=== PATIENT | male | born 1945 | race Hispanic/Latino ===

== ENCOUNTER 2016-10-02 16:33 | Observation (INO) | payer MEDICARE, OTHER ==
[2016-10-02 16:33] VITALS: BMI 22.1
[2016-10-02 17:18] LABS: BASO % 0.1 % (0.0-2.0); EOS # 0.5 K/uL (0.0-0.7); HEMATOCRIT 39.9 % (35.0-51.0); LYMPH # 2.5 K/uL (1.0-4.3); LYMPH % 32.3 % (20.0-40.0); MEAN CELL VOLUME 95.7 fl (80.0-94.0); MEAN CORPUSCULAR HEMOGLOBIN 32.1 pg (27.0-31.0); MEAN CORPUSCULAR HGB CONC 33.6 g/dL (33.0-37.0); MEAN PLATELET VOLUME 7.9 fl (7.2-11.7); MONO # 0.6 K/uL (0.0-0.8); MONO % 8.1 % (0.0-10.0); NEUT # 4.2 K/uL (1.8-7.0); NEUT % 53.5 % (50.0-75.0); RED CELL DISTRIBUTION WIDTH 14.3 % (11.5-14.5); WHITE BLOOD COUNT 7.8 K/uL (4.8-10.8)
[2016-10-02 17:28] LABS: ALB/GLOB RATIO 1.3 (1.0-2.1); ALKALINE PHOSPHATASE 56 U/L (38-126); ALT/SGPT 19 U/L (21-72); AST/SGOT 31 U/L (17-59); BILIRUBIN,TOTAL 0.5 mg/dl (0.2-1.3); BLOOD UREA NITROGEN 11 mg/dl (9-20); CALCIUM 9.1 mg/dL (8.4-10.2); CARBON DIOXIDE 25 mmol/L (22-30); CHLORIDE 105 mmol/L (98-107); CHOLESTEROL 135 mg/dL (0-199); GFR AFRICAN-AMERICAN > 60; GLUCOSE,RANDOM 91 mg/dL (75-110); POTASSIUM 3.7 MMOL/L (3.6-5.0); SODIUM 143 mmol/l (132-148); TOTAL PROTEIN 6.6 G/DL (6.3-8.2)
[2016-10-02 17:36] LABS: PARTIAL THROMBOPLASTIN TIME 28.3 SECONDS (23.3-32.5)
[2016-10-02 17:43] LABS: LIPASE < 10 U/L (23-300)
--- NOTE | 2016-10-02 18:55 | ED PDOC ---
HPI: Chest Pain Time Seen by Provider: 10/02/16 16:48 Chief Complaint (Nursing): Chest Pain Chief Complaint (Provider): Chest Pain History Per: Patient History/Exam Limitations: no limitations Onset/Duration Of Symptoms: Hrs (since this morning) Current Symptoms Are (Timing): Still Present Severity: Moderate Quality: Sharp ("like lightning", w/radiation to right) Associated Symptoms: Other (right knee pain w/radiation up towards right thigh) Additional Complaint(s): Xenia Blakely is a 70 year old male, with a past medical history inclusive of CAD (s/p HI and coronary stent placement x3), CHF, HTN, hyperlipidemia, COPD, diabetes and MS, who presents to the ED on 10/02/16, via EMS, for the evaluation of moderate chest pain that had woken him up from sleep this morning. Pain, localized centrally with radiation to the right, is further described as "sharp like lightning". Denies associated diaphoresis, shortness of breath, nausea, vomiting or abdominal pain. Patient is an active smoker. Of note, patient has a secondary complaint of right knee pain, described a as a burning sensation that radiates up into his thigh. Reports a prior history of restless leg syndrome. 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: [employer] Past Medical History Reviewed: Historical Data, Nursing Documentation, Vital Signs Vital Signs: Last Vital Signs Temp 98.0 F 10/02/16 16:40 Pulse 70 10/02/16 19:59 Resp 16 10/02/16 19:59 BP 99/33 L 10/02/16 19:59 Pulse Ox 99 10/02/16 19:59 - Medical History PMH: Anxiety, Asthma, Bronchitis, CAD (s/p HI), Cardia Arrhythmia, CHF, COPD, CVA, Depression, Diabetes, Emphysema, Fractures, HTN, Hypercholesterolemia, Hyperlipidemia, Multiple Sclerosis, TIA Denies: HIV, Chronic Kidney Disease - Surgical History Surgical History: Cholecystectomy, Coronary Stent (x3) Denies: CABG - Family History Family History: States: Diabetes - Social History Current smoker - smoking cessation education provided: Yes (light (<10 cigarettes/day)) Alcohol: Other (yes) Drugs: Denies - Home Medications Home Medications: Ambulatory Orders Medication Instructions Recorded Aspirin [Adult Low Dose Aspirin EC] 81 mg PO DAILY 06/06/16 Carvedilol [Coreg] 3.125 mg PO DAILY 06/06/16 Glyburide/Metformin HCl 1 tab PO BID 06/06/16 [Glyburide-Metformin 2.5-500 mg] Sertraline [Zoloft] 50 mg PO DAILY 06/06/16 Tamsulosin [Flomax] 0.4 mg PO DAILY 06/06/16 rOPINIRole [Requip] 0.5 mg PO BID 06/06/16 traMADol [Ultram] 50 mg PO TID 06/06/16 - Allergies Allergies/Adverse Reactions: Allergies Allergy/AdvReac Type Severity Reaction Status Date / Time ampicillin Allergy ANAPHYLAXIS Verified 10/02/16 16:40 codeine AdvReac HEADACHE Verified 10/02/16 16:40 Review of Systems ROS Statement: Except As Marked, All Systems Reviewed And Found Negative Constitutional: Negative for: Sweats Cardiovascular: Positive for: Chest Pain (centralized w/radiation to right, "sharp like lightning") Respiratory: Negative for: Shortness of Breath Gastrointestinal: Negative for: Nausea, Vomiting Physical Exam - Reviewed Nursing Documentation Reviewed: Yes Vital Signs Reviewed: Yes - Physical Exam Appears: Positive for: Non-toxic, No Acute Distress Head Exam: Positive for: ATRAUMATIC, NORMOCEPHALIC Skin: Positive for: Normal Color, Warm, Dry Eye Exam: Positive for: Normal appearance, PERRL Neck: Positive for: Normal, Painless ROM, Supple Cardiovascular/Chest: Positive for: Regular Rate, Rhythm, Chest Non Tender. Negative for: Murmur Respiratory: Positive for: Normal Breath Sounds. Negative for: Respiratory Distress Gastrointestinal/Abdominal: Positive for: Normal Exam, Soft. Negative for: Tenderness Extremity: Positive for: Normal ROM. Negative for: Swelling Neurologic/Psych: Positive for: Alert, Oriented - Laboratory Results Result Diagrams: 10/02/16 17:00 10/02/16 17:00 - ECG O2 Sat by Pulse Oximetry: 98 (RA) Pulse Ox Interpretation: Normal Medical Decision Making Medical Decision Makin:48 Initial Impression: chest pain EKG done in triage is unchanged from previous. Initial Plan: * CXR * XR Right Knee * Labs * Lipase * Lipid Panel * Troponin I * PTT * PT * Aspirin 162mg PO * Reevaluation Discussed case with Dr. Pandya, who has requested that the patient be admitted under the hospitalist. Scribe Attestation: Documented by Christi Cole, acting as a scribe for Annie Cunningham PA-C. Provider Scribe Attestation: All medical record entries made by the Scribe were at my direction and personally dictated by me. I have reviewed the chart and agree that the record accurately reflects my personal performance of the history, physical exam, medical decision making, and the department course for this patient. I have also personally directed, reviewed, and agree with the discharge instructions and disposition. Disposition - Clinical Impression Clinical Impression: Chest pain - Patient ED Disposition Is Patient to be Admitted: Yes Counseled Patient/Family Regarding: Diagnosis - Disposition Disposition Time: 20:03 Condition: GOOD - Pt Status Changed To: Hospital Disposition Of: Observation - Admit Certification Admit to Inpatient:: Telemetry - POA Present On Arrival: None
--- NOTE | 2016-10-02 20:06 | CP.PCM.HP ---
History of Present Illness - History of Present Illness History of Present Illness: CC: Chest pain, R knee pain HPI: This is a 69 y/o male with MHx significant for CAD with multiple stents, COPD, DM2, HTN, and HLD who comes in with c/o R knee pain and CP. He states that R knee pain started 2-3 days ago. It is described as a burning pain in the thigh with numbness at the knee. There is pain in the knee with motion. Denies any exertion or injury. Regarding the CP, this is somewhat of an exacerbation of his chronic CP it sounds like. While it may have been worse when he came in, now he states it is 'under control'. Denies f/cough/c/n/v/d. Patient has had multiple admissions for CP in the past ROS: 14 pt. ROS negative other than HPI. MHx: DM2, CAD, COPD, HTN, HLD SHx: Coronary stents, eye surgery Allergies: Ampicillin, Codeine Medications: As per HPI Family hx: Reviewed, no relevant family history Social hx: Lives alone, does not drink EtOH, Smokes ~1/2 ppd Surrogate dec mkr: Brother, Rodríguez Blakely, Present on Admission - Present on Admission Any Indicators Present on Admission: No Past Patient History - Infectious Disease Hx of Infectious Diseases: None - Tetanus Immunizations Tetanus Immunization: Unknown - Past Medical History & Family History Past Medical History?: Yes - Past Social History Alcohol: Other (yes) Drugs: Denies - CARDIAC Hx Cardia Arrhythmia: Yes Hx Congestive Heart Failure: Yes Hx Hypercholesterolemia: Yes Hx Hypertension: Yes - PULMONARY Hx Asthma: Yes Hx Bronchitis: Yes Hx Chronic Obstructive Pulmonary Disease (COPD): Yes Hx Emphysema: Yes - NEUROLOGICAL Hx Multiple Sclerosis: Yes Hx Transient Ischemic Attacks (TIA): Yes - HEENT Hx HEENT Problems: Yes Hx Cataracts: Yes - RENAL Hx Chronic Kidney Disease: No - ENDOCRINE/METABOLIC Hx Endocrine Disorders: Yes Hx Diabetes Mellitus Type 2: Yes - HEMATOLOGICAL/ONCOLOGICAL Hx Human Immunodeficiency Virus (HIV): No - INTEGUMENTARY Hx Dermatological Problems: No - MUSCULOSKELETAL/RHEUMATOLOGICAL Hx Fractures: Yes - GASTROINTESTINAL Hx Gastrointestinal Disorders: No - GENITOURINARY/GYNECOLOGICAL Hx Genitourinary Disorders: No - PSYCHIATRIC Hx Anxiety: Yes Hx Depression: Yes - SURGICAL HISTORY Hx Cholecystectomy: Yes Hx Coronary Artery Bypass Graft: No Hx Coronary Stent: Yes (x3) - ANESTHESIA Hx Anesthesia: Yes Hx Anesthesia Reactions: No Hx Malignant Hyperthermia: No Meds Allergies/Adverse Reactions: Allergies Allergy/AdvReac Type Severity Reaction Status Date / Time ampicillin Allergy ANAPHYLAXIS Verified 10/02/16 16:40 codeine AdvReac HEADACHE Verified 10/02/16 16:40 Physical Exam - Constitutional Appears: No Acute Distress - Head Exam Head Exam: ATRAUMATIC, NORMOCEPHALIC - Eye Exam Eye Exam: EOMI, PERRL - ENT Exam ENT Exam: Mucous Membranes Moist - Neck Exam Neck exam: Positive for: Full Rom - Respiratory Exam Respiratory Exam: Clear to Auscultation Bilateral, NORMAL BREATHING PATTERN - Cardiovascular Exam Cardiovascular Exam: REGULAR RHYTHM, +S1, +S2 - GI/Abdominal Exam GI & Abdominal Exam: Normal Bowel Sounds, Soft - Extremities Exam Additional comments: RLE with pain in the knee with passive motion, TTP about knee joint. No obvious swelling/redness/effusion noted. Does not appear to have any neurological deficits. - Neurological Exam Neurological exam: CN II-XII Intact, Oriented x3 - Psychiatric Exam Psychiatric exam: Normal Affect, Normal Mood - Skin Skin Exam: Dry, Warm Results - Vital Signs Recent Vital Signs: Last Vital Signs Temp 98.0 F 10/02/16 16:40 Pulse 70 10/02/16 19:59 Resp 16 10/02/16 19:59 BP 99/33 L 10/02/16 19:59 Pulse Ox 98 10/02/16 20:04 - Labs Result Diagrams: 10/02/16 17:00 10/02/16 17:00 Labs: Laboratory Results - last 24 hr 10/02/16 17:00 WBC 7.8 RBC 4.16 L Hgb 13.4 Hct 39.9 MCV 95.7 H MCH 32.1 H MCHC 33.6 RDW 14.3 Plt Count 189 MPV 7.9 Neut % (Auto) 53.5 Lymph % (Auto) 32.3 [place] % (Auto) 8.1 Eos % (Auto) 6.0 H Baso % (Auto) 0.1 Neut # 4.2 Lymph # 2.5 [place] # 0.6 Eos # 0.5 Baso # 0.0 PT 12.0 H INR 1.15 H APTT 28.3 Sodium 143 Potassium 3.7 Chloride 105 Carbon Dioxide 25 Anion Gap 16 BUN 11 Creatinine 0.9 Est GFR ( Amer) > 60 Est GFR (Non-Af Amer) > 60 Random Glucose 91 Calcium 9.1 Total Bilirubin 0.5 AST 31 ALT 19 L D Alkaline Phosphatase 56 Troponin I 0.0230 Total Protein 6.6 Albumin 3.7 Globulin 2.9 Albumin/Globulin Ratio 1.3 Triglycerides 114 D Cholesterol 135 LDL Cholesterol Direct 93 HDL Cholesterol 24 L Lipase < 10 L - EKG Data EKG Interpreted by: Myself EKG shows normal: Sinus rhythm Rate: Normal - Impressions Impression: PACs, IVCD with RBBB pattern, ?LVH - Imaging and Cardiology Chest x-ray Status: Image reviewed by me (prominent gastric bubble, some ? hyperinflation) Assessment & Plan (1) Chest pain Assessment and Plan: 69 y/o male with known CAD, HTN, HLD, DM2, and BPH who comes in to the ER again with c/o CP. Multiple admissions with similar complaints in the recent past. 1) CP, r/o ACS -Admit obs-tele -Serial trops -Repeat EKG in AM -ASA 325, SLNG PRN -Cont home medications for HLD and HTN -Cardiology consult with [facility] 2) DM2 -DM diet -ACHS Accucheck with SSI 3) Knee pain (r) -- no trauma, XR unrevealing -Pain control -Ortho consult in AM 4) DVT PPx - SQ Lovenox Status: Acute Priority: High (2) DVT prophylaxis Status: Acute (3) DM2 (diabetes mellitus, type 2) Status: Chronic Priority: Low (4) HTN (hypertension) Status: Chronic Priority: Low (5) HLD (hyperlipidemia) Status: Acute (6) Knee pain, acute Status: Acute
[2016-10-02] MEDS ORDERED: Oxycodone/Acetaminophen 5/325 mg Tab PO PRN (20:43)
[2016-10-02] MEDS ORDERED: Oxycodone/Acetaminophen 5/325 mg Tab ONE (21:42)
[2016-10-02] MEDS: Insulin Lispro (humaLOG) 100 Units/ml Inj SC SCH (22:34)
[2016-10-03] MEDS: Insulin Lispro (humaLOG) 100 Units/ml Inj SC SCH ×2 (06:45→12:05)
[2016-10-03 07:09] LABS: BASO # 0.1 K/uL (0.0-0.2); BASO % 1.1 % (0.0-2.0); EOS # 0.4 K/uL (0.0-0.7); HEMATOCRIT 39.9 % (35.0-51.0); LYMPH # 2.4 K/uL (1.0-4.3); MEAN CELL VOLUME 96.2 fl (80.0-94.0); MEAN CORPUSCULAR HEMOGLOBIN 32.5 pg (27.0-31.0); MEAN CORPUSCULAR HGB CONC 33.8 g/dL (33.0-37.0); MEAN PLATELET VOLUME 8.5 fl (7.2-11.7); MONO # 0.6 K/uL (0.0-0.8); MONO % 7.7 % (0.0-10.0); NEUT # 3.7 K/uL (1.8-7.0); NEUT % 51.2 % (50.0-75.0); RED CELL DISTRIBUTION WIDTH 14.4 % (11.5-14.5); WHITE BLOOD COUNT 7.2 K/uL (4.8-10.8)
[2016-10-03 07:23] LABS: BLOOD UREA NITROGEN 12 mg/dl (9-20); CALCIUM 8.9 mg/dL (8.4-10.2); CARBON DIOXIDE 27 mmol/L (22-30); CHLORIDE 105 mmol/L (98-107); GFR AFRICAN-AMERICAN > 60; GLUCOSE,RANDOM 73 mg/dL (75-110); POTASSIUM 4.4 MMOL/L (3.6-5.0); SODIUM 144 mmol/l (132-148)
[2016-10-03 08:10] VITALS: RESP 18
[2016-10-03] MEDS ORDERED: Patient's Own Med (Glyburide/Metformin Hcl [Glyburide-Metformin 2.5-500 Mg] 1 TAB) PO SCH (09:00)
[2016-10-03] MEDS ORDERED: Enoxaparin 40 mg Syringe SC SCH (09:00)
[2016-10-03] MEDS ORDERED: ROPINIROLE 0.5 MG PO SCH (09:00)
--- NOTE | 2016-10-03 09:07 | CP.PCM.CON ---
History of Present Illness - History of Present Illness History of Present Illness: 70 yo M with pmhx of MS, sig CAD, multiple stents, COPD, DMII, htn and hld admitted for c/o chest pain presents with c/o right knee pain. Orthopaedics consulted for evaluation and mangement of right knee pain. Pt states the right knee pain comes and goes, currently rates it a 7/10. Pt states he sometimes has pain due to his MS condition, however this knee pain started 2-3 days ago. Pt ambulates with cane for assistance. Pt denies any trauma or recent injury to right knee. Pt denies numbness/tingling to RLE. Review of Systems - Review of Systems Review of Systems: as per HPI Past Patient History - Infectious Disease Hx of Infectious Diseases: None - Tetanus Immunizations Tetanus Immunization: Unknown - Past Medical History & Family History Past Medical History?: Yes - Past Social History Smoking Status: Current Some Days Smoker - CARDIAC Hx Cardia Arrhythmia: Yes Hx Congestive Heart Failure: Yes Hx Hypercholesterolemia: Yes Hx Hypertension: Yes - PULMONARY Hx Asthma: Yes Hx Bronchitis: No Hx Chronic Obstructive Pulmonary Disease (COPD): Yes Hx Emphysema: Yes - NEUROLOGICAL Hx Multiple Sclerosis: Yes Hx Transient Ischemic Attacks (TIA): Yes - HEENT Hx HEENT Problems: Yes - RENAL Hx Chronic Kidney Disease: No - ENDOCRINE/METABOLIC Hx Endocrine Disorders: Yes Hx Diabetes Mellitus Type 2: Yes - HEMATOLOGICAL/ONCOLOGICAL Hx AIDS: No Hx Human Immunodeficiency Virus (HIV): No - INTEGUMENTARY Hx Dermatological Problems: No - MUSCULOSKELETAL/RHEUMATOLOGICAL Hx Musculoskeletal Disorders: No Hx Falls: No - GASTROINTESTINAL Hx Gastrointestinal Disorders: No - GENITOURINARY/GYNECOLOGICAL Hx Genitourinary Disorders: No - PSYCHIATRIC Hx Anxiety: Yes Hx Depression: No Hx Substance Use: No - SURGICAL HISTORY Hx Cholecystectomy: Yes Hx Coronary Artery Bypass Graft: No Hx Coronary Stent: Yes (x3) - ANESTHESIA Hx Anesthesia: Yes Hx Anesthesia Reactions: No Hx Malignant Hyperthermia: No Meds Allergies/Adverse Reactions: Allergies Allergy/AdvReac Type Severity Reaction Status Date / Time ampicillin Allergy ANAPHYLAXIS Verified 10/02/16 16:40 codeine AdvReac HEADACHE Verified 10/02/16 16:40 - Medications Medications: Current Medications Acetaminophen (Tylenol 325mg Tab) 650 mg PO Q6 PRN PRN Reason: Pain, Mild (1-3) Acetaminophen (Tylenol 325mg Tab) 650 mg PO Q6 PRN PRN Reason: Fever >100.4 F Aspirin (Aspirin) 325 mg PO DAILY [facility] Carvedilol (Coreg) 3.125 mg PO DAILY [facility] Enoxaparin Sodium (Lovenox) 40 mg SC DAILY [facility] PRN Reason: Protocol Glyburide (Micronase) 2.5 mg PO BID [facility] Home Med (Ropinirole [Requip]) 0.5 mg PO BID [facility] Insulin Human Lispro (Humalog) 0 units SC ACHS [facility] PRN Reason: Protocol Last Admin: 10/03/16 06:45 Dose: Not Given Metformin HCl (Glucophage) 500 mg PO BID [facility] Nitroglycerin (Nitrostat Sl Tab) 0.4 mg SL Q5M PRN PRN Reason: chest pain Oxycodone/Acetaminophen (Percocet 5/325 Mg Tab) 1 tab PO Q6 PRN PRN Reason: Pain, severe (8-10) Stop: 10/05/16 20:44 Last Admin: 10/02/16 21:52 Dose: 1 tab Sertraline HCl (Zoloft) 50 mg PO DAILY [facility] Tamsulosin HCl (Flomax) 0.4 mg PO DAILY [facility] Tramadol HCl (Ultram) 50 mg PO TID PRN PRN Reason: Pain, moderate (4-7) Physical Exam - Constitutional Appears: Well, No Acute Distress Additional comments: Right Knee: No effusion +TTP over medial joint line Normal ROM, no pain with ROM Active flexion to 95deg, full extension Neg anterior/posterior draw test Neg Micaela test Calves soft and nontender b/l N/V intact Distal pulses wnl Results - Vital Signs Recent Vital Signs: Last Vital Signs Temp 97.9 F 10/03/16 08:10 Pulse 62 10/03/16 08:10 Resp 18 10/03/16 08:10 BP 162/92 H 10/03/16 08:10 Pulse Ox 97 10/03/16 08:10 - Labs Result Diagrams: 10/03/16 06:00 10/03/16 06:00 Labs: Laboratory Results - last 24 hr 10/02/16 10/03/16 10/03/16 22:33 05:46 06:00 WBC 7.2 RBC 4.15 L Hgb 13.5 Hct 39.9 MCV 96.2 H MCH 32.5 H MCHC 33.8 RDW 14.4 Plt Count 180 MPV 8.5 Neut % (Auto) 51.2 Lymph % (Auto) 34.0 [place] % (Auto) 7.7 Eos % (Auto) 6.0 H Baso % (Auto) 1.1 Neut # 3.7 Lymph # 2.4 [place] # 0.6 Eos # 0.4 Baso # 0.1 Sodium 144 Potassium 4.4 Chloride 105 Carbon Dioxide 27 Anion Gap 15 BUN 12 Creatinine 0.9 Est GFR ( Amer) > 60 Est GFR (Non-Af Amer) > 60 POC Glucose (mg/dL) 93 76 Random Glucose 73 L Calcium 8.9 Troponin I 0.0250 Assessment & Plan - Assessment and Plan (Free Text) Assessment: 70 yo M with pmhx of MS, CAD< COPD, DMII, htn, hld presents with acute right knee pain AP and lat xrays of right knee reviewed and discussed with pt Xrays reveal mild to moderate OA of right knee, more prominent on medial side Recommend: Pain control PT/OT Pt can f/u in office for management of right knee OA
--- NOTE | 2016-10-03 10:23 | RAD ---
HISTORY: chest pain COMPARISON: June 24, 2016 TECHNIQUE: Chest PA and lateral FINDINGS: LUNGS: No active pulmonary disease. PLEURA: No significant pleural effusion identified. No pneumothorax apparent. CARDIOVASCULAR: Normal. OSSEOUS STRUCTURES: No significant abnormalities. VISUALIZED UPPER ABDOMEN: Normal. OTHER FINDINGS: None. IMPRESSION: No active disease. No significant interval change compared to the prior examination(s).
[2016-10-03] MEDS ORDERED: Lidocaine 5% Patch TD STA (11:43)
--- NOTE | 2016-10-03 12:09 | CP.PCM.CON ---
History of Present Illness - History of Present Illness History of Present Illness: THE PATIENT IS A 70 YEAR OLD MALE WITH A HISTORY OF CAD WITH AN OLD AWMI WHO HAS CORONARY STENT INSERTIONS, HYPERTENSION, HYPERLIPIDEMIA, DM, OLD CVA, CHEST WALL PAIN AND ARTHRITIS. HE NOW CAME TO THE ER FOR RIGHT KNEE PAIN BUT ALSO STATES THAT HE HAD ATYPICAL STABBING CHEST PAIN YESTERDAY EVEN BUT IT IS ESSENTIALY GONE. HE DENIES NAUSEA, VOMITING OR DIAPHORESIS. CARDDIOLOGY WAS ASKED TO SEE HIM. Past Patient History - Infectious Disease Hx of Infectious Diseases: None - Tetanus Immunizations Tetanus Immunization: Unknown - Past Medical History & Family History Past Medical History?: Yes - Past Social History Smoking Status: Current Some Days Smoker - CARDIAC Hx Cardia Arrhythmia: Yes Hx Congestive Heart Failure: Yes Hx Hypercholesterolemia: Yes Hx Hypertension: Yes - PULMONARY Hx Asthma: Yes Hx Bronchitis: No Hx Chronic Obstructive Pulmonary Disease (COPD): Yes Hx Emphysema: Yes - NEUROLOGICAL Hx Multiple Sclerosis: Yes Hx Transient Ischemic Attacks (TIA): Yes - HEENT Hx HEENT Problems: Yes - RENAL Hx Chronic Kidney Disease: No - ENDOCRINE/METABOLIC Hx Endocrine Disorders: Yes Hx Diabetes Mellitus Type 2: Yes - HEMATOLOGICAL/ONCOLOGICAL Hx AIDS: No Hx Human Immunodeficiency Virus (HIV): No - INTEGUMENTARY Hx Dermatological Problems: No - MUSCULOSKELETAL/RHEUMATOLOGICAL Hx Musculoskeletal Disorders: No Hx Falls: No - GASTROINTESTINAL Hx Gastrointestinal Disorders: No - GENITOURINARY/GYNECOLOGICAL Hx Genitourinary Disorders: No - PSYCHIATRIC Hx Anxiety: Yes Hx Depression: No Hx Substance Use: No - SURGICAL HISTORY Hx Cholecystectomy: Yes Hx Coronary Artery Bypass Graft: No Hx Coronary Stent: Yes (x3) - ANESTHESIA Hx Anesthesia: Yes Hx Anesthesia Reactions: No Hx Malignant Hyperthermia: No Meds Allergies/Adverse Reactions: Allergies Allergy/AdvReac Type Severity Reaction Status Date / Time ampicillin Allergy ANAPHYLAXIS Verified 10/02/16 16:40 codeine AdvReac HEADACHE Verified 10/02/16 16:40 - Medications Medications: Current Medications Acetaminophen (Tylenol 325mg Tab) 650 mg PO Q6 PRN PRN Reason: Pain, Mild (1-3) Acetaminophen (Tylenol 325mg Tab) 650 mg PO Q6 PRN PRN Reason: Fever >100.4 F Aspirin (Aspirin) 325 mg PO DAILY [facility] Last Admin: 10/03/16 09:12 Dose: 325 mg Carvedilol (Coreg) 3.125 mg PO DAILY [facility] Last Admin: 10/03/16 09:13 Dose: 3.125 mg Enoxaparin Sodium (Lovenox) 40 mg SC DAILY [facility] PRN Reason: Protocol Last Admin: 10/03/16 09:16 Dose: 40 mg Glyburide (Micronase) 2.5 mg PO BID [facility] Last Admin: 10/03/16 09:16 Dose: 2.5 mg Home Med (Ropinirole [Requip]) 0.5 mg PO BID [facility] Insulin Human Lispro (Humalog) 0 units SC ACHS [facility] PRN Reason: Protocol Last Admin: 10/03/16 12:05 Dose: Not Given Metformin HCl (Glucophage) 500 mg PO BID [facility] Last Admin: 10/03/16 09:14 Dose: 500 mg Nitroglycerin (Nitrostat Sl Tab) 0.4 mg SL Q5M PRN PRN Reason: chest pain Oxycodone/Acetaminophen (Percocet 5/325 Mg Tab) 1 tab PO Q6 PRN PRN Reason: Pain, severe (8-10) Stop: 10/05/16 20:44 Last Admin: 10/02/16 21:52 Dose: 1 tab Sertraline HCl (Zoloft) 50 mg PO DAILY [facility] Last Admin: 10/03/16 09:16 Dose: 50 mg Tamsulosin HCl (Flomax) 0.4 mg PO DAILY [facility] Last Admin: 10/03/16 09:14 Dose: 0.4 mg Tramadol HCl (Ultram) 50 mg PO TID PRN PRN Reason: Pain, moderate (4-7) Last Admin: 10/03/16 09:21 Dose: 50 mg Physical Exam - Respiratory Exam Respiratory Exam: Clear to Auscultation Bilateral - Cardiovascular Exam Cardiovascular Exam: REGULAR RHYTHM, +S1 - Additional Findings Additional findings: EKG NSR, IRBBB, OLD ASWMI TROPONINS NEGATIVE Results - Vital Signs Recent Vital Signs: Last Vital Signs Temp 97.9 F 10/03/16 08:10 Pulse 62 10/03/16 09:13 Resp 18 10/03/16 08:10 BP 162/92 H 10/03/16 09:13 Pulse Ox 97 10/03/16 08:10 - Labs Result Diagrams: 10/03/16 06:00 10/03/16 06:00 Labs: Laboratory Results - last 24 hr 10/02/16 10/03/16 10/03/16 22:33 05:46 06:00 WBC 7.2 RBC 4.15 L Hgb 13.5 Hct 39.9 MCV 96.2 H MCH 32.5 H MCHC 33.8 RDW 14.4 Plt Count 180 MPV 8.5 Neut % (Auto) 51.2 Lymph % (Auto) 34.0 [place] % (Auto) 7.7 Eos % (Auto) 6.0 H Baso % (Auto) 1.1 Neut # 3.7 Lymph # 2.4 [place] # 0.6 Eos # 0.4 Baso # 0.1 Sodium 144 Potassium 4.4 Chloride 105 Carbon Dioxide 27 Anion Gap 15 BUN 12 Creatinine 0.9 Est GFR ( Amer) > 60 Est GFR (Non-Af Amer) > 60 POC Glucose (mg/dL) 93 76 Random Glucose 73 L Calcium 8.9 Troponin I 0.0250 Assessment & Plan - Assessment and Plan (Free Text) Assessment: CAD PRESENT CHEST PAIN IS ATYPICAL AND EKG IS UNCHANGED FROM OLD ONE AND TROPONINS ARE NEGATICE HYPERTENSION RIGHT KNEE ARTHRITIS Plan: CONTINUE ASPIRIN, CARVEDILOL,, VALSARTAN, LOVENOX OK TO DISCHARGE PATIENT FROM CARDIAC [facility] WILL DO STRESS TEST OUT PATIENT
[2016-10-03 12:27] VITALS: BP 167/98; PULSE 66; TEMP 97.6; O2SAT 99
--- NOTE | 2016-10-03 13:54 | RAD ---
PROCEDURE: Right Knee Radiographs. HISTORY: right knee pain COMPARISON: None. FINDINGS: BONES: Normal. No fracture. JOINTS: Normal. No osteoarthritis. JOINT EFFUSION: None. OTHER FINDINGS: None. IMPRESSION: No significant or acute findings to account for/ related to the clinical presentation.
--- NOTE | 2016-10-03 14:09 | CP.PCM.DIS ---
Provider - Provider Date of Admission: 10/02/16 20:03 Attending physician: Dariana Maria MD Primary care physician: Dr House Consults: Cardio: Dr House Ortho: Dr Phillips Time Spent in preparation of Discharge (in minutes): 35 Diagnosis - Discharge Diagnosis (1) Chest pain Status: Acute Priority: High (2) Knee pain, acute Status: Acute (3) COPD (chronic obstructive pulmonary disease) Status: Chronic Priority: Low (4) DM2 (diabetes mellitus, type 2) Status: Chronic Priority: Low (5) HTN (hypertension) Status: Chronic Priority: Low Hospital Course - Lab Results Lab Results: Most Recent Lab Values WBC 7.2 K/uL (4.8-10.8) 10/03/16 06:00 RBC 4.15 Mil/uL (4.40-5.90) L 10/03/16 06:00 Hgb 13.5 g/dL (12.0-18.0) 10/03/16 06:00 Hct 39.9 % (35.0-51.0) 10/03/16 06:00 MCV 96.2 fl (80.0-94.0) H 10/03/16 06:00 MCH 32.5 pg (27.0-31.0) H 10/03/16 06:00 MCHC 33.8 g/dL (33.0-37.0) 10/03/16 06:00 RDW 14.4 % (11.5-14.5) 10/03/16 06:00 Plt Count 180 K/uL (130-400) 10/03/16 06:00 MPV 8.5 fl (7.2-11.7) 10/03/16 06:00 Neut % (Auto) 51.2 % (50.0-75.0) 10/03/16 06:00 Lymph % (Auto) 34.0 % (20.0-40.0) 10/03/16 06:00 [place] % (Auto) 7.7 % (0.0-10.0) 10/03/16 06:00 Eos % (Auto) 6.0 % (0.0-4.0) H 10/03/16 06:00 Baso % (Auto) 1.1 % (0.0-2.0) 10/03/16 06:00 Neut # 3.7 K/uL (1.8-7.0) 10/03/16 06:00 Lymph # 2.4 K/uL (1.0-4.3) 10/03/16 06:00 [place] # 0.6 K/uL (0.0-0.8) 10/03/16 06:00 Eos # 0.4 K/uL (0.0-0.7) 10/03/16 06:00 Baso # 0.1 K/uL (0.0-0.2) 10/03/16 06:00 PT 12.0 SECONDS (9.6-11.2) H 10/02/16 17:00 INR 1.15 (0.92-1.08) H 10/02/16 17:00 APTT 28.3 SECONDS (23.3-32.5) 10/02/16 17:00 Sodium 144 mmol/l (132-148) 10/03/16 06:00 Potassium 4.4 MMOL/L (3.6-5.0) 10/03/16 06:00 Chloride 105 mmol/L (98-107) 10/03/16 06:00 Carbon Dioxide 27 mmol/L (22-30) 10/03/16 06:00 Anion Gap 15 (10-20) 10/03/16 06:00 BUN 12 mg/dl (9-20) 10/03/16 06:00 Creatinine 0.9 mg/dL (0.8-1.5) 10/03/16 06:00 Est GFR ( Amer) > 60 10/03/16 06:00 Est GFR (Non-Af Amer) > 60 10/03/16 06:00 POC Glucose (mg/dL) 119 mg/dL (65-110) H 10/03/16 12:01 Random Glucose 73 mg/dL (75-110) L 10/03/16 06:00 Calcium 8.9 mg/dL (8.4-10.2) 10/03/16 06:00 Total Bilirubin 0.5 mg/dl (0.2-1.3) 10/02/16 17:00 AST 31 U/L (17-59) 10/02/16 17:00 ALT 19 U/L (21-72) L D 10/02/16 17:00 Alkaline Phosphatase 56 U/L (38-126) 10/02/16 17:00 Troponin I 0.0170 ng/mL (0.00-0.120) 10/03/16 12:41 Total Protein 6.6 G/DL (6.3-8.2) 10/02/16 17:00 Albumin 3.7 g/dL (3.5-5.0) 10/02/16 17:00 Globulin 2.9 gm/dL (2.2-3.9) 10/02/16 17:00 Albumin/Globulin Ratio 1.3 (1.0-2.1) 10/02/16 17:00 Triglycerides 114 mg/DL (0-149) D 10/02/16 17:00 Cholesterol 135 mg/dL (0-199) 10/02/16 17:00 LDL Cholesterol Direct 93 mg/dL (0-129) 10/02/16 17:00 HDL Cholesterol 24 MG/DL (30-70) L 10/02/16 17:00 Lipase < 10 U/L (23-300) L 10/02/16 17:00 - Hospital Course Hospital Course: 69 y/o male with known CAD, HTN, HLD, DM2, COPD and BPH who comes in to the ER again with c/o CP. Multiple admissions with similar complaints in the recent past. EKG no change from previous. Troponin x 3 negative. Cardio consulted. Also complained of Right knee pain . Xray : degenerative changes. Ortho consulted- rec Pain mgt and Physical therapy and ff up as outpt. pain improved with Ultram and Lidoderm patch 1) Chest Pain, ACS ruled out likely musculoskeletal Pain - observed in Telemetry - started on ASA, BB, ARB and statin - no EKG change - Trop x 3 neg -Cardiology - Dr House consulted 2) Right knee Pain likely Osteoarthritis, primary - Knee Xray : OA -Ortho consulted- rec Pain meds and PT -PT consulted- rec Outpt PT - Pain med- Ultram and Lidoderm patch- pain improved 3. DM type II -ACHS Accucheck with SSI - cont Metformin and Glyburide 4. COPD, chronic , stable - cont Advair and prn Alb/Atrovent 5. HTN uncontrolled - cont Coreg , add Diovan DVT PPx - SQ Lovenox Discharge Exam - Head Exam Head Exam: ATRAUMATIC, NORMAL INSPECTION, NORMOCEPHALIC - Eye Exam Eye Exam: EOMI, Normal appearance Pupil Exam: NORMAL ACCOMODATION - ENT Exam ENT Exam: Mucous Membranes Moist, Normal External Ear Exam - Neck Exam Neck exam: Full Rom - Respiratory Exam Respiratory Exam: NORMAL BREATHING PATTERN. absent: Respiratory Distress - Cardiovascular Exam Cardiovascular Exam: REGULAR RHYTHM, +S1, +S2 - GI/Abdominal Exam GI & Abdominal Exam: Normal Bowel Sounds, Soft. absent: Tenderness - Extremities Exam Extremities exam: normal capillary refill, pedal pulses present Additional comments: no calf tenderness - Back Exam Back exam: FULL ROM. absent: CVA tenderness (L), CVA tenderness (R) - Neurological Exam Neurological exam: Alert, CN II-XII Intact, Oriented x3, Reflexes Normal - Psychiatric Exam Psychiatric exam: Normal Affect, Normal Mood - Skin Skin Exam: Dry, Normal Color, Warm Discharge Plan - Discharge Medications Prescriptions: Fluticasone/Salmeterol 250/50 [Advair Diskus] 1 puff IH BID #1 puff Albuterol/Ipratropium [Combivent Respimat] 2 puff IH Q6 PRN #1 puff PRN Reason: Wheezing Valsartan [Diovan] 160 mg PO DAILY #30 tab Lidocaine 5% [Lidoderm] 1 ea TD DAILY #30 patch - Follow Up Plan Condition: GOOD Disposition: HOME/ ROUTINE Instructions: Chest Pain (DC), Arthritis (GEN) Additional Instructions: ff up with Dr House in 1 wk Outpt PT appt with Dr Phillips in 1-2 wks
--- NOTE | 2016-10-03 21:32 | CARD ---
APPROVED REPORT EKG Measurement Heart [id number] [id number] <Conclusion> Sinus rhythm with premature atrial complexes Incomplete right bundle branch block Left anterior fascicular block Left ventricular hypertrophy with repolarization abnormality Cannot rule out Septal infarct, age undetermined Consider anterior ischemia Abnormal ECG
== END 2016-10-03 15:50 | disposition home or self-care (01) ==
LOC: H.ER 16:33 → H.ERHOLD 20:03 → H.TEL 22:44
PROVIDERS: ADMIT Internal Medicine; ATTEND Internal Medicine
DX: R07.89 Other chest pain (principal); I25.10 Atherosclerotic heart disease of native coronary artery without angina pectoris; Z95.5 Presence of coronary angioplasty implant and graft; E78.5 Hyperlipidemia, unspecified; E11.9 Type 2 diabetes mellitus without complications; G35 Multiple sclerosis; E78.00 Pure hypercholesterolemia, unspecified; I45.10 Unspecified right bundle-branch block; J45.909 Unspecified asthma, uncomplicated; J44.9 Chronic obstructive pulmonary disease, unspecified; I11.0 Hypertensive heart disease with heart failure; I50.9 Heart failure, unspecified; M17.11 Unilateral primary osteoarthritis, right knee; N40.0 Benign prostatic hyperplasia without lower urinary tract symptoms; Z86.73 Personal history of transient ischemic attack (TIA), and cerebral infarction without residual deficits; F41.9 Anxiety disorder, unspecified; Z90.49 Acquired absence of other specified parts of digestive tract; Z87.891 Personal history of nicotine dependence
CPT/HCPCS: 36415; 71020; 73562; 80048; 80053; 80061; 82948; 83690; 84484; 85025; 85610; 85730; 93005; 97161; 99285; G0378; G8978; G8979; G8980; J1650

== ENCOUNTER 2016-11-16 10:06 | Observation (INO) | payer MEDICARE, OTHER ==
[2016-11-16 10:10] VITALS: BMI 20.9
--- NOTE | 2016-11-16 10:39 | ED PDOC ---
HPI: Chest Pain Time Seen by Provider: 11/16/16 10:32 Chief Complaint (Nursing): Chest Pain Chief Complaint (Provider): chest pain History Per: Patient History/Exam Limitations: no limitations Onset/Duration Of Symptoms: Days (930am) Current Symptoms Are (Timing): Better Additional Complaint(s): Pt. was doing well when he started getting chest pain, sweating, light-headed. Dyspnea with it. EMS called and brought to the ED. No syncope. Symptoms currently gone except for mild chest pain which is getting better. Is sternal and nonradiating. Not weakness, numbness, tingles, headaches, abd pain, nausea , vomit. No leg pain. Past Medical History Reviewed: Nursing Documentation, Vital Signs Vital Signs: Last Vital Signs Temp 98.7 F 11/16/16 10:09 Pulse 81 11/16/16 10:09 Resp 18 11/16/16 10:09 BP 122/66 11/16/16 10:09 Pulse Ox 98 11/16/16 12:21 - Medical History PMH: Anxiety, Asthma, CAD (s/p NV), Cardia Arrhythmia, CHF, COPD, CVA, Diabetes , Emphysema, Fractures, HTN, Hypercholesterolemia, Hyperlipidemia, Multiple Sclerosis, TIA Denies: Bronchitis, Depression, HIV, Chronic Kidney Disease - Surgical History Surgical History: Cholecystectomy, Coronary Stent (x3) Denies: CABG - Family History Family History: States: Unknown Family Hx, Diabetes - Home Medications Home Medications: Ambulatory Orders Medication Instructions Recorded Aspirin [Adult Low Dose Aspirin EC] 81 mg PO DAILY 06/06/16 Carvedilol [Coreg] 3.125 mg PO DAILY 06/06/16 Glyburide/Metformin HCl 1 tab PO BID 06/06/16 [Glyburide-Metformin 2.5-500 mg] Sertraline [Zoloft] 50 mg PO DAILY 06/06/16 Tamsulosin [Flomax] 0.4 mg PO DAILY 06/06/16 rOPINIRole [Requip] 0.5 mg PO BID 06/06/16 traMADol [Ultram] 50 mg PO TID 06/06/16 Albuterol/Ipratropium [Combivent 2 puff IH Q6 PRN #1 puff 10/03/16 Respimat] Valsartan [Diovan] 160 mg PO DAILY #30 tab 10/03/16 Albuterol HFA [Ventolin HFA 90 2 puff IH Q4H PRN 11/16/16 mcg/actuation (8 g)] Lidocaine 5% [Lidoderm] 1 ea TD DAILY PRN 11/16/16 - Allergies Allergies/Adverse Reactions: Allergies Allergy/AdvReac Type Severity Reaction Status Date / Time ampicillin Allergy ANAPHYLAXIS Verified 10/02/16 16:40 codeine AdvReac HEADACHE Verified 10/02/16 16:40 Review of Systems ROS Statement: Except As Marked, All Systems Reviewed And Found Negative Cardiovascular: Positive for: Chest Pain Respiratory: Positive for: Shortness of Breath Neurological: Positive for: Dizziness Physical Exam - Reviewed Nursing Documentation Reviewed: Yes Vital Signs Reviewed: Yes - Physical Exam Appears: Positive for: Non-toxic, No Acute Distress Head Exam: Positive for: ATRAUMATIC, NORMAL INSPECTION, NORMOCEPHALIC Skin: Positive for: Normal Color, Warm, DRY Eye Exam: Positive for: EOMI, Normal appearance, PERRL ENT: Positive for: Normal ENT Inspection Neck: Positive for: Normal, Painless ROM, Supple Cardiovascular/Chest: Positive for: Regular Rate, Rhythm. Negative for: Edema Respiratory: Positive for: CNT, Normal Breath Sounds Gastrointestinal/Abdominal: Positive for: Normal Exam, Bowel Sounds, Soft. Negative for: Tenderness Back: Positive for: Normal Inspection. Negative for: L CVA Tenderness, R CVA Tenderness Extremity: Positive for: Normal ROM. Negative for: Tenderness, Pedal Edema, Calf Tenderness Neurologic/Psych: Positive for: Alert, Oriented. Negative for: Motor/Sensory Deficits - Laboratory Results Result Diagrams: 11/16/16 11:05 11/16/16 11:05 Interpretation Of Abn Labs: no acute - ECG ECG: Positive for: Interpreted By Me, Viewed By Me ECG Rhythm: Positive for: Nonspecific Changes (similar to old) Interpretation Of Abn EKG: PVCs, LVH O2 Sat by Pulse Oximetry: 98 Pulse Ox Interpretation: Normal - Radiology X-Ray: Interpreted by Me, Viewed By Me X-Ray Interpretation: No Acute Disease - Progress ED Course And Treament: 1222: Pt. took a low does 81mg asa. Given 325mg asa and ntg in er. Pain free currently. AAOx3. Smiling and asking for food. 1238: Spoke with Dr. Rodriguez. Will consult. Spoke with Dr. Wu. Will admit tele obs. Disposition - Clinical Impression Clinical Impression: Chest pain - Patient ED Disposition Is Patient to be Admitted: Yes Doctor Will See Patient In The: ED Counseled Patient/Family Regarding: Studies Performed, Diagnosis - Disposition Disposition Time: 12:40 Condition: FAIR - Pt Status Changed To: Hospital Disposition Of: Observation - POA Present On Arrival: None Core Measure Indicators: Chest Pain
[2016-11-16] MEDS ORDERED: Sodium Chloride 0.9% 500 ML IV STA (10:41)
[2016-11-16 11:08] LABS: BASO % 1.4 % (0.0-2.0); EOS % 4.7 % (0.0-4.0); HEMATOCRIT 42.1 % (35.0-51.0); LYMPH % 22.5 % (20.0-40.0); MEAN CORPUSCULAR HEMOGLOBIN 32.6 pg (27.0-31.0); MEAN PLATELET VOLUME 7.2 fl (7.2-11.7); MONO % 6.9 % (0.0-10.0); NEUT # 5.3 K/uL (1.8-7.0); NEUT % 64.5 % (50.0-75.0); RED CELL DISTRIBUTION WIDTH 13.9 % (11.5-14.5); WHITE BLOOD COUNT 8.3 K/uL (4.8-10.8)
[2016-11-16 11:09] LABS: BASO # 0.1 K/uL (0.0-0.2); EOS # 0.4 K/uL (0.0-0.7); LYMPH # 1.9 K/uL (1.0-4.3); MONO # 0.6 K/uL (0.0-0.8)
[2016-11-16 11:24] LABS: ALB/GLOB RATIO 1.5 (1.0-2.1); ALKALINE PHOSPHATASE 66 U/L (38-126); ALT/SGPT 30 U/L (21-72); AST/SGOT 20 U/L (17-59); BILIRUBIN,TOTAL 0.4 mg/dl (0.2-1.3); BLOOD UREA NITROGEN 13 mg/dl (9-20); CALCIUM 8.9 mg/dL (8.4-10.2); CARBON DIOXIDE 23 mmol/L (22-30); CHLORIDE 102 mmol/L (98-107); GFR AFRICAN-AMERICAN > 60; GLUCOSE,RANDOM 149 mg/dL (75-110); POTASSIUM 4.3 MMOL/L (3.6-5.0); SODIUM 136 mmol/l (132-148); TOTAL PROTEIN 6.9 G/DL (6.3-8.2)
[2016-11-16 11:36] LABS: PARTIAL THROMBOPLASTIN TIME 27.5 SECONDS (23.3-32.5)
--- NOTE | 2016-11-16 12:41 | RAD ---
HISTORY: dyspnea COMPARISON: Comparison is made to 10/02/2016 FINDINGS: LUNGS: No active pulmonary disease. PLEURA: No significant pleural effusion identified, no pneumothorax apparent. CARDIOVASCULAR: Normal. OSSEOUS STRUCTURES: No significant abnormalities. VISUALIZED UPPER ABDOMEN: Normal. OTHER FINDINGS: None. IMPRESSION: No active disease.
--- NOTE | 2016-11-16 14:38 | CP.PCM.HP ---
History of Present Illness - History of Present Illness History of Present Illness: 71 y/o male, well known to our service, with PMH CAD (s/p PCI x3), HTN, HLD, DM2 , COPD,restless leg syndrome and MS brought to ER by EMS for episode of dizziness , diaphoresis and mild mid sternal non radiating chest pain. As per patient he has not been feeling well for the past 4-5 days with some nasal congestion . He was seen by his pulmonary who had started him on some nasal spray. Today while shopping he started feeling dizzy , weak and diaphoretic all of a sudden . he did experience some dull mid sternal chest pain showing npo radiation. patient was brought to Er for evaluation and was given ASa and nitro for chest pain with improvement. At present denies any SOB, palpitation, chest pain, headache,dizziness, blurry vision, weakness , numbness. He has nasal congestion .Denies any fever , chills,cough or sputum production . Allergies ; Codeine, PCN PMH : CAD (s/p PCI x3), HTN, HLD, DM2, COPD,restless leg syndrome and MS Medications; See Med-rec Surgery :eye surgery,cholecystectomy Family history : Not contributory Social history : Lives in [place] , alone,heavy smoker ROS ; 14 point review of system negative except above Present on Admission - Present on Admission Any Indicators Present on Admission: No Review of Systems - Review of Systems All systems: reviewed and no additional remarkable complaints except Past Patient History - Infectious Disease Hx of Infectious Diseases: None - Tetanus Immunizations Tetanus Immunization: Unknown - Past Medical History & Family History Past Medical History?: Yes - Past Social History Smoking Status: Heavy Smoker > 10 Cigarettes Daily Chewing Tobacco Use: No Cigar Use: No Alcohol: None Drugs: Denies Home Situation {Lives}: Alone - CARDIAC Hx Cardia Arrhythmia: Yes Hx Congestive Heart Failure: Yes Hx Hypercholesterolemia: Yes Hx Hypertension: Yes - PULMONARY Hx Asthma: Yes Hx Bronchitis: No Hx Chronic Obstructive Pulmonary Disease (COPD): Yes Hx Emphysema: Yes - NEUROLOGICAL Hx Multiple Sclerosis: Yes Hx Transient Ischemic Attacks (TIA): Yes - HEENT Hx HEENT Problems: Yes - RENAL Hx Chronic Kidney Disease: No - ENDOCRINE/METABOLIC Hx Endocrine Disorders: Yes Hx Diabetes Mellitus Type 2: Yes - HEMATOLOGICAL/ONCOLOGICAL Hx Human Immunodeficiency Virus (HIV): No - INTEGUMENTARY Hx Dermatological Problems: No - MUSCULOSKELETAL/RHEUMATOLOGICAL Hx Fractures: Yes - GASTROINTESTINAL Hx Gastrointestinal Disorders: No - GENITOURINARY/GYNECOLOGICAL Hx Genitourinary Disorders: No - PSYCHIATRIC Hx Anxiety: Yes Hx Depression: No - SURGICAL HISTORY Hx Cholecystectomy: Yes Hx Coronary Artery Bypass Graft: No Hx Coronary Stent: Yes (x3) - ANESTHESIA Hx Anesthesia: Yes Hx Anesthesia Reactions: No Hx Malignant Hyperthermia: No Meds Allergies/Adverse Reactions: Allergies Allergy/AdvReac Type Severity Reaction Status Date / Time ampicillin Allergy ANAPHYLAXIS Verified 10/02/16 16:40 codeine AdvReac HEADACHE Verified 10/02/16 16:40 Physical Exam - Constitutional Appears: Non-toxic, No Acute Distress, Other (smells nicotine) - Head Exam Head Exam: ATRAUMATIC, NORMAL INSPECTION, NORMOCEPHALIC - Eye Exam Eye Exam: EOMI, Normal appearance, PERRL Pupil Exam: NORMAL ACCOMODATION - ENT Exam ENT Exam: Mucous Membranes Moist, Normal Exam - Neck Exam Neck exam: Positive for: Full Rom, Normal Inspection. Negative for: Lymphadenopathy, Meningismus - Respiratory Exam Respiratory Exam: Clear to Auscultation Bilateral. absent: Accessory Muscle Use , Prolonged Expiratory Phase, Wheezes Additional comments: coarse breath sounds bilaterally - Cardiovascular Exam Cardiovascular Exam: REGULAR RHYTHM, RRR, +S1, +S2. absent: JVD - GI/Abdominal Exam GI & Abdominal Exam: Normal Bowel Sounds, Soft. absent: Distended, Guarding, Rebound, Tenderness - Rectal Exam Rectal Exam: Deferred - Extremities Exam Extremities exam: Positive for: normal capillary refill, normal inspection, pedal pulses present - Back Exam Back exam: NORMAL INSPECTION - Neurological Exam Neurological exam: Alert, CN II-XII Intact, Reflexes Normal - Psychiatric Exam Psychiatric exam: Normal Affect - Skin Skin Exam: Dry, Pallor, Warm Results - Vital Signs Recent Vital Signs: Last Vital Signs Temp 98.7 F 11/16/16 10:09 Pulse 81 11/16/16 10:09 Resp 18 11/16/16 10:09 BP 122/66 11/16/16 10:09 Pulse Ox 98 11/16/16 12:41 - Labs Result Diagrams: 11/16/16 11:05 11/16/16 11:05 - EKG Data EKG shows normal: Sinus rhythm Rate: Normal - Impressions Impression: T wave inversion to V3-V6 - Imaging and Cardiology Chest x-ray Additional comment: no active disease Assessment & Plan - Assessment and Plan (Free Text) Assessment: 71 y/o male, well known to our service, with PMH CAD (s/p PCI x3), HTN, HLD, DM2 , COPD,restless leg syndrome and MS brought to ER by EMS for episode of dizziness , diaphoresis and mild mid sternal non radiating chest pain. 1. Chest pain will place patient on observation in telemetry Cycle Troponins q8 hours cardiology consult with Dr. House Patient comes in with recurrent CP in setting of known CAD has had stress test mid 2014 which was apparently WNL continue ASA, statin, BB, ARB 2. COPD (chronic obstructive pulmonary disease) Currently does not seem to be having symptoms of COPD exac Cont q6h PRN duonebs flonase for nasal congestion 3. HTN (hypertension) Controlled Cont coreg,valsartan 4. CHF (congestive heart failure) Chronic, compensated Continue BB, ACEI 5 Multiple sclerosis MS as per patient ?? 6 Chronic pain Continue Tramadol TID PRN 7.BPH (benign prostatic hyperplasia) Continue Flomax 8. DM2 (diabetes mellitus, type 2) Stable DM diet ACHS Accucheck with SSI Check Hgb A1c 9. DVT prophylaxis SQ Lovenox
[2016-11-16] MEDS ORDERED: Patient's Own Med (Albuterol/Ipratropium [Combivent Respimat] 2 PUFF) IH PRN (15:13)
[2016-11-16] MEDS ORDERED: Albuterol HFA 90 mcg/actuation (8 g) IH PRN (15:13)
[2016-11-16 17:00] LABS: THYROID STIMULATING HORMONE 2.06 mIU/ML (0.46-4.68)
--- NOTE | 2016-11-16 18:41 | CARD ---
APPROVED REPORT EKG Measurement Heart [id number] AL [id number] <Conclusion> Sinus rhythm with occasional premature ventricular complexes Incomplete right bundle branch block Left anterior fascicular block Left ventricular hypertrophy with repolarization abnormality Anteroseptal infarct, age undetermined Abnormal ECG
--- NOTE | 2016-11-16 20:06 | CP.PCM.CON ---
History of Present Illness - History of Present Illness History of Present Illness: DTHE PATIENT IS A 71 YEAR OLD MALE WITH A HISTORY OF CAD WITH AN AWMI A FEW YEARS AND WAS A CODE HEART IN OUR ER AND WAS TRANSFERRED TO [facility] WHERE HE HAD AN EMERGENCY CARDIAC CATH AND INSERTION OF STENTS, HE ALSO HAS A HISTORY OF HYPERTENSION, HYPERLIPIDEMIA, TYPE 2 DM, COPD AND MS. HE GETS ADMITTED TO [facility] FOR CHEST PAIN OBSERVATION SEVERAL TIMES A YEAR AND THE CHEST PAIN IS USUALLY ATYPICAL AND HE HAS NEVER HAD A SECOND AK. HE HAS SINUSITIS WITH NASAL CONGESTION FOR SEVERAL DAUS WAS JUST STARTED ON A NASAL SPRAY. TODAY HE WAS OUT SHOPPING AND WAS ZIZZY, HAD DIAPHORESIS AND ABOUT 20 MINUTES OF ATYPICAL SHARP CHEST PAIN. IT WAS GONE BY THE TIME HE WAS SEEN IN THE ER AND HAS NOT RETURNED. CARDIOLOGY WAS ASKED TO SEE HIM ON CONSULTATION. Past Patient History - Infectious Disease Hx of Infectious Diseases: None - Tetanus Immunizations Tetanus Immunization: Unknown - Past Medical History & Family History Past Medical History?: Yes - Past Social History Smoking Status: Light Smoker < 10 Cigarettes Daily - CARDIAC Hx Cardiac Disorders: Yes Hx Cardia Arrhythmia: Yes Hx Congestive Heart Failure: Yes Hx Heart Attack: Yes Hx Hypercholesterolemia: Yes - PULMONARY Hx Respiratory Disorders: Yes Hx Asthma: Yes Hx Chronic Obstructive Pulmonary Disease (COPD): Yes Hx Emphysema: Yes - NEUROLOGICAL Hx Neurological Disorder: Yes HX Cerebrovascular Accident: Yes Hx Multiple Sclerosis: Yes Hx Transient Ischemic Attacks (TIA): Yes - HEENT Hx HEENT Problems: Yes - RENAL Hx Chronic Kidney Disease: No - ENDOCRINE/METABOLIC Hx Endocrine Disorders: Yes Hx Diabetes Mellitus Type 2: Yes - HEMATOLOGICAL/ONCOLOGICAL Hx Human Immunodeficiency Virus (HIV): No - INTEGUMENTARY Hx Dermatological Problems: No - MUSCULOSKELETAL/RHEUMATOLOGICAL Hx Falls: No Hx Fractures: Yes (b/l feet) - GASTROINTESTINAL Hx Gastrointestinal Disorders: No - GENITOURINARY/GYNECOLOGICAL Hx Genitourinary Disorders: No - PSYCHIATRIC Hx Substance Use: No - SURGICAL HISTORY Hx Cholecystectomy: Yes Hx Coronary Artery Bypass Graft: No Hx Coronary Stent: Yes (x3) - ANESTHESIA Hx Anesthesia: Yes Hx Anesthesia Reactions: No Hx Malignant Hyperthermia: No Has any member of the family had a problem w/ anesthesia?: No Meds Allergies/Adverse Reactions: Allergies Allergy/AdvReac Type Severity Reaction Status Date / Time ampicillin Allergy ANAPHYLAXIS Verified 10/02/16 16:40 codeine AdvReac HEADACHE Verified 10/02/16 16:40 - Medications Medications: Current Medications Acetaminophen (Tylenol 325mg Tab) 650 mg PO Q6 PRN PRN Reason: Pain, Mild (1-3) Acetaminophen (Tylenol 325mg Tab) 650 mg PO Q6 PRN PRN Reason: Fever >100.4 F Albuterol (Ventolin Hfa 90 Mcg/Actuation (8 G)) 2 puff IH Q4H PRN PRN Reason: Shortness of Breath Aspirin (Ecotrin) 81 mg PO DAILY [facility] Atorvastatin Calcium (Lipitor) 20 mg PO DAILY [facility] Carvedilol (Coreg) 3.125 mg PO DAILY [facility] Enoxaparin Sodium (Lovenox) 40 mg SC DAILY [facility] PRN Reason: Protocol Fluticasone Propionate (Flonase) 1 spr HENRIQUE BID [facility] Last Admin: 11/16/16 17:37 Dose: 1 spr Nitroglycerin (Nitrostat Sl Tab) 0.4 mg SL Q5M PRN PRN Reason: Pain, Mild (1-3) Last Admin: 11/16/16 10:47 Dose: 0.4 mg Nitroglycerin (Nitrostat Sl Tab) 0.4 mg SL Q5M PRN PRN Reason: chest pain Ondansetron HCl (Zofran Inj) 4 mg IVP Q6 PRN PRN Reason: Nausea/Vomiting Pantoprazole Sodium (Protonix Ec Tab) 40 mg PO DAILY [facility] Sertraline HCl (Zoloft) 50 mg PO DAILY [facility] Tamsulosin HCl (Flomax) 0.4 mg PO DAILY [facility] Tramadol HCl (Ultram) 50 mg PO TID PRN PRN Reason: Pain, severe (8-10) Valsartan (Diovan) 160 mg PO DAILY [facility] Physical Exam - Respiratory Exam Respiratory Exam: Clear to Auscultation Bilateral - Cardiovascular Exam Cardiovascular Exam: REGULAR RHYTHM, +S1, +S2 - Extremities Exam Additional comments: NO LE EDEMA - Additional Findings Additional findings: EKG NSR, OLD ASWMI, RBBB, SLIGHT ST ELEVATION IN LEADS V1-V3 AND T WAVES IN I,L , AND THE CHEST LEADS ARE CHRONIC SINCE HIS [place] TROPONIN NEGATIVE PBNP 0F 957 IS NORMAL FOR HIS AGE AND COPD CXR NAD Results - Vital Signs Recent Vital Signs: Last Vital Signs Temp 98.1 F 11/16/16 19:21 Pulse 74 11/16/16 19:21 Resp 20 11/16/16 19:21 BP 155/88 H 11/16/16 19:21 Pulse Ox 97 11/16/16 19:21 - Labs Result Diagrams: 11/16/16 11:05 11/16/16 11:05 Assessment & Plan - Assessment and Plan (Free Text) Assessment: CAD WIDTH PRIOR ASWMI AND CORONARY STENTING TODAY'S CHEST PAIN WAS ATYPICAL, HE IS NOW CHEST PAIN FREE, HIS EKG IS UNCHANGED FROM HIS BASELINE AND THE TROPONIN IS NEGATIVE HYPERTENSION HYPERLIPIDEMIA COPD Plan: DTHE PATIENT WAS ADMITTED TO 4N ON TELEMETRY O2, CARVEDILIL, VALSARTAN, ASPIRIN, LOVENOX, ATORVASTATIN SERIAL EKGS AND TROPONINS HE CAN BE DISCHARGED IN AM IF HIS TROPONINS ARE NEGATIVE AND EKG IS UNCHANGED OUT PATIENT PHARMACOLOGICAL STRESS TEST IN THE NEAR FUTURE
[2016-11-17 07:51] LABS: BASO # 0.1 K/uL (0.0-0.2); BASO % 1.1 % (0.0-2.0); EOS # 0.4 K/uL (0.0-0.7); EOS % 4.5 % (0.0-4.0); HEMATOCRIT 43.4 % (35.0-51.0); LYMPH # 2.8 K/uL (1.0-4.3); LYMPH % 33.5 % (20.0-40.0); MEAN CELL VOLUME 96.1 fl (80.0-94.0); MEAN CORPUSCULAR HEMOGLOBIN 31.8 pg (27.0-31.0); MEAN CORPUSCULAR HGB CONC 33.1 g/dL (33.0-37.0); MEAN PLATELET VOLUME 7.9 fl (7.2-11.7); MONO # 0.7 K/uL (0.0-0.8); MONO % 8.7 % (0.0-10.0); NEUT # 4.4 K/uL (1.8-7.0); NEUT % 52.2 % (50.0-75.0); RED CELL DISTRIBUTION WIDTH 14.1 % (11.5-14.5); WHITE BLOOD COUNT 8.5 K/uL (4.8-10.8)
[2016-11-17 08:38] LABS: BLOOD UREA NITROGEN 15 mg/dl (9-20); CALCIUM 9.3 mg/dL (8.4-10.2); CARBON DIOXIDE 28 mmol/L (22-30); CHLORIDE 102 mmol/L (98-107); GFR AFRICAN-AMERICAN > 60; GLUCOSE,RANDOM 88 mg/dL (75-110); POTASSIUM 4.2 MMOL/L (3.6-5.0); SODIUM 138 mmol/l (132-148)
[2016-11-17] MEDS ORDERED: Enoxaparin 40 mg Syringe SC SCH (09:00)
[2016-11-17] MEDS ORDERED: Pantoprazole 40 mg EC Tab PO SCH (09:00)
--- NOTE | 2016-11-17 11:10 | CP.PCM.DIS ---
Provider - Provider Date of Admission: 11/16/16 12:41 Attending physician: Rojas Wu MD Time Spent in preparation of Discharge (in minutes): 30 Hospital Course - Lab Results Lab Results: Most Recent Lab Values WBC 8.5 K/uL (4.8-10.8) 11/17/16 06:30 RBC 4.52 Mil/uL (4.40-5.90) 11/17/16 06:30 Hgb 14.4 g/dL (12.0-18.0) 11/17/16 06:30 Hct 43.4 % (35.0-51.0) 11/17/16 06:30 MCV 96.1 fl (80.0-94.0) H 11/17/16 06:30 MCH 31.8 pg (27.0-31.0) H 11/17/16 06:30 MCHC 33.1 g/dL (33.0-37.0) 11/17/16 06:30 RDW 14.1 % (11.5-14.5) 11/17/16 06:30 Plt Count 232 K/uL (130-400) 11/17/16 06:30 MPV 7.9 fl (7.2-11.7) 11/17/16 06:30 Neut % (Auto) 52.2 % (50.0-75.0) 11/17/16 06:30 Lymph % (Auto) 33.5 % (20.0-40.0) 11/17/16 06:30 [place] % (Auto) 8.7 % (0.0-10.0) 11/17/16 06:30 Eos % (Auto) 4.5 % (0.0-4.0) H 11/17/16 06:30 Baso % (Auto) 1.1 % (0.0-2.0) 11/17/16 06:30 Neut # 4.4 K/uL (1.8-7.0) 11/17/16 06:30 Lymph # 2.8 K/uL (1.0-4.3) 11/17/16 06:30 [place] # 0.7 K/uL (0.0-0.8) 11/17/16 06:30 Eos # 0.4 K/uL (0.0-0.7) 11/17/16 06:30 Baso # 0.1 K/uL (0.0-0.2) 11/17/16 06:30 PT 12.2 SECONDS (9.6-11.2) H 11/16/16 11:05 INR 1.17 (0.92-1.08) H 11/16/16 11:05 APTT 27.5 SECONDS (23.3-32.5) 11/16/16 11:05 Sodium 138 mmol/l (132-148) 11/17/16 06:30 Potassium 4.2 MMOL/L (3.6-5.0) 11/17/16 06:30 Chloride 102 mmol/L (98-107) 11/17/16 06:30 Carbon Dioxide 28 mmol/L (22-30) 11/17/16 06:30 Anion Gap 13 (10-20) 11/17/16 06:30 BUN 15 mg/dl (9-20) 11/17/16 06:30 Creatinine 0.9 mg/dL (0.8-1.5) 11/17/16 06:30 Est GFR ( Amer) > 60 11/17/16 06:30 Est GFR (Non-Af Amer) > 60 11/17/16 06:30 POC Glucose (mg/dL) 102 mg/dL (65-110) 11/16/16 21:29 Random Glucose 88 mg/dL (75-110) 11/17/16 06:30 Hemoglobin A1c 6.3 % (4.2-6.5) 11/16/16 11:30 Calcium 9.3 mg/dL (8.4-10.2) 11/17/16 06:30 Total Bilirubin 0.4 mg/dl (0.2-1.3) 11/16/16 11:05 AST 20 U/L (17-59) 11/16/16 11:05 ALT 30 U/L (21-72) 11/16/16 11:05 Alkaline Phosphatase 66 U/L (38-126) 11/16/16 11:05 Troponin I 0.0160 ng/mL (0.00-0.120) 11/17/16 07:15 NT-Pro-B Natriuret Pep 957 pg/ml (0-900) H 11/16/16 11:05 Total Protein 6.9 G/DL (6.3-8.2) 11/16/16 11:05 Albumin 4.1 g/dL (3.5-5.0) 11/16/16 11:05 Globulin 2.8 gm/dL (2.2-3.9) 11/16/16 11:05 Albumin/Globulin Ratio 1.5 (1.0-2.1) 11/16/16 11:05 Triglycerides 94 mg/DL (0-149) 11/16/16 11:30 Cholesterol 149 mg/dL (0-199) 11/16/16 11:30 LDL Cholesterol Direct 108 mg/dL (0-129) 11/16/16 11:30 HDL Cholesterol 26 MG/DL (30-70) L 11/16/16 11:30 TSH 3rd Generation 2.06 mIU/ML (0.46-4.68) 11/16/16 11:30 - Hospital Course Hospital Course: 71 y/o male, well known to our service, with PMH CAD (s/p PCI x3), HTN, HLD, DM2 , COPD,restless leg syndrome and MS brought to ER by EMS for episode of dizziness , diaphoresis and mild mid sternal non radiating chest pain. Patient cardiac enzymes were negative. Seen by Cardiology. Patient OK to be d/c home 1. Chest pain will place patient on observation in telemetry Cycle Troponins q8 hours ALL NEGATIVE cardiology consult with Dr. House Patient comes in with recurrent CP in setting of known CAD has had stress test mid 2014 which was apparently WNL continue ASA, statin, BB, ARB 2. COPD (chronic obstructive pulmonary disease) Currently does not seem to be having symptoms of COPD exac Cont q6h PRN duonebs flonase for nasal congestion 3. HTN (hypertension) Controlled Cont coreg,valsartan 4. CHF (congestive heart failure) Chronic, compensated Continue BB, ACEI 5 Multiple sclerosis MS as per patient ?? 6 Chronic pain Continue Tramadol TID PRN 7.BPH (benign prostatic hyperplasia) Continue Flomax 8. DM2 (diabetes mellitus, type 2) Stable DM diet ACHS Accucheck with SSI Check Hgb A1c 9. DVT prophylaxis SQ Lovenox Discharge Exam - Head Exam Head Exam: ATRAUMATIC, NORMAL INSPECTION, NORMOCEPHALIC - Eye Exam Eye Exam: EOMI, Normal appearance, PERRL Pupil Exam: NORMAL ACCOMODATION - ENT Exam ENT Exam: Mucous Membranes Moist, Normal Oropharynx - Neck Exam Neck exam: Full Rom - Respiratory Exam Respiratory Exam: Clear to PA & Lateral, NORMAL BREATHING PATTERN - Cardiovascular Exam Cardiovascular Exam: RRR, +S1, +S2 - GI/Abdominal Exam GI & Abdominal Exam: Normal Bowel Sounds, Soft. absent: Organomegaly, Tenderness - Extremities Exam Extremities exam: normal capillary refill, pedal pulses present - Back Exam Back exam: absent: CVA tenderness (L), CVA tenderness (R) - Neurological Exam Neurological exam: Alert, Oriented x3 - Psychiatric Exam Psychiatric exam: Normal Affect, Normal Mood - Skin Skin Exam: Dry, Warm Discharge Plan - Discharge Medications Prescriptions: Albuterol HFA [Ventolin HFA 90 mcg/actuation (8 g)] 2 puff IH Q4H PRN #1 PRN Reason: Shortness Of Breath Albuterol/Ipratropium [Combivent Respimat] 2 puff IH Q6 PRN #1 puff PRN Reason: Wheezing Aspirin [Adult Low Dose Aspirin EC] 81 mg PO DAILY #30 Carvedilol [Coreg] 3.125 mg PO DAILY #60 Glyburide/Metformin HCl [Glyburide-Metformin 2.5-500 mg] 1 tab PO BID #30 Lidocaine 5% [Lidoderm] 1 ea TD DAILY PRN #30 PRN Reason: Pain, Moderate (4-7) rOPINIRole [Requip] 0.5 mg PO BID #60 Rosuvastatin Calcium 40 mg PO HS #30 tablet Sertraline [Zoloft] 50 mg PO DAILY #30 Tamsulosin [Flomax] 0.4 mg PO DAILY #30 traMADol [Ultram] 50 mg PO TID #30 Valsartan [Diovan] 160 mg PO DAILY #30 tab - Follow Up Plan Condition: FAIR Disposition: HOME/ ROUTINE
[2016-11-17 12:48] VITALS: BP 166/91; PULSE 74; RESP 18; TEMP 98.2; O2SAT 97
== END 2016-11-17 14:24 | disposition home or self-care (01) ==
LOC: H.ER 10:06 → H.ERHOLD 12:41 → H.TEL 16:15
PROVIDERS: ADMIT Hospitalist; ATTEND Hospitalist
DX: R07.89 Other chest pain (principal); J44.9 Chronic obstructive pulmonary disease, unspecified; E11.9 Type 2 diabetes mellitus without complications; E78.5 Hyperlipidemia, unspecified; I25.10 Atherosclerotic heart disease of native coronary artery without angina pectoris; I11.0 Hypertensive heart disease with heart failure; G35 Multiple sclerosis; G89.29 Other chronic pain; N40.0 Benign prostatic hyperplasia without lower urinary tract symptoms; G25.81 Restless legs syndrome; Z95.5 Presence of coronary angioplasty implant and graft; E78.00 Pure hypercholesterolemia, unspecified; F17.200 Nicotine dependence, unspecified, uncomplicated; I50.9 Heart failure, unspecified; J45.909 Unspecified asthma, uncomplicated; Z86.73 Personal history of transient ischemic attack (TIA), and cerebral infarction without residual deficits; Z90.49 Acquired absence of other specified parts of digestive tract
CPT/HCPCS: 36415; 71010; 80048; 80053; 80061; 82948; 83036; 83880; 84443; 84484; 85025; 85610; 85730; 93005; 99284; G0378; J1650; J7040

== ENCOUNTER 2017-03-17 11:07 | Observation (INO) | payer MEDICARE ==
[2017-03-17 11:11] VITALS: BMI 18.4
--- NOTE | 2017-03-17 11:52 | ED PDOC ---
Syncope/Near Syncope/Dizziness Time Seen by Provider: 03/17/17 11:39 Chief Complaint (Nursing): Dizziness/Lightheaded Chief Complaint (Provider): Near syncope History Per: Patient History/Exam Limitations: no limitations Current Symptoms Are (Timing): Still Present Additional Complaint(s): 71 y/o male with a past medical history of chronic obstructive pulmonary disease (COPD), diabetes, hypertension, and cardiac artery disease (CAD) who presents to the emergency department via ambulance after experiencing near syncopal episode followed by chest pain radiating through the back. Associated with chronic cough and white sputum. Denies fever or change in shortness of breath. Past Medical History Reviewed: Historical Data, Nursing Documentation, Vital Signs Vital Signs: Last Vital Signs Temp 97.8 F 03/17/17 11:10 Pulse 74 03/17/17 11:38 Resp 16 03/17/17 11:10 BP 128/55 L 03/17/17 11:10 Pulse Ox 96 03/17/17 11:10 - Medical History PMH: Anxiety, Asthma, CAD, Cardia Arrhythmia, CHF, COPD, CVA, Diabetes, Emphysema, Fractures (b/l feet), HTN, Hypercholesterolemia, Hyperlipidemia, Multiple Sclerosis, TIA Denies: Bronchitis, Depression, HIV, Chronic Kidney Disease - Surgical History Surgical History: Cholecystectomy, Coronary Stent (x3) Denies: CABG - Family History Family History: States: Unknown Family Hx, Diabetes - Social History Current smoker - smoking cessation education provided: Yes (Light Smoker < 10 Cigarettes Daily) Alcohol: None Drugs: Denies - Home Medications Home Medications: Ambulatory Orders Medication Instructions Recorded Albuterol HFA [Ventolin HFA 90 2 puff IH Q4H PRN #1 11/17/16 mcg/actuation (8 g)] Albuterol/Ipratropium [Combivent 2 puff IH Q6 PRN #1 puff 11/17/16 Respimat] Aspirin [Adult Low Dose Aspirin EC] 81 mg PO DAILY #30 11/17/16 Carvedilol [Coreg] 3.125 mg PO DAILY #60 11/17/16 Glyburide/Metformin HCl 1 tab PO BID #30 11/17/16 [Glyburide-Metformin 2.5-500 mg] Lidocaine 5% [Lidoderm] 1 ea TD DAILY PRN #30 11/17/16 Rosuvastatin Calcium 40 mg PO HS #30 tablet 11/17/16 Sertraline [Zoloft] 50 mg PO DAILY #30 11/17/16 Tamsulosin [Flomax] 0.4 mg PO DAILY #30 11/17/16 Valsartan [Diovan] 160 mg PO DAILY #30 tab 11/17/16 rOPINIRole [Requip] 0.5 mg PO BID #60 11/17/16 traMADol [Ultram] 50 mg PO TID #30 11/17/16 - Allergies Allergies/Adverse Reactions: Allergies Allergy/AdvReac Type Severity Reaction Status Date / Time ampicillin Allergy ANAPHYLAXIS Verified 03/17/17 11:28 codeine AdvReac HEADACHE Verified 03/17/17 11:28 Review of Systems ROS Statement: Except As Marked, All Systems Reviewed And Found Negative Constitutional: Negative for: Fever Cardiovascular: Positive for: Chest Pain (radiating through the back) Respiratory: Positive for: Cough (Chronic), Sputum (White (Chronic)). Negative for: Shortness of Breath Neurological: Positive for: Other (Near syncopal episode) Physical Exam - Reviewed Nursing Documentation Reviewed: Yes Vital Signs Reviewed: Yes - Physical Exam Appears: Positive for: Non-toxic, No Acute Distress Head Exam: Positive for: ATRAUMATIC, NORMAL INSPECTION, NORMOCEPHALIC Skin: Positive for: Normal Color, Warm, Dry Cardiovascular/Chest: Positive for: Regular Rate, Rhythm. Negative for: Murmur Respiratory: Positive for: Decreased Breath Sounds, Rhonchi (Scattered rhonchi bilaterally). Negative for: Normal Breath Sounds, Accessory Muscle Use, Wheezing, Respiratory Distress Gastrointestinal/Abdominal: Positive for: Normal Exam, Soft. Negative for: Tenderness Extremity: Positive for: Normal ROM. Negative for: Calf Tenderness, Swelling Neurologic/Psych: Positive for: Alert, Oriented (x3) - Laboratory Results Result Diagrams: 03/17/17 11:55 03/17/17 11:55 - ECG O2 Sat by Pulse Oximetry: 96 (RA) Pulse Ox Interpretation: Normal Medical Decision Making Medical Decision Making: Time: 11:45 Initial Impression: Near Syncope Initial Plan: --EKG --CMP --Troponin I --CBC w. diff --Chest x-ray --Head CT --Reevaluation Scribe Attestation: Documented by Mildred Warner, acting as a scribe for Pete F Safran MD. Provider Scribe Attestation: All medical record entries made by the Scribe were at my direction and personally dictated by me. I have reviewed the chart and agree that the record accurately reflects my personal performance of the history, physical exam, medical decision making, and the department course for this patient. I have also personally directed, reviewed, and agree with the discharge instructions and disposition. Disposition - Clinical Impression Clinical Impression: Chest pain, Syncope - Patient ED Disposition Is Patient to be Admitted: Yes - Disposition Disposition Time: 12:58 Condition: FAIR Forms: [id number] (Fijian) - Pt Status Changed To: Hospital Disposition Of: Observation - POA Present On Arrival: None
[2017-03-17 12:15] LABS: BASO # 0.1 K/uL (0.0-0.2); BASO % 1.1 % (0.0-2.0); EOS # 0.3 K/uL (0.0-0.7); EOS % 3.8 % (0.0-4.0); HEMATOCRIT 42.3 % (35.0-51.0); LYMPH # 2.1 K/uL (1.0-4.3); LYMPH % 24.1 % (20.0-40.0); MEAN CELL VOLUME 95.2 fl (80.0-94.0); MEAN CORPUSCULAR HEMOGLOBIN 31.9 pg (27.0-31.0); MEAN CORPUSCULAR HGB CONC 33.6 g/dL (33.0-37.0); MONO # 0.8 K/uL (0.0-0.8); MONO % 8.9 % (0.0-10.0); NEUT # 5.5 K/uL (1.8-7.0); NEUT % 62.1 % (50.0-75.0); RED CELL DISTRIBUTION WIDTH 13.7 % (11.5-14.5); WHITE BLOOD COUNT 8.8 K/uL (4.8-10.8)
[2017-03-17 12:28] LABS: ALB/GLOB RATIO 1.2 (1.0-2.1); ALKALINE PHOSPHATASE 74 U/L (38-126); ALT/SGPT 18 U/L (21-72); AST/SGOT 25 U/L (17-59); BILIRUBIN,TOTAL 0.7 mg/dl (0.2-1.3); BLOOD UREA NITROGEN 11 mg/dl (9-20); CALCIUM 9.3 mg/dL (8.4-10.2); CARBON DIOXIDE 22 mmol/L (22-30); CHLORIDE 104 mmol/L (98-107); GFR AFRICAN-AMERICAN > 60; GLUCOSE,RANDOM 148 mg/dL (75-110); SODIUM 137 mmol/l (132-148); TOTAL PROTEIN 7.9 G/DL (6.3-8.2)
[2017-03-17 12:43] LABS: POTASSIUM 4.4 MMOL/L (3.6-5.0)
--- NOTE | 2017-03-17 13:42 | CP.PCM.HP ---
History of Present Illness - History of Present Illness History of Present Illness: 71 yo male with history of CAD (3 stents 2 yrs ago), DM2, HTN, COPD and MS brought in by EMS complaining of sudden left sided chest pain radiating to the back associated with dizziness and diaphoresis. Also complained of right sided neck pain not associated with the chest pain. Present on Admission - Present on Admission Any Indicators Present on Admission: No History of DVT/PE: No History of Uncontrolled Diabetes: No Urinary Catheter: No Decubitus Ulcer Present: No Review of Systems - Review of Systems All systems: reviewed and no additional remarkable complaints except (aside from those mentioned above, 12 point system review were negative by me) Past Patient History - Infectious Disease Hx of Infectious Diseases: None - Tetanus Immunizations Tetanus Immunization: Unknown - Past Medical History & Family History Past Medical History?: Yes - Past Social History Smoking Status: Light Smoker < 10 Cigarettes Daily (former heavy smoker (2-3PPD ) cut down on smoking around 2 yrs ago) Alcohol: None Drugs: Denies Home Situation {Lives}: With Family - CARDIAC Hx Cardia Arrhythmia: Yes Hx Congestive Heart Failure: Yes Hx Hypercholesterolemia: Yes Hx Hypertension: Yes - PULMONARY Hx Asthma: Yes Hx Bronchitis: No Hx Chronic Obstructive Pulmonary Disease (COPD): Yes Hx Emphysema: Yes - NEUROLOGICAL Hx Multiple Sclerosis: Yes Hx Transient Ischemic Attacks (TIA): Yes - HEENT Hx HEENT Problems: Yes - RENAL Hx Chronic Kidney Disease: No - ENDOCRINE/METABOLIC Hx Endocrine Disorders: Yes Hx Diabetes Mellitus Type 2: Yes - HEMATOLOGICAL/ONCOLOGICAL Hx Human Immunodeficiency Virus (HIV): No - INTEGUMENTARY Hx Dermatological Problems: No - MUSCULOSKELETAL/RHEUMATOLOGICAL Hx Fractures: Yes (b/l feet) - GASTROINTESTINAL Hx Gastrointestinal Disorders: No - GENITOURINARY/GYNECOLOGICAL Hx Genitourinary Disorders: No - PSYCHIATRIC Hx Anxiety: Yes Hx Depression: No - SURGICAL HISTORY Hx Cholecystectomy: Yes Hx Coronary Artery Bypass Graft: No Hx Coronary Stent: Yes (x3) - ANESTHESIA Hx Anesthesia: Yes Hx Anesthesia Reactions: No Hx Malignant Hyperthermia: No Meds Allergies/Adverse Reactions: Allergies Allergy/AdvReac Type Severity Reaction Status Date / Time ampicillin Allergy ANAPHYLAXIS Verified 03/17/17 11:28 codeine AdvReac HEADACHE Verified 03/17/17 11:28 Physical Exam - Constitutional Appears: No Acute Distress - Head Exam Head Exam: ATRAUMATIC - Eye Exam Eye Exam: absent: Scleral icterus - ENT Exam ENT Exam: Mucous Membranes Moist - Neck Exam Neck exam: Negative for: Meningismus - Respiratory Exam Respiratory Exam: absent: Rhonchi, Wheezes, Respiratory Distress - Cardiovascular Exam Cardiovascular Exam: REGULAR RHYTHM, +S1, +S2 - GI/Abdominal Exam GI & Abdominal Exam: Soft. absent: Tenderness - Rectal Exam Rectal Exam: Deferred - Extremities Exam Extremities exam: Negative for: calf tenderness, pedal edema - Back Exam Back exam: absent: tenderness - Neurological Exam Neurological exam: Alert, Oriented x3 - Psychiatric Exam Psychiatric exam: Normal Affect - Skin Skin Exam: Dry, Intact Results - Vital Signs Recent Vital Signs: Last Vital Signs Temp 97.8 F 03/17/17 11:10 Pulse 74 03/17/17 11:38 Resp 16 03/17/17 11:10 BP 128/55 L 03/17/17 11:10 Pulse Ox 96 03/17/17 12:58 - Labs Result Diagrams: 03/17/17 11:55 03/17/17 11:55 Labs: Laboratory Results - last 24 hr 03/17/17 03/17/17 11:55 11:55 WBC 8.8 RBC 4.45 Hgb 14.2 Hct 42.3 MCV 95.2 H MCH 31.9 H MCHC 33.6 RDW 13.7 Plt Count 300 MPV 8.0 Neut % (Auto) 62.1 Lymph % (Auto) 24.1 [place] % (Auto) 8.9 Eos % (Auto) 3.8 Baso % (Auto) 1.1 Neut # 5.5 Lymph # 2.1 [place] # 0.8 Eos # 0.3 Baso # 0.1 Sodium 137 Potassium 4.4 Chloride 104 Carbon Dioxide 22 Anion Gap 15 BUN 11 Creatinine 0.9 Est GFR ( Amer) > 60 Est GFR (Non-Af Amer) > 60 Random Glucose 148 H Calcium 9.3 Total Bilirubin 0.7 AST 25 ALT 18 L D Alkaline Phosphatase 74 Troponin I 0.0190 Total Protein 7.9 Albumin 4.3 Globulin 3.6 Albumin/Globulin Ratio 1.2 Assessment & Plan (1) Acute chest pain Status: Acute Comment: place patient on observation. serial Troponin and EKG. continue ASA, Coreg and statin (2) COPD (chronic obstructive pulmonary disease) Status: Chronic Priority: Low Comment: asymptomatic. Duoneb via nebulizer q 4hrs prn (3) DM2 (diabetes mellitus, type 2) Status: Chronic Comment: alka NEVES. diabetic diet. Glyburide 2.5mg PO BID. Metformin 500mg PO BID. HgA1C (03/02/17): 6.2 (4) HTN (hypertension) Status: Chronic Priority: Low Comment: BP stable. Coreg 3.125mg PO BID. Diovan 160mg PO daily (5) DVT prophylaxis Status: Acute Comment: Lovenox 40mg SC daily
[2017-03-17] MEDS ORDERED: Patient's Own Med (Albuterol/Ipratropium [Combivent Respimat] 2 PUFF) IH PRN (14:20)
[2017-03-17] MEDS ORDERED: Influenza Vaccine 18yr & older 0.5 ML/45 MCG SYR IM ONE (15:10)
--- NOTE | 2017-03-17 16:28 | RAD ---
HISTORY: Near syncope COMPARISON: Comparison is made to 11/16/2016 TECHNIQUE: Chest PA and lateral FINDINGS: LUNGS: No active pulmonary disease. PLEURA: No significant pleural effusion identified. No pneumothorax apparent. CARDIOVASCULAR: Normal. OSSEOUS STRUCTURES: No significant abnormalities. VISUALIZED UPPER ABDOMEN: Normal. OTHER FINDINGS: None. IMPRESSION: No active disease.
[2017-03-17] MEDS ORDERED: ROPINIROLE 0.5 MG PO SCH (17:00)
[2017-03-18 05:47] LABS: BLOOD UREA NITROGEN 12 mg/dl (9-20); CALCIUM 9.3 mg/dL (8.4-10.2); CARBON DIOXIDE 22 mmol/L (22-30); CHLORIDE 104 mmol/L (98-107); CHOLESTEROL 151 mg/dL (0-199); GFR AFRICAN-AMERICAN > 60; GLUCOSE,RANDOM 68 mg/dL (75-110); SODIUM 137 mmol/l (132-148)
[2017-03-18 05:50] LABS: BASO # 0.1 K/uL (0.0-0.2); BASO % 1.1 % (0.0-2.0); EOS # 0.3 K/uL (0.0-0.7); EOS % 4.1 % (0.0-4.0); HEMATOCRIT 39.4 % (35.0-51.0); LYMPH # 1.9 K/uL (1.0-4.3); LYMPH % 22.6 % (20.0-40.0); MEAN CELL VOLUME 94.5 fl (80.0-94.0); MEAN CORPUSCULAR HEMOGLOBIN 31.8 pg (27.0-31.0); MEAN CORPUSCULAR HGB CONC 33.6 g/dL (33.0-37.0); MONO # 0.7 K/uL (0.0-0.8); NEUT # 5.3 K/uL (1.8-7.0); NEUT % 64.2 % (50.0-75.0); RED CELL DISTRIBUTION WIDTH 13.6 % (11.5-14.5); WHITE BLOOD COUNT 8.3 K/uL (4.8-10.8)
[2017-03-18 08:28] VITALS: RESP 18
[2017-03-18] MEDS ORDERED: Enoxaparin 40 mg Syringe SC SCH (09:00)
--- NOTE | 2017-03-18 10:11 | CP.PCM.CON ---
Past Patient History - Infectious Disease Hx of Infectious Diseases: None - Tetanus Immunizations Tetanus Immunization: Unknown - Past Medical History & Family History Past Medical History?: Yes - Past Social History Smoking Status: Light Smoker < 10 Cigarettes Daily - CARDIAC Hx Cardia Arrhythmia: Yes Hx Congestive Heart Failure: Yes Hx Hypercholesterolemia: Yes Hx Hypertension: Yes - PULMONARY Hx Asthma: Yes Hx Bronchitis: No Hx Chronic Obstructive Pulmonary Disease (COPD): Yes Hx Emphysema: Yes - NEUROLOGICAL HX Cerebrovascular Accident: Yes Hx Multiple Sclerosis: Yes Hx Transient Ischemic Attacks (TIA): Yes - HEENT Hx HEENT Problems: Yes - RENAL Hx Chronic Kidney Disease: No - ENDOCRINE/METABOLIC Hx Endocrine Disorders: Yes Hx Diabetes Mellitus Type 2: Yes - HEMATOLOGICAL/ONCOLOGICAL Hx Human Immunodeficiency Virus (HIV): No - INTEGUMENTARY Hx Dermatological Problems: No - MUSCULOSKELETAL/RHEUMATOLOGICAL Hx Falls: No Hx Fractures: Yes (b/l feet) - GASTROINTESTINAL Hx Gastrointestinal Disorders: No - GENITOURINARY/GYNECOLOGICAL Hx Genitourinary Disorders: No - PSYCHIATRIC Hx Anxiety: Yes Hx Depression: No Hx Substance Use: No - SURGICAL HISTORY Hx Cholecystectomy: Yes Hx Coronary Artery Bypass Graft: No Hx Coronary Stent: Yes (x3) - ANESTHESIA Hx Anesthesia: Yes Hx Anesthesia Reactions: No Hx Malignant Hyperthermia: No Meds Allergies/Adverse Reactions: Allergies Allergy/AdvReac Type Severity Reaction Status Date / Time ampicillin Allergy ANAPHYLAXIS Verified 03/17/17 11:28 codeine AdvReac HEADACHE Verified 03/17/17 11:28 - Medications Medications: Current Medications Albuterol/Ipratropium (Duoneb 3 Mg/0.5 Mg (3 Ml) Ud) 3 ml INH RQID [facility] Aspirin (Ecotrin) 81 mg PO DAILY [facility] Last Admin: 03/18/17 09:29 Dose: 81 mg Atorvastatin Calcium (Lipitor) 20 mg PO HS [facility] Last Admin: 03/17/17 22:09 Dose: 20 mg Carvedilol (Coreg) 3.125 mg PO Q12 [facility] Stop: 03/18/17 23:59 Last Admin: 03/18/17 09:28 Dose: 3.125 mg Enoxaparin Sodium (Lovenox) 40 mg SC DAILY [facility] PRN Reason: Protocol Last Admin: 03/18/17 09:30 Dose: 40 mg Glyburide (Micronase) 2.5 mg PO Q12 [facility] Last Admin: 03/18/17 09:28 Dose: 2.5 mg Home Med (Albuterol/Ipratropium [Combivent Respimat]) 2 puff IH Q6 PRN PRN Reason: Wheezing Home Med (Ropinirole [Requip]) 0.5 mg PO BID [facility] Metformin HCl (Glucophage) 500 mg PO BIDWM [facility] Last Admin: 03/18/17 09:28 Dose: 500 mg Montelukast Sodium (Singulair) 10 mg PO DAILY [facility] Sertraline HCl (Zoloft) 50 mg PO DAILY [facility] Last Admin: 03/18/17 09:30 Dose: 50 mg Tamsulosin HCl (Flomax) 0.4 mg PO DAILY [facility] Last Admin: 03/18/17 09:29 Dose: 0.4 mg Tramadol HCl (Ultram) 50 mg PO TID [facility] Last Admin: 03/18/17 09:35 Dose: 50 mg Valsartan (Diovan) 160 mg PO DAILY [facility] Last Admin: 03/18/17 09:30 Dose: 160 mg Results - Vital Signs Recent Vital Signs: Last Vital Signs Temp 97.5 F L 03/18/17 08:00 Pulse 65 03/18/17 09:28 Resp 18 03/18/17 08:00 BP 111/70 03/18/17 09:28 Pulse Ox 99 03/18/17 08:00 - Labs Result Diagrams: 03/18/17 04:15 03/18/17 04:15 Labs: Laboratory Results - last 24 hr 03/17/17 03/17/17 03/17/17 11:33 11:55 11:55 WBC 8.8 RBC 4.45 Hgb 14.2 Hct 42.3 MCV 95.2 H MCH 31.9 H MCHC 33.6 RDW 13.7 Plt Count 300 MPV 8.0 Neut % (Auto) 62.1 Lymph % (Auto) 24.1 [place] % (Auto) 8.9 Eos % (Auto) 3.8 Baso % (Auto) 1.1 Neut # 5.5 Lymph # 2.1 [place] # 0.8 Eos # 0.3 Baso # 0.1 Sodium 137 Potassium 4.4 Chloride 104 Carbon Dioxide 22 Anion Gap 15 BUN 11 Creatinine 0.9 Est GFR ( Amer) > 60 Est GFR (Non-Af Amer) > 60 POC Glucose (mg/dL) 160 H Random Glucose 148 H Calcium 9.3 Total Bilirubin 0.7 AST 25 ALT 18 L D Alkaline Phosphatase 74 Troponin I 0.0190 Total Protein 7.9 Albumin 4.3 Globulin 3.6 Albumin/Globulin Ratio 1.2 Triglycerides Cholesterol LDL Cholesterol Direct HDL Cholesterol 03/17/17 03/17/17 03/17/17 16:03 20:19 21:12 WBC RBC Hgb Hct MCV MCH MCHC RDW Plt Count MPV Neut % (Auto) Lymph % (Auto) [place] % (Auto) Eos % (Auto) Baso % (Auto) Neut # Lymph # [place] # Eos # Baso # Sodium Potassium Chloride Carbon Dioxide Anion Gap BUN Creatinine Est GFR ( Amer) Est GFR (Non-Af Amer) POC Glucose (mg/dL) 170 H 125 H Random Glucose Calcium Total Bilirubin AST ALT Alkaline Phosphatase Troponin I 0.0220 Total Protein Albumin Globulin Albumin/Globulin Ratio Triglycerides Cholesterol LDL Cholesterol Direct HDL Cholesterol 03/18/17 03/18/17 03/18/17 04:15 04:15 05:18 WBC 8.3 RBC 4.17 L Hgb 13.3 Hct 39.4 MCV 94.5 H MCH 31.8 H MCHC 33.6 RDW 13.6 Plt Count 256 MPV 8.0 Neut % (Auto) 64.2 Lymph % (Auto) 22.6 [place] % (Auto) 8.0 Eos % (Auto) 4.1 H Baso % (Auto) 1.1 Neut # 5.3 Lymph # 1.9 [place] # 0.7 Eos # 0.3 Baso # 0.1 Sodium 137 Potassium 4.0 Chloride 104 Carbon Dioxide 22 Anion Gap 15 BUN 12 Creatinine 0.9 Est GFR ( Amer) > 60 Est GFR (Non-Af Amer) > 60 POC Glucose (mg/dL) 70 Random Glucose 68 L Calcium 9.3 Total Bilirubin AST ALT Alkaline Phosphatase Troponin I 0.0280 Total Protein Albumin Globulin Albumin/Globulin Ratio Triglycerides 159 H D Cholesterol 151 LDL Cholesterol Direct 111 HDL Cholesterol 19 L Assessment & Plan (1) Near syncope Status: Acute Priority: High Comment: Associated with sweating and SOB. (2) Nicotine dependence Status: Chronic Priority: High Comment: Continued cigarette use despite multiple attempts to stop. (3) Chest pain Status: Acute Priority: High Comment: Appears more musculoskeletal than cardiac in etiology. (4) COPD (chronic obstructive pulmonary disease) Status: Chronic Priority: Low Comment: Discontinue coreg and begin Toprol XL 25MG POOD. Continue Duoneb QID. Add montelukast back to present regimen. - Date & Time Date: 03/18/17 Time: 10:09
--- NOTE | 2017-03-18 11:11 | CP.PCM.DIS ---
Provider - Provider Date of Admission: 03/17/17 12:58 Attending physician: Miguel Childers MD Primary care physician: Dr Pandya Consults: Dr Pandya Time Spent in preparation of Discharge (in minutes): 25 Diagnosis - Discharge Diagnosis (1) Acute chest pain Status: Acute Comment: non-cardiac chest pain. discharge in stable condition and chest pain free (2) COPD (chronic obstructive pulmonary disease) Status: Chronic Priority: Low Comment: denied SOB. Tessalon 1 tab PO TID prn for cough. Albuterol inhaler 2 puffs q 4hrs prn for wheezing/SOB. Montelukast 10mg PO daily (3) DM2 (diabetes mellitus, type 2) Status: Chronic Comment: BS controlled. Metformin 500mg PO BID (4) HTN (hypertension) Status: Chronic Priority: Low Comment: BP stable. continue Toprol XL and Lisinopril Hospital Course - Lab Results Lab Results: Most Recent Lab Values WBC 8.3 K/uL (4.8-10.8) 03/18/17 04:15 RBC 4.17 Mil/uL (4.40-5.90) L 03/18/17 04:15 Hgb 13.3 g/dL (12.0-18.0) 03/18/17 04:15 Hct 39.4 % (35.0-51.0) 03/18/17 04:15 MCV 94.5 fl (80.0-94.0) H 03/18/17 04:15 MCH 31.8 pg (27.0-31.0) H 03/18/17 04:15 MCHC 33.6 g/dL (33.0-37.0) 03/18/17 04:15 RDW 13.6 % (11.5-14.5) 03/18/17 04:15 Plt Count 256 K/uL (130-400) 03/18/17 04:15 MPV 8.0 fl (7.2-11.7) 03/18/17 04:15 Neut % (Auto) 64.2 % (50.0-75.0) 03/18/17 04:15 Lymph % (Auto) 22.6 % (20.0-40.0) 03/18/17 04:15 [place] [place] % (Auto) 8.0 % (0.0-10.0) 03/18/17 04:15 Eos % (Auto) 4.1 % (0.0-4.0) H 03/18/17 04:15 Baso % (Auto) 1.1 % (0.0-2.0) 03/18/17 04:15 Neut # 5.3 K/uL (1.8-7.0) 03/18/17 04:15 Lymph # 1.9 K/uL (1.0-4.3) 03/18/17 04:15 [facility] # 0.7 K/uL (0.0-0.8) 03/18/17 04:15 Eos # 0.3 K/uL (0.0-0.7) 03/18/17 04:15 Baso # 0.1 K/uL (0.0-0.2) 03/18/17 04:15 Sodium 137 mmol/l (132-148) 03/18/17 04:15 Potassium 4.0 MMOL/L (3.6-5.0) 03/18/17 04:15 Chloride 104 mmol/L (98-107) 03/18/17 04:15 Carbon Dioxide 22 mmol/L (22-30) 03/18/17 04:15 Anion Gap 15 (10-20) 03/18/17 04:15 BUN 12 mg/dl (9-20) 03/18/17 04:15 Creatinine 0.9 mg/dL (0.8-1.5) 03/18/17 04:15 Est GFR ( Amer) > 60 03/18/17 04:15 Est GFR (Non-Af Amer) > 60 03/18/17 04:15 POC Glucose (mg/dL) 87 mg/dL (65-110) 03/18/17 10:48 Random Glucose 68 mg/dL (75-110) L 03/18/17 04:15 Calcium 9.3 mg/dL (8.4-10.2) 03/18/17 04:15 Total Bilirubin 0.7 mg/dl (0.2-1.3) 03/17/17 11:55 AST 25 U/L (17-59) 03/17/17 11:55 ALT 18 U/L (21-72) L D 03/17/17 11:55 Alkaline Phosphatase 74 U/L (38-126) 03/17/17 11:55 Troponin I 0.0280 ng/mL (0.00-0.120) 03/18/17 04:15 Total Protein 7.9 G/DL (6.3-8.2) 03/17/17 11:55 Albumin 4.3 g/dL (3.5-5.0) 03/17/17 11:55 Globulin 3.6 gm/dL (2.2-3.9) 03/17/17 11:55 Albumin/Globulin Ratio 1.2 (1.0-2.1) 03/17/17 11:55 Triglycerides 159 mg/DL (0-149) H D 03/18/17 04:15 Cholesterol 151 mg/dL (0-199) 03/18/17 04:15 LDL Cholesterol Direct 111 mg/dL (0-129) 03/18/17 04:15 HDL Cholesterol 19 MG/DL (30-70) L 03/18/17 04:15 - Hospital Course Hospital Course: 71 yo male with history of CAD (3 stents 2 yrs ago), DM2, HTN, COPD and MS brought in by EMS complaining of sudden left sided chest pain radiating to the back associated with dizziness and diaphoresis. Also complained of right sided neck pain not associated with the chest pain. Series of Troponin and EKG were negative for ischemic events. Patient denied recurrence of chest pain while in the unit. Discharge Exam - Head Exam Head Exam: ATRAUMATIC - Eye Exam Eye Exam: absent: Scleral icterus - ENT Exam ENT Exam: Mucous Membranes Moist - Respiratory Exam Respiratory Exam: absent: Rales, Rhonchi, Wheezes, Respiratory Distress - Cardiovascular Exam Cardiovascular Exam: REGULAR RHYTHM, +S1, +S2 - GI/Abdominal Exam GI & Abdominal Exam: Soft. absent: Tenderness - Rectal Exam Rectal Exam: Deferred - Neurological Exam Neurological exam: Alert, Oriented x3 - Psychiatric Exam Psychiatric exam: Normal Affect - Skin Skin Exam: Dry, Intact Discharge Plan - Discharge Medications Prescriptions: Benzonatate [Tessalon Perles] 100 mg PO TID PRN #21 sgl PRN Reason: Cough Metoprolol Succinate [Toprol XL] 25 mg PO DAILY #30 tab Montelukast [Singulair] 10 mg PO DAILY #30 tab - Follow Up Plan Condition: FAIR Disposition: HOME/ ROUTINE
--- NOTE | 2017-03-18 11:39 | CARD ---
APPROVED REPORT EKG Measurement Heart [id number] <Conclusion> Normal sinus rhythm Left anterior fascicular block Left ventricular hypertrophy with QRS widening Anteroseptal infarct, age undetermined ST & T wave abnormality, consider lateral ischemia Abnormal ECG
[2017-03-18] MEDS ORDERED: Albuterol-Ipratrop 3 mg / 0.5 (3 ml) UD INH SCH (12:00)
[2017-03-18 12:21] VITALS: BP 137/73; PULSE 73; TEMP 98; O2SAT 97
[2017-03-19] MEDS ORDERED: Metoprolol Succinate 25 mg XL Tab PO SCH (09:00)
== END 2017-03-18 13:17 | disposition home or self-care (01) ==
LOC: H.ER 11:07 → H.ERHOLD 12:58 → H.TEL 14:28
DX: R07.89 Other chest pain (principal); R55 Syncope and collapse; M54.2 Cervicalgia; E11.9 Type 2 diabetes mellitus without complications; E78.00 Pure hypercholesterolemia, unspecified; E78.5 Hyperlipidemia, unspecified; G35 Multiple sclerosis; F17.210 Nicotine dependence, cigarettes, uncomplicated; I25.10 Atherosclerotic heart disease of native coronary artery without angina pectoris; Z86.73 Personal history of transient ischemic attack (TIA), and cerebral infarction without residual deficits; I11.0 Hypertensive heart disease with heart failure; I50.9 Heart failure, unspecified; Z95.5 Presence of coronary angioplasty implant and graft; Z23 Encounter for immunization; Z88.6 Allergy status to analgesic agent; Z88.0 Allergy status to penicillin; F41.9 Anxiety disorder, unspecified; J45.909 Unspecified asthma, uncomplicated; J43.9 Emphysema, unspecified
CPT/HCPCS: 36415; 71020; 80048; 80053; 80061; 82948; 84484; 85025; 93005; 99285; G0008; G0378; J1650; Q2035

== ENCOUNTER 2017-06-06 09:36 | Inpatient (IN) | payer MEDICARE ==
[2017-06-06 09:38] VITALS: BMI 19.9
[2017-06-06] MEDS ORDERED: Albuterol 0.083% Inhal Sol (2.5 mg/3 mL) UD INH ONE (10:43)
--- NOTE | 2017-06-06 10:49 | ED PDOC ---
HPI: Chest Pain Time Seen by Provider: 06/06/17 10:15 Chief Complaint (Nursing): Chest Pain Chief Complaint (Provider): Chest Pain History Per: Patient History/Exam Limitations: no limitations Onset/Duration Of Symptoms: Days (x 1) Current Symptoms Are (Timing): Better Additional Complaint(s): Xenia is a 71 y/o male with a history of multiple sclerosis, hypertension, COPD , diabetes, BPH, and high lipids, who presents to the ED complaining of mid- sternal chest pain that started last night with associated sweating. Patient denies shortness of breath, fever, or vomiting, and states the pain is now resolved. PMD: Andi Pandya Past Medical History Reviewed: Historical Data, Nursing Documentation, Vital Signs Vital Signs: Last Vital Signs Temp 97 F L 06/06/17 14:02 Pulse 80 06/06/17 14:12 Resp 17 06/06/17 14:02 BP 117/58 L 06/06/17 14:02 Pulse Ox 98 06/06/17 14:12 - Medical History PMH: Anxiety, Asthma, CAD, Cardia Arrhythmia, CHF, COPD, CVA, Diabetes, Emphysema, Fractures (b/l feet), HTN, Hypercholesterolemia, Hyperlipidemia, Multiple Sclerosis, TIA Denies: Bronchitis, Depression, HIV, Chronic Kidney Disease - Surgical History Surgical History: Cholecystectomy, Coronary Stent (x3) Denies: CABG - Family History Family History: States: Unknown Family Hx, Diabetes - Social History Current smoker - smoking cessation education provided: Yes (few cigarettes/day) Alcohol: None Drugs: Denies - Home Medications Home Medications: Ambulatory Orders Medication Instructions Recorded Albuterol HFA [Ventolin HFA 90 2 puff IH Q6H PRN 06/06/17 mcg/actuation (8 g)] Aspirin [Ecotrin] 81 mg PO DAILY 06/06/17 Carvedilol [Coreg] 3.125 mg PO DAILY 06/06/17 Glyburide/Metformin HCl 1 tab PO BID 06/06/17 [Glyburide-Metformin 2.5-500 mg] Metoprolol Succinate [Toprol XL] 25 mg PO DAILY 06/06/17 Ropinirole HCl [Requip] 0.5 mg PO BID 06/06/17 Sertraline [Zoloft] 50 mg PO DAILY 06/06/17 Tamsulosin [Flomax] 0.4 mg PO DAILY 06/06/17 traMADol [Ultram] 50 mg PO TID 06/06/17 - Allergies Allergies/Adverse Reactions: Allergies Allergy/AdvReac Type Severity Reaction Status Date / Time ampicillin Allergy ANAPHYLAXIS Verified 03/17/17 11:28 codeine AdvReac HEADACHE Verified 03/17/17 11:28 Review of Systems ROS Statement: Except As Marked, All Systems Reviewed And Found Negative Constitutional: Positive for: Sweats. Negative for: Fever Cardiovascular: Positive for: Chest Pain Respiratory: Negative for: Shortness of Breath Gastrointestinal: Negative for: Vomiting Physical Exam - Reviewed Nursing Documentation Reviewed: Yes Vital Signs Reviewed: Yes - Physical Exam Appears: Positive for: Well, Non-toxic, No Acute Distress Skin: Positive for: Normal Color, Warm, Dry Eye Exam: Positive for: Normal appearance Cardiovascular/Chest: Positive for: Regular Rate, Rhythm Respiratory: Positive for: Normal Breath Sounds. Negative for: Respiratory Distress Neurologic/Psych: Positive for: Alert, Oriented. Negative for: Motor/Sensory Deficits - Laboratory Results Result Diagrams: 06/06/17 10:53 06/06/17 10:53 - ECG ECG: Positive for: Interpreted By Me, Viewed By Me ECG Rhythm: Positive for: Sinus Rhythm Interpretation Of Abn EKG: ventricular hypertrophy; ST depressions V4-V6 - also present in prior EKG 03/17/17 Rate: 80 (bpm) O2 Sat by Pulse Oximetry: 98 (RA) Pulse Ox Interpretation: Normal Medical Decision Making Medical Decision Making: Time: 10:42 Initial Impression: Chest Pain; rule out CAD Initial Plan: --CMP --Troponin I --CBC --Chest XR --Albuterol --Peak Flow Pre/Post Time: 11:50 --EKG shows normal sinus rhythm, ventricular hypertrophy, and ST depressions V4- V6. ST depressions also noted in prior EKG on 03/17/17 Time: 12:51 CHEST XR FINDINGS: LUNGS: No active pulmonary disease. PLEURA: No significant pleural effusion identified, no pneumothorax apparent. CARDIOVASCULAR: Normal. OSSEOUS STRUCTURES: No significant abnormalities. VISUALIZED UPPER ABDOMEN: Normal. OTHER FINDINGS: None. IMPRESSION: No active disease. No significant interval change compared to the prior examination(s). Time: 12:55 --Troponin I: 0.8840 --Patient was informed of lab results. Aspirin ordered --Patient's e learning developer ordered chest XR after consultation. Time: 1:30 --Patient's e learning developer, Dr. House, was consulted and agrees with plan to admit patient --Dr. Corona hospitalist will admit Scribe Attestation: Documented by Pa Perdue, acting as a scribe for Susie Clemons MD Provider Scribe Attestation: All medical record entries made by the Scribe were at my direction and personally dictated by me. I have reviewed the chart and agree that the record accurately reflects my personal performance of the history, physical exam, medical decision making, and the department course for this patient. I have also personally directed, reviewed, and agree with the discharge instructions and disposition. Disposition - Clinical Impression Clinical Impression: Acute chest pain - Patient ED Disposition Is Patient to be Admitted: Yes Discussed With DrJennifer: Maximo House Counseled Patient/Family Regarding: Studies Performed, Diagnosis, Need For Followup, Rx Given - Disposition Disposition: Transfer of Care Disposition Time: 01:45 Condition: STABLE
[2017-06-06] MEDS ORDERED: Albuterol 0.042% Inhal Sol (1.25 mg/3 mL) UD ONE (10:54)
[2017-06-06 10:57] LABS: BASO # 0.1 K/uL (0.0-0.2); BASO % 1.3 % (0.0-2.0); EOS # 0.1 K/uL (0.0-0.7); EOS % 1.2 % (0.0-4.0); HEMATOCRIT 37.9 % (35.0-51.0); LYMPH # 1.6 K/uL (1.0-4.3); LYMPH % 17.2 % (20.0-40.0); MEAN CELL VOLUME 94.7 fl (80.0-94.0); MEAN CORPUSCULAR HEMOGLOBIN 32.1 pg (27.0-31.0); MEAN CORPUSCULAR HGB CONC 33.9 g/dL (33.0-37.0); MEAN PLATELET VOLUME 8.8 fl (7.2-11.7); MONO # 0.8 K/uL (0.0-0.8); MONO % 8.8 % (0.0-10.0); NEUT # 6.6 K/uL (1.8-7.0); NEUT % 71.5 % (50.0-75.0); RED CELL DISTRIBUTION WIDTH 13.9 % (11.5-14.5); WHITE BLOOD COUNT 9.2 K/uL (4.8-10.8)
[2017-06-06 11:18] LABS: ALB/GLOB RATIO 1.2 (1.0-2.1); ALKALINE PHOSPHATASE 69 U/L (38-126); ALT/SGPT 19 U/L (21-72); AST/SGOT 17 U/L (17-59); BILIRUBIN,TOTAL 0.8 mg/dl (0.2-1.3); BLOOD UREA NITROGEN 10 mg/dl (9-20); CALCIUM 8.9 mg/dL (8.4-10.2); CARBON DIOXIDE 21 mmol/L (22-30); CHLORIDE 103 mmol/L (98-107); GFR AFRICAN-AMERICAN > 60; GLUCOSE,RANDOM 140 mg/dL (75-110); SODIUM 135 mmol/l (132-148); TOTAL PROTEIN 7.2 G/DL (6.3-8.2)
--- NOTE | 2017-06-06 12:52 | RAD ---
HISTORY: chest pain COMPARISON: 03/17/2017 FINDINGS: LUNGS: No active pulmonary disease. PLEURA: No significant pleural effusion identified, no pneumothorax apparent. CARDIOVASCULAR: Normal. OSSEOUS STRUCTURES: No significant abnormalities. VISUALIZED UPPER ABDOMEN: Normal. OTHER FINDINGS: None. IMPRESSION: No active disease. No significant interval change compared to the prior examination(s).
[2017-06-06] MEDS ORDERED: Heparin 25,000units in D5W 25,000 UNITS/250 ML BAG IV SCH ×2 (14:45→17:00)
[2017-06-06] MEDS ORDERED: Nitroglycerin 2% Ointment Foilpak UD TOP STA (14:56)
[2017-06-06] MEDS ORDERED: Nitroglycerin 2% Ointment Foilpak UD TOP ONE (15:28)
--- NOTE | 2017-06-06 15:31 | CP.PCM.CON ---
History of Present Illness - History of Present Illness History of Present Illness: Contacted by Dr Corona regarding patient who has a history of CAD s/p PCI, HTN, who has unstable angina. troponin was elevated. I attempted transfer for cardiac cath today, however patient refused. Further management per Dr Corona and Dr. House. Past Patient History - Infectious Disease Hx of Infectious Diseases: None - Tetanus Immunizations Tetanus Immunization: Unknown - Past Medical History & Family History Past Medical History?: Yes - Past Social History Alcohol: None Drugs: Denies - CARDIAC Hx Cardia Arrhythmia: Yes Hx Congestive Heart Failure: Yes Hx Hypercholesterolemia: Yes Hx Hypertension: Yes - PULMONARY Hx Asthma: Yes Hx Bronchitis: No Hx Chronic Obstructive Pulmonary Disease (COPD): Yes Hx Emphysema: Yes - NEUROLOGICAL Hx Multiple Sclerosis: Yes Hx Transient Ischemic Attacks (TIA): Yes - HEENT Hx HEENT Problems: Yes - RENAL Hx Chronic Kidney Disease: No - ENDOCRINE/METABOLIC Hx Endocrine Disorders: Yes Hx Diabetes Mellitus Type 2: Yes - HEMATOLOGICAL/ONCOLOGICAL Hx Human Immunodeficiency Virus (HIV): No - INTEGUMENTARY Hx Dermatological Problems: No - MUSCULOSKELETAL/RHEUMATOLOGICAL Hx Fractures: Yes (b/l feet) - GASTROINTESTINAL Hx Gastrointestinal Disorders: No - GENITOURINARY/GYNECOLOGICAL Hx Genitourinary Disorders: No - PSYCHIATRIC Hx Anxiety: Yes Hx Depression: No - SURGICAL HISTORY Hx Cholecystectomy: Yes Hx Coronary Artery Bypass Graft: No Hx Coronary Stent: Yes (x3) - ANESTHESIA Hx Anesthesia: Yes Hx Anesthesia Reactions: No Hx Malignant Hyperthermia: No Meds Allergies/Adverse Reactions: Allergies Allergy/AdvReac Type Severity Reaction Status Date / Time ampicillin Allergy ANAPHYLAXIS Verified 03/17/17 11:28 codeine AdvReac HEADACHE Verified 03/17/17 11:28 - Medications Medications: Current Medications Aspirin (Ecotrin) 81 mg PO DAILY [facility] Carvedilol (Coreg) 3.125 mg PO DAILY [facility] Clopidogrel Bisulfate (Plavix) 75 mg PO DAILY [facility] Heparin Sodium/Dextrose (Heparin 25,000 Units/250ml In D5w) 25,000 units in 250 mls @ 0 mls/hr IV .Q0M [facility]; Per Protocol PRN Reason: Protocol Insulin Human Lispro (Humalog) 0 units SC ACHS [facility] PRN Reason: Protocol Sertraline HCl (Zoloft) 50 mg PO DAILY [facility] Tamsulosin HCl (Flomax) 0.4 mg PO DAILY [facility] Results - Vital Signs Recent Vital Signs: Last Vital Signs Temp 97 F L 06/06/17 14:02 Pulse 80 06/06/17 14:27 Resp 17 06/06/17 14:02 BP 117/58 L 06/06/17 14:02 Pulse Ox 98 06/06/17 14:27 - Labs Result Diagrams: 06/06/17 10:53 06/06/17 10:53 Labs: Laboratory Results - last 24 hr 06/06/17 06/06/17 06/06/17 10:53 10:53 14:04 WBC 9.2 RBC 4.00 L Hgb 12.8 Hct 37.9 MCV 94.7 H MCH 32.1 H MCHC 33.9 RDW 13.9 Plt Count 220 MPV 8.8 Neut % (Auto) 71.5 Lymph % (Auto) 17.2 L [place] % (Auto) 8.8 Eos % (Auto) 1.2 Baso % (Auto) 1.3 Neut # 6.6 Lymph # 1.6 [place] # 0.8 Eos # 0.1 Baso # 0.1 Sodium 135 Potassium 4.0 Chloride 103 Carbon Dioxide 21 L Anion Gap 15 BUN 10 Creatinine 0.9 Est GFR ( Amer) > 60 Est GFR (Non-Af Amer) > 60 Random Glucose 140 H Calcium 8.9 Total Bilirubin 0.8 AST 17 D ALT 19 L Alkaline Phosphatase 69 Troponin I 0.8840 H* NT-Pro-B Natriuret Pep 27835 H Total Protein 7.2 Albumin 3.9 Globulin 3.3 Albumin/Globulin Ratio 1.2
--- NOTE | 2017-06-06 16:27 | CP.PCM.HP ---
<Lakia Mcdermott - Last Filed: 06/06/17 17:38> History of Present Illness - History of Present Illness History of Present Illness: 71 year old male with PMHx anxiety, asthma, CAD, cardiac arrythmia, CHF, COPD, CVA, DM, Emphysema, HTN, Hypercholesterolemia, Hyperlipidemia, Multiple Sclerosis, TIA seen in ED for chest pain that he says began last night. Patient states that the pain radiated to both his back and down his right arm. He states that he has consistently been having this chest pain on and off for several weeks now and says that the pain manifests as moderate to severe in nature and sometimes feels more like a pressure than a pain. He also states that when he experiences this chest pain it is commonly associated with dyspnea and diaphoresis. He denies any malaise or palpitations and states that his chest pain is still present while in the ED. Patient denies any further complaints at this time. Denies N/V/F/C/posterior calf pain/urinary retention or constipation. Troponin levels came back at 0.88 and EKG showed concern for worsening ischemic changes. Spoke with Dr. Wood who wanted patient to be sent immediately to [facility] for a cardiac catheterization. Patient refused to have the catheterization done stating that it was too short of notice and he didn't like being rushed into decisions such as this one. Dr. House then spoke to the patient on the phone and informed him of the severity of his situation and let the patient know that the catheterization procedure would be in his best interest. The patient still refused. It was reiterated very clearly to the patient for a third time that he was currently in the middle of a heart attack and that at any moment he could go into sudden cardiac arrest and . Patient stated that he understood and still chose to refuse the cardiac catheterization procedure. Patient to be admitted to Telemetry for continued care. Patient is hemodynamically stable and NAD at this time Meds: As below All: Ampicillin, codeine PSH: Cholecystectomy, Coronary Stent (x3) FH: Unremarkable SH: current smoker- 6-8 cigarettes a day, denies alcohol use or illicit drug use Present on Admission - Present on Admission Any Indicators Present on Admission: No Review of Systems - Review of Systems Review of Systems: ROS as per HPI. All other systems reviewed and found to be negative Past Patient History - Infectious Disease Hx of Infectious Diseases: None - Tetanus Immunizations Tetanus Immunization: Unknown - Past Medical History & Family History Past Medical History?: Yes - Past Social History Alcohol: None Drugs: Denies - CARDIAC Hx Cardia Arrhythmia: Yes Hx Congestive Heart Failure: Yes Hx Hypercholesterolemia: Yes Hx Hypertension: Yes - PULMONARY Hx Asthma: Yes Hx Bronchitis: No Hx Chronic Obstructive Pulmonary Disease (COPD): Yes Hx Emphysema: Yes - NEUROLOGICAL Hx Multiple Sclerosis: Yes Hx Transient Ischemic Attacks (TIA): Yes - HEENT Hx HEENT Problems: Yes - RENAL Hx Chronic Kidney Disease: No - ENDOCRINE/METABOLIC Hx Endocrine Disorders: Yes Hx Diabetes Mellitus Type 2: Yes - HEMATOLOGICAL/ONCOLOGICAL Hx Human Immunodeficiency Virus (HIV): No - INTEGUMENTARY Hx Dermatological Problems: No - MUSCULOSKELETAL/RHEUMATOLOGICAL Hx Fractures: Yes (b/l feet) - GASTROINTESTINAL Hx Gastrointestinal Disorders: No - GENITOURINARY/GYNECOLOGICAL Hx Genitourinary Disorders: No - PSYCHIATRIC Hx Anxiety: Yes Hx Depression: No - SURGICAL HISTORY Hx Cholecystectomy: Yes Hx Coronary Artery Bypass Graft: No Hx Coronary Stent: Yes (x3) - ANESTHESIA Hx Anesthesia: Yes Hx Anesthesia Reactions: No Hx Malignant Hyperthermia: No Meds Allergies/Adverse Reactions: Allergies Allergy/AdvReac Type Severity Reaction Status Date / Time ampicillin Allergy ANAPHYLAXIS Verified 03/17/17 11:28 codeine AdvReac HEADACHE Verified 03/17/17 11:28 Physical Exam - Constitutional Appears: Well, Non-toxic, No Acute Distress - Head Exam Head Exam: ATRAUMATIC, NORMOCEPHALIC - Eye Exam Eye Exam: EOMI, PERRL Pupil Exam: PERRL - ENT Exam ENT Exam: Mucous Membranes Moist - Neck Exam Neck exam: Positive for: Normal Inspection. Negative for: Tenderness - Respiratory Exam Respiratory Exam: Clear to Auscultation Bilateral - Cardiovascular Exam Cardiovascular Exam: Tachycardia, Irregular Rhythm. absent: REGULAR RHYTHM - Rectal Exam Rectal Exam: Deferred - Neurological Exam Neurological exam: Alert, Oriented x3 - Psychiatric Exam Psychiatric exam: Normal Affect, Normal Mood - Skin Skin Exam: Intact, Normal Color, Warm Results - Vital Signs Recent Vital Signs: Last Vital Signs Temp 96.8 F L 06/06/17 16:08 Pulse 90 06/06/17 16:08 Resp 18 06/06/17 16:08 BP 115/71 06/06/17 16:08 Pulse Ox 98 06/06/17 16:08 - Labs Result Diagrams: 06/06/17 10:53 06/06/17 10:53 Labs: Laboratory Results - last 24 hr 06/06/17 06/06/17 06/06/17 10:53 10:53 14:04 WBC 9.2 RBC 4.00 L Hgb 12.8 Hct 37.9 MCV 94.7 H MCH 32.1 H MCHC 33.9 RDW 13.9 Plt Count 220 MPV 8.8 Neut % (Auto) 71.5 Lymph % (Auto) 17.2 L [place] % (Auto) 8.8 Eos % (Auto) 1.2 Baso % (Auto) 1.3 Neut # 6.6 Lymph # 1.6 [place] # 0.8 Eos # 0.1 Baso # 0.1 Sodium 135 Potassium 4.0 Chloride 103 Carbon Dioxide 21 L Anion Gap 15 BUN 10 Creatinine 0.9 Est GFR ( Amer) > 60 Est GFR (Non-Af Amer) > 60 POC Glucose (mg/dL) Random Glucose 140 H Calcium 8.9 Total Bilirubin 0.8 AST 17 D ALT 19 L Alkaline Phosphatase 69 Troponin I 0.8840 H* NT-Pro-B Natriuret Pep 15913 H Total Protein 7.2 Albumin 3.9 Globulin 3.3 Albumin/Globulin Ratio 1.2 06/06/17 15:36 WBC RBC Hgb Hct MCV MCH MCHC RDW Plt Count MPV Neut % (Auto) Lymph % (Auto) [place] % (Auto) Eos % (Auto) Baso % (Auto) Neut # Lymph # [place] # Eos # Baso # Sodium Potassium Chloride Carbon Dioxide Anion Gap BUN Creatinine Est GFR ( Amer) Est GFR (Non-Af Amer) POC Glucose (mg/dL) 124 H Random Glucose Calcium Total Bilirubin AST ALT Alkaline Phosphatase Troponin I NT-Pro-B Natriuret Pep Total Protein Albumin Globulin Albumin/Globulin Ratio Assessment & Plan - Assessment and Plan (Free Text) Assessment: 71 year old male seen in ED for NSTEMI Plan: 1. NSTEMI - EKG shows NSTEMI with possible worsening ischemic changes compared to prior - Troponin levels 0.8840 on arrival to ED; f/u repeat troponin levels - BNP 63519 - Aspirin 81 mg PO qd - Coreg 3.125 mg PO qd - Plavix 75 mg PO qd - Heparin 2500U IV - Nitro paste topical to chest - PT, PTT, INR taken - CXR: No active disease. No significant interval change compared to previous studies - F/u BMP - Cardiology consults placed: Dr. Wood, Dr. House - F/u echocardiogram - [place] healthy diet - Vital signs qshift 2. DM - Humalog ACHS - Accucheck - Date & Time Date: 06/06/17 Time: 16:50 <Lana oCrona - Last Filed: 06/07/17 15:33> Results - Vital Signs Recent Vital Signs: Last Vital Signs Temp 98.1 F 06/07/17 13:00 Pulse 78 06/07/17 13:00 Resp 20 06/07/17 13:00 BP 118/78 06/07/17 13:00 Pulse Ox 98 06/07/17 13:00 - Labs Result Diagrams: 06/06/17 10:53 06/07/17 04:45 Labs: Laboratory Results - last 24 hr 06/06/17 06/06/17 06/06/17 15:36 16:20 18:44 PT 16.4 H INR 1.5 H APTT 36.7 Sodium Potassium Chloride Carbon Dioxide Anion Gap BUN Creatinine Est GFR ( Amer) Est GFR (Non-Af Amer) POC Glucose (mg/dL) 124 H Random Glucose Calcium Troponin I 1.0300 H* Triglycerides Cholesterol LDL Cholesterol Direct HDL Cholesterol TSH 3rd Generation 06/06/17 06/06/17 06/06/17 22:38 23:10 23:10 PT 16.9 H INR 1.5 H APTT 55.8 H D Sodium Potassium Chloride Carbon Dioxide Anion Gap BUN Creatinine Est GFR ( Amer) Est GFR (Non-Af Amer) POC Glucose (mg/dL) 145 H Random Glucose Calcium Troponin I 0.9510 H* Triglycerides Cholesterol LDL Cholesterol Direct HDL Cholesterol TSH 3rd Generation 06/07/17 06/07/17 06/07/17 04:45 04:45 05:48 PT INR APTT 55.3 H Sodium 138 Potassium 4.3 Chloride 103 Carbon Dioxide 28 Anion Gap 11 BUN 12 Creatinine 0.9 Est GFR ( Amer) > 60 Est GFR (Non-Af Amer) > 60 POC Glucose (mg/dL) 85 Random Glucose 101 Calcium 8.8 Troponin I Triglycerides 118 D Cholesterol 150 LDL Cholesterol Direct 110 HDL Cholesterol 21 L TSH 3rd Generation 2.68 06/07/17 11:23 PT INR APTT Sodium Potassium Chloride Carbon Dioxide Anion Gap BUN Creatinine Est GFR ( Amer) Est GFR (Non-Af Amer) POC Glucose (mg/dL) 101 Random Glucose Calcium Troponin I Triglycerides Cholesterol LDL Cholesterol Direct HDL Cholesterol TSH 3rd Generation Attending/Attestation - Attestation I have personally seen and examined this patient.: Yes I have fully participated in the care of the patient.: Yes I have reviewed all pertinent clinical information: Yes Notes (Text): SEEN EXAMINED DISCUSSED WITH RESIDENT DR LAKIA MCDERMOTT. ALL RISKS OF REFUSING CARDIAC CATH EXPLAINED TO PATIENT IN GREAT DETAIL ALL BENEFITS ALSO EXPLAINED IN GREAT DETAIL DISCUSSED WITH BOTH DRS. WOOD AND ADAN WE WILL MANAGE MEDICALLY HD STABLE NAD
[2017-06-06] MEDS: Insulin Lispro (humaLOG) 100 Units/ml Inj SC SCH ×2 (16:41→22:00)
[2017-06-06 17:00] LABS: PARTIAL THROMBOPLASTIN TIME 36.7 Seconds (25.6-37.1)
--- NOTE | 2017-06-06 19:52 | CP.PCM.CON ---
History of Present Illness - History of Present Illness History of Present Illness: THE PATIENT IS A 71 YEAR OLD MALE WITH MANY MEDICAL PROBLEMS INCLUDING CAD, HYPERTENSION, HYPERLIPIDEMIA, COPD, AN OLD CVA, MS AND DM. HE HAD AN ACUTE ANTERIOR WALL IA IN 2011 AND PRESENTED TO THE ER AT [facility] IN 2011 AND A CODE HEART WAS CALLED AND HE WAS SENT TO [place] WHERE AN EMERGENCY CARDIAC CATH WAS PERFORMED AND HE HAD A STENT INSERTED IN HIS LAD CORONARY ARTERY. THE PATIENT HAS BEEN RESISTANT TO CONTINUOUS RECOMMENDATIONS TO DO A PHARMACOLOGICAL STRESS TEST DESPITE MULTIPLE ADMISSIONS SINCE 2011 FOR CHEST PAIN FLATLY STATING HE JUST DIDN'T WANT TO DO ONE. HE NOW STATES THAT HE DEVELOPED CHEST PAIN WITH RADIATION TO THE RIGHT ARM SINCE LAST NIGHT AND HE CAME TO THE ER TODAY WITH CONTINUED CHEST PAIN AND AN ELEVATED TROPONIN AND EKG CHANGES. HE WAS TOLD HE WAS HAVING A MYOCARDIAL INFARCTION AND SHOULD HAVE AN IMMEDIATE CARDIAC CATHETERIZATION AND DR WOOD WAS CALLED AND HE AGREED TO PERFORM IT URGENTLY AND HE REFUSED. I SPOKE TO HIM AND TOLD HIM HE SHOULD GO IMMEDIATELY FOR A CARDIAC CATH AND CORONARY INTERVENTION TO TRY TO MINIMIZE MYOCARDIAL DAMAGE TIME IS MYOCARDIUM AND THAT THERE SHOULD BE NO DELAY BUT HE ABSOLUTELY REFUSED. HE WAS THEREFORE ADMITTED TO ON TELEMETRY AND WOULD BE GIVEN MEDICAL TREATMENT THAT WAS STARTED IN THE ER. Past Patient History - Infectious Disease Hx of Infectious Diseases: None - Tetanus Immunizations Tetanus Immunization: Unknown - Past Medical History & Family History Past Medical History?: Yes - Past Social History Smoking Status: Current Some Days Smoker - CARDIAC Hx Cardiac Disorders: Yes Hx Cardia Arrhythmia: Yes Hx Congestive Heart Failure: Yes Hx Hypercholesterolemia: Yes Hx Hypertension: Yes - PULMONARY Hx Respiratory Disorders: Yes Hx Asthma: Yes Hx Bronchitis: No Hx Chronic Obstructive Pulmonary Disease (COPD): Yes Hx Emphysema: Yes - NEUROLOGICAL Hx Neurological Disorder: Yes Hx Multiple Sclerosis: Yes Hx Transient Ischemic Attacks (TIA): Yes - HEENT Hx HEENT Problems: Yes - RENAL Hx Chronic Kidney Disease: No - ENDOCRINE/METABOLIC Hx Endocrine Disorders: Yes Hx Diabetes Mellitus Type 2: Yes - HEMATOLOGICAL/ONCOLOGICAL Hx Blood Disorders: No Hx Blood Transfusions: No Hx Human Immunodeficiency Virus (HIV): No - INTEGUMENTARY Hx Dermatological Problems: No - MUSCULOSKELETAL/RHEUMATOLOGICAL Hx Musculoskeletal Disorders: Yes Hx Falls: No Hx Fractures: Yes (b/l feet) - GASTROINTESTINAL Hx Gastrointestinal Disorders: No - GENITOURINARY/GYNECOLOGICAL Hx Genitourinary Disorders: No - PSYCHIATRIC Hx Psychophysiologic Disorder: Yes Hx Anxiety: Yes Hx Depression: No Hx Substance Use: No - SURGICAL HISTORY Hx Surgeries: Yes Hx Cholecystectomy: Yes Hx Coronary Artery Bypass Graft: No Hx Coronary Stent: Yes (x3) - ANESTHESIA Hx Anesthesia: Yes Hx Anesthesia Reactions: No Hx Malignant Hyperthermia: No Meds Allergies/Adverse Reactions: Allergies Allergy/AdvReac Type Severity Reaction Status Date / Time ampicillin Allergy ANAPHYLAXIS Verified 03/17/17 11:28 codeine AdvReac HEADACHE Verified 03/17/17 11:28 - Medications Medications: Current Medications Acetaminophen (Tylenol 325mg Tab) 650 mg PO Q6 PRN PRN Reason: Fever >100.4 F Aspirin (Ecotrin) 81 mg PO DAILY [facility] Carvedilol (Coreg) 3.125 mg PO DAILY [facility] Clopidogrel Bisulfate (Plavix) 75 mg PO DAILY [facility] Heparin Sodium/Dextrose (Heparin 25,000 Units/250ml In D5w) 25,000 units in 250 mls @ 8 mls/hr IV .Q24H [facility] PRN Reason: Protocol Last Admin: 06/06/17 17:34 Dose: 8 mls/hr Insulin Human Lispro (Humalog) 0 units SC ACHS [facility] PRN Reason: Protocol Last Admin: 06/06/17 16:41 Dose: Not Given Ondansetron HCl (Zofran Inj) 4 mg IVP Q6 PRN PRN Reason: Nausea/Vomiting Sertraline HCl (Zoloft) 50 mg PO DAILY [facility] Tamsulosin HCl (Flomax) 0.4 mg PO DAILY [facility] Physical Exam - Respiratory Exam Respiratory Exam: Clear to Auscultation Bilateral - Cardiovascular Exam Cardiovascular Exam: REGULAR RHYTHM, +S1, +S2 - Extremities Exam Additional comments: NO LE EDEMA - Additional Findings Additional findings: EKG SINUS, RBBB, OLD AWMI, 1-[address] SEGMENT DEPRESSIONS AND DEEP T WAVE INVERSIONS IN LEADS V4, V5 AND V6 WELL T WAVE INVERSIONS IN LEADS I AND L TROPONIN # 1 0.88 Results - Vital Signs Recent Vital Signs: Last Vital Signs Temp 97.5 F L 06/06/17 18:16 Pulse 68 06/06/17 19:00 Resp 16 06/06/17 19:00 BP 124/71 06/06/17 18:16 Pulse Ox 97 06/06/17 19:00 - Labs Result Diagrams: 06/06/17 10:53 06/06/17 10:53 Labs: Laboratory Results - last 24 hr 06/06/17 06/06/17 06/06/17 10:53 10:53 14:04 WBC 9.2 RBC 4.00 L Hgb 12.8 Hct 37.9 MCV 94.7 H MCH 32.1 H MCHC 33.9 RDW 13.9 Plt Count 220 MPV 8.8 Neut % (Auto) 71.5 Lymph % (Auto) 17.2 L Victoria % (Auto) 8.8 Eos % (Auto) 1.2 Baso % (Auto) 1.3 Neut # 6.6 Lymph # 1.6 Victoria # 0.8 Eos # 0.1 Baso # 0.1 PT INR APTT Sodium 135 Potassium 4.0 Chloride 103 Carbon Dioxide 21 L Anion Gap 15 BUN 10 Creatinine 0.9 Est GFR ( Amer) > 60 Est GFR (Non-Af Amer) > 60 POC Glucose (mg/dL) Random Glucose 140 H Calcium 8.9 Total Bilirubin 0.8 AST 17 D ALT 19 L Alkaline Phosphatase 69 Troponin I 0.8840 H* NT-Pro-B Natriuret Pep 20953 H Total Protein 7.2 Albumin 3.9 Globulin 3.3 Albumin/Globulin Ratio 1.2 06/06/17 06/06/17 06/06/17 15:36 16:20 18:44 WBC RBC Hgb Hct MCV MCH MCHC RDW Plt Count MPV Neut % (Auto) Lymph % (Auto) Victoria % (Auto) Eos % (Auto) Baso % (Auto) Neut # Lymph # Victoria # Eos # Baso # PT 16.4 H INR 1.5 H APTT 36.7 Sodium Potassium Chloride Carbon Dioxide Anion Gap BUN Creatinine Est GFR ( Amer) Est GFR (Non-Af Amer) POC Glucose (mg/dL) 124 H Random Glucose Calcium Total Bilirubin AST ALT Alkaline Phosphatase Troponin I 1.0300 H* NT-Pro-B Natriuret Pep Total Protein Albumin Globulin Albumin/Globulin Ratio Assessment & Plan - Assessment and Plan (Free Text) Assessment: ACUTE NSTEMI IN PATIENT WITH KNOWN CAD WITH OLD AWMI WITH CORONARY STENT INSERTION HYPERTENSION HYPERLIPIDEMIA DM Plan: THE PATIENT WAS ADMITTED TO ON TELEMETRY O2, ASPIRIN, PLAVIX, IV HEPARIN, CARVEDILOL, NITRATES, ATORVASTATIN SERIEAL EKGS AND CARDIAC ENZYMES, ECHOCARDIOGRAM THE PATIENT REFUSED AN EMERGENCY CARDIAC CATH FOR CORONARY INTERVENTION
[2017-06-06] MEDS: Nitroglycerin 2% Ointment Foilpak UD TOP SCH (21:31)
[2017-06-06 23:34] LABS: PARTIAL THROMBOPLASTIN TIME 55.8 Seconds (25.6-37.1)
[2017-06-07] MEDS: Nitroglycerin 2% Ointment Foilpak UD TOP SCH ×4 (04:54→21:14)
[2017-06-07 06:26] LABS: BLOOD UREA NITROGEN 12 mg/dl (9-20); CALCIUM 8.8 mg/dL (8.4-10.2); CARBON DIOXIDE 28 mmol/L (22-30); CHLORIDE 103 mmol/L (98-107); CHOLESTEROL 150 mg/dL (0-199); GFR AFRICAN-AMERICAN > 60; GLUCOSE,RANDOM 101 mg/dL (75-110); POTASSIUM 4.3 MMOL/L (3.6-5.0); SODIUM 138 mmol/l (132-148)
[2017-06-07] MEDS: Insulin Lispro (humaLOG) 100 Units/ml Inj SC SCH ×4 (06:33→21:11)
[2017-06-07 06:48] LABS: THYROID STIMULATING HORMONE 2.68 mIU/ML (0.46-4.68)
--- NOTE | 2017-06-07 08:18 | CP.PCM.PN ---
Subjective - Date & Time of Evaluation Date of Evaluation: 06/07/17 Time of Evaluation: 07:30 - Subjective Subjective: CHEST PAIN FREE SINCE LAST NIGHT NO SOB Objective - Vital Signs/Intake and Output Vital Signs (last 24 hours): Temp Pulse Resp BP Pulse Ox 98.2 F 68 18 122/79 97 06/07/17 05:34 06/07/17 05:34 06/07/17 05:34 06/07/17 05:34 06/07/17 05:34 Intake and Output: 06/07/17 06/07/17 06:59 18:59 Intake Total 496 Output Total 700 Balance -204 - Medications Medications: Current Medications Acetaminophen (Tylenol 325mg Tab) 650 mg PO Q6 PRN PRN Reason: Fever >100.4 F Aspirin (Ecotrin) 81 mg PO DAILY [facility] Atorvastatin Calcium (Lipitor) 40 mg PO DAILY [facility] Last Admin: 06/06/17 21:32 Dose: 40 mg Carvedilol (Coreg) 3.125 mg PO DAILY [facility] Clopidogrel Bisulfate (Plavix) 75 mg PO DAILY [facility] Heparin Sodium/Dextrose (Heparin 25,000 Units/250ml In D5w) 25,000 units in 250 mls @ 8 mls/hr IV .Q24H [facility] PRN Reason: Protocol Last Admin: 06/06/17 17:34 Dose: 8 mls/hr Insulin Human Lispro (Humalog) 0 units SC ACHS [facility] PRN Reason: Protocol Last Admin: 06/07/17 06:33 Dose: Not Given Nitroglycerin (Nitro-Bid 2% Oint) 0.5 ea TOP Q6 [facility] Last Admin: 06/07/17 04:54 Dose: 0.5 ea Ondansetron HCl (Zofran Inj) 4 mg IVP Q6 PRN PRN Reason: Nausea/Vomiting Sertraline HCl (Zoloft) 50 mg PO DAILY [facility] Tamsulosin HCl (Flomax) 0.4 mg PO DAILY [facility] - Labs Labs: 06/06/17 10:53 06/07/17 04:45 PT 16.9 Seconds (9.8-13.1) H 06/06/17 23:10 INR 1.5 (0.9-1.2) H 06/06/17 23:10 APTT 55.3 Seconds (25.6-37.1) H 06/07/17 04:45 - Respiratory Exam Respiratory Exam: Clear to Ausculation Bilateral - Cardiovascular Exam Cardiovascular Exam: REGULAR RHYTHM, +S1, +S2 - Extremities Exam Extremities Exam: Normal Inspection - Additional Findings Additional findings: TODAY'S EKG PENDING TROPONIN #2 1.03 TROPONIN #3 0.95 Assessment and Plan - Assessment and Plan (Free Text) Assessment: NSTEMI-CHEST PAIN FREE NOW HYPERTENSION HYPERLIPIDEMIA Plan: CONTINUE ASPIRIN, CLOPIDOGREL, HEPARIN, CARVEDILOL, ATORVASTATIN, NITRATES EKG AND ECHO PENDING
[2017-06-07] MEDS ORDERED: Perflutren Lipid Microsphere 1.5 ML SUS IV ONE (09:21)
--- NOTE | 2017-06-07 09:42 | CP.PCM.PN ---
<Huey Iqbal - Last Filed: 06/07/17 17:16> Subjective - Date & Time of Evaluation Date of Evaluation: 06/07/17 Time of Evaluation: 09:40 - Subjective Subjective: 71 year old male with PMHx anxiety, asthma, CAD, cardiac arrythmia, CHF, COPD, CVA, DM, Emphysema, HTN, Hypercholesterolemia, Hyperlipidemia, Multiple Sclerosis, TIA seen at bedside after being admitted to hospital for severe chest pain with radiation to back and right arm on 06/06/17. Patient is AAO x 3 and NAD resting comfortably in bed. He denies any chest pain or shortness of breath today. Pt continues to refuse cardiac catheterization at this time. Denies any further complaints or any acute overnight events and says his appetite is good. Denies N/V/F/C/CP/SOB/posterior calf pain/urinary retention/ constipation. Objective - Vital Signs/Intake and Output Vital Signs (last 24 hours): Temp Pulse Resp BP Pulse Ox 98.1 F 71 20 104/68 97 06/07/17 08:00 06/07/17 08:00 06/07/17 08:00 06/07/17 08:00 06/07/17 08:00 Intake and Output: 06/07/17 06/07/17 06:59 18:59 Intake Total 496 Output Total 700 Balance -204 - Medications Medications: Current Medications Acetaminophen (Tylenol 325mg Tab) 650 mg PO Q6 PRN PRN Reason: Fever >100.4 F Aspirin (Ecotrin) 81 mg PO DAILY [facility] Atorvastatin Calcium (Lipitor) 40 mg PO DAILY [facility] Last Admin: 06/06/17 21:32 Dose: 40 mg Carvedilol (Coreg) 3.125 mg PO DAILY [facility] Clopidogrel Bisulfate (Plavix) 75 mg PO DAILY [facility] Heparin Sodium/Dextrose (Heparin 25,000 Units/250ml In D5w) 25,000 units in 250 mls @ 8 mls/hr IV .Q24H [facility] PRN Reason: Protocol Last Admin: 06/06/17 17:34 Dose: 8 mls/hr Insulin Human Lispro (Humalog) 0 units SC ACHS [facility] PRN Reason: Protocol Last Admin: 06/07/17 06:33 Dose: Not Given Nitroglycerin (Nitro-Bid 2% Oint) 0.5 ea TOP Q6 [facility] Last Admin: 06/07/17 04:54 Dose: 0.5 ea Ondansetron HCl (Zofran Inj) 4 mg IVP Q6 PRN PRN Reason: Nausea/Vomiting Sertraline HCl (Zoloft) 50 mg PO DAILY [facility] Tamsulosin HCl (Flomax) 0.4 mg PO DAILY [facility] - Labs Labs: 06/06/17 10:53 06/07/17 04:45 PT 16.9 Seconds (9.8-13.1) H 06/06/17 23:10 INR 1.5 (0.9-1.2) H 06/06/17 23:10 APTT 55.3 Seconds (25.6-37.1) H 06/07/17 04:45 - Constitutional Appears: Well, Non-toxic, No Acute Distress - Head Exam Head Exam: ATRAUMATIC, NORMOCEPHALIC - Neurological Exam Neurological Exam: Alert, Awake, Oriented x3 - Psychiatric Exam Psychiatric exam: Normal Affect, Normal Mood Assessment and Plan - Assessment and Plan (Free Text) Assessment: 71 year old male with PMHx anxiety, asthma, CAD, cardiac arrythmia, CHF, COPD, CVA, DM, Emphysema, HTN, Hypercholesterolemia, Hyperlipidemia, Multiple Sclerosis, TIA admitted from ED on 06/06/17 for chest pain that he says began the previous night. Patient states that the pain radiated to both his back and down his right arm. He states that he has consistently been having this chest pain on and off for several weeks now and says that the pain manifests as moderate to severe in nature and sometimes feels more like a pressure than a pain. He also states that when he experiences this chest pain it is commonly associated with dyspnea and diaphoresis. He denies any malaise or palpitations. Troponin levels 0.88 on admission and 0.951 now. On admission EKG showed concern for worsening ischemic changes. Dr. Quijano and Dr. House wanted patient to be sent immediately to [facility] for a cardiac catheterization from ED. Patient refused to have the catheterization done. Patient hemodynamically stable. Patient for echocardiogram today. Patient continues to refuse cardiac catheterization at this time. Plan: 1. NSTEMI - EKG 06/06/17 shows NSTEMI with possible worsening ischemic changes compared to prior - Cardiology following: Dr. Quijano, Dr. House - Aspirin 81 mg PO qd - Coreg 3.125 mg PO qd - Plavix 75 mg PO qd - Heparin 2500U IV - Nitro paste topical to chest - PT, PTT, INR: 16.9/1.5/55.3 - Troponin levels 0.8840 on arrival to ED; peaked at 1.03 last night; currently 0.951, f/u new results - Echocardiogram: Left ventricle mildly dilated with normal wall thickness. Systolic function is severely impaired. Thin aneurysmal and dyskinetic apex. No LV thrombus noted. Mitral regurgitation is moderate. - CXR: No active disease. No significant interval change compared to previous studies - EKG: NSR, L anterior fascicular block, L ventricular hypertrophy with QRS widening and repolarization abnormality. Anteroseptal infarct - O2 with nasal canula - Vital signs qshift - Discussed with patient and patient still refusing cardiac catheterization at this time - Per Dr. House patient to be DC home tomorrow. Will follow up with him outpatient for stress test - Continue Heparin drip as outpatient 2. DM - Humalog ACHS - Glucose 101 - [place] healthy diet - Accucheck <Lana Corona - Last Filed: 06/08/17 15:24> Objective - Vital Signs/Intake and Output Vital Signs (last 24 hours): Temp Pulse Resp BP Pulse Ox 97.2 F L 68 14 110/70 96 06/08/17 12:26 06/08/17 12:26 06/08/17 12:26 06/08/17 12:26 06/08/17 12:26 - Medications Medications: Current Medications Acetaminophen (Tylenol 325mg Tab) 650 mg PO Q6 PRN PRN Reason: Fever >100.4 F Aspirin (Ecotrin) 81 mg PO DAILY [facility] Last Admin: 06/08/17 09:18 Dose: 81 mg Atorvastatin Calcium (Lipitor) 40 mg PO DAILY [facility] Last Admin: 06/08/17 09:18 Dose: 40 mg Carvedilol (Coreg) 3.125 mg PO DAILY [facility] Last Admin: 06/08/17 09:17 Dose: 3.125 mg Clopidogrel Bisulfate (Plavix) 75 mg PO DAILY [facility] Last Admin: 06/08/17 09:19 Dose: 75 mg Heparin Sodium/Dextrose (Heparin 25,000 Units/250ml In D5w) 25,000 units in 250 mls @ 8 mls/hr IV .Q24H [facility] PRN Reason: Protocol Last Admin: 06/08/17 04:30 Dose: 8 mls/hr Insulin Human Lispro (Humalog) 0 units SC ACHS [facility] PRN Reason: Protocol Last Admin: 06/08/17 12:45 Dose: Not Given Nitroglycerin (Nitro-Bid 2% Oint) 0.5 ea TOP Q6 [facility] Last Admin: 06/08/17 09:19 Dose: 0.5 ea Ondansetron HCl (Zofran Inj) 4 mg IVP Q6 PRN PRN Reason: Nausea/Vomiting Sertraline HCl (Zoloft) 50 mg PO DAILY [facility] Last Admin: 06/08/17 09:19 Dose: 50 mg Tamsulosin HCl (Flomax) 0.4 mg PO DAILY [facility] Last Admin: 06/08/17 09:18 Dose: 0.4 mg - Labs Labs: 06/06/17 10:53 06/07/17 04:45 PT 16.9 Seconds (9.8-13.1) H 06/06/17 23:10 INR 1.5 (0.9-1.2) H 06/06/17 23:10 APTT 41.0 Seconds (25.6-37.1) H D 06/08/17 06:54 Attending/Attestation - Attestation I have personally seen and examined this patient.: Yes I have fully participated in the care of the patient.: Yes I have reviewed all pertinent clinical information, including history, physical exam and plan: Yes Notes (Text): 06/08/17 15:24 seen discussed examined with resident Dr. Huey Iqbal and agree with findings and plan as above.
--- NOTE | 2017-06-07 14:18 | CARD ---
APPROVED REPORT EXAM: Two-dimensional and M-mode echocardiogram with Doppler, color Doppler with contrast. Other Information Quality : GoodRhythm : NSR INDICATION Chest Pain Echo Enhancing Agent Indication: Endocardial border delineation Agent/Amount Used: Definity 2D DIMENSIONS IVSd1.19 (0.7-1.1cm)LVDd5.53 (3.9-5.9cm) LVOT Diameter2.85 (1.8-2.4cm)PWd1.04 (0.7-1.1cm) IVSs0.76 (0.8-1.2cm)LVDs6.65 (2.5-4.0cm) FS (%) 20.3 %PWs0.73 (0.8-1.2cm) LVEF (%)15.0 (>50%) M-Mode DIMENSIONS Left Atrium (MM)4.90 (2.5-4.0cm)IVSd0.60 (0.7-1.1cm) Aortic Root3.21 (2.2-3.7cm)LVDd8.40 (4.0-5.6cm) Aortic Cusp Exc.2.18 (1.5-2.0cm)PWd0.86 (0.7-1.1cm) IVSs0.86 cmFS (%) 17 % LVDs7.01 (2.0-3.8cm)PWs1.16 cm Mitral Valve MV E Ieysjafz25.8cm/sMV DECEL [id number] A Mavwllgk30.8cm/s MV GLO20qwI/A ratio1.5MVA (PHT)4.26cm2 TDI Lateral E' Peak V4.24cm/sMedial E' Peak V6.68cm/sE/Lateral E'18.1 E/Medial E'11.5 LEFT VENTRICLE The Left Ventricle is mildly dilated. There is normal left ventricular wall thickness. The systolic function is severely impaired. Thin, Aneurysmal and dyskinetic [place] The left ventricular diastolic function is normal. No left ventricle thrombus noted on this study. RIGHT VENTRICLE The right ventricle is normal size. There is normal right ventricular wall thickness. The right ventricular systolic function is normal. ATRIA The left atrium is moderately dilated. The right atrium size is normal. AORTIC VALVE The aortic valve is normal in structure. No aortic regurgitation is present. There is no aortic valvular stenosis. MITRAL VALVE The mitral valve is mildly thickened. There is no mitral valve stenosis. Mitral regurgitation is moderate. TRICUSPID VALVE The tricuspid valve is normal in structure. There is no tricuspid valve regurgitation noted. PULMONIC VALVE The pulmonary valve is normal in structure. There is no pulmonic valvular regurgitation. GREAT VESSELS The aortic root is normal in size. The IVC was not visualized. PERICARDIAL EFFUSION There is a trace loculated anterior pericardial effusion. <Conclusion> The Left Ventricle is mildly dilated. There is normal left ventricular wall thickness. The systolic function is severely impaired. Thin, Aneurysmal and dyskinetic [place] No left ventricle thrombus noted on this study. Mitral regurgitation is moderate.
--- NOTE | 2017-06-07 15:00 | PQF GENQUE ---
Dr. Maryanne Corona, Please specify the type and acuity of heart failure in your progress notes: VERSUS: CHF hx. only and not a Chronic condition 1. TYPE: Combined systolic and diastolic Diastolic Systolic Other (please specify) Clinically unable to determine Unknown 2. ACUITY: Acute Chronic Acute on chronic Other (please specify) Clinically unable to determine Unknown ER: PMH:CHF H and P: PMH: CHF Pro BNP:[id number] 06/06 CXR: Impression : No active disease. No significant interval change compared to the 06/07: Echo with contrast (TTE): The Left Ventricle is mildly dilated. There is normal left ventricular wall thickness. The systolic function is severely impaired. Thin, Aneurysmal and dyskinetic [place] No left ventricle thrombus noted on this study. See the full report in the EMR Mitral regurgitation is moderate. prior examination(s). coreg This form is a permanent part of the medical record Clarification of your documentation is requested to better reflect the severity of illness and intensity of treatment of your patient. Indicators present [] Specify: [] [] Specify: [] [] Specify: [] [] Specify: [] Location in the medical record that reflects the above clinical findings: [] Treatment Provided: [] PHYSICIAN'S RESPONSE CHRONIC SYSTOLIC DYSFUNCTION Based on your medical judgment of the clinical indicators outlined above please clarify the following: [] Practitioner response [] If unable to determine, please check the box, sign and date. Present On Admission (POA) Indicator: [] Present at the time of admission [] Not present at the time of admission [] Clinically Undetermined In responding to this query, please exercise your independent professional judgment. The fact that a question is asked does not imply that any particular answer is desired or expected. Thank you for your clarification on this documentation. If you have any questions please call. * Thank you, Elmira Mendieta RN ext. #[phone] MTDD
--- NOTE | 2017-06-07 18:34 | CARD ---
APPROVED REPORT EKG Measurement Heart [id number] <Conclusion> Normal sinus rhythm Left anterior fascicular block Consider lateral ischemia Anteroseptal infarct, age undetermined Abnormal ECG
[2017-06-08] MEDS: Nitroglycerin 2% Ointment Foilpak UD TOP SCH ×4 (03:00→21:56)
[2017-06-08] MEDS: Heparin 25,000units in D5W 25,000 UNITS/250 ML BAG IV SCH (04:30)
--- NOTE | 2017-06-08 07:50 | CP.PCM.PN ---
Subjective - Date & Time of Evaluation Date of Evaluation: 06/08/17 Time of Evaluation: 07:49 - Subjective Subjective: pt seen for nstemi no chest pain states he has better circulation in his legs after heparin drip initiated HD stable NAD refusing cardiac cath Objective - Vital Signs/Intake and Output Vital Signs (last 24 hours): Temp Pulse Resp BP Pulse Ox 97.3 F L 62 18 115/68 97 06/08/17 05:11 06/08/17 05:11 06/08/17 05:11 06/08/17 05:11 06/08/17 05:11 - Medications Medications: Current Medications Acetaminophen (Tylenol 325mg Tab) 650 mg PO Q6 PRN PRN Reason: Fever >100.4 F Aspirin (Ecotrin) 81 mg PO DAILY [facility] Last Admin: 06/07/17 09:48 Dose: 81 mg Atorvastatin Calcium (Lipitor) 40 mg PO DAILY [facility] Last Admin: 06/07/17 09:48 Dose: 40 mg Carvedilol (Coreg) 3.125 mg PO DAILY [facility] Last Admin: 06/07/17 09:48 Dose: 3.125 mg Clopidogrel Bisulfate (Plavix) 75 mg PO DAILY [facility] Last Admin: 06/07/17 09:49 Dose: 75 mg Heparin Sodium/Dextrose (Heparin 25,000 Units/250ml In D5w) 25,000 units in 250 mls @ 8 mls/hr IV .Q24H [facility] PRN Reason: Protocol Last Admin: 06/08/17 04:30 Dose: 8 mls/hr Insulin Human Lispro (Humalog) 0 units SC ACHS [facility] PRN Reason: Protocol Last Admin: 06/07/17 21:11 Dose: Not Given Nitroglycerin (Nitro-Bid 2% Oint) 0.5 ea TOP Q6 [facility] Last Admin: 06/08/17 03:00 Dose: 0.5 ea Ondansetron HCl (Zofran Inj) 4 mg IVP Q6 PRN PRN Reason: Nausea/Vomiting Sertraline HCl (Zoloft) 50 mg PO DAILY [facility] Last Admin: 06/07/17 09:49 Dose: 50 mg Tamsulosin HCl (Flomax) 0.4 mg PO DAILY [facility] Last Admin: 06/07/17 09:48 Dose: 0.4 mg - Labs Labs: 06/06/17 10:53 06/07/17 04:45 PT 16.9 Seconds (9.8-13.1) H 06/06/17 23:10 INR 1.5 (0.9-1.2) H 06/06/17 23:10 APTT 41.0 Seconds (25.6-37.1) H D 06/08/17 06:54 - Constitutional Appears: Non-toxic, No Acute Distress - Head Exam Head Exam: ATRAUMATIC, NORMOCEPHALIC - Eye Exam Eye Exam: EOMI, Normal appearance, PERRL Pupil Exam: NORMAL ACCOMODATION, PERRL - ENT Exam ENT Exam: Mucous Membranes Moist, Normal Exam - Neck Exam Neck Exam: Full ROM, Normal Inspection - Respiratory Exam Respiratory Exam: Clear to Ausculation Bilateral, NORMAL BREATHING PATTERN - Cardiovascular Exam Cardiovascular Exam: RRR, +S1, +S2 - GI/Abdominal Exam GI & Abdominal Exam: Soft, Normal Bowel Sounds. absent: Tenderness, Mass - Extremities Exam Extremities Exam: Normal Capillary Refill, Normal Inspection - Back Exam Back Exam: absent: CVA tenderness (L), CVA tenderness (R) - Neurological Exam Neurological Exam: Alert, Oriented x3 - Psychiatric Exam Psychiatric exam: Normal Affect, Normal Mood - Skin Skin Exam: Dry, Warm Assessment and Plan - Assessment and Plan (Free Text) Plan: [place] PMHx anxiety, asthma, CAD, cardiac arrythmia, CHF, COPD, CVA, DM, Emphysema, HTN, Hypercholesterolemia, Hyperlipidemia, Multiple Sclerosis, TIA admitted from ED on 06/06/17 for chest pain that he says began the previous night. Patient states that the pain radiated to both his back and down his right arm. He states that he has consistently been having this chest pain on and off for several weeks now and says that the pain manifests as moderate to severe in nature and sometimes feels more like a pressure than a pain. He also states that when he experiences this chest pain it is commonly associated with dyspnea and diaphoresis. He denies any malaise or palpitations. Troponin levels 0.88 on admission and 0.951 now. On admission EKG showed concern for worsening ischemic changes. Dr. Quijano and Dr. House wanted patient to be sent immediately to [facility] for a cardiac catheterization from ED. Patient refused to have the catheterization done. Patient hemodynamically stable. Patient for echocardiogram today. Patient continues to refuse cardiac catheterization at this time. 1. NSTEMI - EKG 06/06/17 shows NSTEMI with possible worsening ischemic changes compared to prior - Cardiology following: Dr. Quijano, Dr. House - Aspirin 81 mg PO qd - Coreg 3.125 mg PO qd - Plavix 75 mg PO qd - Heparin 2500U IV - Nitro paste topical to chest - PT, PTT, INR: 16.9/1.5/55.3 - Troponin levels 0.8840 on arrival to ED; peaked at 1.03 last night; currently 0.951, f/u new results - Echocardiogram: Left ventricle mildly dilated with normal wall thickness. Systolic function is severely impaired. Thin aneurysmal and dyskinetic apex. No LV thrombus noted. Mitral regurgitation is moderate. - CXR: No active disease. No significant interval change compared to previous studies - EKG: NSR, L anterior fascicular block, L ventricular hypertrophy with QRS widening and repolarization abnormality. Anteroseptal infarct - O2 with nasal canula - Vital signs qshift - Discussed with patient and patient still refusing cardiac catheterization at this time - Per Dr. House patient to be DC home possibly Saturday or Saturday. Will follow up with him outpatient for stress test - Continue Heparin drip as outpatient 2. DM - Humalog ACHS - Glucose 101 - [place] healthy diet - Accucheck
[2017-06-08] MEDS: Insulin Lispro (humaLOG) 100 Units/ml Inj SC SCH ×4 (08:00→22:09)
[2017-06-09] MEDS: Nitroglycerin 2% Ointment Foilpak UD TOP SCH ×4 (05:56→21:43)
[2017-06-09] MEDS: Heparin 25,000units in D5W 25,000 UNITS/250 ML BAG IV SCH (09:24)
[2017-06-09] MEDS: Enoxaparin 40 mg Syringe SC SCH (09:26)
[2017-06-09] MEDS: Insulin Lispro (humaLOG) 100 Units/ml Inj SC SCH ×4 (09:27→21:33)
--- NOTE | 2017-06-09 09:38 | CP.PCM.PN ---
Subjective - Date & Time of Evaluation Date of Evaluation: 06/09/17 Time of Evaluation: 09:00 - Subjective Subjective: NO CHEST PAIN OR SOB Objective - Vital Signs/Intake and Output Vital Signs (last 24 hours): Temp Pulse Resp BP Pulse Ox 97.7 F 66 20 121/75 97 06/09/17 08:18 06/09/17 09:26 06/09/17 08:18 06/09/17 09:26 06/09/17 08:18 Intake and Output: 06/09/17 06/09/17 06:59 18:59 Intake Total 0 Balance 0 - Medications Medications: Current Medications Acetaminophen (Tylenol 325mg Tab) 650 mg PO Q6 PRN PRN Reason: Fever >100.4 F Aspirin (Ecotrin) 81 mg PO DAILY [facility] Last Admin: 06/09/17 09:26 Dose: 81 mg Atorvastatin Calcium (Lipitor) 40 mg PO DAILY [facility] Last Admin: 06/09/17 09:26 Dose: 40 mg Carvedilol (Coreg) 3.125 mg PO DAILY [facility] Last Admin: 06/09/17 09:26 Dose: 3.125 mg Clopidogrel Bisulfate (Plavix) 75 mg PO DAILY [facility] Last Admin: 06/09/17 09:26 Dose: 75 mg Enoxaparin Sodium (Lovenox) 40 mg SC DAILY [facility] PRN Reason: Protocol Last Admin: 06/09/17 09:26 Dose: 40 mg Insulin Human Lispro (Humalog) 0 units SC ACHS [facility] PRN Reason: Protocol Last Admin: 06/09/17 09:27 Dose: Not Given Nitroglycerin (Nitro-Bid 2% Oint) 0.5 ea TOP Q6 [facility] Last Admin: 06/09/17 05:56 Dose: 0.5 ea Ondansetron HCl (Zofran Inj) 4 mg IVP Q6 PRN PRN Reason: Nausea/Vomiting Sertraline HCl (Zoloft) 50 mg PO DAILY [facility] Last Admin: 06/09/17 09:26 Dose: 50 mg Tamsulosin HCl (Flomax) 0.4 mg PO DAILY [facility] Last Admin: 06/09/17 09:26 Dose: 0.4 mg - Labs Labs: 06/06/17 10:53 06/07/17 04:45 PT 16.9 Seconds (9.8-13.1) H 06/06/17 23:10 INR 1.5 (0.9-1.2) H 06/06/17 23:10 APTT 66.6 Seconds (25.6-37.1) H 06/09/17 08:41 - Respiratory Exam Respiratory Exam: Clear to Ausculation Bilateral - Cardiovascular Exam Cardiovascular Exam: REGULAR RHYTHM, +S1, +S2 - Extremities Exam Additional comments: NO LE EDEMA - Additional Findings 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 LVE, ANTERIOR AND APICAL LANDIN ARE ANEURYSMAL, OVER SEVERE LV HYPOKINESIA Assessment and Plan - Assessment and Plan (Free Text) Assessment: CAD WITH AWMI IN 2011 WITH EMERGENCY STENT INSERTION AND NOW WITH NSTEMI WITH SEVERE LV HYPOKINESIA-PAIN FREE AND HEMODYNAMICALLY STABLE HYPERTENSION HYPERLIPIDEMIA Plan: CONTINUE O2, CARVEDILOL, NITRATES, ASPIRIN, CLOPIDOGREL AND ATORVASTATIN IV HEPARIN DISCONTINUED AND SC LOVENOX STARTED DIGOXIN STARTED DUE TO POOR LV SYSTOLIC FUNCTION WILL ALSO ADD ELINA INHIBITOR FOR LV REMODELING AFTER AN SC WILL PROBABLY DISCHARGE IN AM IF HE REMAINS CHEST PAIN FREE OFF IV HEPARIN
[2017-06-09] MEDS ORDERED: Digoxin 250 mcg (0.25 mg) Tab PO ONE (10:00)
--- NOTE | 2017-06-09 13:15 | CP.PCM.PN ---
Subjective - Date & Time of Evaluation Date of Evaluation: 06/09/17 Time of Evaluation: 10:00 - Subjective Subjective: Pt denies CP at present no palpitation no SOB, no wheezing Glucose controlled without meds no abd pain no N/V Objective - Vital Signs/Intake and Output Vital Signs (last 24 hours): Temp Pulse Resp BP Pulse Ox 98 F 69 20 135/81 96 06/09/17 12:00 06/09/17 12:00 06/09/17 12:00 06/09/17 12:00 06/09/17 12:00 Intake and Output: 06/09/17 06/09/17 06:59 18:59 Intake Total 0 Balance 0 - Medications Medications: Current Medications Acetaminophen (Tylenol 325mg Tab) 650 mg PO Q6 PRN PRN Reason: Fever >100.4 F Aspirin (Ecotrin) 81 mg PO DAILY [facility] Last Admin: 06/09/17 09:26 Dose: 81 mg Atorvastatin Calcium (Lipitor) 40 mg PO DAILY [facility] Last Admin: 06/09/17 09:26 Dose: 40 mg Carvedilol (Coreg) 3.125 mg PO DAILY [facility] Last Admin: 06/09/17 09:26 Dose: 3.125 mg Clopidogrel Bisulfate (Plavix) 75 mg PO DAILY [facility] Last Admin: 06/09/17 09:26 Dose: 75 mg Digoxin (Lanoxin) 0.125 mg PO DAILY [facility] Enalapril Maleate (Vasotec) 5 mg PO DAILY [facility] Enoxaparin Sodium (Lovenox) 40 mg SC DAILY [facility] PRN Reason: Protocol Last Admin: 06/09/17 09:26 Dose: 40 mg Insulin Human Lispro (Humalog) 0 units SC ACHS [facility] PRN Reason: Protocol Last Admin: 06/09/17 09:27 Dose: Not Given Nitroglycerin (Nitro-Bid 2% Oint) 0.5 ea TOP Q6 [facility] Last Admin: 06/09/17 09:36 Dose: 0.5 ea Ondansetron HCl (Zofran Inj) 4 mg IVP Q6 PRN PRN Reason: Nausea/Vomiting Sertraline HCl (Zoloft) 50 mg PO DAILY [facility] Last Admin: 06/09/17 09:26 Dose: 50 mg Tamsulosin HCl (Flomax) 0.4 mg PO DAILY [facility] Last Admin: 06/09/17 09:26 Dose: 0.4 mg - Labs Labs: 06/06/17 10:53 06/07/17 04:45 PT 16.9 Seconds (9.8-13.1) H 06/06/17 23:10 INR 1.5 (0.9-1.2) H 06/06/17 23:10 APTT 66.6 Seconds (25.6-37.1) H 06/09/17 08:41 - Constitutional Appears: No Acute Distress, Older Than Stated Age, Chronically Ill - Head Exam Head Exam: NORMAL INSPECTION, NORMOCEPHALIC - Eye Exam Eye Exam: EOMI, Normal appearance Pupil Exam: NORMAL ACCOMODATION - ENT Exam ENT Exam: Mucous Membranes Moist, Normal External Ear Exam - Neck Exam Neck Exam: Full ROM. absent: Meningismus - Respiratory Exam Respiratory Exam: NORMAL BREATHING PATTERN. absent: Wheezes, Respiratory Distress - Cardiovascular Exam Cardiovascular Exam: REGULAR RHYTHM, +S1, +S2 - GI/Abdominal Exam GI & Abdominal Exam: Soft, Normal Bowel Sounds. absent: Tenderness - Extremities Exam Extremities Exam: Normal Capillary Refill. absent: Calf Tenderness, Pedal Edema - Back Exam Back Exam: Full ROM. absent: CVA tenderness (L), CVA tenderness (R) - Neurological Exam Neurological Exam: Alert, Awake, CN II-XII Intact, Oriented x3 - Psychiatric Exam Psychiatric exam: Normal Affect, Normal Mood - Skin Skin Exam: Dry, Normal Color, Warm Assessment and Plan (1) NSTEMI (non-ST elevated myocardial infarction) Status: Acute (2) LV dysfunction Status: Acute (3) COPD (chronic obstructive pulmonary disease) Status: Chronic (4) DM2 (diabetes mellitus, type 2) Status: Chronic (5) DVT prophylaxis Status: Acute - Assessment and Plan (Free Text) Assessment: 71 y/o gent with hx of COPD, HTN, CAD, DM, came in bec of chest discomfort radiating to the right arm and upper back accompanied by diaphoresis. Troponin + , ECHO showed severe LV dysfunction, dyskinetic apex. Started on ASA , Plavix, Heparin drip, BB, ELINA. Cardio consulted . Pt refused Cardiac cath. (1) NSTEMI (non-ST elevated myocardial infarction) Status: Acute Troponin elevation started on ASA, Plavix, Heparin drip, BB, and statin Cardio : Dr House Int Cardio : DR Quijano consulted- pt refused Cardiac cath Dr House added ELINA inhibitor will d/c Heparin drip, start Lovenox (2) LV dysfunction Status: Acute started by Cardio on ELINA and Digoxin, cont BB (3) COPD (chronic obstructive pulmonary disease) Status: Chronic Duoneb prn (4) DM2 (diabetes mellitus, type 2) Status: Chronic glucose controlled without meds cont Accuheck and SS Insulin coverage (5) DVT prophylaxis Status: Acute Lovenox
[2017-06-09] MEDS ORDERED: Albuterol HFA 90 mcg/actuation (8 g) IH PRN (13:20)
[2017-06-09] MEDS ORDERED: Albuterol-Ipratrop 3 mg / 0.5 (3 ml) UD INH PRN (13:21)
[2017-06-10] MEDS: Nitroglycerin 2% Ointment Foilpak UD TOP SCH ×2 (04:08→09:50)
[2017-06-10 05:27] LABS: MEAN CELL VOLUME 96.2 fl (80.0-94.0); MEAN CORPUSCULAR HEMOGLOBIN 31.1 pg (27.0-31.0); MEAN CORPUSCULAR HGB CONC 32.4 g/dL (33.0-37.0); RED CELL DISTRIBUTION WIDTH 14.1 % (11.5-14.5)
[2017-06-10 05:35] LABS: BLOOD UREA NITROGEN 13 mg/dl (9-20); CALCIUM 8.7 mg/dL (8.4-10.2); CARBON DIOXIDE 29 mmol/L (22-30); CHLORIDE 103 mmol/L (98-107); GFR AFRICAN-AMERICAN > 60; GLUCOSE,RANDOM 84 mg/dL (75-110); POTASSIUM 4.5 MMOL/L (3.6-5.0); SODIUM 139 mmol/l (132-148)
[2017-06-10] MEDS: Insulin Lispro (humaLOG) 100 Units/ml Inj SC SCH (06:49)
[2017-06-10 08:46] VITALS: RESP 20; TEMP 97.9; O2SAT 97
[2017-06-10] MEDS ORDERED: Digoxin 125 mcg (0.125 mg) Tab PO SCH (09:00)
--- NOTE | 2017-06-10 09:45 | CP.PCM.PN ---
Subjective - Date & Time of Evaluation Date of Evaluation: 06/10/17 Time of Evaluation: 09:42 - Subjective Subjective: 71 year old male with PMHx anxiety, asthma, CAD, cardiac arrythmia, CHF, COPD, CVA, DM, Emphysema, HTN, Hypercholesterolemia, Hyperlipidemia, Multiple Sclerosis, TIA seen at bedside four days s/p NSTEMI. Patient is AAO x 3 and NAD resting comfortably in bed. Patient denies any recent shortness of breath, palpitations, or chest pain. Denies any further complaints at this time. Denies N/V/F/C/posterior calf pain/constipation/urinary retention Objective - Vital Signs/Intake and Output Vital Signs (last 24 hours): Temp Pulse Resp BP Pulse Ox 97.9 F 58 L 20 98/59 L 97 06/10/17 08:45 06/10/17 08:45 06/10/17 08:45 06/10/17 08:45 06/10/17 08:45 - Medications Medications: Current Medications Acetaminophen (Tylenol 325mg Tab) 650 mg PO Q6 PRN PRN Reason: Fever >100.4 F Albuterol (Ventolin Hfa 90 Mcg/Actuation (8 G)) 2 puff IH Q6H PRN PRN Reason: Shortness of Breath Albuterol/Ipratropium (Duoneb 3 Mg/0.5 Mg (3 Ml) Ud) 3 ml INH RQ6 PRN PRN Reason: Shortness of Breath Aspirin (Ecotrin) 81 mg PO DAILY [facility] Last Admin: 06/09/17 09:26 Dose: 81 mg Atorvastatin Calcium (Lipitor) 40 mg PO DAILY [facility] Last Admin: 06/09/17 09:26 Dose: 40 mg Carvedilol (Coreg) 3.125 mg PO DAILY [facility] Last Admin: 06/09/17 09:26 Dose: 3.125 mg Clopidogrel Bisulfate (Plavix) 75 mg PO DAILY [facility] Last Admin: 06/09/17 09:26 Dose: 75 mg Digoxin (Lanoxin) 0.125 mg PO DAILY [facility] Enalapril Maleate (Vasotec) 5 mg PO DAILY [facility] Last Admin: 06/09/17 21:44 Dose: 5 mg Enoxaparin Sodium (Lovenox) 40 mg SC DAILY [facility] PRN Reason: Protocol Last Admin: 06/09/17 09:26 Dose: 40 mg Insulin Human Lispro (Humalog) 0 units SC ACHS [facility] PRN Reason: Protocol Last Admin: 06/10/17 06:49 Dose: Not Given Nitroglycerin (Nitro-Bid 2% Oint) 0.5 ea TOP Q6 [facility] Last Admin: 06/10/17 04:08 Dose: Not Given Ondansetron HCl (Zofran Inj) 4 mg IVP Q6 PRN PRN Reason: Nausea/Vomiting Sertraline HCl (Zoloft) 50 mg PO DAILY [facility] Last Admin: 06/09/17 09:26 Dose: 50 mg Tamsulosin HCl (Flomax) 0.4 mg PO DAILY [facility] Last Admin: 06/09/17 09:26 Dose: 0.4 mg Tramadol HCl (Ultram) 50 mg PO TID PRN PRN Reason: Pain, moderate (4-7) - Labs Labs: 06/10/17 04:40 06/10/17 04:40 PT 16.9 Seconds (9.8-13.1) H 06/06/17 23:10 INR 1.5 (0.9-1.2) H 06/06/17 23:10 APTT 35.6 Seconds (25.6-37.1) D 06/10/17 08:24 - Constitutional Appears: Well, Non-toxic, No Acute Distress - Head Exam Head Exam: ATRAUMATIC, NORMOCEPHALIC - Eye Exam Eye Exam: EOMI, PERRL Pupil Exam: PERRL - ENT Exam ENT Exam: Mucous Membranes Moist - Neck Exam Neck Exam: absent: Tenderness - Respiratory Exam Respiratory Exam: NORMAL BREATHING PATTERN. absent: Wheezes, Respiratory Distress - Cardiovascular Exam Cardiovascular Exam: REGULAR RHYTHM - GI/Abdominal Exam GI & Abdominal Exam: Soft. absent: Distended, Firm, Guarding - Rectal Exam Rectal Exam: Deferred - Extremities Exam Extremities Exam: Normal Inspection - Neurological Exam Neurological Exam: Alert, Awake, Oriented x3 - Psychiatric Exam Psychiatric exam: Normal Affect, Normal Mood - Skin Skin Exam: Intact, Normal Color, Warm Assessment and Plan - Assessment and Plan (Free Text) Assessment: 71 y/o male with hx of COPD, HTN, CAD, DM, came in bec of chest discomfort radiating to the right arm and upper back accompanied by diaphoresis. Troponin + , ECHO showed severe LV dysfunction, dyskinetic apex. Started on ASA , Plavix, Heparin ip, BB, ELINA. Cardio consulted . Pt refused Cardiac cath. Pt to be DC home today Plan: (1) NSTEMI (non-ST elevated myocardial infarction) Status: Acute Troponin elevation started on ASA, Plavix, Lovenox, BB, and statin, ELINA inhibitor DC Nitro paste Tramadol prn pain Cardio : Dr House Int Cardio : DR Quijano consulted- pt refused Cardiac cath Per Dr. House for DC today (2) LV dysfunction Status: Acute started by Cardio on ELINA, cont BB, DC digoxin (3) COPD (chronic obstructive pulmonary disease) Status: Chronic Duoneb prn (4) DM2 (diabetes mellitus, type 2) Status: Chronic POC glucose 144 glucose controlled without meds cont Accuheck and SS Insulin coverage (5) DVT prophylaxis Status: Acute Lovenox, Plavix (6) Hypotension - BP 98/59
[2017-06-10] MEDS: Enoxaparin 40 mg Syringe SC SCH (09:49)
[2017-06-10 09:51] VITALS: PULSE 58
--- NOTE | 2017-06-10 11:07 | CP.PCM.PN ---
Subjective - Date & Time of Evaluation Date of Evaluation: 06/10/17 Time of Evaluation: 10:00 - Subjective Subjective: NO CHEST PAIN OR SOB FEELS GOOD Objective - Vital Signs/Intake and Output Vital Signs (last 24 hours): Temp Pulse Resp BP Pulse Ox 97.9 F 58 L 20 98/59 L 97 06/10/17 08:45 06/10/17 09:50 06/10/17 08:45 06/10/17 09:50 06/10/17 08:45 - Medications Medications: Current Medications Acetaminophen (Tylenol 325mg Tab) 650 mg PO Q6 PRN PRN Reason: Fever >100.4 F Albuterol (Ventolin Hfa 90 Mcg/Actuation (8 G)) 2 puff IH Q6H PRN PRN Reason: Shortness of Breath Albuterol/Ipratropium (Duoneb 3 Mg/0.5 Mg (3 Ml) Ud) 3 ml INH RQ6 PRN PRN Reason: Shortness of Breath Aspirin (Ecotrin) 81 mg PO DAILY [facility] Last Admin: 06/10/17 09:49 Dose: 81 mg Atorvastatin Calcium (Lipitor) 40 mg PO DAILY [facility] Last Admin: 06/10/17 09:49 Dose: 40 mg Carvedilol (Coreg) 3.125 mg PO DAILY [facility] Last Admin: 06/10/17 09:48 Dose: Not Given Clopidogrel Bisulfate (Plavix) 75 mg PO DAILY [facility] Last Admin: 06/10/17 09:50 Dose: 75 mg Digoxin (Lanoxin) 0.125 mg PO DAILY [facility] Last Admin: 06/10/17 09:50 Dose: Not Given Enoxaparin Sodium (Lovenox) 40 mg SC DAILY [facility] PRN Reason: Protocol Last Admin: 06/10/17 09:49 Dose: 40 mg Insulin Human Lispro (Humalog) 0 units SC [facility] PRN Reason: Protocol Last Admin: 06/10/17 06:49 Dose: Not Given Ondansetron HCl (Zofran Inj) 4 mg IVP Q6 PRN PRN Reason: Nausea/Vomiting Sertraline HCl (Zoloft) 50 mg PO DAILY [facility] Last Admin: 06/10/17 09:50 Dose: 50 mg Tamsulosin HCl (Flomax) 0.4 mg PO DAILY [facility] Last Admin: 06/10/17 09:49 Dose: 0.4 mg Tramadol HCl (Ultram) 50 mg PO TID PRN PRN Reason: Pain, moderate (4-7) - Labs Labs: 06/10/17 04:40 06/10/17 04:40 PT 16.9 Seconds (9.8-13.1) H 06/06/17 23:10 INR 1.5 (0.9-1.2) H 06/06/17 23:10 APTT 35.6 Seconds (25.6-37.1) D 06/10/17 08:24 - Respiratory Exam Respiratory Exam: Clear to Ausculation Bilateral - Cardiovascular Exam Cardiovascular Exam: REGULAR RHYTHM, +S1, +S2 - Extremities Exam Extremities Exam: Normal Inspection - Additional Findings 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
--- NOTE | 2017-06-10 11:31 | CP.PCM.DIS ---
Provider - Provider Date of Admission: 06/06/17 17:10 Attending physician: Lana Corona DO [facility] Course - Lab Results Lab Results: Most Recent Lab Values WBC 7.0 K/uL (4.8-10.8) 06/10/17 04:40 RBC 3.85 Mil/uL (4.40-5.90) L 06/10/17 04:40 Hgb 12.0 g/dL (12.0-18.0) 06/10/17 04:40 Hct 37.0 % (35.0-51.0) 06/10/17 04:40 MCV 96.2 fl (80.0-94.0) H 06/10/17 04:40 MCH 31.1 pg (27.0-31.0) H 06/10/17 04:40 MCHC 32.4 g/dL (33.0-37.0) L 06/10/17 04:40 RDW 14.1 % (11.5-14.5) 06/10/17 04:40 Plt Count 227 K/uL (130-400) 06/10/17 04:40 MPV 8.8 fl (7.2-11.7) 06/06/17 10:53 Neut % (Auto) 71.5 % (50.0-75.0) 06/06/17 10:53 Lymph % (Auto) 17.2 % (20.0-40.0) L 06/06/17 10:53 [place]once % (Auto) 8.8 % (0.0-10.0) 06/06/17 10:53 Eos % (Auto) 1.2 % (0.0-4.0) 06/06/17 10:53 Baso % (Auto) 1.3 % (0.0-2.0) 06/06/17 10:53 Neut # 6.6 K/uL (1.8-7.0) 06/06/17 10:53 Lymph # 1.6 K/uL (1.0-4.3) 06/06/17 10:53 Ponce # 0.8 K/uL (0.0-0.8) 06/06/17 10:53 Eos # 0.1 K/uL (0.0-0.7) 06/06/17 10:53 Baso # 0.1 K/uL (0.0-0.2) 06/06/17 10:53 PT 16.9 Seconds (9.8-13.1) H 06/06/17 23:10 INR 1.5 (0.9-1.2) H 06/06/17 23:10 APTT 35.6 Seconds (25.6-37.1) D 06/10/17 08:24 Sodium 139 mmol/l (132-148) 06/10/17 04:40 Potassium 4.5 MMOL/L (3.6-5.0) 06/10/17 04:40 Chloride 103 mmol/L (98-107) 06/10/17 04:40 Carbon Dioxide 29 mmol/L (22-30) 06/10/17 04:40 Anion Gap 12 (10-20) 06/10/17 04:40 BUN 13 mg/dl (9-20) 06/10/17 04:40 Creatinine 1.1 mg/dl (0.8-1.5) 06/10/17 04:40 Est GFR ( Amer) > 60 06/10/17 04:40 Est GFR (Non-Af Amer) > 60 06/10/17 04:40 POC Glucose (mg/dL) 152 mg/dL (65-110) H 06/10/17 10:59 Random Glucose 84 mg/dL (75-110) 06/10/17 04:40 Calcium 8.7 mg/dL (8.4-10.2) 06/10/17 04:40 Total Bilirubin 0.8 mg/dl (0.2-1.3) 06/06/17 10:53 AST 17 U/L (17-59) D 06/06/17 10:53 ALT 19 U/L (21-72) L 06/06/17 10:53 Alkaline Phosphatase 69 U/L (38-126) 06/06/17 10:53 Troponin I 0.9510 ng/mL (0.00-0.120) H* 06/06/17 23:10 NT-Pro-B Natriuret Pep 93677 pg/ml (0-900) H 06/06/17 14:04 Total Protein 7.2 G/DL (6.3-8.2) 06/06/17 10:53 Albumin 3.9 g/dL (3.5-5.0) 06/06/17 10:53 Globulin 3.3 gm/dL (2.2-3.9) 06/06/17 10:53 Albumin/Globulin Ratio 1.2 (1.0-2.1) 06/06/17 10:53 Triglycerides 118 mg/DL (0-149) D 06/07/17 04:45 Cholesterol 150 mg/dL (0-199) 06/07/17 04:45 LDL Cholesterol Direct 110 mg/dL (0-129) 06/07/17 04:45 HDL Cholesterol 21 MG/DL (30-70) L 06/07/17 04:45 TSH 3rd Generation 2.68 mIU/ML (0.46-4.68) 06/07/17 04:45 Discharge Exam - Head Exam Head Exam: NORMAL INSPECTION, NORMOCEPHALIC Discharge Plan - Discharge Medications Prescriptions: Aspirin [Ecotrin] 81 mg PO DAILY #100 tabec Atorvastatin [Lipitor] 20 mg PO DAILY #30 tab Carvedilol [Coreg] 3.125 mg PO DAILY #30 tab Clopidogrel [Plavix] 75 mg PO DAILY #30 tab - Follow Up Plan Condition: STABLE Disposition: HOME/ ROUTINE Additional Instructions: ff up with Dr House and Dr Pandya in 1 wk
--- NOTE | 2017-06-10 11:33 | CP.PCM.DIS ---
<Huey Iqbal - Last Filed: 06/10/17 11:40> Provider - Provider Date of Admission: 06/06/17 17:10 Attending physician: Lana Corona DO Primary care physician: Dr. Pandya Consults: Cardiology: Dr. House Interventional Cardiology: Dr. Quijano Time Spent in preparation of Discharge (in minutes): 20 Diagnosis - Discharge Diagnosis (1) NSTEMI (non-ST elevated myocardial infarction) Status: Acute (2) COPD (chronic obstructive pulmonary disease) Status: Chronic (3) LV dysfunction Status: Acute Hospital Course - Lab Results Lab Results: Most Recent Lab Values WBC 7.0 K/uL (4.8-10.8) 06/10/17 04:40 RBC 3.85 Mil/uL (4.40-5.90) L 06/10/17 04:40 Hgb 12.0 g/dL (12.0-18.0) 06/10/17 04:40 Hct 37.0 % (35.0-51.0) 06/10/17 04:40 MCV 96.2 fl (80.0-94.0) H 06/10/17 04:40 MCH 31.1 pg (27.0-31.0) H 06/10/17 04:40 MCHC 32.4 g/dL (33.0-37.0) L 06/10/17 04:40 RDW 14.1 % (11.5-14.5) 06/10/17 04:40 Plt Count 227 K/uL (130-400) 06/10/17 04:40 MPV 8.8 fl (7.2-11.7) 06/06/17 10:53 Neut % (Auto) 71.5 % (50.0-75.0) 06/06/17 10:53 Lymph % (Auto) 17.2 % (20.0-40.0) L 06/06/17 10:53 [place] % (Auto) 8.8 % (0.0-10.0) 06/06/17 10:53 Eos % (Auto) 1.2 % (0.0-4.0) 06/06/17 10:53 Baso % (Auto) 1.3 % (0.0-2.0) 06/06/17 10:53 Neut # 6.6 K/uL (1.8-7.0) 06/06/17 10:53 Lymph # 1.6 K/uL (1.0-4.3) 06/06/17 10:53 [place] # 0.8 K/uL (0.0-0.8) 06/06/17 10:53 Eos # 0.1 K/uL (0.0-0.7) 06/06/17 10:53 Baso # 0.1 K/uL (0.0-0.2) 06/06/17 10:53 PT 16.9 Seconds (9.8-13.1) H 06/06/17 23:10 INR 1.5 (0.9-1.2) H 06/06/17 23:10 APTT 35.6 Seconds (25.6-37.1) D 06/10/17 08:24 Sodium 139 mmol/l (132-148) 06/10/17 04:40 Potassium 4.5 MMOL/L (3.6-5.0) 06/10/17 04:40 Chloride 103 mmol/L (98-107) 06/10/17 04:40 Carbon Dioxide 29 mmol/L (22-30) 06/10/17 04:40 Anion Gap 12 (10-20) 06/10/17 04:40 BUN 13 mg/dl (9-20) 06/10/17 04:40 Creatinine 1.1 mg/dl (0.8-1.5) 06/10/17 04:40 Est GFR ( Amer) > 60 06/10/17 04:40 Est GFR (Non-Af Amer) > 60 06/10/17 04:40 POC Glucose (mg/dL) 152 mg/dL (65-110) H 06/10/17 10:59 Random Glucose 84 mg/dL (75-110) 06/10/17 04:40 Calcium 8.7 mg/dL (8.4-10.2) 06/10/17 04:40 Total Bilirubin 0.8 mg/dl (0.2-1.3) 06/06/17 10:53 AST 17 U/L (17-59) D 06/06/17 10:53 ALT 19 U/L (21-72) L 06/06/17 10:53 Alkaline Phosphatase 69 U/L (38-126) 06/06/17 10:53 Troponin I 0.9510 ng/mL (0.00-0.120) H* 06/06/17 23:10 NT-Pro-B Natriuret Pep 19226 pg/ml (0-900) H 06/06/17 14:04 Total Protein 7.2 G/DL (6.3-8.2) 06/06/17 10:53 Albumin 3.9 g/dL (3.5-5.0) 06/06/17 10:53 Globulin 3.3 gm/dL (2.2-3.9) 06/06/17 10:53 Albumin/Globulin Ratio 1.2 (1.0-2.1) 06/06/17 10:53 Triglycerides 118 mg/DL (0-149) D 06/07/17 04:45 Cholesterol 150 mg/dL (0-199) 06/07/17 04:45 LDL Cholesterol Direct 110 mg/dL (0-129) 06/07/17 04:45 HDL Cholesterol 21 MG/DL (30-70) L 06/07/17 04:45 TSH 3rd Generation 2.68 mIU/ML (0.46-4.68) 06/07/17 04:45 - Hospital Course Hospital Course: 71 y/o gent with hx of COPD, HTN, CAD, DM, came in bec of chest discomfort radiating to the right arm and upper back accompanied by diaphoresis. Troponin + , ECHO showed severe LV dysfunction, dyskinetic apex. Started on ASA , Plavix, Heparin drip, BB, ELINA. Cardio consulted. Heparin drip later DC for Lovenox. Pt refused Cardiac cath. Per Cardio patient stable to be DC home today on Coreg and to follow up with Dr. House and Dr. Pandya in one week as an outpatient - Date & Time of H&P Date of H&P: 06/10/17 Time of H&P: 11:33 Discharge Exam - Head Exam Head Exam: NORMAL INSPECTION, NORMOCEPHALIC - Eye Exam Eye Exam: EOMI, PERRL Pupil Exam: PERRL - ENT Exam ENT Exam: Mucous Membranes Moist - Neck Exam Neck exam: Normal Inspection - Respiratory Exam Respiratory Exam: NORMAL BREATHING PATTERN, UNREMARKABLE - Cardiovascular Exam Cardiovascular Exam: REGULAR RHYTHM - GI/Abdominal Exam GI & Abdominal Exam: Soft, Unremarkable. absent: Distended, Firm, Guarding - Rectal Exam Rectal Exam: Deferred - Extremities Exam Extremities exam: normal inspection - Neurological Exam Neurological exam: Alert, Oriented x3 - Psychiatric Exam Psychiatric exam: Normal Affect, Normal Mood - Skin Skin Exam: Intact, Normal Color, Warm Discharge Plan - Discharge Medications Prescriptions: Aspirin [Ecotrin] 81 mg PO DAILY #100 tabec Atorvastatin [Lipitor] 20 mg PO DAILY #30 tab Carvedilol [Coreg] 3.125 mg PO DAILY #30 tab Clopidogrel [Plavix] 75 mg PO DAILY #30 tab - Follow Up Plan Condition: STABLE Disposition: HOME/ ROUTINE Additional Instructions: ff up with Dr House and Dr Pandya in 1 wk Clinical Quality Measures - CQM - Stroke Antithrombotic Prescribed: Yes Statin prescribed: Yes <Jayna Sher - Last Filed: 06/10/17 11:46> Provider - Provider Date of Admission: 06/06/17 17:10 Attending physician: Lana Corona DO Diagnosis - Discharge Diagnosis (1) NSTEMI (non-ST elevated myocardial infarction) Status: Acute (2) LV dysfunction Status: Acute (3) COPD (chronic obstructive pulmonary disease) Status: Chronic (4) DM2 (diabetes mellitus, type 2) Status: Chronic Priority: Low (5) DVT prophylaxis Status: Acute Hospital Course - Lab Results Lab Results: Most Recent Lab Values WBC 7.0 K/uL (4.8-10.8) 06/10/17 04:40 RBC 3.85 Mil/uL (4.40-5.90) L 06/10/17 04:40 Hgb 12.0 g/dL (12.0-18.0) 06/10/17 04:40 Hct 37.0 % (35.0-51.0) 06/10/17 04:40 MCV 96.2 fl (80.0-94.0) H 06/10/17 04:40 MCH 31.1 pg (27.0-31.0) H 06/10/17 04:40 MCHC 32.4 g/dL (33.0-37.0) L 06/10/17 04:40 RDW 14.1 % (11.5-14.5) 06/10/17 04:40 Plt Count 227 K/uL (130-400) 06/10/17 04:40 MPV 8.8 fl (7.2-11.7) 06/06/17 10:53 Neut % (Auto) 71.5 % (50.0-75.0) 06/06/17 10:53 Lymph % (Auto) 17.2 % (20.0-40.0) L 06/06/17 10:53 [place] % (Auto) 8.8 % (0.0-10.0) 06/06/17 10:53 Eos % (Auto) 1.2 % (0.0-4.0) 06/06/17 10:53 Baso % (Auto) 1.3 % (0.0-2.0) 06/06/17 10:53 Neut # 6.6 K/uL (1.8-7.0) 06/06/17 10:53 Lymph # 1.6 K/uL (1.0-4.3) 06/06/17 10:53 Pine # 0.8 K/uL (0.0-0.8) 06/06/17 10:53 Eos # 0.1 K/uL (0.0-0.7) 06/06/17 10:53 Baso # 0.1 K/uL (0.0-0.2) 06/06/17 10:53 PT 16.9 Seconds (9.8-13.1) H 06/06/17 23:10 INR 1.5 (0.9-1.2) H 06/06/17 23:10 APTT 35.6 Seconds (25.6-37.1) D 06/10/17 08:24 Sodium 139 mmol/l (132-148) 06/10/17 04:40 Potassium 4.5 MMOL/L (3.6-5.0) 06/10/17 04:40 Chloride 103 mmol/L (98-107) 06/10/17 04:40 Carbon Dioxide 29 mmol/L (22-30) 06/10/17 04:40 Anion Gap 12 (10-20) 06/10/17 04:40 BUN 13 mg/dl (9-20) 06/10/17 04:40 Creatinine 1.1 mg/dl (0.8-1.5) 06/10/17 04:40 Est GFR ( Amer) > 60 06/10/17 04:40 Est GFR (Non-Af Amer) > 60 06/10/17 04:40 POC Glucose (mg/dL) 152 mg/dL (65-110) H 06/10/17 10:59 Random Glucose 84 mg/dL (75-110) 06/10/17 04:40 Calcium 8.7 mg/dL (8.4-10.2) 06/10/17 04:40 Total Bilirubin 0.8 mg/dl (0.2-1.3) 06/06/17 10:53 AST 17 U/L (17-59) D 06/06/17 10:53 ALT 19 U/L (21-72) L 06/06/17 10:53 Alkaline Phosphatase 69 U/L (38-126) 06/06/17 10:53 Troponin I 0.9510 ng/mL (0.00-0.120) H* 06/06/17 23:10 NT-Pro-B Natriuret Pep 82448 pg/ml (0-900) H 06/06/17 14:04 Total Protein 7.2 G/DL (6.3-8.2) 06/06/17 10:53 Albumin 3.9 g/dL (3.5-5.0) 06/06/17 10:53 Globulin 3.3 gm/dL (2.2-3.9) 06/06/17 10:53 Albumin/Globulin Ratio 1.2 (1.0-2.1) 06/06/17 10:53 Triglycerides 118 mg/DL (0-149) D 06/07/17 04:45 Cholesterol 150 mg/dL (0-199) 06/07/17 04:45 LDL Cholesterol Direct 110 mg/dL (0-129) 06/07/17 04:45 HDL Cholesterol 21 MG/DL (30-70) L 06/07/17 04:45 TSH 3rd Generation 2.68 mIU/ML (0.46-4.68) 06/07/17 04:45 Attending/Attestation - Attestation I have personally seen and examined this patient.: Yes I have fully participated in the care of the patient.: Yes I have reviewed all pertinent clinical information, including history, physical exam and plan: Yes Notes (Text): NSTEMI LV Dysfunction - cont ASA,Plavix, Lipitor and Coreg once daily - d/c Vasotec due to hypotension - d/c Digoxin due to bradycardia - ff up with Dr House for further cardiac work up as outpt ( Nuclear Stress test) COPD, stable -cont inahlers - ff up with dr Pandya DM type II diet controlled d/c Glyburide /Metformin as glucose monitoring in the hospital showed normal glucose without meds
[2017-06-10 11:53] VITALS: BP 116/66; PULSE 71
== END 2017-06-10 13:45 | disposition home or self-care (01) | DRG 281 ==
LOC: H.ER 09:36 → H.ERHOLD 13:42 → OBSVTOIN 17:10 → H.TEL 18:13
PROVIDERS: ADMIT Student in an Organized Health Care Education/Training Program; ATTEND Student in an Organized Health Care Education/Training Program
DX: I21.4 Non-ST elevation (NSTEMI) myocardial infarction (principal); I50.22 Chronic systolic (congestive) heart failure; G35 Multiple sclerosis; I11.0 Hypertensive heart disease with heart failure; I95.9 Hypotension, unspecified; E11.9 Type 2 diabetes mellitus without complications; I25.2 Old myocardial infarction; I25.110 Atherosclerotic heart disease of native coronary artery with unstable angina pectoris; I34.0 Nonrheumatic mitral (valve) insufficiency; J43.9 Emphysema, unspecified; N40.0 Benign prostatic hyperplasia without lower urinary tract symptoms; Z79.82 Long term (current) use of aspirin; Z79.899 Other long term (current) drug therapy; Z86.73 Personal history of transient ischemic attack (TIA), and cerebral infarction without residual deficits; Z90.49 Acquired absence of other specified parts of digestive tract; Z95.5 Presence of coronary angioplasty implant and graft; F41.9 Anxiety disorder, unspecified; F45.9 Somatoform disorder, unspecified; R00.1 Bradycardia, unspecified; E78.00 Pure hypercholesterolemia, unspecified; E78.5 Hyperlipidemia, unspecified; F17.210 Nicotine dependence, cigarettes, uncomplicated

== ENCOUNTER 2017-07-07 20:08 | Inpatient (IN) | payer MEDICARE, OTHER ==
[2017-07-07] MEDS ORDERED: Albuterol-Ipratrop 3 mg / 0.5 (3 ml) UD INH STA ×2 (20:35→20:40)
[2017-07-07 20:43] LABS: BASO % 0.3 % (0.0-2.0); EOS # 0.4 K/uL (0.0-0.7); EOS % 3.6 % (0.0-4.0); HEMOGLOBIN 13.1 g/dL (12.0-18.0); LYMPH # 2.1 K/uL (1.0-4.3); LYMPH % 19.8 % (20.0-40.0); MEAN CELL VOLUME 94.1 fl (80.0-94.0); MEAN CORPUSCULAR HEMOGLOBIN 31.6 pg (27.0-31.0); MEAN CORPUSCULAR HGB CONC 33.5 g/dL (33.0-37.0); MEAN PLATELET VOLUME 8.5 fl (7.2-11.7); MONO # 0.7 K/uL (0.0-0.8); MONO % 6.8 % (0.0-10.0); NEUT # 7.4 K/uL (1.8-7.0); NEUT % 69.5 % (50.0-75.0); NRBC % 0.1 % (0.0-0.0); RBC 4.16 Mil/uL (4.40-5.90); RED CELL DISTRIBUTION WIDTH 13.8 % (11.5-14.5); WHITE BLOOD COUNT 10.7 K/uL (4.8-10.8)
[2017-07-07 20:56] LABS: ALB/GLOB RATIO 1.1 (1.0-2.1); ALBUMIN 3.7 g/dL (3.5-5.0); ALT/SGPT 29 U/L (21-72); AST/SGOT 26 U/L (17-59); BLOOD UREA NITROGEN 8 mg/dl (9-20); CALCIUM 9.1 mg/dL (8.4-10.2); GFR AFRICAN-AMERICAN > 60; GFR NON-AFRICAN AMERICAN > 60
--- NOTE | 2017-07-07 21:10 | ED PDOC ---
HPI: SOB/CHF/COPD Time Seen by Provider: 07/07/17 20:16 Chief Complaint (Nursing): Shortness Of Breath Chief Complaint (Provider): Shortness of Breath History Per: Patient History/Exam Limitations: no limitations Onset/Duration Of Symptoms: Days (x1) Current Symptoms Are (Timing): Still Present Associated Symptoms: denies: Fever, Chills Additional Complaint(s): 71 year old male with a past medical history of congestive heart failure, Chronic obstructive pulmonary disease, hypertension and recent NSTEMI presents to the ED complaining of shortness of breath x1 day. The patient reports that he did not use his nebulizer prior to arrival. Patient also notes some tightness in his chest. Denies nausea, vomiting and diaphoresis. PMD: Maximo Ortiz - Risk Factors PE Risk Factors: Pos: CHF Past Medical History Reviewed: Historical Data, Nursing Documentation, Vital Signs Vital Signs: Last Vital Signs Temp 97.8 F 07/07/17 23:55 Pulse 65 07/07/17 23:55 Resp 18 07/07/17 23:55 BP 125/73 07/07/17 23:55 Pulse Ox 97 07/07/17 23:55 - Medical History PMH: Anxiety, Asthma, CAD, Cardia Arrhythmia, CHF, COPD, CVA, Diabetes, Emphysema, Fractures (b/l feet), HTN, Hypercholesterolemia, Hyperlipidemia, Multiple Sclerosis, TIA Denies: Bronchitis, Depression, HIV, Chronic Kidney Disease - Surgical History Surgical History: Cholecystectomy, Coronary Stent (x3) Denies: CABG Other surgeries: Stent in right lower extremity - Family History Family History: States: Unknown Family Hx, Diabetes - Social History Current smoker - smoking cessation education provided: Yes (Light Smoker < 10 Cigarettes Daily) Ex-Smoker (has not smoked in the last 12 months): Yes Alcohol: None Drugs: Denies - Home Medications Home Medications: Ambulatory Orders Medication Instructions Recorded Albuterol HFA [Ventolin HFA 90 2 puff IH Q6H PRN 06/06/17 mcg/actuation (8 g)] Sertraline [Zoloft] 50 mg PO DAILY 06/06/17 Tamsulosin [Flomax] 0.4 mg PO DAILY 06/06/17 traMADol [Ultram] 50 mg PO TID 06/06/17 Acetaminophen [Tylenol 325mg tab] 650 mg PO Q6 PRN tab 06/10/17 Aspirin [Ecotrin] 81 mg PO DAILY #100 tabec 06/10/17 Atorvastatin [Lipitor] 20 mg PO DAILY #30 tab 06/10/17 Carvedilol [Coreg] 3.125 mg PO DAILY #30 tab 06/10/17 Clopidogrel [Plavix] 75 mg PO DAILY #30 tab 06/10/17 Metformin HCl [Metformin HCl ER] 500 mg PO BID 07/07/17 - Allergies Allergies/Adverse Reactions: Allergies Allergy/AdvReac Type Severity Reaction Status Date / Time ampicillin Allergy ANAPHYLAXIS Verified 07/07/17 21:49 codeine AdvReac HEADACHE Verified 07/07/17 21:49 Review of Systems ROS Statement: Except As Marked, All Systems Reviewed And Found Negative Constitutional: Negative for: Sweats (no diaphoresis) Cardiovascular: Negative for: Chest Pain (Chest tightness) Respiratory: Positive for: Shortness of Breath, SOB with Exertion, Other ( orthopenea) Gastrointestinal: Negative for: Nausea, Vomiting Physical Exam - Physical Exam Appears: Positive for: Non-toxic, No Acute Distress Head Exam: Positive for: ATRAUMATIC, NORMAL INSPECTION, NORMOCEPHALIC Skin: Positive for: Normal Color, Warm, Dry. Negative for: Rash Eye Exam: Positive for: Normal appearance, EOMI, PERRL. Negative for: Nystagmus ENT: Positive for: Normal ENT Inspection. Negative for: Nasal Congestion, Tonsillar Exudate Neck: Positive for: Normal, Painless ROM, Supple Cardiovascular/Chest: Positive for: Regular Rate, Rhythm, Chest Non Tender. Negative for: Tachycardia Respiratory: Negative for: Normal Breath Sounds (Mild decreased air entry bilaterally), Wheezing, Respiratory Distress Gastrointestinal/Abdominal: Positive for: Normal Exam, Bowel Sounds, Soft. Negative for: Tenderness, Guarding, Rebound Back: Positive for: Normal Inspection. Negative for: L CVA Tenderness, R CVA Tenderness Extremity: Positive for: Normal ROM. Negative for: Tenderness, Deformity, Swelling Neurologic/Psych: Positive for: Alert, Oriented, Gait. Negative for: Motor/ Sensory Deficits - Laboratory Results Result Diagrams: 07/07/17 20:35 07/07/17 20:35 - ECG O2 Sat by Pulse Oximetry: 99 (RA) Pulse Ox Interpretation: Normal Medical Decision Making Medical Decision Makin Initial Impression 71 year old male presenting with shortness of breath in setting of known COPD and coronary disease Initial Plan: * EKG * B-type Natriuretic * CMP * Troponin * CBC * PTT * Prothrombin time * CXR * Albuterol 3mL INH * Solumedrol 125mg IVP * Peak Flow Pre/post * Reevaluation 2215 CXR performed shows mild pulmonary vascular congestion as well as cardiomegaly, COPD and COPD related changes. Labs reviewed show no clinically significant abnormalities with the exception of PROBNP markedly elevated. IV lasix and nitropaste ordered. patient will be placed on observation status for CHF exacerbation and COPD. Case discussed with Dr. Maria - hospitalist. Condition: Fair Documented by Juju fitzgerald acting as a scribe for Omid Baca MD. All medical record entries made by the Scribe were at my direction and personally dictated by me. I have reviewed the chart and agree that the record accurately reflects my personal performance of the history, physical exam, medical decision making, and the department course for this patient. I have also personally directed, reviewed, and agree with the discharge instructions and disposition. Disposition - Clinical Impression Clinical Impression: COPD (chronic obstructive pulmonary disease), CHF (congestive heart failure) - Patient ED Disposition Is Patient to be Admitted: No - Disposition Disposition Time: 21:25 Condition: STABLE - Pt Status Changed To: Hospital Disposition Of: Observation - POA Present On Arrival: None
[2017-07-07 21:11] LABS: INR 1.4 (0.9-1.2); PARTIAL THROMBOPLASTIN TIME 36.1 Seconds (25.6-37.1); PROTHROMBIN TIME 15.4 Seconds (9.8-13.1)
[2017-07-07 21:13] LABS: B-TYPE NATRIURETIC PEPTIDE 8850 pg/ml (0-900)
[2017-07-07] MEDS ORDERED: Nitroglycerin 2% 15 INCH/30 GM TUBE TOP STA (21:39)
[2017-07-07] MEDS ORDERED: Nitroglycerin 2% Ointment Foilpak UD TOP ONE (21:42)
[2017-07-07] MEDS ORDERED: Albuterol-Ipratrop 3 mg / 0.5 (3 ml) UD INH PRN (21:52)
--- NOTE | 2017-07-07 21:56 | CP.PCM.HP ---
History of Present Illness - History of Present Illness History of Present Illness: CC: SOB HPI: This is a 71 y/o male with MHx significant for CAD with multiple stents, CHF (EF 15%), COPD, DM2, HTN, and HLD who comes in w/ worsening SOB. Per patient , he had been doing well since his discharge last month (he was admitted for NSTEMI) overall, but since about yesterday or early this morning noted worsening PIZARRO and even SOB at rest. Denies CP. Denies fever/productive cough. Denies n/v/d. ROS: 14 pt. ROS negative other than HPI. MHx: DM2, CAD with NSTEMI last month, COPD, CHF with EF 15%, HTN, HLD SHx: Coronary stents, eye surgery Allergies: Ampicillin, Codeine Medications: As per med rec Family Hx: Reviewed, no relevant family history Social Hx: Lives alone, no EtOH, smokes ~4 cigs a day now Surrogate dec mkr: Brother, Rodríguez Blakely, Present on Admission - Present on Admission Any Indicators Present on Admission: No Past Patient History - Infectious Disease Hx of Infectious Diseases: None - Tetanus Immunizations Tetanus Immunization: Unknown - Past Medical History & Family History Past Medical History?: Yes - Past Social History Alcohol: None Drugs: Denies - CARDIAC Hx Cardia Arrhythmia: Yes Hx Congestive Heart Failure: Yes Hx Hypercholesterolemia: Yes Hx Hypertension: Yes - PULMONARY Hx Asthma: Yes Hx Bronchitis: No Hx Chronic Obstructive Pulmonary Disease (COPD): Yes Hx Emphysema: Yes - NEUROLOGICAL Hx Multiple Sclerosis: Yes Hx Transient Ischemic Attacks (TIA): Yes - HEENT Hx HEENT Problems: Yes - RENAL Hx Chronic Kidney Disease: No - ENDOCRINE/METABOLIC Hx Endocrine Disorders: Yes Hx Diabetes Mellitus Type 2: Yes - HEMATOLOGICAL/ONCOLOGICAL Hx Human Immunodeficiency Virus (HIV): No - INTEGUMENTARY Hx Dermatological Problems: No - MUSCULOSKELETAL/RHEUMATOLOGICAL Hx Fractures: Yes (b/l feet) - GASTROINTESTINAL Hx Gastrointestinal Disorders: No - GENITOURINARY/GYNECOLOGICAL Hx Genitourinary Disorders: No - PSYCHIATRIC Hx Anxiety: Yes Hx Depression: No - SURGICAL HISTORY Hx Cholecystectomy: Yes Hx Coronary Artery Bypass Graft: No Hx Coronary Stent: Yes (x3) - ANESTHESIA Hx Anesthesia: Yes Hx Anesthesia Reactions: No Hx Malignant Hyperthermia: No Meds Allergies/Adverse Reactions: Allergies Allergy/AdvReac Type Severity Reaction Status Date / Time ampicillin Allergy ANAPHYLAXIS Verified 07/07/17 21:49 codeine AdvReac HEADACHE Verified 07/07/17 21:49 Physical Exam - Constitutional Appears: No Acute Distress, Chronically Ill - Head Exam Head Exam: ATRAUMATIC, NORMOCEPHALIC - Eye Exam Eye Exam: EOMI, PERRL - ENT Exam ENT Exam: Mucous Membranes Moist - Neck Exam Neck exam: Positive for: Full Rom - Respiratory Exam Additional comments: crackles b/l midway up lung field - Cardiovascular Exam Cardiovascular Exam: REGULAR RHYTHM, +S1, +S2 - GI/Abdominal Exam GI & Abdominal Exam: Normal Bowel Sounds, Soft - Extremities Exam Extremities exam: Positive for: full ROM, normal inspection - Neurological Exam Neurological exam: Alert, CN II-XII Intact, Oriented x3 - Psychiatric Exam Psychiatric exam: Normal Affect, Normal Mood - Skin Skin Exam: Dry, Warm Results - Vital Signs Recent Vital Signs: Last Vital Signs Temp 97 F L 07/07/17 20:11 Pulse 96 H 07/07/17 20:11 Resp 20 07/07/17 20:15 BP 130/72 07/07/17 21:43 Pulse Ox 99 07/07/17 21:17 - Labs Result Diagrams: 07/07/17 20:35 07/07/17 20:35 Labs: Laboratory Results - last 24 hr 07/07/17 07/07/17 07/07/17 20:35 20:35 20:35 WBC 10.7 D RBC 4.16 L Hgb 13.1 Hct 39.2 MCV 94.1 H D MCH 31.6 H MCHC 33.5 RDW 13.8 Plt Count 202 MPV 8.5 Neut % (Auto) 69.5 Lymph % (Auto) 19.8 L [place] % (Auto) 6.8 Eos % (Auto) 3.6 Baso % (Auto) 0.3 Neut # 7.4 H Lymph # 2.1 [place] # 0.7 Eos # 0.4 Baso # 0.0 PT 15.4 H INR 1.4 H APTT 36.1 Sodium 138 Potassium 3.6 Chloride 103 Carbon Dioxide 24 Anion Gap 15 BUN 8 L Creatinine 0.9 Est GFR ( Amer) > 60 Est GFR (Non-Af Amer) > 60 Random Glucose 219 H Calcium 9.1 Total Bilirubin 0.3 AST 26 ALT 29 Alkaline Phosphatase 63 Troponin I 0.0490 NT-Pro-B Natriuret Pep 8850 H Total Protein 7.1 Albumin 3.7 Globulin 3.4 Albumin/Globulin Ratio 1.1 - EKG Data EKG Interpreted by: Myself EKG shows normal: Sinus rhythm Rate: Normal - EKG Data EKG comments: L axis dev, IVCD likely LBBB - Imaging and Cardiology Chest x-ray Additional comment: globular appearing heart, ? vol overload Assessment & Plan (1) CHF (congestive heart failure) Assessment and Plan: 69 y/o male with known CAD, CHF, HTN, HLD, DM2, and BPH who comes in to the ER with SOB/PIZARRO and signs of vol overload. 1) Cardiac -- CHF (also Hx of CAD, HTN, HLD) -Admit tele -Serial trops -Lasix 40 mg IV q12h -Cont home medications for CAD/HTN/HLD -Cardiology consult with Harsh 2) COPD -- symptoms appear to be more consistent with vol o/l rather than COPD this admission -PRN duonebs -Will not give any abx or further steroids unless there are changes in condition 3) DM2 -DM diet -ACHS Accucheck with SSI 4) DVT PPx - SQ Lovenox Status: Chronic (2) COPD (chronic obstructive pulmonary disease) Status: Chronic Priority: Low (3) DM2 (diabetes mellitus, type 2) Status: Chronic Priority: Low (4) HTN (hypertension) Status: Chronic Priority: Low (5) DVT prophylaxis Status: Acute
[2017-07-07] MEDS: Insulin Lispro (humaLOG) 100 Units/ml Inj SC SCH (23:13)
[2017-07-08 05:26] LABS: BASO # 0.1 K/uL (0.0-0.2); BASO % 0.8 % (0.0-2.0); EOS % 0.1 % (0.0-4.0); HEMOGLOBIN 13.2 g/dL (12.0-18.0); LYMPH # 0.7 K/uL (1.0-4.3); LYMPH % 9.6 % (20.0-40.0); MEAN CELL VOLUME 93.6 fl (80.0-94.0); MEAN CORPUSCULAR HEMOGLOBIN 31.8 pg (27.0-31.0); MEAN CORPUSCULAR HGB CONC 33.9 g/dL (33.0-37.0); MONO # 0.1 K/uL (0.0-0.8); MONO % 0.9 % (0.0-10.0); NEUT # 6.1 K/uL (1.8-7.0); NEUT % 88.6 % (50.0-75.0); PLATELET COUNT 189 K/uL (130-400); RBC 4.16 Mil/uL (4.40-5.90); RED CELL DISTRIBUTION WIDTH 13.6 % (11.5-14.5); WHITE BLOOD COUNT 6.9 K/uL (4.8-10.8)
[2017-07-08 05:32] LABS: BLOOD UREA NITROGEN 9 mg/dl (9-20); CALCIUM 9.4 mg/dL (8.4-10.2); GFR AFRICAN-AMERICAN > 60; GFR NON-AFRICAN AMERICAN > 60
--- NOTE | 2017-07-08 08:27 | CP.PCM.PN ---
Subjective - Date & Time of Evaluation Date of Evaluation: 07/08/17 Time of Evaluation: 10:00 - Subjective Subjective: Patient seen and examined . Feeling a little better .Denies any chest pain or palpitations. Presented with worsening dyspnea Objective - Vital Signs/Intake and Output Vital Signs (last 24 hours): Temp Pulse Resp BP Pulse Ox 98.1 F 65 20 124/63 98 07/08/17 08:06 07/08/17 08:06 07/08/17 08:06 07/08/17 08:06 07/08/17 08:06 Intake and Output: 07/08/17 07/08/17 06:59 18:59 Intake Total 200 Output Total 1200 Balance -1000 - Medications Medications: Current Medications Acetaminophen (Tylenol 325mg Tab) 650 mg PO Q6 PRN PRN Reason: Pain, Mild (1-3) Albuterol/Ipratropium (Duoneb 3 Mg/0.5 Mg (3 Ml) Ud) 3 ml INH RQ6 PRN PRN Reason: Shortness of Breath Aspirin (Ecotrin) 81 mg PO DAILY [facility] Atorvastatin Calcium (Lipitor) 20 mg PO DAILY [facility] Carvedilol (Coreg) 3.125 mg PO DAILY [facility] Clopidogrel Bisulfate (Plavix) 75 mg PO DAILY [facility]ID Enoxaparin Sodium (Lovenox) 40 mg SC DAILY DAVID PRN Reason: Protocol Furosemide (Lasix) 40 mg IVP BID [facility] Insulin Human Lispro (Humalog) 0 units SC ACHS DAVID PRN Reason: Protocol Last Admin: 07/07/17 23:13 Dose: Not Given Sertraline HCl (Zoloft) 50 mg PO DAILY [facility] Tamsulosin HCl (Flomax) 0.4 mg PO DAILY [facility] Tramadol HCl (Ultram) 50 mg PO TID PRN PRN Reason: Pain, moderate (4-7) - Labs Labs: 07/08/17 04:20 07/08/17 04:20 PT 15.4 Seconds (9.8-13.1) H 07/07/17 20:35 INR 1.4 (0.9-1.2) H 07/07/17 20:35 APTT 36.1 Seconds (25.6-37.1) 07/07/17 20:35 - Constitutional Appears: Non-toxic, No Acute Distress, Cachectic, Chronically Ill - Head Exam Head Exam: ATRAUMATIC, NORMAL INSPECTION, NORMOCEPHALIC - Eye Exam Eye Exam: EOMI, Normal appearance, PERRL Pupil Exam: NORMAL ACCOMODATION - ENT Exam ENT Exam: Mucous Membranes Moist, Normal Exam - Neck Exam Neck Exam: Full ROM, Normal Inspection - Respiratory Exam Respiratory Exam: Decreased Breath Sounds (bibasilar rales), Prolonged Expiratory Phase. absent: Clear to Ausculation Bilateral, Rhonchi, Wheezes, Respiratory Distress - Cardiovascular Exam Cardiovascular Exam: REGULAR RHYTHM, RRR, +S1, +S2. absent: JVD - GI/Abdominal Exam GI & Abdominal Exam: Soft, Normal Bowel Sounds. absent: Distended, Guarding, Tenderness, Rebound - Rectal Exam Rectal Exam: Deferred - Extremities Exam Extremities Exam: Full ROM, Normal Capillary Refill, Normal Inspection. absent : Pedal Edema - Back Exam Back Exam: NORMAL INSPECTION - Neurological Exam Neurological Exam: Alert, Awake, CN II-XII Intact, Oriented x3 - Psychiatric Exam Psychiatric exam: Normal Affect, Normal Mood - Skin Skin Exam: Dry, Normal Color, Warm Assessment and Plan - Assessment and Plan (Free Text) Assessment: 71 y/o male with MHx significant for CAD with stents, CHF (EF 15%), COPD, DM2, HTN, and HLD came in with worsening SOB. He wsa recentlyy diagnosed with NSTEMI but refused cardiac catheterization and wsa discharge home on medical management.Per patient, he had been doing well since his discharge last month but since about yesterday or early this morning noted worsening PIZARRO and even SOB at rest. Denies CP. Denies fever/productive cough. Denies n/v/d. ProBNP was .>8000 CXR showed no active disease 1.Acute CHF exacerbation , systolic dysfunction Last Echo EF 15 % Probnp > 8000 Continue tele monitor Trop x2 negative so far , chest pain free on lasix 40 mg IV q12h Cardiology consulted Dr. House Continue ASA, plaxix, statin, Carvedilol 2.COPD --stable symptoms appear to be more consistent with vol o/l rather than COPD this admission PRN duonebs -Will not give any abx or further steroids unless there are changes in condition 3.DM type II DM diet ACHS Accucheck with SSI 4. CAD / history of stent , recent NSTEMI trop x 2 negative Continue ASA, statin, Plavix, Coreg 5.BPH on flomax 6. Cachetic BMI 19 7. DVT PPx SQ Lovenox
[2017-07-08] MEDS: Enoxaparin 40 mg Syringe SC SCH (09:12)
[2017-07-08] MEDS: Insulin Lispro (humaLOG) 100 Units/ml Inj SC SCH ×4 (09:13→21:49)
[2017-07-08 10:40] LABS: BASOPHIL 1 % (0-2); LYMPHOCYTE 8 % (20-50); MONOCYTE 1 % (0-10); NEUTROPHIL 89 % (42-75); PLATELET ESTIMATE NORMAL (NORMAL); REACTIVE LYMPHOCYTES 1 % (0-0); TOTAL CELLS COUNTED 100
--- NOTE | 2017-07-08 11:07 | RAD ---
HISTORY: chest pain COMPARISON: 06/06/2017 FINDINGS: LUNGS: No active pulmonary disease. PLEURA: No significant pleural effusion identified, no pneumothorax apparent. CARDIOVASCULAR: No radiographic findings to suggest acute or significant cardiovascular disease. OSSEOUS STRUCTURES: No significant abnormalities. VISUALIZED UPPER ABDOMEN: Normal. OTHER FINDINGS: None. IMPRESSION: No active disease. No significant interval change compared to the prior examination(s). Concordant results with the preliminary interpretation rendered by the emergency department physician procedure.
--- NOTE | 2017-07-08 16:51 | CARD ---
APPROVED REPORT EKG Measurement Heart [id number] IL [id number] <Conclusion> Normal sinus rhythm Left axis deviation Left ventricular hypertrophy with QRS widening and repolarization abnormality Cannot rule out Anteroseptal infarct, age undetermined Consider lateral ischemia Abnormal ECG
--- NOTE | 2017-07-08 17:27 | CP.PCM.CON ---
History of Present Illness - History of Present Illness History of Present Illness: THE PATIENT IS A 71 YEAR OLD MALE WHO HAS A HISTORY OF CAD, HYPERTENSION, HYPERLIPIDEMIA, COPD, DM AND DEPRESSION. ABOUT 4 YEARS AGO HE HAD AN ACUTE AWMI AND CAME TO THE ER AND A [facility] WAS CALLED AND HE WAS SENT DIRECTLY TO [facility] AND A CORONARY STENT WAS INSERTED. HE HAD A LVEF OF ABOUT 40% AT THAT TIME. LAST MONTH HE CAME TO THE ER WITH A NSTEMI BUT DUE TO HIS CONTINUED CHEST PAIN ARRANGEMENTS WERE MADE FOR AN IMMEDIATE TRANSFER TO [place] FOR A CARDIAC CATH AND POSSIBLE STENT INSERTION BUT BE ABSOLUTELY REFUSED DESPITE THE URGING OF PHYSICIANS INCLUDING MYSELF. HIS LVEF AT THAT TIME DECREASED TO 15%. HE NOW STATES THAT HE STARTED GETTING SOB ON SATURDAY BUT YESTERDAY HE BEGAN GETTING SOB WITH MINIMAL EXERTION AND SINCE IT LASTED ALL DAY HE WENT TO THE ER LAST NIGHT AND WAS DIAGNOSED WITH CHF AND ADMITTED. CARDIOLOGY WAS CALLED TO SEE HIM. HE HAD BRIEF CHEST TIGHTNESS BUT NO PROLONGED TYPICAL PAIN. HE DENIES WHEEZING, FEVERS OR CHILLS. HE HAD A MILD COUGH BUT NO SPUTUM PRODUCTION. HE ADMITS TO DRINKING MORE FLUIDS THAN HE WAS ADVISED. Past Patient History - Infectious Disease Hx of Infectious Diseases: None - Tetanus Immunizations Tetanus Immunization: Unknown - Past Medical History & Family History Past Medical History?: Yes - Past Social History Alcohol: None Drugs: Denies - CARDIAC Hx Cardia Arrhythmia: Yes Hx Congestive Heart Failure: Yes Hx Hypercholesterolemia: Yes Hx Hypertension: Yes - PULMONARY Hx Asthma: Yes Hx Bronchitis: No Hx Chronic Obstructive Pulmonary Disease (COPD): Yes Hx Emphysema: Yes - NEUROLOGICAL Hx Multiple Sclerosis: Yes Hx Transient Ischemic Attacks (TIA): Yes - HEENT Hx HEENT Problems: Yes - RENAL Hx Chronic Kidney Disease: No - ENDOCRINE/METABOLIC Hx Endocrine Disorders: Yes Hx Diabetes Mellitus Type 2: Yes - HEMATOLOGICAL/ONCOLOGICAL Hx Human Immunodeficiency Virus (HIV): No - INTEGUMENTARY Hx Dermatological Problems: No - MUSCULOSKELETAL/RHEUMATOLOGICAL Hx Fractures: Yes (b/l feet) - GASTROINTESTINAL Hx Gastrointestinal Disorders: No - GENITOURINARY/GYNECOLOGICAL Hx Genitourinary Disorders: No - PSYCHIATRIC Hx Anxiety: Yes Hx Depression: No - SURGICAL HISTORY Hx Cholecystectomy: Yes Hx Coronary Artery Bypass Graft: No Hx Coronary Stent: Yes (x3) - ANESTHESIA Hx Anesthesia: Yes Hx Anesthesia Reactions: No Hx Malignant Hyperthermia: No Meds Allergies/Adverse Reactions: Allergies Allergy/AdvReac Type Severity Reaction Status Date / Time ampicillin Allergy ANAPHYLAXIS Verified 07/07/17 21:49 codeine AdvReac HEADACHE Verified 07/07/17 21:49 - Medications Medications: Current Medications Acetaminophen (Tylenol 325mg Tab) 650 mg PO Q6 PRN PRN Reason: Pain, Mild (1-3) Albuterol/Ipratropium (Duoneb 3 Mg/0.5 Mg (3 Ml) Ud) 3 ml INH RQ6 PRN PRN Reason: Shortness of Breath Aspirin (Ecotrin) 81 mg PO DAILY [facility] Last Admin: 07/08/17 09:12 Dose: 81 mg Atorvastatin Calcium (Lipitor) 20 mg PO DAILY [facility] Last Admin: 07/08/17 09:12 Dose: 20 mg Carvedilol (Coreg) 3.125 mg PO DAILY [facility] Last Admin: 07/08/17 09:12 Dose: 3.125 mg Clopidogrel Bisulfate (Plavix) 75 mg PO DAILY [facility] Last Admin: 07/08/17 09:13 Dose: 75 mg Enoxaparin Sodium (Lovenox) 40 mg SC DAILY [facility] PRN Reason: Protocol Last Admin: 07/08/17 09:12 Dose: 40 mg Furosemide (Lasix) 40 mg IVP BID [facility] Last Admin: 07/08/17 16:33 Dose: 40 mg Insulin Human Lispro (Humalog) 0 units SC ACHS [facility] PRN Reason: Protocol Last Admin: 07/08/17 16:31 Dose: Not Given Sertraline HCl (Zoloft) 50 mg PO DAILY [facility] Last Admin: 07/08/17 09:12 Dose: 50 mg Tamsulosin HCl (Flomax) 0.4 mg PO DAILY [facility] Last Admin: 07/08/17 09:13 Dose: 0.4 mg Tramadol HCl (Ultram) 50 mg PO TID PRN PRN Reason: Pain, moderate (4-7) Last Admin: 07/08/17 10:36 Dose: 50 mg Physical Exam - Respiratory Exam Respiratory Exam: Rales - Cardiovascular Exam Cardiovascular Exam: REGULAR RHYTHM, +S1, +S2 - Extremities Exam Additional comments: NO SIGNIFICANT LE EDEMA - Additional Findings Additional findings: EKG NSR, OLD AWMI PBNP 8850 TROPONINS NORMAL X 3 CXY WITH CHRONIC CHANGES, NO PULMONARY EDEMA Results - Vital Signs Recent Vital Signs: Last Vital Signs Temp 98.6 F 07/08/17 15:48 Pulse 71 07/08/17 15:48 Resp 17 07/08/17 15:48 BP 107/65 07/08/17 16:33 Pulse Ox 97 07/08/17 15:48 - Labs Result Diagrams: 07/08/17 04:20 07/08/17 04:20 Labs: Laboratory Results - last 24 hr 07/07/17 07/07/17 07/07/17 20:35 20:35 20:35 WBC 10.7 D RBC 4.16 L Hgb 13.1 Hct 39.2 MCV 94.1 H D MCH 31.6 H MCHC 33.5 RDW 13.8 Plt Count 202 MPV 8.5 Neut % (Auto) 69.5 Lymph % (Auto) 19.8 L Nance % (Auto) 6.8 Eos % (Auto) 3.6 Baso % (Auto) 0.3 Neut # 7.4 H Lymph # 2.1 Nance # 0.7 Eos # 0.4 Baso # 0.0 Neutrophils % (Manual) Lymphocytes % (Manual) Reactive Lymphs % Monocytes % (Manual) Basophils % (Manual) Platelet Estimate RBC Morphology PT 15.4 H INR 1.4 H APTT 36.1 Sodium 138 Potassium 3.6 Chloride 103 Carbon Dioxide 24 Anion Gap 15 BUN 8 L Creatinine 0.9 Est GFR ( Amer) > 60 Est GFR (Non-Af Amer) > 60 POC Glucose (mg/dL) Random Glucose 219 H Calcium 9.1 Total Bilirubin 0.3 AST 26 ALT 29 Alkaline Phosphatase 63 Troponin I 0.0490 NT-Pro-B Natriuret Pep 8850 H Total Protein 7.1 Albumin 3.7 Globulin 3.4 Albumin/Globulin Ratio 1.1 07/07/17 07/08/17 07/08/17 22:56 04:20 04:20 WBC 6.9 RBC 4.16 L Hgb 13.2 Hct 39.0 MCV 93.6 MCH 31.8 H MCHC 33.9 RDW 13.6 Plt Count 189 MPV 9.0 Neut % (Auto) 88.6 H Lymph % (Auto) 9.6 L Nance % (Auto) 0.9 Eos % (Auto) 0.1 Baso % (Auto) 0.8 Neut # 6.1 Lymph # 0.7 L Nance # 0.1 Eos # 0.0 Baso # 0.1 Neutrophils % (Manual) 89 H Lymphocytes % (Manual) 8 L Reactive Lymphs % 1 H Monocytes % (Manual) 1 Basophils % (Manual) 1 Platelet Estimate Normal RBC Morphology Normal PT INR APTT Sodium 139 Potassium 3.8 Chloride 102 Carbon Dioxide 24 Anion Gap 17 BUN 9 Creatinine 0.9 Est GFR ( Amer) > 60 Est GFR (Non-Af Amer) > 60 POC Glucose (mg/dL) 204 H Random Glucose 247 H Calcium 9.4 Total Bilirubin AST ALT Alkaline Phosphatase Troponin I 0.0660 NT-Pro-B Natriuret Pep Total Protein Albumin Globulin Albumin/Globulin Ratio 07/08/17 07/08/17 07/08/17 04:49 11:02 14:01 WBC RBC Hgb Hct MCV MCH MCHC RDW Plt Count MPV Neut % (Auto) Lymph % (Auto) Nance % (Auto) Eos % (Auto) Baso % (Auto) Neut # Lymph # Nance # Eos # Baso # Neutrophils % (Manual) Lymphocytes % (Manual) Reactive Lymphs % Monocytes % (Manual) Basophils % (Manual) Platelet Estimate RBC Morphology PT INR APTT Sodium Potassium Chloride Carbon Dioxide Anion Gap BUN Creatinine Est GFR ( Amer) Est GFR (Non-Af Amer) POC Glucose (mg/dL) 208 H 232 H Random Glucose Calcium Total Bilirubin AST ALT Alkaline Phosphatase Troponin I 0.0520 NT-Pro-B Natriuret Pep Total Protein Albumin Globulin Albumin/Globulin Ratio 07/08/17 15:59 WBC RBC Hgb Hct MCV MCH MCHC RDW Plt Count MPV Neut % (Auto) Lymph % (Auto) Nance % (Auto) Eos % (Auto) Baso % (Auto) Neut # Lymph # Nance # Eos # Baso # Neutrophils % (Manual) Lymphocytes % (Manual) Reactive Lymphs % Monocytes % (Manual) Basophils % (Manual) Platelet Estimate RBC Morphology PT INR APTT Sodium Potassium Chloride Carbon Dioxide Anion Gap BUN Creatinine Est GFR ( Amer) Est GFR (Non-Af Amer) POC Glucose (mg/dL) 120 H Random Glucose Calcium Total Bilirubin AST ALT Alkaline Phosphatase Troponin I NT-Pro-B Natriuret Pep Total Protein Albumin Globulin Albumin/Globulin Ratio Assessment & Plan - Assessment and Plan (Free Text) Assessment: ACUTE SYSTOLIC CHF WITH LVEF OF 15% AND NON-COMPLIANCE WITH FLUID RESTRICTION CAD WITH OLD AWMI WITH STENT INSERTION AND NSTEMI LAST MONTH HYPERTENSION COPD DM DEPRESSION Plan: THE PATIENT WAS ADMITTED TO 4N ON TELEMETRY O2, IV FUROSEMIDE, CARVEDILOL, NITRATES, ATORVASTATIN, ASPIRIN, CLOPIDOGREL, LOVENOX, ZOLOFT, ROBITUSSIN ROUTINE CHF ORDERS NOTE: ELINA INHIBITORS NOT GIVEN THEY CAUSED HYPOTENSION ON LAST ADMISSION
[2017-07-08] MEDS ORDERED: guaiFENesin 100 mg/5 ml Syrup UD PO PRN (17:38)
[2017-07-08] MEDS: Nitroglycerin 2% Ointment Foilpak UD TOP SCH (21:12)
[2017-07-09] MEDS: Nitroglycerin 2% Ointment Foilpak UD TOP SCH ×4 (04:39→22:12)
[2017-07-09 05:07] LABS: MEAN CELL VOLUME 93.8 fl (80.0-94.0); MEAN CORPUSCULAR HEMOGLOBIN 30.9 pg (27.0-31.0); MEAN CORPUSCULAR HGB CONC 32.9 g/dL (33.0-37.0); RBC 4.2 Mil/uL (4.40-5.90); RED CELL DISTRIBUTION WIDTH 13.9 % (11.5-14.5); WHITE BLOOD COUNT 13.1 K/uL (4.8-10.8)
[2017-07-09 05:31] LABS: B-TYPE NATRIURETIC PEPTIDE 7150 pg/ml (0-900)
[2017-07-09 05:34] LABS: BLOOD UREA NITROGEN 24 mg/dl (9-20); CALCIUM 9.6 mg/dL (8.4-10.2); GFR AFRICAN-AMERICAN > 60; GFR NON-AFRICAN AMERICAN > 60
[2017-07-09] MEDS: Insulin Lispro (humaLOG) 100 Units/ml Inj SC SCH ×4 (08:29→22:10)
[2017-07-09] MEDS: Enoxaparin 40 mg Syringe SC SCH (08:31)
--- NOTE | 2017-07-09 09:19 | CP.PCM.PN ---
Subjective - Date & Time of Evaluation Date of Evaluation: 07/09/17 Time of Evaluation: 09:00 - Subjective Subjective: No fever still with SOB magda on exertion no CP + cough- some dark phlegm no wheezing no abd pain Objective - Vital Signs/Intake and Output Vital Signs (last 24 hours): Temp Pulse Resp BP Pulse Ox 97.9 F 75 20 111/67 100 07/09/17 08:05 07/09/17 08:30 07/09/17 08:05 07/09/17 08:30 07/09/17 08:05 Intake and Output: 07/09/17 07/09/17 06:59 18:59 Intake Total 240 Balance 240 - Medications Medications: Current Medications Acetaminophen (Tylenol 325mg Tab) 650 mg PO Q6 PRN PRN Reason: Pain, Mild (1-3) Albuterol/Ipratropium (Duoneb 3 Mg/0.5 Mg (3 Ml) Ud) 3 ml INH RQ6 PRN PRN Reason: Shortness of Breath Aspirin (Ecotrin) 81 mg PO DAILY [facility] Last Admin: 07/09/17 08:30 Dose: 81 mg Atorvastatin Calcium (Lipitor) 20 mg PO DAILY [facility] Last Admin: 07/09/17 08:31 Dose: 20 mg Carvedilol (Coreg) 3.125 mg PO DAILY [facility] Last Admin: 07/09/17 08:30 Dose: 3.125 mg Clopidogrel Bisulfate (Plavix) 75 mg PO DAILY [facility] Last Admin: 07/09/17 08:32 Dose: 75 mg Enoxaparin Sodium (Lovenox) 40 mg SC DAILY [facility] PRN Reason: Protocol Last Admin: 07/09/17 08:31 Dose: 40 mg Furosemide (Lasix) 40 mg IVP BID [facility] Last Admin: 07/09/17 08:30 Dose: 40 mg Guaifenesin (Robitussin) 100 mg PO Q6 PRN PRN Reason: Cough Last Admin: 07/08/17 21:12 Dose: 100 mg Insulin Human Lispro (Humalog) 0 units SC ACHS [facility] PRN Reason: Protocol Last Admin: 07/09/17 08:29 Dose: Not Given Nitroglycerin (Nitro-Bid 2% Oint) 0.5 ea TOP Q6 [facility] Last Admin: 07/09/17 04:39 Dose: 0.5 ea Sertraline HCl (Zoloft) 50 mg PO DAILY [facility] Last Admin: 07/09/17 08:31 Dose: 50 mg Tamsulosin HCl (Flomax) 0.4 mg PO DAILY [facility] Last Admin: 07/09/17 08:30 Dose: 0.4 mg Tramadol HCl (Ultram) 50 mg PO TID PRN PRN Reason: Pain, moderate (4-7) Last Admin: 07/09/17 01:05 Dose: 50 mg - Labs Labs: 07/09/17 04:20 07/09/17 04:20 PT 15.4 Seconds (9.8-13.1) H 07/07/17 20:35 INR 1.4 (0.9-1.2) H 07/07/17 20:35 APTT 36.1 Seconds (25.6-37.1) 07/07/17 20:35 - Constitutional Appears: No Acute Distress - Head Exam Head Exam: NORMAL INSPECTION, NORMOCEPHALIC - Eye Exam Eye Exam: EOMI, Normal appearance Pupil Exam: NORMAL ACCOMODATION - ENT Exam ENT Exam: Mucous Membranes Moist, Normal External Ear Exam - Respiratory Exam Respiratory Exam: Decreased Breath Sounds, Rales, NORMAL BREATHING PATTERN. absent: Chest Wall Tenderness, Wheezes, Respiratory Distress, Stridor - Cardiovascular Exam Cardiovascular Exam: REGULAR RHYTHM, +S1, +S2. absent: JVD - GI/Abdominal Exam GI & Abdominal Exam: Soft, Normal Bowel Sounds. absent: Tenderness - Extremities Exam Extremities Exam: Full ROM, Normal Capillary Refill. absent: Calf Tenderness, Pedal Edema - Back Exam Back Exam: Full ROM. absent: CVA tenderness (L), CVA tenderness (R), paraspinal tenderness - Neurological Exam Neurological Exam: Alert, Awake, CN II-XII Intact, Oriented x3 - Psychiatric Exam Psychiatric exam: Normal Affect, Normal Mood - Skin Skin Exam: Dry, Normal Color, Warm Assessment and Plan - Assessment and Plan (Free Text) Assessment: 71 y/o male with MHx significant for CAD with stents, CHF (EF 15%), COPD, DM2, HTN, and HLD came in with worsening SOB. He was dx with NSTEMI in May but refused cardiac catheterization and was discharge home on medical management. He had been doing well since his discharge last month on day of admission, he noted worsening PIZARRO and even SOB at rest. Denies CP. Denies fever/productive cough. Denies n/v/d. ProBNP was >8000 . CXR showed no active disease 1.Acute CHF exacerbation , systolic dysfunction Last Echo EF 15 % Probnp > 8000 Continue tele monitor Trop x2 negative so far , chest pain free on lasix 40 mg IV q12h Cardiology consulted Dr. House Continue ASA, plaxix, statin, Carvedilol 2.COPD , chronic symptoms appear to be more consistent with pulm vascular congestion however pt has cough, decrease BS on exam PRN duonebs -will hold off abx or further steroids unless there are changes in condition - Pulm consult 3.DM type II DM diet ACHS Accucheck with SSI 4. CAD / history of stent , recent NSTEMI trop x 3 negative Continue ASA, statin, Plavix, Coreg 5.BPH on flomax 6. Cachetic BMI 19 7. Physical DEconditioning - Physical therapy consult DVT PPx SQ Lovenox
--- NOTE | 2017-07-09 11:19 | CP.PCM.PN ---
Subjective - Date & Time of Evaluation Date of Evaluation: 07/09/17 Time of Evaluation: 10:30 - Subjective Subjective: BREATHING A LITTLE BETTER BUT STILL NOT AT BASELINE Objective - Vital Signs/Intake and Output Vital Signs (last 24 hours): Temp Pulse Resp BP Pulse Ox 97.9 F 75 20 111/67 100 07/09/17 08:05 07/09/17 10:04 07/09/17 08:05 07/09/17 10:04 07/09/17 08:05 Intake and Output: 07/09/17 07/09/17 06:59 18:59 Intake Total 240 Balance 240 - Medications Medications: Current Medications Acetaminophen (Tylenol 325mg Tab) 650 mg PO Q6 PRN PRN Reason: Pain, Mild (1-3) Albuterol/Ipratropium (Duoneb 3 Mg/0.5 Mg (3 Ml) Ud) 3 ml INH RQ6 PRN PRN Reason: Shortness of Breath Aspirin (Ecotrin) 81 mg PO DAILY [facility] Last Admin: 07/09/17 08:30 Dose: 81 mg Atorvastatin Calcium (Lipitor) 20 mg PO DAILY [facility] Last Admin: 07/09/17 08:31 Dose: 20 mg Carvedilol (Coreg) 3.125 mg PO DAILY [facility] Last Admin: 07/09/17 08:30 Dose: 3.125 mg Clopidogrel Bisulfate (Plavix) 75 mg PO DAILY [facility] Last Admin: 07/09/17 08:32 Dose: 75 mg Enoxaparin Sodium (Lovenox) 40 mg SC DAILY [facility] PRN Reason: Protocol Last Admin: 07/09/17 08:31 Dose: 40 mg Furosemide (Lasix) 40 mg IVP BID [facility] Last Admin: 07/09/17 08:30 Dose: 40 mg Guaifenesin (Robitussin) 100 mg PO Q6 PRN PRN Reason: Cough Last Admin: 07/08/17 21:12 Dose: 100 mg Insulin Human Lispro (Humalog) 0 units SC [facility] PRN Reason: Protocol Last Admin: 07/09/17 08:29 Dose: Not Given Nitroglycerin (Nitro-Bid 2% Oint) 0.5 ea TOP Q6 [facility] Last Admin: 07/09/17 10:04 Dose: 0.5 ea Sertraline HCl (Zoloft) 50 mg PO DAILY [facility] Last Admin: 07/09/17 08:31 Dose: 50 mg Tamsulosin HCl (Flomax) 0.4 mg PO DAILY [facility] Last Admin: 07/09/17 08:30 Dose: 0.4 mg Tramadol HCl (Ultram) 50 mg PO TID PRN PRN Reason: Pain, moderate (4-7) Last Admin: 07/09/17 10:02 Dose: 50 mg - Labs Labs: 07/09/17 04:20 07/09/17 04:20 PT 15.4 Seconds (9.8-13.1) H 07/07/17 20:35 INR 1.4 (0.9-1.2) H 07/07/17 20:35 APTT 36.1 Seconds (25.6-37.1) 07/07/17 20:35 - Respiratory Exam Additional comments: MILD RALES AT THE BASES NO WHEEZING - Cardiovascular Exam Cardiovascular Exam: REGULAR RHYTHM, +S1, +S2 - Extremities Exam Additional comments: NO SIGNIFICANT LE EDEMA Assessment and Plan - Assessment and Plan (Free Text) Assessment: ACUTE SYSTOLIC CHF HYPERTENSION HYPERLIPIDEMIA COPD Plan: CONTINUE O2, IV FUROSEMIDE, CARVEDILOL, NITROPASTE, ASPIRIN, CLOPIDOGREL, BRONCHODILATORS, ROBITUSSIN PULMONARY TO SEE PT TO EVALUATE-MAY BE A GOOD CANDIDATE FOR TCU DUE TO DECONDITIONING
--- NOTE | 2017-07-09 11:28 | CP.PCM.CON ---
History of Present Illness - History of Present Illness History of Present Illness: This 71-year-old white male who has an underlying history of long-standing chronic obstructive lung disease as well as coronary artery disease presented with a history of worsening shortness of breath which was occurring with minimal activity as well as at rest. He attempted to stay at home for the first few days but finally came to the emergency department when his symptoms did not subside. He denied fever, chills and sweats. He does have chronic cough, but there has been no change in the character of the cough and only has occasional mucoid sputum production. He was complaining of left posterior chest pain but had no complaint of hemoptysis. A chest x-ray done on admission showed no evidence of any acute pneumonic infiltrates or pleural effusions. Review of Systems - Review of Systems All systems: reviewed and no additional remarkable complaints except - Constitutional Constitutional: Fatigue, Weight Gain - Cardiovascular Cardiovascular: Dyspnea on Exertion - Respiratory Respiratory: Dyspnea - Musculoskeletal Musculoskeletal: Limited Range of Motion, Muscle Weakness Past Patient History - Infectious Disease Hx of Infectious Diseases: None - Tetanus Immunizations Tetanus Immunization: Unknown - Past Medical History & Family History Past Medical History?: Yes Past Family History: Reviewed and not pertinent - Past Social History Smoking Status: Light Smoker < 10 Cigarettes Daily Chewing Tobacco Use: No Cigar Use: No Alcohol: None Drugs: Denies Home Situation {Lives}: Alone - CARDIAC Hx Cardia Arrhythmia: Yes Hx Congestive Heart Failure: Yes Hx Hypercholesterolemia: Yes Hx Hypertension: Yes - PULMONARY Hx Asthma: Yes Hx Bronchitis: Yes Hx Chronic Obstructive Pulmonary Disease (COPD): Yes - NEUROLOGICAL Hx Multiple Sclerosis: Yes Hx Transient Ischemic Attacks (TIA): Yes Other/Comment: restless leg syndrome - HEENT Hx Cataracts: Yes - RENAL Hx Chronic Kidney Disease: No - ENDOCRINE/METABOLIC Hx Diabetes Mellitus Type 2: Yes - HEMATOLOGICAL/ONCOLOGICAL Hx Blood Disorders: No Hx Human Immunodeficiency Virus (HIV): No - INTEGUMENTARY Hx Dermatological Problems: No - MUSCULOSKELETAL/RHEUMATOLOGICAL Hx Back Pain: Yes Hx Falls: Yes Hx Fractures: Yes (b/l feet) - GASTROINTESTINAL Hx Gastrointestinal Disorders: No - GENITOURINARY/GYNECOLOGICAL Hx Genitourinary Disorders: No - PSYCHIATRIC Hx Anxiety: Yes Hx Depression: No Hx Substance Use: No - SURGICAL HISTORY Hx Cholecystectomy: Yes Hx Coronary Stent: Yes (x3) - ANESTHESIA Hx Anesthesia: Yes Hx Anesthesia Reactions: No Hx Malignant Hyperthermia: No Meds Home Medications: Home Medication List Medication Instructions Recorded Confirmed Type Acetaminophen [Tylenol 325mg tab] 650 mg PO Q6 PRN tab 07/10/17 Rx Digoxin [Lanoxin] 0.125 mg PO DAILY tab 07/10/17 Rx Enoxaparin [Lovenox] 40 mg SC DAILY syr 07/10/17 Rx Furosemide [Lasix] 40 mg IVP BID vial 07/10/17 Rx Ipratropium 0.02% [Atrovent] 0.5 mg IH RQ6 neb 07/10/17 Rx Lactulose [Enulose] 20 gm PO DAILY PRN udc 07/10/17 Rx Levalbuterol [Xopenex] 1.25 mg INH RQ8 PRN neb 07/10/17 Rx Nitroglycerin 2% [Nitro-Bid 2% 0.5 ea TOP Q6 fp 07/10/17 Rx Oint] Valsartan [Diovan] 40 mg PO DAILY #1 tablet 07/10/17 Rx guaiFENesin [Robitussin] 100 mg PO Q6 PRN udc 07/10/17 Rx Allergies/Adverse Reactions: Allergies Allergy/AdvReac Type Severity Reaction Status Date / Time ampicillin Allergy ANAPHYLAXIS Verified 07/10/17 16:05 codeine AdvReac HEADACHE Verified 07/10/17 16:05 - Medications Medications: Current Medications Acetaminophen (Tylenol 325mg Tab) 650 mg PO Q6 PRN PRN Reason: Pain, Mild (1-3) Albuterol/Ipratropium (Duoneb 3 Mg/0.5 Mg (3 Ml) Ud) 3 ml INH RQ6 PRN PRN Reason: Shortness of Breath Aspirin (Ecotrin) 81 mg PO DAILY [facility] Last Admin: 07/09/17 08:30 Dose: 81 mg Atorvastatin Calcium (Lipitor) 20 mg PO DAILY [facility] Last Admin: 07/09/17 08:31 Dose: 20 mg Carvedilol (Coreg) 3.125 mg PO DAILY [facility] Last Admin: 07/09/17 08:30 Dose: 3.125 mg Clopidogrel Bisulfate (Plavix) 75 mg PO DAILY [facility] Last Admin: 07/09/17 08:32 Dose: 75 mg Enoxaparin Sodium (Lovenox) 40 mg SC DAILY [facility] PRN Reason: Protocol Last Admin: 07/09/17 08:31 Dose: 40 mg Furosemide (Lasix) 40 mg IVP BID [facility] Last Admin: 07/09/17 08:30 Dose: 40 mg Guaifenesin (Robitussin) 100 mg PO Q6 PRN PRN Reason: Cough Last Admin: 07/08/17 21:12 Dose: 100 mg Insulin Human Lispro (Humalog) 0 units SC ACHS [facility] PRN Reason: Protocol Last Admin: 07/09/17 08:29 Dose: Not Given Nitroglycerin (Nitro-Bid 2% Oint) 0.5 ea TOP Q6 [facility] Last Admin: 07/09/17 10:04 Dose: 0.5 ea Sertraline HCl (Zoloft) 50 mg PO DAILY [facility] Last Admin: 07/09/17 08:31 Dose: 50 mg Tamsulosin HCl (Flomax) 0.4 mg PO DAILY [facility] Last Admin: 07/09/17 08:30 Dose: 0.4 mg Tramadol HCl (Ultram) 50 mg PO TID PRN PRN Reason: Pain, moderate (4-7) Last Admin: 07/09/17 10:02 Dose: 50 mg Physical Exam - Additional Findings Additional findings: Thin, chronically ill-appearing male lying in bed appears mildly dyspneic with conversation. There is no peripheral cyanosis. No dependent edema lower extremities. No calf tenderness or palpable venous cords. Peripheral pulses are present but diminished in both lower extremities. The pharynx is pink and the mucous membrane is moist. No exudate. Nasal passages are patent bilaterally. No bleeding or exudate. Neck is supple and trachea is midline. No neck vein distention or carotid bruit. Hyperresonance to chest percussion is noted bilaterally. Both hemidiaphragms are displaced caudally. Breath sounds are diminished bilaterally without any audible wheezing. No bronchial breath sounds or egophony. Scattered rhonchi are heard in the lower lobes with few basal dry rales posteriorly. Heart sounds are slightly distant and the rhythm is regular. No murmur is heard. Abdomen soft and nontender with normal bowel sounds. No CVA tenderness. No HSM. Results - Vital Signs Recent Vital Signs: Last Vital Signs Temp 97.9 F 07/09/17 08:05 Pulse 75 07/09/17 10:04 Resp 20 07/09/17 08:05 BP 111/67 01/16/18 10:04 Pulse Ox 100 07/09/17 08:05 - Labs Result Diagrams: 07/09/17 04:20 07/09/17 04:20 Labs: Laboratory Results - last 24 hr 07/08/17 07/08/17 07/08/17 11:02 14:01 15:59 WBC RBC Hgb Hct MCV MCH MCHC RDW Plt Count Sodium Potassium Chloride Carbon Dioxide Anion Gap BUN Creatinine Est GFR ( Amer) Est GFR (Non-Af Amer) POC Glucose (mg/dL) 232 H 120 H Random Glucose Calcium Troponin I 0.0520 NT-Pro-B Natriuret Pep 07/08/17 07/09/17 07/09/17 21:33 04:20 04:20 WBC 13.1 H D RBC 4.20 L Hgb 13.0 Hct 39.4 MCV 93.8 MCH 30.9 MCHC 32.9 L RDW 13.9 Plt Count 199 Sodium 138 Potassium 4.6 Chloride 98 Carbon Dioxide 31 H Anion Gap 14 BUN 24 H Creatinine 1.2 Est GFR ( Amer) > 60 Est GFR (Non-Af Amer) > 60 POC Glucose (mg/dL) 159 H Random Glucose 142 H Calcium 9.6 Troponin I NT-Pro-B Natriuret Pep 7150 H 07/09/17 07/09/17 04:46 10:24 WBC RBC Hgb Hct MCV MCH MCHC RDW Plt Count Sodium Potassium Chloride Carbon Dioxide Anion Gap BUN Creatinine Est GFR ( Amer) Est GFR (Non-Af Amer) POC Glucose (mg/dL) 118 H 145 H Random Glucose Calcium Troponin I NT-Pro-B Natriuret Pep Assessment & Plan (1) CHF exacerbation Status: Acute Priority: High (2) CAD (coronary artery disease) Status: Chronic Priority: High (3) COPD (chronic obstructive pulmonary disease) Status: Chronic Priority: High (4) DM2 (diabetes mellitus, type 2) Status: Chronic Priority: High (5) Multiple sclerosis Status: Chronic Priority: Medium (6) Nicotine dependence Status: Chronic Priority: High - Assessment and Plan (Free Text) Plan: His pulmonary condition appears to be relatively stable at the present time despite his continued tobacco use. He has been counseled regarding methods to eliminate his nicotine dependence but chooses to continue smoking at this time. He has been advised as to the consequences of continued tobacco use concerning his pulmonary as well as cardiac status. We'll continue his maintenance regimen using long-acting muscarinic agent and avoidance of beta-adrenergic agents as much as possible for the present time. - Date & Time Date: 07/09/17 Time: 11:28
[2017-07-10] MEDS: Nitroglycerin 2% Ointment Foilpak UD TOP SCH ×3 (04:10→15:59)
[2017-07-10] MEDS: Insulin Lispro (humaLOG) 100 Units/ml Inj SC SCH ×3 (09:23→16:00)
[2017-07-10] MEDS: Enoxaparin 40 mg Syringe SC SCH (09:24)
--- NOTE | 2017-07-10 09:53 | CP.PCM.PN ---
Subjective - Date & Time of Evaluation Date of Evaluation: 07/10/17 Time of Evaluation: 08:00 - Subjective Subjective: BREATHING A LITTLE BETTER Objective - Vital Signs/Intake and Output Vital Signs (last 24 hours): Temp Pulse Resp BP Pulse Ox 98.1 F 62 18 111/70 97 07/10/17 08:20 07/10/17 09:26 07/10/17 08:20 07/10/17 09:26 07/10/17 08:20 Intake and Output: 07/10/17 07/10/17 06:59 18:59 Intake Total 1210 Output Total 3000 Balance -1790 - Medications Medications: Current Medications Acetaminophen (Tylenol 325mg Tab) 650 mg PO Q6 PRN PRN Reason: Pain, Mild (1-3) Last Admin: 07/09/17 14:25 Dose: 650 mg Albuterol/Ipratropium (Duoneb 3 Mg/0.5 Mg (3 Ml) Ud) 3 ml INH RQ6 PRN PRN Reason: Shortness of Breath Aspirin (Ecotrin) 81 mg PO DAILY [facility] Last Admin: 07/10/17 09:23 Dose: 81 mg Atorvastatin Calcium (Lipitor) 20 mg PO DAILY [facility] Last Admin: 07/10/17 09:24 Dose: 20 mg Carvedilol (Coreg) 3.125 mg PO DAILY [facility] Last Admin: 07/10/17 09:23 Dose: 3.125 mg Clopidogrel Bisulfate (Plavix) 75 mg PO DAILY [facility] Last Admin: 07/10/17 09:26 Dose: 75 mg Enoxaparin Sodium (Lovenox) 40 mg SC DAILY [facility] PRN Reason: Protocol Last Admin: 07/10/17 09:24 Dose: 40 mg Furosemide (Lasix) 40 mg IVP BID [facility] Last Admin: 07/10/17 09:24 Dose: 40 mg Guaifenesin (Robitussin) 100 mg PO Q6 PRN PRN Reason: Cough Last Admin: 07/08/17 21:12 Dose: 100 mg Insulin Human Lispro (Humalog) 0 units SC [facility] PRN Reason: Protocol Last Admin: 07/10/17 09:23 Dose: Not Given Lactulose (Enulose) 20 gm PO DAILY PRN PRN Reason: Constipation Last Admin: 07/09/17 18:20 Dose: 20 gm Nitroglycerin (Nitro-Bid 2% Oint) 0.5 ea TOP Q6 [facility] Last Admin: 07/10/17 09:26 Dose: 0.5 ea Sertraline HCl (Zoloft) 50 mg PO DAILY [facility] Last Admin: 07/10/17 09:26 Dose: 50 mg Tamsulosin HCl (Flomax) 0.4 mg PO DAILY [facility] Last Admin: 07/10/17 09:23 Dose: 0.4 mg Tramadol HCl (Ultram) 50 mg PO TID PRN PRN Reason: Pain, moderate (4-7) Last Admin: 07/10/17 04:11 Dose: 50 mg - Labs Labs: 07/09/17 04:20 07/09/17 04:20 PT 15.4 Seconds (9.8-13.1) H 07/07/17 20:35 INR 1.4 (0.9-1.2) H 07/07/17 20:35 APTT 36.1 Seconds (25.6-37.1) 07/07/17 20:35 - Respiratory Exam Additional comments: MUCH CLEARER TODAY THAN THE PREVIOUS 2 DAYS NO RALES OR WHEEZING - Cardiovascular Exam Cardiovascular Exam: REGULAR RHYTHM, +S1, +S2 - Extremities Exam Additional comments: NO LE EDEMA - Additional Findings Additional findings: HEALTH OUTCOMES LIAISON NSR PULMONARY NOTE REVIEWED Assessment and Plan - Assessment and Plan (Free Text) Assessment: ACUTE SYSTOLIC CHF-IMPROVED CAD WITH OLD AWMI AND RECENT NSTEMI HYPERTENSION HYPERLIPIDEMIA COPD Plan: CONTINUE O2, CARVEDILOL, NITRATES, FUROSEMIDE, ASPIRIN, CLOPIDOGREL, LOVENOX, BRONCHODILATORS WILL BEGIN DIGOXIN DUE TO THE LOW LVEF AND SYSTOLIC CHF FOR POSSIBLE DISCHARGE TO TCU
[2017-07-10] MEDS ORDERED: Levalbuterol 1.25 MG/3 ML Inhal Soln UD INH PRN (10:06)
[2017-07-10] MEDS ORDERED: Digoxin 250 mcg (0.25 mg) Tab PO ONE (10:10)
--- NOTE | 2017-07-10 10:18 | CP.PCM.PN ---
Subjective - Date & Time of Evaluation Date of Evaluation: 07/10/17 Time of Evaluation: 10:12 - Subjective Subjective: Seen on rounds in telemetry. Lying in bed, coughing (congested). Still complains of some left upper back pain. Had a somewhat sleepless night because of bowel problem. Has mucoid sputum expectoration. Has remained afebrile. SpO2 95% on nasal canula 2LPM. Trace ankle edema, no cyanosis. Neck supple and trachea midline. No dullness on chest percussion. Breath sounds are diminished bilaterally. Sonorous rhonchi heard in lower lobes bilaterally. No audible wheezing. Few dry rales in LL's. Heart sounds are distant, irregular. Will request CXR in department today, PA/lateral. Will discuss with cardiology possibility of using selective beta rufus. Scheduled ipratropium Q6H and PRN levalbuterol Q8H. Objective - Vital Signs/Intake and Output Vital Signs (last 24 hours): Temp Pulse Resp BP Pulse Ox 98.1 F 62 18 111/70 97 07/10/17 08:20 07/10/17 09:26 07/10/17 08:20 07/10/17 09:26 07/10/17 08:20 Intake and Output: 07/09/17 07/10/17 23:59 11:59 Intake Total 1210 Output Total 3000 Balance -1790 - Medications Medications: Current Medications Acetaminophen (Tylenol 325mg Tab) 650 mg PO Q6 PRN PRN Reason: Pain, Mild (1-3) Last Admin: 07/09/17 14:25 Dose: 650 mg Aspirin (Ecotrin) 81 mg PO DAILY [facility] Last Admin: 07/10/17 09:23 Dose: 81 mg Atorvastatin Calcium (Lipitor) 20 mg PO DAILY [facility] Last Admin: 07/10/17 09:24 Dose: 20 mg Carvedilol (Coreg) 3.125 mg PO DAILY [facility] Last Admin: 07/10/17 09:23 Dose: 3.125 mg Clopidogrel Bisulfate (Plavix) 75 mg PO DAILY [facility] Last Admin: 07/10/17 09:26 Dose: 75 mg Digoxin (Lanoxin) 0.25 mg PO ONCE ONE Stop: 07/10/17 10:11 Enoxaparin Sodium (Lovenox) 40 mg SC DAILY [facility] PRN Reason: Protocol Last Admin: 07/10/17 09:24 Dose: 40 mg Furosemide (Lasix) 40 mg IVP BID [facility] Last Admin: 07/10/17 09:24 Dose: 40 mg Guaifenesin (Robitussin) 100 mg PO Q6 PRN PRN Reason: Cough Last Admin: 07/08/17 21:12 Dose: 100 mg Insulin Human Lispro (Humalog) 0 units SC [facility] PRN Reason: Protocol Last Admin: 07/10/17 09:23 Dose: Not Given Ipratropium [place] (Atrovent) 0.5 mg IH RQ6 [facility] Lactulose (Enulose) 20 gm PO DAILY PRN PRN Reason: Constipation Last Admin: 07/09/17 18:20 Dose: 20 gm Levalbuterol HCl (Xopenex) 1.25 mg INH RQ8 PRN PRN Reason: Shortness of Breath Nitroglycerin (Nitro-Bid 2% Oint) 0.5 ea TOP Q6 [facility] Last Admin: 07/10/17 09:26 Dose: 0.5 ea Sertraline HCl (Zoloft) 50 mg PO DAILY [facility] Last Admin: 07/10/17 09:26 Dose: 50 mg Tamsulosin HCl (Flomax) 0.4 mg PO DAILY [facility] Last Admin: 07/10/17 09:23 Dose: 0.4 mg Tramadol HCl (Ultram) 50 mg PO TID PRN PRN Reason: Pain, moderate (4-7) Last Admin: 07/10/17 04:11 Dose: 50 mg - Labs Labs: 07/09/17 04:20 07/09/17 04:20 PT 15.4 Seconds (9.8-13.1) H 07/07/17 20:35 INR 1.4 (0.9-1.2) H 07/07/17 20:35 APTT 36.1 Seconds (25.6-37.1) 07/07/17 20:35
[2017-07-10 12:04] VITALS: PULSE 90
[2017-07-10 12:07] VITALS: O2SAT 98
--- NOTE | 2017-07-10 12:25 | CP.PCM.PN ---
Objective - Vital Signs/Intake and Output Vital Signs (last 24 hours): Temp Pulse Resp BP Pulse Ox 98.3 F 87 18 113/72 98 07/10/17 12:06 07/10/17 12:06 07/10/17 12:06 07/10/17 12:06 07/10/17 12:06 Intake and Output: 07/10/17 07/10/17 06:59 18:59 Intake Total 1210 Output Total 3000 Balance -1790 - Medications Medications: Current Medications Acetaminophen (Tylenol 325mg Tab) 650 mg PO Q6 PRN PRN Reason: Pain, Mild (1-3) Last Admin: 07/09/17 14:25 Dose: 650 mg Aspirin (Ecotrin) 81 mg PO DAILY [facility] Last Admin: 07/10/17 09:23 Dose: 81 mg Atorvastatin Calcium (Lipitor) 20 mg PO DAILY [facility] Last Admin: 07/10/17 09:24 Dose: 20 mg Carvedilol (Coreg) 3.125 mg PO DAILY [facility] Last Admin: 07/10/17 09:23 Dose: 3.125 mg Clopidogrel Bisulfate (Plavix) 75 mg PO DAILY [facility] Last Admin: 07/10/17 09:26 Dose: 75 mg Digoxin (Lanoxin) 0.125 mg PO DAILY [facility] Enoxaparin Sodium (Lovenox) 40 mg SC DAILY [facility] PRN Reason: Protocol Last Admin: 07/10/17 09:24 Dose: 40 mg Furosemide (Lasix) 40 mg IVP BID [facility] Last Admin: 07/10/17 09:24 Dose: 40 mg Guaifenesin (Robitussin) 100 mg PO Q6 PRN PRN Reason: Cough Last Admin: 07/08/17 21:12 Dose: 100 mg Insulin Human Lispro (Humalog) 0 units SC [facility] PRN Reason: Protocol Last Admin: 07/10/17 12:08 Dose: 2 unit Ipratropium [place] (Atrovent) 0.5 mg IH RQ6 [facility] Lactulose (Enulose) 20 gm PO DAILY PRN PRN Reason: Constipation Last Admin: 07/09/17 18:20 Dose: 20 gm Levalbuterol HCl (Xopenex) 1.25 mg INH RQ8 PRN PRN Reason: Shortness of Breath Nitroglycerin (Nitro-Bid 2% Oint) 0.5 ea TOP Q6 [facility] Last Admin: 07/10/17 09:26 Dose: 0.5 ea Sertraline HCl (Zoloft) 50 mg PO DAILY [facility] Last Admin: 07/10/17 09:26 Dose: 50 mg Tamsulosin HCl (Flomax) 0.4 mg PO DAILY [facility] Last Admin: 07/10/17 09:23 Dose: 0.4 mg Tramadol HCl (Ultram) 50 mg PO TID PRN PRN Reason: Pain, moderate (4-7) Last Admin: 07/10/17 12:11 Dose: 50 mg - Labs Labs: 07/09/17 04:20 07/09/17 04:20 PT 15.4 Seconds (9.8-13.1) H 07/07/17 20:35 INR 1.4 (0.9-1.2) H 07/07/17 20:35 APTT 36.1 Seconds (25.6-37.1) 07/07/17 20:35
--- NOTE | 2017-07-10 12:44 | RAD ---
HISTORY: SOB COMPARISON: 07/07/2017 TECHNIQUE: Chest PA and lateral FINDINGS: LUNGS: No active pulmonary disease. PLEURA: No significant pleural effusion identified. No pneumothorax apparent. CARDIOVASCULAR: Normal. OSSEOUS STRUCTURES: No significant abnormalities. VISUALIZED UPPER ABDOMEN: Normal. OTHER FINDINGS: None. IMPRESSION: No active disease.
[2017-07-10] MEDS ORDERED: Ipratropium 0.02% Inhal Soln (0.5 mg/2.5 ml) UD IH SCH (14:00)
--- NOTE | 2017-07-10 15:14 | CP.PCM.DIS ---
Provider - Provider Date of Admission: 07/09/17 11:21 Attending physician: Dariana Maria MD Primary care physician: Dr Pandya Consults: Cardio: Dr House Pulm: Dr Pandya Time Spent in preparation of Discharge (in minutes): 30 Diagnosis - Discharge Diagnosis (1) CHF exacerbation Status: Acute (2) COPD (chronic obstructive pulmonary disease) Status: Chronic (3) CAD (coronary artery disease) Status: Chronic (4) Physical deconditioning Status: Acute (5) DM2 (diabetes mellitus, type 2) Status: Chronic Priority: Low (6) HTN (hypertension) Status: Chronic Priority: Low (7) BPH (benign prostatic hyperplasia) Status: Chronic Priority: Low Hospital Course - Lab Results Lab Results: Most Recent Lab Values WBC 13.1 K/uL (4.8-10.8) H D 07/09/17 04:20 RBC 4.20 Mil/uL (4.40-5.90) L 07/09/17 04:20 Hgb 13.0 g/dL (12.0-18.0) 07/09/17 04:20 Hct 39.4 % (35.0-51.0) 07/09/17 04:20 MCV 93.8 fl (80.0-94.0) 07/09/17 04:20 MCH 30.9 pg (27.0-31.0) 07/09/17 04:20 MCHC 32.9 g/dL (33.0-37.0) L 07/09/17 04:20 RDW 13.9 % (11.5-14.5) 07/09/17 04:20 Plt Count 199 K/uL (130-400) 07/09/17 04:20 MPV 9.0 fl (7.2-11.7) 07/08/17 04:20 Neut % (Auto) 88.6 % (50.0-75.0) H 07/08/17 04:20 Lymph % (Auto) 9.6 % (20.0-40.0) L 07/08/17 04:20 [place] % (Auto) 0.9 % (0.0-10.0) 07/08/17 04:20 Eos % (Auto) 0.1 % (0.0-4.0) 07/08/17 04:20 Baso % (Auto) 0.8 % (0.0-2.0) 07/08/17 04:20 Neut # 6.1 K/uL (1.8-7.0) 07/08/17 04:20 Lymph # 0.7 K/uL (1.0-4.3) L 07/08/17 04:20 [place] # 0.1 K/uL (0.0-0.8) 07/08/17 04:20 Eos # 0.0 K/uL (0.0-0.7) 07/08/17 04:20 Baso # 0.1 K/uL (0.0-0.2) 07/08/17 04:20 Neutrophils % (Manual) 89 % (42-75) H 07/08/17 04:20 Lymphocytes % (Manual) 8 % (20-50) L 07/08/17 04:20 Reactive Lymphs % 1 % (0-0) H 07/08/17 04:20 Monocytes % (Manual) 1 % (0-10) 07/08/17 04:20 Basophils % (Manual) 1 % (0-2) 07/08/17 04:20 Platelet Estimate Normal (NORMAL) 07/08/17 04:20 RBC Morphology Normal (NORMAL) 07/08/17 04:20 PT 15.4 Seconds (9.8-13.1) H 07/07/17 20:35 INR 1.4 (0.9-1.2) H 07/07/17 20:35 APTT 36.1 Seconds (25.6-37.1) 07/07/17 20:35 Sodium 138 mmol/l (132-148) 07/09/17 04:20 Potassium 4.6 MMOL/L (3.6-5.0) 07/09/17 04:20 Chloride 98 mmol/L (98-107) 07/09/17 04:20 Carbon Dioxide 31 mmol/L (22-30) H 07/09/17 04:20 Anion Gap 14 (10-20) 07/09/17 04:20 BUN 24 mg/dl (9-20) H 07/09/17 04:20 Creatinine 1.2 mg/dl (0.8-1.5) 07/09/17 04:20 Est GFR ( Amer) > 60 07/09/17 04:20 Est GFR (Non-Af Amer) > 60 07/09/17 04:20 POC Glucose (mg/dL) 184 mg/dL (65-110) H 07/10/17 10:49 Random Glucose 142 mg/dL (75-110) H 07/09/17 04:20 Calcium 9.6 mg/dL (8.4-10.2) 07/09/17 04:20 Total Bilirubin 0.3 mg/dl (0.2-1.3) 07/07/17 20:35 AST 26 U/L (17-59) 07/07/17 20:35 ALT 29 U/L (21-72) 07/07/17 20:35 Alkaline Phosphatase 63 U/L (38-126) 07/07/17 20:35 Troponin I 0.0520 ng/mL (0.00-0.120) 07/08/17 14:01 NT-Pro-B Natriuret Pep 7150 pg/ml (0-900) H 07/09/17 04:20 Total Protein 7.1 G/DL (6.3-8.2) 07/07/17 20:35 Albumin 3.7 g/dL (3.5-5.0) 07/07/17 20:35 Globulin 3.4 gm/dL (2.2-3.9) 07/07/17 20:35 Albumin/Globulin Ratio 1.1 (1.0-2.1) 07/07/17 20:35 - Hospital Course Hospital Course: 71 y/o male with MHx significant for CAD with stents, CHF (EF 15%), COPD, DM2, HTN, and HLD came in with worsening SOB. He was dx with NSTEMI in May but refused cardiac catheterization and was discharge home on medical management. He had been doing well since his discharge last month however on day of admission, he noted worsening PIZARRO and even SOB at rest. Denies CP. Denies fever/productive cough. Denies n/v/d. ProBNP was >8000 . CXR showed no active disease> Pt was admitted to Telemetry , he was started on IV Diuretics. Trop negative. Cardiology and Pulmonary consulted. Pt's condition improved however noted to be physically deconditioned . PT was consulted rec TCU placement for further Rehab. 1.Acute CHF exacerbation , systolic dysfunction Last Echo EF 15 % Probnp > 8000 Trop x2 negative so far , chest pain free Received lasix 40 mg IV q12h Cardiology consulted Dr. House Continue ASA, plavix, statin, Carvedilol , Digoxin and NTG 2.COPD , chronic symptoms appear to be more consistent with pulm vascular congestion however pt has cough, decrease BS on exam Pulm consulted- Dr Pandya - pt was started pt on Atrovent and Xopenex 3.DM type II DM diet ACHS Accucheck with SSI hold off any oral hypoglycemics as glucose normal 4. CAD / history of stent , recent NSTEMI trop x 3 negative Continue ASA, statin, Plavix, Coreg, NTG 5.BPH on flomax 6. Cachetic BMI 19 7. Physical DEconditioning - Physical therapy consult- rec TCU for further Rehab DVT PPx SQ Lovenox Discharge Exam - Head Exam Head Exam: ATRAUMATIC, NORMAL INSPECTION, NORMOCEPHALIC - Eye Exam Eye Exam: EOMI, Normal appearance Pupil Exam: NORMAL ACCOMODATION - ENT Exam ENT Exam: Mucous Membranes Moist, Normal External Ear Exam - Neck Exam Neck exam: Full Rom - Respiratory Exam Respiratory Exam: Decreased Breath Sounds, Rales, Rhonchi. absent: Wheezes, Respiratory Distress - Cardiovascular Exam Cardiovascular Exam: REGULAR RHYTHM, +S1, +S2 - GI/Abdominal Exam GI & Abdominal Exam: Normal Bowel Sounds, Soft. absent: Tenderness - Extremities Exam Extremities exam: normal capillary refill Additional comments: no edema no calf tenderness - Back Exam Back exam: absent: CVA tenderness (L), CVA tenderness (R) - Neurological Exam Neurological exam: Alert, CN II-XII Intact, Oriented x3 - Psychiatric Exam Psychiatric exam: Normal Affect, Normal Mood - Skin Skin Exam: Dry, Normal Color, Warm Discharge Plan - Follow Up Plan Condition: STABLE Disposition: TRANSF TO SNF Instructions: Heart Failure (DC) Additional Instructions: d/c pt to TCU Referrals: Andi Pandya MD [Staff Provider] - Maximo House MD [Staff Provider] - Clinical Quality Measures - CQM - Heart Failure Ejection Fraction: Less Than 40 % Left Ventricular Function to be assessed after discharge: Yes ELINA Inhibitor Prescribed: No Contraindication/Reason for not providing: pt on ARB Beta-Melquiades Prescribed: Carvedilol Angiotensin II Receptor Melquiades Prescribed: Yes AnticoagulationTherapy for Atrial Fibrillation/Atrialflutter: No Contraindication/Reason for not providing: not indicated Aldosterone Antagonist Prescribed: No Contraindication/Reason for not providing: BP low normal Hydralazine Nitrate Prescribed: No Contraindication/Reason for not providing: BP low normal Implantable Cardioverter Defibrillator Therapy: No Contraindication/Reason for not providing: not indicated Cardiac Resynchronization Therapy Prescribed: No Contraindication/Reason for not providing: N/A Will be discharged to: Nursing Home Facility Follow Up Date (must be within 7 days from discharge): 07/11/17 Follow Up Time: 09:00 - Date & Time of Discharge Summary Date of Discharge Summary: 07/10/17 Time of Discharge Summary: 16:23
[2017-07-10 16:23] VITALS: BP 110/70; PULSE 80; RESP 17; TEMP 98.2
[2017-07-11] MEDS ORDERED: Digoxin 125 mcg (0.125 mg) Tab PO SCH (09:00)
== END 2017-07-10 16:54 | DRG 292 ==
LOC: H.ER 20:08 → H.ERHOLD 21:46 → H.TEL 22:30 → OBSVTOIN 07-09 11:21
PROVIDERS: ADMIT Internal Medicine; ATTEND Internal Medicine
DX: I11.0 Hypertensive heart disease with heart failure (principal); R64 Cachexia; G35 Multiple sclerosis; J43.9 Emphysema, unspecified; E11.9 Type 2 diabetes mellitus without complications; D72.829 Elevated white blood cell count, unspecified; Z68.1 Body mass index [BMI] 19.9 or less, adult; I25.10 Atherosclerotic heart disease of native coronary artery without angina pectoris; I50.23 Acute on chronic systolic (congestive) heart failure; Z86.73 Personal history of transient ischemic attack (TIA), and cerebral infarction without residual deficits; Z95.5 Presence of coronary angioplasty implant and graft; E78.00 Pure hypercholesterolemia, unspecified; E78.5 Hyperlipidemia, unspecified; F17.210 Nicotine dependence, cigarettes, uncomplicated; Z88.0 Allergy status to penicillin; Z88.6 Allergy status to analgesic agent; F32.9 Major depressive disorder, single episode, unspecified; I25.2 Old myocardial infarction; Z91.19 Patient's noncompliance with other medical treatment and regimen; N40.0 Benign prostatic hyperplasia without lower urinary tract symptoms; T38.0X5A Adverse effect of glucocorticoids and synthetic analogues, initial encounter

== ENCOUNTER 2017-07-10 15:48 | Inpatient (IN) | payer OTHER ==
[2017-07-10 16:06] VITALS: BMI 18.5
[2017-07-10] MEDS ORDERED: guaiFENesin 100 mg/5 ml Syrup UD PO PRN (17:36)
[2017-07-10] MEDS: Ipratropium 0.02% Inhal Soln (0.5 mg/2.5 ml) UD IH SCH (21:28)
[2017-07-10] MEDS: Levalbuterol 1.25 MG/3 ML Inhal Soln UD INH PRN (21:28)
[2017-07-10] MEDS: Nitroglycerin 2% Ointment Foilpak UD TOP SCH (22:15)
[2017-07-11] MEDS: Ipratropium 0.02% Inhal Soln (0.5 mg/2.5 ml) UD IH SCH ×4 (01:10→19:09)
[2017-07-11] MEDS: Nitroglycerin 2% Ointment Foilpak UD TOP SCH ×4 (05:49→21:43)
[2017-07-11] MEDS: Levalbuterol 1.25 MG/3 ML Inhal Soln UD INH PRN (07:35)
[2017-07-11] MEDS: Enoxaparin 40 mg Syringe SC SCH (08:41)
[2017-07-11] MEDS: Digoxin 125 mcg (0.125 mg) Tab PO SCH (08:42)
--- NOTE | 2017-07-11 10:01 | CP.PCM.HP ---
History of Present Illness - History of Present Illness History of Present Illness: Chief Complaint L Pt transferred to TCU for Physical therapy - physically deconditioned HPI: 71 y/o male with PMH significant for CAD with stents, CHF (EF 15%), COPD, DM2, HTN, and HLD and also recent NSTEMI in May but refused cardiac catheterization was admitted to Telemetry for CHF exacerbation. He had been doing well since his discharge last month however on day of admission, he noted worsening PIZARRO and even SOB at rest. Denies CP. Denies fever/productive cough. Denies n/v/d. He was started Oxygen per NC, on IV Diuretics. Troponin x 3 were negative. Cardiology and Pulmonary consulted. Pt's condition improved however noted to be physically deconditioned . PT was consulted and recommended TCU placement for further Rehab. Present on Admission - Present on Admission Any Indicators Present on Admission: No Review of Systems - Review of Systems All systems: reviewed and no additional remarkable complaints except - Constitutional Constitutional: absent: Fever - EENT Eyes: Blurred Vision. absent: Change in Vision Nose/Mouth/Throat: absent: Nasal Congestion - Cardiovascular Cardiovascular: Dyspnea on Exertion. absent: Chest Pain, Leg Edema, Orthopnea, Paroxysmal Nocturnal Dyspnea - Respiratory Respiratory: Cough, Dyspnea on Exertion. absent: Wheezing - Gastrointestinal Gastrointestinal: absent: Abdominal Pain, Nausea, Vomiting - Genitourinary Genitourinary: absent: Dysuria - Musculoskeletal Musculoskeletal: Arthralgias, Back Pain, Limited Range of Motion - Integumentary Integumentary: absent: Rash - Neurological Neurological: absent: Dizziness, Headaches - Psychiatric Psychiatric: absent: Anxiety, Depression - Endocrine Endocrine: absent: Polydipsia, Polyphagia, Polyuria - Hematologic/Lymphatic Hematologic: absent: Easy Bleeding, Easy Bruising Past Patient History - Infectious Disease Hx of Infectious Diseases: None - Tetanus Immunizations Tetanus Immunization: Unknown - Past Medical History & Family History Past Medical History?: Yes Past Family History: Reviewed and not pertinent - Past Social History Smoking Status: Light Smoker < 10 Cigarettes Daily Chewing Tobacco Use: No Cigar Use: No Alcohol: None Drugs: Denies Home Situation {Lives}: Alone - CARDIAC Hx Cardia Arrhythmia: Yes Hx Congestive Heart Failure: Yes Hx Heart Attack: Yes Hx Hypercholesterolemia: Yes Hx Hypertension: Yes - PULMONARY Hx Bronchitis: No Hx Chronic Obstructive Pulmonary Disease (COPD): Yes Hx Emphysema: Yes - NEUROLOGICAL Hx Multiple Sclerosis: Yes (???) Hx Transient Ischemic Attacks (TIA): Yes - HEENT Hx HEENT Problems: Yes - RENAL Hx Chronic Kidney Disease: No - ENDOCRINE/METABOLIC Hx Endocrine Disorders: Yes Hx Diabetes Mellitus Type 2: Yes - HEMATOLOGICAL/ONCOLOGICAL Hx Anemia: Yes Hx Human Immunodeficiency Virus (HIV): No - INTEGUMENTARY Hx Dermatological Problems: No - MUSCULOSKELETAL/RHEUMATOLOGICAL Hx Falls: No Hx Fractures: Yes (b/l feet) - GASTROINTESTINAL Hx Gastrointestinal Disorders: No - GENITOURINARY/GYNECOLOGICAL Hx Genitourinary Disorders: No - PSYCHIATRIC Hx Anxiety: Yes Hx Depression: Yes Hx Substance Use: No - SURGICAL HISTORY Hx Cholecystectomy: Yes Hx Coronary Artery Bypass Graft: No Hx Coronary Stent: Yes (x3) - ANESTHESIA Hx Anesthesia: Yes Hx Anesthesia Reactions: No Hx Malignant Hyperthermia: No Meds Allergies/Adverse Reactions: Allergies Allergy/AdvReac Type Severity Reaction Status Date / Time ampicillin Allergy ANAPHYLAXIS Verified 07/10/17 16:05 codeine AdvReac HEADACHE Verified 07/10/17 16:05 Physical Exam - Constitutional Appears: No Acute Distress, Chronically Ill - Head Exam Head Exam: NORMAL INSPECTION, NORMOCEPHALIC - Eye Exam Eye Exam: EOMI, Normal appearance Pupil Exam: NORMAL ACCOMODATION - ENT Exam ENT Exam: Mucous Membranes Moist, Normal External Ear Exam - Neck Exam Neck exam: Positive for: Full Rom. Negative for: Meningismus - Respiratory Exam Respiratory Exam: Decreased Breath Sounds, Rales, Rhonchi. absent: Wheezes - Cardiovascular Exam Cardiovascular Exam: REGULAR RHYTHM, +S1, +S2 - GI/Abdominal Exam GI & Abdominal Exam: Normal Bowel Sounds, Soft. absent: Tenderness - Extremities Exam Extremities exam: Positive for: normal capillary refill. Negative for: calf tenderness, full ROM, pedal edema - Back Exam Back exam: FULL ROM. absent: CVA tenderness (L), CVA tenderness (R) - Neurological Exam Neurological exam: Alert, CN II-XII Intact, Oriented x3 - Psychiatric Exam Psychiatric exam: Normal Affect, Normal Mood - Skin Skin Exam: Dry, Normal Color, Warm Results - Vital Signs Recent Vital Signs: Last Vital Signs Temp 97.5 F L 07/11/17 08:11 Pulse 60 07/11/17 08:41 Resp 20 07/11/17 08:11 BP 122/81 07/11/17 08:42 Pulse Ox 98 01/18/18 08:11 - Labs Labs: Laboratory Results - last 24 hr 07/10/17 07/11/17 19:48 06:52 POC Glucose (mg/dL) 113 H 115 H Assessment & Plan - Assessment and Plan (Free Text) Assessment: 71 y/o male with MHx significant for CAD with stents, CHF (EF 15%), COPD, DM2, HTN, and HLD came in with worsening SOB. Pt was admitted to Telemetry for CHF exacerbation and was started on IV Diuretics. Trop negative. Cardiology and Pulmonary consulted. Pt's condition improved however noted to be physically deconditioned . PT was consulted rec TCU placement for further Rehab. 1. CHF exacerbation , systolic dysfunction Last Echo EF 15 % cont lasix 40 mg IV q12h Cardiology consult Dr. House Continue ASA, plavix, statin, Carvedilol , Digoxin and NTG 2.COPD , chronic Pulm consult- Dr Pandya pt on Atrovent and Xopenex 3.DM type II DM diet ACHS Accucheck with SSI hold off any oral hypoglycemics as glucose normal 4. CAD / history of stent , recent NSTEMI Continue ASA, statin, Plavix, Coreg, NTG 5.BPH on flomax 6. Cachetic BMI 19 7. Physical DEconditioning - Physical therapy consult DVT PPx SQ Lovenox Decision To Admit - Pt Status Changed To: Hospital Disposition Of: Inpatient - Admit Certification Admit to Inpatient:: After my assessment, the patient will require hospitalization for at least two midnights. This is because of the severity of symptoms shown, intensity of services needed, and/or the medical risk in this patient being treated as an outpatient. - . Bed Request Type: Transitional Care Unit Admitting Physician: Jayna Sher
--- NOTE | 2017-07-11 10:09 | CP.PCM.CON ---
History of Present Illness - History of Present Illness History of Present Illness: THE PATIENT IS A 71 YEAR OLD MALE WHO HAS A HISTORY OF CAD, HYPERTENSION, COPD, DM AND DEPRESSION. HE HAD AN AWMI ABOUT 4 YEARS AGO AND HAD A CODE HEART AND AN EMERGENCY CARDIAC CATH FOLLOWED BY A CORONARY STENT INSERTION AND HIS LV FUNCTION WAS PRESERVED WITH A LVEF OF 40%. HE HAD A NSTEMI LAST MONTH AND PRESENTED WITH ONGOING CHEST PAIN BUT HE REFUSED EMERGENCY INVASIVE TREATMENT AND HAD A RESULTANT DECREASE OF HIS LVEF TO ABOUT 15%. HE WAS ADMITTED TO [facility] ON 07/09/17 WITH ACUTE SYSTOLIC CHF. HE STATES THAT HE WAS NOT FOLLOWING HIS DIETARY FLUID RESTRICTION. HE IMPROVED WITH MEDICAL TREATMENT INCLUDING IV FUROSEMIDE. HE WAS DISCHARGED TO TCU FOR SUBACUTE REHAB DUE TO DECONDITIONING. HE DOES NOT HAVE ANY CHEST PAIN. Past Patient History - Infectious Disease Hx of Infectious Diseases: None - Tetanus Immunizations Tetanus Immunization: Unknown - Past Medical History & Family History Past Medical History?: Yes - Past Social History Smoking Status: Former Smoker - CARDIAC Hx Cardia Arrhythmia: Yes Hx Congestive Heart Failure: Yes Hx Heart Attack: Yes Hx Hypercholesterolemia: Yes Hx Hypertension: Yes - PULMONARY Hx Asthma: Yes Hx Bronchitis: No Hx Chronic Obstructive Pulmonary Disease (COPD): Yes Hx Emphysema: Yes - NEUROLOGICAL Hx Multiple Sclerosis: Yes Hx Transient Ischemic Attacks (TIA): Yes - HEENT Hx HEENT Problems: Yes - RENAL Hx Chronic Kidney Disease: No - ENDOCRINE/METABOLIC Hx Endocrine Disorders: Yes Hx Diabetes Mellitus Type 2: Yes - HEMATOLOGICAL/ONCOLOGICAL Hx Anemia: Yes Hx Human Immunodeficiency Virus (HIV): No - INTEGUMENTARY Hx Dermatological Problems: No - MUSCULOSKELETAL/RHEUMATOLOGICAL Hx Falls: No Hx Fractures: Yes (b/l feet) - GASTROINTESTINAL Hx Gastrointestinal Disorders: No - GENITOURINARY/GYNECOLOGICAL Hx Genitourinary Disorders: No - PSYCHIATRIC Hx Anxiety: Yes Hx Depression: Yes Hx Substance Use: No - SURGICAL HISTORY Hx Cholecystectomy: Yes Hx Coronary Artery Bypass Graft: No Hx Coronary Stent: Yes (x3) - ANESTHESIA Hx Anesthesia: Yes Hx Anesthesia Reactions: No Hx Malignant Hyperthermia: No Meds Allergies/Adverse Reactions: Allergies Allergy/AdvReac Type Severity Reaction Status Date / Time ampicillin Allergy ANAPHYLAXIS Verified 07/10/17 16:05 codeine AdvReac HEADACHE Verified 07/10/17 16:05 - Medications Medications: Current Medications Acetaminophen (Tylenol 325mg Tab) 650 mg PO Q6 PRN PRN Reason: Pain, Mild (1-3) Aspirin (Ecotrin) 81 mg PO DAILY [facility] Last Admin: 07/11/17 08:42 Dose: 81 mg Atorvastatin Calcium (Lipitor) 20 mg PO HS [facility] Carvedilol (Coreg) 3.125 mg PO DAILY [facility] Last Admin: 07/11/17 08:41 Dose: 3.125 mg Clopidogrel Bisulfate (Plavix) 75 mg PO DAILY [facility] Last Admin: 07/11/17 08:42 Dose: 75 mg Digoxin (Lanoxin) 0.125 mg PO DAILY [facility] Last Admin: 07/11/17 08:42 Dose: 0.125 mg Enoxaparin Sodium (Lovenox) 40 mg SC DAILY [facility] PRN Reason: Protocol Last Admin: 07/11/17 08:41 Dose: 40 mg Furosemide (Lasix) 40 mg IVP BID [facility] Last Admin: 07/11/17 08:42 Dose: 40 mg Guaifenesin (Robitussin) 100 mg PO Q6 PRN PRN Reason: Cough Ipratropium [place] (Atrovent) 0.5 mg IH RQ6 [facility] Last Admin: 07/11/17 07:35 Dose: 0.5 mg Lactulose (Enulose) 20 gm PO DAILY PRN PRN Reason: Constipation Levalbuterol HCl (Xopenex) 1.25 mg INH RQ8 PRN PRN Reason: Shortness of Breath Last Admin: 07/11/17 07:35 Dose: 1.25 mg Nitroglycerin (Nitro-Bid 2% Oint) 0.5 ea TOP Q6 [facility] Last Admin: 07/11/17 05:49 Dose: 0.5 ea Sertraline HCl (Zoloft) 50 mg PO DAILY [facility] Last Admin: 07/11/17 08:41 Dose: 50 mg Tamsulosin HCl (Flomax) 0.4 mg PO DAILY [facility] Last Admin: 07/11/17 08:41 Dose: 0.4 mg Tramadol HCl (Ultram) 50 mg PO TID PRN PRN Reason: Pain, severe (8-10) Last Admin: 07/11/17 09:02 Dose: 50 mg Valsartan (Diovan) 40 mg PO DAILY [facility] Last Admin: 07/11/17 08:42 Dose: 40 mg Physical Exam - Respiratory Exam Respiratory Exam: Clear to Auscultation Bilateral - Cardiovascular Exam Cardiovascular Exam: REGULAR RHYTHM, +S1, +S2 - Extremities Exam Additional comments: NO SIGNIFICANT LE EDEMA Results - Vital Signs Recent Vital Signs: Last Vital Signs Temp 97.5 F L 07/11/17 08:11 Pulse 60 07/11/17 08:41 Resp 20 07/11/17 08:11 BP 122/81 07/11/17 08:42 Pulse Ox 98 07/11/17 08:11 - Labs Labs: Laboratory Results - last 24 hr 07/10/17 07/11/17 19:48 06:52 POC Glucose (mg/dL) 113 H 115 H Assessment & Plan - Assessment and Plan (Free Text) Assessment: CAD WITH 2 MYOCARDIAL INFARCTIONS THE LAST ON BEING A NSTEMI LAST MONTH ACUTE SYSTOLIC CHF 07/09/17 WITH LVEF OF 15% HYPERTENSION COPD DEPRESSION Plan: CONTINUE CARVEDILOL, NITRATES, ASPIRIN, CLOPIDOGREL, DIGOXIN, ATORVASTATIN, LOVENOX, BRONCHODILATORS AND ZOLOFT FUROSEMIDE CHANGED TO ORAL CONTINUE SUBACUTE REHAB
[2017-07-12] MEDS: Ipratropium 0.02% Inhal Soln (0.5 mg/2.5 ml) UD IH SCH ×4 (01:06→19:28)
[2017-07-12] MEDS: Nitroglycerin 2% Ointment Foilpak UD TOP SCH ×4 (04:52→21:22)
[2017-07-12] MEDS: Digoxin 125 mcg (0.125 mg) Tab PO SCH (09:45)
[2017-07-12] MEDS: Enoxaparin 40 mg Syringe SC SCH (09:46)
--- NOTE | 2017-07-12 11:17 | CP.PCM.CON ---
History of Present Illness - History of Present Illness History of Present Illness: This 71 year old male was initially admitted to telemetry with decompensated congestive heart failure. He has a longstanding history of COPD and CAD with prior [place], but continues to practice his tobacco habit despite counselling. His respiratory status has remained stable for the most part and he has been discharged to transitional care because of deconditioning. He claims to be able to participate with physical therapy with mild dyspnea on exertion. Past Patient History - Infectious Disease Hx of Infectious Diseases: None - Tetanus Immunizations Tetanus Immunization: Unknown - Past Medical History & Family History Past Medical History?: Yes Past Family History: Reviewed and not pertinent - Past Social History Smoking Status: Light Smoker < 10 Cigarettes Daily Chewing Tobacco Use: No Cigar Use: No Alcohol: None Drugs: Denies Home Situation {Lives}: Alone - CARDIAC Hx Cardia Arrhythmia: Yes Hx Congestive Heart Failure: Yes Hx Heart Attack: Yes Hx Hypercholesterolemia: Yes Hx Hypertension: Yes - PULMONARY Hx Bronchitis: No Hx Chronic Obstructive Pulmonary Disease (COPD): Yes Hx Emphysema: Yes - NEUROLOGICAL Hx Multiple Sclerosis: Yes (???) Hx Transient Ischemic Attacks (TIA): Yes - HEENT Hx HEENT Problems: Yes - RENAL Hx Chronic Kidney Disease: No - ENDOCRINE/METABOLIC Hx Endocrine Disorders: Yes Hx Diabetes Mellitus Type 2: Yes - HEMATOLOGICAL/ONCOLOGICAL Hx Anemia: Yes Hx Human Immunodeficiency Virus (HIV): No - INTEGUMENTARY Hx Dermatological Problems: No - MUSCULOSKELETAL/RHEUMATOLOGICAL Hx Falls: No Hx Fractures: Yes (b/l feet) - GASTROINTESTINAL Hx Gastrointestinal Disorders: No - GENITOURINARY/GYNECOLOGICAL Hx Genitourinary Disorders: No - PSYCHIATRIC Hx Anxiety: Yes Hx Depression: Yes Hx Substance Use: No - SURGICAL HISTORY Hx Cholecystectomy: Yes Hx Coronary Artery Bypass Graft: No Hx Coronary Stent: Yes (x3) - ANESTHESIA Hx Anesthesia: Yes Hx Anesthesia Reactions: No Hx Malignant Hyperthermia: No Meds Allergies/Adverse Reactions: Allergies Allergy/AdvReac Type Severity Reaction Status Date / Time ampicillin Allergy ANAPHYLAXIS Verified 07/10/17 16:05 codeine AdvReac HEADACHE Verified 07/10/17 16:05 - Medications Medications: Current Medications Acetaminophen (Tylenol 325mg Tab) 650 mg PO Q6 PRN PRN Reason: Pain, Mild (1-3) Aspirin (Ecotrin) 81 mg PO DAILY [facility] Last Admin: 07/12/17 09:46 Dose: 81 mg Atorvastatin Calcium (Lipitor) 20 mg PO HS [facility] Last Admin: 07/11/17 21:41 Dose: 20 mg Carvedilol (Coreg) 3.125 mg PO DAILY [facility] Last Admin: 07/12/17 09:45 Dose: 3.125 mg Clopidogrel Bisulfate (Plavix) 75 mg PO DAILY [facility] Last Admin: 07/12/17 09:45 Dose: 75 mg Digoxin (Lanoxin) 0.125 mg PO DAILY [facility] Last Admin: 07/12/17 09:45 Dose: 0.125 mg Enoxaparin Sodium (Lovenox) 40 mg SC DAILY [facility] PRN Reason: Protocol Last Admin: 07/12/17 09:46 Dose: 40 mg Furosemide (Lasix) 40 mg PO Q12 [facility] Last Admin: 07/12/17 09:42 Dose: 40 mg Guaifenesin (Robitussin) 100 mg PO Q6 PRN PRN Reason: Cough Ipratropium [place] (Atrovent) 0.5 mg IH RQ6 [facility] Last Admin: 07/12/17 07:16 Dose: 0.5 mg Lactulose (Enulose) 20 gm PO DAILY PRN PRN Reason: Constipation Levalbuterol HCl (Xopenex) 1.25 mg INH RQ8 PRN PRN Reason: Shortness of Breath Last Admin: 07/11/17 07:35 Dose: 1.25 mg Nitroglycerin (Nitro-Bid 2% Oint) 0.5 ea TOP Q6 [facility] Last Admin: 07/12/17 10:16 Dose: 0.5 ea Sertraline HCl (Zoloft) 50 mg PO DAILY [facility] Last Admin: 07/12/17 09:46 Dose: 50 mg Tamsulosin HCl (Flomax) 0.4 mg PO DAILY [facility] Last Admin: 07/12/17 09:42 Dose: 0.4 mg Tramadol HCl (Ultram) 50 mg PO TID PRN PRN Reason: Pain, severe (8-10) Last Admin: 07/11/17 22:34 Dose: 50 mg Valsartan (Diovan) 40 mg PO DAILY [facility] Last Admin: 07/12/17 09:45 Dose: 40 mg Physical Exam - Additional Findings Additional findings: Thin, chronically ill appearing male in no acute distress. Memory is intact, speech is fluent. Pharynx is pink and moist w/o exudate. Neck is supple and trachea midline. No visible JVD. No palpable lymphadenopathy. No dullness on chest percussion, equal expansion. Both hemidiaphragms appear to be displaced caudally. Breath sounds are diminished bilaterally. Scattered sonorous rhonchi in dependant regions of both lungs. Few dry rales in lower lobes bilaterally. No audible wheeze. Heart sounds are distant, rhythm is regular. Abdomen is soft and non-tender. Results - Vital Signs Recent Vital Signs: Last Vital Signs Temp 97.5 F L 07/12/17 09:01 Pulse 67 07/12/17 10:16 Resp 20 07/12/17 09:01 BP 113/65 07/12/17 10:16 Pulse Ox 97 07/12/17 09:01 - Labs Labs: Laboratory Results - last 24 hr 07/11/17 07/11/17 07/11/17 10:48 16:40 20:26 POC Glucose (mg/dL) 213 H 143 H 160 H 07/12/17 06:28 POC Glucose (mg/dL) 114 H Assessment & Plan (1) Physical deconditioning Status: Acute Priority: High (2) CAD (coronary artery disease) Status: Chronic Priority: High (3) CHF (congestive heart failure) Status: Chronic Priority: High (4) COPD (chronic obstructive pulmonary disease) Status: Chronic Priority: High (5) DM2 (diabetes mellitus, type 2) Status: Chronic Priority: High (6) Multiple sclerosis Status: Chronic Priority: Medium - Assessment and Plan (Free Text) Plan: Physical therapy for strengthening as tolerated. Continue aerosol therapy and all maintenance meds. Will discuss further with cardiology, - Date & Time Date: 07/12/17 Time: :18
[2017-07-13] MEDS: Ipratropium 0.02% Inhal Soln (0.5 mg/2.5 ml) UD IH SCH ×4 (01:14→19:11)
[2017-07-13] MEDS: Nitroglycerin 2% Ointment Foilpak UD TOP SCH ×2 (04:18→17:09)
[2017-07-13] MEDS: Enoxaparin 40 mg Syringe SC SCH (08:32)
[2017-07-13] MEDS: Digoxin 125 mcg (0.125 mg) Tab PO SCH (08:33)
--- NOTE | 2017-07-13 11:38 | CP.PCM.PN ---
Subjective - Date & Time of Evaluation Date of Evaluation: 07/13/17 Time of Evaluation: 11:15 - Subjective Subjective: NO CHEST PAIN LESS SOB Objective - Vital Signs/Intake and Output Vital Signs (last 24 hours): Temp Pulse Resp BP Pulse Ox 99.5 F 78 20 114/74 96 07/13/17 07:56 07/13/17 08:33 07/13/17 07:56 07/13/17 08:33 07/13/17 07:56 - Medications Medications: Current Medications Acetaminophen (Tylenol 325mg Tab) 650 mg PO Q6 PRN PRN Reason: Pain, Mild (1-3) Aspirin (Ecotrin) 81 mg PO DAILY [facility] Last Admin: 07/13/17 08:33 Dose: 81 mg Atorvastatin Calcium (Lipitor) 20 mg PO HS [facility] Last Admin: 07/12/17 21:21 Dose: 20 mg Carvedilol (Coreg) 3.125 mg PO DAILY [facility] Last Admin: 07/13/17 08:33 Dose: 3.125 mg Clopidogrel Bisulfate (Plavix) 75 mg PO DAILY [facility] Last Admin: 07/13/17 08:32 Dose: 75 mg Digoxin (Lanoxin) 0.125 mg PO DAILY [facility] Last Admin: 07/13/17 08:33 Dose: 0.125 mg Enoxaparin Sodium (Lovenox) 40 mg SC DAILY [facility] PRN Reason: Protocol Last Admin: 07/13/17 08:32 Dose: 40 mg Furosemide (Lasix) 40 mg PO Q12 [facility] Last Admin: 07/13/17 08:32 Dose: 40 mg Guaifenesin (Robitussin) 100 mg PO Q6 PRN PRN Reason: Cough Ipratropium [place] (Atrovent) 0.5 mg IH RQ6 [facility] Last Admin: 07/13/17 07:28 Dose: 0.5 mg Lactulose (Enulose) 20 gm PO DAILY PRN PRN Reason: Constipation Last Admin: 07/13/17 11:10 Dose: 20 gm Levalbuterol HCl (Xopenex) 1.25 mg INH RQ8 PRN PRN Reason: Shortness of Breath Last Admin: 07/11/17 07:35 Dose: 1.25 mg Nitroglycerin (Nitro-Bid 2% Oint) 0.5 ea TOP Q6 [facility] Last Admin: 07/13/17 04:18 Dose: Not Given Sertraline HCl (Zoloft) 50 mg PO DAILY [facility] Last Admin: 07/13/17 08:33 Dose: 50 mg Tamsulosin HCl (Flomax) 0.4 mg PO DAILY [facility] Last Admin: 07/13/17 08:32 Dose: 0.4 mg Tramadol HCl (Ultram) 50 mg PO TID PRN PRN Reason: Pain, severe (8-10) Last Admin: 07/13/17 08:31 Dose: 50 mg Valsartan (Diovan) 40 mg PO DAILY [facility] Last Admin: 07/13/17 08:33 Dose: 40 mg - Respiratory Exam Additional comments: RALES AT RIGHT BASE - Cardiovascular Exam Cardiovascular Exam: REGULAR RHYTHM, +S1, +S2 - Extremities Exam Extremities Exam: Normal Inspection - Additional Findings Additional findings: BP MOSTLY LOW NORMAL BUT WAS LOW 96/47 AT 4 AM TODAY Assessment and Plan - Assessment and Plan (Free Text) Assessment: DECONDITIONING RECENT [facility] ADMISSION FOR ACUTE SYSTOLIC CHF-IMPROVED COPD HYPERTENSION HX BUT NOW LOW NORMAL TO BORDERLINE LOW AT TIMES HYPERLIPIDEMIA Plan: CONTINUE CARVEDILOL, ASPIRIN, CLOPIDOGREL, DIGOXIN, ATORVASTATIN NITROPASTE STOPPED DUE TO LOW BP CONTINUE VALSARTAN BUT IT MAY ALSO NEED TO BE STOPPED IF BP IS LOW
[2017-07-14] MEDS: Ipratropium 0.02% Inhal Soln (0.5 mg/2.5 ml) UD IH SCH ×4 (01:05→19:50)
[2017-07-14] MEDS: Enoxaparin 40 mg Syringe SC SCH (09:25)
[2017-07-14] MEDS: Digoxin 125 mcg (0.125 mg) Tab PO SCH (09:26)
[2017-07-15] MEDS: Ipratropium 0.02% Inhal Soln (0.5 mg/2.5 ml) UD IH SCH ×3 (00:59→19:25)
[2017-07-15] MEDS: Digoxin 125 mcg (0.125 mg) Tab PO SCH (08:34)
[2017-07-15] MEDS: Enoxaparin 40 mg Syringe SC SCH (08:34)
--- NOTE | 2017-07-15 11:06 | CP.PCM.PN ---
Subjective - Date & Time of Evaluation Date of Evaluation: 07/15/17 Time of Evaluation: 11:02 - Subjective Subjective: Continues to complain of PIZARRO. SpO2 at rest on nasal canula is 96%. No dependant edema or cyanosis. Breath sounds are diminished bilaterally w/o audible wheeze. Few scattered rhonchi and dry rales are present bilaterally in LL's. Heart sounds are distant and regular. COPD appears stable. Decompensated CHF-improved. CAD with prior HI and reduced EF. Needs nutritional counselling for proper CHO restriction. Objective - Vital Signs/Intake and Output Vital Signs (last 24 hours): Temp Pulse Resp BP Pulse Ox 97.2 F L 64 20 114/69 100 07/15/17 08:10 07/15/17 08:33 07/15/17 08:10 07/15/17 08:34 07/15/17 08:10 - Medications Medications: Current Medications Acetaminophen (Tylenol 325mg Tab) 650 mg PO Q6 PRN PRN Reason: Pain, Mild (1-3) Aspirin (Ecotrin) 81 mg PO DAILY [facility] Last Admin: 07/15/17 08:33 Dose: 81 mg Atorvastatin Calcium (Lipitor) 20 mg PO HS [facility] Last Admin: 07/14/17 21:48 Dose: 20 mg Carvedilol (Coreg) 3.125 mg PO DAILY [facility] Last Admin: 07/15/17 08:33 Dose: 3.125 mg Clopidogrel Bisulfate (Plavix) 75 mg PO DAILY [facility] Last Admin: 07/15/17 08:34 Dose: 75 mg Digoxin (Lanoxin) 0.125 mg PO DAILY [facility] Last Admin: 07/15/17 08:34 Dose: 0.125 mg Enoxaparin Sodium (Lovenox) 40 mg SC DAILY [facility] PRN Reason: Protocol Last Admin: 07/15/17 08:34 Dose: 40 mg Furosemide (Lasix) 40 mg PO Q12 [facility] Last Admin: 07/15/17 08:34 Dose: 40 mg Guaifenesin (Robitussin) 100 mg PO Q6 PRN PRN Reason: Cough Ipratropium [place] (Atrovent) 0.5 mg IH RQ6 [facility] Last Admin: 07/15/17 07:25 Dose: 0.5 mg Lactulose (Enulose) 20 gm PO DAILY PRN PRN Reason: Constipation Last Admin: 07/13/17 11:10 Dose: 20 gm Levalbuterol HCl (Xopenex) 1.25 mg INH RQ8 PRN PRN Reason: Shortness of Breath Last Admin: 07/11/17 07:35 Dose: 1.25 mg Sertraline HCl (Zoloft) 50 mg PO DAILY [facility] Last Admin: 07/15/17 08:34 Dose: 50 mg Tamsulosin HCl (Flomax) 0.4 mg PO DAILY [facility] Last Admin: 07/15/17 08:34 Dose: 0.4 mg Tramadol HCl (Ultram) 50 mg PO TID PRN PRN Reason: Pain, severe (8-10) Last Admin: 07/15/17 09:52 Dose: 50 mg Valsartan (Diovan) 40 mg PO DAILY [facility] Last Admin: 07/15/17 08:33 Dose: 40 mg Assessment and Plan (1) Physical deconditioning Status: Acute (2) CAD (coronary artery disease) Status: Chronic (3) CHF (congestive heart failure) Status: Chronic (4) COPD (chronic obstructive pulmonary disease) Status: Chronic (5) DM2 (diabetes mellitus, type 2) Status: Chronic (6) Multiple sclerosis Status: Chronic
--- NOTE | 2017-07-15 11:56 | CP.PCM.PN ---
Subjective - Date & Time of Evaluation Date of Evaluation: 07/15/17 Time of Evaluation: 11:30 - Subjective Subjective: NO CHEST PAIN STILL WITH SOME SOB Objective - Vital Signs/Intake and Output Vital Signs (last 24 hours): Temp Pulse Resp BP Pulse Ox 97.2 F L 64 20 114/69 100 07/15/17 08:10 07/15/17 08:33 07/15/17 08:10 07/15/17 08:34 07/15/17 08:10 - Medications Medications: Current Medications Acetaminophen (Tylenol 325mg Tab) 650 mg PO Q6 PRN PRN Reason: Pain, Mild (1-3) Aspirin (Ecotrin) 81 mg PO DAILY [facility] Last Admin: 07/15/17 08:33 Dose: 81 mg Atorvastatin Calcium (Lipitor) 20 mg PO HS [facility] Last Admin: 07/14/17 21:48 Dose: 20 mg Carvedilol (Coreg) 3.125 mg PO DAILY [facility] Last Admin: 07/15/17 08:33 Dose: 3.125 mg Clopidogrel Bisulfate (Plavix) 75 mg PO DAILY [facility] Last Admin: 07/15/17 08:34 Dose: 75 mg Digoxin (Lanoxin) 0.125 mg PO DAILY [facility] Last Admin: 07/15/17 08:34 Dose: 0.125 mg Enoxaparin Sodium (Lovenox) 40 mg SC DAILY [facility] PRN Reason: Protocol Last Admin: 07/15/17 08:34 Dose: 40 mg Furosemide (Lasix) 40 mg PO Q12 [facility] Last Admin: 07/15/17 08:34 Dose: 40 mg Guaifenesin (Robitussin) 100 mg PO Q6 PRN PRN Reason: Cough Ipratropium [place] (Atrovent) 0.5 mg IH RQ6 [facility] Last Admin: 07/15/17 07:25 Dose: 0.5 mg Lactulose (Enulose) 20 gm PO DAILY PRN PRN Reason: Constipation Last Admin: 07/13/17 11:10 Dose: 20 gm Levalbuterol HCl (Xopenex) 1.25 mg INH RQ8 PRN PRN Reason: Shortness of Breath Last Admin: 07/11/17 07:35 Dose: 1.25 mg Sertraline HCl (Zoloft) 50 mg PO DAILY [facility] Last Admin: 07/15/17 08:34 Dose: 50 mg Tamsulosin HCl (Flomax) 0.4 mg PO DAILY [facility] Last Admin: 07/15/17 08:34 Dose: 0.4 mg Tramadol HCl (Ultram) 50 mg PO TID PRN PRN Reason: Pain, severe (8-10) Last Admin: 07/15/17 09:52 Dose: 50 mg Valsartan (Diovan) 40 mg PO DAILY [facility] Last Admin: 07/15/17 08:33 Dose: 40 mg - Respiratory Exam Respiratory Exam: Decreased Breath Sounds Additional comments: FEW SCATTERED RALES AND RONCHI - Extremities Exam Additional comments: NO EDEMA OF LE Assessment and Plan - Assessment and Plan (Free Text) Assessment: CAD WITH POOR LVEF AND SYSTOLIC CHF-IMPROVING COPD HYPERTENSION HISTORY DM DECONDITIONING Plan: CONTINUE CARVEDILOL, VALSARTAN, DIGOXIN, FUROSEMIDE, ASPIRIN, PLAVIX, ATORVASTATIN, LOVENOX AND ALBUTEROL CONTINUE PHYSICAL THERAPY
[2017-07-15] MEDS: Levalbuterol 1.25 MG/3 ML Inhal Soln UD INH PRN (13:11)
[2017-07-16] MEDS: Ipratropium 0.02% Inhal Soln (0.5 mg/2.5 ml) UD IH SCH ×2 (01:03→07:41)
[2017-07-16] MEDS: Levalbuterol 1.25 MG/3 ML Inhal Soln UD INH PRN (07:41)
[2017-07-16] MEDS: Enoxaparin 40 mg Syringe SC SCH (08:28)
[2017-07-16] MEDS: Digoxin 125 mcg (0.125 mg) Tab PO SCH (08:30)
--- NOTE | 2017-07-16 10:38 | CP.PCM.PN ---
Subjective - Date & Time of Evaluation Date of Evaluation: 07/16/17 Time of Evaluation: 09:00 - Subjective Subjective: NO CHEST PAIN STILL SOMEWHAT SOB PATIENT INFORMED ME OF HIS LOW BLOOD PRESSURES Objective - Vital Signs/Intake and Output Vital Signs (last 24 hours): Temp Pulse Resp BP Pulse Ox 97.5 F L 67 20 97/48 L 95 07/16/17 09:55 07/16/17 09:55 07/16/17 09:55 07/16/17 09:55 07/16/17 09:55 - Medications Medications: Current Medications Acetaminophen (Tylenol 325mg Tab) 650 mg PO Q6 PRN PRN Reason: Pain, Mild (1-3) Aspirin (Ecotrin) 81 mg PO DAILY [facility] Last Admin: 07/16/17 08:29 Dose: 81 mg Atorvastatin Calcium (Lipitor) 20 mg PO HS [facility] Last Admin: 07/15/17 21:41 Dose: 20 mg Carvedilol (Coreg) 3.125 mg PO DAILY [facility] Last Admin: 07/16/17 08:29 Dose: Not Given Clopidogrel Bisulfate (Plavix) 75 mg PO DAILY [facility] Last Admin: 07/16/17 08:29 Dose: 75 mg Digoxin (Lanoxin) 0.125 mg PO DAILY [facility] Last Admin: 07/16/17 08:30 Dose: 0.125 mg Enoxaparin Sodium (Lovenox) 40 mg SC DAILY [facility] PRN Reason: Protocol Last Admin: 07/16/17 08:28 Dose: 40 mg Furosemide (Lasix) 40 mg PO BID [facility] Last Admin: 07/16/17 08:28 Dose: 40 mg Guaifenesin (Robitussin) 100 mg PO Q6 PRN PRN Reason: Cough Ipratropium [place] (Atrovent) 0.5 mg IH RQ6 [facility] Last Admin: 07/16/17 07:41 Dose: 0.5 mg Lactulose (Enulose) 20 gm PO DAILY PRN PRN Reason: Constipation Last Admin: 07/13/17 11:10 Dose: 20 gm Levalbuterol HCl (Xopenex) 1.25 mg INH RQ8 PRN PRN Reason: Shortness of Breath Last Admin: 07/16/17 07:41 Dose: 1.25 mg Sertraline HCl (Zoloft) 50 mg PO DAILY [facility] Last Admin: 07/16/17 08:31 Dose: 50 mg Tamsulosin HCl (Flomax) 0.4 mg PO DAILY [facility] Last Admin: 07/16/17 08:30 Dose: 0.4 mg Tramadol HCl (Ultram) 50 mg PO Q8H PRN PRN Reason: Pain, severe (8-10) Last Admin: 07/16/17 08:27 Dose: 50 mg - Respiratory Exam Additional comments: FEW SCATTERED WHEEZES AND RALES - Cardiovascular Exam Cardiovascular Exam: REGULAR RHYTHM, +S1, +S2 - Extremities Exam Additional comments: NO SIGNIFICANT LE EDEMA - Additional Findings Additional findings: BP 99/65 THIS MORNING Assessment and Plan - Assessment and Plan (Free Text) Assessment: CAD RECENT ACUTE DYATOLIC CHF HYPERTENSION HISTORY-BP NOW RUNNING LOW COPD Plan: VALSARTAN STOPPED DUE TO LOW BLOOD PRESSURE CONTINUE LOW DOSE CARVEDILOL, ASPIRIN, CLOPIDOGREL, FUROSEMIDE, DIGOXIN, ATORVASTATIN
--- NOTE | 2017-07-16 11:07 | CP.PCM.PN ---
Subjective - Date & Time of Evaluation Date of Evaluation: 07/16/17 Time of Evaluation: 11:04 - Subjective Subjective: Appears to be doing well on current regimen. Valsartan has been stopped because of low BP (hospital diet). SpO2 remains good on nasal canula. No dependant edema or cyanosis. Breath sounds are diminished bilaterally w/o wheeze. Few rhonchi and dry rales bilaterally. For ambulatory pulse ox recording today. Started on Spiriva. Objective - Vital Signs/Intake and Output Vital Signs (last 24 hours): Temp Pulse Resp BP Pulse Ox 97.5 F L 67 20 97/48 L 95 07/16/17 09:55 07/16/17 09:55 07/16/17 09:55 07/16/17 09:55 07/16/17 09:55 - Medications Medications: Current Medications Acetaminophen (Tylenol 325mg Tab) 650 mg PO Q6 PRN PRN Reason: Pain, Mild (1-3) Aspirin (Ecotrin) 81 mg PO DAILY [facility] Last Admin: 07/16/17 08:29 Dose: 81 mg Atorvastatin Calcium (Lipitor) 20 mg PO HS [facility] Last Admin: 07/15/17 21:41 Dose: 20 mg Carvedilol (Coreg) 3.125 mg PO DAILY [facility] Last Admin: 07/16/17 08:29 Dose: Not Given Clopidogrel Bisulfate (Plavix) 75 mg PO DAILY [facility] Last Admin: 07/16/17 08:29 Dose: 75 mg Digoxin (Lanoxin) 0.125 mg PO DAILY [facility] Last Admin: 07/16/17 08:30 Dose: 0.125 mg Enoxaparin Sodium (Lovenox) 40 mg SC DAILY [facility] PRN Reason: Protocol Last Admin: 07/16/17 08:28 Dose: 40 mg Furosemide (Lasix) 20 mg PO BID [facility] Guaifenesin (Robitussin) 100 mg PO Q6 PRN PRN Reason: Cough Lactulose (Enulose) 20 gm PO DAILY PRN PRN Reason: Constipation Last Admin: 07/13/17 11:10 Dose: 20 gm Levalbuterol HCl (Xopenex) 1.25 mg INH RQ8 PRN PRN Reason: Shortness of Breath Last Admin: 07/16/17 07:41 Dose: 1.25 mg Sertraline HCl (Zoloft) 50 mg PO DAILY [facility] Last Admin: 07/16/17 08:31 Dose: 50 mg Tamsulosin HCl (Flomax) 0.4 mg PO DAILY [facility] Last Admin: 07/16/17 08:30 Dose: 0.4 mg Tiotropium [place] (Spiriva) 18 mcg INH DAILY [facility] Tramadol HCl (Ultram) 50 mg PO Q8H PRN PRN Reason: Pain, severe (8-10) Last Admin: 07/16/17 08:27 Dose: 50 mg Assessment and Plan (1) Physical deconditioning Status: Acute (2) CAD (coronary artery disease) Status: Chronic (3) CHF (congestive heart failure) Status: Chronic (4) COPD (chronic obstructive pulmonary disease) Status: Chronic (5) DM2 (diabetes mellitus, type 2) Status: Chronic (6) Multiple sclerosis Status: Chronic
[2017-07-16] MEDS: Tiotropium 18 mcg Cap For Inhalation INH SCH (11:35)
--- NOTE | 2017-07-16 19:44 | CP.PCM.PN ---
Subjective - Date & Time of Evaluation Date of Evaluation: 07/16/17 Time of Evaluation: 17:20 - Subjective Subjective: Pt seen and examined. Doing well. No complaint. Objective - Vital Signs/Intake and Output Vital Signs (last 24 hours): Temp Pulse Resp BP Pulse Ox 98.1 F 74 20 99/65 L 97 07/16/17 16:01 07/16/17 16:01 07/16/17 16:01 07/16/17 16:39 07/16/17 16:01 - Medications Medications: Current Medications Acetaminophen (Tylenol 325mg Tab) 650 mg PO Q6 PRN PRN Reason: Pain, Mild (1-3) Aspirin (Ecotrin) 81 mg PO DAILY [facility] Last Admin: 07/16/17 08:29 Dose: 81 mg Atorvastatin Calcium (Lipitor) 20 mg PO HS [facility] Last Admin: 07/15/17 21:41 Dose: 20 mg Carvedilol (Coreg) 3.125 mg PO DAILY [facility] Last Admin: 07/16/17 08:29 Dose: Not Given Clopidogrel Bisulfate (Plavix) 75 mg PO DAILY [facility] Last Admin: 07/16/17 08:29 Dose: 75 mg Digoxin (Lanoxin) 0.125 mg PO DAILY [facility] Last Admin: 07/16/17 08:30 Dose: 0.125 mg Enoxaparin Sodium (Lovenox) 40 mg SC DAILY [facility] PRN Reason: Protocol Last Admin: 07/16/17 08:28 Dose: 40 mg Furosemide (Lasix) 20 mg PO BID [facility] Last Admin: 07/16/17 16:39 Dose: 20 mg Guaifenesin (Robitussin) 100 mg PO Q6 PRN PRN Reason: Cough Lactulose (Enulose) 20 gm PO DAILY PRN PRN Reason: Constipation Last Admin: 07/13/17 11:10 Dose: 20 gm Levalbuterol HCl (Xopenex) 1.25 mg INH RQ8 PRN PRN Reason: Shortness of Breath Last Admin: 07/16/17 07:41 Dose: 1.25 mg Sertraline HCl (Zoloft) 50 mg PO DAILY [facility] Last Admin: 07/16/17 08:31 Dose: 50 mg Tamsulosin HCl (Flomax) 0.4 mg PO DAILY [facility] Last Admin: 07/16/17 08:30 Dose: 0.4 mg Tiotropium [place] (Spiriva) 18 mcg INH DAILY [facility] Last Admin: 07/16/17 11:35 Dose: 18 mcg Tramadol HCl (Ultram) 50 mg PO Q8H PRN PRN Reason: Pain, severe (8-10) Last Admin: 07/16/17 16:36 Dose: 50 mg - Constitutional Appears: No Acute Distress - Head Exam Head Exam: ATRAUMATIC - Eye Exam Eye Exam: absent: Scleral icterus - ENT Exam ENT Exam: Mucous Membranes Moist - Neck Exam Neck Exam: absent: Meningismus - Respiratory Exam Respiratory Exam: absent: Rhonchi, Wheezes, Respiratory Distress - Cardiovascular Exam Cardiovascular Exam: REGULAR RHYTHM, +S1, +S2 - GI/Abdominal Exam GI & Abdominal Exam: Soft. absent: Tenderness - Rectal Exam Rectal Exam: Deferred - Neurological Exam Neurological Exam: Alert, Oriented x3 - Psychiatric Exam Psychiatric exam: Normal Affect - Skin Skin Exam: Dry, Intact Assessment and Plan - Assessment and Plan (Free Text) Assessment: 71 yo male with history of CAD, CHF, COPD, DM2, HTN and HLD was admitted because of CHF exacerbation. Managed and improved but physically deconditioned. Transferred to TCU for therapy and to improve his strength. 1. CHF exacerbation, systolic dysfunction Dr House on consult continue Coreg, Digoxin and NTG 2. COPD continue Atrovent and Xopenex pulmonology consult with Dr Pandya 3. DM2 BS relatively controlled diabetic diet accuchek with low Lispro coverage 4. CAD continue ASA, Plavix, statin, Coreg and NTG 5. BPH continue Flomax 6. DVT prophylaxis on Lovenox
[2017-07-17 07:13] LABS: HEMOGLOBIN 13.3 g/dL (12.0-18.0); MEAN CELL VOLUME 94.1 fl (80.0-94.0); MEAN CORPUSCULAR HEMOGLOBIN 31.1 pg (27.0-31.0); RBC 4.27 Mil/uL (4.40-5.90); RED CELL DISTRIBUTION WIDTH 13.7 % (11.5-14.5); WHITE BLOOD COUNT 7.6 K/uL (4.8-10.8)
[2017-07-17 07:17] LABS: ALB/GLOB RATIO 1.2 (1.0-2.1); ALT/SGPT 34 U/L (21-72); AST/SGOT 26 U/L (17-59); BLOOD UREA NITROGEN 35 mg/dl (9-20); CALCIUM 9.5 mg/dL (8.4-10.2); GFR AFRICAN-AMERICAN > 60; GFR NON-AFRICAN AMERICAN 55; HDL CHOLESTEROL 20 MG/DL (30-70)
[2017-07-17 07:27] LABS: LDL CHOLESTEROL 50 mg/dL (0-129)
[2017-07-17] MEDS: Digoxin 125 mcg (0.125 mg) Tab PO SCH (09:03)
[2017-07-17] MEDS: Tiotropium 18 mcg Cap For Inhalation INH SCH (09:04)
[2017-07-17] MEDS: Enoxaparin 40 mg Syringe SC SCH (09:04)
--- NOTE | 2017-07-17 11:35 | CP.PCM.PN ---
Subjective - Date & Time of Evaluation Date of Evaluation: 07/17/17 Time of Evaluation: 11:34 - Subjective Subjective: The patient appears comfortable lying in bed although he still complains of dyspnea and fatigue with activity. A 6 minute walk study which was performed yesterday showed a low SPO2 of 92% and a high heart rate of approximately 120 while ambulating on room air. There will be a request for nocturnal SPO2 recording to evaluate for nocturnal hypoxemia which may be suggestive of MARKUS. Objective - Vital Signs/Intake and Output Vital Signs (last 24 hours): Temp Pulse Resp BP Pulse Ox 98.1 F 65 18 101/57 L 100 07/17/17 08:29 07/17/17 09:03 07/17/17 08:29 07/17/17 09:03 07/17/17 08:29 - Medications Medications: Current Medications Acetaminophen (Tylenol 325mg Tab) 650 mg PO Q6 PRN PRN Reason: Pain, Mild (1-3) Aspirin (Ecotrin) 81 mg PO DAILY [facility] Last Admin: 07/17/17 09:03 Dose: 81 mg Atorvastatin Calcium (Lipitor) 20 mg PO HS [facility] Last Admin: 07/16/17 22:11 Dose: 20 mg Carvedilol (Coreg) 3.125 mg PO DAILY [facility] Last Admin: 07/17/17 09:03 Dose: 3.125 mg Clopidogrel Bisulfate (Plavix) 75 mg PO DAILY [facility] Last Admin: 07/17/17 09:04 Dose: 75 mg Digoxin (Lanoxin) 0.125 mg PO DAILY [facility] Last Admin: 07/17/17 09:03 Dose: 0.125 mg Enoxaparin Sodium (Lovenox) 40 mg SC DAILY [facility] PRN Reason: Protocol Last Admin: 07/17/17 09:04 Dose: 40 mg Furosemide (Lasix) 20 mg PO BID [facility] Last Admin: 07/17/17 09:03 Dose: 20 mg Guaifenesin (Robitussin) 100 mg PO Q6 PRN PRN Reason: Cough Lactulose (Enulose) 20 gm PO DAILY PRN PRN Reason: Constipation Last Admin: 07/13/17 11:10 Dose: 20 gm Levalbuterol HCl (Xopenex) 1.25 mg INH RQ8 PRN PRN Reason: Shortness of Breath Last Admin: 07/16/17 07:41 Dose: 1.25 mg Sertraline HCl (Zoloft) 50 mg PO DAILY [facility] Last Admin: 07/17/17 09:04 Dose: 50 mg Tamsulosin HCl (Flomax) 0.4 mg PO DAILY [facility] Last Admin: 07/17/17 09:03 Dose: 0.4 mg Tiotropium [place] (Spiriva) 18 mcg INH DAILY [facility] Last Admin: 07/17/17 09:04 Dose: 18 mcg Tramadol HCl (Ultram) 50 mg PO Q8H PRN PRN Reason: Pain, severe (8-10) Last Admin: 07/17/17 09:09 Dose: 50 mg - Labs Labs: 07/17/17 06:51 07/17/17 06:51 Assessment and Plan (1) Physical deconditioning Status: Acute (2) CAD (coronary artery disease) Status: Chronic (3) CHF (congestive heart failure) Status: Chronic (4) COPD (chronic obstructive pulmonary disease) Status: Chronic (5) DM2 (diabetes mellitus, type 2) Status: Chronic (6) Multiple sclerosis Status: Chronic
[2017-07-17] MEDS ORDERED: Calcium Gluconate 4.65 mEq/10 ml Inj IV ONE (14:19)
[2017-07-17] MEDS ORDERED: Calcium Gluconate 4.6 MEQ in Sodium Chloride 0.9% 100 ML IV ONE (14:45)
[2017-07-17] MEDS ORDERED: Dextrose 50% SYRINGE Inj (50 ml) ONE (15:40)
[2017-07-17] MEDS ORDERED: Insulin Regular 100 units/ml IV ONE (15:45)
[2017-07-17 16:02] VITALS: RESP 20
--- NOTE | 2017-07-17 16:44 | CP.PCM.PN ---
Subjective - Date & Time of Evaluation Date of Evaluation: 07/17/16 Time of Evaluation: 14:00 - Subjective Subjective: NO CHEST PAIN SOB A LITTLE BETTER Objective - Vital Signs/Intake and Output Vital Signs (last 24 hours): Temp Pulse Resp BP Pulse Ox 97.3 F L 68 20 93/41 L 98 07/17/17 16:01 07/17/17 16:05 07/17/17 16:01 07/17/17 16:01 07/17/17 16:05 - Medications Medications: Current Medications Acetaminophen (Tylenol 325mg Tab) 650 mg PO Q6 PRN PRN Reason: Pain, Mild (1-3) Aspirin (Ecotrin) 81 mg PO DAILY [facility] Last Admin: 07/17/17 09:03 Dose: 81 mg Atorvastatin Calcium (Lipitor) 20 mg PO HS [facility] Last Admin: 07/16/17 22:11 Dose: 20 mg Carvedilol (Coreg) 3.125 mg PO DAILY [facility] Last Admin: 07/17/17 09:03 Dose: 3.125 mg Clopidogrel Bisulfate (Plavix) 75 mg PO DAILY [facility] Last Admin: 07/17/17 09:04 Dose: 75 mg Digoxin (Lanoxin) 0.125 mg PO DAILY [facility] Last Admin: 07/17/17 09:03 Dose: 0.125 mg Enoxaparin Sodium (Lovenox) 40 mg SC DAILY [facility] PRN Reason: Protocol Last Admin: 07/17/17 09:04 Dose: 40 mg Guaifenesin (Robitussin) 100 mg PO Q6 PRN PRN Reason: Cough Lactulose (Enulose) 20 gm PO DAILY PRN PRN Reason: Constipation Last Admin: 07/13/17 11:10 Dose: 20 gm Levalbuterol HCl (Xopenex) 1.25 mg INH RQ8 PRN PRN Reason: Shortness of Breath Last Admin: 07/16/17 07:41 Dose: 1.25 mg Sertraline HCl (Zoloft) 50 mg PO DAILY [facility] Last Admin: 07/17/17 09:04 Dose: 50 mg Tamsulosin HCl (Flomax) 0.4 mg PO DAILY [facility] Last Admin: 07/17/17 09:03 Dose: 0.4 mg Tiotropium [employer] (Spiriva) 18 mcg INH DAILY [facility] Last Admin: 07/17/17 09:04 Dose: 18 mcg Tramadol HCl (Ultram) 50 mg PO Q8H PRN PRN Reason: Pain, severe (8-10) Last Admin: 07/17/17 15:33 Dose: 50 mg - Labs Labs: 07/17/17 06:51 07/17/17 06:51 - Respiratory Exam Respiratory Exam: Clear to Ausculation Bilateral - Cardiovascular Exam Cardiovascular Exam: REGULAR RHYTHM, +S1, +S2 - Extremities Exam Additional comments: NO EDEMA - Additional Findings Additional findings: SYSTOLIC BP EARLIER 100 LYING PANDA, 90 SITTING UP AND 80 STANDING BUN/CR 35/1.3 Assessment and Plan - Assessment and Plan (Free Text) Assessment: CAD HYPERTENSION HISTORY- BUT NOW WITH ORTHOSTATIC HYPOTENSION AND BUN/CR CONSISTENT WITH OVERDIURESIS COPD DM DECONDITIONING Plan: DISCONTINUE FUROSEMIDE AND OBSERVE BLOOD PRESSURE VALSARTAN AND NITRATES ALREADY DISCONTINUED IV FLUID NOT STARTED PATIENT HAS LOW LVEF AND RECENTLY HAS ACUTE SYSTOLIC CHF CONTINUE VERY LOW DOSE CARVEDILOL CONTINUE ASPIRIN, CLOPIDOGREL, DIGOXIN, ATORVASTATIN, SPIRIVA AND XOPENEX CONTINUE PHYSICAL THERAPY
[2017-07-18] MEDS: Enoxaparin 40 mg Syringe SC SCH (08:18)
[2017-07-18] MEDS: Digoxin 125 mcg (0.125 mg) Tab PO SCH (08:19)
[2017-07-18] MEDS: Tiotropium 18 mcg Cap For Inhalation INH SCH (08:19)
--- NOTE | 2017-07-18 11:14 | CP.PCM.PN ---
Subjective - Date & Time of Evaluation Date of Evaluation: 07/18/17 Time of Evaluation: 10:30 - Subjective Subjective: Patient seen and examined today during therapy. Participating with PT well. Feeling better, improved. No acute issues overnight.Denies any chest pain , SOB .cough. Objective - Vital Signs/Intake and Output Vital Signs (last 24 hours): Temp Pulse Resp BP Pulse Ox 98.2 F 62 20 104/59 L 100 07/18/17 07:54 07/18/17 08:19 07/18/17 07:54 07/18/17 08:19 07/18/17 07:54 - Medications Medications: Current Medications Acetaminophen (Tylenol 325mg Tab) 650 mg PO Q6 PRN PRN Reason: Pain, Mild (1-3) Aspirin (Ecotrin) 81 mg PO DAILY [facility] Last Admin: 07/18/17 08:19 Dose: 81 mg Atorvastatin Calcium (Lipitor) 20 mg PO HS [facility] Last Admin: 07/17/17 22:40 Dose: 20 mg Carvedilol (Coreg) 3.125 mg PO DAILY [facility] Last Admin: 07/18/17 08:19 Dose: 3.125 mg Clopidogrel Bisulfate (Plavix) 75 mg PO DAILY [facility] Last Admin: 07/18/17 08:18 Dose: 75 mg Digoxin (Lanoxin) 0.125 mg PO DAILY [facility] Last Admin: 07/18/17 08:19 Dose: 0.125 mg Enoxaparin Sodium (Lovenox) 40 mg SC DAILY [facility] PRN Reason: Protocol Last Admin: 07/18/17 08:18 Dose: 40 mg Guaifenesin (Robitussin) 100 mg PO Q6 PRN PRN Reason: Cough Lactulose (Enulose) 20 gm PO DAILY PRN PRN Reason: Constipation Last Admin: 07/18/17 08:20 Dose: 20 gm Levalbuterol HCl (Xopenex) 1.25 mg INH RQ8 PRN PRN Reason: Shortness of Breath Last Admin: 07/16/17 07:41 Dose: 1.25 mg Sertraline HCl (Zoloft) 50 mg PO DAILY [facility] Last Admin: 07/18/17 08:19 Dose: 50 mg Tamsulosin HCl (Flomax) 0.4 mg PO DAILY [facility] Last Admin: 07/18/17 08:19 Dose: 0.4 mg Tiotropium [place] (Spiriva) 18 mcg INH DAILY [facility] Last Admin: 07/18/17 08:19 Dose: 18 mcg Tramadol HCl (Ultram) 50 mg PO Q8H PRN PRN Reason: Pain, severe (8-10) Last Admin: 07/18/17 08:17 Dose: 50 mg - Labs Labs: 07/17/17 06:51 07/17/17 06:51 - Constitutional Appears: Non-toxic, No Acute Distress, Cachectic, Chronically Ill - Head Exam Head Exam: ATRAUMATIC, NORMAL INSPECTION, NORMOCEPHALIC - Eye Exam Eye Exam: EOMI, Normal appearance, PERRL Pupil Exam: NORMAL ACCOMODATION - ENT Exam ENT Exam: Mucous Membranes Moist, Normal Exam - Neck Exam Neck Exam: Full ROM, Normal Inspection - Respiratory Exam Respiratory Exam: Clear to Ausculation Bilateral, NORMAL BREATHING PATTERN. absent: Accessory Muscle Use, Prolonged Expiratory Phase, Rales, Rhonchi, Wheezes, Respiratory Distress - Cardiovascular Exam Cardiovascular Exam: REGULAR RHYTHM, RRR, +S1, +S2. absent: JVD - GI/Abdominal Exam GI & Abdominal Exam: Soft, Normal Bowel Sounds. absent: Distended, Guarding, Tenderness, Rebound - Rectal Exam Rectal Exam: Deferred - Extremities Exam Extremities Exam: Full ROM, Normal Capillary Refill, Normal Inspection. absent : Calf Tenderness, Pedal Edema - Back Exam Back Exam: NORMAL INSPECTION - Neurological Exam Neurological Exam: Alert, Awake, CN II-XII Intact, Normal Gait, Oriented x3 - Psychiatric Exam Psychiatric exam: Normal Affect, Normal Mood - Skin Skin Exam: Dry, Intact, Normal Color, Warm Assessment and Plan - Assessment and Plan (Free Text) Assessment: 71 yo male with history of CAD, CHF EF 15%, COPD and active smoker , DM2, HTN and HLD was admitted because of CHF exacerbation. Managed and improved but physically deconditioned. Transferred to TCU for therapy and to improve his strength. At present participating with PT and improving. 1. CHF exacerbation, systolic dysfunction improved , EF 15 % cardiology has been following patient continue Coreg, Digoxin and NTG discontinued Lasix since BP dropped and developed orthostatic changes 2. COPD continue Atrovent and Xopenex pulmonology consult with Dr Pandya will check SPO2 during sleep as per pulmonary to rule out MARKUS 3. DM2 BS relatively controlled diabetic diet accuchek with low Lispro coverage Resume Metformin 500 mg po bid ( home medication ) 4. CAD continue ASA, Plavix, statin, Coreg and NTG 5. BPH continue Flomax 6. DVT prophylaxis on Lovenox 7. Smoker counselled patient 8. Cachetic BMI 18
--- NOTE | 2017-07-18 11:21 | CP.PCM.PN ---
Subjective - Date & Time of Evaluation Date of Evaluation: 07/18/17 Time of Evaluation: 09:00 - Subjective Subjective: FEELS BETTER TODAY Objective - Vital Signs/Intake and Output Vital Signs (last 24 hours): Temp Pulse Resp BP Pulse Ox 98.2 F 62 20 104/59 L 100 07/18/17 07:54 07/18/17 08:19 07/18/17 07:54 07/18/17 08:19 07/18/17 07:54 - Medications Medications: Current Medications Acetaminophen (Tylenol 325mg Tab) 650 mg PO Q6 PRN PRN Reason: Pain, Mild (1-3) Aspirin (Ecotrin) 81 mg PO DAILY [facility] Last Admin: 07/18/17 08:19 Dose: 81 mg Atorvastatin Calcium (Lipitor) 20 mg PO HS [facility] Last Admin: 07/17/17 22:40 Dose: 20 mg Carvedilol (Coreg) 3.125 mg PO DAILY [facility] Last Admin: 07/18/17 08:19 Dose: 3.125 mg Clopidogrel Bisulfate (Plavix) 75 mg PO DAILY [facility] Last Admin: 07/18/17 08:18 Dose: 75 mg Digoxin (Lanoxin) 0.125 mg PO DAILY [facility] Last Admin: 07/18/17 08:19 Dose: 0.125 mg Enoxaparin Sodium (Lovenox) 40 mg SC DAILY [facility] PRN Reason: Protocol Last Admin: 07/18/17 08:18 Dose: 40 mg Guaifenesin (Robitussin) 100 mg PO Q6 PRN PRN Reason: Cough Lactulose (Enulose) 20 gm PO DAILY PRN PRN Reason: Constipation Last Admin: 07/18/17 08:20 Dose: 20 gm Levalbuterol HCl (Xopenex) 1.25 mg INH RQ8 PRN PRN Reason: Shortness of Breath Last Admin: 07/16/17 07:41 Dose: 1.25 mg Metformin HCl (Glucophage) 500 mg PO BIDWM [facility] Sertraline HCl (Zoloft) 50 mg PO DAILY [facility] Last Admin: 07/18/17 08:19 Dose: 50 mg Tamsulosin HCl (Flomax) 0.4 mg PO DAILY [facility] Last Admin: 07/18/17 08:19 Dose: 0.4 mg Tiotropium [place] (Spiriva) 18 mcg INH DAILY [facility] Last Admin: 07/18/17 08:19 Dose: 18 mcg Tramadol HCl (Ultram) 50 mg PO Q8H PRN PRN Reason: Pain, severe (8-10) Last Admin: 07/18/17 08:17 Dose: 50 mg - Labs Labs: 07/17/17 06:51 07/17/17 06:51 - Respiratory Exam Respiratory Exam: Clear to Ausculation Bilateral - Cardiovascular Exam Cardiovascular Exam: REGULAR RHYTHM, +S1, +S2 - Extremities Exam Extremities Exam: Normal Inspection Assessment and Plan - Assessment and Plan (Free Text) Assessment: CAD WITH LOW LVEF AND RECENT ACUTE SYSTOLIC CHF HYPERTENSION HISTORY COPD DECONDITIONING Plan: CONTINUE LOW DOSE CARVEDILOL, DIGOXIN, ATORVASTATIN, ASPIRIN, CLOPIDOGREL
--- NOTE | 2017-07-18 14:34 | CP.PCM.PN ---
Subjective - Date & Time of Evaluation Date of Evaluation: 07/18/17 Time of Evaluation: 14:32 - Subjective Subjective: The patient appears to be comfortable lying in bed. He does admit to gradual improvement in his ability to perform physical therapy. Overnight pulse oximetry was not performed, and will be rescheduled for tonight. He does appear to be clinically stable at this juncture. Objective - Vital Signs/Intake and Output Vital Signs (last 24 hours): Temp Pulse Resp BP Pulse Ox 98.2 F 62 20 104/59 L 100 07/18/17 07:54 07/18/17 08:19 07/18/17 07:54 07/18/17 08:19 07/18/17 07:54 - Medications Medications: Current Medications Acetaminophen (Tylenol 325mg Tab) 650 mg PO Q6 PRN PRN Reason: Pain, Mild (1-3) Aspirin (Ecotrin) 81 mg PO DAILY [facility] Last Admin: 07/18/17 08:19 Dose: 81 mg Atorvastatin Calcium (Lipitor) 20 mg PO HS [facility] Last Admin: 07/17/17 22:40 Dose: 20 mg Carvedilol (Coreg) 3.125 mg PO DAILY [facility] Last Admin: 07/18/17 08:19 Dose: 3.125 mg Clopidogrel Bisulfate (Plavix) 75 mg PO DAILY [facility] Last Admin: 07/18/17 08:18 Dose: 75 mg Digoxin (Lanoxin) 0.125 mg PO DAILY [facility] Last Admin: 07/18/17 08:19 Dose: 0.125 mg Enoxaparin Sodium (Lovenox) 40 mg SC DAILY [facility] PRN Reason: Protocol Last Admin: 07/18/17 08:18 Dose: 40 mg Guaifenesin (Robitussin) 100 mg PO Q6 PRN PRN Reason: Cough Lactulose (Enulose) 20 gm PO DAILY PRN PRN Reason: Constipation Last Admin: 07/18/17 08:20 Dose: 20 gm Levalbuterol HCl (Xopenex) 1.25 mg INH RQ8 PRN PRN Reason: Shortness of Breath Last Admin: 07/16/17 07:41 Dose: 1.25 mg Metformin HCl (Glucophage) 500 mg PO BIDWM [facility] Sertraline HCl (Zoloft) 50 mg PO DAILY [facility] Last Admin: 07/18/17 08:19 Dose: 50 mg Tamsulosin HCl (Flomax) 0.4 mg PO DAILY [facility] Last Admin: 07/18/17 08:19 Dose: 0.4 mg Tiotropium [place] (Spiriva) 18 mcg INH DAILY [facility] Last Admin: 07/18/17 08:19 Dose: 18 mcg Tramadol HCl (Ultram) 50 mg PO Q8H PRN PRN Reason: Pain, severe (8-10) Last Admin: 07/18/17 08:17 Dose: 50 mg - Labs Labs: 07/17/17 06:51 07/17/17 06:51 Assessment and Plan (1) Physical deconditioning Status: Acute (2) CAD (coronary artery disease) Status: Chronic (3) CHF (congestive heart failure) Status: Chronic (4) COPD (chronic obstructive pulmonary disease) Status: Chronic (5) DM2 (diabetes mellitus, type 2) Status: Chronic (6) Multiple sclerosis Status: Chronic
[2017-07-18 20:19] VITALS: TEMP 97.9; O2SAT 98
[2017-07-19] MEDS: Digoxin 125 mcg (0.125 mg) Tab PO SCH (09:20)
[2017-07-19] MEDS: Enoxaparin 40 mg Syringe SC SCH (09:20)
[2017-07-19 09:21] VITALS: PULSE 84
[2017-07-19] MEDS: Tiotropium 18 mcg Cap For Inhalation INH SCH (09:21)
--- NOTE | 2017-07-19 10:27 | CP.PCM.DIS ---
Provider - Provider Date of Admission: 07/10/17 17:13 Attending physician: Miguel Childers MD Primary care physician: Dr. House Consults: cardiology pulmonary Time Spent in preparation of Discharge (in minutes): 15 Hospital Course - Lab Results Lab Results: Most Recent Lab Values WBC 7.6 K/uL (4.8-10.8) 07/17/17 06:51 RBC 4.27 Mil/uL (4.40-5.90) L 07/17/17 06:51 Hgb 13.3 g/dL (12.0-18.0) 07/17/17 06:51 Hct 40.2 % (35.0-51.0) 07/17/17 06:51 MCV 94.1 fl (80.0-94.0) H 07/17/17 06:51 MCH 31.1 pg (27.0-31.0) H 07/17/17 06:51 MCHC 33.0 g/dL (33.0-37.0) 07/17/17 06:51 RDW 13.7 % (11.5-14.5) 07/17/17 06:51 Plt Count 255 K/uL (130-400) 07/17/17 06:51 Sodium 137 mmol/l (132-148) 07/17/17 06:51 Potassium 5.4 MMOL/L (3.6-5.0) H 07/17/17 06:51 Chloride 96 mmol/L (98-107) L 07/17/17 06:51 Carbon Dioxide 31 mmol/L (22-30) H 07/17/17 06:51 Anion Gap 15 (10-20) 07/17/17 06:51 BUN 35 mg/dl (9-20) H 07/17/17 06:51 Creatinine 1.3 mg/dl (0.8-1.5) 07/17/17 06:51 Est GFR ( Amer) > 60 07/17/17 06:51 Est GFR (Non-Af Amer) 55 07/17/17 06:51 POC Glucose (mg/dL) 129 mg/dL (65-110) H 07/19/17 07:13 Random Glucose 127 mg/dL (75-110) H 07/17/17 06:51 Hemoglobin A1c 7.2 % (4.2-6.5) H 07/17/17 06:51 Calcium 9.5 mg/dL (8.4-10.2) 07/17/17 06:51 Total Bilirubin 0.6 mg/dl (0.2-1.3) 07/17/17 06:51 AST 26 U/L (17-59) 07/17/17 06:51 ALT 34 U/L (21-72) 07/17/17 06:51 Alkaline Phosphatase 60 U/L (38-126) 07/17/17 06:51 Total Protein 7.4 G/DL (6.3-8.2) 07/17/17 06:51 Albumin 4.0 g/dL (3.5-5.0) 07/17/17 06:51 Globulin 3.4 gm/dL (2.2-3.9) 07/17/17 06:51 Albumin/Globulin Ratio 1.2 (1.0-2.1) 07/17/17 06:51 Triglycerides 114 mg/DL (0-149) 07/17/17 06:51 Cholesterol 99 mg/dL (0-199) 07/17/17 06:51 LDL Cholesterol Direct 50 mg/dL (0-129) 07/17/17 06:51 HDL Cholesterol 20 MG/DL (30-70) L 07/17/17 06:51 - Hospital Course Hospital Course: 71 yo male with history of CAD, CHF EF 15%, COPD and active smoker , DM2, HTN and HLD was admitted because of CHF exacerbation. Managed and improved but physically deconditioned. Transferred to TCU for therapy and to improve his strength. He participated with PT and improved.Will discharge patient home today Follow up with chief accountant and pulmonary. 1. CHF exacerbation, systolic dysfunction improved , EF 15 % cardiology has been following patient continue Coreg, Digoxin and NTG discontinued Lasix since BP dropped and developed orthostatic changes 2. COPD continue Atrovent and Xopenex pulmonary consult with Dr Pandya appreciated counselled patient to stop smoking 3. DM2 BS relatively controlled diabetic diet accuchek with low Lispro coverage Resumed Metformin 500 mg po bid ( home medication ) 4. CAD continue ASA, Plavix, statin, Coreg and NTG 5. BPH continue Flomax 6. DVT prophylaxis on Lovenox 7. Smoker counselled patient 8. Cachetic BMI 18 Discharge Exam - Head Exam Head Exam: ATRAUMATIC, NORMAL INSPECTION, NORMOCEPHALIC Additional comments: cachetic - Eye Exam Eye Exam: Normal appearance, PERRL Pupil Exam: NORMAL ACCOMODATION - ENT Exam ENT Exam: Mucous Membranes Moist, Normal Exam - Neck Exam Neck exam: Full Rom, Normal Inspection - Respiratory Exam Respiratory Exam: Clear to PA & Lateral, Rhonchi (scattered rhonchi ), NORMAL BREATHING PATTERN. absent: Wheezes, Respiratory Distress - Cardiovascular Exam Cardiovascular Exam: REGULAR RHYTHM, RRR, +S1, +S2. absent: JVD - GI/Abdominal Exam GI & Abdominal Exam: Normal Bowel Sounds, Soft. absent: Distended, Guarding, Rebound, Tenderness - Rectal Exam Rectal Exam: Deferred - Extremities Exam Extremities exam: normal capillary refill, normal inspection, pedal pulses present - Back Exam Back exam: NORMAL INSPECTION - Neurological Exam Neurological exam: Alert, CN II-XII Intact, Oriented x3, Reflexes Normal - Psychiatric Exam Psychiatric exam: Normal Affect, Normal Mood - Skin Skin Exam: Dry, Intact, Normal Color, Warm Discharge Plan - Discharge Medications Prescriptions: Aspirin [Ecotrin] 81 mg PO DAILY #100 tabec Atorvastatin [Lipitor] 20 mg PO DAILY #30 tab Carvedilol [Coreg] 3.125 mg PO DAILY #30 tab Clopidogrel [Plavix] 75 mg PO DAILY #30 tab Digoxin [Lanoxin] 0.125 mg PO DAILY #30 tab metFORMIN [glucOPHAGE] 500 mg PO BIDWM #60 tab Sertraline [Zoloft] 50 mg PO DAILY #30 tab Tamsulosin [Flomax] 0.4 mg PO DAILY #30 cap Tiotropium [Spiriva] 18 mcg INH DAILY #100 cap traMADol [Ultram] 50 mg PO TID #20 tab - Follow Up Plan Condition: IMPROVED Disposition: HOME/ ROUTINE Patient education suggested?: Yes Referrals: Maximo House MD [Staff Provider] -
--- NOTE | 2017-07-19 10:28 | CP.PCM.PN ---
Subjective - Date & Time of Evaluation Date of Evaluation: 07/19/17 Time of Evaluation: 10:00 - Subjective Subjective: NO CHEST PAIN BREATHING SOMEWHAT BETTER Objective - Vital Signs/Intake and Output Vital Signs (last 24 hours): Temp Pulse Resp BP Pulse Ox 97.9 F 84 20 119/54 L 98 07/19/17 08:14 07/19/17 09:19 07/19/17 08:14 07/19/17 09:19 07/19/17 08:14 - Medications Medications: Current Medications Acetaminophen (Tylenol 325mg Tab) 650 mg PO Q6 PRN PRN Reason: Pain, Mild (1-3) Aspirin (Ecotrin) 81 mg PO DAILY [facility] Last Admin: 07/19/17 09:20 Dose: 81 mg Atorvastatin Calcium (Lipitor) 20 mg PO HS [facility] Last Admin: 07/18/17 21:17 Dose: 20 mg Carvedilol (Coreg) 3.125 mg PO DAILY [facility] Last Admin: 07/19/17 09:19 Dose: 3.125 mg Clopidogrel Bisulfate (Plavix) 75 mg PO DAILY [facility] Last Admin: 07/19/17 09:20 Dose: 75 mg Digoxin (Lanoxin) 0.125 mg PO DAILY [facility] Last Admin: 07/19/17 09:20 Dose: 0.125 mg Enoxaparin Sodium (Lovenox) 40 mg SC DAILY [facility] PRN Reason: Protocol Last Admin: 07/19/17 09:20 Dose: 40 mg Guaifenesin (Robitussin) 100 mg PO Q6 PRN PRN Reason: Cough Lactulose (Enulose) 20 gm PO DAILY PRN PRN Reason: Constipation Last Admin: 07/18/17 08:20 Dose: 20 gm Levalbuterol HCl (Xopenex) 1.25 mg INH RQ8 PRN PRN Reason: Shortness of Breath Last Admin: 07/16/17 07:41 Dose: 1.25 mg Metformin HCl (Glucophage) 500 mg PO BIDWM [facility] Last Admin: 07/19/17 09:19 Dose: 500 mg Sertraline HCl (Zoloft) 50 mg PO DAILY [facility] Last Admin: 07/19/17 09:21 Dose: 50 mg Tamsulosin HCl (Flomax) 0.4 mg PO DAILY [facility] Last Admin: 07/19/17 09:19 Dose: 0.4 mg Tiotropium [place] (Spiriva) 18 mcg INH DAILY [facility] Last Admin: 07/19/17 09:21 Dose: 18 mcg Tramadol HCl (Ultram) 50 mg PO Q8H PRN PRN Reason: Pain, severe (8-10) Last Admin: 07/19/17 09:30 Dose: 50 mg - Labs Labs: 07/17/17 06:51 07/17/17 06:51 - Respiratory Exam Respiratory Exam: Clear to Ausculation Bilateral - Cardiovascular Exam Cardiovascular Exam: REGULAR RHYTHM, +S1, +S2 - Extremities Exam Additional comments: NO SIGNIFICANT LE EDEMA Assessment and Plan - Assessment and Plan (Free Text) Assessment: CAD RECENT ACUTE SYSTOLIC CHF-TREATED COPD DECONDITIONING Plan: CONTINUE CARVEDILOL, ATORVASTATIN, ASPIRIN, CLOPIDOGREL AND BRONCHODILATORS CONTINUE PHYSICAL THERAPY FOR DISCHARGE TO HOME
[2017-07-19 10:50] VITALS: BP 113/47; PULSE 56
--- NOTE | 2017-07-19 11:20 | CP.PCM.PN ---
Subjective - Date & Time of Evaluation Date of Evaluation: 07/19/17 Time of Evaluation: 11:20 Objective - Vital Signs/Intake and Output Vital Signs (last 24 hours): Temp Pulse Resp BP Pulse Ox 97.9 F 56 L 20 113/47 L 98 07/19/17 10:00 07/19/17 10:00 07/19/17 10:00 07/19/17 10:00 07/19/17 10:00 - Medications Medications: Current Medications Acetaminophen (Tylenol 325mg Tab) 650 mg PO Q6 PRN PRN Reason: Pain, Mild (1-3) Aspirin (Ecotrin) 81 mg PO DAILY [facility] Last Admin: 07/19/17 09:20 Dose: 81 mg Atorvastatin Calcium (Lipitor) 20 mg PO HS [facility] Last Admin: 07/18/17 21:17 Dose: 20 mg Carvedilol (Coreg) 3.125 mg PO DAILY [facility] Last Admin: 07/19/17 09:19 Dose: 3.125 mg Clopidogrel Bisulfate (Plavix) 75 mg PO DAILY [facility] Last Admin: 07/19/17 09:20 Dose: 75 mg Digoxin (Lanoxin) 0.125 mg PO DAILY [facility] Last Admin: 07/19/17 09:20 Dose: 0.125 mg Enoxaparin Sodium (Lovenox) 40 mg SC DAILY [facility] PRN Reason: Protocol Last Admin: 07/19/17 09:20 Dose: 40 mg Guaifenesin (Robitussin) 100 mg PO Q6 PRN PRN Reason: Cough Lactulose (Enulose) 20 gm PO DAILY PRN PRN Reason: Constipation Last Admin: 07/18/17 08:20 Dose: 20 gm Levalbuterol HCl (Xopenex) 1.25 mg INH RQ8 PRN PRN Reason: Shortness of Breath Last Admin: 07/16/17 07:41 Dose: 1.25 mg Metformin HCl (Glucophage) 500 mg PO BIDWM [facility] Last Admin: 07/19/17 09:19 Dose: 500 mg Sertraline HCl (Zoloft) 50 mg PO DAILY [facility] Last Admin: 07/19/17 09:21 Dose: 50 mg Tamsulosin HCl (Flomax) 0.4 mg PO DAILY [facility] Last Admin: 07/19/17 09:19 Dose: 0.4 mg Tiotropium [place] (Spiriva) 18 mcg INH DAILY [facility] Last Admin: 07/19/17 09:21 Dose: 18 mcg Tramadol HCl (Ultram) 50 mg PO Q8H PRN PRN Reason: Pain, severe (8-10) Last Admin: 07/19/17 09:30 Dose: 50 mg - Labs Labs: 07/17/17 06:51 07/17/17 06:51 Assessment and Plan (1) Physical deconditioning Status: Acute (2) CAD (coronary artery disease) Status: Chronic (3) CHF (congestive heart failure) Status: Chronic (4) COPD (chronic obstructive pulmonary disease) Status: Chronic (5) DM2 (diabetes mellitus, type 2) Status: Chronic (6) Multiple sclerosis Status: Chronic
== END 2017-07-19 13:25 | disposition home health service (06) | DRG 292 ==
LOC: H.TCU 17:13
PROC: F07Z9FZ Gait Training/Functional Ambulation Treatment using Assistive, Adaptive, Supportive or Protective Equipment (ICD-10-PCS; principal; 2017-07-10)
PROC: F08Z4FZ Home Management Treatment using Assistive, Adaptive, Supportive or Protective Equipment (ICD-10-PCS; 2017-07-10)
PROC: F07M6FZ Therapeutic Exercise Treatment of Musculoskeletal System - Whole Body using Assistive, Adaptive, Supportive or Protective Equipment (ICD-10-PCS; 2017-07-11)
DX: I11.0 Hypertensive heart disease with heart failure (principal); R64 Cachexia; I50.23 Acute on chronic systolic (congestive) heart failure; G35 Multiple sclerosis; Z68.1 Body mass index [BMI] 19.9 or less, adult; I25.10 Atherosclerotic heart disease of native coronary artery without angina pectoris; I95.1 Orthostatic hypotension; J43.9 Emphysema, unspecified; E11.9 Type 2 diabetes mellitus without complications; E78.5 Hyperlipidemia, unspecified; F17.210 Nicotine dependence, cigarettes, uncomplicated; F32.9 Major depressive disorder, single episode, unspecified; N40.0 Benign prostatic hyperplasia without lower urinary tract symptoms; I25.2 Old myocardial infarction; F41.9 Anxiety disorder, unspecified; Z86.73 Personal history of transient ischemic attack (TIA), and cerebral infarction without residual deficits; Z95.5 Presence of coronary angioplasty implant and graft; Z79.84 Long term (current) use of oral hypoglycemic drugs; Z88.6 Allergy status to analgesic agent; Z88.0 Allergy status to penicillin

== ENCOUNTER 2017-09-17 14:33 | Observation (INO) | payer MEDICARE, OTHER ==
[2017-09-17 14:33] VITALS: BMI 18.5
--- NOTE | 2017-09-17 15:20 | ED PDOC ---
HPI:STROKE - Notes: Notes:: 71yo M with PMHx CVA, CAD (x3 stents), MS, HTN, HLD, DM c/o left arm weakness. LHD, left arm weakness upon waking up from sleep. Sensation intact and able to move finger. Decreased strength and category planner strength. Denies slurring speech, vision change, facial droop, other focal weakness, fecal/urinary incontinence. Denies chest pain, SOB, abd pain, urinary/fecal complaints. No sick contacts. Not on any meds for MS. Baseline ambulation with cane and leg bracing. Took all meds today PCP Nai Pandya Neuro none NIHSS Stroke Scale - Date/Time Evaluation Performed Date Performed: 09/17/17 Time Performed: 15:20 When Was NIHSS Performed: Baseline - How Severe is the Stroke Level of Consciousness: 0=Alert LOC to Questions: 0=Both comments correct LOC to commands: 1=Obeys one correctly (Not able to squeeze left hand) Best Gaze: 0=Normal Visual: 0=No visual loss Facial: 0=Normal Motor Arm - Left: 4=No movement Motor Arm - Right: 0=No drift Motor Leg - Left: 0=No drift Motor Leg - Right: 0=No drift Limb Ataxia: 0=Absent Sensory: 0=Normal Best Language: 0=No aphasia Dysarthia: 0=Normal articulation Extinction & Inattention (Neglect): 0=Normal, no object Score: 5 rTPA Inclusion/Exclusion - Inclusion Criteria for Altepase Patient is 18 years or Older: Yes The Clinical Diagnosis of Ischemic Stroke That is Causing a Potentially Disabling Neurological Deficit: No Time of Onset is Well Established to be Less Than 270 Minute Before Treatment Would Begin: No Risk/Benefit Discussed With Patient/Family Member Present: No - Warning to TPA With Conditions Condition: Stroke Serevity Too Mild Past Medical History Reviewed: Historical Data, Nursing Documentation, Vital Signs Vital Signs: Last Vital Signs Temp 97 F L 09/17/17 14:35 Pulse 90 09/17/17 14:35 Resp 18 09/17/17 14:35 BP 118/83 09/17/17 14:35 Pulse Ox 96 09/17/17 14:35 - Medical History PMH: Anemia, Anxiety, Asthma, CAD, Cardia Arrhythmia, CHF, COPD, CVA, Depression , Diabetes, Emphysema, Fractures (b/l feet), HTN, Hypercholesterolemia, Hyperlipidemia, Multiple Sclerosis (???), TIA Denies: Bronchitis, HIV, Chronic Kidney Disease - Surgical History Surgical History: Cholecystectomy, Coronary Stent (x3) Denies: CABG - Family History Family History: States: Unknown Family Hx, Diabetes - Home Medications Home Medications: Ambulatory Orders Medication Instructions Recorded Aspirin [Ecotrin] 81 mg PO DAILY #100 tabec 07/19/17 Atorvastatin [Lipitor] 20 mg PO DAILY #30 tab 07/19/17 Clopidogrel [Plavix] 75 mg PO DAILY #30 tab 07/19/17 Digoxin 0.125 mg PO DAILY #30 tab 07/19/17 Sertraline [Zoloft] 50 mg PO DAILY #30 tab 07/19/17 Tamsulosin [Flomax] 0.4 mg PO DAILY #30 cap 07/19/17 Tiotropium [Spiriva] 18 mcg INH DAILY #100 cap 07/19/17 traMADol [Ultram] 50 mg PO TID #20 tab 07/19/17 Glyburide/Metformin HCl 1 tab PO BID 09/17/17 [Glyburide-Metformin 2.5-500 mg] Metoprolol Succinate [Toprol XL] 25 mg PO DAILY 09/17/17 Ropinirole HCl [Requip] 0.5 mg PO Q8 09/17/17 - Allergies Allergies/Adverse Reactions: Allergies Allergy/AdvReac Type Severity Reaction Status Date / Time ampicillin Allergy ANAPHYLAXIS Verified 07/10/17 16:05 codeine AdvReac HEADACHE Verified 07/10/17 16:05 Review of Systems ROS Statement: Except As Marked, All Systems Reviewed And Found Negative Neurological: Positive for: Weakness (LUE) Physical Exam - Reviewed Nursing Documentation Reviewed: Yes Vital Signs Reviewed: Yes - Physical Exam Appears: Positive for: Well, Non-toxic Head Exam: Positive for: ATRAUMATIC, NORMAL INSPECTION Skin: Positive for: Warm, Dry Eye Exam: Positive for: EOMI, PERRL ENT: Negative for: Pharyngeal Erythema, Tonsillar Exudate Neck: Positive for: Normal, Painless ROM, Supple Cardiovascular/Chest: Positive for: Regular Rate, Rhythm, Chest Non Tender Respiratory: Positive for: Normal Breath Sounds. Negative for: Decreased Breath Sounds Gastrointestinal/Abdominal: Positive for: Normal Exam, Bowel Sounds, Soft. Negative for: Tenderness Back: Positive for: Normal Inspection Extremity: Positive for: Normal ROM. Negative for: Tenderness, Pedal Edema DTR - Knee (R): 2+ DTR - Knee (L): 2+ Lymphatic: Negative for: Adenopathy Neurologic/Psych: Positive for: Alert, safety and security officer II-XII, Oriented, Motor/Sensory Deficits (LUE 2/5), Cerebellar Tests (not assessed), Gait (not assessed). Negative for: Aphasia, Facial Droop Comments: left foot clonus 3 beats - Laboratory Results Result Diagrams: 09/17/17 15:35 09/17/17 15:35 - ECG O2 Sat by Pulse Oximetry: 96 Medical Decision Making Medical Decision Makin DDx CVA, MS flare, UTI, PA EKG CXR CBC, CMP, Mg, Phos, troponin, lipid panel, HgbA1c, PT/PTT, T/S CT head wo cont NS 100cc/hr swallow eval [address] head WNL unremarkable CBC, CMP, Mg, Phos, troponin c/s NS Dr. Arellano, rec solumedrol 1gm IV x1, MRI brain w/wo cont, MRA neck, CT head wo cont in 24hr. c/w aspirin and plavix admit to hospitalist Disposition - Clinical Impression Clinical Impression: Left arm weakness - Disposition Disposition Time: 17:51 Condition: STABLE Forms: [employer] (Ecuadorean)
--- NOTE | 2017-09-17 15:34 | RAD ---
HISTORY: Code Stroke COMPARISON: Chest radiograph dated 07/10/2017 FINDINGS: LUNGS: No active pulmonary disease. PLEURA: No significant pleural effusion identified, no pneumothorax apparent. CARDIOVASCULAR: Atherosclerotic aortic calcifications. Cardiomediastinal silhouette stably prominent. OSSEOUS STRUCTURES: Unchanged. VISUALIZED UPPER ABDOMEN: Right upper quadrant surgical clips redemonstrated. OTHER FINDINGS: None. IMPRESSION: No active disease.
[2017-09-17 15:55] LABS: BASO % 0.3 % (0.0-2.0); EOS # 0.3 K/uL (0.0-0.7); EOS % 3.8 % (0.0-4.0); HEMOGLOBIN 13.4 g/dL (12.0-18.0); LYMPH # 2.2 K/uL (1.0-4.3); LYMPH % 25.8 % (20.0-40.0); MEAN CELL VOLUME 93.3 fl (80.0-94.0); MEAN CORPUSCULAR HEMOGLOBIN 31.3 pg (27.0-31.0); MEAN CORPUSCULAR HGB CONC 33.6 g/dL (33.0-37.0); MEAN PLATELET VOLUME 7.6 fl (7.2-11.7); MONO # 0.6 K/uL (0.0-0.8); MONO % 7.4 % (0.0-10.0); NEUT # 5.2 K/uL (1.8-7.0); NEUT % 62.7 % (50.0-75.0); NRBC % 0.2 % (0.0-0.0); RBC 4.29 Mil/uL (4.40-5.90); RED CELL DISTRIBUTION WIDTH 15.1 % (11.5-14.5); WHITE BLOOD COUNT 8.3 K/uL (4.8-10.8)
[2017-09-17 16:06] LABS: INR 1.3 (0.9-1.2); PARTIAL THROMBOPLASTIN TIME 34.5 Seconds (25.6-37.1); PROTHROMBIN TIME 14.4 Seconds (9.8-13.1)
[2017-09-17 16:08] LABS: ALB/GLOB RATIO 1.1 (1.0-2.1); ALBUMIN 3.7 g/dL (3.5-5.0); ALT/SGPT 29 U/L (21-72); AST/SGOT 19 U/L (17-59); BLOOD UREA NITROGEN 7 mg/dl (9-20); CALCIUM 9.4 mg/dL (8.4-10.2); GFR AFRICAN-AMERICAN > 60; GFR NON-AFRICAN AMERICAN > 60; HDL CHOLESTEROL 20 MG/DL (30-70)
[2017-09-17 16:18] LABS: LDL CHOLESTEROL 101 mg/dL (0-129)
--- NOTE | 2017-09-17 16:41 | CT ---
PROCEDURE: CT HEAD WITHOUT CONTRAST. HISTORY: code stroke COMPARISON: None available. TECHNIQUE: Axial computed tomography images were obtained through the head/brain without intravenous contrast. Radiation dose: Total exam DLP = 965.07 mGy-cm. This CT exam was performed using one or more of the following dose reduction techniques: Automated exposure control, adjustment of the mA and/or kV according to patient size, and/or use of iterative reconstruction technique. FINDINGS: HEMORRHAGE: No intracranial hemorrhage. BRAIN: Good corticomedullary differentiation is seen. Diffuse expansion of the ventriculosulcal and cisternal spaces is appreciated with white matter lucency compatible with diffuse cerebral atrophy and chronic microangiopathy. Limited atherosclerotic changes seen the bilateral cavernous internal carotid artery segments at the skullbase. No suspicious extra-axial fluid collection is identified and the midline brain anatomy appears grossly nonfocal as imaged. There is no mass effect throughout. VENTRICLES: Unremarkable. No hydrocephalus. CALVARIUM: Unremarkable. PARANASAL SINUSES: Unremarkable as visualized. No significant inflammatory changes. MASTOID AIR CELLS: Unremarkable as visualized. No inflammatory changes. OTHER FINDINGS: None. IMPRESSION: No definite acute intracranial findings by standard CT criteria. Age-related degenerative change are identified instead. Follow-up CT or MRI are available as clinically warranted.
[2017-09-17] MEDS ORDERED: methylPREDNISolone 1 GM in Sodium Chloride 0.9% 250 ML IV ONE (18:17)
--- NOTE | 2017-09-17 19:08 | CP.PCM.HP ---
History of Present Illness - History of Present Illness History of Present Illness: CC: left arm weakness This is a 71 yo male with a pmh significant for CVA, CAD with 3 stents and history of NE, multiple sclerosis (currently not on steroids chronically), hypertension, Type 2 DM controlled with oral medications, who presented to the ED with the complaint of left arm weakness this morning upon waking up. He states that he is able to move his fingers and sensation is completely intact. He denies having problems with his arm in the past, although he admits to having leg weakness years ago due to his multiple sclerosis. Denies fecal or urinary incontinence. No recent illnesses. Currently not on any medications for multiple sclerosis. In the ED, there was concern for CVA. Stat CT head was done showing periventricular white matter changes but no evidence of CVA or bleed. laboratory workup is unremarkable other than borderline hypertriglyceridemia. Dr. Arellano was consulted for neurology and recommended MRI and MRA of the brain, Solu-medrol 1 gram IV, and tele/obs. Patient denies chest pain, shortness of breath, fevers, chills, nausea, vomiting, diarrhea, headache. All of the patient 's questions were answered at the bedside. Present on Admission - Present on Admission Any Indicators Present on Admission: No Review of Systems - Review of Systems Review of Systems: A 12 point review of systems was conducted and found to be negative other than what was mentioned in the HPI. Past Patient History - Infectious Disease Hx of Infectious Diseases: None - Tetanus Immunizations Tetanus Immunization: Unknown - Past Medical History & Family History Past Medical History?: Yes - Past Social History Smoking Status: Light Smoker < 10 Cigarettes Daily - CARDIAC Hx Cardia Arrhythmia: Yes Hx Congestive Heart Failure: Yes Hx Hypercholesterolemia: Yes Hx Hypertension: Yes - PULMONARY Hx Asthma: Yes Hx Bronchitis: No Hx Chronic Obstructive Pulmonary Disease (COPD): Yes Hx Emphysema: Yes - NEUROLOGICAL Hx Multiple Sclerosis: Yes (???) Hx Transient Ischemic Attacks (TIA): Yes - HEENT Hx HEENT Problems: Yes - RENAL Hx Chronic Kidney Disease: No - ENDOCRINE/METABOLIC Hx Endocrine Disorders: Yes Hx Diabetes Mellitus Type 2: Yes - HEMATOLOGICAL/ONCOLOGICAL Hx Anemia: Yes Hx Human Immunodeficiency Virus (HIV): No - INTEGUMENTARY Hx Dermatological Problems: No - MUSCULOSKELETAL/RHEUMATOLOGICAL Hx Fractures: Yes (b/l feet) - GASTROINTESTINAL Hx Gastrointestinal Disorders: No - GENITOURINARY/GYNECOLOGICAL Hx Genitourinary Disorders: No - PSYCHIATRIC Hx Anxiety: Yes Hx Depression: Yes - SURGICAL HISTORY Hx Cholecystectomy: Yes Hx Coronary Artery Bypass Graft: No Hx Coronary Stent: Yes (x3) - ANESTHESIA Hx Anesthesia: Yes Hx Anesthesia Reactions: No Hx Malignant Hyperthermia: No Meds Allergies/Adverse Reactions: Allergies Allergy/AdvReac Type Severity Reaction Status Date / Time ampicillin Allergy ANAPHYLAXIS Verified 07/10/17 16:05 codeine AdvReac HEADACHE Verified 07/10/17 16:05 Physical Exam - Additional Findings Additional findings: Physical exam: Constitutional- cooperative, awake, alert Head- NCAT, PERRL Eye- PERRL, EOMI ENT- normal exam, MMM. Neck- normal inspection, supple, no JVD Respiratory- CTAB, minimal wheezine, no rales rhonchi Cardiovascular- RRR, +S1, +S2 no MRG GI/Abdominal- normal bowel sounds, soft, no mass, no hsm Skin- warm, dry Extremities Exam- normal capillary refill, normal inspection Neurological Exam- Left arm 4/5 muscle strength, other 3 extremities 5/5 muscle strength, CN II-XII intact. alert, awake, oriented Psych- normal mood, normal affect Results - Vital Signs Recent Vital Signs: Last Vital Signs Temp 97 F L 09/17/17 14:35 Pulse 90 09/17/17 14:35 Resp 18 09/17/17 14:35 BP 118/83 09/17/17 14:35 Pulse Ox 96 09/17/17 18:19 - Labs Result Diagrams: 09/17/17 15:35 09/17/17 15:35 Labs: Laboratory Results - last 24 hr 09/17/17 09/17/17 09/17/17 15:35 15:35 15:35 WBC 8.3 RBC 4.29 L Hgb 13.4 Hct 40.0 MCV 93.3 MCH 31.3 H MCHC 33.6 RDW 15.1 H Plt Count 226 MPV 7.6 Neut % (Auto) 62.7 Lymph % (Auto) 25.8 Smyth % (Auto) 7.4 Eos % (Auto) 3.8 Baso % (Auto) 0.3 Neut # (Auto) 5.2 Lymph # (Auto) 2.2 Smyth # (Auto) 0.6 Eos # (Auto) 0.3 Baso # (Auto) 0.0 PT 14.4 H INR 1.3 H APTT 34.5 Sodium 143 Potassium 3.6 Chloride 103 Carbon Dioxide 27 Anion Gap 17 BUN 7 L Creatinine 1.0 Est GFR ( Amer) > 60 Est GFR (Non-Af Amer) > 60 Random Glucose 111 H Calcium 9.4 Total Bilirubin 0.4 AST 19 ALT 29 Alkaline Phosphatase 72 Troponin I 0.0320 Total Protein 7.1 Albumin 3.7 Globulin 3.3 Albumin/Globulin Ratio 1.1 Triglycerides 180 H D Cholesterol 139 LDL Cholesterol Direct 101 HDL Cholesterol 20 L Blood Type Antibody Screen BBK History Checked 09/17/17 15:35 WBC RBC Hgb Hct MCV MCH MCHC RDW Plt Count MPV Neut % (Auto) Lymph % (Auto) Smyth % (Auto) Eos % (Auto) Baso % (Auto) Neut # (Auto) Lymph # (Auto) Smyth # (Auto) Eos # (Auto) Baso # (Auto) PT INR APTT Sodium Potassium Chloride Carbon Dioxide Anion Gap BUN Creatinine Est GFR ( Amer) Est GFR (Non-Af Amer) Random Glucose Calcium Total Bilirubin AST ALT Alkaline Phosphatase Troponin I Total Protein Albumin Globulin Albumin/Globulin Ratio Triglycerides Cholesterol LDL Cholesterol Direct HDL Cholesterol Blood Type A POSITIVE Antibody Screen Negative BBK History Checked Patient has bt Assessment & Plan - Assessment and Plan (Free Text) Plan: ASSESSMENT/PLAN This is a 71 yo male with a pmh significant for CVA, CAD with 3 stents and history of NE, multiple sclerosis (currently not on steroids chronically), hypertension, Type 2 DM controlled with oral medications, who presented to the ED with sudden onset left arm weakness, r/o CVA, r/o MS exacerbation 1) sudden onset left arm weakness, r/o CVA, r/o MS exacerbation - Place on telemetry/observation - Consultation with Dr. Arellano, neurology- recommends MRI with and without contrast, however patient states he will refuse any MRI due to claustrophobia. When offered sedation during the MRI, he said that will not matter and he adamantly is refusing. - Neuro checks q 4 hours - Continue IV Solu-medrol 1 gram daily - Requip 2) CAD/hyperlipidemia - Continue ASA 81 mg po daily - Continue Lipitor 20 mg po daily - Continue Plavix 75 mg po daily 3) Type 2 DM - Regular insulin sliding sale with accucheks - Glyburide/Metformin 4) CHF hx - Digoxin 0.125 mg po daily - Cardiology consultation with Dr. House 5) Essential hypertension - Continue Toprol 25 mg po daily 6) COPD, at baseline - Continue Spiriva - Steroids as above 7) DVT prophylaxis - Heparin SQ
[2017-09-17] MEDS: Sodium Chloride 0.9% 1,000 ML IV SCH ×2 (19:10→23:04)
[2017-09-17] MEDS: Insulin Regular 100 units/ml SC SCH (23:05)
--- NOTE | 2017-09-17 23:52 | CP.PCM.CON ---
History of Present Illness - History of Present Illness History of Present Illness: Mr. Blakely is a 71-year-old man with a past medical history of previous ischemic stroke, [place], s/p 3 stents, MS (not on prophylactic medications and not following with neurologist), DM who states that he woke up with left arm weakness with preserved sensation. He refused MRI due to severe clausterphobia and stated that he felt that this was similar to previous MS flares. We discussed starting solumedrol and he agreed. CT scan of the head did not show any acute findings, but there was significant white matter disease. Review of Systems - Review of Systems All systems: reviewed and no additional remarkable complaints except Past Patient History - Infectious Disease Hx of Infectious Diseases: None - Tetanus Immunizations Tetanus Immunization: Unknown - Past Medical History & Family History Past Medical History?: Yes - Past Social History Smoking Status: Light Smoker < 10 Cigarettes Daily - CARDIAC Hx Cardia Arrhythmia: Yes Hx Congestive Heart Failure: Yes Hx Hypercholesterolemia: Yes Hx Hypertension: Yes - PULMONARY Hx Asthma: Yes Hx Bronchitis: No Hx Chronic Obstructive Pulmonary Disease (COPD): Yes Hx Emphysema: Yes - NEUROLOGICAL Hx Multiple Sclerosis: Yes (???) Hx Transient Ischemic Attacks (TIA): Yes - HEENT Hx HEENT Problems: Yes - RENAL Hx Chronic Kidney Disease: No - ENDOCRINE/METABOLIC Hx Endocrine Disorders: Yes Hx Diabetes Mellitus Type 2: Yes - HEMATOLOGICAL/ONCOLOGICAL Hx Anemia: Yes Hx Human Immunodeficiency Virus (HIV): No - INTEGUMENTARY Hx Dermatological Problems: No - MUSCULOSKELETAL/RHEUMATOLOGICAL Hx Fractures: Yes (b/l feet) - GASTROINTESTINAL Hx Gastrointestinal Disorders: No - GENITOURINARY/GYNECOLOGICAL Hx Genitourinary Disorders: No - PSYCHIATRIC Hx Anxiety: Yes Hx Depression: Yes - SURGICAL HISTORY Hx Cholecystectomy: Yes Hx Coronary Artery Bypass Graft: No Hx Coronary Stent: Yes (x3) - ANESTHESIA Hx Anesthesia: Yes Hx Anesthesia Reactions: No Hx Malignant Hyperthermia: No Meds Allergies/Adverse Reactions: Allergies Allergy/AdvReac Type Severity Reaction Status Date / Time ampicillin Allergy ANAPHYLAXIS Verified 07/10/17 16:05 codeine AdvReac HEADACHE Verified 07/10/17 16:05 - Medications Medications: Current Medications Aspirin (Ecotrin) 81 mg PO DAILY DAVID Atorvastatin Calcium (Lipitor) 20 mg PO DAILY DAVID Clopidogrel Bisulfate (Plavix) 75 mg PO DAILY DAVID Digoxin (Digoxin) 0.125 mg PO DAILY DAVID Glyburide (Micronase) 2.5 mg PO 0800,1700 [facility] Heparin Sodium (Porcine) (Heparin) 5,000 units SC Q12 [facility] PRN Reason: Protocol Last Admin: 09/17/17 23:04 Dose: 5,000 units Home Med (Ropinirole Hcl [Requip]) 0.5 mg PO Q8 [facility] Sodium Chloride (Sodium Chloride 0.9%) 1,000 mls @ 100 mls/hr IV .Q10H [facility] Last Admin: 09/17/17 23:04 Dose: 100 mls/hr Methylprednisolone 1 gm/ (Sodium Chloride) 250 mls @ 62.5 mls/hr IV DAILY [facility] Insulin Human Regular (Humulin R) 0 units SC ACCU-CHECK [facility] PRN Reason: Protocol Last Admin: 09/17/17 23:05 Dose: Not Given Metformin HCl (Glucophage) 500 mg PO 0800,1700 [facility] Metoprolol Succinate (Toprol Xl) 25 mg PO DAILY [facility] Sertraline HCl (Zoloft) 50 mg PO DAILY [facility] Tamsulosin HCl (Flomax) 0.4 mg PO DAILY [facility] Tiotropium [place] (Spiriva) 18 mcg INH DAILY [facility] Tramadol HCl (Ultram) 50 mg PO TID [facility] Physical Exam - Constitutional Appears: Well - Head Exam Head Exam: ATRAUMATIC, NORMAL INSPECTION, NORMOCEPHALIC - Eye Exam Eye Exam: EOMI, Normal appearance, PERRL - ENT Exam ENT Exam: Mucous Membranes Moist, Normal Exam - Neck Exam Neck exam: Positive for: Normal Inspection - Respiratory Exam Respiratory Exam: Rales, Wheezes, NORMAL BREATHING PATTERN - Cardiovascular Exam Cardiovascular Exam: REGULAR RHYTHM - GI/Abdominal Exam GI & Abdominal Exam: Normal Bowel Sounds, Soft. absent: Tenderness - Rectal Exam Rectal Exam: Deferred - Neurological Exam Neurological exam: Abnormal Gait, Alert, CN II-XII Intact, Oriented x3 Additional comments: Speech was normal. Reflexes are brisk throughout. Left arm strength is 2/5 proximally and distally. Sensation is intact throughout. Clonus noted in LLE. - Psychiatric Exam Psychiatric exam: Normal Affect, Normal Mood Results - Vital Signs Recent Vital Signs: Last Vital Signs Temp 98.0 F 09/17/17 21:25 Pulse 88 09/17/17 21:25 Resp 16 09/17/17 21:25 BP 132/68 09/17/17 21:25 Pulse Ox 98 09/17/17 21:25 - Labs Result Diagrams: 09/17/17 15:35 09/17/17 15:35 Labs: Laboratory Results - last 24 hr 09/17/17 09/17/17 09/17/17 15:35 15:35 15:35 WBC 8.3 RBC 4.29 L Hgb 13.4 Hct 40.0 MCV 93.3 MCH 31.3 H MCHC 33.6 RDW 15.1 H Plt Count 226 MPV 7.6 Neut % (Auto) 62.7 Lymph % (Auto) 25.8 [place] % (Auto) 7.4 Eos % (Auto) 3.8 Baso % (Auto) 0.3 Neut # (Auto) 5.2 Lymph # (Auto) 2.2 Stanley # (Auto) 0.6 Eos # (Auto) 0.3 Baso # (Auto) 0.0 PT INR APTT Sodium 143 Potassium 3.6 Chloride 103 Carbon Dioxide 27 Anion Gap 17 BUN 7 L Creatinine 1.0 Est GFR ( Amer) > 60 Est GFR (Non-Af Amer) > 60 Random Glucose 111 H Hemoglobin A1c 6.8 H Calcium 9.4 Total Bilirubin 0.4 AST 19 ALT 29 Alkaline Phosphatase 72 Troponin I 0.0320 Total Protein 7.1 Albumin 3.7 Globulin 3.3 Albumin/Globulin Ratio 1.1 Triglycerides 180 H D Cholesterol 139 LDL Cholesterol Direct 101 HDL Cholesterol 20 L Blood Type Antibody Screen BBK History Checked 09/17/17 09/17/17 15:35 15:35 WBC RBC Hgb Hct MCV MCH MCHC RDW Plt Count MPV Neut % (Auto) Lymph % (Auto) Stanley % (Auto) Eos % (Auto) Baso % (Auto) Neut # (Auto) Lymph # (Auto) Stanley # (Auto) Eos # (Auto) Baso # (Auto) PT 14.4 H INR 1.3 H APTT 34.5 Sodium Potassium Chloride Carbon Dioxide Anion Gap BUN Creatinine Est GFR ( Amer) Est GFR (Non-Af Amer) Random Glucose Hemoglobin A1c Calcium Total Bilirubin AST ALT Alkaline Phosphatase Troponin I Total Protein Albumin Globulin Albumin/Globulin Ratio Triglycerides Cholesterol LDL Cholesterol Direct HDL Cholesterol Blood Type A POSITIVE Antibody Screen Negative BBK History Checked Patient has bt Assessment & Plan (1) Multiple sclerosis Assessment and Plan: Likely an exacerbation, but with the patient's history of multiple stroke risk factors, it is highly possible that he had an acute to subacute ischemic stroke. I recommend the followin. Repeat CT head in 24 hours since the patient refuses MRI 2. Start Solumedrol 1000 mg daily for 3 days 3. Continue current home meds 4. Fluids with NS at 100 mL/hr 5. PT/OT eval and treatment 6. DVT Px 7. Case management consult Thank you. Status: Chronic Priority: High
[2017-09-18] MEDS: Sodium Chloride 0.9% 1,000 ML IV SCH ×2 (02:09→16:22)
[2017-09-18 06:04] LABS: HEMOGLOBIN 12.8 g/dL (12.0-18.0); MEAN CORPUSCULAR HEMOGLOBIN 31.1 pg (27.0-31.0); MEAN CORPUSCULAR HGB CONC 33.4 g/dL (33.0-37.0); RBC 4.11 Mil/uL (4.40-5.90); RED CELL DISTRIBUTION WIDTH 14.7 % (11.5-14.5); WHITE BLOOD COUNT 7.3 K/uL (4.8-10.8)
[2017-09-18 06:15] LABS: BLOOD UREA NITROGEN 13 mg/dl (9-20); CALCIUM 9.2 mg/dL (8.4-10.2); GFR AFRICAN-AMERICAN > 60; GFR NON-AFRICAN AMERICAN > 60
[2017-09-18] MEDS: Insulin Regular 100 units/ml SC SCH ×3 (08:57→16:19)
[2017-09-18] MEDS ORDERED: Metoprolol Succinate 25 mg XL Tab PO SCH (09:00)
[2017-09-18] MEDS ORDERED: Digoxin 125 mcg (0.125 mg) Tab PO SCH (09:00)
[2017-09-18] MEDS ORDERED: Tiotropium 18 mcg Cap For Inhalation INH SCH (09:00)
[2017-09-18] MEDS ORDERED: methylPREDNISolone 1 GM in Sodium Chloride 0.9% 250 ML IV SCH ×2 (09:00)
[2017-09-18] MEDS ORDERED: Patient's Own Med (Glyburide/Metformin Hcl [Glyburide-Metformin 2.5-500 Mg] 1 TAB) PO SCH (09:00)
[2017-09-18] MEDS ORDERED: MethylPREDNISolone 1 gm Vial ONE (09:10)
[2017-09-18 10:21] VITALS: PULSE 80
--- NOTE | 2017-09-18 10:52 | CP.PCM.PN ---
Subjective - Date & Time of Evaluation Date of Evaluation: 09/18/17 Time of Evaluation: 10:49 - Subjective Subjective: Mr. Blakely was seen and examined at the bedside. He is alert, oriented in all spheres. He denies any headache, dizziness, lightheadedness, nausea, vomiting, bluyrred vision or diplopia. He is able to follow simple commands with left upper extremity with minimal movement during the assessment.He was unable to raise it with the level of his chest or shoulder. However, when his breakfast tray came, all extremities move including the left upper extremity. He was able to move his urinal from the bedside table to the right right side of his bed. He was also able to reposition himself in an upright position. CT scan of the head did not show any acute intracranial abnormality.There was no untoward events overnight. Objective - Vital Signs/Intake and Output Vital Signs (last 24 hours): Temp Pulse Resp BP Pulse Ox 98.1 F 80 18 122/66 96 09/18/17 07:58 09/18/17 08:55 09/18/17 07:58 09/18/17 08:55 09/18/17 07:58 - Medications Medications: Current Medications Aspirin (Ecotrin) 81 mg PO DAILY [facility] Last Admin: 09/18/17 08:54 Dose: 81 mg Atorvastatin Calcium (Lipitor) 20 mg PO DAILY [facility] Last Admin: 09/18/17 08:57 Dose: 20 mg Clopidogrel Bisulfate (Plavix) 75 mg PO DAILY [facility] Last Admin: 09/18/17 08:54 Dose: 75 mg Digoxin (Digoxin) 0.125 mg PO DAILY [facility] Last Admin: 09/18/17 10:21 Dose: 0.125 mg Glyburide (Micronase) 2.5 mg PO 0800,1700 [facility] Last Admin: 09/18/17 08:54 Dose: 2.5 mg Heparin Sodium (Porcine) (Heparin) 5,000 units SC Q12 [facility] PRN Reason: Protocol Last Admin: 09/18/17 08:56 Dose: 5,000 units Home Med (Ropinirole Hcl [Requip]) 0.5 mg PO Q8 [facility] Sodium Chloride (Sodium Chloride 0.9%) 1,000 mls @ 100 mls/hr IV .Q10H [facility] Last Admin: 09/18/17 02:09 Dose: Not Given Methylprednisolone 1 gm/ (Sodium Chloride) 250 mls @ 62.5 mls/hr IV DAILY [facility] Last Admin: 09/18/17 10:20 Dose: 62.5 mls/hr Insulin Human Regular (Humulin R) 0 units SC ACCU-CHECK [facility] PRN Reason: Protocol Last Admin: 09/18/17 08:57 Dose: 3 units Metformin HCl (Glucophage) 500 mg PO 0800,1700 [facility] Last Admin: 09/18/17 08:54 Dose: 500 mg Metoprolol Succinate (Toprol Xl) 25 mg PO DAILY [facility] Last Admin: 09/18/17 08:55 Dose: 25 mg Sertraline HCl (Zoloft) 50 mg PO DAILY [facility] Last Admin: 09/18/17 08:56 Dose: 50 mg Tamsulosin HCl (Flomax) 0.4 mg PO DAILY [facility] Last Admin: 09/18/17 08:58 Dose: 0.4 mg Tiotropium [place] (Spiriva) 18 mcg INH DAILY [facility] Last Admin: 09/18/17 08:55 Dose: 18 mcg Tramadol HCl (Ultram) 50 mg PO Q4 PRN PRN Reason: Pain, moderate (4-7) Last Admin: 09/18/17 09:12 Dose: 50 mg - Labs Labs: 09/18/17 04:20 09/18/17 04:20 PT 14.4 Seconds (9.8-13.1) H 09/17/17 15:35 INR 1.3 (0.9-1.2) H 09/17/17 15:35 APTT 34.5 Seconds (25.6-37.1) 09/17/17 15:35 - Constitutional Appears: No Acute Distress - Head Exam Head Exam: NORMAL INSPECTION - Neurological Exam Neurological Exam: Alert, Awake, Oriented x3 Neuro motor strength exam: Left Upper Extremity: 3, Right Upper Extremity: 5, Left Lower Extremity: 5, Right Lower Extremity: 5 Additional comments: He is alert, oriented able to follow simple commands. Sensations remains intact. Assessment and Plan (1) Multiple sclerosis Assessment & Plan: Case discussed with Dr. Arellano, continue all current medical, physical, occupational therapies. Pending repeat CT scan of the head. Status: Chronic
--- NOTE | 2017-09-18 11:33 | CP.PCM.DIS ---
Provider - Provider Date of Admission: 09/17/17 17:47 Attending physician: Ha Ascencio DO Time Spent in preparation of Discharge (in minutes): 30 Diagnosis - Discharge Diagnosis (1) Musculoskeletal pain of extremity Status: Acute Hospital Course - Lab Results Lab Results: Most Recent Lab Values WBC 7.3 K/uL (4.8-10.8) 09/18/17 04:20 RBC 4.11 Mil/uL (4.40-5.90) L 09/18/17 04:20 Hgb 12.8 g/dL (12.0-18.0) 09/18/17 04:20 Hct 38.2 % (35.0-51.0) 09/18/17 04:20 MCV 93.0 fl (80.0-94.0) 09/18/17 04:20 MCH 31.1 pg (27.0-31.0) H 09/18/17 04:20 MCHC 33.4 g/dL (33.0-37.0) 09/18/17 04:20 RDW 14.7 % (11.5-14.5) H 09/18/17 04:20 Plt Count 223 K/uL (130-400) 09/18/17 04:20 MPV 7.6 fl (7.2-11.7) 09/17/17 15:35 Neut % (Auto) 62.7 % (50.0-75.0) 09/17/17 15:35 Lymph % (Auto) 25.8 % (20.0-40.0) 09/17/17 15:35 [place] % (Auto) 7.4 % (0.0-10.0) 09/17/17 15:35 Eos % (Auto) 3.8 % (0.0-4.0) 09/17/17 15:35 Baso % (Auto) 0.3 % (0.0-2.0) 09/17/17 15:35 Neut # (Auto) 5.2 K/uL (1.8-7.0) 09/17/17 15:35 Lymph # (Auto) 2.2 K/uL (1.0-4.3) 09/17/17 15:35 [place] # (Auto) 0.6 K/uL (0.0-0.8) 09/17/17 15:35 Eos # (Auto) 0.3 K/uL (0.0-0.7) 09/17/17 15:35 Baso # (Auto) 0.0 K/uL (0.0-0.2) 09/17/17 15:35 PT 14.4 Seconds (9.8-13.1) H 09/17/17 15:35 INR 1.3 (0.9-1.2) H 09/17/17 15:35 APTT 34.5 Seconds (25.6-37.1) 09/17/17 15:35 Sodium 141 mmol/l (132-148) 09/18/17 04:20 Potassium 3.9 MMOL/L (3.6-5.0) 09/18/17 04:20 Chloride 105 mmol/L (98-107) 09/18/17 04:20 Carbon Dioxide 20 mmol/L (22-30) L 09/18/17 04:20 Anion Gap 20 (10-20) 09/18/17 04:20 BUN 13 mg/dl (9-20) 09/18/17 04:20 Creatinine 0.9 mg/dl (0.8-1.5) 09/18/17 04:20 Est GFR ( Amer) > 60 09/18/17 04:20 Est GFR (Non-Af Amer) > 60 09/18/17 04:20 POC Glucose (mg/dL) 168 mg/dL (65-110) H 09/18/17 10:35 Random Glucose 245 mg/dL (75-110) H 09/18/17 04:20 Hemoglobin A1c 6.8 % (4.2-6.5) H 09/17/17 15:35 Calcium 9.2 mg/dL (8.4-10.2) 09/18/17 04:20 Total Bilirubin 0.4 mg/dl (0.2-1.3) 09/17/17 15:35 AST 19 U/L (17-59) 09/17/17 15:35 ALT 29 U/L (21-72) 09/17/17 15:35 Alkaline Phosphatase 72 U/L (38-126) 09/17/17 15:35 Troponin I 0.0320 ng/mL (0.00-0.120) 09/17/17 15:35 Total Protein 7.1 G/DL (6.3-8.2) 09/17/17 15:35 Albumin 3.7 g/dL (3.5-5.0) 09/17/17 15:35 Globulin 3.3 gm/dL (2.2-3.9) 09/17/17 15:35 Albumin/Globulin Ratio 1.1 (1.0-2.1) 09/17/17 15:35 Triglycerides 180 mg/DL (0-149) H D 09/17/17 15:35 Cholesterol 139 mg/dL (0-199) 09/17/17 15:35 LDL Cholesterol Direct 101 mg/dL (0-129) 09/17/17 15:35 HDL Cholesterol 20 MG/DL (30-70) L 09/17/17 15:35 Blood Type A POSITIVE 09/17/17 15:35 Antibody Screen Negative 09/17/17 15:35 BBK History Checked Patient has bt 09/17/17 15:35 - Hospital Course Hospital Course: 71 yo male with a pmh significant for CVA, CAD with 3 stents and history of MD, multiple sclerosis (currently not on steroids chronically), hypertension, Type 2 DM controlled with oral medications, who presented to the ED with the complaint of left arm weakness this morning upon waking up. He states that he is able to move his fingers and sensation is completely intact. He denies having problems with his arm in the past, although he admits to having leg weakness years ago due to his multiple sclerosis. Denies fecal or urinary incontinence. No recent illnesses. Currently not on any medications for multiple sclerosis. In the ED, there was concern for CVA. Stat CT head was done showing periventricular white matter changes but no evidence of CVA or bleed. laboratory workup is unremarkable other than borderline hypertriglyceridemia. Dr. Arellano was consulted for neurology and recommended MRI and MRA of the brain, Solu-medrol 1 gram IV, and tele/obs. Patient denies chest pain, shortness of breath, fevers, chills, nausea, vomiting, diarrhea, headache. All of the patient 's questions were answered at the bedside. Patient evaluated by neurology. On examination today, patient stated he was weak because of pain in his shoulder, had tenderness on palpation. Per neuro eval, patient stated he had weakness in LUE, however did not have any issues when his food tray came. Repeat head CT no acute infarct. Discussed with Neuro, patient stable to be discharged home with steroid taper. Patient to follow up with [facility] in one week. Discharge Exam - Head Exam Head Exam: ATRAUMATIC, NORMAL INSPECTION, NORMOCEPHALIC - Eye Exam Eye Exam: EOMI, Normal appearance, PERRL - ENT Exam ENT Exam: Mucous Membranes Moist, Normal Oropharynx - Neck Exam Neck exam: Full Rom, Normal Inspection - Respiratory Exam Respiratory Exam: Clear to PA & Lateral, NORMAL BREATHING PATTERN - Cardiovascular Exam Cardiovascular Exam: RRR, +S1, +S2 - GI/Abdominal Exam GI & Abdominal Exam: Normal Bowel Sounds, Soft, Unremarkable. absent: Organomegaly, Tenderness - Extremities Exam Extremities exam: normal capillary refill, pedal pulses present Additional comments: normal strength all 4 extremities, no focal neuro deficits. - Back Exam Back exam: absent: CVA tenderness (L), CVA tenderness (R) - Neurological Exam Neurological exam: Alert, Oriented x3 - Psychiatric Exam Psychiatric exam: Normal Affect, Normal Mood - Skin Skin Exam: Dry, Normal Color Discharge Plan - Discharge Medications Prescriptions: Aspirin [Ecotrin] 81 mg PO DAILY #100 tabec Atorvastatin [Lipitor] 20 mg PO DAILY #30 tab Clopidogrel [Plavix] 75 mg PO DAILY #30 tab Digoxin 0.125 mg PO DAILY #30 tab Glyburide/Metformin HCl [Glyburide-Metformin 2.5-500 mg] 1 tab PO BID #30 tablet Methylprednisolone [Medrol Dose Pack (21 tabs)] 4 mg PO ASDIR #21 mg Metoprolol Succinate [Toprol XL] 25 mg PO DAILY #30 tab Ropinirole HCl [Requip] 0.5 mg PO Q8 #90 tablet Sertraline [Zoloft] 50 mg PO DAILY #30 tab Tamsulosin [Flomax] 0.4 mg PO DAILY #30 cap Tiotropium [Spiriva] 18 mcg INH DAILY #100 cap traMADol [Ultram] 50 mg PO TID #20 tab - Follow Up Plan Condition: STABLE Disposition: HOME/ ROUTINE Additional Instructions: follow up [facility] in one week Referrals: [facility] [Provider Group]
--- NOTE | 2017-09-18 13:23 | CP.PCM.CON ---
History of Present Illness - History of Present Illness History of Present Illness: THE PATIENT IS A 71 YEAR OLD MALE WHO IS WELL KNOWN TO ME. HE HAS A HISTORY OF CAD WITH AN OLD AWMI WITH CORONARY STENTS AND A RECENT NSTEMI WHEN REFUSED ACUTE INTERVENTION AND HAS A LVEF OF ABOUT 10%. HE ALSO HAS A HISTORY OF HYPERTENSION, HYPERLIPIDEMIA, TYPE 2 DM, ON OLD STROKE WITH SOME LEFT SIDED RESIDUAL WEAKNESS AND A HISTORY OF MULTIPLE SCLEROSIS AND HE HAD NOT BEEN FOLLOWING WITH ANY NEUROLOGIST FOR YEARS. HE NOW STATES THAT SINCE YESTERDAY MORNING HIS LUE HAS BEEN WEEK AND HE HAS DECREASED SENSATION. HE WENT TO THE ER YESTERDAY AND WAS ADMITTED. HE WAS SEEN BY NEUROLOGY AND IT WAS BELIEVED THAT THIS IS A FLARE-UP OF MS AND HE WAS STARTED ON STEROIDS. HE DENIES CHEST PAIN, SOB, PALPITATIONS OR OTHER CARDIAC SYMPTOMS. Past Patient History - Infectious Disease Hx of Infectious Diseases: None - Tetanus Immunizations Tetanus Immunization: Unknown - Past Medical History & Family History Past Medical History?: Yes - Past Social History Smoking Status: Light Smoker < 10 Cigarettes Daily - CARDIAC Hx Cardiac Disorders: Yes Hx Cardia Arrhythmia: Yes Hx Congestive Heart Failure: Yes Hx Hypercholesterolemia: Yes Hx Hypertension: Yes - PULMONARY Hx Respiratory Disorders: Yes Hx Asthma: Yes Hx Bronchitis: No Hx Chronic Obstructive Pulmonary Disease (COPD): Yes Hx Emphysema: Yes Hx Pneumonia: Yes - NEUROLOGICAL Hx Neurological Disorder: Yes HX Cerebrovascular Accident: Yes Hx Multiple Sclerosis: Yes (???) Hx Transient Ischemic Attacks (TIA): Yes - HEENT Hx HEENT Problems: No - RENAL Hx Chronic Kidney Disease: No - ENDOCRINE/METABOLIC Hx Endocrine Disorders: Yes Hx Diabetes Mellitus Type 2: Yes - HEMATOLOGICAL/ONCOLOGICAL Hx Blood Disorders: Yes Hx Anemia: Yes Hx Blood Transfusions: No Hx Human Immunodeficiency Virus (HIV): No - INTEGUMENTARY Hx Dermatological Problems: No - MUSCULOSKELETAL/RHEUMATOLOGICAL Hx Musculoskeletal Disorders: Yes Hx Back Pain: Yes (chronic) Hx Falls: No Hx Fractures: Yes (b/l feet) - GASTROINTESTINAL Hx Gastrointestinal Disorders: No - GENITOURINARY/GYNECOLOGICAL Hx Genitourinary Disorders: No - PSYCHIATRIC Hx Psychophysiologic Disorder: Yes Hx Anxiety: Yes Hx Depression: Yes Hx Substance Use: No - SURGICAL HISTORY Hx Surgeries: Yes Hx Cholecystectomy: Yes Hx Coronary Artery Bypass Graft: No Hx Coronary Stent: Yes (x3) Other/Comment: leg surgery. carpal tunnel surgery - ANESTHESIA Hx Anesthesia: Yes Hx Anesthesia Reactions: No Hx Malignant Hyperthermia: No Meds Home Medications: Home Medication List Medication Instructions Recorded Confirmed Type Aspirin [Ecotrin] 81 mg PO DAILY #100 tabec 09/18/17 Rx Atorvastatin [Lipitor] 20 mg PO DAILY #30 tab 09/18/17 Rx Clopidogrel [Plavix] 75 mg PO DAILY #30 tab 09/18/17 Rx Digoxin 0.125 mg PO DAILY #30 tab 09/18/17 Rx Glyburide/Metformin HCl 1 tab PO BID #30 tablet 09/18/17 Rx [Glyburide-Metformin 2.5-500 mg] Methylprednisolone [Medrol Dose 4 mg PO ASDIR #21 mg 09/18/17 Rx Pack (21 tabs)] Metoprolol Succinate [Toprol XL] 25 mg PO DAILY #30 tab 09/18/17 Rx Ropinirole HCl [Requip] 0.5 mg PO Q8 #90 tablet 09/18/17 Rx Sertraline [Zoloft] 50 mg PO DAILY #30 tab 09/18/17 Rx Tamsulosin [Flomax] 0.4 mg PO DAILY #30 cap 09/18/17 Rx Tiotropium [Spiriva] 18 mcg INH DAILY #100 cap 09/18/17 Rx traMADol [Ultram] 50 mg PO TID #20 tab 09/18/17 Rx Allergies/Adverse Reactions: Allergies Allergy/AdvReac Type Severity Reaction Status Date / Time ampicillin Allergy ANAPHYLAXIS Verified 07/10/17 16:05 codeine AdvReac HEADACHE Verified 07/10/17 16:05 - Medications Medications: Current Medications Aspirin (Ecotrin) 81 mg PO DAILY [facility] Last Admin: 09/18/17 08:54 Dose: 81 mg Atorvastatin Calcium (Lipitor) 20 mg PO DAILY [facility] Last Admin: 09/18/17 08:57 Dose: 20 mg Clopidogrel Bisulfate (Plavix) 75 mg PO DAILY [facility] Last Admin: 09/18/17 08:54 Dose: 75 mg Digoxin (Digoxin) 0.125 mg PO DAILY [facility] Last Admin: 09/18/17 10:21 Dose: 0.125 mg Glyburide (Micronase) 2.5 mg PO 0800,1700 [facility] Last Admin: 09/18/17 08:54 Dose: 2.5 mg Heparin Sodium (Porcine) (Heparin) 5,000 units SC Q12 [facility] PRN Reason: Protocol Last Admin: 09/18/17 08:56 Dose: 5,000 units Home Med (Ropinirole Hcl [Requip]) 0.5 mg PO Q8 [facility] Sodium Chloride (Sodium Chloride 0.9%) 1,000 mls @ 100 mls/hr IV .Q10H [facility] Last Admin: 09/18/17 02:09 Dose: Not Given Methylprednisolone 1 gm/ (Sodium Chloride) 250 mls @ 62.5 mls/hr IV DAILY [facility] Last Admin: 09/18/17 10:20 Dose: 62.5 mls/hr Insulin Human Regular (Humulin R) 0 units SC ACCU-CHECK [facility] PRN Reason: Protocol Last Admin: 09/18/17 12:10 Dose: 2 units Metformin HCl (Glucophage) 500 mg PO 0800,1700 [facility] Last Admin: 09/18/17 08:54 Dose: 500 mg Metoprolol Succinate (Toprol Xl) 25 mg PO DAILY [facility] Last Admin: 09/18/17 08:55 Dose: 25 mg Sertraline HCl (Zoloft) 50 mg PO DAILY [facility] Last Admin: 09/18/17 08:56 Dose: 50 mg Tamsulosin HCl (Flomax) 0.4 mg PO DAILY [facility] Last Admin: 09/18/17 08:58 Dose: 0.4 mg Tiotropium [place] (Spiriva) 18 mcg INH DAILY [facility] Last Admin: 09/18/17 08:55 Dose: 18 mcg Tramadol HCl (Ultram) 50 mg PO Q4 PRN PRN Reason: Pain, moderate (4-7) Last Admin: 09/18/17 09:12 Dose: 50 mg Physical Exam - Respiratory Exam Respiratory Exam: Clear to Auscultation Bilateral - Cardiovascular Exam Cardiovascular Exam: REGULAR RHYTHM, +S1, +S2 - Extremities Exam Additional comments: NO EDEMA OF THE LE - Neurological Exam Additional comments: LUE WITH SIGNIFICANT WEAKNESS AND DECREASED SENSATION LLE MILD WEAKNESS - Additional Findings Additional findings: EKG NSR, LAD, INDETERMINATE BBB, T WAVE INVERSIONS IN LIMB LEADS I AND L(OLD FINDINGS) NEUROLOGY CONSULT REVIEWED HEAD CT REPORT REVIEWED Results - Vital Signs Recent Vital Signs: Last Vital Signs Temp 98.7 F 09/18/17 12:00 Pulse 79 09/18/17 12:00 Resp 18 09/18/17 12:00 BP 123/65 09/18/17 12:00 Pulse Ox 95 09/18/17 12:00 - Labs Result Diagrams: 09/18/17 04:20 09/18/17 04:20 Labs: Laboratory Results - last 24 hr 09/17/17 09/17/17 09/17/17 15:35 15:35 15:35 WBC 8.3 RBC 4.29 L Hgb 13.4 Hct 40.0 MCV 93.3 MCH 31.3 H MCHC 33.6 RDW 15.1 H Plt Count 226 MPV 7.6 Neut % (Auto) 62.7 Lymph % (Auto) 25.8 [place] % (Auto) 7.4 Eos % (Auto) 3.8 Baso % (Auto) 0.3 Neut # (Auto) 5.2 Lymph # (Auto) 2.2 [place] # (Auto) 0.6 Eos # (Auto) 0.3 Baso # (Auto) 0.0 PT INR APTT Sodium 143 Potassium 3.6 Chloride 103 Carbon Dioxide 27 Anion Gap 17 BUN 7 L Creatinine 1.0 Est GFR ( Amer) > 60 Est GFR (Non-Af Amer) > 60 POC Glucose (mg/dL) Random Glucose 111 H Hemoglobin A1c 6.8 H Calcium 9.4 Total Bilirubin 0.4 AST 19 ALT 29 Alkaline Phosphatase 72 Troponin I 0.0320 Total Protein 7.1 Albumin 3.7 Globulin 3.3 Albumin/Globulin Ratio 1.1 Triglycerides 180 H D Cholesterol 139 LDL Cholesterol Direct 101 HDL Cholesterol 20 L Blood Type Antibody Screen BBK History Checked 09/17/17 09/17/17 09/17/17 15:35 15:35 22:12 WBC RBC Hgb Hct MCV MCH MCHC RDW Plt Count MPV Neut % (Auto) Lymph % (Auto) [place] % (Auto) Eos % (Auto) Baso % (Auto) Neut # (Auto) Lymph # (Auto) [place] # (Auto) Eos # (Auto) Baso # (Auto) PT 14.4 H INR 1.3 H APTT 34.5 Sodium Potassium Chloride Carbon Dioxide Anion Gap BUN Creatinine Est GFR ( Amer) Est GFR (Non-Af Amer) POC Glucose (mg/dL) 283 H Random Glucose Hemoglobin A1c Calcium Total Bilirubin AST ALT Alkaline Phosphatase Troponin I Total Protein Albumin Globulin Albumin/Globulin Ratio Triglycerides Cholesterol LDL Cholesterol Direct HDL Cholesterol Blood Type A POSITIVE Antibody Screen Negative BBK History Checked Patient has bt 09/18/17 09/18/1718 04:20 04:20 05:08 WBC 7.3 RBC 4.11 L Hgb 12.8 Hct 38.2 MCV 93.0 MCH 31.1 H MCHC 33.4 RDW 14.7 H Plt Count 223 MPV Neut % (Auto) Lymph % (Auto) [place] % (Auto) Eos % (Auto) Baso % (Auto) Neut # (Auto) Lymph # (Auto) [place] # (Auto) Eos # (Auto) Baso # (Auto) PT INR APTT Sodium 141 Potassium 3.9 Chloride 105 Carbon Dioxide 20 L Anion Gap 20 BUN 13 Creatinine 0.9 Est GFR ( Amer) > 60 Est GFR (Non-Af Amer) > 60 POC Glucose (mg/dL) 241 H Random Glucose 245 H Hemoglobin A1c Calcium 9.2 Total Bilirubin AST ALT Alkaline Phosphatase Troponin I Total Protein Albumin Globulin Albumin/Globulin Ratio Triglycerides Cholesterol LDL Cholesterol Direct HDL Cholesterol Blood Type Antibody Screen BBK History Checked 09/18/17 10:35 WBC RBC Hgb Hct MCV MCH MCHC RDW Plt Count MPV Neut % (Auto) Lymph % (Auto) [place] % (Auto) Eos % (Auto) Baso % (Auto) Neut # (Auto) Lymph # (Auto) [place] # (Auto) Eos # (Auto) Baso # (Auto) PT INR APTT Sodium Potassium Chloride Carbon Dioxide Anion Gap BUN Creatinine Est GFR ( Amer) Est GFR (Non-Af Amer) POC Glucose (mg/dL) 168 H Random Glucose Hemoglobin A1c Calcium Total Bilirubin AST ALT Alkaline Phosphatase Troponin I Total Protein Albumin Globulin Albumin/Globulin Ratio Triglycerides Cholesterol LDL Cholesterol Direct HDL Cholesterol Blood Type Antibody Screen BBK History Checked Assessment & Plan - Assessment and Plan (Free Text) Plan: CONTINUE STEROIDS, DIGOXIN, METOPROLOL, ASPIRIN, CLOPIDOGREL, ATORVASTATIN REPEAT HEAD CT PENDING ECHOCARDIOGRAM
[2017-09-18] MEDS ORDERED: Perflutren Lipid Microsphere 1.5 ML SUS IV ONE (14:28)
--- NOTE | 2017-09-18 14:32 | CT ---
PROCEDURE: CT HEAD WITHOUT CONTRAST. HISTORY: LUE weak, r/o CVA COMPARISON: 09/17/2017 TECHNIQUE: Axial computed tomography images were obtained through the head/brain without intravenous contrast. Radiation dose: Total exam DLP = 1128.34 mGy-cm. This CT exam was performed using one or more of the following dose reduction techniques: Automated exposure control, adjustment of the mA and/or kV according to patient size, and/or use of iterative reconstruction technique. FINDINGS: HEMORRHAGE: No intracranial hemorrhage. BRAIN: No mass effect or edema. There is mild diffuse age-appropriate atrophy. There is moderate periventricular white matter lucency with patchy and confluent deep white matter lucency consistent with chronic microvascular ischemic change. There is no evidence of acute infarct. There is an old right pontine lacunar infarct. VENTRICLES: Unremarkable. No hydrocephalus. CALVARIUM: Unremarkable. PARANASAL SINUSES: Unremarkable as visualized. No significant inflammatory changes. MASTOID AIR CELLS: Unremarkable as visualized. No inflammatory changes. OTHER FINDINGS: None. IMPRESSION: No evidence of acute infarct. No intracranial mass or hemorrhage. Age appropriate involutional changes. 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
--- NOTE | 2017-09-18 18:23 | CARD ---
APPROVED REPORT EXAM: Two-dimensional echocardiogram with contrast. Other Information Quality : GoodRhythm : NSR INDICATION LUE Weakness Echo Enhancing Agent Indication: Rule out thrombus Agent/Amount Used: Definity 2D DIMENSIONS IVSd1.04 (0.7-1.1cm)LVDd4.51 (3.9-5.9cm) PWd1.31 (0.7-1.1cm)IVSs1.00 (0.8-1.2cm) LVDs4.58 (2.5-4.0cm)FS (%) 1.6 % PWs1.40 (0.8-1.2cm) Mitral Valve MV E Yssphsgx21.4cm/sMV DECEL [id number] A Jxzrvkum010.0cm/s MV VKD47gpY/A ratio0.6MVA (PHT)2.86cm2 TDI Lateral E' Peak V7.99cm/sMedial E' Peak V6.84cm/sE/Lateral E'7.3 E/Medial E'8.5 LEFT VENTRICLE The left ventricle is normal size. There is mild concentric left ventricular hypertrophy. Left ventricle systolic function is severely impaired. The Ejection Fraction is 30-35%. 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 RIGHT VENTRICLE The right ventricle is normal size. There is normal right ventricular wall thickness. The right ventricular systolic function is normal. ATRIA The left atrium size is normal. The right atrium size is normal. AORTIC VALVE The aortic valve is not well visualized. No aortic regurgitation is present. There is no aortic valvular stenosis. MITRAL VALVE The mitral valve is normal in structure. There is no mitral valve stenosis. There is no mitral valve regurgitation noted. TRICUSPID VALVE The tricuspid valve is normal in structure. There is no tricuspid valve regurgitation noted. PULMONIC VALVE The pulmonary valve is normal in structure. There is no pulmonic valvular regurgitation. GREAT VESSELS The aortic root is normal in size. The IVC is normal in size and collapses >50% with inspiration. PERICARDIAL EFFUSION The pericardium appears normal. <Conclusion> The left ventricle is normal size. There is mild concentric left ventricular hypertrophy. Left ventricle systolic function is severely impaired. The Ejection Fraction is 30-35%. 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
--- NOTE | 2017-09-18 19:46 | CARD ---
APPROVED REPORT EKG Measurement Heart [id number] MN [id number] <Conclusion> Normal sinus rhythm Left axis deviation Nonspecific intraventricular block T wave abnormality, consider lateral ischemia Abnormal ECG
[2017-09-19 11:13] VITALS: BP 121/65; PULSE 78; RESP 20; TEMP 97.8; O2SAT 96
== END 2017-09-18 19:40 | disposition home health service (06) ==
LOC: H.ER 14:33 → H.ERHOLD 17:47 → H.TEL 22:19
PROVIDERS: ADMIT Internal Medicine; ATTEND Internal Medicine
DX: M79.622 Pain in left upper arm (principal); G35 Multiple sclerosis; E11.9 Type 2 diabetes mellitus without complications; I25.10 Atherosclerotic heart disease of native coronary artery without angina pectoris; I11.0 Hypertensive heart disease with heart failure; I50.9 Heart failure, unspecified; J43.9 Emphysema, unspecified; E78.5 Hyperlipidemia, unspecified; E78.1 Pure hyperglyceridemia; E78.00 Pure hypercholesterolemia, unspecified; I25.2 Old myocardial infarction; D64.9 Anemia, unspecified; F41.9 Anxiety disorder, unspecified; Z53.20 Procedure and treatment not carried out because of patient's decision for unspecified reasons; F17.210 Nicotine dependence, cigarettes, uncomplicated; Z86.73 Personal history of transient ischemic attack (TIA), and cerebral infarction without residual deficits; Z87.01 Personal history of pneumonia (recurrent); Z95.5 Presence of coronary angioplasty implant and graft; Z79.02 Long term (current) use of antithrombotics/antiplatelets; Z79.82 Long term (current) use of aspirin; Z88.6 Allergy status to analgesic agent; Z88.0 Allergy status to penicillin
CPT/HCPCS: 36415; 70450; 71045; 80048; 80053; 80061; 82948; 83036; 84484; 85025; 85027; 85610; 85730; 86850; 86900; 93005; 93306; 97161; 99285; G0378; G8978; G8979; J1644; J2930; J7040

== ENCOUNTER 2017-10-15 05:51 | Observation (INO) | payer MEDICARE ==
[2017-10-15 05:51] VITALS: BMI 18.5
--- NOTE | 2017-10-15 06:26 | ED PDOC ---
HPI: Chest Pain Time Seen by Provider: 10/15/17 05:59 Chief Complaint (Nursing): Chest Pain Chief Complaint (Provider): Chest Pain History Per: Patient History/Exam Limitations: no limitations Onset/Duration Of Symptoms: Hrs (x6) Current Symptoms Are (Timing): Still Present Additional Complaint(s): 72 year old male presents to ED with complaints of chest pain x6 hours and has a past medical history of multiple sclerosis, HTN, diabetes mellitus, COPD, BPH , NSTEMI, and cerebrovascular accident. Patient notes he finished a course of steroids as well as Tramadol 3 days ago. PCP: Maximo House - Risk Factors TAD Risk Factors: Pos: Hypertension Past Medical History Reviewed: Historical Data, Nursing Documentation, Vital Signs Vital Signs: Last Vital Signs Temp 97.9 F 10/16/17 11:57 Pulse 69 10/16/17 11:57 Resp 18 10/16/17 11:57 BP 114/61 10/16/17 11:57 Pulse Ox 97 10/16/17 11:57 - Medical History PMH: Anemia, Anxiety, Asthma, CAD, Cardia Arrhythmia, CHF, COPD, CVA, Depression , Diabetes, Emphysema, Fractures (b/l feet), HTN, Hypercholesterolemia, Hyperlipidemia, Multiple Sclerosis (???), Pneumonia, TIA Denies: Bronchitis, HIV, Chronic Kidney Disease - Surgical History Surgical History: Cholecystectomy, Coronary Stent (x3) Denies: CABG - Family History Family History: States: Unknown Family Hx, Diabetes - Social History Current smoker - smoking cessation education provided: Yes Ex-Smoker (has not smoked in the last 12 months): No Alcohol: None Drugs: Denies - Home Medications Home Medications: Ambulatory Orders Medication Instructions Recorded Aspirin [Ecotrin] 81 mg PO DAILY #100 tabec 09/18/17 Atorvastatin [Lipitor] 20 mg PO DAILY #30 tab 09/18/17 Clopidogrel [Plavix] 75 mg PO DAILY #30 tab 09/18/17 Digoxin 0.125 mg PO DAILY #30 tab 09/18/17 Metoprolol Succinate [Toprol XL] 25 mg PO DAILY #30 tab 09/18/17 Ropinirole HCl [Requip] 0.5 mg PO Q8 #90 tablet 09/18/17 Sertraline [Zoloft] 50 mg PO DAILY #30 tab 09/18/17 Tamsulosin [Flomax] 0.4 mg PO DAILY #30 cap 09/18/17 Tiotropium [Spiriva] 18 mcg INH DAILY #100 cap 09/18/17 traMADol [Ultram] 50 mg PO TID PRN #15 tab 10/16/17 - Allergies Allergies/Adverse Reactions: Allergies Allergy/AdvReac Type Severity Reaction Status Date / Time ampicillin Allergy ANAPHYLAXIS Verified 07/10/17 16:05 codeine AdvReac HEADACHE Verified 07/10/17 16:05 CARMEN Risk Score for UA/NSTEMI - CARMEN Risk Score Age > 64: YES CARMEN Score: 1 Risk %: 5% Curb-65 Severity Score - CURB-65 Severity Score Confusion: No Respiratory Rate greater than/equal to 30: No Systolic BP <90 or Diastolic BP less than/equal 60mmHg: No Age >64: Yes Curb-65 Score: 1 Percentage 30-day mortality: 2.7% Wells Criteria for PE - Wells Criteria for Pulmonary Embolism Heart Rate >100: Yes Immobilization at least 3 days;Surgery previous 4 weeks: No Previous, objectively diagnosed PE or DVT: No Hemoptysis: No Malignancy w/treatment within 6 months, or palliative: No Total Score: 1.5 Review of Systems ROS Statement: Except As Marked, All Systems Reviewed And Found Negative Cardiovascular: Positive for: Chest Pain Physical Exam - Reviewed Nursing Documentation Reviewed: Yes Vital Signs Reviewed: Yes - Physical Exam Appears: Positive for: Non-toxic, No Acute Distress Head Exam: Positive for: ATRAUMATIC, NORMOCEPHALIC Skin: Positive for: Normal Color, Warm, Dry Eye Exam: Positive for: EOMI, Normal appearance, PERRL Neck: Positive for: Normal, Painless ROM Cardiovascular/Chest: Positive for: Regular Rate, Rhythm. Negative for: Murmur Respiratory: Positive for: Normal Breath Sounds. Negative for: Respiratory Distress Gastrointestinal/Abdominal: Positive for: Normal Exam, Soft. Negative for: Tenderness Back: Positive for: Normal Inspection Extremity: Positive for: Normal ROM. Negative for: Deformity Neurologic/Psych: Positive for: Alert, Oriented. Negative for: Motor/Sensory Deficits - Laboratory Results Result Diagrams: 10/15/17 06:29 10/15/17 06:29 - ECG O2 Sat by Pulse Oximetry: 100 (RA) Pulse Ox Interpretation: Normal Medical Decision Making Medical Decision Makin Initial impression: chest pain Initial plan: * Labs * CXR * Trop I 0700 Patient will be signed out to Dr. Coats pending ED work up. ~ Scribe Attestation: Documented by Araceli Dorsey, acting as a scribe for Susie Clemons MD. Provider Scribe Attestation: All medical record entries made by the Scribe were at my direction and personally dictated by me. I have reviewed the chart and agree that the record accurately reflects my personal performance of the history, physical exam, medical decision making, and the department course for this patient. I have also personally directed, reviewed, and agree with the discharge instructions and disposition. Disposition - Clinical Impression Clinical Impression: Chest pain - Patient ED Disposition Is Patient to be Admitted: Transfer of Care - Disposition Disposition: Transfer of Care Disposition Time: 07:00 Condition: FAIR Patient Signed Over To: Pete Coats Handoff Comments: pending ED work up.
[2017-10-15 06:56] LABS: ALB/GLOB RATIO 1.2 (1.0-2.1); ALBUMIN 3.8 g/dL (3.5-5.0); ALT/SGPT 29 U/L (21-72); AST/SGOT 18 U/L (17-59); BLOOD UREA NITROGEN 10 mg/dl (9-20); CALCIUM 9.5 mg/dL (8.4-10.2); GFR AFRICAN-AMERICAN > 60; GFR NON-AFRICAN AMERICAN > 60
[2017-10-15 06:59] LABS: BASO # 0.1 K/uL (0.0-0.2); EOS # 0.3 K/uL (0.0-0.7); EOS % 3.3 % (0.0-4.0); HEMOGLOBIN 13.5 g/dL (12.0-18.0); LYMPH % 22.1 % (20.0-40.0); MEAN CELL VOLUME 94.7 fl (80.0-94.0); MEAN CORPUSCULAR HEMOGLOBIN 31.9 pg (27.0-31.0); MEAN CORPUSCULAR HGB CONC 33.7 g/dL (33.0-37.0); MEAN PLATELET VOLUME 7.7 fl (7.2-11.7); MONO # 0.7 K/uL (0.0-0.8); MONO % 8.1 % (0.0-10.0); NEUT % 65.5 % (50.0-75.0); NRBC % 0.1 % (0.0-0.0); RBC 4.22 Mil/uL (4.40-5.90); RED CELL DISTRIBUTION WIDTH 15.5 % (11.5-14.5); WHITE BLOOD COUNT 9.1 K/uL (4.8-10.8)
--- NOTE | 2017-10-15 07:11 | ED PDOC ---
- Laboratory Results Result Diagrams: 10/15/17 06:29 10/15/17 06:29 - ECG O2 Sat by Pulse Oximetry: 100 (RA) Disposition - Clinical Impression Clinical Impression: Chest pain - POA Present On Arrival: None - Disposition Disposition: Hospitalized as Observation Patient Disposition Time: 07:11 Condition: FAIR Forms: [facility] (Romanian)
--- NOTE | 2017-10-15 08:34 | CP.PCM.HP ---
History of Present Illness - History of Present Illness History of Present Illness: 72 year old male well known to our service, PMH AWMI with stenting, recent NSTEMI refused cath, HTN, HLD, multiple sclerosis? presents with a several hour of chest pain moderate to severe, sharp, waking him fro sleep, nonradiating, associated with mild dyspnea. Patient states he also ran out of Tramadol. Initial troponin negative. No acute changes on EKG. Will place on TELEOBS and rule out. HD stable, NAD. ROS: per HPI all other systems reviewde and negative Present on Admission - Present on Admission Any Indicators Present on Admission: No Past Patient History - Infectious Disease Hx of Infectious Diseases: None - Tetanus Immunizations Tetanus Immunization: Unknown - Past Medical History & Family History Past Medical History?: Yes - Past Social History Alcohol: None Drugs: Denies - CARDIAC Hx Cardiac Disorders: Yes (HTN) - PULMONARY Hx Respiratory Disorders: Yes (COPD, EMPHYSEMA) - NEUROLOGICAL Hx Multiple Sclerosis: Yes (???) Hx Transient Ischemic Attacks (TIA): Yes - HEENT Hx HEENT Problems: No - RENAL Hx Chronic Kidney Disease: No - ENDOCRINE/METABOLIC Hx Endocrine Disorders: Yes Hx Diabetes Mellitus Type 2: Yes - HEMATOLOGICAL/ONCOLOGICAL Hx Blood Disorders: Yes (DM) - INTEGUMENTARY Hx Dermatological Problems: No - MUSCULOSKELETAL/RHEUMATOLOGICAL Hx Fractures: Yes (b/l feet) - GASTROINTESTINAL Hx Gastrointestinal Disorders: No - GENITOURINARY/GYNECOLOGICAL Hx Genitourinary Disorders: No - PSYCHIATRIC Hx Anxiety: Yes Hx Depression: Yes - SURGICAL HISTORY Hx Cholecystectomy: Yes Hx Coronary Artery Bypass Graft: No Hx Coronary Stent: Yes (x3) - ANESTHESIA Hx Anesthesia: Yes Hx Anesthesia Reactions: No Hx Malignant Hyperthermia: No Meds Allergies/Adverse Reactions: Allergies Allergy/AdvReac Type Severity Reaction Status Date / Time ampicillin Allergy ANAPHYLAXIS Verified 07/10/17 16:05 codeine AdvReac HEADACHE Verified 07/10/17 16:05 Physical Exam - Constitutional Additional comments: General: awake, alert HEENT: NCAT, PERRL, EOMI HEART: RRR, S1, S2 no MRG LUNG: CTAB, no WRR ABD: soft, NT, ND, no mass, no HSM EXT: warm, well perfused NEURO: awake, alert SKIN: warm, dry PSYCH: normal mood, normal affect Results - Vital Signs Recent Vital Signs: Last Vital Signs Temp 98 F 10/15/17 08:25 Pulse 80 10/15/17 08:25 Resp 18 10/15/17 08:25 BP 134/81 10/15/17 08:25 Pulse Ox 98 10/15/17 08:25 - Labs Result Diagrams: 10/15/17 06:29 10/15/17 06:29 Labs: Laboratory Results - last 24 hr 10/15/17 10/15/17 06:29 06:29 WBC 9.1 RBC 4.22 L Hgb 13.5 Hct 40.0 MCV 94.7 H MCH 31.9 H MCHC 33.7 RDW 15.5 H Plt Count 208 MPV 7.7 Neut % (Auto) 65.5 Lymph % (Auto) 22.1 [place] % (Auto) 8.1 Eos % (Auto) 3.3 Baso % (Auto) 1.0 Neut # (Auto) 6.0 Lymph # (Auto) 2.0 [place] # (Auto) 0.7 Eos # (Auto) 0.3 Baso # (Auto) 0.1 Sodium 141 Potassium 4.0 Chloride 105 Carbon Dioxide 24 Anion Gap 16 BUN 10 Creatinine 0.7 L Est GFR ( Amer) > 60 Est GFR (Non-Af Amer) > 60 Random Glucose 127 H Calcium 9.5 Total Bilirubin 0.6 AST 18 ALT 29 Alkaline Phosphatase 59 Troponin I 0.0440 Total Protein 6.9 Albumin 3.8 Globulin 3.1 Albumin/Globulin Ratio 1.2 Assessment & Plan - Assessment and Plan (Free Text) Plan: 72 year old male well known to our service, PMH AWMI with stenting, recent NSTEMI refused cath, HTN, HLD, multiple sclerosis? presents with a several hour of chest pain moderate to severe, sharp, waking him fro sleep, nonradiating, associated with mild dyspnea. Patient states he also ran out of Tramadol. Initial troponin negative. No acute changes on EKG. Will place on TELEOBS and rule out. HD stable, NAD. Chest Pain HX CAD HTN HLD Continue ASA, plavix, Lipitor, Toprol neg x2 Trend troponins Cardiology Consult: Dr. House EKG: no acute changes Afib Cont Digoxin DM accuchecks cont glyburide, ISS Depression continue Zoloft Chronic Pain continue Ultram
--- NOTE | 2017-10-15 08:40 | RAD ---
HISTORY: chest pain COMPARISON: 09/17/2017. FINDINGS: LUNGS: The lungs are well inflated and clear. PLEURA: No significant pleural effusion identified, no pneumothorax apparent. CARDIOVASCULAR: Normal. OSSEOUS STRUCTURES: No significant abnormalities. VISUALIZED UPPER ABDOMEN: Normal. OTHER FINDINGS: Surgical clips in the right upper quadrant are related to prior cholecystectomy. IMPRESSION: No active pulmonary disease.
--- NOTE | 2017-10-15 09:33 | CP.PCM.CON ---
History of Present Illness - History of Present Illness History of Present Illness: THE PATIENT IS A 72 YEAR OLD MALE WHO WAS ADMITTED TO OBSERVATION FOR CHEST PAIN AND I WAS ASKED TO SEE HIM. HE HAS A HISTORY OF CAD WITH AN OLD AWMI WITH A CODE HEART CALLED IN THE ER AND HE WAS TRANSFERRED TO [facility] AND UNDERWENT AN URGENT CARDIAC CATH AND HAD CORONARY STENTING. HE WAS MORE RECENTLY ADMITTED TO [facility] FOR A NSTEMI AND REFUSED AN URGENT CARDIAC CATH DESPITE AGGRESSIVE URGING AND HAD MEDICAL TREATING. HE ALSO HAS HYPERTENSION, HYPERLIPIDEMIA, TYPE 2 DM, COPD, AN OLD CVA AND MULTIPLE SCLEROSIS. HE TAKES TORADOL FOR MULTIPLE PAINS AND RAN OUT OF IT. HE NOW CLAIMS THAT HE HAD CHEST PAIN FROM ABOUT MIDNIGHT UNTIL ABOUT 5:30 AM SO HE CAME TO THE ER AND RECEIVED TORADOL AND THE PAIN IS NOW ESSENTIALLY GONE. Past Patient History - Infectious Disease Hx of Infectious Diseases: None - Tetanus Immunizations Tetanus Immunization: Unknown - Past Medical History & Family History Past Medical History?: Yes - Past Social History Smoking Status: Current Some Days Smoker - CARDIAC Hx Cardiac Disorders: Yes (HTN) Hx Cardia Arrhythmia: Yes Hx Hypertension: Yes - PULMONARY Hx Respiratory Disorders: Yes (COPD, EMPHYSEMA) Hx Asthma: Yes Hx Emphysema: Yes - NEUROLOGICAL Hx Neurological Disorder: Yes Hx Multiple Sclerosis: Yes Hx Transient Ischemic Attacks (TIA): Yes - HEENT Hx HEENT Problems: No - RENAL Hx Chronic Kidney Disease: No - ENDOCRINE/METABOLIC Hx Endocrine Disorders: Yes Hx Diabetes Mellitus Type 2: Yes - HEMATOLOGICAL/ONCOLOGICAL Hx Blood Disorders: No Hx AIDS: No Hx Human Immunodeficiency Virus (HIV): No - INTEGUMENTARY Hx Dermatological Problems: No - MUSCULOSKELETAL/RHEUMATOLOGICAL Hx Musculoskeletal Disorders: Yes Hx Falls: Yes Hx Fractures: Yes (bilateral feet) - GASTROINTESTINAL Hx Gastrointestinal Disorders: No - GENITOURINARY/GYNECOLOGICAL Hx Genitourinary Disorders: No - PSYCHIATRIC Hx Psychophysiologic Disorder: Yes Hx Anxiety: Yes Hx Depression: Yes Hx Substance Use: No - SURGICAL HISTORY Hx Surgeries: Yes Hx Cataract Extraction: Yes (x2) Hx Cholecystectomy: Yes Hx Coronary Artery Bypass Graft: No Hx Coronary Stent: Yes (x3) - ANESTHESIA Hx Anesthesia: Yes Hx Anesthesia Reactions: No Hx Malignant Hyperthermia: No Has any member of the family had a problem w/ anesthesia?: No Meds Allergies/Adverse Reactions: Allergies Allergy/AdvReac Type Severity Reaction Status Date / Time ampicillin Allergy ANAPHYLAXIS Verified 07/10/17 16:05 codeine AdvReac HEADACHE Verified 07/10/17 16:05 - Medications Medications: Current Medications Aspirin (Ecotrin) 81 mg PO DAILY [facility] Atorvastatin Calcium (Lipitor) 20 mg PO HS [facility] Clopidogrel Bisulfate (Plavix) 75 mg PO DAILY [facility] Digoxin (Digoxin) 0.125 mg PO DAILY [facility] Enoxaparin Sodium (Lovenox) 40 mg SC DAILY [facility] PRN Reason: Protocol Glyburide (Micronase) 2.5 mg PO BID [facility] Insulin Human Lispro (Humalog) 0 units SC ACHS [facility] PRN Reason: Protocol Metformin HCl (Glucophage) 500 mg PO BID [facility] Metoprolol Succinate (Toprol Xl) 25 mg PO DAILY [facility] Tramadol HCl (Ultram) 50 mg PO Q8 [facility] Physical Exam - Respiratory Exam Respiratory Exam: Clear to Auscultation Bilateral - Cardiovascular Exam Cardiovascular Exam: REGULAR RHYTHM, +S1, +S2 - Extremities Exam Additional comments: NO LE EDEMA KEATON'S SIGN NEGATIVE BILAT - Additional Findings Additional findings: EKG SINUS RHYTHM, NO ACUTE CHANGES TROPONIN IS NORMAL Results - Vital Signs Recent Vital Signs: Last Vital Signs Temp 98 F 10/15/17 08:25 Pulse 80 10/15/17 08:38 Resp 18 10/15/17 08:38 BP 134/81 10/15/17 08:25 Pulse Ox 98 10/15/17 08:38 - Labs Result Diagrams: 10/15/17 06:29 10/15/17 06:29 Labs: Laboratory Results - last 24 hr 10/15/17 10/15/17 06:29 06:29 WBC 9.1 RBC 4.22 L Hgb 13.5 Hct 40.0 MCV 94.7 H MCH 31.9 H MCHC 33.7 RDW 15.5 H Plt Count 208 MPV 7.7 Neut % (Auto) 65.5 Lymph % (Auto) 22.1 [place] % (Auto) 8.1 Eos % (Auto) 3.3 Baso % (Auto) 1.0 Neut # (Auto) 6.0 Lymph # (Auto) 2.0 [place] # (Auto) 0.7 Eos # (Auto) 0.3 Baso # (Auto) 0.1 Sodium 141 Potassium 4.0 Chloride 105 Carbon Dioxide 24 Anion Gap 16 BUN 10 Creatinine 0.7 L Est GFR ( Amer) > 60 Est GFR (Non-Af Amer) > 60 Random Glucose 127 H Calcium 9.5 Total Bilirubin 0.6 AST 18 ALT 29 Alkaline Phosphatase 59 Troponin I 0.0440 Total Protein 6.9 Albumin 3.8 Globulin 3.1 Albumin/Globulin Ratio 1.2 Assessment & Plan - Assessment and Plan (Free Text) Assessment: CAD HISTORY CHEST PAIN PRESENT DOES NOT APPEAR TO BE CARDIAC HYPERTENSION HYPERLIPIDEMIA COPD OLD CVA MS Plan: THE PATIENT IS ADMITTED TO ON TELEMETRY FOR CHEST PAIN OBSERVATION O2, METOPROLOL, ATORVASTATIN, DIGOXIN, ASPIRIN, CLOPIDOGREL, LOVENOX, METFORMEN , GLYBURIDE SERIAL EKGS AND TROPONINS
[2017-10-15] MEDS: Enoxaparin 40 mg Syringe SC SCH (10:52)
[2017-10-15] MEDS: Digoxin 125 mcg (0.125 mg) Tab PO SCH (10:53)
[2017-10-15] MEDS: Metoprolol Succinate 25 mg XL Tab PO SCH (10:53)
[2017-10-15] MEDS: Insulin Lispro (humaLOG) 100 Units/ml Inj SC SCH ×2 (11:28→17:06)
[2017-10-16] MEDS: Insulin Lispro (humaLOG) 100 Units/ml Inj SC SCH ×3 (05:05→12:09)
[2017-10-16 07:48] VITALS: RESP 18
[2017-10-16] MEDS: Digoxin 125 mcg (0.125 mg) Tab PO SCH (09:15)
[2017-10-16] MEDS: Enoxaparin 40 mg Syringe SC SCH (09:15)
[2017-10-16] MEDS: Metoprolol Succinate 25 mg XL Tab PO SCH (09:17)
--- NOTE | 2017-10-16 09:22 | CP.PCM.PN ---
Subjective - Date & Time of Evaluation Date of Evaluation: 10/16/17 Time of Evaluation: 07:30 - Subjective Subjective: NO CHEST PAIN OR SOB Objective - Vital Signs/Intake and Output Vital Signs (last 24 hours): Temp Pulse Resp BP Pulse Ox 98.6 F 65 18 101/58 L 99 10/16/17 07:48 10/16/17 07:48 10/16/17 07:48 10/16/17 07:48 10/16/17 07:48 - Medications Medications: Current Medications Aspirin (Ecotrin) 81 mg PO DAILY [facility] Last Admin: 10/15/17 10:59 Dose: 81 mg Atorvastatin Calcium (Lipitor) 20 mg PO HS [facility] Last Admin: 10/15/17 22:10 Dose: 20 mg Clopidogrel Bisulfate (Plavix) 75 mg PO DAILY [facility] Last Admin: 10/15/17 10:59 Dose: 75 mg Digoxin (Digoxin) 0.125 mg PO DAILY [facility] Last Admin: 10/15/17 10:53 Dose: 0.125 mg Enoxaparin Sodium (Lovenox) 40 mg SC DAILY [facility] PRN Reason: Protocol Last Admin: 10/15/17 10:52 Dose: 40 mg Insulin Human Lispro (Humalog) 0 units SC [facility] PRN Reason: Protocol Last Admin: 10/16/17 05:05 Dose: Not Given Metoprolol Succinate (Toprol Xl) 25 mg PO DAILY [facility] Last Admin: 10/15/17 10:53 Dose: 25 mg Sertraline HCl (Zoloft) 50 mg PO DAILY [facility] Last Admin: 10/15/17 10:52 Dose: 50 mg Tramadol HCl (Ultram) 50 mg PO Q8 [facility] Last Admin: 10/16/17 00:56 Dose: 50 mg - Labs Labs: 10/15/17 06:29 10/15/17 06:29 - Respiratory Exam Respiratory Exam: Clear to Ausculation Bilateral - Cardiovascular Exam Cardiovascular Exam: REGULAR RHYTHM, +S1, +S2 - Extremities Exam Additional comments: NO LE EDEMA - Additional Findings Additional findings: EKG NSR TROPONINS NEGATIVE Assessment and Plan - Assessment and Plan (Free Text) Assessment: CAD-STABLE HYPERTENSION HYPERLIPIDEMIA TYPE 2 DM Plan: CONTINUE METOPROLOL, DIGOXIN, ASPIRIN, CLOPIDOGREL, ATORVASTATIN OK TO DISCHARGE PATIENT FROM THE CARDIAC VIEWPOINT
[2017-10-16 09:25] VITALS: PULSE 65
--- NOTE | 2017-10-16 09:31 | CP.PCM.DIS ---
Provider - Provider Date of Admission: 10/15/17 07:17 Attending physician: Lana Corona DO Consults: Dr House: Cardio Time Spent in preparation of Discharge (in minutes): 25 Diagnosis - Discharge Diagnosis (1) Chest pain Status: Acute Priority: High (2) CAD (coronary artery disease) Status: Chronic Priority: High (3) HLD (hyperlipidemia) Status: Acute (4) COPD (chronic obstructive pulmonary disease) Status: Chronic (5) BPH (benign prostatic hyperplasia) Status: Chronic Priority: Low (6) DM2 (diabetes mellitus, type 2) Status: Chronic Priority: High Hospital Course - Lab Results Lab Results: Most Recent Lab Values WBC 9.1 K/uL (4.8-10.8) 10/15/17 06:29 RBC 4.22 Mil/uL (4.40-5.90) L 10/15/17 06:29 Hgb 13.5 g/dL (12.0-18.0) 10/15/17 06:29 Hct 40.0 % (35.0-51.0) 10/15/17 06:29 MCV 94.7 fl (80.0-94.0) H 10/15/17 06:29 MCH 31.9 pg (27.0-31.0) H 10/15/17 06:29 MCHC 33.7 g/dL (33.0-37.0) 10/15/17 06:29 RDW 15.5 % (11.5-14.5) H 10/15/17 06:29 Plt Count 208 K/uL (130-400) 10/15/17 06:29 MPV 7.7 fl (7.2-11.7) 10/15/17 06:29 Neut % (Auto) 65.5 % (50.0-75.0) 10/15/17 06:29 Lymph % (Auto) 22.1 % (20.0-40.0) 10/15/17 06:29 Dixie % (Auto) 8.1 % (0.0-10.0) 10/15/17 06:29 Eos % (Auto) 3.3 % (0.0-4.0) 10/15/17 06:29 Baso % (Auto) 1.0 % (0.0-2.0) 10/15/17 06:29 Neut # (Auto) 6.0 K/uL (1.8-7.0) 10/15/17 06:29 Lymph # (Auto) 2.0 K/uL (1.0-4.3) 10/15/17 06:29 Dixie # (Auto) 0.7 K/uL (0.0-0.8) 10/15/17 06:29 Eos # (Auto) 0.3 K/uL (0.0-0.7) 10/15/17 06:29 Baso # (Auto) 0.1 K/uL (0.0-0.2) 10/15/17 06:29 Sodium 141 mmol/l (132-148) 10/15/17 06:29 Potassium 4.0 MMOL/L (3.6-5.0) 10/15/17 06:29 Chloride 105 mmol/L (98-107) 10/15/17 06: Carbon Dioxide 24 mmol/L (22-30) 10/15/17 06:29 Anion Gap 16 (10-20) 10/15/17 06:29 BUN 10 mg/dl (9-20) 10/15/17 06:29 Creatinine 0.7 mg/dl (0.8-1.5) L 10/15/17 06:29 Est GFR ( Amer) > 60 10/15/17 06:29 Est GFR (Non-Af Amer) > 60 10/15/17 06:29 POC Glucose (mg/dL) 62 mg/dL (65-110) L 10/16/17 05:43 Random Glucose 127 mg/dL (75-110) H 10/15/17 06:29 Calcium 9.5 mg/dL (8.4-10.2) 10/15/17 06:29 Total Bilirubin 0.6 mg/dl (0.2-1.3) 10/15/17 06:29 AST 18 U/L (17-59) 10/15/17 06:29 ALT 29 U/L (21-72) 10/15/17 06:29 Alkaline Phosphatase 59 U/L (38-126) 10/15/17 06:29 Troponin I 0.0380 ng/mL (0.00-0.120) 10/15/17 18:00 Total Protein 6.9 G/DL (6.3-8.2) 10/15/17 06:29 Albumin 3.8 g/dL (3.5-5.0) 10/15/17 06:29 Globulin 3.1 gm/dL (2.2-3.9) 10/15/17 06:29 Albumin/Globulin Ratio 1.2 (1.0-2.1) 10/15/17 06:29 - Hospital Course Hospital Course: 72 year old male well known to our service, PMH NSTEMI refused cardiac cath, HTN , HLD, ?Multiple sclerosis presents with a several hour of chest pain moderate to severe, sharp, waking him from sleep, nonradiating, associated with mild dyspnea. Patient states he also ran out of Tramadol. No acute changes on EKG. Pt was observed in Telemetry. NO abn rhythm on Tele monitor. Troponin x 3 negative . Cardiology was consulted- Dr House evaluated pt and cleared him for discharge. 1. Chest Pain ACS ruled out , prob musculoskeletal Pain History of CAD HTN Hyperlipidemia Continue ASA, plavix, Lipitor Cardiology Consult: Dr. House EKG: no acute changes cont Metoprolol Trop x 3 negative DM type II accuchecks Pt's glucose low on monitoring , his last Hgba1c done last month was 6.8 d/c Metformin and Glyburide just diet control Depression continue Zoloft Chronic Pain continue Ultram COPD , chronic - cont Xopenex prn and Spiriva BPH -cont Flomax Discharge Exam - Head Exam Head Exam: ATRAUMATIC, NORMAL INSPECTION, NORMOCEPHALIC - Eye Exam Eye Exam: EOMI, Normal appearance Pupil Exam: NORMAL ACCOMODATION - ENT Exam ENT Exam: Mucous Membranes Moist, Normal External Ear Exam - Neck Exam Neck exam: Full Rom - Respiratory Exam Respiratory Exam: NORMAL BREATHING PATTERN. absent: Rales, Wheezes, Respiratory Distress - Cardiovascular Exam Cardiovascular Exam: REGULAR RHYTHM, +S1, +S2 - GI/Abdominal Exam GI & Abdominal Exam: Normal Bowel Sounds, Soft. absent: Tenderness - Extremities Exam Extremities exam: normal capillary refill, pedal pulses present - Back Exam Back exam: FULL ROM. absent: CVA tenderness (L), CVA tenderness (R) - Neurological Exam Neurological exam: Alert, Oriented x3, Reflexes Normal - Psychiatric Exam Psychiatric exam: Normal Affect, Normal Mood - Skin Skin Exam: Dry, Normal Color, Warm Discharge Plan - Discharge Medications Prescriptions: Albuterol/Ipratropium [Duoneb 3 MG/3 Ml-0.5 MG/3 Ml 3 Ml] 3 ml IH Q6 PRN #30 neb PRN Reason: Wheezing traMADol [Ultram] 50 mg PO TID PRN #15 tab PRN Reason: Pain, Moderate (4-7) - Follow Up Plan Condition: GOOD Disposition: HOME/ ROUTINE Additional Instructions: ff up with Dr Pandya in 1 wk ff up with Dr House in 1-2 wks keep appt with Neurology ( Saturday) Referrals: Andi Pandya MD [Staff Provider] - Maximo House MD [Family Provider] - Tr Cabral MD [Staff Provider] -
--- NOTE | 2017-10-16 10:53 | CARD ---
APPROVED REPORT EKG Measurement Heart [id number] <Conclusion> Normal sinus rhythm Left anterior fascicular block ST & T wave abnormality, consider anterolateral ischemia Abnormal ECG
[2017-10-16 11:57] VITALS: BP 114/61; PULSE 69; TEMP 97.9
[2017-10-16 15:02] VITALS: O2SAT 100
== END 2017-10-16 12:20 | disposition home or self-care (01) ==
LOC: H.ER 05:51 → H.ERHOLD 07:17 → H.TEL 08:16
PROVIDERS: ADMIT Student in an Organized Health Care Education/Training Program; ATTEND Student in an Organized Health Care Education/Training Program
DX: R07.9 Chest pain, unspecified (principal); I25.10 Atherosclerotic heart disease of native coronary artery without angina pectoris; Z95.5 Presence of coronary angioplasty implant and graft; Z86.73 Personal history of transient ischemic attack (TIA), and cerebral infarction without residual deficits; Z88.0 Allergy status to penicillin; Z88.6 Allergy status to analgesic agent; G35 Multiple sclerosis; I11.0 Hypertensive heart disease with heart failure; I50.9 Heart failure, unspecified; J43.9 Emphysema, unspecified; E11.9 Type 2 diabetes mellitus without complications; N40.0 Benign prostatic hyperplasia without lower urinary tract symptoms; I25.2 Old myocardial infarction; F32.9 Major depressive disorder, single episode, unspecified; E78.00 Pure hypercholesterolemia, unspecified; E78.5 Hyperlipidemia, unspecified; I48.91 Unspecified atrial fibrillation; F17.200 Nicotine dependence, unspecified, uncomplicated; G89.29 Other chronic pain
CPT/HCPCS: 71045; 80053; 82948; 84484; 85025; 93005; 99285; G0378; J1650

== ENCOUNTER 2017-11-12 01:43 | Emergency (ER) | payer MEDICARE ==
[2017-11-12 01:44] VITALS: PULSE 65; BMI 18.5
[2017-11-12 02:04] VITALS: RESP 18; TEMP 98.3; O2SAT 100
[2017-11-12 02:56] VITALS: BP 161/84; PULSE 70
[2017-11-12 03:05] LABS: HEMOGLOBIN 14.1 g/dL (12.0-18.0); MEAN CELL VOLUME 93.8 fl (80.0-94.0); MEAN CORPUSCULAR HEMOGLOBIN 32.5 pg (27.0-31.0); MEAN CORPUSCULAR HGB CONC 34.6 g/dL (33.0-37.0); RBC 4.36 Mil/uL (4.40-5.90); RED CELL DISTRIBUTION WIDTH 14.3 % (11.5-14.5); WHITE BLOOD COUNT 9.9 K/uL (4.8-10.8)
[2017-11-12 03:14] LABS: BLOOD UREA NITROGEN 9 mg/dl (9-20); CALCIUM 9.4 mg/dL (8.4-10.2); GFR AFRICAN-AMERICAN > 60; GFR NON-AFRICAN AMERICAN > 60
--- NOTE | 2017-11-12 04:04 | ED PDOC ---
HPI: Chest Pain Time Seen by Provider: 11/12/17 02:13 Chief Complaint (Nursing): Chest Pain Chief Complaint (Provider): Chest Pain History Per: Patient History/Exam Limitations: no limitations Onset/Duration Of Symptoms: Days (x 4) Current Symptoms Are (Timing): Still Present Additional Complaint(s): 72 years old male with history of CAD, COPD, hypertension and high cholesterol presents to the ED complaining of chest pain and upper back pain onset 4 days. Chest pain is nonexertional, nonradiating, not associated with diaphoresis. Patient believes that symptoms are due to Tramadol withdrawn since he experienced them before. He reports chronic shortness of breath that is still present at this time. PMD: Maximo House Past Medical History Reviewed: Historical Data, Nursing Documentation, Vital Signs Vital Signs: Last Vital Signs Temp 98.3 F 11/12/17 01:59 Pulse 70 11/12/17 02:55 Resp 18 11/12/17 02:55 BP 161/84 H 11/12/17 02:55 Pulse Ox 100 11/12/17 04:58 - Medical History PMH: Anemia, Anxiety, Asthma, CAD, Cardia Arrhythmia, CHF, COPD, CVA, Depression , Diabetes, Emphysema, Fractures (bilateral feet), HTN, Hypercholesterolemia, Hyperlipidemia, Multiple Sclerosis, Pneumonia, TIA Denies: Bronchitis, HIV, Chronic Kidney Disease - Surgical History Surgical History: Cholecystectomy, Coronary Stent (x3) Denies: CABG - Family History Family History: States: Unknown Family Hx, Diabetes - Home Medications Home Medications: Ambulatory Orders Medication Instructions Recorded Aspirin [Ecotrin] 81 mg PO DAILY #100 tabec 09/18/17 Atorvastatin [Lipitor] 20 mg PO DAILY #30 tab 09/18/17 Clopidogrel [Plavix] 75 mg PO DAILY #30 tab 09/18/17 Digoxin 0.125 mg PO DAILY #30 tab 09/18/17 Metoprolol Succinate [Toprol XL] 25 mg PO DAILY #30 tab 09/18/17 Ropinirole HCl [Requip] 0.5 mg PO Q8 #90 tablet 09/18/17 Sertraline [Zoloft] 50 mg PO DAILY #30 tab 09/18/17 Tamsulosin [Flomax] 0.4 mg PO DAILY #30 cap 09/18/17 Tiotropium [Spiriva] 18 mcg INH DAILY #100 cap 09/18/17 Albuterol/Ipratropium [Duoneb 3 3 ml IH Q6 PRN #30 neb 10/16/17 MG/3 Ml-0.5 MG/3 Ml 3 Ml] Levalbuterol Tartrate [Xopenex Hfa] 15 gm IH BID PRN #1 hfa.aer.ad 10/16/17 traMADol [Ultram] 50 mg PO TID PRN #15 tab 10/16/17 - Allergies Allergies/Adverse Reactions: Allergies Allergy/AdvReac Type Severity Reaction Status Date / Time ampicillin Allergy RASH Verified 11/12/17 01:59 codeine AdvReac HEADACHE Verified 11/12/17 01:59 Review of Systems ROS Statement: Except As Marked, All Systems Reviewed And Found Negative Cardiovascular: Positive for: Chest Pain Respiratory: Positive for: Shortness of Breath Musculoskeletal: Positive for: Back Pain (Upper) Physical Exam - Reviewed Nursing Documentation Reviewed: Yes Vital Signs Reviewed: Yes - Physical Exam Appears: Positive for: Non-toxic, No Acute Distress Head Exam: Positive for: ATRAUMATIC, NORMOCEPHALIC Skin: Positive for: Normal Color, Warm, Dry Eye Exam: Positive for: Normal appearance, EOMI, PERRL Neck: Positive for: Normal, Painless ROM, Supple Cardiovascular/Chest: Positive for: Regular Rate, Rhythm. Negative for: Murmur Respiratory: Positive for: Normal Breath Sounds. Negative for: Respiratory Distress Gastrointestinal/Abdominal: Positive for: Normal Exam, Soft. Negative for: Tenderness Back: Positive for: Normal Inspection. Negative for: L CVA Tenderness Extremity: Positive for: Normal ROM. Negative for: Pedal Edema, Deformity Neurologic/Psych: Positive for: Alert, Oriented - Laboratory Results Result Diagrams: 11/12/17 03:00 11/12/17 03:00 - ECG O2 Sat by Pulse Oximetry: 100 (RA) Pulse Ox Interpretation: Normal Medical Decision Making Medical Decision Making: Time: 399 72 years old male with history of CAD, COPD, HTN and hypercholesterolemia presents with chest pain and Tramadol withdrawal. -EKG unchanged from prior -Vitals are stable -Patient is likely suffering from noncardiac chest pain of musculoskeletal origin -Patient has had multiple visits for similar with negative workup, including recently -Explained to patient that Tramadol is a controlled substance and that per hospital policy, patient will not receive a prescription but will be provided with one dose Scribe Attestation: Documented by Keyona Ramon, acting as a scribe for Kike Mancilla MD. Provider Scribe Attestation: All medical record entries made by the Scribe were at my direction and personally dictated by me. I have reviewed the chart and agree that the record accurately reflects my personal performance of the history, physical exam, medical decision making, and the department course for this patient. I have also personally directed, reviewed, and agree with the discharge instructions and disposition. Disposition - Clinical Impression Clinical Impression: Atypical chest pain - Patient ED Disposition Is Patient to be Admitted: No - Disposition Referrals: Maximo House MD [Primary Care Provider] - Disposition: Routine/Home Disposition Time: 05:03 Condition: GOOD Instructions: Chest Pain That Is Not Caused by the Heart (DC) Forms: Boomi (Upper Sorbian)
--- NOTE | 2017-11-12 08:17 | RAD ---
HISTORY: cp COMPARISON: Frontal chest radiograph 10/15/2017. TECHNIQUE: Chest PA and lateral FINDINGS: LUNGS: No active pulmonary disease. PLEURA: No significant pleural effusion identified. No pneumothorax apparent. CARDIOVASCULAR: Normal. OSSEOUS STRUCTURES: No significant abnormalities. VISUALIZED UPPER ABDOMEN: Surgical clips again noted right upper quadrant abdomen. OTHER FINDINGS: None. IMPRESSION: No interval acute cardiopulmonary disease appreciated.
--- NOTE | 2017-11-12 13:47 | CARD ---
APPROVED REPORT EKG Measurement Heart [id number] <Conclusion> Sinus rhythm with premature atrial complexes LBBB Abnormal ECG
== END 2017-11-12 06:29 | disposition home or self-care (01) ==
LOC: H.ER 01:43
DX: R07.9 Chest pain, unspecified (principal); E11.9 Type 2 diabetes mellitus without complications; Z86.59 Personal history of other mental and behavioral disorders; G35 Multiple sclerosis; J44.9 Chronic obstructive pulmonary disease, unspecified; Z86.73 Personal history of transient ischemic attack (TIA), and cerebral infarction without residual deficits; Z95.5 Presence of coronary angioplasty implant and graft; Z79.82 Long term (current) use of aspirin; Z88.5 Allergy status to narcotic agent

== ENCOUNTER 2017-11-13 01:14 | Emergency (ER) | payer MEDICARE ==
[2017-11-13 01:14] VITALS: PULSE 65; BMI 18.5
[2017-11-13 01:41] VITALS: BP 144/81; PULSE 77; RESP 16; TEMP 98.7; O2SAT 98
--- NOTE | 2017-11-13 02:27 | ED PDOC ---
HPI: Chest Pain Time Seen by Provider: 11/13/17 01:20 Chief Complaint (Nursing): Chest Pain Chief Complaint (Provider): chest pain, upper back pain History Per: Patient History/Exam Limitations: no limitations Onset/Duration Of Symptoms: Days Additional Complaint(s): HX of MS, HTN, CAD, COPD, CHF, active smoker presenting with chest pain, rib pain, upper back pain, patient was in ER yesterday for similar symptoms, states that his neurologist Dr. Arellano is out of the [place] and hasn't refilled his tramadol prescription, states he's been out for 5 days and because of it has been having muscle pain in his upper back and chest. States that he has difficulty sleeping as well as a result of not taking it. States he spoke with Dr. House yesterday who tried to reach out to Dr. Arellano as well, according to patient. Denies shortness of breath, sweats, chills, cough, fever. Past Medical History Reviewed: Historical Data, Nursing Documentation, Vital Signs Vital Signs: Last Vital Signs Temp 98.7 F 11/13/17 01:35 Pulse 77 11/13/17 01:35 Resp 16 11/13/17 01:35 BP 144/81 11/13/17 01:35 Pulse Ox 98 11/13/17 01:35 - Medical History PMH: Anemia, Anxiety, Asthma, CAD, Cardia Arrhythmia, CHF, COPD, CVA, Depression , Diabetes, Emphysema, Fractures (bilateral feet), HTN, Hypercholesterolemia, Hyperlipidemia, Multiple Sclerosis, Pneumonia, TIA Denies: Bronchitis, HIV, Chronic Kidney Disease - Surgical History Surgical History: Cholecystectomy, Coronary Stent (x3) Denies: CABG - Family History Family History: States: Unknown Family Hx, Diabetes - Home Medications Home Medications: Ambulatory Orders Medication Instructions Recorded Aspirin [Ecotrin] 81 mg PO DAILY #100 tabec 09/18/17 Atorvastatin [Lipitor] 20 mg PO DAILY #30 tab 09/18/17 Clopidogrel [Plavix] 75 mg PO DAILY #30 tab 09/18/17 Digoxin 0.125 mg PO DAILY #30 tab 09/18/17 Metoprolol Succinate [Toprol XL] 25 mg PO DAILY #30 tab 09/18/17 Ropinirole HCl [Requip] 0.5 mg PO Q8 #90 tablet 09/18/17 Sertraline [Zoloft] 50 mg PO DAILY #30 tab 09/18/17 Tamsulosin [Flomax] 0.4 mg PO DAILY #30 cap 09/18/17 Tiotropium [Spiriva] 18 mcg INH DAILY #100 cap 09/18/17 Albuterol/Ipratropium [Duoneb 3 3 ml IH Q6 PRN #30 neb 10/16/17 MG/3 Ml-0.5 MG/3 Ml 3 Ml] Levalbuterol Tartrate [Xopenex Hfa] 15 gm IH BID PRN #1 hfa.aer.ad 10/16/17 traMADol [Ultram] 50 mg PO TID PRN #15 tab 10/16/17 traMADol [Ultram] 50 mg PO BID #10 tab 11/13/17 - Allergies Allergies/Adverse Reactions: Allergies Allergy/AdvReac Type Severity Reaction Status Date / Time ampicillin Allergy RASH Verified 11/12/17 01:59 codeine AdvReac HEADACHE Verified 11/12/17 01:59 Review of Systems ROS Statement: Except As Marked, All Systems Reviewed And Found Negative Cardiovascular: Positive for: Chest Pain Musculoskeletal: Positive for: Back Pain Physical Exam - Reviewed Nursing Documentation Reviewed: Yes Vital Signs Reviewed: Yes - Physical Exam Appears: Positive for: Well, Non-toxic, No Acute Distress Head Exam: Positive for: ATRAUMATIC, NORMAL INSPECTION, NORMOCEPHALIC Skin: Positive for: Normal Color, Warm, DRY Eye Exam: Positive for: EOMI, Normal appearance, PERRL ENT: Positive for: Normal ENT Inspection Neck: Positive for: Normal, Painless ROM Cardiovascular/Chest: Positive for: Regular Rate, Rhythm. Negative for: Chest Non Tender (tenderness to palpation of bilateral chest wall) Respiratory: Positive for: CNT, Normal Breath Sounds Gastrointestinal/Abdominal: Positive for: Normal Exam, Soft Back: Positive for: Normal Inspection, Muscle Spasm Extremity: Positive for: Normal ROM Neurologic/Psych: Positive for: Alert, Oriented - ECG O2 Sat by Pulse Oximetry: 98 Pulse Ox Interpretation: Normal Medical Decision Making Medical Decision Making: Patient with multiple medication problems presenting with chest pain, back pain , muscle pains. Had a long discussion with patient regarding proper pain management and need to followup and take his care into his own hands. States he tried to reach Dr. Arellano for a refill but was unable to reach him beacause he is [place] the [place]. Patient states that Dr. House was not willing to refill his prescription and instead tried to reach out to Dr. Arellano. I do not believe this patient is suffering from ACS/dissection/ID/PNA/PTX, he had negative troponin and CXR yesterday and today's EKG is similar to prior. My impression of this patient is that he is having pain becuase of MS and not having tramadol. Patient states he ran out of his tramadol early because he was taking it TID but Dr. Arellano cut it down to BID but he felt is pain was not well controlled. I will prescribe a SHORT course of tramadol for patient and I explained that in the future, this courtesy will not be extended and that we are only granting this beacause his neurolgist is not reachable. Patient is very well appearing, normal vitals, normal PE, unchanged EKG. Advised patient he should followup with Dr. Hudson, states he has an appointment for early next week, advsied patient that he should see him sooner than that. Disposition - Clinical Impression Clinical Impression: Chest wall pain - Patient ED Disposition Is Patient to be Admitted: No - Disposition Referrals: Maximo House MD [Primary Care Provider] - Disposition: Routine/Home Disposition Time: 02:33 Condition: STABLE Prescriptions: traMADol [Ultram] 50 mg PO BID #10 tab Instructions: Chest Pain That Is Not Caused by the Heart (DC)
== END 2017-11-13 03:38 | disposition home or self-care (01) ==
LOC: H.ER 01:14
DX: R07.89 Other chest pain (principal); E11.9 Type 2 diabetes mellitus without complications; Z86.73 Personal history of transient ischemic attack (TIA), and cerebral infarction without residual deficits; Z95.5 Presence of coronary angioplasty implant and graft

== ENCOUNTER 2017-11-28 00:27 | Emergency (ER) | payer MEDICARE, OTHER ==
[2017-11-28 00:27] VITALS: PULSE 65; BMI 18.5
[2017-11-28 00:43] VITALS: RESP 18; TEMP 98.4
[2017-11-28 01:35] LABS: BASO # 0.2 K/uL (0.0-0.2); BASO % 2.2 % (0.0-2.0); EOS # 0.4 K/uL (0.0-0.7); EOS % 4.9 % (0.0-4.0); HEMOGLOBIN 13.8 g/dL (12.0-18.0); LYMPH # 2.2 K/uL (1.0-4.3); LYMPH % 26.1 % (20.0-40.0); MEAN CELL VOLUME 93.6 fl (80.0-94.0); MEAN CORPUSCULAR HEMOGLOBIN 31.3 pg (27.0-31.0); MEAN CORPUSCULAR HGB CONC 33.5 g/dL (33.0-37.0); MEAN PLATELET VOLUME 7.7 fl (7.2-11.7); MONO # 0.6 K/uL (0.0-0.8); MONO % 6.6 % (0.0-10.0); NEUT # 5.1 K/uL (1.8-7.0); NEUT % 60.2 % (50.0-75.0); RBC 4.4 Mil/uL (4.40-5.90); RED CELL DISTRIBUTION WIDTH 14.2 % (11.5-14.5); WHITE BLOOD COUNT 8.6 K/uL (4.8-10.8)
[2017-11-28 01:39] LABS: BLOOD UREA NITROGEN 13 mg/dl (9-20); CALCIUM 9.4 mg/dL (8.4-10.2); GFR AFRICAN-AMERICAN > 60; GFR NON-AFRICAN AMERICAN > 60
--- NOTE | 2017-11-28 01:54 | ED PDOC ---
HPI: Chest Pain Time Seen by Provider: 11/28/17 00:28 Chief Complaint (Nursing): Chest Pain Chief Complaint (Provider): Chest Pain History Per: Patient History/Exam Limitations: no limitations Onset/Duration Of Symptoms: Hrs ([employer]) Current Symptoms Are (Timing): Still Present Quality: Tightness Additional Complaint(s): 72 year old male, who is well known to this provider for multiple visits to the ED, with a history of COPD, CHF, HTN, arthritis presents to the ED with chest tightness. Patient reports he has not been able to take his Tramadol and feels he is going through withdrawal and is requesting Tramadol. He denies nausea, vomiting diaphoresis or any other medical complaints. PMD: Dr. Maximo House Past Medical History Reviewed: Historical Data, Nursing Documentation, Vital Signs Vital Signs: Last Vital Signs Temp 98.4 F 11/28/17 00:40 Pulse 79 11/28/17 03:09 Resp 18 11/28/17 03:09 BP 122/72 11/28/17 03:09 Pulse Ox 100 11/28/17 03:09 - Medical History PMH: Anemia, Anxiety, Arthritis, Asthma, CAD, Cardia Arrhythmia, CHF, COPD, CVA , Depression, Diabetes, Emphysema, Fractures (bilateral feet), HTN, Hypercholesterolemia, Hyperlipidemia, Multiple Sclerosis, Pneumonia, TIA Denies: Bronchitis, HIV, Chronic Kidney Disease - Surgical History Surgical History: Cholecystectomy, Coronary Stent (x3) Denies: CABG - Family History Family History: States: Unknown Family Hx, Diabetes - Social History Current smoker - smoking cessation education provided: Yes (1 ppd) Ex-Smoker (has not smoked in the last 12 months): No Alcohol: None Drugs: Denies - Home Medications Home Medications: Ambulatory Orders Medication Instructions Recorded Aspirin [Ecotrin] 81 mg PO DAILY #100 tabec 09/18/17 Atorvastatin [Lipitor] 20 mg PO DAILY #30 tab 09/18/17 Clopidogrel [Plavix] 75 mg PO DAILY #30 tab 09/18/17 Digoxin 0.125 mg PO DAILY #30 tab 09/18/17 Metoprolol Succinate [Toprol XL] 25 mg PO DAILY #30 tab 09/18/17 Ropinirole HCl [Requip] 0.5 mg PO Q8 #90 tablet 09/18/17 Sertraline [Zoloft] 50 mg PO DAILY #30 tab 09/18/17 Tamsulosin [Flomax] 0.4 mg PO DAILY #30 cap 09/18/17 Tiotropium [Spiriva] 18 mcg INH DAILY #100 cap 09/18/17 Albuterol/Ipratropium [Duoneb 3 3 ml IH Q6 PRN #30 neb 10/16/17 MG/3 Ml-0.5 MG/3 Ml 3 Ml] Levalbuterol Tartrate [Xopenex Hfa] 15 gm IH BID PRN #1 hfa.aer.ad 10/16/17 traMADol [Ultram] 50 mg PO TID PRN #15 tab 10/16/17 traMADol [Ultram] 50 mg PO BID #10 tab 11/13/17 traMADol [Ultram] 50 mg PO Q6 PRN #8 tab 11/28/17 - Allergies Allergies/Adverse Reactions: Allergies Allergy/AdvReac Type Severity Reaction Status Date / Time ampicillin Allergy RASH Verified 11/12/17 01:59 codeine AdvReac HEADACHE Verified 11/12/17 01:59 Review of Systems ROS Statement: Except As Marked, All Systems Reviewed And Found Negative Constitutional: Negative for: Sweats Cardiovascular: Positive for: Chest Pain Respiratory: Positive for: Shortness of Breath Gastrointestinal: Negative for: Nausea, Vomiting Physical Exam - Reviewed Nursing Documentation Reviewed: Yes Vital Signs Reviewed: Yes - Physical Exam Appears: Positive for: Non-toxic, No Acute Distress Head Exam: Positive for: ATRAUMATIC, NORMAL INSPECTION, NORMOCEPHALIC Skin: Positive for: Normal Color, Warm, Dry Eye Exam: Positive for: EOMI, Normal appearance, PERRL Neck: Positive for: Normal, Painless ROM Cardiovascular/Chest: Positive for: Regular Rate, Rhythm. Negative for: Murmur Respiratory: Positive for: Normal Breath Sounds. Negative for: Respiratory Distress Gastrointestinal/Abdominal: Positive for: Normal Exam, Soft. Negative for: Tenderness Extremity: Positive for: Normal ROM (upper and lower extremities) Neurologic/Psych: Positive for: Alert, Oriented (x3) - Laboratory Results Result Diagrams: 11/28/17 01:10 11/28/17 01:10 - ECG O2 Sat by Pulse Oximetry: 97 (RA) Pulse Ox Interpretation: Normal Medical Decision Making Medical Decision Making: Time: 00:39 Initial Impression: 72 y/o male with chest pain Initial Plan: --Glucose, POC --EKG --BMP --Troponin --CBC with differentials --Heplock Insertion Time: 1:03 --Tramadol 50 mg PO --CXR Time: 1:48 --Digoxin --Labs show no clinically significant abnormalities. CXR shows no active disease. --Patient was advised to stay in ED due to multiple risk factors but is choosing to leave against medical advice. The EP has personally explained to the patient that choosing to do so may result in permanent bodily harm or . The EP discussed at great length that without further evaluation and monitoring there may be unforeseen circumstances and/or deterioration causing permanent bodily harm or as a result of their choice. The patient verbalized these risks back to the physician in laymans terms. The patient is alert, oriented, and shows the mental capacity to make clear decisions regarding the patients health care at this time. The patient continues to wish to leave against medical advice. --In light of the patient's decision to leave AMA, follow-up has been arranged and the patient is aware of the importance of following up as instructed. The patient has been advised that they should return to the ED immediately if they change their mind at any time, or if their condition begins to change or worsen in any way. Scribe Attestation: Documented by Domenica Kuhn, acting as a scribe for Omid Baca MD Provider Scribe Attestation: All medical record entries made by the Scribe were at my direction and personally dictated by me. I have reviewed the chart and agree that the record accurately reflects my personal performance of the history, physical exam, medical decision making, and the department course for this patient. I have also personally directed, reviewed, and agree with the discharge instructions and disposition. Disposition - Clinical Impression Clinical Impression: Acute chest pain - Disposition Referrals: Maximo House MD [Primary Care Provider] - Disposition: Against Medical Advice Disposition Time: 03:00 Condition: STABLE Prescriptions: traMADol [Ultram] 50 mg PO Q6 PRN #8 tab PRN Reason: pain Instructions: Chest Pain Forms: [facility] (Estonian)
[2017-11-28 03:10] VITALS: BP 122/72; PULSE 79
[2017-11-28 06:35] VITALS: O2SAT 97
--- NOTE | 2017-11-28 07:48 | RAD ---
HISTORY: chest pain COMPARISON: Chest radiographs 11/12/2017. FINDINGS: LUNGS: No active pulmonary disease. PLEURA: No significant pleural effusion identified, no pneumothorax apparent. CARDIOVASCULAR: Normal. OSSEOUS STRUCTURES: No significant abnormalities. VISUALIZED UPPER ABDOMEN: Surgical clips right upper quadrant abdomen. OTHER FINDINGS: None. IMPRESSION: No interval acute cardiopulmonary disease appreciated.
--- NOTE | 2017-11-28 17:08 | CARD ---
APPROVED REPORT EKG Measurement Heart [id number] <Conclusion> Normal sinus rhythm Left axis deviation Left ventricular hypertrophy with repolarization abnormality Cannot rule out Septal infarct, age undetermined Abnormal ECG
== END 2017-11-28 03:12 | disposition left against medical advice (07) ==
LOC: H.ER 00:27
DX: R07.89 Other chest pain (principal); E11.9 Type 2 diabetes mellitus without complications; E78.00 Pure hypercholesterolemia, unspecified; G35 Multiple sclerosis; I11.0 Hypertensive heart disease with heart failure; I25.10 Atherosclerotic heart disease of native coronary artery without angina pectoris; Z86.73 Personal history of transient ischemic attack (TIA), and cerebral infarction without residual deficits; Z95.5 Presence of coronary angioplasty implant and graft

== ENCOUNTER 2017-12-25 19:44 | Inpatient (IN) | payer MEDICARE ==
[2017-12-25 19:44] VITALS: BMI 18.5
[2017-12-25 20:48] LABS: BASO # 0.1 K/uL (0.0-0.2); BASO % 1.2 % (0.0-2.0); EOS # 0.2 K/uL (0.0-0.7); EOS % 3.4 % (0.0-4.0); HEMOGLOBIN 12.7 g/dL (12.0-18.0); LYMPH # 1.8 K/uL (1.0-4.3); LYMPH % 24.2 % (20.0-40.0); MEAN CELL VOLUME 94.9 fl (80.0-94.0); MEAN CORPUSCULAR HEMOGLOBIN 31.8 pg (27.0-31.0); MEAN CORPUSCULAR HGB CONC 33.5 g/dL (33.0-37.0); MEAN PLATELET VOLUME 8.6 fl (7.2-11.7); MONO # 0.5 K/uL (0.0-0.8); MONO % 7.1 % (0.0-10.0); NEUT # 4.7 K/uL (1.8-7.0); NEUT % 64.1 % (50.0-75.0); RED CELL DISTRIBUTION WIDTH 15.3 % (11.5-14.5); WHITE BLOOD COUNT 7.4 K/uL (4.8-10.8)
[2017-12-25 21:06] LABS: INR 1.1 (0.9-1.2); PROTHROMBIN TIME 11.9 Seconds (9.8-13.1)
--- NOTE | 2017-12-25 21:17 | ED PDOC ---
HPI: Chest Pain Time Seen by Provider: 12/25/17 19:57 Chief Complaint (Nursing): Chest Pain Chief Complaint (Provider): Chest Pain History Per: Patient History/Exam Limitations: no limitations Onset/Duration Of Symptoms: Hrs (x1) Current Symptoms Are (Timing): Still Present Additional Complaint(s): 72 y/o male with a PMHx of asthma, COPD, CAD, pneumonia, diabetes, HTN, emphysema, and CHF presenting for evaluation of chest pain x1 hour associated with shortness of breath. Patient states the pain began as right sided chest pain which then began to radiate to his back. He denies any fever or cough. He states his pain feels similar to previous episodes of chest pain. PMD: Dr. House Past Medical History Reviewed: Historical Data, Nursing Documentation, Vital Signs Vital Signs: Last Vital Signs Temp 98.0 F 12/28/17 12:30 Pulse 71 12/28/17 12:30 Resp 20 12/28/17 12:30 BP 113/75 12/28/17 12:30 Pulse Ox 94 L 12/28/17 12:30 - Medical History PMH: Anemia, Anxiety, Arthritis, Asthma, CAD, Cardia Arrhythmia, CHF, COPD, CVA , Depression, Diabetes, Emphysema, Fractures (bilateral feet), HTN, Hypercholesterolemia, Hyperlipidemia, Multiple Sclerosis, Pneumonia, TIA Denies: Bronchitis, HIV, Chronic Kidney Disease - Surgical History Surgical History: Cholecystectomy, Coronary Stent (x3) Denies: CABG - Family History Family History: States: Unknown Family Hx, Diabetes - Social History Current smoker - smoking cessation education provided: Yes Alcohol: None Drugs: Denies - Home Medications Home Medications: Ambulatory Orders Medication Instructions Recorded Aspirin [Ecotrin] 81 mg PO DAILY #100 tabec 09/18/17 Atorvastatin [Lipitor] 20 mg PO DAILY #30 tab 09/18/17 Clopidogrel [Plavix] 75 mg PO DAILY #30 tab 09/18/17 Digoxin 0.125 mg PO DAILY #30 tab 09/18/17 Metoprolol Succinate XL [Toprol XL] 25 mg PO DAILY #30 tab 09/18/17 Ropinirole HCl [Requip] 0.5 mg PO Q8 #90 tablet 09/18/17 Sertraline [Zoloft] 50 mg PO DAILY #30 tab 09/18/17 Tamsulosin [Flomax] 0.4 mg PO DAILY #30 cap 09/18/17 Tiotropium [Spiriva] 18 mcg INH DAILY #100 cap 09/18/17 Albuterol/Ipratropium [Duoneb 3 3 ml IH Q6 PRN #30 neb 10/16/17 MG/3 Ml-0.5 MG/3 Ml 3 Ml] Levalbuterol Tartrate [Xopenex Hfa] 15 gm IH BID PRN #1 hfa.aer.ad 10/16/17 traMADol [Ultram] 50 mg PO TID PRN #15 tab 10/16/17 traMADol [Ultram] 50 mg PO BID #10 tab 11/13/17 traMADol [Ultram] 50 mg PO Q6 PRN #8 tab 11/28/17 - Allergies Allergies/Adverse Reactions: Allergies Allergy/AdvReac Type Severity Reaction Status Date / Time ampicillin Allergy RASH Verified 12/25/17 19:47 codeine AdvReac HEADACHE Verified 12/25/17 19:47 Review of Systems ROS Statement: Except As Marked, All Systems Reviewed And Found Negative (and as per HPI) Constitutional: Negative for: Fever Cardiovascular: Positive for: Chest Pain Respiratory: Positive for: Shortness of Breath. Negative for: Cough Musculoskeletal: Positive for: Back Pain Physical Exam - Reviewed Nursing Documentation Reviewed: Yes Vital Signs Reviewed: Yes - Physical Exam Appears: Positive for: Well (cigarette odor present), Non-toxic, No Acute Distress Head Exam: Positive for: ATRAUMATIC, NORMOCEPHALIC Skin: Positive for: Warm, Dry Eye Exam: Positive for: EOMI, PERRL ENT: Negative for: Pharyngeal Erythema, Tonsillar Exudate Neck: Positive for: Painless ROM, Supple Cardiovascular/Chest: Positive for: Regular Rate, Rhythm. Negative for: Murmur Respiratory: Positive for: Rhonchi (faint bilateral). Negative for: Accessory Muscle Use, Rales, Wheezing, Respiratory Distress Gastrointestinal/Abdominal: Positive for: Soft. Negative for: Tenderness Back: Positive for: Normal Inspection. Negative for: Decreased ROM Extremity: Negative for: Pedal Edema Lymphatic: Negative for: Adenopathy Neurologic/Psych: Positive for: Alert. Negative for: Motor/Sensory Deficits - Laboratory Results Result Diagrams: 12/28/17 04:45 12/28/17 04:45 - ECG ECG: Positive for: Interpreted By Me, Viewed By Me ECG Rhythm: Positive for: Sinus Tachycardia, Left Bundle Branch Block (LVH) O2 Sat by Pulse Oximetry: 98 (RA) Pulse Ox Interpretation: Normal Medical Decision Making Medical Decision Makin:59 Impression: Chest pain. Differential diagnoses include, but are not limited to COPD exacerbation, acute coronary syndrome, angina, costocondritis. Plan: -EKG -BNP -CMP -Digoxin -Drug screen -Magnesium -Phosphorus -Troponin I -Urine dipstick -CXR -Blood culture -residential monitor -IV insertion -Reevaluation Pt needs hospitalization for r/o ACS given strong risk factors for MACE. Initial ER workup negative. DW Dr Verdin Hospitalist for PMD Dr House Scribe Attestation: Documented by Clarke Kaiser, acting as a scribe for Kelli Sanchez MD. Provider Scribe Attestation: All medical record entries made by the Scribe were at my direction and personally dictated by me. I have reviewed the chart and agree that the record accurately reflects my personal performance of the history, physical exam, medical decision making, and the department course for this patient. I have also personally directed, reviewed, and agree with the discharge instructions and disposition. Disposition - Clinical Impression Clinical Impression: Chest pain in adult - Disposition Disposition Time: 22:00 Condition: FAIR - Pt Status Changed To: Hospital Disposition Of: Observation - POA Present On Arrival: None
[2017-12-25 21:20] LABS: ALB/GLOB RATIO 1.3 (1.0-2.1); ALT/SGPT 23 U/L (21-72); AST/SGOT 23 U/L (17-59); BLOOD UREA NITROGEN 11 mg/dl (9-20); CALCIUM 9.1 mg/dL (8.4-10.2); GFR AFRICAN-AMERICAN > 60; GFR NON-AFRICAN AMERICAN > 60
[2017-12-25 22:01] LABS: B-TYPE NATRIURETIC PEPTIDE 3420 pg/ml (0-900)
[2017-12-25 22:23] LABS: BARBITURATES, UR NEGATIVE (NEGATIVE); BENZODIAZEPINES, UR NEGATIVE (NEGATIVE); OPIATES, UR NEGATIVE (NEGATIVE); PHENCYCLIDINE, UR NEGATIVE (NEGATIVE)
--- NOTE | 2017-12-25 22:36 | CP.PCM.HP ---
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 CAD s/p PCI X3, fefusing cardiac cath earlier this year, comes with one hour of chest pain on exertion, radiating to the right upper back and associated with SOB. He took 2 Aspirins at home without pain relief. No coughing nor palpitation, no fever nor dizziness. PMH: Anemia, Anxiety, Arthritis, Asthma, CAD, Cardia Arrhythmia, CHF, COPD, CVA , Depression, DM II; Emphysema, Fractures (bilateral feet), HTN, HLD; , MS, Pneumonia, TIA PSH: Cholecystectomy, Coronary Stent (x3); Cataract surgery SH: Smokes6-7 Cigarettes daily; No illegal drug use; No Alconol FH:States: No known family Hx Allergies: Ampicillin; Codeine Present on Admission - Present on Admission Any Indicators Present on Admission: No History of DVT/PE: No History of Uncontrolled Diabetes: No Urinary Catheter: No Decubitus Ulcer Present: No Review of Systems - Constitutional Constitutional: absent: Anorexia, Chills, Fever, Headache - EENT Eyes: Requires Corrective Lenses. absent: Diplopia, Floaters, Sees Flashes Ears: Decreased Hearing. absent: Tinnitus Nose/Mouth/Throat: absent: Epistaxis, Nasal Congestion - Cardiovascular Cardiovascular: Chest Pain, Dyspnea. absent: Edema - Respiratory Respiratory: Dyspnea. absent: Cough, Wheezing, Stridor - Gastrointestinal Gastrointestinal: absent: Abdominal Pain, Constipation, Diarrhea, Nausea, Vomiting - Genitourinary Genitourinary: absent: Dysuria, Flank Pain, Urinary Frequency - Musculoskeletal Musculoskeletal: Abnormal Gait. absent: Arthralgias - Integumentary Integumentary: absent: Pruritus, Rash, Skin Ulcer, Sores, Striae, Swelling - Neurological Neurological: absent: Confusion, Dizziness, Focal Weakness, Headaches, Weakness - Psychiatric Psychiatric: Anxiety, Depression. absent: Panic Attacks - Endocrine Endocrine: absent: Palpitations, Polydipsia, Polyphagia, Polyuria - Hematologic/Lymphatic Hematologic: absent: Easy Bleeding, Easy Bruising Past Patient History - Infectious Disease Hx of Infectious Diseases: None - Tetanus Immunizations Tetanus Immunization: Unknown - Past Medical History & Family History Past Medical History?: Yes - Past Social History Smoking Status: Heavy Smoker > 10 Cigarettes Daily Chewing Tobacco Use: No Cigar Use: No Alcohol: None Drugs: Denies - CARDIAC Hx Cardia Arrhythmia: Yes Hx Congestive Heart Failure: Yes Hx Hypercholesterolemia: Yes Hx Hypertension: Yes - PULMONARY Hx Asthma: Yes Hx Bronchitis: No Hx Chronic Obstructive Pulmonary Disease (COPD): Yes Hx Emphysema: Yes Hx Pneumonia: Yes - NEUROLOGICAL Hx Multiple Sclerosis: Yes Hx Transient Ischemic Attacks (TIA): Yes - HEENT Hx HEENT Problems: No - RENAL Hx Chronic Kidney Disease: No - ENDOCRINE/METABOLIC Hx Endocrine Disorders: Yes Hx Diabetes Mellitus Type 2: Yes - HEMATOLOGICAL/ONCOLOGICAL Hx Anemia: Yes Hx Human Immunodeficiency Virus (HIV): No - INTEGUMENTARY Hx Dermatological Problems: No - MUSCULOSKELETAL/RHEUMATOLOGICAL Hx Arthritis: Yes Hx Fractures: Yes (bilateral feet) - GASTROINTESTINAL Hx Gastrointestinal Disorders: No - GENITOURINARY/GYNECOLOGICAL Hx Genitourinary Disorders: No - PSYCHIATRIC Hx Anxiety: Yes Hx Depression: Yes - SURGICAL HISTORY Hx Cholecystectomy: Yes Hx Coronary Artery Bypass Graft: No Hx Coronary Stent: Yes (x3) - ANESTHESIA Hx Anesthesia: Yes Hx Anesthesia Reactions: No Hx Malignant Hyperthermia: No Meds Allergies/Adverse Reactions: Allergies Allergy/AdvReac Type Severity Reaction Status Date / Time ampicillin Allergy RASH Verified 12/25/17 19:47 codeine AdvReac HEADACHE Verified 12/25/17 19:47 Physical Exam - Constitutional Appears: No Acute Distress - Head Exam Head Exam: ATRAUMATIC, NORMAL INSPECTION, NORMOCEPHALIC - Eye Exam Eye Exam: EOMI, Normal appearance Pupil Exam: NORMAL ACCOMODATION, PERRL - ENT Exam ENT Exam: Mucous Membranes Moist, Normal Exam, Normal External Ear Exam - Neck Exam Neck exam: Positive for: Full Rom, Normal Inspection. Negative for: Lymphadenopathy, Tenderness - Respiratory Exam Respiratory Exam: Clear to Auscultation Bilateral. absent: Rales, Rhonchi, Wheezes - Cardiovascular Exam Cardiovascular Exam: REGULAR RHYTHM, RRR, +S1, +S2. absent: Gallop, JVD - GI/Abdominal Exam GI & Abdominal Exam: Normal Bowel Sounds, Soft. absent: Mass, Organomegaly, Tenderness - Rectal Exam Rectal Exam: Deferred - Extremities Exam Extremities exam: Negative for: pedal edema Additional comments: Patient wearing bilateral foot braces for apparent foot drop from MS. - Back Exam Back exam: NORMAL INSPECTION. absent: CVA tenderness (L), CVA tenderness (R) - Neurological Exam Neurological exam: Alert, CN II-XII Intact, Oriented x3, Reflexes Normal - Psychiatric Exam Psychiatric exam: Normal Affect, Normal Mood - Skin Skin Exam: Dry, Intact, Normal Color, Warm Results - Vital Signs Recent Vital Signs: Last Vital Signs Temp 98.4 F 12/25/17 19:47 Pulse 108 H 12/25/17 19:47 Resp 16 12/25/17 19:47 BP 136/77 12/25/17 19:47 Pulse Ox 98 12/25/17 21:41 - Labs Result Diagrams: 12/25/17 20:43 12/25/17 20:43 Labs: Laboratory Results - last 24 hr 12/25/17 12/25/17 12/25/17 20:43 20:43 20:43 WBC 7.4 RBC 4.00 L Hgb 12.7 Hct 37.9 MCV 94.9 H MCH 31.8 H MCHC 33.5 RDW 15.3 H Plt Count 195 D MPV 8.6 Neut % (Auto) 64.1 Lymph % (Auto) 24.2 [place] % (Auto) 7.1 Eos % (Auto) 3.4 Baso % (Auto) 1.2 Neut # (Auto) 4.7 Lymph # (Auto) 1.8 [place] # (Auto) 0.5 Eos # (Auto) 0.2 Baso # (Auto) 0.1 PT INR APTT Sodium 136 Potassium 3.5 L Chloride 101 Carbon Dioxide 26 Anion Gap 13 BUN 11 Creatinine 0.8 Est GFR ( Amer) > 60 Est GFR (Non-Af Amer) > 60 Random Glucose 274 H Calcium 9.1 Phosphorus 3.2 Magnesium 1.6 Total Bilirubin 0.7 AST 23 ALT 23 Alkaline Phosphatase 68 Troponin I 0.0890 NT-Pro-B Natriuret Pep 3420 H Total Protein 7.0 Albumin 4.0 Globulin 3.1 Albumin/Globulin Ratio 1.3 Digoxin 0.6 L Urine Opiates Screen Urine Methadone Screen Ur Barbiturates Screen Ur Phencyclidine Scrn Ur Amphetamines Screen U Benzodiazepines Scrn U Oth Cocaine Metabols U Cannabinoids Screen 12/25/17 12/25/17 20:43 21:00 WBC RBC Hgb Hct MCV MCH MCHC RDW Plt Count MPV Neut % (Auto) Lymph % (Auto) [place] % (Auto) Eos % (Auto) Baso % (Auto) Neut # (Auto) Lymph # (Auto) [place] # (Auto) Eos # (Auto) Baso # (Auto) PT 11.9 INR 1.1 APTT 33.0 Sodium Potassium Chloride Carbon Dioxide Anion Gap BUN Creatinine Est GFR ( Amer) Est GFR (Non-Af Amer) Random Glucose Calcium Phosphorus Magnesium Total Bilirubin AST ALT Alkaline Phosphatase Troponin I NT-Pro-B Natriuret Pep Total Protein Albumin Globulin Albumin/Globulin Ratio Digoxin Urine Opiates Screen Negative Urine Methadone Screen Negative Ur Barbiturates Screen Negative Ur Phencyclidine Scrn Negative Ur Amphetamines Screen Negative U Benzodiazepines Scrn Negative U Oth Cocaine Metabols Negative U Cannabinoids Screen Negative - Imaging and Cardiology Chest x-ray Status: Image reviewed by me Additional comment: No Infiltrate. Assessment & Plan - Assessment and Plan (Free Text) Assessment: #. Chest Pain #. CAD #. DM II with Hyperglycemia #. Hypokalemia #. COPD #. Anxiety/depression #. MS Plan: 72 years old male with hx of COPD, DM, HTN. CAD s/p PCI X3, fefusing cardiac cath earlier this year, comes with one hour of chest pain on exertion, radiating to the right upper back and associated with SOB. He took 2 Aspirins at home without pain relief. No coughing nor palpitation, no fever nor dizziness. #. Chest Pain - Consult Dr House cardiology - Serial troponin - Serial EKG #. CAD - ASA/Plavix/lipitor/Metoprolol #. DM II with Hyperglycemia - Regular Insulin sliding scale according to accucheck #. Hypokalemia - Replace with KCL - Follow electrolytes #. COPD - Spiriva - Albuterol #. Anxiety/depression - Zoloft - #. restless leg syndrome - Requip #. DVT prophylaxis with Lovenox #. Code Status: Full - Date & Time Date: 12/25/17 Time: 22:36
[2017-12-25] MEDS ORDERED: Albuterol-Ipratrop 3 mg / 0.5 (3 ml) UD IH PRN (22:48)
[2017-12-25] MEDS ORDERED: Potassium Chloride 20 mEq/15 ml LIQ UD PO ONE (22:56)
[2017-12-26 05:35] LABS: BLOOD UREA NITROGEN 10 mg/dl (9-20); CALCIUM 9.2 mg/dL (8.4-10.2); GFR AFRICAN-AMERICAN > 60; GFR NON-AFRICAN AMERICAN > 60; HDL CHOLESTEROL 18 MG/DL (30-70)
[2017-12-26 05:46] LABS: LDL CHOLESTEROL 87 mg/dL (0-129)
[2017-12-26] MEDS: Insulin Regular 100 units/ml SC SCH ×4 (08:03→22:00)
--- NOTE | 2017-12-26 08:24 | CARD ---
APPROVED REPORT EKG Measurement Heart [id number] 188P [id number] <Conclusion> Sinus bradycardia Left anterior fascicular block Left ventricular hypertrophy with QRS widening and repolarization abnormality Anteroseptal infarct, age undetermined St changes suggestive of Myocardial ischemia V2 to V6 Abnormal ECG
--- NOTE | 2017-12-26 08:25 | RAD ---
HISTORY: Chest pain. COMPARISON: 11/28/2017. FINDINGS: LUNGS: No active pulmonary disease. PLEURA: No significant pleural effusion identified, no pneumothorax apparent. CARDIOVASCULAR: No radiographic findings to suggest acute or significant cardiovascular disease. OSSEOUS STRUCTURES: No significant abnormalities. VISUALIZED UPPER ABDOMEN: Normal. OTHER FINDINGS: None. IMPRESSION: No active disease. No significant interval change compared to the prior examination(s).
--- NOTE | 2017-12-26 08:30 | CARD ---
APPROVED REPORT EKG Measurement Heart [id number] [place] 144P [id number] <Conclusion> Sinus tachycardia with fusion complexes Left anterior fascicular block Left ventricular hypertrophy with QRS widening and repolarization abnormality Abnormal ECG
[2017-12-26] MEDS: Metoprolol Succinate 25 mg XL Tab PO SCH (08:43)
[2017-12-26] MEDS: Tiotropium 18 mcg Cap For Inhalation INH SCH (08:43)
[2017-12-26] MEDS: Digoxin 125 mcg (0.125 mg) Tab PO SCH (08:43)
--- NOTE | 2017-12-26 08:48 | CP.PCM.PN ---
Subjective - Date & Time of Evaluation Date of Evaluation: 12/26/17 Time of Evaluation: 08:45 - Subjective Subjective: patient feeling well this morning states he has more pain in his back than in his chest when asked more about chest pain, patient focused on upper back pain troponin positive this morning no new acute EKG changes full AC with lovenox hd stable nad Objective - Vital Signs/Intake and Output Vital Signs (last 24 hours): Temp Pulse Resp BP Pulse Ox 97.7 F 57 L 20 117/64 99 12/26/17 08:00 12/26/17 08:00 12/26/17 08:00 12/26/17 08:00 12/26/17 08:00 - Medications Medications: Current Medications Albuterol/Ipratropium (Duoneb 3 Mg/0.5 Mg (3 Ml) Ud) 3 ml IH RQ6 PRN PRN Reason: Wheezing Aspirin (Ecotrin) 81 mg PO DAILY [facility] Atorvastatin Calcium (Lipitor) 20 mg PO DAILY [facility] Clopidogrel Bisulfate (Plavix) 75 mg PO DAILY [facility] Digoxin (Digoxin) 0.125 mg PO DAILY [facility] Enoxaparin Sodium (Lovenox) 60 mg SC Q12 [facility] PRN Reason: Protocol Home Med (Ropinirole Hcl [Requip]) 0.5 mg PO Q8 [facility] Insulin Human Regular (Humulin R) 0 units SC ACHS [facility] PRN Reason: Protocol Last Admin: 12/26/17 08:03 Dose: Not Given Metoprolol Succinate (Toprol Xl) 25 mg PO DAILY [facility] Sertraline HCl (Zoloft) 50 mg PO DAILY [facility] Tamsulosin HCl (Flomax) 0.4 mg PO DAILY [facility] Tiotropium [place] (Spiriva) 18 mcg INH DAILY [facility] Tramadol HCl (Ultram) 50 mg PO Q6 PRN PRN Reason: For pain scale 4-10 - Labs Labs: 12/25/17 20:43 12/26/17 05:00 PT 11.9 Seconds (9.8-13.1) 12/25/17 20:43 INR 1.1 (0.9-1.2) 12/25/17 20:43 APTT 33.0 Seconds (25.6-37.1) 12/25/17 20:43 - Constitutional Appears: Non-toxic, No Acute Distress - Head Exam Head Exam: ATRAUMATIC, NORMOCEPHALIC - Eye Exam Eye Exam: EOMI, Normal appearance, PERRL Pupil Exam: NORMAL ACCOMODATION - ENT Exam ENT Exam: Mucous Membranes Moist, Normal Oropharynx - Respiratory Exam Respiratory Exam: Clear to Ausculation Bilateral, NORMAL BREATHING PATTERN - Cardiovascular Exam Cardiovascular Exam: RRR, +S1, +S2 - GI/Abdominal Exam GI & Abdominal Exam: Soft, Normal Bowel Sounds. absent: Mass, Organomegaly - Extremities Exam Extremities Exam: Normal Capillary Refill. absent: Calf Tenderness - Back Exam Back Exam: absent: CVA tenderness (L), CVA tenderness (R), paraspinal tenderness , rash noted - Neurological Exam Neurological Exam: Alert, Awake, Oriented x3 - Psychiatric Exam Psychiatric exam: Normal Affect, Normal Mood - Skin Skin Exam: Dry, Warm Assessment and Plan - Assessment and Plan (Free Text) Plan: 72 years old male with hx of COPD, DM, HTN. CAD s/p PCI X3, fefusing cardiac cath earlier this year, comes with one hour of chest pain on exertion, radiating to the right upper back and associated with SOB. He took 2 Aspirins at home without pain relief. No coughing nor palpitation, no fever nor dizziness. hest Pain - Consult Dr House cardiology - repeat tn this AM 0.1420, trending enzymes - Serial EKGs- patient has old T wave inversions in 1 avl; however this morning , new t wave flattening v2 and deep t wave inversions in v3-6 suggesting ischemia. - discussed with cardiology, Dr. House, and patient currently is refusing catheterization. If patient agrees, will consult with Dr. Fajardo. - will anticoagulate with full dose lovenox - patient refusing catheterization at present. #. CAD - ASA/Plavix/lipitor/Metoprolol #. DM II with Hyperglycemia - Regular Insulin sliding scale according to accucheck #. Hypokalemia - Replace with KCL - Follow electrolytes #. COPD - Spiriva - Albuterol #. Anxiety/depression - Zoloft - #. restless leg syndrome - Requip #. DVT prophylaxis with Lovenox #. Code Status: Full
[2017-12-26] MEDS ORDERED: Enoxaparin 40 mg Syringe SC SCH (09:00)
--- NOTE | 2017-12-26 09:15 | CP.PCM.CON ---
History of Present Illness - History of Present Illness History of Present Illness: THE PATIENT IS A 72 YEAR OLD MALE WHO IS WELL KNOWN TO ME FROM PAST [facility] ADMISSIONS AND MY OFFICE PRACTICE. HE HAS A HISTORY OF CAD, HYPERTENSION, COPD FROM CIGARETTE SMOKING WHICH HE CONTINUES TO DO, HYPERLIPIDEMIA, MS, OLD CVA AND TYPE 2 DM. HE HAD CHEST PAIN ABOUT 5 YEARS AGO AND WENT TO THE ER AND A [facility] WAS CALLED AND HE WENT TO [facility] AND HAD AN EMERGENCY CARDIAC CATH FOLLOWED BY STENT INSERTIONS. HE DID WELL AND HAD A LVEF OF ~ 40% . HE CAME IN EARLI[place] THIS YEAR FOR CHEST PAIN AGAIN WITH ELEVATED TROPONINS AND REFUSED TO CONSIDER A CADIAC CATH FOR POSSIBLE STENT INSERTIONS AND HE WENT ON TO HAVE SIGNIFICANT LV DAMAGE WITH A LVEF OF ~ 10% THAT IMPROVED SOMEWHAT SINCE. HE DECLINED TO CONSIDER A DEFIBRILLATOR. HE NOW HAD CHEST PAIN YESTERDAY AND EVENING AND WENT TO THE ER AND WAS ADMITTED. HIS FIRST TROPONIN WAS NORMAL BUT THE SECOND WAS MILDLY ELEVATED SO CARDIOLOGY WAS ASKED TO SEE HIM. HE IS ESSENTIALLY PAIN FREE NOW. A CARDIAC CATH WAS RECOMMENDED AGAIN THIS TIME TO SEE IF HE NEEDS A STENT BUT HE DECLINED AGAIN DESPITE BEING TOLD OF POSSIBLE SERIOUS CARDIAC DAMAGE OR 3EVEN . Past Patient History - Infectious Disease Hx of Infectious Diseases: None - Tetanus Immunizations Tetanus Immunization: Unknown - Past Medical History & Family History Past Medical History?: Yes - Past Social History Smoking Status: Light Smoker < 10 Cigarettes Daily - CARDIAC Hx Cardia Arrhythmia: Yes Hx Congestive Heart Failure: Yes Hx Hypercholesterolemia: Yes Hx Hypertension: Yes - PULMONARY Hx Asthma: Yes Hx Bronchitis: No Hx Chronic Obstructive Pulmonary Disease (COPD): Yes Hx Emphysema: Yes Hx Pneumonia: Yes - NEUROLOGICAL Hx Multiple Sclerosis: Yes Hx Transient Ischemic Attacks (TIA): Yes - HEENT Hx HEENT Problems: No - RENAL Hx Chronic Kidney Disease: No - ENDOCRINE/METABOLIC Hx Endocrine Disorders: Yes Hx Diabetes Mellitus Type 2: Yes - HEMATOLOGICAL/ONCOLOGICAL Hx Anemia: Yes Hx Human Immunodeficiency Virus (HIV): No - INTEGUMENTARY Hx Dermatological Problems: No - MUSCULOSKELETAL/RHEUMATOLOGICAL Hx Falls: Yes - GASTROINTESTINAL Hx Gastrointestinal Disorders: No - GENITOURINARY/GYNECOLOGICAL Hx Genitourinary Disorders: No - PSYCHIATRIC Hx Substance Use: No - SURGICAL HISTORY Hx Cholecystectomy: Yes Hx Coronary Artery Bypass Graft: No Hx Coronary Stent: Yes (x3) - ANESTHESIA Hx Anesthesia: Yes Hx Anesthesia Reactions: No Hx Malignant Hyperthermia: No Meds Allergies/Adverse Reactions: Allergies Allergy/AdvReac Type Severity Reaction Status Date / Time ampicillin Allergy RASH Verified 12/25/17 19:47 codeine AdvReac HEADACHE Verified 12/25/17 19:47 - Medications Medications: Current Medications Albuterol/Ipratropium (Duoneb 3 Mg/0.5 Mg (3 Ml) Ud) 3 ml IH RQ6 PRN PRN Reason: Wheezing Aspirin (Ecotrin) 81 mg PO DAILY [facility] Last Admin: 12/26/17 08:43 Dose: 81 mg Atorvastatin Calcium (Lipitor) 20 mg PO DAILY [facility] Last Admin: 12/26/17 08:42 Dose: 20 mg Clopidogrel Bisulfate (Plavix) 75 mg PO DAILY [facility] Last Admin: 12/26/17 08:46 Dose: 75 mg Digoxin (Digoxin) 0.125 mg PO DAILY [facility] Last Admin: 12/26/17 08:43 Dose: 0.125 mg Enoxaparin Sodium (Lovenox) 60 mg SC Q12 [facility] PRN Reason: Protocol Home Med (Ropinirole Hcl [Requip]) 0.5 mg PO Q8 [facility] Insulin Human Regular (Humulin R) 0 units SC ACHS [facility] PRN Reason: Protocol Last Admin: 12/26/17 08:03 Dose: Not Given Metoprolol Succinate (Toprol Xl) 25 mg PO DAILY [facility] Last Admin: 12/26/17 08:43 Dose: Not Given Sertraline HCl (Zoloft) 50 mg PO DAILY [facility] Last Admin: 12/26/17 08:47 Dose: 50 mg Tamsulosin HCl (Flomax) 0.4 mg PO DAILY [facility] Last Admin: 12/26/17 08:42 Dose: 0.4 mg Tiotropium [place] (Spiriva) 18 mcg INH DAILY [facility] Last Admin: 12/26/17 08:43 Dose: 18 mcg Tramadol HCl (Ultram) 50 mg PO Q6 PRN PRN Reason: For pain scale 4-10 Last Admin: 12/26/17 08:51 Dose: 50 mg Physical Exam - Respiratory Exam Respiratory Exam: Clear to Auscultation Bilateral - Cardiovascular Exam Cardiovascular Exam: REGULAR RHYTHM, +S1, +S2 - Extremities Exam Extremities exam: Positive for: normal inspection - Additional Findings Additional findings: EKG SINUS RHYTHM, T WAVE INVERSION IN I, L, V2 TO V6(OLD FINDINGS) TROPONIN #1 NORMAL TROPONIN #2 0.14 CXR NAD Results - Vital Signs Recent Vital Signs: Last Vital Signs Temp 97.7 F 12/26/17 08:00 Pulse 57 L 12/26/17 08:43 Resp 20 12/26/17 08:00 BP 117/64 12/26/17 08:43 Pulse Ox 99 12/26/17 08:00 - Labs Result Diagrams: 12/25/17 20:43 12/26/17 05:00 Labs: Laboratory Results - last 24 hr 12/25/17 12/25/17 12/25/17 20:43 20:43 20:43 WBC 7.4 RBC 4.00 L Hgb 12.7 Hct 37.9 MCV 94.9 H MCH 31.8 H MCHC 33.5 RDW 15.3 H Plt Count 195 D MPV 8.6 Neut % (Auto) 64.1 Lymph % (Auto) 24.2 [place] % (Auto) 7.1 Eos % (Auto) 3.4 Baso % (Auto) 1.2 Neut # (Auto) 4.7 Lymph # (Auto) 1.8 Bradford # (Auto) 0.5 Eos # (Auto) 0.2 Baso # (Auto) 0.1 PT INR APTT Sodium 136 Potassium 3.5 L Chloride 101 Carbon Dioxide 26 Anion Gap 13 BUN 11 Creatinine 0.8 Est GFR ( Amer) > 60 Est GFR (Non-Af Amer) > 60 POC Glucose (mg/dL) Random Glucose 274 H Calcium 9.1 Phosphorus 3.2 Magnesium 1.6 Total Bilirubin 0.7 AST 23 ALT 23 Alkaline Phosphatase 68 Troponin I 0.0890 NT-Pro-B Natriuret Pep 3420 H Total Protein 7.0 Albumin 4.0 Globulin 3.1 Albumin/Globulin Ratio 1.3 Triglycerides Cholesterol LDL Cholesterol Direct HDL Cholesterol Digoxin 0.6 L Urine Opiates Screen Urine Methadone Screen Ur Barbiturates Screen Ur Phencyclidine Scrn Ur Amphetamines Screen U Benzodiazepines Scrn U Oth Cocaine Metabols U Cannabinoids Screen 12/25/17 12/25/17 12/26/17 20:43 21:00 05:00 WBC RBC Hgb Hct MCV MCH MCHC RDW Plt Count MPV Neut % (Auto) Lymph % (Auto) [place] % (Auto) Eos % (Auto) Baso % (Auto) Neut # (Auto) Lymph # (Auto) Bradford # (Auto) Eos # (Auto) Baso # (Auto) PT 11.9 INR 1.1 APTT 33.0 Sodium 139 Potassium 4.2 Chloride 105 Carbon Dioxide 29 Anion Gap 9 L BUN 10 Creatinine 0.7 L Est GFR ( Amer) > 60 Est GFR (Non-Af Amer) > 60 POC Glucose (mg/dL) Random Glucose 132 H Calcium 9.2 Phosphorus Magnesium Total Bilirubin AST ALT Alkaline Phosphatase Troponin I 0.1420 H* NT-Pro-B Natriuret Pep Total Protein Albumin Globulin Albumin/Globulin Ratio Triglycerides 154 H Cholesterol 135 LDL Cholesterol Direct 87 HDL Cholesterol 18 L Digoxin Urine Opiates Screen Negative Urine Methadone Screen Negative Ur Barbiturates Screen Negative Ur Phencyclidine Scrn Negative Ur Amphetamines Screen Negative U Benzodiazepines Scrn Negative U Oth Cocaine Metabols Negative U Cannabinoids Screen Negative 12/26/17 05:41 WBC RBC Hgb Hct MCV MCH MCHC RDW Plt Count MPV Neut % (Auto) Lymph % (Auto) [place] % (Auto) Eos % (Auto) Baso % (Auto) Neut # (Auto) Lymph # (Auto) Bradford # (Auto) Eos # (Auto) Baso # (Auto) PT INR APTT Sodium Potassium Chloride Carbon Dioxide Anion Gap BUN Creatinine Est GFR ( Amer) Est GFR (Non-Af Amer) POC Glucose (mg/dL) 122 H Random Glucose Calcium Phosphorus Magnesium Total Bilirubin AST ALT Alkaline Phosphatase Troponin I NT-Pro-B Natriuret Pep Total Protein Albumin Globulin Albumin/Globulin Ratio Triglycerides Cholesterol LDL Cholesterol Direct HDL Cholesterol Digoxin Urine Opiates Screen Urine Methadone Screen Ur Barbiturates Screen Ur Phencyclidine Scrn Ur Amphetamines Screen U Benzodiazepines Scrn U Oth Cocaine Metabols U Cannabinoids Screen Assessment & Plan - Assessment and Plan (Free Text) Assessment: ACUTE NSTEMI HYPERTENSION HYPERLIPIDEMIA Plan: CONTINUE O2, METOPROLOL, ATORVASTATIN, ASPIRIN, CLOPIDOGREL, LOVENOX ECHOCARDIOGRAM THE PATIENT DECLINED AN URGENT CARDIAC CATH FOR POSSIBLE PCI
[2017-12-26] MEDS: Enoxaparin 60 mg Syringe SC SCH ×2 (11:15→23:24)
[2017-12-26] MEDS ORDERED: Perflutren Lipid Microsphere 1.5 ML SUS IV ONE (12:10)
--- NOTE | 2017-12-26 13:40 | CARD ---
APPROVED REPORT EXAM: Two-dimensional and M-mode echocardiogram with Doppler, color Doppler with contrast. Other Information Quality : GoodRhythm : NSR INDICATION Non STEMI Echo Enhancing Agent Indication: Endocardial border delineation,Thrombus 2D DIMENSIONS IVSd0.77 (0.7-1.1cm)LVDd6.39 (3.9-5.9cm) PWd1.04 (0.7-1.1cm)IVSs0.93 (0.8-1.2cm) LVDs6.67 (2.5-4.0cm)FS (%) 4.4 % PWs0.60 (0.8-1.2cm) M-Mode DIMENSIONS IVSd0.63 (0.7-1.1cm)LVDd8.90 (4.0-5.6cm) PWd0.76 (0.7-1.1cm)IVSs0.50 cm FS (%) 11 %LVDs7.94 (2.0-3.8cm) PWs1.09 cm Mitral Valve MV E Yorvewpa81.9cm/sMV DECEL [id number] A Pnaxiqod21.9cm/s MV [id number]/A ratio0.7MVA (PHT)1.72cm2 TDI Lateral E' Peak V4.56cm/sMedial E' Peak V11.81cm/sE/Lateral E'10.5 E/Medial E'4.1 Tricuspid Valve TR Peak [id number]/sRAP [id number] Peak Gr.20mmHg [id number] LEFT VENTRICLE The Left Ventricle is severely dilated. There is normal left ventricular wall thickness. The systolic function is severely impaired. The LVEF is severly impared with an ejection fraction about 20% There is severe global akinesia and some areas of hypokinesia ( some movements noticed on the lateral wall of the left ventricle) of the left ventricle. The left ventricular diastolic function is normal. No left ventricle thrombus noted on this study. There is no ventricular septal defect visualized. There is no left ventricular aneurysm. There is no mass noted in the left ventricle. RIGHT VENTRICLE The right ventricle is normal size. There is normal right ventricular wall thickness. The right ventricular systolic function is normal. ATRIA The left atrium is mildly dilated. The right atrium size is normal. The interatrial septum is intact with no evidence for an atrial septal defect. AORTIC VALVE The aortic valve is normal in structure. No aortic regurgitation is present. There is no aortic valvular stenosis. There is no aortic valvular vegetation. MITRAL VALVE The mitral valve is normal in structure. There is no evidence of mitral valve prolapse. There is no mitral valve stenosis. Mitral regurgitation is mild. TRICUSPID VALVE The tricuspid valve is normal in structure. There is mild tricuspid regurgitation. There is no tricuspid valve prolapse or vegetation. There is no tricuspid valve stenosis. PULMONIC VALVE The pulmonary valve is normal in structure. There is no pulmonic valvular regurgitation. There is no pulmonic valvular stenosis. GREAT VESSELS The aortic root is normal in size. The IVC is normal in size and collapses >50% with inspiration. PERICARDIAL EFFUSION The pericardium appears normal. <Conclusion> The Left Ventricle is severely dilated. There is normal left ventricular wall thickness. The systolic function is severely impaired. The LVEF is severly impared with an ejection fraction about 20% Mitral regurgitation is mild. There is mild tricuspid regurgitation. The left atrium is mildly dilated. There is severe global akinesia and some areas of hypokinesia ( some movements noticed on the lateral wall of the left ventricle) of the left ventricle.
--- NOTE | 2017-12-27 09:43 | CP.PCM.PN ---
Subjective - Date & Time of Evaluation Date of Evaluation: 12/27/17 Time of Evaluation: 09:30 - Subjective Subjective: NO CHEST PAIN BREATHING BETTER Objective - Vital Signs/Intake and Output Vital Signs (last 24 hours): Temp Pulse Resp BP Pulse Ox 98.2 F 56 L 20 110/63 100 12/27/17 08:16 12/27/17 08:16 12/27/17 08:16 12/27/17 08:16 12/27/17 08:16 - Medications Medications: Current Medications Albuterol/Ipratropium (Duoneb 3 Mg/0.5 Mg (3 Ml) Ud) 3 ml IH RQ6 PRN PRN Reason: Wheezing Aspirin (Ecotrin) 81 mg PO DAILY [facility] Last Admin: 12/26/17 08:43 Dose: 81 mg Atorvastatin Calcium (Lipitor) 20 mg PO DAILY [facility] Last Admin: 12/26/17 08:42 Dose: 20 mg Clopidogrel Bisulfate (Plavix) 75 mg PO DAILY [facility] Last Admin: 12/26/17 08:46 Dose: 75 mg Digoxin (Digoxin) 0.125 mg PO DAILY [facility] Last Admin: 12/26/17 08:43 Dose: 0.125 mg Enoxaparin Sodium (Lovenox) 60 mg SC Q12 [facility] PRN Reason: Protocol Last Admin: 12/26/17 23:24 Dose: 60 mg Home Med (Ropinirole Hcl [Requip]) 0.5 mg PO Q8 [facility] Insulin Human Regular (Humulin R) 0 units SC ACHS [facility] PRN Reason: Protocol Last Admin: 12/26/17 22:00 Dose: Not Given Losartan Potassium (Cozaar) 25 mg PO DAILY [facility] Metoprolol Succinate (Toprol Xl) 25 mg PO DAILY [facility] Last Admin: 12/26/17 08:43 Dose: Not Given Sertraline HCl (Zoloft) 50 mg PO DAILY [facility] Last Admin: 12/26/17 08:47 Dose: 50 mg Tamsulosin HCl (Flomax) 0.4 mg PO DAILY [facility] Last Admin: 12/26/17 08:42 Dose: 0.4 mg Tiotropium [place] (Spiriva) 18 mcg INH DAILY [facility] Last Admin: 12/26/17 08:43 Dose: 18 mcg Tramadol HCl (Ultram) 50 mg PO Q6 PRN PRN Reason: For pain scale 4-10 Last Admin: 12/26/17 18:57 Dose: 50 mg - Labs Labs: 12/25/17 20:43 12/26/17 05:00 PT 11.9 Seconds (9.8-13.1) 12/25/17 20:43 INR 1.1 (0.9-1.2) 12/25/17 20:43 APTT 33.0 Seconds (25.6-37.1) 12/25/17 20:43 - Respiratory Exam Respiratory Exam: Clear to Ausculation Bilateral - Cardiovascular Exam Cardiovascular Exam: REGULAR RHYTHM, +S1, +S2 - Extremities Exam Extremities Exam: Normal Inspection - Additional Findings Additional findings: ECHO LVE, LVEF OF ~ 20%, LAE Assessment and Plan - Assessment and Plan (Free Text) Assessment: CAD WITH 2 OLD NJ'S AND NOW WITH NEW NSTEMI HYPERTENSION HYPERLIPIDEMIA TYPE 2 DM Plan: CONTINUE O2, ASPIRIN, CLOPIDOGREL, METOPROLOL, LOSARTAN, ATORVASTATIN, DIGOXIN THE PATIENT IS STILL REFUSING A CARDIAC CATH OR DEFIBRILLATOR
[2017-12-27 10:09] LABS: HEMOGLOBIN 12.4 g/dL (12.0-18.0); MEAN CELL VOLUME 95.2 fl (80.0-94.0); MEAN CORPUSCULAR HEMOGLOBIN 31.9 pg (27.0-31.0); MEAN CORPUSCULAR HGB CONC 33.5 g/dL (33.0-37.0); RBC 3.9 Mil/uL (4.40-5.90); WHITE BLOOD COUNT 6.7 K/uL (4.8-10.8)
[2017-12-27 10:26] LABS: BLOOD UREA NITROGEN 12 mg/dl (9-20); GFR AFRICAN-AMERICAN > 60; GFR NON-AFRICAN AMERICAN > 60
--- NOTE | 2017-12-27 10:59 | CP.PCM.PN ---
Subjective - Date & Time of Evaluation Date of Evaluation: 12/27/17 Time of Evaluation: 09:00 - Subjective Subjective: Pt denies CP no SOB Troponin trended down still refusing Cardiac cath or any other Cardiac work up no abd pain no N/V Objective - Vital Signs/Intake and Output Vital Signs (last 24 hours): Temp Pulse Resp BP Pulse Ox 98.2 F 56 L 20 110/63 100 12/27/17 08:16 12/27/17 10:20 12/27/17 08:16 12/27/17 10:20 12/27/17 08:16 - Medications Medications: Current Medications Albuterol/Ipratropium (Duoneb 3 Mg/0.5 Mg (3 Ml) Ud) 3 ml IH RQ6 PRN PRN Reason: Wheezing Aspirin (Ecotrin) 81 mg PO DAILY [facility] Last Admin: 12/26/17 08:43 Dose: 81 mg Atorvastatin Calcium (Lipitor) 20 mg PO DAILY [facility] Last Admin: 12/26/17 08:42 Dose: 20 mg Clopidogrel Bisulfate (Plavix) 75 mg PO DAILY [facility] Last Admin: 12/26/17 08:46 Dose: 75 mg Digoxin (Digoxin) 0.125 mg PO DAILY [facility] Last Admin: 12/26/17 08:43 Dose: 0.125 mg Enoxaparin Sodium (Lovenox) 60 mg SC Q12 [facility] PRN Reason: Protocol Last Admin: 12/26/17 23:24 Dose: 60 mg Home Med (Ropinirole Hcl [Requip]) 0.5 mg PO Q8 [facility] Insulin Human Regular (Humulin R) 0 units SC ACHS [facility] PRN Reason: Protocol Last Admin: 12/26/17 22:00 Dose: Not Given Losartan Potassium (Cozaar) 25 mg PO DAILY [facility] Last Admin: 12/27/17 10:20 Dose: 25 mg Metoprolol Succinate (Toprol Xl) 25 mg PO DAILY [facility] Last Admin: 12/26/17 08:43 Dose: Not Given Sertraline HCl (Zoloft) 50 mg PO DAILY [facility] Last Admin: 12/26/17 08:47 Dose: 50 mg Tamsulosin HCl (Flomax) 0.4 mg PO DAILY [facility] Last Admin: 12/26/17 08:42 Dose: 0.4 mg Tiotropium [place] (Spiriva) 18 mcg INH DAILY [facility] Last Admin: 12/26/17 08:43 Dose: 18 mcg Tramadol HCl (Ultram) 50 mg PO Q6 PRN PRN Reason: For pain scale 4-10 Last Admin: 12/27/17 10:26 Dose: 50 mg - Labs Labs: 12/27/17 10:12 12/27/17 10:12 PT 11.9 Seconds (9.8-13.1) 12/25/17 20:43 INR 1.1 (0.9-1.2) 12/25/17 20:43 APTT 33.0 Seconds (25.6-37.1) 12/25/17 20:43 - Constitutional Appears: Non-toxic, Chronically Ill - Head Exam Head Exam: NORMAL INSPECTION, NORMOCEPHALIC - Eye Exam Eye Exam: EOMI, Normal appearance Pupil Exam: NORMAL ACCOMODATION - ENT Exam ENT Exam: Mucous Membranes Moist, Normal External Ear Exam - Neck Exam Neck Exam: Full ROM. absent: Meningismus - Respiratory Exam Respiratory Exam: NORMAL BREATHING PATTERN. absent: Respiratory Distress - Cardiovascular Exam Cardiovascular Exam: REGULAR RHYTHM, +S1, +S2 - GI/Abdominal Exam GI & Abdominal Exam: Soft, Normal Bowel Sounds. absent: Tenderness - Extremities Exam Extremities Exam: Normal Capillary Refill. absent: Calf Tenderness, Pedal Edema - Back Exam Back Exam: absent: CVA tenderness (L), CVA tenderness (R) - Neurological Exam Neurological Exam: Alert, Awake, Oriented x3 - Psychiatric Exam Psychiatric exam: Normal Affect, Normal Mood - Skin Skin Exam: Dry, Normal Color, Warm Assessment and Plan - Assessment and Plan (Free Text) Assessment: 72 years old male with hx of COPD, DM, HTN. CAD s/p PCI X3, refused cardiac cath earlier this year, comes with one hour of chest pain on exertion, radiating to the right upper back and associated with SOB. He took 2 Aspirins at home without pain relief. No coughing nor palpitation, no fever nor dizziness. Troponin x 1 positive Echo :EF 20%, Akinesia, Hypokinesia 1. NSTEMI - 2nd Troponin positive at 0.14 - Serial EKGs- patient has old T wave inversions I , AVL, new t wave flattening v2 and deep t wave inversions in v3-6 suggesting ischemia. - Pt refusing Cardiac cath despite explanation of benefits/risks - cont to anticoagulate with full dose lovenox - cont ASA, Plavix, Statin and BB - add Losartan 2. DM II - Regular Insulin sliding scale according to accucheck 3. Hypokalemia - Replace with KCL - Follow electrolytes 4. COPD, stable - cont Duoneb tx and Spiriva 5. Cardiomyopathy , prob ischemic refused any further cardiac work up 6. Anxiety/depression -cont Zoloft - 7. Restless leg syndrome -cont Requip #. 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
[2017-12-27] MEDS: Enoxaparin 60 mg Syringe SC SCH ×2 (11:00→21:40)
[2017-12-27] MEDS: Tiotropium 18 mcg Cap For Inhalation INH SCH (11:00)
[2017-12-27] MEDS: Insulin Regular 100 units/ml SC SCH ×4 (12:00→23:00)
[2017-12-27] MEDS: Digoxin 125 mcg (0.125 mg) Tab PO SCH (12:05)
[2017-12-27] MEDS: Metoprolol Succinate 25 mg XL Tab PO SCH (12:07)
[2017-12-28 06:13] LABS: HEMOGLOBIN 12.4 g/dL (12.0-18.0); MEAN CELL VOLUME 93.5 fl (80.0-94.0); MEAN CORPUSCULAR HEMOGLOBIN 32.1 pg (27.0-31.0); MEAN CORPUSCULAR HGB CONC 34.3 g/dL (33.0-37.0); RBC 3.86 Mil/uL (4.40-5.90); RED CELL DISTRIBUTION WIDTH 14.6 % (11.5-14.5); WHITE BLOOD COUNT 6.2 K/uL (4.8-10.8)
[2017-12-28 06:22] LABS: BLOOD UREA NITROGEN 15 mg/dl (9-20); CALCIUM 9.2 mg/dL (8.4-10.2); GFR AFRICAN-AMERICAN > 60; GFR NON-AFRICAN AMERICAN > 60
[2017-12-28] MEDS: Digoxin 125 mcg (0.125 mg) Tab PO SCH (08:32)
[2017-12-28] MEDS: Metoprolol Succinate 25 mg XL Tab PO SCH (08:35)
[2017-12-28] MEDS: Tiotropium 18 mcg Cap For Inhalation INH SCH (08:35)
[2017-12-28] MEDS: Enoxaparin 60 mg Syringe SC SCH ×2 (08:35→21:41)
--- NOTE | 2017-12-28 11:13 | CP.PCM.PN ---
Subjective - Date & Time of Evaluation Date of Evaluation: 12/28/17 Time of Evaluation: 11:00 - Subjective Subjective: Pt complains of feeling weak SOB when he walks to the bathroom denies CP at present PIZARRO no abd pain Objective - Vital Signs/Intake and Output Vital Signs (last 24 hours): Temp Pulse Resp BP Pulse Ox 98 F 61 20 114/66 99 12/28/17 08:00 12/28/17 08:35 12/28/17 08:00 12/28/17 08:35 12/28/17 08:00 - Medications Medications: Current Medications Albuterol/Ipratropium (Duoneb 3 Mg/0.5 Mg (3 Ml) Ud) 3 ml IH RQ6 PRN PRN Reason: Wheezing Aspirin (Ecotrin) 81 mg PO DAILY [facility] Last Admin: 12/28/17 08:34 Dose: 81 mg Atorvastatin Calcium (Lipitor) 20 mg PO DAILY [facility] Last Admin: 12/28/17 08:35 Dose: 20 mg Clopidogrel Bisulfate (Plavix) 75 mg PO DAILY [facility] Last Admin: 12/28/17 08:35 Dose: 75 mg Digoxin (Digoxin) 0.125 mg PO DAILY [facility] Last Admin: 12/28/17 08:32 Dose: 0.125 mg Enoxaparin Sodium (Lovenox) 60 mg SC Q12 [facility] PRN Reason: Protocol Last Admin: 12/28/17 08:35 Dose: 60 mg Home Med (Ropinirole Hcl [Requip]) 0.5 mg PO Q8 [facility] Insulin Human Regular (Humulin R) 0 units SC ACHS [facility] PRN Reason: Protocol Last Admin: 12/27/17 23:00 Dose: Not Given Losartan Potassium (Cozaar) 25 mg PO DAILY [facility] Last Admin: 12/28/17 08:32 Dose: 25 mg Metoprolol Succinate (Toprol Xl) 25 mg PO DAILY [facility] Last Admin: 12/28/17 08:35 Dose: 25 mg Sertraline HCl (Zoloft) 50 mg PO DAILY [facility] Last Admin: 12/28/17 08:36 Dose: 50 mg Tamsulosin HCl (Flomax) 0.4 mg PO DAILY [facility] Last Admin: 12/28/17 08:34 Dose: 0.4 mg Tiotropium [place] (Spiriva) 18 mcg INH DAILY [facility] Last Admin: 12/28/17 08:35 Dose: 18 mcg Tramadol HCl (Ultram) 50 mg PO Q6 PRN PRN Reason: For pain scale 4-10 Last Admin: 12/28/17 08:40 Dose: 50 mg - Labs Labs: 12/28/17 04:45 12/28/17 04:45 PT 11.9 Seconds (9.8-13.1) 12/25/17 20:43 INR 1.1 (0.9-1.2) 12/25/17 20:43 APTT 33.0 Seconds (25.6-37.1) 12/25/17 20:43 - Constitutional Appears: Non-toxic, Chronically Ill - Head Exam Head Exam: NORMAL INSPECTION, NORMOCEPHALIC - Eye Exam Eye Exam: EOMI, Normal appearance Pupil Exam: NORMAL ACCOMODATION - ENT Exam ENT Exam: Mucous Membranes Moist, Normal External Ear Exam - Neck Exam Neck Exam: Full ROM. absent: Meningismus - Respiratory Exam Respiratory Exam: NORMAL BREATHING PATTERN. absent: Respiratory Distress - Cardiovascular Exam Cardiovascular Exam: REGULAR RHYTHM, +S1, +S2 - GI/Abdominal Exam GI & Abdominal Exam: Soft, Normal Bowel Sounds. absent: Tenderness - Extremities Exam Extremities Exam: Normal Capillary Refill. absent: Calf Tenderness, Pedal Edema - Back Exam Back Exam: absent: CVA tenderness (L), CVA tenderness (R) - Neurological Exam Neurological Exam: Alert, Awake, Oriented x3 - Psychiatric Exam Psychiatric exam: Normal Affect, Normal Mood - Skin Skin Exam: Dry, Normal Color, Warm Assessment and Plan - Assessment and Plan (Free Text) Assessment: 72 years old male with hx of COPD, DM, HTN. CAD s/p PCI X3, refused cardiac cath earlier this year, comes with one hour of chest pain on exertion, radiating to the right upper back and associated with SOB. He took 2 Aspirins at home without pain relief. No coughing nor palpitation, no fever nor dizziness. Troponin x 1 positive Echo :EF 20%, Akinesia, Hypokinesia 1. NSTEMI - 2nd Troponin positive at 0.14 - Serial EKGs- patient has old T wave inversions I , AVL, new t wave flattening v2 and deep t wave inversions in v3-6 suggesting ischemia. - Pt refusing Cardiac cath despite explanation of benefits/risks - cont Therapeutic dose of LOvenox - cont ASA, Plavix, Statin and BB - added Losartan 2. DM II - Regular Insulin sliding scale according to accucheck 3. Hypokalemia - Replaced with KCL - Follow electrolytes 4. COPD, stable - cont Duoneb tx and Spiriva 5. Cardiomyopathy , prob ischemic refused any further cardiac work up 6. Anxiety/depression -cont Zoloft - 7. Deconditioning - pt feeling weak -resides in a 3rd floor walk up apartment - Physical Therapy consult 8. Underweight BMI : 18.5 cont Glucerna #. DVT prophylaxis pt is on therapeutic dose of Lovenox
[2017-12-28] MEDS: Insulin Regular 100 units/ml SC SCH ×3 (11:58→22:30)
--- NOTE | 2017-12-28 12:18 | PQF ---
PROVIDER RESPONSE TEXT: Underweight, BMI 18.4 -cont Glucerna REVIEWER QUERY TEXT: Nutritional Deficiency Clarification There are clinical indicators and dietary orders noted in the Medical Record regarding nutritional st atus. Please provide a nutritional diagnosis if able to further specify. The patient's Clinical Indicators include: EMR and the pension agent note has the patient listed as 5' 9", weighing 125 pounds with a BMI of 18.4. C lassification : Underweight ( < 18.5). Recommending Glucerna. Query created by: Leslee Padilla on 12/27/2017 1:08 PM Electronically signed by: Jayna Sher MD 12/28/2017 12:15 PM
[2017-12-29] MEDS: Insulin Regular 100 units/ml SC SCH ×4 (08:22→22:20)
[2017-12-29] MEDS: Tiotropium 18 mcg Cap For Inhalation INH SCH (09:14)
[2017-12-29] MEDS: Enoxaparin 60 mg Syringe SC SCH (09:15)
[2017-12-29] MEDS: Metoprolol Succinate 25 mg XL Tab PO SCH (09:18)
[2017-12-29] MEDS: Digoxin 125 mcg (0.125 mg) Tab PO SCH (10:02)
--- NOTE | 2017-12-29 11:03 | CP.PCM.PN ---
Subjective - Date & Time of Evaluation Date of Evaluation: 12/29/17 Time of Evaluation: 10:00 - Subjective Subjective: Still feels weak no CP SOB on exertion no cough no fever no abd pain Objective - Vital Signs/Intake and Output Vital Signs (last 24 hours): Temp Pulse Resp BP Pulse Ox 98 F 58 L 18 102/56 L 100 12/29/17 09:00 12/29/17 09:18 12/29/17 09:00 12/29/17 09:18 12/29/17 09:00 - Medications Medications: Current Medications Albuterol/Ipratropium (Duoneb 3 Mg/0.5 Mg (3 Ml) Ud) 3 ml IH RQ6 PRN PRN Reason: Wheezing Aspirin (Ecotrin) 81 mg PO DAILY [facility] Last Admin: 12/29/17 09:17 Dose: 81 mg Atorvastatin Calcium (Lipitor) 20 mg PO HS [facility] Clopidogrel Bisulfate (Plavix) 75 mg PO DAILY [facility] Last Admin: 12/29/17 09:17 Dose: 75 mg Digoxin (Digoxin) 0.125 mg PO DAILY [facility] Last Admin: 12/29/17 10:02 Dose: Not Given Insulin Human Regular (Humulin R) 0 units SC ACHS [facility] PRN Reason: Protocol Last Admin: 12/29/17 08:22 Dose: Not Given Losartan Potassium (Cozaar) 25 mg PO DAILY [facility] Last Admin: 12/29/17 09:15 Dose: 25 mg Metoprolol Succinate (Toprol Xl) 25 mg PO DAILY [facility] Last Admin: 12/29/17 09:18 Dose: Not Given Sertraline HCl (Zoloft) 50 mg PO DAILY [facility] Last Admin: 12/29/17 09:14 Dose: 50 mg Tamsulosin HCl (Flomax) 0.4 mg PO DAILY [facility] Last Admin: 12/29/17 09:17 Dose: 0.4 mg Tiotropium [place] (Spiriva) 18 mcg INH DAILY [facility] Last Admin: 12/29/17 09:14 Dose: 18 mcg Tramadol HCl (Ultram) 50 mg PO Q6 PRN PRN Reason: For pain scale 4-10 Last Admin: 12/29/17 09:29 Dose: 50 mg - Labs Labs: 12/28/17 04:45 12/28/17 04:45 PT 11.9 Seconds (9.8-13.1) 12/25/17 20:43 INR 1.1 (0.9-1.2) 12/25/17 20:43 APTT 33.0 Seconds (25.6-37.1) 12/25/17 20:43 - Constitutional Appears: Non-toxic, Chronically Ill - Head Exam Head Exam: NORMAL INSPECTION, NORMOCEPHALIC - Eye Exam Eye Exam: EOMI, Normal appearance Pupil Exam: NORMAL ACCOMMODATION - ENT Exam ENT Exam: Mucous Membranes Moist, Normal External Ear Exam - Neck Exam Neck Exam: Full ROM. absent: Meningismus - Respiratory Exam Respiratory Exam: NORMAL BREATHING PATTERN. absent: Respiratory Distress - Cardiovascular Exam Cardiovascular Exam: REGULAR RHYTHM, +S1, +S2 - GI/Abdominal Exam GI & Abdominal Exam: Soft, Normal Bowel Sounds. absent: Tenderness - Extremities Exam Extremities Exam: Normal Capillary Refill. absent: Calf Tenderness, Pedal Edema - Back Exam Back Exam: absent: CVA tenderness (L), CVA tenderness (R) - Neurological Exam Neurological Exam: Alert, Awake, Oriented x3 - Psychiatric Exam Psychiatric exam: Normal Affect, Normal Mood - Skin Skin Exam: Dry, Normal Color, Warm Assessment and Plan - Assessment and Plan (Free Text) Assessment: 72 years old male with hx of COPD, DM, HTN. CAD s/p PCI X3, refused cardiac cath earlier this year, comes with one hour of chest pain on exertion, radiating to the right upper back and associated with SOB. He took 2 Aspirins at home without pain relief. No coughing nor palpitation, no fever nor dizziness. Troponin x 1 positive Echo :EF 20%, Akinesia, Hypokinesia 1. NSTEMI - 2nd Troponin positive at 0.14 - Serial EKGs- patient has old T wave inversions I , AVL, new t wave flattening v2 and deep t wave inversions in v3-6 suggesting ischemia. - Pt refusing Cardiac cath despite explanation of benefits/risks - cont Therapeutic dose of LOvenox - cont ASA, Plavix, Statin and BB - added Losartan 2. DM II - Regular Insulin sliding scale according to accucheck 3. Hypokalemia - Replaced with KCL - Follow electrolytes 4. COPD, stable - cont Duoneb tx and Spiriva 5. Cardiomyopathy , prob ischemic refused any further cardiac work up - decrease Digoxin to qother day due to bradycardia -cont BB and ARB 6. Anxiety/depression -cont Zoloft - 7. Physical Deconditioning - pt feeling weak -resides in a 3rd floor walk up apartment - Physical Therapy consult - Plan to d/c pt to TCU for some PT 8. Underweight BMI : 18.5 cont Glucerna #. DVT prophylaxis pt is on therapeutic dose of Lovenox
--- NOTE | 2017-12-29 16:21 | CP.PCM.PN ---
Subjective - Date & Time of Evaluation Date of Evaluation: 12/29/17 Time of Evaluation: 15:00 - Subjective Subjective: NO CHEST PAIN OR SOB FEELS BETTER BUT IS WEAK Objective - Vital Signs/Intake and Output Vital Signs (last 24 hours): Temp Pulse Resp BP Pulse Ox 97.9 F 57 L 17 95/57 L 99 12/29/17 16:02 12/29/17 16:02 12/29/17 16:02 12/29/17 16:02 12/29/17 16:02 - Medications Medications: Current Medications Albuterol/Ipratropium (Duoneb 3 Mg/0.5 Mg (3 Ml) Ud) 3 ml IH RQ6 PRN PRN Reason: Wheezing Aspirin (Ecotrin) 81 mg PO DAILY [facility] Last Admin: 12/29/17 09:17 Dose: 81 mg Atorvastatin Calcium (Lipitor) 20 mg PO HS [facility] Clopidogrel Bisulfate (Plavix) 75 mg PO DAILY [facility] Last Admin: 12/29/17 09:17 Dose: 75 mg Digoxin (Digoxin) 0.125 mg PO QOTHERDAY [facility] Insulin Human Regular (Humulin R) 0 units SC ACHS [facility] PRN Reason: Protocol Last Admin: 12/29/17 13:06 Dose: Not Given Losartan Potassium (Cozaar) 25 mg PO DAILY [facility] Last Admin: 12/29/17 09:15 Dose: 25 mg Metoprolol Succinate (Toprol Xl) 25 mg PO DAILY [facility] Last Admin: 12/29/17 09:18 Dose: Not Given Sertraline HCl (Zoloft) 50 mg PO DAILY [facility] Last Admin: 12/29/17 09:14 Dose: 50 mg Tamsulosin HCl (Flomax) 0.4 mg PO DAILY [facility] Last Admin: 12/29/17 09:17 Dose: 0.4 mg Tiotropium [place] (Spiriva) 18 mcg INH DAILY [facility] Last Admin: 12/29/17 09:14 Dose: 18 mcg Tramadol HCl (Ultram) 50 mg PO Q6 PRN PRN Reason: For pain scale 4-10 Last Admin: 12/29/17 09:29 Dose: 50 mg - Labs Labs: 12/28/17 04:45 12/28/17 04:45 PT 11.9 Seconds (9.8-13.1) 12/25/17 20:43 INR 1.1 (0.9-1.2) 12/25/17 20:43 APTT 33.0 Seconds (25.6-37.1) 12/25/17 20:43 - Respiratory Exam Respiratory Exam: Clear to Ausculation Bilateral - Cardiovascular Exam Cardiovascular Exam: REGULAR RHYTHM, +S1, +S2 - Extremities Exam Extremities Exam: Normal Inspection Assessment and Plan - Assessment and Plan (Free Text) Assessment: CAD WITH OLD NY'S AND NOW WITH NEW STEMI HYPERTENSION HYPERLIPIDEMIA TYPE 2 DM Plan: CONTINUE METOPROLOL, LOSARTAN, ASPIRIN, CLOPIDOGREL AND ATORVASTATIN PATIENT STILL REFUSING CARDIAC CATH OR DEFIBRILLATOR OK TO DISCHARGE PATIENT TO TCU IN AM
[2017-12-30 05:21] LABS: HEMOGLOBIN 12.7 g/dL (12.0-18.0); MEAN CELL VOLUME 95.2 fl (80.0-94.0); MEAN CORPUSCULAR HGB CONC 33.6 g/dL (33.0-37.0); RBC 3.97 Mil/uL (4.40-5.90); RED CELL DISTRIBUTION WIDTH 14.6 % (11.5-14.5); WHITE BLOOD COUNT 6.9 K/uL (4.8-10.8)
[2017-12-30 06:01] LABS: BLOOD UREA NITROGEN 19 mg/dl (9-20); CALCIUM 9.2 mg/dL (8.4-10.2); GFR AFRICAN-AMERICAN > 60; GFR NON-AFRICAN AMERICAN > 60
[2017-12-30] MEDS: Insulin Regular 100 units/ml SC SCH ×2 (06:31→13:03)
[2017-12-30] MEDS ORDERED: Enoxaparin 40 mg Syringe SC SCH (09:00)
[2017-12-30] MEDS ORDERED: Digoxin 125 mcg (0.125 mg) Tab PO SCH (09:00)
--- NOTE | 2017-12-30 09:03 | CP.PCM.PN ---
Subjective - Date & Time of Evaluation Date of Evaluation: 12/30/17 Time of Evaluation: 09:00 - Subjective Subjective: NO CHEST PAIN OR SOB STATES HE FEELS WEAK Objective - Vital Signs/Intake and Output Vital Signs (last 24 hours): Temp Pulse Resp BP Pulse Ox 98.0 F 58 L 20 100/60 98 12/30/17 08:07 12/30/17 08:07 12/30/17 08:07 12/30/17 08:07 12/30/17 08:07 Intake and Output: 12/30/17 12/30/17 06:59 18:59 Intake Total 1200 Balance 1200 - Medications Medications: Current Medications Albuterol/Ipratropium (Duoneb 3 Mg/0.5 Mg (3 Ml) Ud) 3 ml IH RQ6 PRN PRN Reason: Wheezing Aspirin (Ecotrin) 81 mg PO DAILY [facility] Last Admin: 12/29/17 09:17 Dose: 81 mg Atorvastatin Calcium (Lipitor) 20 mg PO HS [facility] Last Admin: 12/29/17 21:40 Dose: 20 mg Clopidogrel Bisulfate (Plavix) 75 mg PO DAILY [facility] Last Admin: 12/29/17 09:17 Dose: 75 mg Digoxin (Digoxin) 0.125 mg PO QOTHERDAY [facility] Enoxaparin Sodium (Lovenox) 40 mg SC DAILY [facility] PRN Reason: Protocol Insulin Human Regular (Humulin R) 0 units SC [facility] PRN Reason: Protocol Last Admin: 12/30/17 06:31 Dose: Not Given Losartan Potassium (Cozaar) 25 mg PO DAILY [facility] Last Admin: 12/29/17 09:15 Dose: 25 mg Metoprolol Succinate (Toprol Xl) 25 mg PO DAILY [facility] Last Admin: 12/29/17 09:18 Dose: Not Given Sertraline HCl (Zoloft) 50 mg PO DAILY [facility] Last Admin: 12/29/17 09:14 Dose: 50 mg Tamsulosin HCl (Flomax) 0.4 mg PO DAILY [facility] Last Admin: 12/29/17 09:17 Dose: 0.4 mg Tiotropium [place] (Spiriva) 18 mcg INH DAILY [facility] Last Admin: 12/29/17 09:14 Dose: 18 mcg Tramadol HCl (Ultram) 50 mg PO Q6 PRN PRN Reason: For pain scale 4-10 Last Admin: 07/08/18 09:29 Dose: 50 mg - Labs Labs: 12/30/17 04:20 12/30/17 04:20 PT 11.9 Seconds (9.8-13.1) 12/25/17 20:43 INR 1.1 (0.9-1.2) 12/25/17 20:43 APTT 33.0 Seconds (25.6-37.1) 12/25/17 20:43 - Respiratory Exam Respiratory Exam: Clear to Ausculation Bilateral - Cardiovascular Exam Cardiovascular Exam: REGULAR RHYTHM, +S1, +S2 - Extremities Exam Extremities Exam: Normal Inspection - Additional Findings Additional findings: [employer] NSR Assessment and Plan - Assessment and Plan (Free Text) Assessment: CAD WITH NEW NSTEMI HYPERTENSION HYPERLIPIDEMIA Plan: CONTINUE METOPROLOL, LOSARTAN, ATORVASTATIN, ASPIRIN, CLOPIDOGREL AND LOVENOX FOR DISCHARGE TO TCU
[2017-12-30] MEDS: Metoprolol Succinate 25 mg XL Tab PO SCH (09:20)
[2017-12-30] MEDS: Tiotropium 18 mcg Cap For Inhalation INH SCH (09:21)
[2017-12-30 09:26] VITALS: PULSE 60
--- NOTE | 2017-12-30 10:27 | CP.PCM.DIS ---
Provider - Provider Date of Admission: 12/26/17 08:45 Attending physician: Camden Verdin Primary care physician: Dr Pandya Consults: Cardio: Dr House Time Spent in preparation of Discharge (in minutes): 25 Diagnosis - Discharge Diagnosis (1) NSTEMI (non-ST elevated myocardial infarction) Status: Acute (2) HLD (hyperlipidemia) Status: Acute (3) COPD (chronic obstructive pulmonary disease) Status: Chronic Priority: High (4) DM2 (diabetes mellitus, type 2) Status: Chronic Priority: High (5) HTN (hypertension) Status: Chronic Priority: Low Hospital Course - Lab Results Lab Results: Micro Results 12/25/17 20:43 Blood-Venous Blood Culture - Preliminary NO GROWTH AFTER 4 DAYS 12/25/17 20:43 Blood-Venous Blood Culture - Preliminary NO GROWTH AFTER 4 DAYS Most Recent Lab Values WBC 6.9 K/uL (4.8-10.8) 12/30/17 04:20 RBC 3.97 Mil/uL (4.40-5.90) L 12/30/17 04:20 Hgb 12.7 g/dL (12.0-18.0) 12/30/17 04:20 Hct 37.8 % (35.0-51.0) 12/30/17 04:20 MCV 95.2 fl (80.0-94.0) H 12/30/17 04:20 MCH 32.0 pg (27.0-31.0) H 12/30/17 04:20 MCHC 33.6 g/dL (33.0-37.0) 12/30/17 04:20 RDW 14.6 % (11.5-14.5) H 12/30/17 04:20 Plt Count 207 K/uL (130-400) 12/30/17 04:20 MPV 8.6 fl (7.2-11.7) 12/25/17 20:43 Neut % (Auto) 64.1 % (50.0-75.0) 12/25/17 20:43 Lymph % (Auto) 24.2 % (20.0-40.0) 12/25/17 20:43 Weber % (Auto) 7.1 % (0.0-10.0) 12/25/17 20:43 Eos % (Auto) 3.4 % (0.0-4.0) 12/25/17 20:43 Baso % (Auto) 1.2 % (0.0-2.0) 12/25/17 20:43 Neut # (Auto) 4.7 K/uL (1.8-7.0) 12/25/17 20:43 Lymph # (Auto) 1.8 K/uL (1.0-4.3) 12/25/17 20:43 Weber # (Auto) 0.5 K/uL (0.0-0.8) 12/25/17 20:43 Eos # (Auto) 0.2 K/uL (0.0-0.7) 12/25/17 20:43 Baso # (Auto) 0.1 K/uL (0.0-0.2) 12/25/17 20:43 PT 11.9 Seconds (9.8-13.1) 12/25/17 20:43 INR 1.1 (0.9-1.2) 12/25/17 20:43 APTT 33.0 Seconds (25.6-37.1) 12/25/17 20:43 Sodium 138 mmol/l (132-148) 12/30/17 04:20 Potassium 4.6 MMOL/L (3.6-5.0) 12/30/17 04:20 Chloride 100 mmol/L (98-107) 12/30/17 04:20 Carbon Dioxide 28 mmol/L (22-30) 12/30/17 04:20 Anion Gap 15 (10-20) 12/30/17 04:20 BUN 19 mg/dl (9-20) 12/30/17 04:20 Creatinine 1.0 mg/dl (0.8-1.5) 12/30/17 04:20 Est GFR ( Amer) > 60 12/30/17 04:20 Est GFR (Non-Af Amer) > 60 12/30/17 04:20 POC Glucose (mg/dL) 111 mg/dL (65-110) H 12/30/17 05:08 Random Glucose 112 mg/dL (75-110) H 12/30/17 04:20 Calcium 9.2 mg/dL (8.4-10.2) 12/30/17 04:20 Phosphorus 3.2 mg/dl (2.5-4.5) 12/25/17 20:43 Magnesium 1.6 MG/DL (1.6-2.3) 12/25/17 20:43 Total Bilirubin 0.7 mg/dl (0.2-1.3) 12/25/17 20:43 AST 23 U/L (17-59) 12/25/17 20:43 ALT 23 U/L (21-72) 12/25/17 20:43 Alkaline Phosphatase 68 U/L (38-126) 12/25/17 20:43 Troponin I 0.0870 ng/mL (0.00-0.120) 12/27/17 05:24 NT-Pro-B Natriuret Pep 3420 pg/ml (0-900) H 12/25/17 20:43 Total Protein 7.0 G/DL (6.3-8.2) 12/25/17 20:43 Albumin 4.0 g/dL (3.5-5.0) 12/25/17 20:43 Globulin 3.1 gm/dL (2.2-3.9) 12/25/17 20:43 Albumin/Globulin Ratio 1.3 (1.0-2.1) 12/25/17 20:43 Triglycerides 154 mg/DL (0-149) H 12/26/17 05:00 Cholesterol 135 mg/dL (0-199) 12/26/17 05:00 LDL Cholesterol Direct 87 mg/dL (0-129) 12/26/17 05:00 HDL Cholesterol 18 MG/DL (30-70) L 12/26/17 05:00 Digoxin 0.6 ng/mL (0.8-2.0) L 12/25/17 20:43 Urine Opiates Screen Negative (NEGATIVE) 12/25/17 21:00 Urine Methadone Screen Negative (NEGATIVE) 12/25/17 21:00 Ur Barbiturates Screen Negative (NEGATIVE) 12/25/17 21:00 Ur Phencyclidine Scrn Negative (NEGATIVE) 12/25/17 21:00 Ur Amphetamines Screen Negative (NEGATIVE) 12/25/17 21:00 U Benzodiazepines Scrn Negative (NEGATIVE) 12/25/17 21:00 U Oth Cocaine Metabols Negative (NEGATIVE) 12/25/17 21:00 U Cannabinoids Screen Negative (NEGATIVE) 07/04/18 21:00 - Hospital Course Hospital Course: 72 years old male with hx of COPD, DM, HTN. CAD s/p PCI X3, refused cardiac cath earlier this year, comes with one hour of chest pain on exertion, radiating to the right upper back and associated with SOB. He took 2 Aspirins at home without pain relief. No coughing nor palpitation, no fever nor dizziness. Troponin x 1 positive Echo :EF 20%, Akinesia, Hypokinesia Pt continues to refuse Cardiac cath despite explanation of benefits/risks. He was managed medically in Telemetry , received therapeutic anticoagulation ( Lovenox) 1. NSTEMI - 2nd Troponin positive at 0.14 - Serial EKGs- patient has old T wave inversions I , AVL, new t wave flattening v2 and deep t wave inversions in v3-6 suggesting ischemia. - Pt refused Cardiac cath despite explanation of benefits/risks - Received therapeutic dose of Lovenox - cont ASA, Plavix, Statin and BB - added Losartan 2. DM II - Regular Insulin sliding scale according to accucheck - flucose controlled on diet 3. Hypokalemia - Replaced with KCL 4. COPD, chronic stable - cont Duoneb tx and Spiriva 5. Cardiomyopathy , prob ischemic refused any further cardiac work up - decrease Digoxin to every other day due to bradycardia -cont BB and ARB 6. Anxiety/depression -cont Zoloft - 7. Physical Deconditioning - pt feeling weak -resides in a 3rd floor walk up apartment - Physical Therapy consult - Plan to d/c pt to TCU for PT 8. Underweight BMI : 18.5 cont Glucerna #. DVT prophylaxis Lovenox Discharge Exam - Head Exam Head Exam: ATRAUMATIC, NORMAL INSPECTION, NORMOCEPHALIC - Eye Exam Eye Exam: EOMI, Normal appearance Pupil Exam: NORMAL ACCOMODATION - ENT Exam ENT Exam: Mucous Membranes Moist, Normal External Ear Exam - Neck Exam Neck exam: Full Rom - Respiratory Exam Respiratory Exam: NORMAL BREATHING PATTERN. absent: Respiratory Distress - Cardiovascular Exam Cardiovascular Exam: REGULAR RHYTHM, +S1, +S2 - GI/Abdominal Exam GI & Abdominal Exam: Normal Bowel Sounds, Soft. absent: Tenderness - Extremities Exam Extremities exam: normal capillary refill, pedal pulses present - Back Exam Back exam: absent: CVA tenderness (L), CVA tenderness (R) - Neurological Exam Neurological exam: Alert, Oriented x3, Reflexes Normal - Psychiatric Exam Psychiatric exam: Normal Affect, Normal Mood - Skin Skin Exam: Dry, Normal Color, Warm Discharge Plan - Follow Up Plan Condition: STABLE Disposition: TRANSF TO SNF Additional Instructions: d/c to TCU
--- NOTE | 2017-12-30 11:24 | CARD ---
APPROVED REPORT EKG Measurement Heart [id number] <Conclusion> Sinus bradycardia Left anterior fascicular block Left ventricular hypertrophy with QRS widening and repolarization abnormality Anteroseptal infarct, age undetermined Abnormal ECG
[2017-12-30 16:41] VITALS: BP 110/57; PULSE 50; RESP 18; TEMP 98; O2SAT 99
--- NOTE | 2017-12-31 11:21 | PQF ---
PROVIDER RESPONSE TEXT: Acute systolic chf REVIEWER QUERY TEXT: CHF Acuity and Type Congestive Heart Failure is documented in the Medical Record. Please document the type and acuity (in cludes probable or suspected) Such as: Type: -- Systolic -- Diastolic -- Combined -- Other, please specify Acuity: -- Acute -- Chronic -- Acute on chronic -- Other, please specify Also please document the underlying cause of the CHF (includes probable or suspected) The patient's Clinical Indicators include: Documentation in the medical record that this patient has a history of CHF. ECHO : EF 20%, see report, Pro BNP 3420, CXR: No active disease. Medication: Cozaar, Digoxin, Query created by: Leslee Padilla on 12/27/2017 1:13 PM Electronically signed by: Maximo House MD 12/31/2017 11:18 AM
== END 2017-12-30 16:37 | DRG 280 ==
LOC: H.ER 19:44 → H.ERHOLD 22:20 → H.TEL 12-26 00:05 → OBSVTOIN 12-26 08:45
PROVIDERS: ADMIT Internal Medicine; ATTEND Internal Medicine
DX: I21.4 Non-ST elevation (NSTEMI) myocardial infarction (principal); I50.21 Acute systolic (congestive) heart failure; Z68.1 Body mass index [BMI] 19.9 or less, adult; E11.65 Type 2 diabetes mellitus with hyperglycemia; E87.6 Hypokalemia; F32.9 Major depressive disorder, single episode, unspecified; F41.9 Anxiety disorder, unspecified; G25.81 Restless legs syndrome; J43.9 Emphysema, unspecified; R63.6 Underweight; Z88.6 Allergy status to analgesic agent; Z88.0 Allergy status to penicillin; I25.10 Atherosclerotic heart disease of native coronary artery without angina pectoris; Z95.5 Presence of coronary angioplasty implant and graft; Z86.73 Personal history of transient ischemic attack (TIA), and cerebral infarction without residual deficits; E78.00 Pure hypercholesterolemia, unspecified; E78.5 Hyperlipidemia, unspecified; G35 Multiple sclerosis; F17.210 Nicotine dependence, cigarettes, uncomplicated; I25.2 Old myocardial infarction; I25.5 Ischemic cardiomyopathy; Z66 Do not resuscitate; I10 Essential (primary) hypertension; M19.90 Unspecified osteoarthritis, unspecified site; Z53.20 Procedure and treatment not carried out because of patient's decision for unspecified reasons; I11.0 Hypertensive heart disease with heart failure

== ENCOUNTER 2017-12-30 14:32 | Inpatient (IN) | payer OTHER ==
[2017-12-30 16:52] VITALS: BMI 18.6
[2017-12-30] MEDS ORDERED: Albuterol-Ipratrop 3 mg / 0.5 (3 ml) UD IH PRN (17:28)
[2017-12-30] MEDS ORDERED: Glucagon Recombinant 1 mg Inj IM PRN (17:34)
[2017-12-30] MEDS ORDERED: Dextrose 50% SYRINGE Inj (50 ml) IV PRN (17:34)
[2017-12-31] MEDS: Insulin Lispro (humaLOG) 100 Units/ml Inj SC SCH ×3 (07:00→16:40)
[2017-12-31] MEDS: Enoxaparin 40 mg Syringe SC SCH (08:16)
[2017-12-31] MEDS: Tiotropium 18 mcg Cap For Inhalation INH SCH (08:17)
[2017-12-31] MEDS: Metoprolol Succinate 25 mg XL Tab PO SCH (08:18)
--- NOTE | 2017-12-31 10:53 | CP.PCM.CON ---
History of Present Illness - History of Present Illness History of Present Illness: THE PATIENT IS A 72 YEAR OLD MALE WHO WAS JUST DISCHARGED FROM TO TCU DUE TO DECONDITIONING. HE HAS A HISTORY OF CAD WITH TWO PRIOR NY'S AND HE JUST HAD A THIRD NY THAT WAS A NSTEMI LAST WEEK. HE DECLINED A CARDIAC CATH AND ONLY WANTED CONSERVATIVE MEDICAL TREATMENT. HE ALSO HAS A HISTORY OF HYPERTENSION, HYPERLIPIDEMIA, TYPE 2 DM, COPD, AN OLD CVA AND MS. HE IS NOW CHEST PAIN FREE AND HIS BREATHING IS GOOD. HE IS VERY DECONDITIONED AND DIDN'T THINK HE COULD GET AROUND WELL AT HOME SINCE HE LIVES ALONE AND REQUESTED SUBACUTE REHAB. CARDIOLOGY WAS ASKED TO FOLLOW HIM IN TCU. Past Patient History - Infectious Disease Hx of Infectious Diseases: None - Tetanus Immunizations Tetanus Immunization: Unknown - Past Medical History & Family History Past Medical History?: Yes - Past Social History Smoking Status: Light Smoker < 10 Cigarettes Daily - CARDIAC Hx Cardiac Disorders: Yes Hx Cardia Arrhythmia: Yes Hx Congestive Heart Failure: Yes Hx Hypercholesterolemia: Yes Hx Hypertension: Yes - PULMONARY Hx Respiratory Disorders: Yes Hx Asthma: Yes Hx Bronchitis: No Hx Chronic Obstructive Pulmonary Disease (COPD): Yes Hx Emphysema: Yes Hx Pneumonia: Yes - NEUROLOGICAL Hx Neurological Disorder: Yes Hx Multiple Sclerosis: Yes Hx Transient Ischemic Attacks (TIA): Yes - HEENT Hx HEENT Problems: No - RENAL Hx Chronic Kidney Disease: No - ENDOCRINE/METABOLIC Hx Endocrine Disorders: Yes Hx Diabetes Mellitus Type 2: Yes - HEMATOLOGICAL/ONCOLOGICAL Hx Blood Disorders: Yes Hx AIDS: No Hx Anemia: Yes Hx Human Immunodeficiency Virus (HIV): No - INTEGUMENTARY Hx Dermatological Problems: No - MUSCULOSKELETAL/RHEUMATOLOGICAL Hx Musculoskeletal Disorders: Yes Hx Arthritis: Yes Hx Falls: No Hx Fractures: Yes (bilateral feet) - GASTROINTESTINAL Hx Gastrointestinal Disorders: No - GENITOURINARY/GYNECOLOGICAL Hx Genitourinary Disorders: No - PSYCHIATRIC Hx Psychophysiologic Disorder: Yes Hx Anxiety: Yes Hx Depression: Yes Hx Substance Use: No - SURGICAL HISTORY Hx Surgeries: Yes Hx Cholecystectomy: Yes Hx Coronary Artery Bypass Graft: No Hx Coronary Stent: Yes (x3) - ANESTHESIA Hx Anesthesia: Yes Hx Anesthesia Reactions: No Hx Malignant Hyperthermia: No Meds Allergies/Adverse Reactions: Allergies Allergy/AdvReac Type Severity Reaction Status Date / Time ampicillin Allergy RASH Verified 12/30/17 15:58 codeine AdvReac HEADACHE Verified 12/30/17 15:58 - Medications Medications: Current Medications Albuterol/Ipratropium (Duoneb 3 Mg/0.5 Mg (3 Ml) Ud) 3 ml IH Q6 PRN PRN Reason: Wheezing Aspirin (Ecotrin) 81 mg PO DAILY [facility] Last Admin: 12/31/17 08:17 Dose: 81 mg Atorvastatin Calcium (Lipitor) 20 mg PO DAILY [facility] Last Admin: 12/31/17 08:18 Dose: 20 mg Clopidogrel Bisulfate (Plavix) 75 mg PO DAILY [facility] Last Admin: 12/31/17 08:16 Dose: 75 mg Dextrose (Dextrose 50% Inj) 0 ml IV STAT PRN; Protocol PRN Reason: Hypoglycemia Protocol Dextrose (Glutose 15) 0 gm PO ONCE PRN; Protocol PRN Reason: Hypoglycemia Protocol Digoxin (Digoxin) 0.125 mg PO QOTHERDAY [facility] Enoxaparin Sodium (Lovenox) 40 mg SC DAILY [facility] PRN Reason: Protocol Last Admin: 12/31/17 08:16 Dose: 40 mg Glucagon (Glucagen Diagnostic Kit) 0 mg IM STAT PRN; Protocol PRN Reason: Hypoglycemia Protocol Insulin Human Lispro (Humalog) 0 units SC AC [facility] PRN Reason: Protocol Last Admin: 12/31/17 07:00 Dose: Not Given Losartan Potassium (Cozaar) 25 mg PO DAILY [facility] Last Admin: 12/31/17 08:17 Dose: 25 mg Metoprolol Succinate (Toprol Xl) 25 mg PO DAILY [facility] Last Admin: 12/31/17 08:18 Dose: 25 mg Sertraline HCl (Zoloft) 50 mg PO DAILY [facility] Last Admin: 12/31/17 08:16 Dose: 50 mg Tamsulosin HCl (Flomax) 0.4 mg PO DAILY [facility] Last Admin: 12/31/17 08:17 Dose: 0.4 mg Tiotropium [place] (Spiriva) 18 mcg INH DAILY [facility] Last Admin: 12/31/17 08:17 Dose: 18 mcg Tramadol HCl (Ultram) 50 mg PO Q6 PRN PRN Reason: pain Last Admin: 12/31/17 08:20 Dose: 50 mg Physical Exam - Respiratory Exam Respiratory Exam: Clear to Auscultation Bilateral - Cardiovascular Exam Cardiovascular Exam: REGULAR RHYTHM, +S1, +S2 - Extremities Exam Extremities exam: Positive for: normal inspection - Additional Findings Additional findings: EKG ON 4N SHOWED SINUS RHYTHM AND CHRONIC T WAVE INVERSIONS IN LEADS I,L AND THE CHEST LEADS ECHO LAST WEEK WITH LVEF OF 20% Results - Vital Signs Recent Vital Signs: Last Vital Signs Temp 97.3 F L 12/31/17 08:27 Pulse 59 L 12/31/17 08:31 Resp 20 12/31/17 08:27 BP 111/65 12/31/17 08:27 Pulse Ox 100 12/31/17 08:31 - Labs Labs: Laboratory Results - last 24 hr 12/30/17 12/31/17 20:36 05:58 POC Glucose (mg/dL) 185 H 113 H Assessment & Plan - Assessment and Plan (Free Text) Assessment: CAD WITH 2 OLD NY'S AND A NSTEMI LAST WEEK-HEMODYNAMICALLY STABLE AND ANGINA FREE HYPERTENSION HYPERLIPIDEMIA TYPE 2 DM COPD Plan: CONTINUE METOPROLOL, LOSARTAN, ASPIRIN, CLOPIDOGREL, LOVENOX ATORVASTATIN CONTINUE SUBACUTE REHAB
--- NOTE | 2017-12-31 18:21 | CP.PCM.HP ---
History of Present Illness - History of Present Illness History of Present Illness: 72 yo male with history of COPD, DM, HTN and CAD with 3 PCI (refused cardiac cath earlier this year) came in with chest pain radiating to the right upper back accompanied with SOB. One Troponin was positive and ECHO showed Akinesia/ Hypokinesia with EF at 20%. Patient again refused cardiac cath. He received therapeutic anticoagulation and was sent to TCU for rehab and to continue management. Present on Admission - Present on Admission Any Indicators Present on Admission: No History of DVT/PE: No History of Uncontrolled Diabetes: No Urinary Catheter: No Decubitus Ulcer Present: No Review of Systems - Review of Systems All systems: reviewed and no additional remarkable complaints except (aside from those mentioned above, 12 point system review were negative by me) Past Patient History - Infectious Disease Hx of Infectious Diseases: None - Tetanus Immunizations Tetanus Immunization: Unknown - Past Medical History & Family History Past Medical History?: Yes - Past Social History Smoking Status: Light Smoker < 10 Cigarettes Daily - CARDIAC Hx Congestive Heart Failure: Yes Hx Hypercholesterolemia: Yes Hx Hypertension: Yes - PULMONARY Hx Chronic Obstructive Pulmonary Disease (COPD): Yes - NEUROLOGICAL Hx Neurological Disorder: Yes Hx Multiple Sclerosis: Yes Hx Transient Ischemic Attacks (TIA): Yes - HEENT Hx HEENT Problems: No - RENAL Hx Chronic Kidney Disease: No - ENDOCRINE/METABOLIC Hx Diabetes Mellitus Type 2: Yes - HEMATOLOGICAL/ONCOLOGICAL Hx Blood Disorders: Yes Hx AIDS: No Hx Anemia: Yes Hx Human Immunodeficiency Virus (HIV): No - INTEGUMENTARY Hx Dermatological Problems: No - MUSCULOSKELETAL/RHEUMATOLOGICAL Hx Arthritis: Yes - GASTROINTESTINAL Hx Gastrointestinal Disorders: No - GENITOURINARY/GYNECOLOGICAL Hx Genitourinary Disorders: No - PSYCHIATRIC Hx Psychophysiologic Disorder: Yes Hx Anxiety: Yes Hx Depression: Yes Hx Substance Use: No - SURGICAL HISTORY Hx Surgeries: Yes Hx Cholecystectomy: Yes Hx Coronary Artery Bypass Graft: No Hx Coronary Stent: Yes (x3) - ANESTHESIA Hx Anesthesia: Yes Hx Anesthesia Reactions: No Hx Malignant Hyperthermia: No Meds Allergies/Adverse Reactions: Allergies Allergy/AdvReac Type Severity Reaction Status Date / Time ampicillin Allergy RASH Verified 12/30/17 15:58 codeine AdvReac HEADACHE Verified 12/30/17 15:58 Physical Exam - Constitutional Appears: No Acute Distress - Head Exam Head Exam: ATRAUMATIC - Eye Exam Eye Exam: absent: Scleral icterus - ENT Exam ENT Exam: Mucous Membranes Moist - Neck Exam Neck exam: Negative for: Meningismus - Respiratory Exam Respiratory Exam: absent: Rales, Rhonchi, Wheezes, Respiratory Distress - Cardiovascular Exam Cardiovascular Exam: REGULAR RHYTHM, +S1, +S2 - GI/Abdominal Exam GI & Abdominal Exam: Soft. absent: Tenderness - Rectal Exam Rectal Exam: Deferred - Back Exam Back exam: absent: tenderness - Neurological Exam Neurological exam: Alert, Oriented x3 - Psychiatric Exam Psychiatric exam: Normal Affect - Skin Skin Exam: Dry, Intact Results - Vital Signs Recent Vital Signs: Last Vital Signs Temp 97.7 F 12/31/17 16:07 Pulse 59 L 12/31/17 16:07 Resp 20 12/31/17 16:07 BP 105/58 L 12/31/17 16:07 Pulse Ox 97 12/31/17 16:07 - Labs Labs: Laboratory Results - last 24 hr 12/30/17 12/31/17 12/31/17 20:36 05:58 10:59 POC Glucose (mg/dL) 185 H 113 H 138 H 12/31/17 15:55 POC Glucose (mg/dL) 202 H Assessment & Plan - Assessment and Plan (Free Text) Assessment: 72 yo male with history of COPD, DM, HTN and CAD with 3 PCI (refused cardiac cath earlier this year) came in with chest pain radiating to the right upper back accompanied with SOB. One Troponin was positive and ECHO showed Akinesia/ Hypokinesia with EF at 20%. Patient again refused cardiac cath. He received therapeutic anticoagulation and was sent to TCU for rehab and to continue management. 1. NSTEMI 2nd Troponin positive at 0.14 Serial EKGs- patient has old T wave inversions I , AVL, new t wave flattening v2 and deep t wave inversions in v3-6 suggesting ischemia refused cardiac cath received therapeutic dose of Lovenox for 5 days cont ASA, Plavix, Statin, BB and Losartan 2. DM II Regular Insulin sliding scale according to accucheck 3. COPD, stable cont Duoneb and Spiriva 4. Cardiomyopathy refused any further cardiac work up decrease Digoxin to q other day due to bradycardia cont BB and ARB 5. Anxiety/depression cont Zoloft - 6. Physical Deconditioning continue PT 7. DVT prophylaxis on Lovenox
[2018-01-01] MEDS: Insulin Lispro (humaLOG) 100 Units/ml Inj SC SCH ×3 (06:36→17:49)
[2018-01-01] MEDS: Digoxin 125 mcg (0.125 mg) Tab PO SCH (08:33)
[2018-01-01] MEDS: Enoxaparin 40 mg Syringe SC SCH (08:34)
[2018-01-01] MEDS: Metoprolol Succinate 25 mg XL Tab PO SCH (08:35)
[2018-01-01] MEDS: Tiotropium 18 mcg Cap For Inhalation INH SCH (08:35)
[2018-01-02] MEDS: Insulin Lispro (humaLOG) 100 Units/ml Inj SC SCH ×3 (07:31→16:50)
[2018-01-02] MEDS: Enoxaparin 40 mg Syringe SC SCH (08:35)
[2018-01-02] MEDS: Tiotropium 18 mcg Cap For Inhalation INH SCH (08:36)
[2018-01-02] MEDS: Metoprolol Succinate 25 mg XL Tab PO SCH (08:36)
--- NOTE | 2018-01-02 10:18 | CP.PCM.PN ---
Subjective - Date & Time of Evaluation Date of Evaluation: 01/02/18 Time of Evaluation: 09:30 - Subjective Subjective: NO CHEST PAIN BREATHING BETTER STILL FEELS WEAK Objective - Vital Signs/Intake and Output Vital Signs (last 24 hours): Temp Pulse Resp BP Pulse Ox 97.7 F 62 20 135/71 99 01/02/18 08:23 01/02/18 08:37 01/02/18 08:23 01/02/18 08:37 01/02/18 08:23 - Medications Medications: Current Medications Albuterol/Ipratropium (Duoneb 3 Mg/0.5 Mg (3 Ml) Ud) 3 ml IH Q6 PRN PRN Reason: Wheezing Aspirin (Ecotrin) 81 mg PO DAILY [facility] Last Admin: 01/02/18 08:37 Dose: 81 mg Atorvastatin Calcium (Lipitor) 20 mg PO DAILY [facility] Last Admin: 01/02/18 08:38 Dose: 20 mg Clopidogrel Bisulfate (Plavix) 75 mg PO DAILY [facility] Last Admin: 01/02/18 08:37 Dose: 75 mg Dextrose (Dextrose 50% Inj) 0 ml IV STAT PRN; Protocol PRN Reason: Hypoglycemia Protocol Dextrose (Glutose 15) 0 gm PO ONCE PRN; Protocol PRN Reason: Hypoglycemia Protocol Digoxin (Digoxin) 0.125 mg PO QOTHERDAY [facility] Last Admin: 01/01/18 08:33 Dose: 0.125 mg Enoxaparin Sodium (Lovenox) 40 mg SC DAILY [facility] PRN Reason: Protocol Last Admin: 01/02/18 08:35 Dose: 40 mg Glucagon (Glucagen Diagnostic Kit) 0 mg IM STAT PRN; Protocol PRN Reason: Hypoglycemia Protocol Insulin Human Lispro (Humalog) 0 units SC AC [facility] PRN Reason: Protocol Last Admin: 01/02/18 07:31 Dose: Not Given Losartan Potassium (Cozaar) 25 mg PO DAILY [facility] Last Admin: 01/02/18 08:37 Dose: 25 mg Metoprolol Succinate (Toprol Xl) 25 mg PO DAILY [facility] Last Admin: 01/02/18 08:36 Dose: 25 mg Sertraline HCl (Zoloft) 50 mg PO DAILY [facility] Last Admin: 01/02/18 08:38 Dose: 50 mg Tamsulosin HCl (Flomax) 0.4 mg PO DAILY [facility] Last Admin: 01/02/18 08:35 Dose: 0.4 mg Tiotropium [place] (Spiriva) 18 mcg INH DAILY [facility] Last Admin: 01/02/18 08:36 Dose: 18 mcg Tramadol HCl (Ultram) 50 mg PO Q6 PRN PRN Reason: Pain, moderate (4-7) - Respiratory Exam Respiratory Exam: Clear to Ausculation Bilateral - Cardiovascular Exam Cardiovascular Exam: REGULAR RHYTHM, +S1, +S2 - Extremities Exam Extremities Exam: Normal Inspection Assessment and Plan - Assessment and Plan (Free Text) Assessment: CAD HYPERTENSION HYPERLIPIDEMIA DECONDITIONING Plan: CONTINUE METOPROLOL, LOSARTAN, DIGOXIN, ASPIRIN, CLOPIDOGREL, ATORVASTATIN, LOVENOX CONTINUE SUBACUTE REHAB
--- NOTE | 2018-01-02 11:24 | CP.PCM.PN ---
Subjective - Date & Time of Evaluation Date of Evaluation: 01/02/18 Time of Evaluation: 10:00 - Subjective Subjective: Patient was seen and examined. Has no new complaints today. States that his therapies are going well. No cp, sob, headache, n/v/d. Objective - Vital Signs/Intake and Output Vital Signs (last 24 hours): Temp Pulse Resp BP Pulse Ox 97.7 F 62 20 135/71 99 01/02/18 10:00 01/02/18 10:00 01/02/18 10:00 01/02/18 10:00 01/02/18 10:00 - Medications Medications: Current Medications Albuterol/Ipratropium (Duoneb 3 Mg/0.5 Mg (3 Ml) Ud) 3 ml IH Q6 PRN PRN Reason: Wheezing Aspirin (Ecotrin) 81 mg PO DAILY [facility] Last Admin: 01/02/18 08:37 Dose: 81 mg Atorvastatin Calcium (Lipitor) 20 mg PO DAILY [facility] Last Admin: 01/02/18 08:38 Dose: 20 mg Clopidogrel Bisulfate (Plavix) 75 mg PO DAILY [facility] Last Admin: 01/02/18 08:37 Dose: 75 mg Dextrose (Dextrose 50% Inj) 0 ml IV STAT PRN; Protocol PRN Reason: Hypoglycemia Protocol Dextrose (Glutose 15) 0 gm PO ONCE PRN; Protocol PRN Reason: Hypoglycemia Protocol Digoxin (Digoxin) 0.125 mg PO QOTHERDAY [facility] Last Admin: 01/01/18 08:33 Dose: 0.125 mg Enoxaparin Sodium (Lovenox) 40 mg SC DAILY [facility] PRN Reason: Protocol Last Admin: 01/02/18 08:35 Dose: 40 mg Glucagon (Glucagen Diagnostic Kit) 0 mg IM STAT PRN; Protocol PRN Reason: Hypoglycemia Protocol Insulin Human Lispro (Humalog) 0 units SC AC [facility] PRN Reason: Protocol Last Admin: 01/02/18 07:31 Dose: Not Given Losartan Potassium (Cozaar) 25 mg PO DAILY [facility] Last Admin: 01/02/18 08:37 Dose: 25 mg Metoprolol Succinate (Toprol Xl) 25 mg PO DAILY [facility] Last Admin: 01/02/18 08:36 Dose: 25 mg Sertraline HCl (Zoloft) 50 mg PO DAILY [facility] Last Admin: 01/02/18 08:38 Dose: 50 mg Tamsulosin HCl (Flomax) 0.4 mg PO DAILY [facility] Last Admin: 01/02/18 08:35 Dose: 0.4 mg Tiotropium [place] (Spiriva) 18 mcg INH DAILY [facility] Last Admin: 01/02/18 08:36 Dose: 18 mcg Tramadol HCl (Ultram) 50 mg PO Q6 PRN PRN Reason: Pain, moderate (4-7) - Additional Findings Additional findings: Physical exam: Constitutional- cooperative, awake, alert Head- NCAT, PERRL Eye- PERRL, EOMI ENT- normal exam, MMM. Neck- normal inspection, supple, no JVD Respiratory- CTAB, no wheezes rales rhonchi Cardiovascular- RRR, +S1, +S2 no MRG GI/Abdominal- normal bowel sounds, soft, no mass, no hsm Skin- warm, dry Extremities Exam- normal capillary refill, normal inspection Neurological Exam- alert, awake, oriented Psych- normal mood, normal affect Assessment and Plan - Assessment and Plan (Free Text) Plan: 72 yo male with history of COPD, DM, HTN and CAD with 3 PCI (refused cardiac cath earlier this year) came in with chest pain radiating to the right upper back accompanied with SOB. One Troponin was positive and ECHO showed Akinesia/ Hypokinesia with EF at 20%. Patient again refused cardiac cath. He received therapeutic anticoagulation and was sent to TCU for rehab and to continue management. 1. NSTEMI No further cp reported by patient 2nd Troponin positive at 0.14 Serial EKGs- patient has old T wave inversions I , AVL, new t wave flattening v2 and deep t wave inversions in v3-6 suggesting ischemia refused cardiac cath received therapeutic dose of Lovenox for 5 days cont ASA, Plavix, Statin, BB and Losartan 2. DM II Regular Insulin sliding scale according to accucheck 3. COPD, stable cont Duoneb and Spiriva 4. Cardiomyopathy refused any further cardiac work up decrease Digoxin to q other day due to bradycardia cont BB and ARB 5. Anxiety/depression cont Zoloft 6. Physical Deconditioning continue PT 7. DVT prophylaxis on Lovenox
[2018-01-03 06:32] LABS: MEAN CELL VOLUME 95.1 fl (80.0-94.0); MEAN CORPUSCULAR HEMOGLOBIN 32.1 pg (27.0-31.0); MEAN CORPUSCULAR HGB CONC 33.7 g/dL (33.0-37.0); RBC 3.75 Mil/uL (4.40-5.90); RED CELL DISTRIBUTION WIDTH 14.5 % (11.5-14.5); WHITE BLOOD COUNT 7.3 K/uL (4.8-10.8)
[2018-01-03] MEDS: Insulin Lispro (humaLOG) 100 Units/ml Inj SC SCH ×3 (06:41→16:27)
[2018-01-03 06:50] LABS: BLOOD UREA NITROGEN 20 mg/dl (9-20); GFR AFRICAN-AMERICAN > 60; GFR NON-AFRICAN AMERICAN > 60
[2018-01-03] MEDS: Digoxin 125 mcg (0.125 mg) Tab PO SCH (08:14)
[2018-01-03] MEDS: Metoprolol Succinate 25 mg XL Tab PO SCH (08:15)
[2018-01-03] MEDS: Enoxaparin 40 mg Syringe SC SCH (08:16)
[2018-01-03] MEDS: Tiotropium 18 mcg Cap For Inhalation INH SCH (08:16)
[2018-01-03 17:18] VITALS: RESP 20
[2018-01-04] MEDS: Insulin Lispro (humaLOG) 100 Units/ml Inj SC SCH ×3 (06:41→17:41)
[2018-01-04] MEDS: Enoxaparin 40 mg Syringe SC SCH (08:42)
[2018-01-04] MEDS: Tiotropium 18 mcg Cap For Inhalation INH SCH (08:43)
[2018-01-04] MEDS: Metoprolol Succinate 25 mg XL Tab PO SCH (08:43)
--- NOTE | 2018-01-04 14:13 | CP.PCM.PN ---
Subjective - Date & Time of Evaluation Date of Evaluation: 01/04/18 Time of Evaluation: 14:00 - Subjective Subjective: NO CHEST PAIN OR SOB Objective - Vital Signs/Intake and Output Vital Signs (last 24 hours): Temp Pulse Resp BP Pulse Ox 97.9 F 60 20 102/65 98 01/04/18 10:00 01/04/18 10:00 01/04/18 10:00 01/04/18 10:00 01/04/18 10:00 - Medications Medications: Current Medications Albuterol/Ipratropium (Duoneb 3 Mg/0.5 Mg (3 Ml) Ud) 3 ml IH Q6 PRN PRN Reason: Wheezing Aspirin (Ecotrin) 81 mg PO DAILY [facility] Last Admin: 01/04/18 08:41 Dose: 81 mg Atorvastatin Calcium (Lipitor) 20 mg PO DAILY [facility] Last Admin: 01/04/18 08:42 Dose: 20 mg Clopidogrel Bisulfate (Plavix) 75 mg PO DAILY [facility] Last Admin: 01/04/18 08:42 Dose: 75 mg Dextrose (Dextrose 50% Inj) 0 ml IV STAT PRN; Protocol PRN Reason: Hypoglycemia Protocol Dextrose (Glutose 15) 0 gm PO ONCE PRN; Protocol PRN Reason: Hypoglycemia Protocol Digoxin (Digoxin) 0.125 mg PO QOTHERDAY [facility] Last Admin: 01/03/18 08:14 Dose: 0.125 mg Enoxaparin Sodium (Lovenox) 40 mg SC DAILY [facility] PRN Reason: Protocol Last Admin: 01/04/18 08:42 Dose: 40 mg Glucagon (Glucagen Diagnostic Kit) 0 mg IM STAT PRN; Protocol PRN Reason: Hypoglycemia Protocol Insulin Human Lispro (Humalog) 0 units SC [facility] PRN Reason: Protocol Last Admin: 01/04/18 11:37 Dose: Not Given Losartan Potassium (Cozaar) 25 mg PO DAILY [facility] Last Admin: 01/04/18 08:39 Dose: 25 mg Metoprolol Succinate (Toprol Xl) 25 mg PO DAILY [facility] Last Admin: 01/04/18 08:43 Dose: 25 mg Sertraline HCl (Zoloft) 50 mg PO DAILY [facility] Last Admin: 01/04/18 08:44 Dose: 50 mg Tamsulosin HCl (Flomax) 0.4 mg PO DAILY [facility] Last Admin: 01/04/18 08:41 Dose: 0.4 mg Tiotropium [place] (Spiriva) 18 mcg INH DAILY [facility] Last Admin: 01/04/18 08:43 Dose: 18 mcg Tramadol HCl (Ultram) 50 mg PO Q6 PRN PRN Reason: Pain, moderate (4-7) Last Admin: 01/04/18 10:45 Dose: 50 mg - Labs Labs: 01/03/18 06:21 01/03/18 06:21 - Respiratory Exam Respiratory Exam: Clear to Ausculation Bilateral - Cardiovascular Exam Cardiovascular Exam: REGULAR RHYTHM, +S1, +S2 - Extremities Exam Extremities Exam: Normal Inspection Assessment and Plan - Assessment and Plan (Free Text) Assessment: DECONDITIONING CAD HYPERTENSION TYPE 2 DM OLD CVA Plan: CONTINUE LOSARTAN, METOPROLOL, ASPIRIN, CLOPIDOGREL, LOVENOX, DIGOXIN AND ATORVASTATIN
[2018-01-05] MEDS: Insulin Lispro (humaLOG) 100 Units/ml Inj SC SCH ×3 (07:41→17:27)
[2018-01-05] MEDS: Tiotropium 18 mcg Cap For Inhalation INH SCH (08:49)
[2018-01-05] MEDS: Metoprolol Succinate 25 mg XL Tab PO SCH (08:51)
[2018-01-05] MEDS: Enoxaparin 40 mg Syringe SC SCH (08:52)
[2018-01-05] MEDS: Digoxin 125 mcg (0.125 mg) Tab PO SCH (08:53)
[2018-01-06] MEDS: Insulin Lispro (humaLOG) 100 Units/ml Inj SC SCH ×3 (06:31→16:12)
[2018-01-06] MEDS: Enoxaparin 40 mg Syringe SC SCH (08:05)
[2018-01-06] MEDS: Tiotropium 18 mcg Cap For Inhalation INH SCH (08:05)
[2018-01-06] MEDS: Metoprolol Succinate 25 mg XL Tab PO SCH (08:06)
--- NOTE | 2018-01-06 10:35 | CP.PCM.PN ---
Subjective - Date & Time of Evaluation Date of Evaluation: 01/06/18 Time of Evaluation: 09:00 - Subjective Subjective: NO CHEST PAIN OR SOB DOING WELL AT REHAB Objective - Vital Signs/Intake and Output Vital Signs (last 24 hours): Temp Pulse Resp BP Pulse Ox 97.5 F L 56 L 20 112/63 99 01/06/18 08:15 01/06/18 08:15 01/06/18 08:15 01/06/18 08:15 01/06/18 08:15 - Medications Medications: Current Medications Albuterol/Ipratropium (Duoneb 3 Mg/0.5 Mg (3 Ml) Ud) 3 ml IH Q6 PRN PRN Reason: Wheezing Aspirin (Ecotrin) 81 mg PO DAILY [facility] Last Admin: 01/06/18 08:05 Dose: 81 mg Atorvastatin Calcium (Lipitor) 20 mg PO DAILY [facility] Last Admin: 01/06/18 08:05 Dose: 20 mg Clopidogrel Bisulfate (Plavix) 75 mg PO DAILY [facility] Last Admin: 01/06/18 08:05 Dose: 75 mg Dextrose (Dextrose 50% Inj) 0 ml IV STAT PRN; Protocol PRN Reason: Hypoglycemia Protocol Dextrose (Glutose 15) 0 gm PO ONCE PRN; Protocol PRN Reason: Hypoglycemia Protocol Digoxin (Digoxin) 0.125 mg PO QOTHERDAY [facility] Last Admin: 01/05/18 08:53 Dose: 0.125 mg Enoxaparin Sodium (Lovenox) 40 mg SC DAILY [facility] PRN Reason: Protocol Last Admin: 01/06/18 08:05 Dose: 40 mg Glucagon (Glucagen Diagnostic Kit) 0 mg IM STAT PRN; Protocol PRN Reason: Hypoglycemia Protocol Insulin Human Lispro (Humalog) 0 units SC AC [facility] PRN Reason: Protocol Last Admin: 01/06/18 06:31 Dose: Not Given Losartan Potassium (Cozaar) 25 mg PO DAILY [facility] Last Admin: 01/06/18 08:05 Dose: 25 mg Metoprolol Succinate (Toprol Xl) 25 mg PO DAILY [facility] Last Admin: 01/06/18 08:06 Dose: 25 mg Sertraline HCl (Zoloft) 50 mg PO DAILY [facility] Last Admin: 01/06/18 08:05 Dose: 50 mg Tamsulosin HCl (Flomax) 0.4 mg PO DAILY [facility] Last Admin: 07/16/18 08:05 Dose: 0.4 mg Tiotropium [place] (Spiriva) 18 mcg INH DAILY [facility] Last Admin: 01/06/18 08:05 Dose: 18 mcg Tramadol HCl (Ultram) 50 mg PO Q6 PRN PRN Reason: Pain, moderate (4-7) Last Admin: 01/06/18 05:19 Dose: 50 mg - Labs Labs: 01/03/18 06:21 01/03/18 06:21 - Respiratory Exam Respiratory Exam: Clear to Ausculation Bilateral - Cardiovascular Exam Cardiovascular Exam: REGULAR RHYTHM, +S1, +S2 - Extremities Exam Extremities Exam: Normal Inspection Assessment and Plan - Assessment and Plan (Free Text) Assessment: CAD WITH RECENT STEMI-CHEST PAIN FREE AND SYMPTOMATIC HYPERTENSION HYPERLIPIDEMIA OLD CVA MS Plan: CONTINUE METOPROLOL, LOSARTAN, ASPIRIN, CLOPIDOGREL, LOVENOX AND ATORVASTATIN CONTINUE SUBACUTE REHAB
[2018-01-07] MEDS: Insulin Lispro (humaLOG) 100 Units/ml Inj SC SCH ×3 (06:44→17:02)
[2018-01-07] MEDS: Tiotropium 18 mcg Cap For Inhalation INH SCH (08:31)
[2018-01-07] MEDS: Metoprolol Succinate 25 mg XL Tab PO SCH (08:40)
[2018-01-07] MEDS: Enoxaparin 40 mg Syringe SC SCH (08:41)
[2018-01-07] MEDS: Digoxin 125 mcg (0.125 mg) Tab PO SCH (08:41)
--- NOTE | 2018-01-07 17:05 | CP.PCM.PN ---
Subjective - Date & Time of Evaluation Date of Evaluation: 01/07/18 Time of Evaluation: 11:37 - Subjective Subjective: no cp no sob doing well Objective - Vital Signs/Intake and Output Vital Signs (last 24 hours): Temp Pulse Resp BP Pulse Ox 98.4 F 67 20 116/60 98 01/07/18 15:58 01/07/18 15:58 01/07/18 15:58 01/07/18 15:58 01/07/18 15:58 - Medications Medications: Current Medications Albuterol/Ipratropium (Duoneb 3 Mg/0.5 Mg (3 Ml) Ud) 3 ml IH Q6 PRN PRN Reason: Wheezing Aspirin (Ecotrin) 81 mg PO DAILY [facility] Last Admin: 01/07/18 08:41 Dose: 81 mg Atorvastatin Calcium (Lipitor) 20 mg PO DAILY [facility] Last Admin: 01/07/18 08:41 Dose: 20 mg Clopidogrel Bisulfate (Plavix) 75 mg PO DAILY [facility] Last Admin: 01/07/18 08:40 Dose: 75 mg Dextrose (Dextrose 50% Inj) 0 ml IV STAT PRN; Protocol PRN Reason: Hypoglycemia Protocol Dextrose (Glutose 15) 0 gm PO ONCE PRN; Protocol PRN Reason: Hypoglycemia Protocol Digoxin (Digoxin) 0.125 mg PO QOTHERDAY [facility] Last Admin: 01/07/18 08:41 Dose: 0.125 mg Enoxaparin Sodium (Lovenox) 40 mg SC DAILY [facility] PRN Reason: Protocol Last Admin: 01/07/18 08:41 Dose: 40 mg Glucagon (Glucagen Diagnostic Kit) 0 mg IM STAT PRN; Protocol PRN Reason: Hypoglycemia Protocol Insulin Human Lispro (Humalog) 0 units SC [facility] PRN Reason: Protocol Last Admin: 01/07/18 11:32 Dose: 1 units Losartan Potassium (Cozaar) 25 mg PO DAILY [facility] Last Admin: 01/07/18 08:31 Dose: 25 mg Metoprolol Succinate (Toprol Xl) 25 mg PO DAILY [facility] Last Admin: 01/07/18 08:40 Dose: 25 mg Sertraline HCl (Zoloft) 50 mg PO DAILY [facility] Last Admin: 01/07/18 08:39 Dose: 50 mg Tamsulosin HCl (Flomax) 0.4 mg PO DAILY [facility] Last Admin: 01/07/18 08:40 Dose: 0.4 mg Tiotropium [place] (Spiriva) 18 mcg INH DAILY [facility] Last Admin: 01/07/18 08:31 Dose: 18 mcg Tramadol HCl (Ultram) 50 mg PO Q6 PRN PRN Reason: Pain, moderate (4-7) Last Admin: 01/07/18 11:35 Dose: 50 mg - Labs Labs: 01/03/18 06:21 01/03/18 06:21 - Constitutional Appears: Well, Non-toxic, No Acute Distress - Head Exam Head Exam: ATRAUMATIC, NORMAL INSPECTION - Respiratory Exam Respiratory Exam: Clear to Ausculation Bilateral, NORMAL BREATHING PATTERN. absent: Accessory Muscle Use, Rales, Rhonchi, Wheezes - Cardiovascular Exam Cardiovascular Exam: REGULAR RHYTHM, +S1, +S2 - GI/Abdominal Exam GI & Abdominal Exam: Soft, Normal Bowel Sounds. absent: Tenderness - Neurological Exam Neurological Exam: Alert, Awake, Oriented x3 Assessment and Plan - Assessment and Plan (Free Text) Assessment: 72 yo male with history of COPD, DM, HTN and CAD with 3 PCI (refused cardiac cath earlier this year) came in with chest pain radiating to the right upper back accompanied with SOB. One Troponin was positive and ECHO showed Akinesia/ Hypokinesia with EF at 20%. Patient again refused cardiac cath. He received therapeutic anticoagulation and was sent to TCU for rehab and to continue management. 1. NSTEMI No further cp reported by patient Serial EKGs- patient has old T wave inversions I , AVL, new t wave flattening v2 and deep t wave inversions in v3-6 suggesting ischemia refused cardiac cath received therapeutic dose of Lovenox for 5 days cont ASA, Plavix, Statin, BB and Losartan 2. DM II Regular Insulin sliding scale according to accucheck 3. COPD, stable cont Duoneb and Spiriva 4. Cardiomyopathy refused any further cardiac work up decrease Digoxin to q other day due to bradycardia cont BB and ARB 5. Anxiety/depression cont Zoloft 6. Physical Deconditioning continue PT 7. DVT prophylaxis on Lovenox
[2018-01-08] MEDS: Insulin Lispro (humaLOG) 100 Units/ml Inj SC SCH ×3 (06:36→16:57)
[2018-01-08] MEDS: Tiotropium 18 mcg Cap For Inhalation INH SCH (09:06)
--- NOTE | 2018-01-08 09:08 | CP.PCM.PN ---
Subjective - Date & Time of Evaluation Date of Evaluation: 01/08/18 Time of Evaluation: 08:00 - Subjective Subjective: NO CHEST PAIN OR SOB DOING WELL WITH PT Objective - Vital Signs/Intake and Output Vital Signs (last 24 hours): Temp Pulse Resp BP Pulse Ox 98.1 F 64 20 112/68 95 01/08/18 08:36 01/08/18 08:36 01/08/18 08:36 01/08/18 08:36 01/08/18 08:36 - Medications Medications: Current Medications Albuterol/Ipratropium (Duoneb 3 Mg/0.5 Mg (3 Ml) Ud) 3 ml IH Q6 PRN PRN Reason: Wheezing Aspirin (Ecotrin) 81 mg PO DAILY [facility] Last Admin: 01/07/18 08:41 Dose: 81 mg Atorvastatin Calcium (Lipitor) 20 mg PO DAILY [facility] Last Admin: 01/07/18 08:41 Dose: 20 mg Clopidogrel Bisulfate (Plavix) 75 mg PO DAILY [facility] Last Admin: 01/07/18 08:40 Dose: 75 mg Dextrose (Dextrose 50% Inj) 0 ml IV STAT PRN; Protocol PRN Reason: Hypoglycemia Protocol Dextrose (Glutose 15) 0 gm PO ONCE PRN; Protocol PRN Reason: Hypoglycemia Protocol Digoxin (Digoxin) 0.125 mg PO QOTHERDAY [facility] Last Admin: 01/07/18 08:41 Dose: 0.125 mg Enoxaparin Sodium (Lovenox) 40 mg SC DAILY [facility] PRN Reason: Protocol Last Admin: 01/07/18 08:41 Dose: 40 mg Glucagon (Glucagen Diagnostic Kit) 0 mg IM STAT PRN; Protocol PRN Reason: Hypoglycemia Protocol Insulin Human Lispro (Humalog) 0 units SC AC [facility] PRN Reason: Protocol Last Admin: 01/08/18 06:36 Dose: 1 units Losartan Potassium (Cozaar) 25 mg PO DAILY [facility] Last Admin: 01/07/18 08:31 Dose: 25 mg Metoprolol Succinate (Toprol Xl) 25 mg PO DAILY [facility] Last Admin: 01/07/18 08:40 Dose: 25 mg Sertraline HCl (Zoloft) 50 mg PO DAILY [facility] Last Admin: 01/07/18 08:39 Dose: 50 mg Tamsulosin HCl (Flomax) 0.4 mg PO DAILY [facility] Last Admin: 01/07/18 08:40 Dose: 0.4 mg Tiotropium [place] (Spiriva) 18 mcg INH DAILY [facility] Last Admin: 01/07/18 08:31 Dose: 18 mcg Tramadol HCl (Ultram) 50 mg PO Q6 PRN PRN Reason: Pain, moderate (4-7) Last Admin: 01/07/18 21:29 Dose: 50 mg - Labs Labs: 01/03/18 06:21 01/03/18 06:21 - Respiratory Exam Respiratory Exam: Clear to Ausculation Bilateral - Cardiovascular Exam Cardiovascular Exam: REGULAR RHYTHM, +S1, +S2 - Extremities Exam Extremities Exam: Normal Inspection Assessment and Plan - Assessment and Plan (Free Text) Assessment: DECONDITIONING CAD HYPERTENSION HYPERLIPIDEMIA COPD Plan: CONTINUE SUBACUTE REHAB-PATIENT HAS BEEN EXTENDED UNTIL SATURDAY CONTINUE METOPROLOL, LOSARTAN, DIGOXIN, ATORVASTATIN, ASPIRIN, CLOPIDOGREL, LOVENOX
[2018-01-08] MEDS: Metoprolol Succinate 25 mg XL Tab PO SCH (09:09)
[2018-01-08] MEDS: Enoxaparin 40 mg Syringe SC SCH (09:10)
[2018-01-08] MEDS ORDERED: Bisacodyl 5mg EC Tab PO ONE (11:07)
[2018-01-09] MEDS: Insulin Lispro (humaLOG) 100 Units/ml Inj SC SCH ×3 (06:36→17:01)
[2018-01-09] MEDS: Digoxin 125 mcg (0.125 mg) Tab PO SCH (08:29)
[2018-01-09] MEDS: Tiotropium 18 mcg Cap For Inhalation INH SCH (08:29)
[2018-01-09] MEDS: Metoprolol Succinate 25 mg XL Tab PO SCH (08:29)
[2018-01-09] MEDS: Enoxaparin 40 mg Syringe SC SCH (08:31)
[2018-01-09 08:32] VITALS: PULSE 57
[2018-01-10] MEDS: Insulin Lispro (humaLOG) 100 Units/ml Inj SC SCH (07:09)
[2018-01-10 08:47] VITALS: BP 122/64; PULSE 62; TEMP 98.2; O2SAT 98
--- NOTE | 2018-01-10 09:06 | CP.PCM.PN ---
Subjective - Date & Time of Evaluation Date of Evaluation: 01/10/18 Time of Evaluation: 09:00 - Subjective Subjective: NO COMPLAINTS NO CHEST PAIN OR SOB IMPROVED WITH PHYSICAL THERAPY Objective - Vital Signs/Intake and Output Vital Signs (last 24 hours): Temp Pulse Resp BP Pulse Ox 98.2 F 62 20 122/64 98 01/10/18 08:46 01/10/18 08:46 01/10/18 08:46 01/10/18 08:46 01/10/18 08:46 - Medications Medications: Current Medications Albuterol/Ipratropium (Duoneb 3 Mg/0.5 Mg (3 Ml) Ud) 3 ml IH Q6 PRN PRN Reason: Wheezing Aspirin (Ecotrin) 81 mg PO DAILY [facility] Last Admin: 01/09/18 08:29 Dose: 81 mg Atorvastatin Calcium (Lipitor) 20 mg PO DAILY [facility] Last Admin: 01/09/18 08:31 Dose: 20 mg Clopidogrel Bisulfate (Plavix) 75 mg PO DAILY [facility] Last Admin: 01/09/18 08:28 Dose: 75 mg Dextrose (Dextrose 50% Inj) 0 ml IV STAT PRN; Protocol PRN Reason: Hypoglycemia Protocol Dextrose (Glutose 15) 0 gm PO ONCE PRN; Protocol PRN Reason: Hypoglycemia Protocol Digoxin (Digoxin) 0.125 mg PO QOTHERDAY [facility] Last Admin: 01/09/18 08:29 Dose: 0.125 mg Enoxaparin Sodium (Lovenox) 40 mg SC DAILY [facility] PRN Reason: Protocol Last Admin: 01/09/18 08:31 Dose: 40 mg Glucagon (Glucagen Diagnostic Kit) 0 mg IM STAT PRN; Protocol PRN Reason: Hypoglycemia Protocol Insulin Human Lispro (Humalog) 0 units SC AC [facility] PRN Reason: Protocol Last Admin: 01/10/18 07:09 Dose: Not Given Losartan Potassium (Cozaar) 25 mg PO DAILY [facility] Last Admin: 01/09/18 08:29 Dose: 25 mg Metoprolol Succinate (Toprol Xl) 25 mg PO DAILY [facility] Last Admin: 01/09/18 08:29 Dose: 25 mg Sertraline HCl (Zoloft) 50 mg PO DAILY [facility] Last Admin: 01/09/18 08:28 Dose: 50 mg Tamsulosin HCl (Flomax) 0.4 mg PO DAILY [facility] Last Admin: 01/09/18 08:28 Dose: 0.4 mg Tiotropium [place] (Spiriva) 18 mcg INH DAILY [facility] Last Admin: 01/09/18 08:29 Dose: 18 mcg Tramadol HCl (Ultram) 50 mg PO Q6 PRN PRN Reason: Pain, moderate (4-7) Last Admin: 01/09/18 21:34 Dose: 50 mg - Labs Labs: 01/03/18 06:21 01/03/18 06:21 - Respiratory Exam Respiratory Exam: Clear to Ausculation Bilateral - Cardiovascular Exam Cardiovascular Exam: REGULAR RHYTHM, +S1, +S2 - Extremities Exam Extremities Exam: Normal Inspection Assessment and Plan - Assessment and Plan (Free Text) Assessment: DECONDITIONING-IMPROVED CAD HYPERTENSION HYPERLIPIDEMIA Plan: CONTINUE METOPROLOL, LOSARTAN, DIGOXIN, ATORVASTATIN, ASPIRIN AND CLOPIDOGREL FOR DISCHARGE
[2018-01-10] MEDS: Enoxaparin 40 mg Syringe SC SCH (09:14)
[2018-01-10] MEDS: Metoprolol Succinate 25 mg XL Tab PO SCH (09:16)
[2018-01-10] MEDS: Tiotropium 18 mcg Cap For Inhalation INH SCH (09:16)
--- NOTE | 2018-01-10 10:28 | CP.PCM.DIS ---
Provider - Provider Date of Admission: 12/30/17 16:53 Attending physician: Miguel Childers MD Consults: Dr House Time Spent in preparation of Discharge (in minutes): 25 Diagnosis - Discharge Diagnosis (1) NSTEMI (non-ST elevated myocardial infarction) Status: Acute Comment: refused cardiac cath and further management. continue ASA, Plavix, Atorvastatin, Metoprolol and Losartan (2) DM2 (diabetes mellitus, type 2) Status: Chronic Priority: High Comment: BS controlled without maintenance diabetic medication. diabetic diet (3) COPD (chronic obstructive pulmonary disease) Status: Chronic Comment: continue Duoneb as needed and Spiriva (4) Cardiomyopathy Status: Acute Comment: continue Digoxin, Metoprolol and Losartan. refused further cardiac work up (5) Physical deconditioning Status: Acute Priority: High Comment: did well with therapy Hospital Course - Lab Results Lab Results: Most Recent Lab Values WBC 7.3 K/uL (4.8-10.8) 01/03/18 06:21 RBC 3.75 Mil/uL (4.40-5.90) L 01/03/18 06:21 Hgb 12.0 g/dL (12.0-18.0) 01/03/18 06:21 Hct 35.7 % (35.0-51.0) 01/03/18 06:21 MCV 95.1 fl (80.0-94.0) H 01/03/18 06:21 MCH 32.1 pg (27.0-31.0) H 01/03/18 06:21 MCHC 33.7 g/dL (33.0-37.0) 01/03/18 06:21 RDW 14.5 % (11.5-14.5) 01/03/18 06:21 Plt Count 211 K/uL (130-400) 01/03/18 06:21 Sodium 136 mmol/l (132-148) 01/03/18 06:21 Potassium 4.8 MMOL/L (3.6-5.0) 01/03/18 06:21 Chloride 102 mmol/L (98-107) 01/03/18 06:21 Carbon Dioxide 25 mmol/L (22-30) 01/03/18 06:21 Anion Gap 14 (10-20) 01/03/18 06:21 BUN 20 mg/dl (9-20) 01/03/18 06:21 Creatinine 1.0 mg/dl (0.8-1.5) 01/03/18 06:21 Est GFR ( Amer) > 60 01/03/18 06:21 Est GFR (Non-Af Amer) > 60 01/03/18 06:21 POC Glucose (mg/dL) 133 mg/dL (65-110) H 01/10/18 06:09 Random Glucose 141 mg/dL (75-110) H 01/03/18 06:21 Calcium 9.0 mg/dL (8.4-10.2) 01/03/18 06:21 - Hospital Course Hospital Course: 72 yo male with history of COPD, DM, HTN and CAD with 3 PCI (refused cardiac cath earlier this year) came in with chest pain radiating to the right upper back accompanied with SOB. One Troponin was positive and ECHO showed Akinesia/ Hypokinesia with EF at 20%. Patient again refused cardiac cath. He received therapeutic anticoagulation and was sent to TCU for rehab and to continue management. Patient did well and now ready for discharge to home. Discharge Exam - Head Exam Head Exam: ATRAUMATIC, NORMAL INSPECTION Discharge Plan - Follow Up Plan Condition: GOOD Disposition: HOME/ ROUTINE
== END 2018-01-10 10:40 | disposition home health service (06) | DRG 281 ==
LOC: H.TCU 16:53
PROC: F07M6FZ Therapeutic Exercise Treatment of Musculoskeletal System - Whole Body using Assistive, Adaptive, Supportive or Protective Equipment (ICD-10-PCS; principal; 2017-12-30)
PROC: F08Z4FZ Home Management Treatment using Assistive, Adaptive, Supportive or Protective Equipment (ICD-10-PCS; 2017-12-30)
DX: I21.4 Non-ST elevation (NSTEMI) myocardial infarction (principal); I42.9 Cardiomyopathy, unspecified; I25.10 Atherosclerotic heart disease of native coronary artery without angina pectoris; I25.2 Old myocardial infarction; I50.9 Heart failure, unspecified; J43.9 Emphysema, unspecified; Z86.73 Personal history of transient ischemic attack (TIA), and cerebral infarction without residual deficits; Z87.01 Personal history of pneumonia (recurrent); Z87.891 Personal history of nicotine dependence; Z90.49 Acquired absence of other specified parts of digestive tract; Z95.5 Presence of coronary angioplasty implant and graft; D64.9 Anemia, unspecified; F45.9 Somatoform disorder, unspecified; M19.90 Unspecified osteoarthritis, unspecified site; E11.9 Type 2 diabetes mellitus without complications; E78.00 Pure hypercholesterolemia, unspecified; E78.5 Hyperlipidemia, unspecified; F32.9 Major depressive disorder, single episode, unspecified; F41.9 Anxiety disorder, unspecified; G35 Multiple sclerosis; I11.0 Hypertensive heart disease with heart failure; Z88.6 Allergy status to analgesic agent; Z88.1 Allergy status to other antibiotic agents; R00.1 Bradycardia, unspecified

== ENCOUNTER 2018-03-21 20:29 | Emergency (ER) | payer MEDICARE ==
[2018-03-21 20:29] VITALS: PULSE 57; BMI 18.5
[2018-03-21 20:36] VITALS: BP 150/89; PULSE 70; RESP 19; TEMP 97.5; O2SAT 98
[2018-03-21 21:37] LABS: BASO # 0.1 K/uL (0.0-0.2); BASO % 0.9 % (0.0-2.0); EOS # 0.2 K/uL (0.0-0.7); EOS % 2.3 % (0.0-4.0); HEMOGLOBIN 13.5 g/dL (12.0-18.0); LYMPH # 1.7 K/uL (1.0-4.3); LYMPH % 21.1 % (20.0-40.0); MEAN CELL VOLUME 97.9 fl (80.0-94.0); MEAN CORPUSCULAR HEMOGLOBIN 31.9 pg (27.0-31.0); MEAN CORPUSCULAR HGB CONC 32.6 g/dL (33.0-37.0); MEAN PLATELET VOLUME 8.1 fl (7.2-11.7); MONO # 0.7 K/uL (0.0-0.8); MONO % 8.1 % (0.0-10.0); NEUT # 5.5 K/uL (1.8-7.0); NEUT % 67.6 % (50.0-75.0); NRBC % 0.2 % (0.0-0.0); RBC 4.23 Mil/uL (4.40-5.90); RED CELL DISTRIBUTION WIDTH 14.4 % (11.5-14.5); WHITE BLOOD COUNT 8.1 K/uL (4.8-10.8)
[2018-03-21 21:39] LABS: BLOOD UREA NITROGEN 8 mg/dl (9-20); CALCIUM 9.1 mg/dL (8.4-10.2); GFR NON-AFRICAN AMERICAN > 60
[2018-03-21 21:51] LABS: CK-MB 2.87 ng/mL (0.0-3.38)
--- NOTE | 2018-03-21 22:20 | ED PDOC ---
HPI: General Adult Time Seen by Provider: 03/21/18 20:39 Chief Complaint (Nursing): Trauma Chief Complaint (Provider): chronic leg pain and back pain History Per: Patient History/Exam Limitations: no limitations Onset/Duration Of Symptoms: Days (chronic) Additional Complaint(s): Xenia Blakely is a 72 year old male, with a past medical history of MS, COPD, CAD, CHF, diabetes and HTN, who presents to the emergency department with weakness and states because of his MS his legs are restless and increasing falls at home. Patient states each time he was able to catch himself by grabbing to furniture. He reports a worsening chronic leg pain and back pain but denies any head injuries, chest pain or shortness of breath currently. No further medical complaints. PMD: None provided. Past Medical History Reviewed: Historical Data, Nursing Documentation, Vital Signs Vital Signs: Last Vital Signs Temp 97.5 F L 03/21/18 20:32 Pulse 70 03/21/18 20:32 Resp 19 03/21/18 20:32 BP 150/89 03/21/18 20:32 Pulse Ox 98 03/21/18 20:32 - Medical History PMH: Anemia, Anxiety, Arthritis, Asthma, CAD, Cardia Arrhythmia, CHF, COPD, CVA, Depression, Diabetes, Emphysema, Fractures (bilateral feet), HTN, Hypercholesterolemia, Hyperlipidemia, Multiple Sclerosis, Pneumonia, TIA Denies: Bronchitis, HIV, Chronic Kidney Disease - Surgical History Surgical History: Cholecystectomy, Coronary Stent (x3) Denies: CABG - Family History Family History: States: Unknown Family Hx, Diabetes - Home Medications Home Medications: Ambulatory Orders Medication Instructions Recorded Aspirin [Ecotrin] 81 mg PO DAILY #100 tabec 09/18/17 Atorvastatin [Lipitor] 20 mg PO DAILY #30 tab 09/18/17 Clopidogrel [Plavix] 75 mg PO DAILY #30 tab 09/18/17 Metoprolol Succinate XL [Toprol XL] 25 mg PO DAILY #30 tab 09/18/17 Sertraline [Zoloft] 50 mg PO DAILY #30 tab 09/18/17 Tamsulosin [Flomax] 0.4 mg PO DAILY #30 cap 09/18/17 Tiotropium [Spiriva] 18 mcg INH DAILY #100 cap 09/18/17 Albuterol/Ipratropium [Duoneb 3 3 ml IH Q6 PRN #30 neb 10/16/17 mg/0.5 mg (3 ml) UD] traMADol [Ultram] 50 mg PO Q6 PRN #8 tab 11/28/17 Digoxin 0.125 mg PO QOTHERDAY tab 12/30/17 Losartan [Cozaar] 25 mg PO DAILY #30 tab 12/30/17 - Allergies Allergies/Adverse Reactions: Allergies Allergy/AdvReac Type Severity Reaction Status Date / Time ampicillin Allergy RASH Verified 12/30/17 15:58 codeine AdvReac HEADACHE Verified 12/30/17 15:58 Review of Systems ROS Statement: Except As Marked, All Systems Reviewed And Found Negative Constitutional: Positive for: Weakness Cardiovascular: Negative for: Chest Pain Respiratory: Negative for: Shortness of Breath Musculoskeletal: Positive for: Back Pain (chronic), Leg Pain (chronic) Physical Exam - Reviewed Nursing Documentation Reviewed: Yes Vital Signs Reviewed: Yes - Physical Exam Appears: Positive for: No Acute Distress Head Exam: Positive for: ATRAUMATIC, NORMOCEPHALIC Skin: Positive for: Normal Color, Warm, Dry Eye Exam: Positive for: Normal appearance, EOMI, PERRL Neck: Positive for: Painless ROM Cardiovascular/Chest: Positive for: Regular Rate, Rhythm. Negative for: Murmur Respiratory: Positive for: Normal Breath Sounds. Negative for: Respiratory Distress Gastrointestinal/Abdominal: Positive for: Normal Exam, Soft. Negative for: Tenderness, Guarding, Rebound Back: Positive for: Normal Inspection. Negative for: L CVA Tenderness, R CVA Tenderness, Vertebral Tenderness Extremity: Positive for: Normal ROM (upper and lower extremities). Negative for: Deformity, Swelling Neurologic/Psych: Positive for: Alert, exhibit carpenter II-XII (intact), Oriented, Cerebellar Tests (normal), Gait (steady). Negative for: Motor/Sensory Deficits, Aphasia, Facial Droop - Laboratory Results Result Diagrams: 03/21/18 21:26 03/21/18 21:26 - ECG O2 Sat by Pulse Oximetry: 98 (RA) Pulse Ox Interpretation: Normal Medical Decision Making Medical Decision Making: Time: 20:39 A/P: 72 y/o male with history of MS, COPD, CAD, CHF, DM, and HTN presenting with weakness and falls due to MS. Currently patient is very well appearing with stable vital signs. Will check blood work, EKG and reevaluate for any acute pathology. Initial Plan: --EKG --Alcohol serum --BMP --CK-MB --Urine drug screen --Troponin I --CBC w/ differential --Chest portable [RAD] --Ultram 50 mg PO --Reevaluation 1030PM --Patient has no acute pathology, no acute findings --Patient walked stably with walker --Patient was seen by Dr. Lana Corona at bedside, encouraged to followup with Dr. Peng --- -- Scribe Attestation: Documented by Elian Mckeon, acting as a scribe for Kike Mancilla MD. Provider Scribe Attestation: All medical record entries made by the Scribe were at my direction and pe rsonally dictated by me. I have reviewed the chart and agree that the record accurately reflects my personal performance of the history, physical exam, medical decision making, and the department course for this patient. I have also personally directed, reviewed, and agree with the discharge instructions and disposition. Disposition - Clinical Impression Clinical Impression: Weakness - Disposition Referrals: Maximo House MD [Family Provider] - Disposition: Routine/Home Disposition Time: 22:30 Condition: STABLE Instructions: Weakness (ED) Forms: [employer] (Malagasy)
--- NOTE | 2018-03-21 23:34 | CP.PCM.CON ---
History of Present Illness - History of Present Illness History of Present Illness: Reason for consult: weakness HPI: 72 yo male with history of COPD, DM, HTN, MS, and CAD with 3 PCI (refused cardiac cath earlier this year) presented to the ED with complaints of reported fall at the home today due to feeling unsteady, and complains he had back pain. In ED he received Ultram x1 and states his pain is improved. Patient was evaluated with ED physician, and appears to be at baseline, is able to ambulate with his cane. Labs were all within normal limits, patient is hemodynamically stable, in no acute distress. Patient also states he feels steady and stable to return home with close follow up with his primary care physician who knows him very well, Dr. House. Pt requesting transport home. ROS: per HPI all other systems reviewed and negative Past Patient History - Infectious Disease Hx of Infectious Diseases: None - Tetanus Immunizations Tetanus Immunization: Unknown - Past Medical History & Family History Past Medical History?: Yes - Past Social History Smoking Status: Light Smoker < 10 Cigarettes Daily - CARDIAC Hx Cardia Arrhythmia: Yes Hx Congestive Heart Failure: Yes Hx Hypercholesterolemia: Yes Hx Hypertension: Yes - PULMONARY Hx Asthma: Yes Hx Bronchitis: No Hx Chronic Obstructive Pulmonary Disease (COPD): Yes Hx Emphysema: Yes Hx Pneumonia: Yes - NEUROLOGICAL Hx Multiple Sclerosis: Yes Hx Transient Ischemic Attacks (TIA): Yes - HEENT Hx HEENT Problems: No - RENAL Hx Chronic Kidney Disease: No - ENDOCRINE/METABOLIC Hx Diabetes Mellitus Type 2: Yes - HEMATOLOGICAL/ONCOLOGICAL Hx Anemia: Yes Hx Human Immunodeficiency Virus (HIV): No - INTEGUMENTARY Hx Dermatological Problems: No - MUSCULOSKELETAL/RHEUMATOLOGICAL Hx Arthritis: Yes Hx Fractures: Yes (bilateral feet) - GASTROINTESTINAL Hx Gastrointestinal Disorders: No - GENITOURINARY/GYNECOLOGICAL Hx Genitourinary Disorders: No - PSYCHIATRIC Hx Anxiety: Yes Hx Depression: Yes - SURGICAL HISTORY Hx Cholecystectomy: Yes Hx Coronary Artery Bypass Graft: No Hx Coronary Stent: Yes (x3) - ANESTHESIA Hx Anesthesia: Yes Hx Anesthesia Reactions: No Hx Malignant Hyperthermia: No Meds Allergies/Adverse Reactions: Allergies Allergy/AdvReac Type Severity Reaction Status Date / Time ampicillin Allergy RASH Verified 12/30/17 15:58 codeine AdvReac HEADACHE Verified 12/30/17 15:58 Physical Exam - Constitutional Appears: Non-toxic, No Acute Distress - Head Exam Head Exam: ATRAUMATIC, NORMOCEPHALIC - Eye Exam Eye Exam: EOMI, Normal appearance, PERRL Pupil Exam: NORMAL ACCOMODATION - ENT Exam ENT Exam: Mucous Membranes Moist, Normal Exam - Neck Exam Neck exam: Positive for: Full Rom, Normal Inspection - Respiratory Exam Respiratory Exam: Clear to Auscultation Bilateral, NORMAL BREATHING PATTERN - Cardiovascular Exam Cardiovascular Exam: RRR, +S1, +S2 - GI/Abdominal Exam GI & Abdominal Exam: Normal Bowel Sounds, Soft. absent: Organomegaly, Tenderness - Extremities Exam Extremities exam: Positive for: normal capillary refill, pedal pulses present. Negative for: calf tenderness - Back Exam Back exam: absent: CVA tenderness (L), CVA tenderness (R) - Neurological Exam Neurological exam: Alert, Oriented x3 Additional comments: normal strength testing patient able to ambulate at baseline with cane - Psychiatric Exam Psychiatric exam: Normal Affect, Normal Mood - Skin Skin Exam: Dry, Normal Color Results - Vital Signs Recent Vital Signs: Last Vital Signs Temp 97.5 F L 03/21/18 20:32 Pulse 70 03/21/18 20:32 Resp 19 03/21/18 20:32 BP 150/89 03/21/18 20:32 Pulse Ox 98 03/21/18 23:27 - Labs Result Diagrams: 03/21/18 21:26 03/21/18 21:26 Labs: Laboratory Results - last 24 hr 03/21/18 03/21/18 21:26 21:26 WBC 8.1 RBC 4.23 L Hgb 13.5 Hct 41.4 MCV 97.9 H D MCH 31.9 H MCHC 32.6 L RDW 14.4 Plt Count 226 MPV 8.1 Neut % (Auto) 67.6 Lymph % (Auto) 21.1 [place] % (Auto) 8.1 Eos % (Auto) 2.3 Baso % (Auto) 0.9 Neut # (Auto) 5.5 Lymph # (Auto) 1.7 [place] # (Auto) 0.7 Eos # (Auto) 0.2 Baso # (Auto) 0.1 Sodium 140 Potassium 3.8 Chloride 109 H Carbon Dioxide 23 Anion Gap 12 BUN 8 L Creatinine 0.6 L Est GFR ( Amer) > 60 Est GFR (Non-Af Amer) > 60 Random Glucose 131 H Calcium 9.1 CK-MB (Mass) 2.87 Troponin I 0.0460 Alcohol, Quantitative < 10 Assessment & Plan - Assessment and Plan (Free Text) Plan: 72 yo male with history of COPD, DM, HTN, MS, and CAD with 3 PCI (refused cardiac cath earlier this year) presented to the ED with complaints of reported fall at the home today due to feeling unsteady, and complains he had back pain. In ED he received Ultram x1 and states his pain is improved. Patient was evaluated with ED physician, and appears to be at baseline, is able to ambulate with his cane. Labs were all within normal limits, patient is hemodynamically stable, in no acute distress. Patient also states he feels steady and stable to return home with close follow up with his primary care physician who knows him very well, Dr. House. Weakness Patient ambulating at baseline with cane Pain is improved after dose of Ultram All labs within normal limits HD stable Pt to follow up with Dr. House early this week.
--- NOTE | 2018-03-22 09:17 | CARD ---
APPROVED REPORT Date of service: 03/21/2018 EKG Measurement Heart [id number] <Conclusion> Normal sinus rhythm Right bundle branch block Left anterior fascicular block Bifascicular block Septal infarct, age undetermined T wave abnormality, consider lateral ischemia Abnormal ECG
--- NOTE | 2018-03-22 09:39 | RAD ---
Date of service: 03/21/2018 HISTORY: weakness COMPARISON: Chest radiograph dated 12/25/2017. FINDINGS: LUNGS: No active pulmonary disease. PLEURA: No significant pleural effusion identified, no pneumothorax apparent. CARDIOVASCULAR: Atherosclerotic aortic calcifications. Cardiomediastinal silhouette within normal limits. OSSEOUS STRUCTURES: Unchanged. VISUALIZED UPPER ABDOMEN: Right upper quadrant surgical clips redemonstrated. OTHER FINDINGS: None. IMPRESSION: No active disease.
== END 2018-03-21 23:36 | disposition home or self-care (01) ==
LOC: H.ER 20:29
DX: R53.1 Weakness (principal)

== ENCOUNTER 2018-03-23 11:29 | Inpatient (IN) | payer MEDICARE ==
[2018-03-23 11:29] VITALS: BMI 18.5
--- NOTE | 2018-03-23 12:43 | ED PDOC ---
Syncope/Near Syncope/Dizziness Chief Complaint (Provider): Weakness History Per: Patient Additional Complaint(s): This is a 72 years old male with hx of COPD, DM, HTN. CAD s/p PCI X3, comes with one hour of chest pain on exertion, radiating to the right upper back and associated with SOB and weakness. He took 2 Aspirins at home without pain relief. No coughing nor palpitation, no fever nor dizziness. <Kelli Smart - Last Filed: 03/23/18 15:07> <Kourtney Light - Last Filed: 03/23/18 19:22> Time Seen by Provider: 03/23/18 12:06 Chief Complaint (Nursing): Weakness/Neurological Deficit Supervising Attending Note - Supervising Attending Note The Documented history was done by the: Physician Negotiator Sales The documented physical exam was done by the: Physician Negotiator Sales - Attestation: I have personally seen and examined this patient.: Yes I have fully participated in the care of the patient.: Yes I have reviewed all pertinent clinical information: Yes <Kourtney Light - Last Filed: 03/23/18 19:22> Past Medical History Reviewed: Historical Data, Nursing Documentation, Vital Signs Vital Signs: Last Vital Signs Temp 98.4 F 03/23/18 11:34 Pulse 96 H 03/23/18 11:34 Resp 20 03/23/18 11:34 BP 137/77 03/23/18 11:34 Pulse Ox 99 03/23/18 11:34 - Medical History PMH: Anemia, Anxiety, Arthritis, Asthma, CAD, Cardia Arrhythmia, CHF, COPD, CVA, Depression, Diabetes, Emphysema, Fractures (bilateral feet), HTN, Hypercholesterolemia, Hyperlipidemia, Multiple Sclerosis, Pneumonia, TIA Denies: Bronchitis, HIV, Chronic Kidney Disease - Surgical History Surgical History: Cholecystectomy, Coronary Stent (x3) Denies: CABG - Family History Family History: States: Unknown Family Hx, Diabetes - Social History Current smoker - smoking cessation education provided: Yes (40 year 3-5 cigarettes a day) Alcohol: None Drugs: Denies <Kelli Smart - Last Filed: 03/23/18 15:07> Vital Signs: Last Vital Signs Temp 99.7 F H 03/23/18 18:51 Pulse 83 03/23/18 18:51 Resp 15 03/23/18 18:51 BP 116/74 03/23/18 18:51 Pulse Ox 97 03/23/18 18:51 <Kourtney Light - Last Filed: 03/23/18 19:22> - Home Medications Home Medications: Ambulatory Orders Medication Instructions Recorded RX: Aspirin [Ecotrin] 81 mg PO DAILY #100 tabec 09/18/17 RX: Atorvastatin [Lipitor] 20 mg PO DAILY #30 tab 09/18/17 RX: Clopidogrel [Plavix] 75 mg PO DAILY #30 tab 09/18/17 RX: Metoprolol Succinate XL 25 mg PO DAILY #30 tab 09/18/17 [Toprol XL] RX: Sertraline [Zoloft] 50 mg PO DAILY #30 tab 09/18/17 RX: Tamsulosin [Flomax] 0.4 mg PO DAILY #30 cap 09/18/17 RX: Tiotropium [Spiriva] 18 mcg INH DAILY #100 cap 09/18/17 RX: Albuterol/Ipratropium [Duoneb 3 ml IH Q6 PRN #30 neb 10/16/17 3 mg/0.5 mg (3 ml) UD] RX: traMADol [Ultram] 50 mg PO Q6 PRN #8 tab 11/28/17 RX: Digoxin 0.125 mg PO QOTHERDAY tab 12/30/17 RX: Losartan [Cozaar] 25 mg PO DAILY #30 tab 12/30/17 - Allergies Allergies/Adverse Reactions: Allergies Allergy/AdvReac Type Severity Reaction Status Date / Time ampicillin Allergy RASH Verified 12/30/17 15:58 codeine AdvReac HEADACHE Verified 12/30/17 15:58 Review of Systems ROS Statement: Except As Marked, All Systems Reviewed And Found Negative Cardiovascular: Positive for: Chest Pain Respiratory: Positive for: Shortness of Breath <Kelli Smart - Last Filed: 03/23/18 15:07> Physical Exam - Reviewed Nursing Documentation Reviewed: Yes Vital Signs Reviewed: Yes - Physical Exam Appears: Positive for: Well, Non-toxic, No Acute Distress Head Exam: Positive for: ATRAUMATIC, NORMAL INSPECTION, NORMOCEPHALIC Skin: Positive for: Normal Color, Warm, DRY Eye Exam: Positive for: EOMI, Normal appearance, PERRL ENT: Positive for: Normal ENT Inspection Neck: Positive for: Normal, Painless ROM Cardiovascular/Chest: Positive for: Regular Rate, Rhythm Respiratory: Positive for: CNT, Normal Breath Sounds Gastrointestinal/Abdominal: Positive for: Normal Exam, Soft Back: Positive for: Normal Inspection Extremity: Positive for: Normal ROM Neurologic/Psych: Positive for: Alert, Oriented <Kelli Smart Last Filed: 03/23/18 15:07> - Laboratory Results Result Diagrams: 03/23/18 13:20 03/23/18 13:20 - ECG O2 Sat by Pulse Oximetry: 99 <Kelli Smart Last Filed: 03/23/18 15:07> - Laboratory Results Result Diagrams: 03/23/18 13:20 03/23/18 13:20 <Kourtney Light - Last Filed: 03/23/18 19:22> Medical Decision Making Medical Decision Making: EKG interpreted and cleared by ED MD CXR: NAD, as read by PALeonie Labs resulted and reviewed Case d/w Dr. Harding, Pt's PMD. Pt admitted to Hopsitalist service. Dr. Childers at bedside for admission <Kelli Smart Last Filed: 03/23/18 15:07> Disposition - Patient ED Disposition Is Patient to be Admitted: Yes - Disposition Disposition Time: 15:09 - Pt Status Changed To: Hospital Disposition Of: Observation <Kelli Smart Last Filed: 03/23/18 15:07> <Kourtney Light - Last Filed: 03/23/18 19:22> - Clinical Impression Clinical Impression: Chest pain - Disposition Condition: STABLE
[2018-03-23 13:30] LABS: BASO # 0.1 K/uL (0.0-0.2); EOS # 0.1 K/uL (0.0-0.7); EOS % 1.4 % (0.0-4.0); HEMOGLOBIN 14.1 g/dL (12.0-18.0); LYMPH # 0.8 K/uL (1.0-4.3); LYMPH % 9.9 % (20.0-40.0); MEAN CELL VOLUME 93.7 fl (80.0-94.0); MEAN CORPUSCULAR HEMOGLOBIN 31.5 pg (27.0-31.0); MEAN CORPUSCULAR HGB CONC 33.6 g/dL (33.0-37.0); MEAN PLATELET VOLUME 8.3 fl (7.2-11.7); MONO # 0.7 K/uL (0.0-0.8); MONO % 8.3 % (0.0-10.0); NEUT # 6.4 K/uL (1.8-7.0); NEUT % 79.4 % (50.0-75.0); PLATELET COUNT 232 K/uL (130-400); RBC 4.49 Mil/uL (4.40-5.90); RED CELL DISTRIBUTION WIDTH 13.9 % (11.5-14.5)
[2018-03-23 13:41] LABS: INR 1.4; PROTHROMBIN TIME 15.1 Seconds (9.8-13.1)
[2018-03-23 13:43] LABS: PARTIAL THROMBOPLASTIN TIME 33.1 Seconds (25.6-37.1)
[2018-03-23 13:44] LABS: ALB/GLOB RATIO 1.2 (1.0-2.1); ALBUMIN 4.1 g/dL (3.5-5.0); ALT/SGPT 21 U/L (21-72); AST/SGOT 30 U/L (17-59); BLOOD UREA NITROGEN 10 mg/dl (9-20); CALCIUM 9.1 mg/dL (8.4-10.2); GFR NON-AFRICAN AMERICAN > 60
[2018-03-23 13:52] LABS: B-TYPE NATRIURETIC PEPTIDE 12600 pg/ml (0-900)
--- NOTE | 2018-03-23 14:15 | RAD ---
Date of service: 03/23/2018 PROCEDURE: CHEST RADIOGRAPH, 1 VIEW HISTORY: cp COMPARISON: Chest radiograph dated 03/21/2018. FINDINGS: LUNGS: Clear. PLEURA: No pneumothorax or pleural fluid seen. CARDIOVASCULAR: Atherosclerotic aortic calcifications. Cardiomediastinal silhouette stably enlarged OSSEOUS STRUCTURES: Unchanged. VISUALIZED UPPER ABDOMEN: Right upper quadrant surgical clips redemonstrated. OTHER FINDINGS: None. IMPRESSION: No active disease.
[2018-03-23 14:41] LABS: LYMPHOCYTE 10 % (20-50); MONOCYTE 8 % (0-10); NEUTROPHIL 82 % (42-75); TOTAL CELLS COUNTED 100
[2018-03-23 14:42] LABS: PLATELET ESTIMATE NORMAL (NORMAL)
[2018-03-23] MEDS ORDERED: Albuterol-Ipratrop 3 mg / 0.5 (3 ml) UD IH PRN (15:32)
--- NOTE | 2018-03-23 15:45 | CP.PCM.HP ---
<Kem Gomes - Last Filed: 03/23/18 16:05> History of Present Illness - History of Present Illness History of Present Illness: Hx taken from patient PMD: Dr House 72 yo male with history of COPD, DM, HTN, RLS and CAD with 3 PCI (refused cardiac cath earlier this year) presented to the ED with complaints of left arm pain since Yesterday that radiated today to left upper back that worsen with exertion. Denies chest wall pain. Patient reported fall at the home 2 d/a due to feeling unsteady, and complains he had back pain. He presented to ED then where he received Ultram x1 and states his pain improved. Patient was evaluated by hospitalist and ED physician at the time and appeared to be at baseline, was able to ambulate with his cane, Labs were all within normal limits, patient was hemodynamically stable, in no acute distress and he requested to be DC home. Patient denies vomiting, nausea, syncope, vision changes. C/O headache to left frontal area since fall. ED course VS stable Labs remarkable for Neg tropx1, ProBnP = 11317 CXR no active disease EKG RBBB PMH: Anemia, Anxiety, Arthritis, Asthma, CAD, Cardia Arrhythmia, CHF, COPD, CVA, Depression, DM II; Emphysema, Fractures (bilateral feet), HTN, HLD; , MS, Pneumonia, TIA PSH: Cholecystectomy, Coronary Stent (x3); Cataract surgery SH: Smokes6-7 Cigarettes daily; No illegal drug use; No Alcohol FH:States: No known family Hx Allergies: Ampicillin; Codeine Present on Admission - Present on Admission Any Indicators Present on Admission: No Review of Systems - Review of Systems All systems: reviewed and no additional remarkable complaints except (Those described on HPI) Past Patient History - Infectious Disease Hx of Infectious Diseases: None - Tetanus Immunizations Tetanus Immunization: Unknown - Past Medical History & Family History Past Medical History?: Yes - Past Social History Alcohol: None Drugs: Denies - CARDIAC Hx Cardia Arrhythmia: Yes Hx Congestive Heart Failure: Yes Hx Hypercholesterolemia: Yes Hx Hypertension: Yes - PULMONARY Hx Asthma: Yes Hx Bronchitis: No Hx Chronic Obstructive Pulmonary Disease (COPD): Yes Hx Emphysema: Yes Hx Pneumonia: Yes - NEUROLOGICAL Hx Multiple Sclerosis: Yes Hx Transient Ischemic Attacks (TIA): Yes - HEENT Hx HEENT Problems: No - RENAL Hx Chronic Kidney Disease: No - ENDOCRINE/METABOLIC Hx Diabetes Mellitus Type 2: Yes - HEMATOLOGICAL/ONCOLOGICAL Hx Anemia: Yes Hx Human Immunodeficiency Virus (HIV): No - INTEGUMENTARY Hx Dermatological Problems: No - MUSCULOSKELETAL/RHEUMATOLOGICAL Hx Arthritis: Yes Hx Fractures: Yes (bilateral feet) - GASTROINTESTINAL Hx Gastrointestinal Disorders: No - GENITOURINARY/GYNECOLOGICAL Hx Genitourinary Disorders: No - PSYCHIATRIC Hx Anxiety: Yes Hx Depression: Yes - SURGICAL HISTORY Hx Cholecystectomy: Yes Hx Coronary Artery Bypass Graft: No Hx Coronary Stent: Yes (x3) - ANESTHESIA Hx Anesthesia: Yes Hx Anesthesia Reactions: No Hx Malignant Hyperthermia: No Meds Allergies/Adverse Reactions: Allergies Allergy/AdvReac Type Severity Reaction Status Date / Time ampicillin Allergy RASH Verified 12/30/17 15:58 codeine AdvReac HEADACHE Verified 12/30/17 15:58 Physical Exam - Constitutional Appears: Non-toxic, Chronically Ill - Head Exam Head Exam: absent: ATRAUMATIC (small excoriation left frontotemporal area) - Eye Exam Eye Exam: EOMI, PERRL - ENT Exam ENT Exam: Mucous Membranes Moist - Respiratory Exam Respiratory Exam: Decreased Breath Sounds, NORMAL BREATHING PATTERN. absent: Rales, Wheezes, Respiratory Distress, Stridor - Cardiovascular Exam Cardiovascular Exam: REGULAR RHYTHM, Systolic Murmur. absent: Gallop - GI/Abdominal Exam GI & Abdominal Exam: Normal Bowel Sounds, Soft. absent: Distended, Guarding, Tenderness - Extremities Exam Extremities exam: Positive for: full ROM, normal capillary refill. Negative for: calf tenderness, pedal edema, tenderness - Neurological Exam Neurological exam: Alert, Oriented x3 - Psychiatric Exam Psychiatric exam: Normal Affect, Normal Mood - Skin Skin Exam: Warm Results - Vital Signs Recent Vital Signs: Last Vital Signs Temp 98.4 F 03/23/18 11:34 Pulse 96 H 03/23/18 11:34 Resp 20 03/23/18 11:34 BP 137/77 03/23/18 11:34 Pulse Ox 99 03/23/18 15:09 - Labs Result Diagrams: 03/23/18 13:20 03/23/18 13:20 Labs: Laboratory Results - last 24 hr 03/23/18 03/23/18 03/23/18 13:20 13:20 13:20 WBC 8.0 RBC 4.49 Hgb 14.1 Hct 42.1 MCV 93.7 D MCH 31.5 H MCHC 33.6 RDW 13.9 Plt Count 232 MPV 8.3 Neut % (Auto) 79.4 H Lymph % (Auto) 9.9 L Robertson % (Auto) 8.3 Eos % (Auto) 1.4 Baso % (Auto) 1.0 Neut # (Auto) 6.4 Lymph # (Auto) 0.8 L Robertson # (Auto) 0.7 Eos # (Auto) 0.1 Baso # (Auto) 0.1 Neutrophils % (Manual) 82 H Lymphocytes % (Manual) 10 L Monocytes % (Manual) 8 Platelet Estimate Normal RBC Morphology Normal PT 15.1 H INR 1.4 APTT 33.1 Sodium 139 Potassium 3.8 Chloride 102 Carbon Dioxide 24 Anion Gap 17 BUN 10 Creatinine 0.7 L Est GFR ( Amer) > 60 Est GFR (Non-Af Amer) > 60 Random Glucose 265 H Calcium 9.1 Total Bilirubin 0.6 AST 30 ALT 21 Alkaline Phosphatase 65 Troponin I 0.1060 NT-Pro-B Natriuret Pep 82617 H Total Protein 7.5 Albumin 4.1 Globulin 3.3 Albumin/Globulin Ratio 1.2 Assessment & Plan - Assessment and Plan (Free Text) Assessment: 72 years old male with hx of COPD, DM, HTN. CAD s/p PCI X3, fefusing cardiac cath earlier this year presents c/o left arm and left upper back pain that worsen on exertion and is admitted to hosp for obs to r/o ACS Chest Pain - R/o ACS - Tropx1 neg - EKG on admission RBBB - CXR no active disease - Consult Dr House cardiology - Serial troponin - Serial EKG S/P Fall/headache - Tylenol/Trmadol for pain - No focal neuro deficit on PE - CT head ordered. F/U results Systolic CHF - Probnp =04709 - Last echo in 12/2017 shows EF =20 with LVH - NO signs of fluid overload a this time - C/W Losartan and BB CAD - C/W ASA/Plavix/lipitor/Metoprolol DM II with Hyperglycemia - Regular Insulin sliding scale according to accucheck - Hypoglycemia protocol - F/U A1c COPD - C/W Spiriva and albuterol Anxiety/depression - c/w Zoloft DVT prophylaxis with Lovenox Code Status: Full <Childers,Miguel D - Last Filed: 03/23/18 17:51> Results - Vital Signs Recent Vital Signs: Last Vital Signs Temp 98.4 F 03/23/18 11:34 Pulse 90 03/23/18 16:00 Resp 18 03/23/18 16:00 BP 137/75 03/23/18 17:20 Pulse Ox 98 03/23/18 16:00 - Labs Result Diagrams: 03/23/18 13:20 03/23/18 13:20 Labs: Laboratory Results - last 24 hr 03/23/18 03/23/18 03/23/18 13:20 13:20 13:20 WBC 8.0 RBC 4.49 Hgb 14.1 Hct 42.1 MCV 93.7 D MCH 31.5 H MCHC 33.6 RDW 13.9 Plt Count 232 MPV 8.3 Neut % (Auto) 79.4 H Lymph % (Auto) 9.9 L Robertson % (Auto) 8.3 Eos % (Auto) 1.4 Baso % (Auto) 1.0 Neut # (Auto) 6.4 Lymph # (Auto) 0.8 L Robertson # (Auto) 0.7 Eos # (Auto) 0.1 Baso # (Auto) 0.1 Neutrophils % (Manual) 82 H Lymphocytes % (Manual) 10 L Monocytes % (Manual) 8 Platelet Estimate Normal RBC Morphology Normal PT 15.1 H INR 1.4 APTT 33.1 Sodium 139 Potassium 3.8 Chloride 102 Carbon Dioxide 24 Anion Gap 17 BUN 10 Creatinine 0.7 L Est GFR ( Amer) > 60 Est GFR (Non-Af Amer) > 60 Random Glucose 265 H Calcium 9.1 Total Bilirubin 0.6 AST 30 ALT 21 Alkaline Phosphatase 65 Troponin I 0.1060 NT-Pro-B Natriuret Pep 40219 H Total Protein 7.5 Albumin 4.1 Globulin 3.3 Albumin/Globulin Ratio 1.2 Urine Color Urine Clarity Urine pH Ur Specific [place] Urine Protein Urine Glucose (UA) Urine Ketones Urine Blood Urine Nitrate Urine Bilirubin Urine Urobilinogen Ur Leukocyte Esterase Urine RBC (Auto) Urine Microscopic WBC 03/23/18 16:22 WBC RBC Hgb Hct MCV MCH MCHC RDW Plt Count MPV Neut % (Auto) Lymph % (Auto) Robertson % (Auto) Eos % (Auto) Baso % (Auto) Neut # (Auto) Lymph # (Auto) Robertson # (Auto) Eos # (Auto) Baso # (Auto) Neutrophils % (Manual) Lymphocytes % (Manual) Monocytes % (Manual) Platelet Estimate RBC Morphology PT INR APTT Sodium Potassium Chloride Carbon Dioxide Anion Gap BUN Creatinine Est GFR ( Amer) Est GFR (Non-Af Amer) Random Glucose Calcium Total Bilirubin AST ALT Alkaline Phosphatase Troponin I NT-Pro-B Natriuret Pep Total Protein Albumin Globulin Albumin/Globulin Ratio Urine Color Yellow Urine Clarity Clear Urine pH 5.0 Ur Specific [place] 1.013 Urine Protein Negative Urine Glucose (UA) >=500 Urine Ketones Negative Urine Blood Moderate Urine Nitrate Negative Urine Bilirubin Negative Urine Urobilinogen 0.2-1.0 Ur Leukocyte Esterase Neg Urine RBC (Auto) 14 H Urine Microscopic WBC 1 Attending/Attestation - Attestation I have personally seen and examined this patient.: Yes I have fully participated in the care of the patient.: Yes I have reviewed all pertinent clinical information: Yes
[2018-03-23] MEDS ORDERED: Dextrose 50% SYRINGE Inj (50 ml) IV PRN (16:06)
[2018-03-23] MEDS ORDERED: Glucagon Recombinant 1 mg Inj IM PRN (16:06)
--- NOTE | 2018-03-23 16:25 | CT ---
Date of service: 03/23/2018 PROCEDURE: CT HEAD WITHOUT CONTRAST. HISTORY: head injury, dysequilibrium COMPARISON: CT head dated 09/18/2017. TECHNIQUE: Axial computed tomography images were obtained through the head/brain without intravenous contrast. Radiation dose: Total exam DLP = 814.2 mGy-cm. This CT exam was performed using one or more of the following dose reduction techniques: Automated exposure control, adjustment of the mA and/or kV according to patient size, and/or use of iterative reconstruction technique. FINDINGS: HEMORRHAGE: No intracranial hemorrhage. BRAIN: No mass effect or edema. Atrophy. Chronic microvascular ischemic changes. Lacunar infarction redemonstrated in the right otto. VENTRICLES: Unremarkable. No hydrocephalus. CALVARIUM: Unremarkable. PARANASAL SINUSES: Unremarkable as visualized. No significant inflammatory changes. MASTOID AIR CELLS: Unremarkable as visualized. No inflammatory changes. OTHER FINDINGS: None. IMPRESSION: No acute intracranial pathology. Age-related changes. No significant interval change.
[2018-03-23 16:43] LABS: URINE BILIRUBIN NEGATIVE (NEGATIVE); URINE BLOOD MODERATE (NEGATIVE); URINE CLARITY CLEAR (Clear); URINE COLOR YELLOW (YELLOW); URINE GLUCOSE (UA) >=500 mg/dL (Normal); URINE LEUKOCYTE ESTERASE NEG Leu/uL (Negative); URINE PROTEIN NEGATIVE (NEGATIVE); URINE UROBILINOGEN 0.2-1.0 mg/dL (0.2-1.0)
[2018-03-23] MEDS: Insulin Lispro (humaLOG) 100 Units/ml Inj SC SCH (17:31)
[2018-03-23] MEDS ORDERED: Enoxaparin 60 mg Syringe SC STA (22:40)
--- NOTE | 2018-03-24 00:10 | CARD ---
APPROVED REPORT Date of service: 03/23/2018 EKG Measurement Heart [id number] <Conclusion> Normal sinus rhythm Right bundle branch block Left anterior fascicular block Bifascicular block Abnormal ECG
[2018-03-24 06:36] LABS: BASO # 0.1 K/uL (0.0-0.2); BASO % 0.8 % (0.0-2.0); EOS # 0.1 K/uL (0.0-0.7); HEMOGLOBIN 13.6 g/dL (12.0-18.0); LYMPH # 1.7 K/uL (1.0-4.3); LYMPH % 20.5 % (20.0-40.0); MEAN CELL VOLUME 93.2 fl (80.0-94.0); MEAN CORPUSCULAR HEMOGLOBIN 31.8 pg (27.0-31.0); MEAN CORPUSCULAR HGB CONC 34.1 g/dL (33.0-37.0); MEAN PLATELET VOLUME 8.4 fl (7.2-11.7); MONO % 12.1 % (0.0-10.0); NEUT # 5.3 K/uL (1.8-7.0); NEUT % 65.6 % (50.0-75.0); NRBC % 0.1 % (0.0-0.0); RBC 4.28 Mil/uL (4.40-5.90); RED CELL DISTRIBUTION WIDTH 14.2 % (11.5-14.5); WHITE BLOOD COUNT 8.1 K/uL (4.8-10.8)
[2018-03-24 06:50] LABS: BLOOD UREA NITROGEN 14 mg/dl (9-20); CALCIUM 8.5 mg/dL (8.4-10.2); GFR NON-AFRICAN AMERICAN > 60; HDL CHOLESTEROL 19 MG/DL (30-70)
[2018-03-24 06:54] LABS: LDL CHOLESTEROL 41 mg/dL (0-129)
[2018-03-24] MEDS: Insulin Lispro (humaLOG) 100 Units/ml Inj SC SCH ×5 (09:16→21:37)
--- NOTE | 2018-03-24 09:53 | CP.PCM.CON ---
History of Present Illness - History of Present Illness History of Present Illness: THE PATIENT IS A 72 YEAR OLD MALE WELL KNOWN TO ME. 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 HE HAD AN INFERIOR WALL ME A FEW YEARS AGO AND PRESENTED TO [facility] ER AND A [facility] WAS CALLED AND HE WAS SENT TO [facility] AND HAD STENT INSERTIONS AND DID WELL UNTIL EARLIER THIS YEAR WHEN HE HAD 2 NSTEMIS AND DECLINED CARDIAC CATHS FOR POSSIBLE CORONARY INTERVENTIONS AND A RESULT HE HAD SIGNIFICANT CARDIAC MUSCLE INJURY WITH A LVEF OF ~ 15-20% AND HE ALSO DECLINED TO CONSIDER A DEFIBRILLATOR. HE NOW HAD CHEST PAIN YESTERDAY AND CAME TO THE ER WHERE HIS FIRST TROPONIN WAS NORMAL. HE ALSO FELL AND HIT HIS HEAD. HE WAS ADMITTED AND CARDIOLOGY WAS ASKED TO SEE HIM. THE CHEST PAIN IMPROVED AND IS DECREASED TODAY BUT IT IS HARD TO EVALUATE HE ALSO HAS CHEST WALL SYNDROME. Past Patient History - Infectious Disease Hx of Infectious Diseases: None - Tetanus Immunizations Tetanus Immunization: Unknown - Past Medical History & Family History Past Medical History?: Yes - Past Social History Alcohol: None Drugs: Denies - CARDIAC Hx Cardia Arrhythmia: Yes Hx Congestive Heart Failure: Yes Hx Hypercholesterolemia: Yes Hx Hypertension: Yes - PULMONARY Hx Asthma: Yes Hx Bronchitis: No Hx Chronic Obstructive Pulmonary Disease (COPD): Yes Hx Emphysema: Yes Hx Pneumonia: Yes - NEUROLOGICAL Hx Multiple Sclerosis: Yes Hx Transient Ischemic Attacks (TIA): Yes - HEENT Hx HEENT Problems: No - RENAL Hx Chronic Kidney Disease: No - ENDOCRINE/METABOLIC Hx Diabetes Mellitus Type 2: Yes - HEMATOLOGICAL/ONCOLOGICAL Hx Anemia: Yes Hx Human Immunodeficiency Virus (HIV): No - INTEGUMENTARY Hx Dermatological Problems: No - MUSCULOSKELETAL/RHEUMATOLOGICAL Hx Arthritis: Yes Hx Fractures: Yes (bilateral feet) - GASTROINTESTINAL Hx Gastrointestinal Disorders: No - GENITOURINARY/GYNECOLOGICAL Hx Genitourinary Disorders: No - PSYCHIATRIC Hx Anxiety: Yes Hx Depression: Yes - SURGICAL HISTORY Hx Cholecystectomy: Yes Hx Coronary Artery Bypass Graft: No Hx Coronary Stent: Yes (x3) - ANESTHESIA Hx Anesthesia: Yes Hx Anesthesia Reactions: No Hx Malignant Hyperthermia: No Meds Allergies/Adverse Reactions: Allergies Allergy/AdvReac Type Severity Reaction Status Date / Time ampicillin Allergy RASH Verified 12/30/17 15:58 codeine AdvReac HEADACHE Verified 12/30/17 15:58 - Medications Medications: Current Medications Acetaminophen (Tylenol 325mg Tab) 650 mg PO Q6 PRN PRN Reason: Pain, moderate (4-7) Albuterol/Ipratropium (Duoneb 3 Mg/0.5 Mg (3 Ml) Ud) 3 ml IH RQ6 PRN PRN Reason: Wheezing Aspirin (Ecotrin) 81 mg PO DAILY [facility] Atorvastatin Calcium (Lipitor) 20 mg PO DAILY [facility] Clopidogrel Bisulfate (Plavix) 75 mg PO DAILY [facility] Dextrose (Dextrose 50% Inj) 0 ml IV STAT PRN; Protocol PRN Reason: Hypoglycemia Protocol Dextrose (Glutose 15) 0 gm PO ONCE PRN; Protocol PRN Reason: Hypoglycemia Protocol Digoxin (Digoxin) 0.125 mg PO QOTHERDAY [facility] Docusate Sodium (Colace) 100 mg PO BID PRN PRN Reason: Constipation Enoxaparin Sodium (Lovenox) 60 mg SC Q12 [facility]; Protocol Furosemide (Lasix) 40 mg IV DAILY [facility] Last Admin: 03/23/18 17:20 Dose: 40 mg Glucagon (Glucagen Diagnostic Kit) 0 mg IM STAT PRN; Protocol PRN Reason: Hypoglycemia Protocol Insulin Human Lispro (Humalog) 0 units SC ACHS [facility]; Protocol Last Admin: 03/24/18 09:16 Dose: Not Given Isosorbide Mononitrate (Imdur Er) 30 mg PO DAILY [facility] Losartan Potassium (Cozaar) 25 mg PO DAILY [facility] Metoprolol Succinate (Toprol Xl) 25 mg PO DAILY [facility] Pantoprazole Sodium (Protonix Ec Tab) 40 mg PO DAILY [facility] Sertraline HCl (Zoloft) 50 mg PO DAILY [facility] Tamsulosin HCl (Flomax) 0.4 mg PO DAILY [facility] Tiotropium [place] (Spiriva) 18 mcg INH DAILY [facility] Tramadol HCl (Ultram) 50 mg PO Q6 PRN PRN Reason: Pain, severe (8-10) Last Admin: 03/24/18 02:22 Dose: 50 mg Physical Exam - Respiratory Exam Respiratory Exam: Clear to Auscultation Bilateral - Cardiovascular Exam Cardiovascular Exam: REGULAR RHYTHM, +S1, +S2 - Extremities Exam Additional comments: NO LE EDEMA - Additional Findings Additional findings: THE FIRST TROPONIN WAS NORMAL BUT THE SECOND AND THIRD WERE ELEVATED EKG NSR, RBBB, T WAVE INVERSIONS IN I, L, V1 AND V2 PBNP IS ELEVATED CXR NAD CT OF HEAD NO ACUTE CHANGES Results - Vital Signs Recent Vital Signs: Last Vital Signs Temp 97.8 F 03/24/18 09:25 Pulse 77 03/24/18 09:25 Resp 17 03/24/18 09:25 BP 115/62 03/24/18 09:25 Pulse Ox 99 03/24/18 09:25 - Labs Result Diagrams: 03/24/18 05:35 03/24/18 05:35 Labs: Laboratory Results - last 24 hr 03/23/18 03/23/18 03/23/18 13:20 13:20 13:20 WBC 8.0 RBC 4.49 Hgb 14.1 Hct 42.1 MCV 93.7 D MCH 31.5 H MCHC 33.6 RDW 13.9 Plt Count 232 MPV 8.3 Neut % (Auto) 79.4 H Lymph % (Auto) 9.9 L [place] % (Auto) 8.3 Eos % (Auto) 1.4 Baso % (Auto) 1.0 Neut # (Auto) 6.4 Lymph # (Auto) 0.8 L [place] # (Auto) 0.7 Eos # (Auto) 0.1 Baso # (Auto) 0.1 Neutrophils % (Manual) 82 H Lymphocytes % (Manual) 10 L Monocytes % (Manual) 8 Platelet Estimate Normal RBC Morphology Normal PT 15.1 H INR 1.4 APTT 33.1 Sodium 139 Potassium 3.8 Chloride 102 Carbon Dioxide 24 Anion Gap 17 BUN 10 Creatinine 0.7 L Est GFR ( Amer) > 60 Est GFR (Non-Af Amer) > 60 POC Glucose (mg/dL) Random Glucose 265 H Calcium 9.1 Total Bilirubin 0.6 AST 30 ALT 21 Alkaline Phosphatase 65 Troponin I 0.1060 NT-Pro-B Natriuret Pep 80356 H Total Protein 7.5 Albumin 4.1 Globulin 3.3 Albumin/Globulin Ratio 1.2 Triglycerides Cholesterol LDL Cholesterol Direct HDL Cholesterol Urine Color Urine Clarity Urine pH Ur Specific [place] Urine Protein Urine Glucose (UA) Urine Ketones Urine Blood Urine Nitrate Urine Bilirubin Urine Urobilinogen Ur Leukocyte Esterase Urine RBC (Auto) Urine Microscopic WBC 03/23/18 03/23/18 03/24/18 16:22 21:42 05:35 WBC 8.1 RBC 4.28 L Hgb 13.6 Hct 39.8 MCV 93.2 MCH 31.8 H MCHC 34.1 RDW 14.2 Plt Count 231 MPV 8.4 Neut % (Auto) 65.6 Lymph % (Auto) 20.5 [place] % (Auto) 12.1 H Eos % (Auto) 1.0 Baso % (Auto) 0.8 Neut # (Auto) 5.3 Lymph # (Auto) 1.7 [place] # (Auto) 1.0 H Eos # (Auto) 0.1 Baso # (Auto) 0.1 Neutrophils % (Manual) Lymphocytes % (Manual) Monocytes % (Manual) Platelet Estimate RBC Morphology PT INR APTT Sodium Potassium Chloride Carbon Dioxide Anion Gap BUN Creatinine Est GFR ( Amer) Est GFR (Non-Af Amer) POC Glucose (mg/dL) Random Glucose Calcium Total Bilirubin AST ALT Alkaline Phosphatase Troponin I 0.5270 H* NT-Pro-B Natriuret Pep Total Protein Albumin Globulin Albumin/Globulin Ratio Triglycerides Cholesterol LDL Cholesterol Direct HDL Cholesterol Urine Color Yellow Urine Clarity Clear Urine pH 5.0 Ur Specific [place] 1.013 Urine Protein Negative Urine Glucose (UA) >=500 Urine Ketones Negative Urine Blood Moderate Urine Nitrate Negative Urine Bilirubin Negative Urine Urobilinogen 0.2-1.0 Ur Leukocyte Esterase Neg Urine RBC (Auto) 14 H Urine Microscopic WBC 1 03/24/18 03/24/18 05:35 09:14 WBC RBC Hgb Hct MCV MCH MCHC RDW Plt Count MPV Neut % (Auto) Lymph % (Auto) [place] % (Auto) Eos % (Auto) Baso % (Auto) Neut # (Auto) Lymph # (Auto) [place] # (Auto) Eos # (Auto) Baso # (Auto) Neutrophils % (Manual) Lymphocytes % (Manual) Monocytes % (Manual) Platelet Estimate RBC Morphology PT INR APTT Sodium 139 Potassium 3.2 L Chloride 105 Carbon Dioxide 24 Anion Gap 13 BUN 14 Creatinine 0.8 Est GFR ( Amer) > 60 Est GFR (Non-Af Amer) > 60 POC Glucose (mg/dL) 116 H Random Glucose 145 H Calcium 8.5 Total Bilirubin AST ALT Alkaline Phosphatase Troponin I 0.2930 H* NT-Pro-B Natriuret Pep Total Protein Albumin Globulin Albumin/Globulin Ratio Triglycerides 92 D Cholesterol 77 LDL Cholesterol Direct 41 HDL Cholesterol 19 L Urine Color Urine Clarity Urine pH Ur Specific [place] Urine Protein Urine Glucose (UA) Urine Ketones Urine Blood Urine Nitrate Urine Bilirubin Urine Urobilinogen Ur Leukocyte Esterase Urine RBC (Auto) Urine Microscopic WBC Assessment & Plan - Assessment and Plan (Free Text) Assessment: CAD WITH NEW BUT RECURRENT NSTEMI CHRONIC SYSTOLIC CHF HYPERTENSION HYPERLIPIDEMIA MS OLD CVA/TIA Plan: CONTINUE O2, METOPROLOL, ASPIRIN, CLOPIDOGREL, NITRATES, THERAPEUTIC DOSE LOVENOX, LOSARTAN, ATORVASTATIN AND DIGOXIN THE PATIENT AGAIN DECLINES A CARDIAC CATH FOR FURTHER EVALUATION ECHOCARDIOGRAM TO ASSESS LV FUNCTION
[2018-03-24] MEDS: Enoxaparin 60 mg Syringe SC SCH ×2 (10:25→21:36)
[2018-03-24] MEDS: Pantoprazole 40 mg EC Tab PO SCH (10:26)
[2018-03-24] MEDS: Tiotropium 18 mcg Cap For Inhalation INH SCH (10:26)
[2018-03-24] MEDS: Metoprolol Succinate 25 mg XL Tab PO SCH (10:27)
--- NOTE | 2018-03-24 11:00 | CARD ---
APPROVED REPORT Date of service: 03/24/2018 EKG Measurement Heart [id number] <Conclusion> Sinus rhythm with premature atrial complexes Right bundle branch block Left anterior fascicular block Bifascicular block Abnormal ECG
[2018-03-24] MEDS ORDERED: Potassium Chloride 20 mEq 100 ML IVPB ONE (11:19)
--- NOTE | 2018-03-24 13:22 | CP.PCM.PN ---
<Herson Earl - Last Filed: 03/24/18 13:16> Subjective - Date & Time of Evaluation Date of Evaluation: 03/24/18 Time of Evaluation: 10:00 - Subjective Subjective: Patient seen and examined at bedside. NAD, AAOx3, reports mild left chest pain but denies any dizziness, palpitations, SOB, abdominal pain or urinary symptoms. Afebrile, tolerating PO diet. Patient declines Cardiac cath. Objective - Vital Signs/Intake and Output Vital Signs (last 24 hours): Temp Pulse Resp BP Pulse Ox 98.4 F 60 18 120/66 100 03/24/18 12:21 03/24/18 12:21 03/24/18 12:21 03/24/18 12:21 03/24/18 12:21 - Medications Medications: Current Medications Acetaminophen (Tylenol 325mg Tab) 650 mg PO Q6 PRN PRN Reason: Pain, moderate (4-7) Albuterol/Ipratropium (Duoneb 3 Mg/0.5 Mg (3 Ml) Ud) 3 ml IH RQ6 PRN PRN Reason: Wheezing Aspirin (Ecotrin) 81 mg PO DAILY [facility] Last Admin: 03/24/18 10:24 Dose: 81 mg Atorvastatin Calcium (Lipitor) 20 mg PO DAILY [facility] Last Admin: 03/24/18 10:25 Dose: 20 mg Clopidogrel Bisulfate (Plavix) 75 mg PO DAILY [facility] Last Admin: 03/24/18 10:26 Dose: 75 mg Dextrose (Dextrose 50% Inj) 0 ml IV STAT PRN; Protocol PRN Reason: Hypoglycemia Protocol Dextrose (Glutose 15) 0 gm PO ONCE PRN; Protocol PRN Reason: Hypoglycemia Protocol Digoxin (Digoxin) 0.125 mg PO QOTHERDAY [facility] Docusate Sodium (Colace) 100 mg PO BID PRN PRN Reason: Constipation Enoxaparin Sodium (Lovenox) 60 mg SC Q12 [facility]; Protocol Last Admin: 03/24/18 10:25 Dose: 60 mg Furosemide (Lasix) 40 mg IV DAILY [facility] Last Admin: 03/24/18 10:20 Dose: Not Given Glucagon (Glucagen Diagnostic Kit) 0 mg IM STAT PRN; Protocol PRN Reason: Hypoglycemia Protocol Potassium Chloride (Potassium Chloride 20 Meq/100 Ml) 100 mls @ 50 mls/hr IVPB Q2 ONE Stop: 03/24/18 13:18 Last Admin: 03/24/18 12:45 Dose: 50 mls/hr Insulin Human Lispro (Humalog) 0 units SC ACHS [facility]; Protocol Last Admin: 03/24/18 12:46 Dose: 2 units Isosorbide Mononitrate (Imdur Er) 30 mg PO DAILY [facility] Last Admin: 03/24/18 12:45 Dose: 30 mg Losartan Potassium (Cozaar) 25 mg PO DAILY [facility] Last Admin: 03/24/18 10:23 Dose: Not Given Metoprolol Succinate (Toprol Xl) 25 mg PO DAILY [facility] Last Admin: 03/24/18 10:27 Dose: Not Given Morphine Sulfate (Morphine) 2 mg IVP Q6 PRN PRN Reason: Pain, severe (8-10) Pantoprazole Sodium (Protonix Ec Tab) 40 mg PO DAILY [facility] Last Admin: 03/24/18 10:26 Dose: 40 mg Sertraline HCl (Zoloft) 50 mg PO DAILY [facility] Last Admin: 03/24/18 10:27 Dose: 50 mg Tamsulosin HCl (Flomax) 0.4 mg PO DAILY [facility] Last Admin: 03/24/18 10:25 Dose: 0.4 mg Tiotropium [place] (Spiriva) 18 mcg INH DAILY [facility] Last Admin: 03/24/18 10:26 Dose: 18 mcg Tramadol HCl (Ultram) 50 mg PO Q6 PRN PRN Reason: Pain, moderate (4-7) - Labs Labs: 03/24/18 05:35 03/24/18 05:35 PT 15.1 Seconds (9.8-13.1) H 03/23/18 13:20 INR 1.4 03/23/18 13:20 APTT 33.1 Seconds (25.6-37.1) 03/23/18 13:20 - Constitutional Appears: No Acute Distress - Head Exam Head Exam: NORMAL INSPECTION - Eye Exam Eye Exam: Normal appearance - ENT Exam ENT Exam: Mucous Membranes Moist - Neck Exam Neck Exam: Full ROM - Respiratory Exam Respiratory Exam: Clear to Ausculation Bilateral, NORMAL BREATHING PATTERN. absent: Rhonchi, Wheezes, Respiratory Distress - Cardiovascular Exam Cardiovascular Exam: REGULAR RHYTHM, +S1, +S2 - GI/Abdominal Exam GI & Abdominal Exam: Soft, Normal Bowel Sounds - Rectal Exam Rectal Exam: NORMAL INSPECTION - Extremities Exam Extremities Exam: Normal Inspection. absent: Pedal Edema, Tenderness - Back Exam Back Exam: absent: CVA tenderness (L), CVA tenderness (R) - Neurological Exam Neurological Exam: Alert, Awake, CN II-XII Intact, Oriented x3 Neuro motor strength exam: Left Upper Extremity: 4, Right Upper Extremity: 4, Left Lower Extremity: 4, Right Lower Extremity: 4 - Psychiatric Exam Psychiatric exam: Normal Affect - Skin Skin Exam: Dry, Intact, Normal Color, Warm Assessment and Plan - Assessment and Plan (Free Text) Assessment: A/P: 72 years old male with hx of COPD, DM, HTN. CAD s/p PCI X3, fefusing cardiac cath earlier this year presents c/o left arm and left upper back pain that worsen on exertion and is admitted to hosp for obs to r/o ACS NSTEMI - Acute - Positive Troponin x2 after initial negative trop - EKG on admission RBBB with T waves inversions - CXR no active disease - Consult, Dr House cardiology, Appreciated - Patient doesn't want Cardiac cath (Understands risks and benefits) - Possible Echo today, Follow up with serial EKGs - C/w Metoprolol, Aspirin, Clopidogrel, Losartan, Statin, Digoxin, nitrates, lovenox 60mg, Lasix 40mg daily - C/w pain management with Morphine and Ultram S/P Fall/headache - Acute, no neuro deficit - Morphine/Trmadol for pain - CT head: No acute pathology Systolic CHF - Chronic - Stable - Elevated proBNP - Last echo in 12/2017 shows EF =20 with LVH - C/w Lasix, Losartan and BB CAD - C/w Metoprolol, Aspirin, Clopidogrel, Losartan, Statin, Digoxin, nitrates, lovenox 60mg, Lasix 40mg daily DM II with Hyperglycemia - Regular Insulin sliding scale according to accucheck - Hypoglycemia protocol - HBA1C 7.4 on 03/2018 COPD - Chronic, stable - C/W Spiriva and albuterol Anxiety/depression - c/w Zoloft DVT prophylaxis with Lovenox <Miguel Childers D - Last Filed: 03/24/18 13:58> Objective - Vital Signs/Intake and Output Vital Signs (last 24 hours): Temp Pulse Resp BP Pulse Ox 98.4 F 60 18 120/66 100 03/24/18 12:21 03/24/18 12:21 10/01/18 12:21 03/24/18 12:21 03/24/18 12:21 - Medications Medications: Current Medications Acetaminophen (Tylenol 325mg Tab) 650 mg PO Q6 PRN PRN Reason: Pain, moderate (4-7) Albuterol/Ipratropium (Duoneb 3 Mg/0.5 Mg (3 Ml) Ud) 3 ml IH RQ6 PRN PRN Reason: Wheezing Aspirin (Ecotrin) 81 mg PO DAILY [facility] Last Admin: 03/24/18 10:24 Dose: 81 mg Atorvastatin Calcium (Lipitor) 20 mg PO DAILY [facility] Last Admin: 03/24/18 10:25 Dose: 20 mg Clopidogrel Bisulfate (Plavix) 75 mg PO DAILY [facility] Last Admin: 03/24/18 10:26 Dose: 75 mg Dextrose (Dextrose 50% Inj) 0 ml IV STAT PRN; Protocol PRN Reason: Hypoglycemia Protocol Dextrose (Glutose 15) 0 gm PO ONCE PRN; Protocol PRN Reason: Hypoglycemia Protocol Digoxin (Digoxin) 0.125 mg PO QOTHERDAY [facility] Docusate Sodium (Colace) 100 mg PO BID PRN PRN Reason: Constipation Enoxaparin Sodium (Lovenox) 60 mg SC Q12 [facility]; Protocol Last Admin: 03/24/18 10:25 Dose: 60 mg Furosemide (Lasix) 40 mg IV DAILY [facility] Last Admin: 03/24/18 10:20 Dose: Not Given Glucagon (Glucagen Diagnostic Kit) 0 mg IM STAT PRN; Protocol PRN Reason: Hypoglycemia Protocol Insulin Human Lispro (Humalog) 0 units SC ACHS [facility]; Protocol Last Admin: 03/24/18 12:46 Dose: 2 units Isosorbide Mononitrate (Imdur Er) 30 mg PO DAILY [facility] Last Admin: 03/24/18 12:45 Dose: 30 mg Losartan Potassium (Cozaar) 25 mg PO DAILY [facility] Last Admin: 03/24/18 10:23 Dose: Not Given Metoprolol Succinate (Toprol Xl) 25 mg PO DAILY [facility] Last Admin: 03/24/18 10:27 Dose: Not Given Morphine Sulfate (Morphine) 2 mg IVP Q6 PRN PRN Reason: Pain, severe (8-10) Pantoprazole Sodium (Protonix Ec Tab) 40 mg PO DAILY [facility] Last Admin: 10/01/18 10:26 Dose: 40 mg Sertraline HCl (Zoloft) 50 mg PO DAILY [facility] Last Admin: 03/24/18 10:27 Dose: 50 mg Tamsulosin HCl (Flomax) 0.4 mg PO DAILY [facility] Last Admin: 03/24/18 10:25 Dose: 0.4 mg Tiotropium [place] (Spiriva) 18 mcg INH DAILY [facility] Last Admin: 03/24/18 10:26 Dose: 18 mcg Tramadol HCl (Ultram) 50 mg PO Q6 PRN PRN Reason: Pain, moderate (4-7) - Labs Labs: 03/24/18 05:35 03/24/18 05:35 PT 15.1 Seconds (9.8-13.1) H 03/23/18 13:20 INR 1.4 03/23/18 13:20 APTT 33.1 Seconds (25.6-37.1) 03/23/18 13:20 Attending/Attestation - Attestation I have personally seen and examined this patient.: Yes I have fully participated in the care of the patient.: Yes I have reviewed all pertinent clinical information, including history, physical exam and plan: Yes
[2018-03-24] MEDS ORDERED: Influenza Vaccine (5 YR UP)/PF 60 MCG/0.5 ML SYR IM ONE (15:29)
[2018-03-25 06:07] LABS: BLOOD UREA NITROGEN 17 mg/dl (9-20); CALCIUM 8.2 mg/dL (8.4-10.2); GFR NON-AFRICAN AMERICAN > 60
[2018-03-25] MEDS: Insulin Lispro (humaLOG) 100 Units/ml Inj SC SCH ×4 (06:50→22:16)
[2018-03-25] MEDS: Tiotropium 18 mcg Cap For Inhalation INH SCH (09:05)
[2018-03-25] MEDS: Enoxaparin 60 mg Syringe SC SCH ×2 (09:05→21:30)
[2018-03-25] MEDS: Digoxin 125 mcg (0.125 mg) Tab PO SCH (09:06)
[2018-03-25] MEDS: Pantoprazole 40 mg EC Tab PO SCH (09:06)
[2018-03-25] MEDS: Metoprolol Succinate 25 mg XL Tab PO SCH (09:14)
--- NOTE | 2018-03-25 09:21 | CP.PCM.PN ---
Addendum entered by Jayna Sher MD 03/25/18 17:56: Pt is DNR/DNI Surrogate decision maker - Marianna Webb Addendum entered and electronically signed by Herson Earl MD 03/25/18 12:09: As per Lab: Patient's Bcx growing Gram positive cocci (Possibly contaminated) Will repeat Blood Cx today and start patient on Vanco 500mg Q12 for now Original Note: <Herson Earl - Last Filed: 03/25/18 10:12> Subjective - Date & Time of Evaluation Date of Evaluation: 03/25/18 Time of Evaluation: 08:30 - Subjective Subjective: Patient seen and examined this morning at bedside. Reports no acute event overnight, NAD, AAOx3, States improved chest pain, 100.7 Tm s/p flu shot yesterday. Tolerating PO, ambulating to the bathroom, denies any dizziness, palpitations, SOB, abdominal pain or urinary symptoms. Objective - Vital Signs/Intake and Output Vital Signs (last 24 hours): Temp Pulse Resp BP Pulse Ox 98.6 F 73 18 93/59 L 97 03/25/18 08:02 03/25/18 09:14 03/25/18 08:02 03/25/18 09:15 03/25/18 08:02 - Medications Medications: Current Medications Acetaminophen (Tylenol 325mg Tab) 650 mg PO Q6 PRN PRN Reason: Pain, moderate (4-7) Albuterol/Ipratropium (Duoneb 3 Mg/0.5 Mg (3 Ml) Ud) 3 ml IH RQ6 PRN PRN Reason: Wheezing Aspirin (Ecotrin) 81 mg PO DAILY [facility] Last Admin: 03/25/18 09:06 Dose: 81 mg Atorvastatin Calcium (Lipitor) 20 mg PO DAILY [facility] Last Admin: 03/25/18 09:07 Dose: 20 mg Clopidogrel Bisulfate (Plavix) 75 mg PO DAILY [facility] Last Admin: 03/25/18 09:06 Dose: 75 mg Dextrose (Dextrose 50% Inj) 0 ml IV STAT PRN; Protocol PRN Reason: Hypoglycemia Protocol Dextrose (Glutose 15) 0 gm PO ONCE PRN; Protocol PRN Reason: Hypoglycemia Protocol Digoxin (Digoxin) 0.125 mg PO QOTHERDAY [facility] Last Admin: 10/02/18 09:06 Dose: 0.125 mg Docusate Sodium (Colace) 100 mg PO BID PRN PRN Reason: Constipation Enoxaparin Sodium (Lovenox) 60 mg SC Q12 [facility]; Protocol Last Admin: 03/25/18 09:05 Dose: 60 mg Furosemide (Lasix) 40 mg IV DAILY [facility] Last Admin: 03/25/18 09:15 Dose: Not Given Glucagon (Glucagen Diagnostic Kit) 0 mg IM STAT PRN; Protocol PRN Reason: Hypoglycemia Protocol Insulin Human Lispro (Humalog) 0 units SC ACHS [facility]; Protocol Last Admin: 03/25/18 06:50 Dose: 1 units Isosorbide Mononitrate (Imdur Er) 30 mg PO DAILY [facility] Last Admin: 03/25/18 09:06 Dose: 30 mg Losartan Potassium (Cozaar) 25 mg PO DAILY [facility] Last Admin: 03/25/18 09:07 Dose: Not Given Metoprolol Succinate (Toprol Xl) 25 mg PO DAILY [facility] Last Admin: 03/25/18 09:14 Dose: Not Given Morphine Sulfate (Morphine) 2 mg IVP Q6 PRN PRN Reason: Pain, severe (8-10) Pantoprazole Sodium (Protonix Ec Tab) 40 mg PO DAILY [facility] Last Admin: 03/25/18 09:06 Dose: 40 mg Sertraline HCl (Zoloft) 50 mg PO DAILY [facility] Last Admin: 03/25/18 09:15 Dose: 50 mg Tamsulosin HCl (Flomax) 0.4 mg PO DAILY [facility] Last Admin: 03/25/18 09:06 Dose: 0.4 mg Tiotropium [place] (Spiriva) 18 mcg INH DAILY [facility] Last Admin: 03/25/18 09:05 Dose: 18 mcg Tramadol HCl (Ultram) 50 mg PO Q6 PRN PRN Reason: Pain, moderate (4-7) Last Admin: 03/25/18 06:11 Dose: 50 mg - Labs Labs: 03/24/18 05:35 03/25/18 05:10 PT 15.1 Seconds (9.8-13.1) H 03/23/18 13:20 INR 1.4 03/23/18 13:20 APTT 33.1 Seconds (25.6-37.1) 03/23/18 13:20 - Constitutional Appears: No Acute Distress - Head Exam Head Exam: NORMOCEPHALIC - Eye Exam Eye Exam: Normal appearance Pupil Exam: NORMAL ACCOMODATION - ENT Exam ENT Exam: Mucous Membranes Moist - Neck Exam Neck Exam: Full ROM - Respiratory Exam Respiratory Exam: Clear to Ausculation Bilateral, NORMAL BREATHING PATTERN. absent: Decreased Breath Sounds, Rhonchi, Wheezes, Respiratory Distress - Cardiovascular Exam Cardiovascular Exam: REGULAR RHYTHM - GI/Abdominal Exam GI & Abdominal Exam: Soft, Normal Bowel Sounds - Back Exam Back Exam: absent: CVA tenderness (L), CVA tenderness (R) - Neurological Exam Neurological Exam: Alert, Awake, CN II-XII Intact, Oriented x3 Neuro motor strength exam: Left Upper Extremity: 4, Right Upper Extremity: 4, Left Lower Extremity: 4, Right Lower Extremity: 4 - Psychiatric Exam Psychiatric exam: Normal Affect - Skin Skin Exam: Normal Color Assessment and Plan - Assessment and Plan (Free Text) Assessment: A/P: 72 years old male with hx of COPD, DM, HTN. CAD s/p PCI X3, refusing cardiac cath admitted to hospital for evaluation and treatment of NSTEMI. NSTEMI - Acute - Positive Troponin x2 after initial negative trop, Trending down - EKG on admission RBBB with T waves inversions - CXR no active disease - Consult, Dr House cardiology, Appreciated - Patient doesn't want Cardiac cath (Understands risks and benefits) - Possible Echo today, Follow up with serial EKGs - C/w Aspirin, Clopidogrel, Statin, Digoxin, nitrates, and lovenox 60mg (Hold Lasix, Losartan and BB), F/u Digoxin level tomorrow AM - C/w pain management with Morphine and Ultram S/P Fall/headache - Acute, no neuro deficit - Morphine/Trmadol for pain - CT head: No acute pathology Systolic CHF with reduced EF - Chronic - Stable - Elevated proBNP - Last echo in 12/2017 shows EF =20 with LVH - Hold Lasix, Losartan and BB due to low BP Deconditioning, Gait Imbalance - Physical therapy Consult for eval and treat Low Blood Pressure - Hold Lasix, Losartan and BB CAD - C/w Metoprolol, Aspirin, Clopidogrel, Statin, Digoxin, nitrates, lovenox 60mg DM II with Hyperglycemia - Regular Insulin sliding scale according to accucheck - Hypoglycemia protocol - HBA1C 7.4 on 03/2018 COPD - Chronic, stable - C/W Spiriva and albuterol Anxiety/depression - c/w Zoloft DVT prophylaxis with Lovenox <Jayna Sher - Last Filed: 03/25/18 15:52> Objective - Vital Signs/Intake and Output Vital Signs (last 24 hours): Temp Pulse Resp BP Pulse Ox 99.2 F 86 18 92/63 L 99 03/25/18 12:22 03/25/18 12:22 03/25/18 12:22 03/25/18 12:22 03/25/18 12:22 - Medications Medications: Current Medications Acetaminophen (Tylenol 325mg Tab) 650 mg PO Q6 PRN PRN Reason: Pain, moderate (4-7) Albuterol/Ipratropium (Duoneb 3 Mg/0.5 Mg (3 Ml) Ud) 3 ml IH RQ6 PRN PRN Reason: Wheezing Aspirin (Ecotrin) 81 mg PO DAILY [facility] Last Admin: 03/25/18 09:06 Dose: 81 mg Atorvastatin Calcium (Lipitor) 20 mg PO DAILY [facility] Last Admin: 03/25/18 09:07 Dose: 20 mg Clopidogrel Bisulfate (Plavix) 75 mg PO DAILY [facility] Last Admin: 03/25/18 09:06 Dose: 75 mg Dextrose (Dextrose 50% Inj) 0 ml IV STAT PRN; Protocol PRN Reason: Hypoglycemia Protocol Dextrose (Glutose 15) 0 gm PO ONCE PRN; Protocol PRN Reason: Hypoglycemia Protocol Digoxin (Digoxin) 0.125 mg PO QOTHERDAY [facility] Last Admin: 03/25/18 09:06 Dose: 0.125 mg Docusate Sodium (Colace) 100 mg PO BID PRN PRN Reason: Constipation Enoxaparin Sodium (Lovenox) 60 mg SC Q12 [facility]; Protocol Last Admin: 03/25/18 09:05 Dose: 60 mg Glucagon (Glucagen Diagnostic Kit) 0 mg IM STAT PRN; Protocol PRN Reason: Hypoglycemia Protocol Vancomycin HCl 500 mg/ Sodium (Chloride) 100 mls @ 100 mls/hr IVPB Q12 [facility]; P rotocol Insulin Human Lispro (Humalog) 0 units SC ACHS [facility]; Protocol Last Admin: 03/25/18 12:50 Dose: Not Given Isosorbide Mononitrate (Imdur Er) 30 mg PO DAILY [facility] Last Admin: 03/25/18 09:06 Dose: 30 mg Losartan Potassium (Cozaar) 25 mg PO DAILY [facility] Last Admin: 03/25/18 09:07 Dose: Not Given Metoprolol Succinate (Toprol Xl) 25 mg PO DAILY [facility] Last Admin: 03/25/18 09:14 Dose: Not Given Morphine Sulfate (Morphine) 2 mg IVP Q6 PRN PRN Reason: Pain, severe (8-10) Pantoprazole Sodium (Protonix Ec Tab) 40 mg PO DAILY [facility] Last Admin: 03/25/18 09:06 Dose: 40 mg Sertraline HCl (Zoloft) 50 mg PO DAILY [facility] Last Admin: 03/25/18 09:15 Dose: 50 mg Tamsulosin HCl (Flomax) 0.4 mg PO DAILY [facility] Last Admin: 03/25/18 09:06 Dose: 0.4 mg Tiotropium [place] (Spiriva) 18 mcg INH DAILY [facility] Last Admin: 03/25/18 09:05 Dose: 18 mcg Tramadol HCl (Ultram) 50 mg PO Q6 PRN PRN Reason: Pain, moderate (4-7) Last Admin: 03/25/18 06:11 Dose: 50 mg - Labs Labs: 03/24/18 05:35 03/25/18 05:10 PT 15.1 Seconds (9.8-13.1) H 03/23/18 13:20 INR 1.4 03/23/18 13:20 APTT 33.1 Seconds (25.6-37.1) 03/23/18 13:20 Attending/Attestation - Attestation I have personally seen and examined this patient.: Yes I have fully participated in the care of the patient.: Yes I have reviewed all pertinent clinical information, including history, physical exam and plan: Yes Notes (Text): NSTEMI Again discussed benefits of Cardiac cath with patient however he refused. will cont medical mgt of NSTEMI Fall -CT of head : no bleed, no fracture -PT consult - Hip Xray Left leg Pain - Doppler US of LLE - Hip x ray
--- NOTE | 2018-03-25 09:38 | CP.PCM.PN ---
Subjective - Date & Time of Evaluation Date of Evaluation: 03/25/18 Time of Evaluation: 08:30 - Subjective Subjective: ONLY MINIMAL CHEST DISCOMFORT TODAY THAT HE BELIEVES IS MORE FROM MINOR TRAUMA FROM HIS FALL BREATHING BETTER Objective - Vital Signs/Intake and Output Vital Signs (last 24 hours): Temp Pulse Resp BP Pulse Ox 98.6 F 73 18 93/59 L 97 03/25/18 08:02 03/25/18 09:14 03/25/18 08:02 03/25/18 09:15 03/25/18 08:02 - Medications Medications: Current Medications Acetaminophen (Tylenol 325mg Tab) 650 mg PO Q6 PRN PRN Reason: Pain, moderate (4-7) Albuterol/Ipratropium (Duoneb 3 Mg/0.5 Mg (3 Ml) Ud) 3 ml IH RQ6 PRN PRN Reason: Wheezing Aspirin (Ecotrin) 81 mg PO DAILY [facility] Last Admin: 03/25/18 09:06 Dose: 81 mg Atorvastatin Calcium (Lipitor) 20 mg PO DAILY [facility] Last Admin: 03/25/18 09:07 Dose: 20 mg Clopidogrel Bisulfate (Plavix) 75 mg PO DAILY [facility] Last Admin: 03/25/18 09:06 Dose: 75 mg Dextrose (Dextrose 50% Inj) 0 ml IV STAT PRN; Protocol PRN Reason: Hypoglycemia Protocol Dextrose (Glutose 15) 0 gm PO ONCE PRN; Protocol PRN Reason: Hypoglycemia Protocol Digoxin (Digoxin) 0.125 mg PO QOTHERDAY [facility] Last Admin: 03/25/18 09:06 Dose: 0.125 mg Docusate Sodium (Colace) 100 mg PO BID PRN PRN Reason: Constipation Enoxaparin Sodium (Lovenox) 60 mg SC Q12 [facility]; Protocol Last Admin: 03/25/18 09:05 Dose: 60 mg Furosemide (Lasix) 40 mg IV DAILY [facility] Last Admin: 03/25/18 09:15 Dose: Not Given Glucagon (Glucagen Diagnostic Kit) 0 mg IM STAT PRN; Protocol PRN Reason: Hypoglycemia Protocol Insulin Human Lispro (Humalog) 0 units SC ACHS [facility]; Protocol Last Admin: 03/25/18 06:50 Dose: 1 units Isosorbide Mononitrate (Imdur Er) 30 mg PO DAILY [facility] Last Admin: 03/25/18 09:06 Dose: 30 mg Losartan Potassium (Cozaar) 25 mg PO DAILY [facility] Last Admin: 03/25/18 09:07 Dose: Not Given Metoprolol Succinate (Toprol Xl) 25 mg PO DAILY [facility] Last Admin: 03/25/18 09:14 Dose: Not Given Morphine Sulfate (Morphine) 2 mg IVP Q6 PRN PRN Reason: Pain, severe (8-10) Pantoprazole Sodium (Protonix Ec Tab) 40 mg PO DAILY [facility] Last Admin: 03/25/18 09:06 Dose: 40 mg Sertraline HCl (Zoloft) 50 mg PO DAILY [facility] Last Admin: 03/25/18 09:15 Dose: 50 mg Tamsulosin HCl (Flomax) 0.4 mg PO DAILY [facility] Last Admin: 03/25/18 09:06 Dose: 0.4 mg Tiotropium [place] (Spiriva) 18 mcg INH DAILY [facility] Last Admin: 03/25/18 09:05 Dose: 18 mcg Tramadol HCl (Ultram) 50 mg PO Q6 PRN PRN Reason: Pain, moderate (4-7) Last Admin: 03/25/18 06:11 Dose: 50 mg - Labs Labs: 03/24/18 05:35 03/25/18 05:10 PT 15.1 Seconds (9.8-13.1) H 03/23/18 13:20 INR 1.4 03/23/18 13:20 APTT 33.1 Seconds (25.6-37.1) 03/23/18 13:20 - Respiratory Exam Respiratory Exam: Clear to Ausculation Bilateral - Cardiovascular Exam Cardiovascular Exam: REGULAR RHYTHM, +S1, +S2 - Extremities Exam Extremities Exam: Normal Inspection - Additional Findings Additional findings: BP IS 93/58 THIS MORNING AND METOPROLOL, LOSARTAN AND FUROSEMIDE WERE HELD LAST TROPONIN WAS 0.17 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
[2018-03-26] MEDS: Insulin Lispro (humaLOG) 100 Units/ml Inj SC SCH ×4 (06:58→21:55)
[2018-03-26] MEDS: Enoxaparin 60 mg Syringe SC SCH ×2 (08:51→21:30)
[2018-03-26] MEDS: Pantoprazole 40 mg EC Tab PO SCH (08:51)
[2018-03-26] MEDS: Tiotropium 18 mcg Cap For Inhalation INH SCH (08:51)
--- NOTE | 2018-03-26 08:58 | CP.PCM.PN ---
Subjective - Date & Time of Evaluation Date of Evaluation: 03/26/18 Time of Evaluation: 08:00 - Subjective Subjective: NO CHEST PAIN TODAY FEELS A LITTLE BETTER WOULD LIKE TO GO TO TCU AFTER THIS ADMISSION FOR JUS Objective - Vital Signs/Intake and Output Vital Signs (last 24 hours): Temp Pulse Resp BP Pulse Ox 97.9 F 81 18 105/69 98 03/26/18 08:13 03/26/18 08:50 03/26/18 08:13 03/26/18 08:50 03/26/18 08:13 - Medications Medications: Current Medications Acetaminophen (Tylenol 325mg Tab) 650 mg PO Q6 PRN PRN Reason: Pain, moderate (4-7) Albuterol/Ipratropium (Duoneb 3 Mg/0.5 Mg (3 Ml) Ud) 3 ml IH RQ6 PRN PRN Reason: Wheezing Aspirin (Ecotrin) 81 mg PO DAILY [facility] Last Admin: 03/26/18 08:50 Dose: 81 mg Atorvastatin Calcium (Lipitor) 20 mg PO DAILY [facility] Last Admin: 03/25/18 09:07 Dose: 20 mg Clopidogrel Bisulfate (Plavix) 75 mg PO DAILY [facility] Last Admin: 03/26/18 08:50 Dose: 75 mg Dextrose (Dextrose 50% Inj) 0 ml IV STAT PRN; Protocol PRN Reason: Hypoglycemia Protocol Dextrose (Glutose 15) 0 gm PO ONCE PRN; Protocol PRN Reason: Hypoglycemia Protocol Digoxin (Digoxin) 0.125 mg PO QOTHERDAY [facility] Last Admin: 03/25/18 09:06 Dose: 0.125 mg Docusate Sodium (Colace) 100 mg PO BID PRN PRN Reason: Constipation Enoxaparin Sodium (Lovenox) 60 mg SC Q12 [facility]; Protocol Last Admin: 03/26/18 08:51 Dose: 60 mg Glucagon (Glucagen Diagnostic Kit) 0 mg IM STAT PRN; Protocol PRN Reason: Hypoglycemia Protocol Insulin Human Lispro (Humalog) 0 units SC ACHS [facility]; Protocol Last Admin: 03/26/18 06:58 Dose: Not Given Isosorbide Mononitrate (Imdur Er) 30 mg PO DAILY [facility] Last Admin: 03/26/18 08:50 Dose: 30 mg Losartan Potassium (Cozaar) 25 mg PO DAILY [facility] Last Admin: 03/26/18 08:50 Dose: 25 mg Metoprolol Succinate (Toprol Xl) 25 mg PO DAILY [facility] Last Admin: 03/25/18 09:14 Dose: Not Given Morphine Sulfate (Morphine) 2 mg IVP Q6 PRN PRN Reason: Pain, severe (8-10) Pantoprazole Sodium (Protonix Ec Tab) 40 mg PO DAILY [facility] Last Admin: 03/26/18 08:51 Dose: 40 mg Sertraline HCl (Zoloft) 50 mg PO DAILY [facility] Last Admin: 03/25/18 09:15 Dose: 50 mg Tamsulosin HCl (Flomax) 0.4 mg PO DAILY [facility] Last Admin: 03/26/18 08:50 Dose: 0.4 mg Tiotropium [place] (Spiriva) 18 mcg INH DAILY [facility] Last Admin: 03/26/18 08:51 Dose: 18 mcg Tramadol HCl (Ultram) 50 mg PO Q6 PRN PRN Reason: Pain, moderate (4-7) Last Admin: 03/25/18 16:53 Dose: 50 mg - Labs Labs: 03/24/18 05:35 03/25/18 05:10 PT 15.1 Seconds (9.8-13.1) H 03/23/18 13:20 INR 1.4 03/23/18 13:20 APTT 33.1 Seconds (25.6-37.1) 03/23/18 13:20 - Respiratory Exam Respiratory Exam: Clear to Ausculation Bilateral - Cardiovascular Exam Cardiovascular Exam: REGULAR RHYTHM, +S1, +S2 - Extremities Exam Additional comments: NO LE EDEMA - Additional Findings Additional findings: [employer] NSR DIG LEVEL 0.9 Assessment and Plan - Assessment and Plan (Free Text) Assessment: CAD WITH NSTEMI HYPERTENSION HISTORY HYPERLIPIDEMIA COPD MS Plan: CONTINUE ASPIRIN, CLOPIDOGREL, LOVENOX, LOSARTAN, METOPROLOL, ATORVASTATIN, DIGOXIN AND ISOSORBIDE I BELIEVE THE PATIENT WOULD BE A GOOD CANDIDATE FOR TCU UPON DISCHARGE
--- NOTE | 2018-03-26 10:35 | CP.PCM.PN ---
Subjective - Date & Time of Evaluation Date of Evaluation: 03/26/18 Time of Evaluation: 09:10 - Subjective Subjective: Patient seen and examined this morning at bedside. NAD, no acute event overnight, Afebrile. Patient is tolerating PO, ambulating to the bathroom, denies any chest pain, dizziness, SOB, urinary symptoms or abdominal pain. Reports Chronic back and Hip pain. Objective - Vital Signs/Intake and Output Vital Signs (last 24 hours): Temp Pulse Resp BP Pulse Ox 97.9 F 81 18 105/69 98 03/26/18 08:13 03/26/18 08:50 03/26/18 08:13 03/26/18 08:50 03/26/18 08:13 - Medications Medications: Current Medications Acetaminophen (Tylenol 325mg Tab) 650 mg PO Q6 PRN PRN Reason: Pain, moderate (4-7) Albuterol/Ipratropium (Duoneb 3 Mg/0.5 Mg (3 Ml) Ud) 3 ml IH RQ6 PRN PRN Reason: Wheezing Aspirin (Ecotrin) 81 mg PO DAILY [facility] Last Admin: 03/26/18 08:50 Dose: 81 mg Atorvastatin Calcium (Lipitor) 20 mg PO DAILY [facility] Last Admin: 03/26/18 08:52 Dose: 20 mg Clopidogrel Bisulfate (Plavix) 75 mg PO DAILY [facility] Last Admin: 03/26/18 08:50 Dose: 75 mg Dextrose (Dextrose 50% Inj) 0 ml IV STAT PRN; Protocol PRN Reason: Hypoglycemia Protocol Dextrose (Glutose 15) 0 gm PO ONCE PRN; Protocol PRN Reason: Hypoglycemia Protocol Digoxin (Digoxin) 0.125 mg PO QOTHERDAY [facility] Last Admin: 03/25/18 09:06 Dose: 0.125 mg Docusate Sodium (Colace) 100 mg PO BID PRN PRN Reason: Constipation Enoxaparin Sodium (Lovenox) 60 mg SC Q12 [facility]; Protocol Last Admin: 03/26/18 08:51 Dose: 60 mg Glucagon (Glucagen Diagnostic Kit) 0 mg IM STAT PRN; Protocol PRN Reason: Hypoglycemia Protocol Insulin Human Lispro (Humalog) 0 units SC ACHS [facility]; Protocol Last Admin: 03/26/18 06:58 Dose: Not Given Isosorbide Mononitrate (Imdur Er) 30 mg PO DAILY [facility] Last Admin: 03/26/18 08:50 Dose: 30 mg Losartan Potassium (Cozaar) 25 mg PO DAILY [facility] Last Admin: 03/26/18 08:50 Dose: 25 mg Metoprolol Succinate (Toprol Xl) 25 mg PO DAILY [facility] Last Admin: 03/25/18 09:14 Dose: Not Given Morphine Sulfate (Morphine) 2 mg IVP Q6 PRN PRN Reason: Pain, severe (8-10) Pantoprazole Sodium (Protonix Ec Tab) 40 mg PO DAILY [facility] Last Admin: 03/26/18 08:51 Dose: 40 mg Sertraline HCl (Zoloft) 50 mg PO DAILY [facility] Last Admin: 03/25/18 09:15 Dose: 50 mg Tamsulosin HCl (Flomax) 0.4 mg PO DAILY [facility] Last Admin: 03/26/18 08:50 Dose: 0.4 mg Tiotropium [place] (Spiriva) 18 mcg INH DAILY [facility] Last Admin: 03/26/18 08:51 Dose: 18 mcg Tramadol HCl (Ultram) 50 mg PO Q6 PRN PRN Reason: Pain, moderate (4-7) Last Admin: 03/25/18 16:53 Dose: 50 mg - Labs Labs: 03/24/18 05:35 03/25/18 05:10 PT 15.1 Seconds (9.8-13.1) H 03/23/18 13:20 INR 1.4 03/23/18 13:20 APTT 33.1 Seconds (25.6-37.1) 03/23/18 13:20 - Constitutional Appears: No Acute Distress - Head Exam Head Exam: NORMOCEPHALIC - Eye Exam Eye Exam: Normal appearance, PERRL - ENT Exam ENT Exam: Mucous Membranes Moist - Neck Exam Neck Exam: Full ROM, Normal Inspection - Respiratory Exam Respiratory Exam: Clear to Ausculation Bilateral, NORMAL BREATHING PATTERN. absent: Accessory Muscle Use, Chest Wall Tenderness, Decreased Breath Sounds, Respiratory Distress - Cardiovascular Exam Cardiovascular Exam: REGULAR RHYTHM, +S1, +S2 - GI/Abdominal Exam GI & Abdominal Exam: Soft, Normal Bowel Sounds. absent: Distended, Tenderness - Extremities Exam Extremities Exam: Normal Capillary Refill, Normal Inspection. absent: Calf Tenderness, Joint Swelling, Pedal Edema, Tenderness - Back Exam Back Exam: NORMAL INSPECTION. absent: CVA tenderness (L), CVA tenderness (R) - Neurological Exam Neurological Exam: Alert, Awake, CN II-XII Intact, Oriented x3 Neuro motor strength exam: Left Upper Extremity: 4, Right Upper Extremity: 4, Left Lower Extremity: 4, Right Lower Extremity: 4 - Psychiatric Exam Psychiatric exam: Normal Affect - Skin Skin Exam: Normal Color Assessment and Plan - Assessment and Plan (Free Text) Assessment: A/P: 72 years old male with hx of COPD, DM, HTN. CAD s/p PCI X3, refusing cardiac cath admitted to hospital for evaluation and treatment of NSTEMI. NSTEMI - Acute - Consult, Dr House cardiology, Appreciated - Patient doesn't want Cardiac cath (Understands risks and benefits) - C/w Aspirin, Clopidogrel, Statin, Digoxin, nitrates, Losartan, BB and lovenox 60mg (Lasix stopped), Digoxin level today 0.9 - C/w pain management with Morphine and Ultram S/P Fall/headache/LLE pain - Acute, no neuro deficit - Morphine/Trmadol for pain - CT head: No acute pathology - Follow up official Hip/pelvis xray and LE D-U/S - Possible TCU tomorrow for further evaluation and treatment Systolic CHF with reduced EF - Chronic - Stable - Last echo in 12/2017 shows EF =20 with LVH - Stop Lasix, Continue with Losartan and BB Deconditioning, Gait Imbalance - Physical therapy Consult for eval and treat - Possible TCU tomorrow for further evaluation and treatment Low Blood Pressure - Stop Lasix, Continue with Losartan and BB CAD - C/w Metoprolol, Aspirin, Losartan, Clopidogrel, Statin, Digoxin, nitrates, lovenox 60mg DM II with Hyperglycemia - Regular Insulin sliding scale according to accucheck - Hypoglycemia protocol - HBA1C 7.4 on 03/2018 COPD - Chronic, stable - C/W Spiriva and albuterol Anxiety/depression - c/w Zoloft DVT prophylaxis with Lovenox DNR/DNI Surrogate decision maker - Marianna Webb
--- NOTE | 2018-03-26 13:19 | RAD ---
Date of service: 03/25/2018 PROCEDURE: BILATERAL HIPS WITH PELVIS RADIOGRAPHS HISTORY: fall COMPARISON: None available. TECHNIQUE: Frontal views of the bilateral hips have been submitted as well as pelvis. In addition frog-leg lateral views of the bilateral hip joints of also been submitted. FINDINGS: No acute fracture dislocation bilateral hip joints. Diffuse osteopenia suggests osteoporosis throughout all bony elements imaged. Degenerative sclerosis appreciate bilateral hip and sacroiliac joints symmetrically. No erosive or other destructive bony findings are identified bilaterally. The pubic symphysis is intact swells remaining pubic bony anatomy. Iliac crests are intact as well as the sacrum. No, retained fecal material at the upper rectum obscures lower sacrum somewhat. Soft tissues reflect likely distention of the urinary bladder. IMPRESSION: No acute fracture or dislocation bilateral hip joints. Degenerative osteoarthritis seen at the bilateral hip and sacroiliac joints symmetrically. Pelvic ring is intact. Diffuse osteopenia suggests osteoporosis.
--- NOTE | 2018-03-26 16:37 | US ---
Date of service: 03/25/2018 HISTORY: Traumatic event 1 day ago. Deep vein thrombosis suspected PRIORS: None. FINDINGS: 2-D, color and duplex Doppler analysis of the lower extremity venous circulation using routine protocol from the femoral veins through the popliteal veins. Venous compressibility: Normal. Flow and augmentation patterns: Normal. Visualized veins upper third of calf: Normal. Friedman cyst: None. IMPRESSION: No sonographic or Doppler evidence for DVT in left lower extremity.
[2018-03-27 05:40] LABS: BLOOD UREA NITROGEN 18 mg/dl (9-20); CALCIUM 8.2 mg/dL (8.4-10.2); GFR NON-AFRICAN AMERICAN > 60
[2018-03-27 05:43] LABS: HEMOGLOBIN 10.9 g/dL (12.0-18.0); MEAN CELL VOLUME 93.8 fl (80.0-94.0); MEAN CORPUSCULAR HGB CONC 34.1 g/dL (33.0-37.0); RBC 3.41 Mil/uL (4.40-5.90); RED CELL DISTRIBUTION WIDTH 13.9 % (11.5-14.5); WHITE BLOOD COUNT 6.2 K/uL (4.8-10.8)
[2018-03-27] MEDS: Insulin Lispro (humaLOG) 100 Units/ml Inj SC SCH (06:36)
[2018-03-27 08:40] VITALS: RESP 20; O2SAT 100
[2018-03-27] MEDS: Digoxin 125 mcg (0.125 mg) Tab PO SCH (08:47)
[2018-03-27] MEDS: Enoxaparin 60 mg Syringe SC SCH (08:48)
[2018-03-27] MEDS: Pantoprazole 40 mg EC Tab PO SCH (08:48)
[2018-03-27] MEDS: Tiotropium 18 mcg Cap For Inhalation INH SCH (08:48)
[2018-03-27 08:49] VITALS: PULSE 70
--- NOTE | 2018-03-27 10:37 | CP.PCM.DIS ---
<Herson Earl - Last Filed: 03/27/18 15:17> Provider - Provider Date of Admission: 03/24/18 11:12 Attending physician: Miguel Childers MD Primary care physician: Maximo House MD Consults: Cardio, Dr. House Time Spent in preparation of Discharge (in minutes): 40 Diagnosis - Discharge Diagnosis (1) Non-ST elevation (NSTEMI) myocardial infarction Status: Acute Comment: - Patient doesn't want Cardiac cath. - C/w Aspirin, Clopidogrel, Statin, Digoxin, nitrates, Losartan, BB and lovenox 60mg (2) Lower extremity pain, left Status: Acute Comment: - Hip/Pelvis XR negative for any acute changes. - U/S LEs: No DVT (3) Systolic heart failure Status: Acute Comment: - Last echo in 12/2017 shows EF =20 with LVH (4) Cachexia Status: Acute (5) CAD (coronary artery disease) Status: Acute Comment: - C/w Metoprolol, Aspirin, Losartan, Clopidogrel, Statin, Digoxin, nitrates, lovenox 60mg (6) Diabetes Status: Acute Comment: - HBA1C 7.4 on 03/2018 (7) COPD (chronic obstructive pulmonary disease) Status: Acute Comment: - C/W Spiriva and albuterol (8) Anxiety Status: Acute Comment: - c/w Zoloft (9) Depression Status: Acute Hospital Course - Lab Results Lab Results: Micro Results 03/23/18 16:20 Blood-Venous Blood Culture - Final Staphylococcus Aureus 03/23/18 16:20 Blood-Venous Gram Stain - Final 03/25/18 13:27 Blood-Venous Blood Culture - Preliminary NO GROWTH AFTER 24 HOURS 03/25/18 13:15 Blood-Venous Blood Culture - Preliminary NO GROWTH AFTER 24 HOURS 03/25/18 13:15 Blood-Venous Blood Culture - Preliminary NO GROWTH AFTER 24 HOURS Most Recent Lab Values WBC 6.2 K/uL (4.8-10.8) 03/27/18 04:50 RBC 3.41 Mil/uL (4.40-5.90) L 03/27/18 04:50 Hgb 10.9 g/dL (12.0-18.0) L D 03/27/18 04:50 Hct 32.0 % (35.0-51.0) L 03/27/18 04:50 MCV 93.8 fl (80.0-94.0) 03/27/18 04:50 MCH 32.0 pg (27.0-31.0) H 03/27/18 04:50 MCHC 34.1 g/dL (33.0-37.0) 03/27/18 04:50 RDW 13.9 % (11.5-14.5) 03/27/18 04:50 Plt Count 159 K/uL (130-400) 03/27/18 04:50 MPV 8.4 fl (7.2-11.7) 03/24/18 05:35 Neut % (Auto) 65.6 % (50.0-75.0) 03/24/18 05:35 Lymph % (Auto) 20.5 % (20.0-40.0) 03/24/18 05:35 Orange % (Auto) 12.1 % (0.0-10.0) H 03/24/18 05:35 Eos % (Auto) 1.0 % (0.0-4.0) 03/24/18 05:35 Baso % (Auto) 0.8 % (0.0-2.0) 03/24/18 05:35 Neut # (Auto) 5.3 K/uL (1.8-7.0) 03/24/18 05:35 Lymph # (Auto) 1.7 K/uL (1.0-4.3) 03/24/18 05:35 [place] # (Auto) 1.0 K/uL (0.0-0.8) H 03/24/18 05:35 Eos # (Auto) 0.1 K/uL (0.0-0.7) 03/24/18 05:35 Baso # (Auto) 0.1 K/uL (0.0-0.2) 03/24/18 05:35 Neutrophils % (Manual) 82 % (42-75) H 03/23/18 13:20 Lymphocytes % (Manual) 10 % (20-50) L 03/23/18 13:20 Monocytes % (Manual) 8 % (0-10) 03/23/18 13:20 Platelet Estimate Normal (NORMAL) 03/23/18 13:20 RBC Morphology Normal (NORMAL) 03/23/18 13:20 PT 15.1 Seconds (9.8-13.1) H 03/23/18 13:20 INR 1.4 03/23/18 13:20 APTT 33.1 Seconds (25.6-37.1) 03/23/18 13:20 Sodium 135 mmol/l (132-148) 03/27/18 04:50 Potassium 4.4 MMOL/L (3.6-5.0) 03/27/18 04:50 Chloride 101 mmol/L (98-107) 03/27/18 04:50 Carbon Dioxide 26 mmol/L (22-30) 03/27/18 04:50 Anion Gap 12 (-20) 03/27/18 04:50 BUN 18 mg/dl (9-20) 03/27/18 04:50 Creatinine 1.1 mg/dl (0.8-1.5) 03/27/18 04:50 Est GFR ( Amer) > 60 03/27/18 04:50 Est GFR (Non-Af Amer) > 60 03/27/18 04:50 POC Glucose (mg/dL) 136 mg/dL (65-110) H 03/26/18 15:48 Random Glucose 153 mg/dL (75-110) H 03/27/18 04:50 Hemoglobin A1c 7.4 % (4.2-6.5) H 03/24/18 05:35 Calcium 8.2 mg/dL (8.4-10.2) L 03/27/18 04:50 Total Bilirubin 0.6 mg/dl (0.2-1.3) 03/23/18 13:20 AST 30 U/L (17-59) 03/23/18 13:20 ALT 21 U/L (21-72) 03/23/18 13:20 Alkaline Phosphatase 65 U/L (38-126) 03/23/18 13:20 Troponin I 0.1700 ng/mL (0.00-0.120) H* 03/24/18 15:44 NT-Pro-B Natriuret Pep 19425 pg/ml (0-900) H 03/23/18 13:20 Total Protein 7.5 G/DL (6.3-8.2) 03/23/18 13:20 Albumin 4.1 g/dL (3.5-5.0) 03/23/18 13:20 Globulin 3.3 gm/dL (2.2-3.9) 03/23/18 13:20 Albumin/Globulin Ratio 1.2 (1.0-2.1) 03/23/18 13:20 Triglycerides 92 mg/DL (0-149) D 03/24/18 05:35 Cholesterol 77 mg/dL (0-199) 03/24/18 05:35 LDL Cholesterol Direct 41 mg/dL (0-129) 03/24/18 05:35 HDL Cholesterol 19 MG/DL (30-70) L 03/24/18 05:35 Urine Color Yellow (YELLOW) 03/23/18 16:22 Urine Clarity Clear (Clear) 03/23/18 16:22 Urine pH 5.0 (5.0-8.0) 03/23/18 16:22 Ur Specific [place] 1.013 (1.003-1.030) 03/23/18 16:22 Urine Protein Negative mg/dL (NEGATIVE) 03/23/18 16:22 Urine Glucose (UA) >=500 mg/dL (Normal) 03/23/18 16:22 Urine Ketones Negative mg/dL (NEGATIVE) 03/23/18 16:22 Urine Blood Moderate (NEGATIVE) 03/23/18 16:22 Urine Nitrate Negative (NEGATIVE) 03/23/18 16:22 Urine Bilirubin Negative (NEGATIVE) 03/23/18 16:22 Urine Urobilinogen 0.2-1.0 mg/dL (0.2-1.0) 03/23/18 16:22 Ur Leukocyte Esterase Neg Neena/uL (Negative) 03/23/18 16:22 Urine RBC (Auto) 14 /hpf (0-3) H 03/23/18 16:22 Urine Microscopic WBC 1 /hpf (0-5) 03/23/18 16:22 Digoxin 0.9 ng/mL (0.8-2.0) 03/26/18 04:30 - Hospital Course Hospital Course: 72 years old male with PMH of COPD, DM type II, HTN, CAD s/p PCI X3, deconditioning, and refusing cardiac cath admitted to hospital for evaluation and treatment of NSTEMI. On admission, patient was found to have Elevated Troponion and RBBB with T waves inversions on EKG. Cardio, Dr. House consulted, Patient refused Cath. PT/OT consulted who recommended TCU for further evaluation and treatment. Patient is stable for TCU for further evaluation and treatment. - C/w Aspirin, Clopidogrel, Statin, Digoxin, nitrates, Losartan, BB, Spiriva, albutero and Zoloft - Stop Lovenox 6omg - Stop Lasix due to hypotension Discharge Exam - Head Exam Head Exam: NORMOCEPHALIC - Eye Exam Eye Exam: Normal appearance, PERRL Pupil Exam: NORMAL ACCOMODATION - ENT Exam ENT Exam: Normal Exam - Neck Exam Neck exam: Normal Inspection - Respiratory Exam Respiratory Exam: Clear to PA & Lateral, NORMAL BREATHING PATTERN. absent: Accessory Muscle Use, Decreased Breath Sounds - Cardiovascular Exam Cardiovascular Exam: REGULAR RHYTHM, +S1, +S2 - GI/Abdominal Exam GI & Abdominal Exam: Normal Bowel Sounds, Soft. absent: Tenderness - Extremities Exam Extremities exam: normal capillary refill - Back Exam Back exam: absent: CVA tenderness (L), CVA tenderness (R) - Neurological Exam Neurological exam: Alert, CN II-XII Intact, Oriented x3 - Psychiatric Exam Psychiatric exam: Normal Affect - Skin Skin Exam: Normal Color Discharge Plan - Follow Up Plan Condition: STABLE Disposition: TRANSF TO SNF Instructions: Chest Pain (DC) Referrals: Maximo House MD [Primary Care Provider] - <Miguel Childers - Last Filed: 03/27/18 16:47> Provider - Provider Date of Admission: 03/24/18 11:12 Attending physician: Miguel Childers MD Primary care physician: Maximo House MD Hospital Course - Lab Results Lab Results: Micro Results 03/25/18 13:27 Blood-Venous Blood Culture - Preliminary NO GROWTH AFTER 48 HOURS 03/25/18 13:15 Blood-Venous Blood Culture - Preliminary NO GROWTH AFTER 48 HOURS 03/25/18 13:15 Blood-Venous Blood Culture - Preliminary NO GROWTH AFTER 48 HOURS 03/23/18 16:20 Blood-Venous Blood Culture - Final Staphylococcus Aureus 03/23/18 16:20 Blood-Venous Gram Stain - Final Most Recent Lab Values WBC 6.2 K/uL (4.8-10.8) 03/27/18 04:50 RBC 3.41 Mil/uL (4.40-5.90) L 03/27/18 04:50 Hgb 10.9 g/dL (12.0-18.0) L D 03/27/18 04:50 Hct 32.0 % (35.0-51.0) L 03/27/18 04:50 MCV 93.8 fl (80.0-94.0) 03/27/18 04:50 MCH 32.0 pg (27.0-31.0) H 03/27/18 04:50 MCHC 34.1 g/dL (33.0-37.0) 03/27/18 04:50 RDW 13.9 % (11.5-14.5) 03/27/18 04:50 Plt Count 159 K/uL (130-400) 03/27/18 04:50 MPV 8.4 fl (7.2-11.7) 03/24/18 05:35 Neut % (Auto) 65.6 % (50.0-75.0) 03/24/18 05:35 Lymph % (Auto) 20.5 % (20.0-40.0) 03/24/18 05:35 Orange % (Auto) 12.1 % (0.0-10.0) H 03/24/18 05:35 Eos % (Auto) 1.0 % (0.0-4.0) 03/24/18 05:35 Baso % (Auto) 0.8 % (0.0-2.0) 03/24/18 05:35 Neut # (Auto) 5.3 K/uL (1.8-7.0) 03/24/18 05:35 Lymph # (Auto) 1.7 K/uL (1.0-4.3) 03/24/18 05:35 Orange # (Auto) 1.0 K/uL (0.0-0.8) H 03/24/18 05:35 Eos # (Auto) 0.1 K/uL (0.0-0.7) 03/24/18 05:35 Baso # (Auto) 0.1 K/uL (0.0-0.2) 03/24/18 05:35 Neutrophils % (Manual) 82 % (42-75) H 03/23/18 13:20 Lymphocytes % (Manual) 10 % (20-50) L 03/23/18 13:20 Monocytes % (Manual) 8 % (0-10) 03/23/18 13:20 Platelet Estimate Normal (NORMAL) 03/23/18 13:20 RBC Morphology Normal (NORMAL) 03/23/18 13:20 PT 15.1 Seconds (9.8-13.1) H 03/23/18 13:20 INR 1.4 03/23/18 13:20 APTT 33.1 Seconds (25.6-37.1) 03/23/18 13:20 Sodium 135 mmol/l (132-148) 03/27/18 04:50 Potassium 4.4 MMOL/L (3.6-5.0) 03/27/18 04:50 Chloride 101 mmol/L (98-107) 03/27/18 04:50 Carbon Dioxide 26 mmol/L (22-30) 03/27/18 04:50 Anion Gap 12 (10-20) 03/27/18 04:50 BUN 18 mg/dl (9-20) 03/27/18 04:50 Creatinine 1.1 mg/dl (0.8-1.5) 03/27/18 04:50 Est GFR ( Amer) > 60 03/27/18 04:50 Est GFR (Non-Af Amer) > 60 03/27/18 04:50 POC Glucose (mg/dL) 130 mg/dL (65-110) H 03/27/18 11:20 Random Glucose 153 mg/dL (75-110) H 03/27/18 04:50 Hemoglobin A1c 7.4 % (4.2-6.5) H 03/24/18 05:35 Calcium 8.2 mg/dL (8.4-10.2) L 03/27/18 04:50 Total Bilirubin 0.6 mg/dl (0.2-1.3) 03/23/18 13:20 AST 30 U/L (17-59) 03/23/18 13:20 ALT 21 U/L (21-72) 03/23/18 13:20 Alkaline Phosphatase 65 U/L (38-126) 03/23/18 13:20 Troponin I 0.1700 ng/mL (0.00-0.120) H* 03/24/18 15:44 NT-Pro-B Natriuret Pep 65260 pg/ml (0-900) H 03/23/18 13:20 Total Protein 7.5 G/DL (6.3-8.2) 03/23/18 13:20 Albumin 4.1 g/dL (3.5-5.0) 03/23/18 13:20 Globulin 3.3 gm/dL (2.2-3.9) 03/23/18 13:20 Albumin/Globulin Ratio 1.2 (1.0-2.1) 03/23/18 13:20 Triglycerides 92 mg/DL (0-149) D 03/24/18 05:35 Cholesterol 77 mg/dL (0-199) 03/24/18 05:35 LDL Cholesterol Direct 41 mg/dL (0-129) 03/24/18 05:35 HDL Cholesterol 19 MG/DL (30-70) L 03/24/18 05:35 Urine Color Yellow (YELLOW) 03/23/18 16:22 Urine Clarity Clear (Clear) 03/23/18 16:22 Urine pH 5.0 (5.0-8.0) 03/23/18 16:22 Ur Specific [place] 1.013 (1.003-1.030) 03/23/18 16:22 Urine Protein Negative mg/dL (NEGATIVE) 03/23/18 16:22 Urine Glucose (UA) >=500 mg/dL (Normal) 03/23/18 16:22 Urine Ketones Negative mg/dL (NEGATIVE) 03/23/18 16:22 Urine Blood Moderate (NEGATIVE) 03/23/18 16:22 Urine Nitrate Negative (NEGATIVE) 03/23/18 16:22 Urine Bilirubin Negative (NEGATIVE) 03/23/18 16:22 Urine Urobilinogen 0.2-1.0 mg/dL (0.2-1.0) 03/23/18 16:22 Ur Leukocyte Esterase Neg Neena/uL (Negative) 03/23/18 16:22 Urine RBC (Auto) 14 /hpf (0-3) H 03/23/18 16:22 Urine Microscopic WBC 1 /hpf (0-5) 03/23/18 16:22 Digoxin 0.9 ng/mL (0.8-2.0) 03/26/18 04:30 Attending/Attestation - Attestation I have personally seen and examined this patient.: Yes I have fully participated in the care of the patient.: Yes I have reviewed all pertinent clinical information, including history, physical exam and plan: Yes
--- NOTE | 2018-03-27 10:50 | CP.PCM.PN ---
Subjective - Date & Time of Evaluation Date of Evaluation: 03/27/18 Time of Evaluation: 08:30 - Subjective Subjective: NO CHEST PAIN BREATHING WELL Objective - Vital Signs/Intake and Output Vital Signs (last 24 hours): Temp Pulse Resp BP Pulse Ox 100.1 F H 71 20 111/69 100 03/27/18 08:39 03/27/18 09:00 03/27/18 08:39 03/27/18 08:47 03/27/18 08:39 - Medications Medications: Current Medications Acetaminophen (Tylenol 325mg Tab) 650 mg PO Q6 PRN PRN Reason: Pain, moderate (4-7) Albuterol/Ipratropium (Duoneb 3 Mg/0.5 Mg (3 Ml) Ud) 3 ml IH RQ6 PRN PRN Reason: Wheezing Aspirin (Ecotrin) 81 mg PO DAILY [facility] Last Admin: 03/27/18 08:47 Dose: 81 mg Atorvastatin Calcium (Lipitor) 20 mg PO DAILY [facility] Last Admin: 03/27/18 08:49 Dose: 20 mg Clopidogrel Bisulfate (Plavix) 75 mg PO DAILY [facility] Last Admin: 03/27/18 08:48 Dose: 75 mg Dextrose (Dextrose 50% Inj) 0 ml IV STAT PRN; Protocol PRN Reason: Hypoglycemia Protocol Dextrose (Glutose 15) 0 gm PO ONCE PRN; Protocol PRN Reason: Hypoglycemia Protocol Digoxin (Digoxin) 0.125 mg PO QOTHERDAY [facility] Last Admin: 03/27/18 08:47 Dose: 0.125 mg Docusate Sodium (Colace) 100 mg PO BID PRN PRN Reason: Constipation Enoxaparin Sodium (Lovenox) 60 mg SC Q12 [facility]; Protocol Last Admin: 03/27/18 08:48 Dose: 60 mg Glucagon (Glucagen Diagnostic Kit) 0 mg IM STAT PRN; Protocol PRN Reason: Hypoglycemia Protocol Insulin Human Lispro (Humalog) 0 units SC ACHS [facility]; Protocol Last Admin: 03/27/18 06:36 Dose: 1 units Isosorbide Mononitrate (Imdur Er) 30 mg PO DAILY [facility] Last Admin: 03/27/18 08:47 Dose: 30 mg Losartan Potassium (Cozaar) 25 mg PO DAILY [facility] Last Admin: 03/27/18 08:47 Dose: 25 mg Metoprolol Succinate (Toprol Xl) 25 mg PO DAILY [facility] Last Admin: 03/25/18 09:14 Dose: Not Given Morphine Sulfate (Morphine) 2 mg IVP Q6 PRN PRN Reason: Pain, severe (8-10) Pantoprazole Sodium (Protonix Ec Tab) 40 mg PO DAILY [facility] Last Admin: 03/27/18 08:48 Dose: 40 mg Sertraline HCl (Zoloft) 50 mg PO DAILY [facility] Last Admin: 03/27/18 08:48 Dose: 50 mg Tamsulosin HCl (Flomax) 0.4 mg PO DAILY [facility] Last Admin: 03/27/18 08:48 Dose: 0.4 mg Tiotropium [place] (Spiriva) 18 mcg INH DAILY [facility] Last Admin: 03/27/18 08:48 Dose: 18 mcg Tramadol HCl (Ultram) 50 mg PO Q6 PRN PRN Reason: Pain, moderate (4-7) Last Admin: 03/27/18 05:09 Dose: 50 mg - Labs Labs: 03/27/18 04:50 03/27/18 04:50 PT 15.1 Seconds (9.8-13.1) H 03/23/18 13:20 INR 1.4 03/23/18 13:20 APTT 33.1 Seconds (25.6-37.1) 03/23/18 13:20 - Respiratory Exam Respiratory Exam: Clear to Ausculation Bilateral - Cardiovascular Exam Cardiovascular Exam: REGULAR RHYTHM, +S1, +S2 - Extremities Exam Additional comments: NO LE EDEMA Assessment and Plan - Assessment and Plan (Free Text) Assessment: CAD WITH NEW NSTEMI-STABLE HYPERTENSION HISTORY COPD HYPERLIPIDEMIA MS Plan: FOR DISCHARGE TODAY CONTINUE METOPROLOL, LOSARTAN, ISOSORBIDE, DIGOXIN, ATORVASTATIN, ASPIRIN, CLOPIDOGREL OV WITH ME IN 1 TO 2 WEEKS-PATIENT INSTRUCTED TO CALL MY OFFICE FOR AN APPOINTMENT
[2018-03-27 13:14] VITALS: BP 100/57; PULSE 65; TEMP 100
--- NOTE | 2018-03-29 11:14 | PQF ---
PROVIDER RESPONSE TEXT: Repeat blood cultures were negative REVIEWER QUERY TEXT: Documentation Clarification Your help is requested in clarifying the following clinical documentation, if you can please further specify in the medical record and discharge summary. Progress note of 03/25: As per Lab: Patient's blood culture growing gram + cocci ( possibly contaminat ed ). Will repeat blood Culture today and start patient on Vanco for now No further mention of the blood culture. Please clarify if there is an associated diagnosis or not regarding the positive blood culture. The patient's Clinical Indicators include: Admitted with an AMI. Refuses cardiac catheterization Query created by: Leslee Padilla on 03/27/2018 1:08 PM Electronically signed by: Miguel Childers MD 03/29/2018 11:11 AM
== END 2018-03-27 13:10 | DRG 281 ==
LOC: H.ER 11:29 → SUPCPDRO 11:29 → H.ERHOLD 15:29 → H.TEL 03-24 10:42 → OBSVTOIN 03-24 11:12
DX: I21.4 Non-ST elevation (NSTEMI) myocardial infarction (principal); I50.22 Chronic systolic (congestive) heart failure; R64 Cachexia; I45.10 Unspecified right bundle-branch block; E11.65 Type 2 diabetes mellitus with hyperglycemia; I11.0 Hypertensive heart disease with heart failure; E78.00 Pure hypercholesterolemia, unspecified; E78.5 Hyperlipidemia, unspecified; G35 Multiple sclerosis; I25.10 Atherosclerotic heart disease of native coronary artery without angina pectoris; Z95.5 Presence of coronary angioplasty implant and graft; Z86.73 Personal history of transient ischemic attack (TIA), and cerebral infarction without residual deficits; I25.2 Old myocardial infarction; J43.9 Emphysema, unspecified; F17.210 Nicotine dependence, cigarettes, uncomplicated; F41.9 Anxiety disorder, unspecified; F32.9 Major depressive disorder, single episode, unspecified; M19.90 Unspecified osteoarthritis, unspecified site; Z88.0 Allergy status to penicillin; Z88.6 Allergy status to analgesic agent; Z23 Encounter for immunization; Z66 Do not resuscitate; M79.605 Pain in left leg; I95.9 Hypotension, unspecified; Z53.20 Procedure and treatment not carried out because of patient's decision for unspecified reasons

== ENCOUNTER 2018-03-27 13:01 | Inpatient (IN) | payer OTHER ==
[2018-03-27 13:58] VITALS: BMI 18.9
[2018-03-27] MEDS ORDERED: Albuterol-Ipratrop 3 mg / 0.5 (3 ml) UD IH PRN (18:33)
[2018-03-28] MEDS: Enoxaparin 40 mg Syringe SC SCH (08:25)
[2018-03-28] MEDS: Tiotropium 18 mcg Cap For Inhalation INH SCH (08:25)
[2018-03-28] MEDS: Metoprolol Succinate 25 mg XL Tab PO SCH (08:27)
[2018-03-28] MEDS: Pantoprazole 40 mg EC Tab PO SCH (08:27)
--- NOTE | 2018-03-28 10:21 | CP.PCM.CON ---
History of Present Illness - History of Present Illness History of Present Illness: ASKED TO FOLLOW THIS PATIENT IN TCU. HE HAS A HISTORY OF AND IWMI ABOUT 4 YEARS AGO AND BROUGHT TO THE ER AND AND A [facility] WAS CALLED AND HE HAD AN EMERGENCY CC AND STENT INSERTIONS AT [facility]. SINCE THEN HE HAD 3 NSTEMIS AND REFUSED INVASIVE FOSTER AND TREATMENT AND OPTED FOR ONLY CONSERVATIVE MEDICAL TREATMENT. HE ALSO HAS A HISTORY OF HYPERTENSION, HYPERLIPIDEMIA, COPD AND MS. HE IS NOW CHEST PAIN FREE AND IS BREATHING WELL. Past Patient History - Infectious Disease Hx of Infectious Diseases: None - Tetanus Immunizations Tetanus Immunization: Unknown - Past Medical History & Family History Past Medical History?: Yes - Past Social History Smoking Status: Heavy Smoker > 10 Cigarettes Daily - CARDIAC Hx Cardiac Disorders: Yes Hx Angina: Yes Hx Cardia Arrhythmia: Yes Hx Heart Attack: Yes Hx Hypercholesterolemia: Yes Hx Hypertension: Yes - PULMONARY Hx Respiratory Disorders: Yes Hx Asthma: Yes Hx Chronic Obstructive Pulmonary Disease (COPD): Yes Hx Emphysema: Yes Hx Pneumonia: Yes - NEUROLOGICAL Hx Neurological Disorder: Yes - HEENT Hx HEENT Problems: No - RENAL Hx Chronic Kidney Disease: No - ENDOCRINE/METABOLIC Hx Endocrine Disorders: Yes Hx Diabetes Mellitus Type 2: Yes - HEMATOLOGICAL/ONCOLOGICAL Hx AIDS: No Hx Anemia: Yes Hx Human Immunodeficiency Virus (HIV): No - INTEGUMENTARY Hx Dermatological Problems: No - MUSCULOSKELETAL/RHEUMATOLOGICAL Hx Arthritis: Yes Hx Falls: Yes (4x1 day as per pt.) Hx Fractures: Yes (bilateral feet) - GASTROINTESTINAL Hx Gastrointestinal Disorders: No - GENITOURINARY/GYNECOLOGICAL Hx Genitourinary Disorders: Yes - PSYCHIATRIC Hx Anxiety: Yes Hx Depression: Yes Hx Substance Use: No - SURGICAL HISTORY Hx Cardiac Catheterization: Yes Hx Cholecystectomy: Yes Hx Coronary Artery Bypass Graft: No Hx Coronary Stent: Yes (x3) - ANESTHESIA Hx Anesthesia: Yes Hx Anesthesia Reactions: No Hx Malignant Hyperthermia: No Meds Allergies/Adverse Reactions: Allergies Allergy/AdvReac Type Severity Reaction Status Date / Time ampicillin Allergy RASH Verified 03/27/18 13:55 codeine AdvReac HEADACHE Verified 03/27/18 13:55 - Medications Medications: Current Medications Acetaminophen (Tylenol 325mg Tab) 650 mg PO Q4 PRN PRN Reason: Fever >100.4 F Last Admin: 03/27/18 17:06 Dose: 650 mg Albuterol/Ipratropium (Duoneb 3 Mg/0.5 Mg (3 Ml) Ud) 3 ml IH RQ6 PRN PRN Reason: Wheezing Aspirin (Ecotrin) 81 mg PO DAILY [facility] Last Admin: 03/28/18 08:27 Dose: 81 mg Atorvastatin Calcium (Lipitor) 20 mg PO DAILY [facility] Last Admin: 03/28/18 09:36 Dose: 20 mg Clopidogrel Bisulfate (Plavix) 75 mg PO DAILY [facility] Last Admin: 03/28/18 08:26 Dose: 75 mg Digoxin (Digoxin) 0.125 mg PO QOTHERDAY [facility] Enoxaparin Sodium (Lovenox) 40 mg SC DAILY [facility]; Protocol Last Admin: 03/28/18 08:25 Dose: 40 mg Isosorbide Mononitrate (Imdur Er) 30 mg PO DAILY [facility] Last Admin: 03/28/18 08:27 Dose: 30 mg Losartan Potassium (Cozaar) 25 mg PO DAILY [facility] Last Admin: 03/28/18 08:26 Dose: 25 mg Metformin HCl (Glucophage) 500 mg PO BRK [facility] Last Admin: 03/28/18 08:26 Dose: 500 mg Metoprolol Succinate (Toprol Xl) 25 mg PO DAILY [facility] Last Admin: 03/28/18 08:27 Dose: 25 mg Pantoprazole Sodium (Protonix Ec Tab) 40 mg PO DAILY [facility] Last Admin: 03/28/18 08:27 Dose: 40 mg Sertraline HCl (Zoloft) 50 mg PO DAILY [facility] Last Admin: 03/28/18 08:27 Dose: 50 mg Tamsulosin HCl (Flomax) 0.4 mg PO DAILY [facility] Last Admin: 03/28/18 08:25 Dose: 0.4 mg Tiotropium [place] (Spiriva) 18 mcg INH DAILY [facility] Last Admin: 03/28/18 08:25 Dose: 18 mcg Tramadol HCl (Ultram) 50 mg PO Q6 PRN PRN Reason: pain Last Admin: 03/28/18 08:23 Dose: 50 mg Physical Exam - Respiratory Exam Respiratory Exam: Clear to Auscultation Bilateral - Cardiovascular Exam Cardiovascular Exam: REGULAR RHYTHM, +S1, +S2 - Extremities Exam Additional comments: NO LE EDEMA Results - Vital Signs Recent Vital Signs: Last Vital Signs Temp 99.6 F 03/28/18 07:47 Pulse 62 03/28/18 08:27 Resp 18 03/28/18 07:47 BP 101/52 L 03/28/18 08:27 Pulse Ox 98 03/28/18 07:47 - Labs Result Diagrams: 03/29/18 07:00 03/29/18 07:00 Labs: Laboratory Results - last 24 hr 03/27/18 03/27/18 03/27/18 16:08 20:47 20:47 POC Glucose (mg/dL) 128 H 167 H 167 H 03/28/18 06:51 POC Glucose (mg/dL) 140 H Assessment & Plan - Assessment and Plan (Free Text) Assessment: RECENT NSTEMI-PAIN FREE AND HEMODYNAMICALLY STABLE HYPERTENSION HYPERLIPIDEMIA COPD MS Plan: CONTINUE ASPIRIN, CLOPIDOGREL, LOVENOX, METOPROLOL, LOSARTAN, FUROSEMIDE, ATORVASTATIN, ISOSORBIDE AND DIGOXIN SUBACUTE REHAB
--- NOTE | 2018-03-28 12:27 | RAD ---
Date of service: 03/27/2018 HISTORY: fever COMPARISON: No prior. FINDINGS: LUNGS: There is no active pulmonary disease. PLEURA: There is no pleural effusion. No pneumothorax. CARDIOVASCULAR: Normal. Aortic calcification. Ectatic descending thoracic aorta. OSSEOUS STRUCTURES: No significant abnormalities. VISUALIZED UPPER ABDOMEN: Surgical clips right upper quadrant. Otherwise unremarkable. OTHER FINDINGS: None. IMPRESSION: No active disease.
--- NOTE | 2018-03-28 19:42 | CP.PCM.HP ---
History of Present Illness - History of Present Illness History of Present Illness: 72 yo male with history of COPD, DM, HTN, CAD with 3 PCI (refused cardiac cath earlier this year) presented to the ED with complaints of left arm and chest pain.He was diagnosed with NSTEMI ( elevated Troponin)and cardiology was consul norris . Patient refused cardiac cath again and medical management was recommended . PT was consulted and recommend physical therapy due to his gait imbalance . Patient is a frail , chronically ill gentleman that still actively smokes . At present he is admitted to TCU . denies any chest pain , SOB . has chronic cough with no sputum production. had fever episodes this AM Tmax 100.4 and complains of LE pain . Denies any abdominal pain , dysuria, frequency , diarrhea, chills, nausea or vomiting. Allergies ; Ampicillin, codeine PMH: Anemia, Anxiety, Arthritis, Asthma, CAD, Cardia Arrhythmia, CHF, COPD, CVA, Depression, DM II; Emphysema, Fractures (bilateral feet), HTN, HLD; , MS, Pneumonia, TIA Medications : see med rec Surgeries : Cholecystectomy, Coronary Stent (x3); Cataract surgery Social history : lives in [place] Smokes 6-7 Cigarettes daily; No illegal drug use; No Alcohol Family history ; None Code status : DNR / DNI Present on Admission - Present on Admission Any Indicators Present on Admission: No Review of Systems - Review of Systems All systems: reviewed and no additional remarkable complaints except Past Patient History - Infectious Disease Hx of Infectious Diseases: None - Tetanus Immunizations Tetanus Immunization: Unknown - Past Medical History & Family History Past Medical History?: Yes - Past Social History Smoking Status: Heavy Smoker > 10 Cigarettes Daily Chewing Tobacco Use: No Cigar Use: No Alcohol: None Home Situation {Lives}: Alone - CARDIAC Hx Cardiac Disorders: Yes Hx Angina: Yes Hx Cardia Arrhythmia: Yes Hx Heart Attack: Yes Hx Hypercholesterolemia: Yes Hx Hypertension: Yes - PULMONARY Hx Respiratory Disorders: Yes Hx Asthma: Yes Hx Chronic Obstructive Pulmonary Disease (COPD): Yes Hx Emphysema: Yes Hx Pneumonia: Yes - NEUROLOGICAL Hx Neurological Disorder: Yes - HEENT Hx HEENT Problems: No - RENAL Hx Chronic Kidney Disease: No - ENDOCRINE/METABOLIC Hx Endocrine Disorders: Yes Hx Diabetes Mellitus Type 2: Yes - HEMATOLOGICAL/ONCOLOGICAL Hx AIDS: No Hx Anemia: Yes Hx Human Immunodeficiency Virus (HIV): No - INTEGUMENTARY Hx Dermatological Problems: No - MUSCULOSKELETAL/RHEUMATOLOGICAL Hx Arthritis: Yes Hx Falls: Yes (4x1 day as per pt.) Hx Fractures: Yes (bilateral feet) - GASTROINTESTINAL Hx Gastrointestinal Disorders: No - GENITOURINARY/GYNECOLOGICAL Hx Genitourinary Disorders: Yes - PSYCHIATRIC Hx Anxiety: Yes Hx Depression: Yes Hx Substance Use: No - SURGICAL HISTORY Hx Cardiac Catheterization: Yes Hx Cholecystectomy: Yes Hx Coronary Artery Bypass Graft: No Hx Coronary Stent: Yes (x3) - ANESTHESIA Hx Anesthesia: Yes Hx Anesthesia Reactions: No Hx Malignant Hyperthermia: No Meds Allergies/Adverse Reactions: Allergies Allergy/AdvReac Type Severity Reaction Status Date / Time ampicillin Allergy RASH Verified 03/27/18 13:55 codeine AdvReac HEADACHE Verified 03/27/18 13:55 Physical Exam - Constitutional Appears: No Acute Distress, Cachectic, Chronically Ill - Head Exam Head Exam: ATRAUMATIC, NORMOCEPHALIC - Eye Exam Eye Exam: EOMI, Normal appearance, PERRL Pupil Exam: NORMAL ACCOMODATION - ENT Exam ENT Exam: Mucous Membranes Moist, Normal Exam - Neck Exam Neck exam: Positive for: Full Rom, Normal Inspection - Respiratory Exam Respiratory Exam: Prolonged Expiratory Phase, Rhonchi. absent: Rales, Wheezes, Respiratory Distress - Cardiovascular Exam Cardiovascular Exam: REGULAR RHYTHM, +S1, +S2. absent: JVD - GI/Abdominal Exam GI & Abdominal Exam: Normal Bowel Sounds, Soft. absent: Distended, Guarding, Rebound, Tenderness - Rectal Exam Rectal Exam: Deferred - Extremities Exam Extremities exam: Positive for: normal inspection, pedal pulses present. Negative for: pedal edema - Back Exam Back exam: NORMAL INSPECTION - Neurological Exam Neurological exam: Alert, CN II-XII Intact, Oriented x3, Reflexes Normal - Psychiatric Exam Psychiatric exam: Flat Affect - Skin Skin Exam: Dry, Pallor, Warm Results - Vital Signs Recent Vital Signs: Last Vital Signs Temp 97.8 F 03/28/18 17:00 Pulse 56 L 03/28/18 17:00 Resp 20 03/28/18 17:00 BP 112/50 L 03/28/18 17:00 Pulse Ox 98 03/28/18 17:00 - Labs Labs: Laboratory Results - last 24 hr 03/27/18 03/27/18 03/28/18 20:47 20:47 06:51 POC Glucose (mg/dL) 167 H 167 H 140 H 03/28/18 03/28/18 10:44 16:23 POC Glucose (mg/dL) 181 H 128 H Assessment & Plan - Assessment and Plan (Free Text) Assessment: 72 yo male with history of COPD, DM, HTN, CAD with 3 PCI (refused cardiac cath earlier this year) admitted to TCU for PT .He was diagnosed with NSTEMI but refused cardiac cath and medical management was recommended . PT was consulted and recommend physical therapy due to his gait imbalance . Patient is a frail , chronically ill gentleman that still actively smokes . ! of his blood cultures was reported as staph coag positive and patient had fever so was started empirically on IV vanco for bacteremia 1. Fever /bacteremia patient still febrile today with normal WBC count 1 blood culture is positive for stapgh coag negative Will continue Vancomycin IV empirically CXR with no infiltrate UA- clear Doppler US LE - negative for DVT Repeat CBC Follow up repeat blood cultures 2. Gait imbalance walks with a walker and has chronic pain and multiple falls at home Continue PT in TCU pain management PRN 3. CAD with new NSTEMI refusing cardiac cath continue medical management cardiology following Aspirin, Clopidogrel, Statin, Digoxin, nitrates, Losartan, BB 4.Lower extremity pain, left Hip/Pelvis XR negative for any acute changes. U/S LEs: No DVT 5. Systolic heart failure compensated Last echo in 12/2017 shows EF =20 with LVH 6. Cachexia BMI 18 7. Diabetes chronic HBA1C 7.4 on 03/2018 on Metformin 8.COPD (chronic obstructive pulmonary disease) chronic C/W Spiriva and albuterol 9.Anxiety/ depression chronic on Zoloft 10.Smoker 11. Chronic anemia stable Hgb 10 12.DVT prophylaxis Lovenox
[2018-03-29] MEDS: Enoxaparin 40 mg Syringe SC SCH (08:25)
[2018-03-29] MEDS: Digoxin 125 mcg (0.125 mg) Tab PO SCH (08:26)
[2018-03-29] MEDS: Tiotropium 18 mcg Cap For Inhalation INH SCH (08:26)
[2018-03-29] MEDS: Metoprolol Succinate 25 mg XL Tab PO SCH (08:27)
[2018-03-29 08:31] LABS: BASO % 0.5 % (0.0-2.0); EOS # 0.2 K/uL (0.0-0.7); HEMOGLOBIN 10.6 g/dL (12.0-18.0); LYMPH # 1.3 K/uL (1.0-4.3); MEAN CELL VOLUME 94.1 fl (80.0-94.0); MEAN CORPUSCULAR HEMOGLOBIN 31.4 pg (27.0-31.0); MEAN CORPUSCULAR HGB CONC 33.4 g/dL (33.0-37.0); MEAN PLATELET VOLUME 9.4 fl (7.2-11.7); MONO # 0.7 K/uL (0.0-0.8); MONO % 11.1 % (0.0-10.0); NEUT # 4.1 K/uL (1.8-7.0); NEUT % 64.4 % (50.0-75.0); NRBC % 0.1 % (0.0-0.0); RBC 3.39 Mil/uL (4.40-5.90); RED CELL DISTRIBUTION WIDTH 13.9 % (11.5-14.5); WHITE BLOOD COUNT 6.3 K/uL (4.8-10.8)
[2018-03-29] MEDS: Pantoprazole 40 mg EC Tab PO SCH (08:33)
[2018-03-29 08:53] LABS: BLOOD UREA NITROGEN 19 mg/dl (9-20); CALCIUM 8.4 mg/dL (8.4-10.2); GFR NON-AFRICAN AMERICAN > 60
[2018-03-29] MEDS: levoFLOXacin 500 MG TAB PO SCH (11:40)
[2018-03-30] MEDS: Enoxaparin 40 mg Syringe SC SCH (08:16)
[2018-03-30] MEDS: Tiotropium 18 mcg Cap For Inhalation INH SCH (08:18)
[2018-03-30] MEDS: Metoprolol Succinate 25 mg XL Tab PO SCH (08:18)
[2018-03-30] MEDS: levoFLOXacin 500 MG TAB PO SCH (08:19)
[2018-03-30] MEDS: Pantoprazole 40 mg EC Tab PO SCH (08:56)
--- NOTE | 2018-03-30 13:47 | CP.PCM.PN ---
Subjective - Date & Time of Evaluation Date of Evaluation: 03/30/18 Time of Evaluation: 12:00 - Subjective Subjective: NO NEW COMPLAINTS Objective - Vital Signs/Intake and Output Vital Signs (last 24 hours): Temp Pulse Resp BP Pulse Ox 97.9 F 62 18 104/57 L 97 03/30/18 08:25 03/30/18 08:25 03/30/18 08:25 03/30/18 08:25 03/29/18 19:26 - Medications Medications: Current Medications Acetaminophen (Tylenol 325mg Tab) 650 mg PO Q4 PRN PRN Reason: Fever >100.4 F Last Admin: 03/27/18 17:06 Dose: 650 mg Albuterol/Ipratropium (Duoneb 3 Mg/0.5 Mg (3 Ml) Ud) 3 ml IH RQ6 PRN PRN Reason: Wheezing Aspirin (Ecotrin) 81 mg PO DAILY [facility] Last Admin: 03/30/18 08:18 Dose: 81 mg Atorvastatin Calcium (Lipitor) 20 mg PO DAILY [facility] Last Admin: 03/30/18 08:56 Dose: 20 mg Clopidogrel Bisulfate (Plavix) 75 mg PO DAILY [facility] Last Admin: 03/30/18 08:18 Dose: 75 mg Digoxin (Digoxin) 0.125 mg PO QOTHERDAY [facility] Last Admin: 03/29/18 08:26 Dose: 0.125 mg Enoxaparin Sodium (Lovenox) 40 mg SC DAILY [facility]; Protocol Last Admin: 03/30/18 08:16 Dose: 40 mg Isosorbide Mononitrate (Imdur Er) 30 mg PO DAILY [facility] Last Admin: 03/30/18 08:20 Dose: 30 mg Levofloxacin (Levaquin) 500 mg PO DAILY [facility]; Protocol Last Admin: 03/30/18 08:19 Dose: 500 mg Losartan Potassium (Cozaar) 25 mg PO DAILY [facility] Last Admin: 03/30/18 08:18 Dose: 25 mg Metformin HCl (Glucophage) 500 mg PO BRK [facility] Last Admin: 03/30/18 08:18 Dose: 500 mg Metoprolol Succinate (Toprol Xl) 25 mg PO DAILY [facility] Last Admin: 03/30/18 08:18 Dose: 25 mg Pantoprazole Sodium (Protonix Ec Tab) 40 mg PO DAILY [facility] Last Admin: 03/30/18 08:56 Dose: 40 mg Sertraline HCl (Zoloft) 50 mg PO DAILY [facility] Last Admin: 03/30/18 08:56 Dose: 50 mg Tamsulosin HCl (Flomax) 0.4 mg PO DAILY [facility] Last Admin: 03/30/18 08:18 Dose: 0.4 mg Tiotropium [place] (Spiriva) 18 mcg INH DAILY [facility] Last Admin: 03/30/18 08:18 Dose: 18 mcg Tramadol HCl (Ultram) 50 mg PO Q6 PRN PRN Reason: Pain, severe (8-10) - Labs Labs: 03/29/18 07:00 03/29/18 07:00 - Respiratory Exam Respiratory Exam: Clear to Ausculation Bilateral - Cardiovascular Exam Cardiovascular Exam: REGULAR RHYTHM, +S1, +S2 - Extremities Exam Additional comments: NO LE EDEMA Assessment and Plan - Assessment and Plan (Free Text) Assessment: CAD WITH OLD IWMI AND THREE NSTEMIS WITH LOW LVEF HYPERTENSION MS OLD TIA/CVA DECONDITIONING Plan: CONTINUE METOPROLOL, LOSARTAN, ASPIRIN, CLOPIDOGREL, LOVENOX, DIGOXIN, NITRATES AND ATORVASTATIN CONTINUE JUS
[2018-03-31] MEDS: Tiotropium 18 mcg Cap For Inhalation INH SCH (08:05)
[2018-03-31] MEDS: Enoxaparin 40 mg Syringe SC SCH (08:06)
[2018-03-31] MEDS: Digoxin 125 mcg (0.125 mg) Tab PO SCH (08:07)
[2018-03-31] MEDS: Pantoprazole 40 mg EC Tab PO SCH (08:08)
[2018-03-31] MEDS: Metoprolol Succinate 25 mg XL Tab PO SCH (08:08)
[2018-03-31] MEDS: levoFLOXacin 500 MG TAB PO SCH (08:09)
[2018-04-01] MEDS: Enoxaparin 40 mg Syringe SC SCH (08:33)
[2018-04-01] MEDS: Tiotropium 18 mcg Cap For Inhalation INH SCH (08:35)
[2018-04-01] MEDS: Metoprolol Succinate 25 mg XL Tab PO SCH (08:38)
[2018-04-01] MEDS: Pantoprazole 40 mg EC Tab PO SCH (08:41)
[2018-04-01] MEDS: levoFLOXacin 500 MG TAB PO SCH (08:42)
--- NOTE | 2018-04-01 11:20 | CP.PCM.PN ---
Subjective - Date & Time of Evaluation Date of Evaluation: 04/01/18 Time of Evaluation: 11:10 - Subjective Subjective: NO NEW COMPLAINTS NO CHEST PAIN OR SOB Objective - Vital Signs/Intake and Output Vital Signs (last 24 hours): Temp Pulse Resp BP Pulse Ox 97.9 F 110 H 22 153/52 H 97 04/01/18 09:00 04/01/18 09:00 04/01/18 09:00 04/01/18 09:00 04/01/18 09:00 - Medications Medications: Current Medications Acetaminophen (Tylenol 325mg Tab) 650 mg PO Q4 PRN PRN Reason: Fever >100.4 F Last Admin: 03/27/18 17:06 Dose: 650 mg Albuterol/Ipratropium (Duoneb 3 Mg/0.5 Mg (3 Ml) Ud) 3 ml IH RQ6 PRN PRN Reason: Wheezing Aspirin (Ecotrin) 81 mg PO DAILY [facility] Last Admin: 04/01/18 08:37 Dose: 81 mg Atorvastatin Calcium (Lipitor) 20 mg PO DAILY [facility] Last Admin: 04/01/18 08:42 Dose: 20 mg Clopidogrel Bisulfate (Plavix) 75 mg PO DAILY [facility] Last Admin: 04/01/18 08:38 Dose: 75 mg Digoxin (Digoxin) 0.125 mg PO QOTHERDAY [facility] Last Admin: 03/31/18 08:07 Dose: 0.125 mg Enoxaparin Sodium (Lovenox) 40 mg SC DAILY [facility]; Protocol Last Admin: 04/01/18 08:33 Dose: 40 mg Isosorbide Mononitrate (Imdur Er) 30 mg PO DAILY [facility] Last Admin: 04/01/18 08:37 Dose: 30 mg Levofloxacin (Levaquin) 500 mg PO DAILY [facility]; Protocol Last Admin: 04/01/18 08:42 Dose: 500 mg Losartan Potassium (Cozaar) 25 mg PO DAILY [facility] Last Admin: 04/01/18 08:37 Dose: 25 mg Metformin HCl (Glucophage) 500 mg PO BRK [facility] Last Admin: 04/01/18 08:37 Dose: 500 mg Metoprolol Succinate (Toprol Xl) 25 mg PO DAILY [facility] Last Admin: 04/01/18 08:38 Dose: 25 mg Pantoprazole Sodium (Protonix Ec Tab) 40 mg PO DAILY [facility] Last Admin: 10/09/18 08:41 Dose: 40 mg Sertraline HCl (Zoloft) 50 mg PO DAILY [facility] Last Admin: 04/01/18 08:37 Dose: 50 mg Tamsulosin HCl (Flomax) 0.4 mg PO DAILY [facility] Last Admin: 04/01/18 08:37 Dose: 0.4 mg Tiotropium [place] (Spiriva) 18 mcg INH DAILY [facility] Last Admin: 04/01/18 08:35 Dose: 18 mcg Tramadol HCl (Ultram) 50 mg PO Q6 PRN PRN Reason: Pain, severe (8-10) Last Admin: 04/01/18 08:41 Dose: 50 mg - Labs Labs: 03/29/18 07:00 03/29/18 07:00 - Respiratory Exam Respiratory Exam: Clear to Ausculation Bilateral - Cardiovascular Exam Cardiovascular Exam: REGULAR RHYTHM, +S1, +S2 - Extremities Exam Additional comments: NO LE EDEMA Assessment and Plan - Assessment and Plan (Free Text) Assessment: DECONDITIONING CAD HYPERTENSION MS Plan: CONTINUE LOSARTAN, METOPROLOL, ASPIRIN, CLOPIDOGREL, LOVENOX, DIGOXIN, NITRATES CONTINUE SUBACUTE REHAB
--- NOTE | 2018-04-01 17:44 | CP.PCM.PN ---
Subjective - Date & Time of Evaluation Date of Evaluation: 04/01/18 Time of Evaluation: 17:00 - Subjective Subjective: Patient seen and examined. Denied chest pain or any other complaint. Objective - Vital Signs/Intake and Output Vital Signs (last 24 hours): Temp Pulse Resp BP Pulse Ox 98.1 F 110 H 22 153/52 H 88 L 04/01/18 15:37 04/01/18 14:45 04/01/18 09:00 04/01/18 14:45 04/01/18 14:45 - Medications Medications: Current Medications Acetaminophen (Tylenol 325mg Tab) 650 mg PO Q4 PRN PRN Reason: Fever >100.4 F Last Admin: 03/27/18 17:06 Dose: 650 mg Albuterol/Ipratropium (Duoneb 3 Mg/0.5 Mg (3 Ml) Ud) 3 ml IH RQ6 PRN PRN Reason: Wheezing Aspirin (Ecotrin) 81 mg PO DAILY [facility] Last Admin: 04/01/18 08:37 Dose: 81 mg Atorvastatin Calcium (Lipitor) 20 mg PO DAILY [facility] Last Admin: 04/01/18 08:42 Dose: 20 mg Clopidogrel Bisulfate (Plavix) 75 mg PO DAILY [facility] Last Admin: 04/01/18 08:38 Dose: 75 mg Digoxin (Digoxin) 0.125 mg PO QOTHERDAY [facility] Last Admin: 03/31/18 08:07 Dose: 0.125 mg Enoxaparin Sodium (Lovenox) 40 mg SC DAILY [facility]; Protocol Last Admin: 04/01/18 08:33 Dose: 40 mg Isosorbide Mononitrate (Imdur Er) 30 mg PO DAILY [facility] Last Admin: 04/01/18 08:37 Dose: 30 mg Levofloxacin (Levaquin) 500 mg PO DAILY [facility]; Protocol Last Admin: 04/01/18 08:42 Dose: 500 mg Losartan Potassium (Cozaar) 25 mg PO DAILY [facility] Last Admin: 04/01/18 08:37 Dose: 25 mg Metformin HCl (Glucophage) 500 mg PO BRK [facility] Last Admin: 04/01/18 08:37 Dose: 500 mg Metoprolol Succinate (Toprol Xl) 25 mg PO DAILY [facility] Last Admin: 04/01/18 08:38 Dose: 25 mg Pantoprazole Sodium (Protonix Ec Tab) 40 mg PO DAILY [facility] Last Admin: 04/01/18 08:41 Dose: 40 mg Sertraline HCl (Zoloft) 50 mg PO DAILY [facility] Last Admin: 04/01/18 08:37 Dose: 50 mg Tamsulosin HCl (Flomax) 0.4 mg PO DAILY [facility] Last Admin: 04/01/18 08:37 Dose: 0.4 mg Tiotropium [place] (Spiriva) 18 mcg INH DAILY [facility] Last Admin: 04/01/18 08:35 Dose: 18 mcg Tramadol HCl (Ultram) 50 mg PO Q6 PRN PRN Reason: Pain, severe (8-10) Last Admin: 04/01/18 15:36 Dose: 50 mg - Labs Labs: 03/29/18 07:00 03/29/18 07:00 - Constitutional Appears: No Acute Distress - Head Exam Head Exam: ATRAUMATIC - Eye Exam Eye Exam: absent: Scleral icterus - ENT Exam ENT Exam: Mucous Membranes Moist - Neck Exam Neck Exam: absent: Meningismus - Respiratory Exam Respiratory Exam: absent: Rales, Rhonchi, Wheezes, Respiratory Distress - Cardiovascular Exam Cardiovascular Exam: REGULAR RHYTHM, +S1, +S2 - GI/Abdominal Exam GI & Abdominal Exam: Soft. absent: Tenderness - Rectal Exam Rectal Exam: Deferred - Extremities Exam Extremities Exam: absent: Pedal Edema - Neurological Exam Neurological Exam: Alert, Normal Gait - Psychiatric Exam Psychiatric exam: Normal Affect - Skin Skin Exam: Dry, Intact Assessment and Plan - Assessment and Plan (Free Text) Assessment: 72 yo male with history of COPD, DM, HTN and CAD came in with left arm pain radiating to left upper back. Work ups showed NSTEMI. Patient again refused cardiac catheterization as he did in the past. Patient was transfered to TCU for physical therapy because of gait imbalance when he was hemodynamically stable. 1. NSTEMI (non-ST elevated myocardial infarction) refused cardiac cath and further management continue ASA, Plavix, Atorvastatin, Metoprolol and Losartan 2. Bacteremia 1 set blood culture was positive for staph aureus sensitive to Levofloxacin probably a contaminant since repeat blood culture were negative continue PO Levaquin for 10 days 3. DM2 HhA1C: 7.4 continue Metformin 500mg PO q 12hrs 4. COPD stable continue Duoneb and Spiriva 5. Physical deconditioning continue PT
[2018-04-01 20:44] VITALS: RESP 20
[2018-04-02] MEDS: levoFLOXacin 500 MG TAB PO SCH (08:58)
[2018-04-02] MEDS: Tiotropium 18 mcg Cap For Inhalation INH SCH (08:58)
[2018-04-02] MEDS: Digoxin 125 mcg (0.125 mg) Tab PO SCH (09:00)
[2018-04-02] MEDS: Enoxaparin 40 mg Syringe SC SCH (09:02)
[2018-04-02] MEDS: Pantoprazole 40 mg EC Tab PO SCH (09:05)
[2018-04-02] MEDS: Metoprolol Succinate 25 mg XL Tab PO SCH (15:51)
[2018-04-03] MEDS: Pantoprazole 40 mg EC Tab PO SCH (09:11)
[2018-04-03] MEDS: Metoprolol Succinate 25 mg XL Tab PO SCH (09:12)
[2018-04-03] MEDS: Tiotropium 18 mcg Cap For Inhalation INH SCH (09:13)
[2018-04-03] MEDS: levoFLOXacin 500 MG TAB PO SCH (09:15)
[2018-04-03] MEDS: Enoxaparin 40 mg Syringe SC SCH (09:15)
--- NOTE | 2018-04-03 10:07 | CP.PCM.PN ---
Subjective - Date & Time of Evaluation Date of Evaluation: 04/03/18 Time of Evaluation: 09:00 - Subjective Subjective: NO CHEST PAIN OR SOB DOING WELL IN REHAB Objective - Vital Signs/Intake and Output Vital Signs (last 24 hours): Temp Pulse Resp BP Pulse Ox 98.2 F 68 20 128/58 L 98 04/03/18 08:42 04/03/18 09:13 04/03/18 08:42 04/03/18 09:13 04/03/18 08:42 - Medications Medications: Current Medications Acetaminophen (Tylenol 325mg Tab) 650 mg PO Q4 PRN PRN Reason: Fever >100.4 F Last Admin: 03/27/18 17:06 Dose: 650 mg Albuterol/Ipratropium (Duoneb 3 Mg/0.5 Mg (3 Ml) Ud) 3 ml IH RQ6 PRN PRN Reason: Wheezing Aspirin (Ecotrin) 81 mg PO DAILY [facility] Last Admin: 04/03/18 09:15 Dose: 81 mg Atorvastatin Calcium (Lipitor) 20 mg PO DAILY [facility] Last Admin: 04/03/18 09:15 Dose: 20 mg Clopidogrel Bisulfate (Plavix) 75 mg PO DAILY [facility] Last Admin: 04/03/18 09:13 Dose: 75 mg Digoxin (Digoxin) 0.125 mg PO QOTHERDAY [facility] Last Admin: 04/02/18 09:00 Dose: 0.125 mg Enoxaparin Sodium (Lovenox) 40 mg SC DAILY [facility]; Protocol Last Admin: 04/03/18 09:15 Dose: 40 mg Isosorbide Mononitrate (Imdur Er) 30 mg PO DAILY [facility] Last Admin: 04/03/18 09:14 Dose: 30 mg Levofloxacin (Levaquin) 500 mg PO DAILY [facility]; Protocol Last Admin: 04/03/18 09:15 Dose: 500 mg Losartan Potassium (Cozaar) 25 mg PO DAILY [facility] Last Admin: 04/03/18 09:13 Dose: 25 mg Metformin HCl (Glucophage) 500 mg PO BRK [facility] Last Admin: 04/03/18 09:12 Dose: 500 mg Metoprolol Succinate (Toprol Xl) 25 mg PO DAILY [facility] Last Admin: 04/03/18 09:12 Dose: 25 mg Pantoprazole Sodium (Protonix Ec Tab) 40 mg PO DAILY [facility] Last Admin: 04/03/18 09:11 Dose: 40 mg Sertraline HCl (Zoloft) 50 mg PO DAILY [facility] Last Admin: 04/03/18 09:16 Dose: 50 mg Tamsulosin HCl (Flomax) 0.4 mg PO DAILY [facility] Last Admin: 04/03/18 09:11 Dose: 0.4 mg Tiotropium [place] (Spiriva) 18 mcg INH DAILY [facility] Last Admin: 04/03/18 09:13 Dose: 18 mcg Tramadol HCl (Ultram) 50 mg PO Q6 PRN PRN Reason: Pain, severe (8-10) Last Admin: 04/03/18 06:49 Dose: 50 mg - Labs Labs: 03/29/18 07:00 03/29/18 07:00 - Respiratory Exam Respiratory Exam: Clear to Ausculation Bilateral - Cardiovascular Exam Cardiovascular Exam: REGULAR RHYTHM, +S1, +S2 - Extremities Exam Additional comments: NO LE EDEMA Assessment and Plan - Assessment and Plan (Free Text) Assessment: DECONDITIONING CAD WITH MULTIPLE PA'S HYPERTENSION MS OLD CVA/INFARCT Plan: CONTINUE LOSARTAN, METOPROLOL, DIGOXIN, ASPIRIN, CLOPIDOGREL, ISOSORBIDE MONONITRATE, ATORVASTATIN AND LOVENOX CONTINUE JUS
--- NOTE | 2018-04-03 12:46 | CP.PCM.PN ---
Subjective - Date & Time of Evaluation Date of Evaluation: 04/03/18 Time of Evaluation: 16:30 - Subjective Subjective: Patient seen bedside . Feeling well. Hemodynamically stable, afebrile. No acute issues overnight . Denies any chest pain or SOB .participating with PT For discharge in AM Objective - Vital Signs/Intake and Output Vital Signs (last 24 hours): Temp Pulse Resp BP Pulse Ox 98.2 F 68 20 128/58 L 98 04/03/18 08:42 04/03/18 09:13 04/03/18 08:42 04/03/18 09:13 04/03/18 08:42 - Medications Medications: Current Medications Acetaminophen (Tylenol 325mg Tab) 650 mg PO Q4 PRN PRN Reason: Fever >100.4 F Last Admin: 03/27/18 17:06 Dose: 650 mg Albuterol/Ipratropium (Duoneb 3 Mg/0.5 Mg (3 Ml) Ud) 3 ml IH RQ6 PRN PRN Reason: Wheezing Aspirin (Ecotrin) 81 mg PO DAILY [facility] Last Admin: 04/03/18 09:15 Dose: 81 mg Atorvastatin Calcium (Lipitor) 20 mg PO DAILY [facility] Last Admin: 04/03/18 09:15 Dose: 20 mg Clopidogrel Bisulfate (Plavix) 75 mg PO DAILY [facility] Last Admin: 04/03/18 09:13 Dose: 75 mg Digoxin (Digoxin) 0.125 mg PO QOTHERDAY [facility] Last Admin: 04/02/18 09:00 Dose: 0.125 mg Enoxaparin Sodium (Lovenox) 40 mg SC DAILY [facility]; Protocol Last Admin: 04/03/18 09:15 Dose: 40 mg Isosorbide Mononitrate (Imdur Er) 30 mg PO DAILY [facility] Last Admin: 04/03/18 09:14 Dose: 30 mg Lactulose (Enulose) 20 gm PO DAILY PRN PRN Reason: Constipation Levofloxacin (Levaquin) 500 mg PO DAILY [facility]; Protocol Last Admin: 04/03/18 09:15 Dose: 500 mg Losartan Potassium (Cozaar) 25 mg PO DAILY [facility] Last Admin: 04/03/18 09:13 Dose: 25 mg Metformin HCl (Glucophage) 500 mg PO BRK [facility] Last Admin: 04/03/18 09:12 Dose: 500 mg Metoprolol Succinate (Toprol Xl) 25 mg PO DAILY [facility] Last Admin: 04/03/18 09:12 Dose: 25 mg Pantoprazole Sodium (Protonix Ec Tab) 40 mg PO DAILY [facility] Last Admin: 04/03/18 09:11 Dose: 40 mg Sertraline HCl (Zoloft) 50 mg PO DAILY [facility] Last Admin: 04/03/18 09:16 Dose: 50 mg Tamsulosin HCl (Flomax) 0.4 mg PO DAILY [facility] Last Admin: 04/03/18 09:11 Dose: 0.4 mg Tiotropium [place] (Spiriva) 18 mcg INH DAILY [facility] Last Admin: 04/03/18 09:13 Dose: 18 mcg Tramadol HCl (Ultram) 50 mg PO Q6 PRN PRN Reason: Pain, severe (8-10) Last Admin: 04/03/18 06:49 Dose: 50 mg - Labs Labs: 03/29/18 07:00 03/29/18 07:00 - Constitutional Appears: Non-toxic, No Acute Distress, Cachectic, Chronically Ill - Head Exam Head Exam: ATRAUMATIC, NORMOCEPHALIC - Eye Exam Eye Exam: EOMI, PERRL Pupil Exam: NORMAL ACCOMODATION - ENT Exam ENT Exam: Mucous Membranes Moist, Normal Exam - Respiratory Exam Respiratory Exam: Clear to Ausculation Bilateral. absent: Wheezes, Respiratory Distress - Cardiovascular Exam Cardiovascular Exam: REGULAR RHYTHM, RRR, +S1, +S2. absent: JVD - GI/Abdominal Exam GI & Abdominal Exam: Soft, Normal Bowel Sounds. absent: Distended, Guarding, Tenderness, Rebound - Rectal Exam Rectal Exam: Deferred - Extremities Exam Extremities Exam: Normal Capillary Refill, Normal Inspection. absent: Pedal Edema - Back Exam Back Exam: NORMAL INSPECTION - Neurological Exam Neurological Exam: Alert, Awake, CN II-XII Intact, Oriented x3 - Psychiatric Exam Psychiatric exam: Flat Affect - Skin Skin Exam: Dry, Pallor, Warm Assessment and Plan - Assessment and Plan (Free Text) Assessment: 72 yo male with history of COPD, DM, HTN and CAD came in with left arm pain radiating to left upper back. Work up showed NSTEMI. Patient again refused cardiac catheterization as he did in the past so medical mangement was optimized.Patient was transfered to TCU for physical therapy because of gait imbalance. At present doing well, participating with PT 1. Physical deconditioning / gait instability transferredto TCU for PT and doing well 2. NSTEMI (non-ST elevated myocardial infarction) refused cardiac cath and further management continue medical management : ASA, Plavix, Atorvastatin, Metoprolol and Losartan 3. Bacteremia 1 set blood culture was positive for staph aureus sensitive to Levofloxacin probably a contaminant since repeat blood culture were negative received levaquine At present afebrile with normal WBC 6 K Blood cultures with no growth 4. DM2 HgA1C: 7.4 continue Metformin 500mg PO q 12hrs 5. COPD stable continue Duoneb and Spiriva 6. Cachetic BMI 18 7. Anemia of chronic disease stable 8.DVT prophylaxis lovenox
[2018-04-04] MEDS: Enoxaparin 40 mg Syringe SC SCH (08:50)
[2018-04-04] MEDS: Tiotropium 18 mcg Cap For Inhalation INH SCH (08:51)
[2018-04-04] MEDS: Pantoprazole 40 mg EC Tab PO SCH (08:52)
[2018-04-04] MEDS: Metoprolol Succinate 25 mg XL Tab PO SCH (08:52)
[2018-04-04] MEDS: Digoxin 125 mcg (0.125 mg) Tab PO SCH (08:54)
[2018-04-04 08:55] VITALS: BP 146/69; PULSE 69
[2018-04-04 09:27] VITALS: TEMP 97.9; O2SAT 97
--- NOTE | 2018-04-04 13:59 | CP.PCM.DIS ---
Provider - Provider Date of Admission: 03/27/18 13:59 Attending physician: Miguel Childers MD Primary care physician: Maximo House MD Consults: Dr House Time Spent in preparation of Discharge (in minutes): 25 Diagnosis - Discharge Diagnosis (1) Gait instability Status: Acute Comment: did well with therapy (2) NSTEMI (non-ST elevated myocardial infarction) Status: Acute Comment: cardiac catheterization offered but refused. stable, asymptomatic at present (3) DM2 (diabetes mellitus, type 2) Status: Chronic Priority: High Comment: BS controlled. continue Metformin 500mg PO at breakfast (4) COPD (chronic obstructive pulmonary disease) Status: Acute Comment: stable. continue Duoneb and Spiriva Hospital Course - Lab Results Lab Results: Micro Results 03/27/18 16:36 Blood-Venous Blood Culture - Final NO GROWTH AFTER 5 DAYS 03/27/18 16:36 Blood-Venous Gram Stain - Final TEST NOT PERFORMED 03/27/18 16:36 Blood-Venous Blood Culture - Final NO GROWTH AFTER 5 DAYS 03/27/18 16:36 Blood-Venous Gram Stain - Final TEST NOT PERFORMED Most Recent Lab Values WBC 6.3 K/uL (4.8-10.8) 03/29/18 07:00 RBC 3.39 Mil/uL (4.40-5.90) L 03/29/18 07:00 Hgb 10.6 g/dL (12.0-18.0) L 03/29/18 07:00 Hct 31.9 % (35.0-51.0) L 03/29/18 07:00 MCV 94.1 fl (80.0-94.0) H 03/29/18 07:00 MCH 31.4 pg (27.0-31.0) H 03/29/18 07:00 MCHC 33.4 g/dL (33.0-37.0) 03/29/18 07:00 RDW 13.9 % (11.5-14.5) 03/29/18 07:00 Plt Count 133 K/uL (130-400) 03/29/18 07:00 MPV 9.4 fl (7.2-11.7) 03/29/18 07:00 Neut % (Auto) 64.4 % (50.0-75.0) 03/29/18 07:00 Lymph % (Auto) 21.0 % (20.0-40.0) 03/29/18 07:00 [place] % (Auto) 11.1 % (0.0-10.0) H 03/29/18 07:00 Eos % (Auto) 3.0 % (0.0-4.0) 03/29/18 07:00 Baso % (Auto) 0.5 % (0.0-2.0) 03/29/18 07:00 Neut # (Auto) 4.1 K/uL (1.8-7.0) 03/29/18 07:00 Lymph # (Auto) 1.3 K/uL (1.0-4.3) 03/29/18 07:00 [place] # (Auto) 0.7 K/uL (0.0-0.8) 03/29/18 07:00 Eos # (Auto) 0.2 K/uL (0.0-0.7) 03/29/18 07:00 Baso # (Auto) 0.0 K/uL (0.0-0.2) 03/29/18 07:00 Sodium 135 mmol/l (132-148) 03/29/18 07:00 Potassium 4.7 MMOL/L (3.6-5.0) 03/29/18 07:00 Chloride 102 mmol/L (98-107) 03/29/18 07:00 Carbon Dioxide 27 mmol/L (22-30) 03/29/18 07:00 Anion Gap 11 (10-20) 03/29/18 07:00 BUN 19 mg/dl (9-20) 03/29/18 07:00 Creatinine 1.0 mg/dl (0.8-1.5) 03/29/18 07:00 Est GFR ( Amer) > 60 03/29/18 07:00 Est GFR (Non-Af Amer) > 60 03/29/18 07:00 POC Glucose (mg/dL) 141 mg/dL (65-110) H 04/03/18 21:15 Random Glucose 110 mg/dL (75-110) 03/29/18 07:00 Calcium 8.4 mg/dL (8.4-10.2) 03/29/18 07:00 Influenza Typ A,B (EIA) Negative for flu a/b (NEGATIVE) 03/29/18 14:15 - Hospital Course Hospital Course: 72 yo male with history of COPD, DM, HTN and CAD came in with left arm pain radiating to left upper back. Work ups showed NSTEMI. Patient again refused cardiac catheterization as he did in the past. Patient was transfered to TCU for physical therapy because of gait imbalance and further management. He did well and now was ready for discharge. Discharge Exam - Head Exam Head Exam: ATRAUMATIC, NORMOCEPHALIC - Eye Exam Eye Exam: absent: Scleral icterus - ENT Exam ENT Exam: Mucous Membranes Moist - Respiratory Exam Respiratory Exam: absent: Rales, Rhonchi, Wheezes, Respiratory Distress - Cardiovascular Exam Cardiovascular Exam: REGULAR RHYTHM, +S1, +S2 - GI/Abdominal Exam GI & Abdominal Exam: Soft. absent: Tenderness - Rectal Exam Rectal Exam: Deferred - Neurological Exam Neurological exam: Alert, Oriented x3 - Psychiatric Exam Psychiatric exam: Normal Affect - Skin Skin Exam: Dry, Intact Discharge Plan - Discharge Medications Prescriptions: traMADol [Ultram] 50 mg PO Q6 PRN #20 tab PRN Reason: pain - Follow Up Plan Condition: GOOD Disposition: HOME/ ROUTINE Instructions: Exacerbation of COPD (DC) Referrals: Maximo House MD [Primary Care Provider] -
== END 2018-04-04 11:00 | disposition home health service (06) | DRG 281 ==
LOC: H.TCU 13:59
PROC: F07M6FZ Therapeutic Exercise Treatment of Musculoskeletal System - Whole Body using Assistive, Adaptive, Supportive or Protective Equipment (ICD-10-PCS; principal; 2018-03-27)
PROC: F07Z9FZ Gait Training/Functional Ambulation Treatment using Assistive, Adaptive, Supportive or Protective Equipment (ICD-10-PCS; 2018-03-27)
DX: I21.4 Non-ST elevation (NSTEMI) myocardial infarction (principal); I50.22 Chronic systolic (congestive) heart failure; R64 Cachexia; R78.81 Bacteremia; Z68.1 Body mass index [BMI] 19.9 or less, adult; D63.8 Anemia in other chronic diseases classified elsewhere; E11.9 Type 2 diabetes mellitus without complications; E78.00 Pure hypercholesterolemia, unspecified; E78.5 Hyperlipidemia, unspecified; F32.9 Major depressive disorder, single episode, unspecified; F41.9 Anxiety disorder, unspecified; G89.29 Other chronic pain; I11.0 Hypertensive heart disease with heart failure; I25.10 Atherosclerotic heart disease of native coronary artery without angina pectoris; I25.2 Old myocardial infarction; J43.9 Emphysema, unspecified; R29.6 Repeated falls; Z66 Do not resuscitate; Z79.84 Long term (current) use of oral hypoglycemic drugs; Z86.73 Personal history of transient ischemic attack (TIA), and cerebral infarction without residual deficits; Z87.01 Personal history of pneumonia (recurrent); Z88.0 Allergy status to penicillin; Z90.49 Acquired absence of other specified parts of digestive tract; Z95.5 Presence of coronary angioplasty implant and graft; M19.90 Unspecified osteoarthritis, unspecified site; R26.89 Other abnormalities of gait and mobility; R54 Age-related physical debility; F17.210 Nicotine dependence, cigarettes, uncomplicated

== ENCOUNTER 2018-04-24 12:25 | Inpatient (IN) | payer OTHER ==
[2018-04-24 14:54] VITALS: BMI 17.9
[2018-04-24] MEDS ORDERED: Albuterol-Ipratrop 3 mg / 0.5 (3 ml) UD IH PRN (16:46)
[2018-04-24] MEDS ORDERED: NITROGLYCERIN 0.4 MG SL PRN (16:46)
--- NOTE | 2018-04-24 20:18 | CP.PCM.CON ---
History of Present Illness - History of Present Illness History of Present Illness: Consultation for NSTEMI 72 year old male with multiple cardiac risk factors admitted with NSTEMI who refused to have cath in the past agreed to undergo invasive evaluation on Saturday at [facility]. Review of Systems - Review of Systems Systems not reviewed;Unavailable: Acuity of Condition - Constitutional Constitutional: As Per HPI - EENT Eyes: As Per HPI Ears: As Per HPI Nose/Mouth/Throat: As Per HPI - Cardiovascular Cardiovascular: As Per HPI - Respiratory Respiratory: As Per HPI - Gastrointestinal Gastrointestinal: As Per HPI - Genitourinary Genitourinary: As Per HPI - Reproductive: Male Reproductive:Male: As Per HPI - Musculoskeletal Musculoskeletal: As Per HPI - Integumentary Integumentary: As Per HPI - Neurological Neurological: As Per HPI - Psychiatric Psychiatric: As Per HPI - Endocrine Endocrine: As Per HPI - Hematologic/Lymphatic Hematologic: As Per HPI Past Patient History - Infectious Disease Hx of Infectious Diseases: None - Tetanus Immunizations Tetanus Immunization: Unknown - Past Medical History & Family History Past Medical History?: Yes - Past Social History Smoking Status: Light Smoker < 10 Cigarettes Daily - CARDIAC Hx Cardiac Disorders: Yes Hx Cardia Arrhythmia: Yes Hx Congestive Heart Failure: Yes Hx Heart Attack: Yes Hx Hypercholesterolemia: Yes Hx Hypertension: Yes - PULMONARY Hx Respiratory Disorders: Yes Hx Asthma: Yes Hx Bronchitis: No Hx Chronic Obstructive Pulmonary Disease (COPD): Yes Hx Emphysema: Yes Hx Pneumonia: Yes - NEUROLOGICAL Hx Neurological Disorder: Yes Hx Multiple Sclerosis: Yes Hx Transient Ischemic Attacks (TIA): Yes - HEENT Hx HEENT Problems: No Hx Cataracts: Yes - RENAL Hx Chronic Kidney Disease: No - ENDOCRINE/METABOLIC Hx Endocrine Disorders: Yes Hx Diabetes Mellitus Type 2: Yes - HEMATOLOGICAL/ONCOLOGICAL Hx AIDS: No Hx Human Immunodeficiency Virus (HIV): No - INTEGUMENTARY Hx Dermatological Problems: No - MUSCULOSKELETAL/RHEUMATOLOGICAL Hx Arthritis: Yes Hx Falls: No - GASTROINTESTINAL Hx Gastrointestinal Disorders: No - GENITOURINARY/GYNECOLOGICAL Hx Genitourinary Disorders: Yes - PSYCHIATRIC Hx Anxiety: Yes Hx Depression: Yes Hx Substance Use: No - SURGICAL HISTORY Hx Surgeries: Yes Hx Cholecystectomy: Yes Hx Coronary Artery Bypass Graft: No Hx Coronary Stent: Yes (x3) Other/Comment: cataract surgery - ANESTHESIA Hx Anesthesia: Yes Hx Anesthesia Reactions: No Hx Malignant Hyperthermia: No Meds Allergies/Adverse Reactions: Allergies Allergy/AdvReac Type Severity Reaction Status Date / Time codeine Allergy Intermediate HEADACHE Verified 04/24/18 14:54 ampicillin Allergy RASH Verified 04/20/18 14:24 - Medications Medications: Current Medications Acetaminophen (Tylenol 325mg Tab) 325 mg PO Q6 PRN PRN Reason: for pain level 1-3, temp 100.4 Albuterol/Ipratropium (Duoneb 3 Mg/0.5 Mg (3 Ml) Ud) 3 ml IH Q6 PRN PRN Reason: Wheezing Aspirin (Ecotrin) 81 mg PO DAILY [facility] Atorvastatin Calcium (Lipitor) 20 mg PO DAILY [facility] Clopidogrel Bisulfate (Plavix) 75 mg PO DAILY [facility] Digoxin (Digoxin) 0.125 mg PO QOTHERDAY [facility] Docusate Sodium (Colace) 100 mg PO DAILY [facility] Enoxaparin Sodium (Lovenox) 40 mg SC DAILY [facility]; Protocol Isosorbide Mononitrate (Imdur Er) 30 mg PO DAILY [facility] Losartan Potassium (Cozaar) 25 mg PO DAILY [facility] Metoprolol Succinate (Toprol Xl) 25 mg PO DAILY [facility] Nicotine (Nicoderm Cq) 1 patch TD DAILY [facility] Nitroglycerin (Nitrostat Sl Tab) 0.4 mg SL Q5M PRN PRN Reason: CP Oxycodone/Acetaminophen (Percocet 5/325 Mg Tab) 1 tab PO Q4 PRN PRN Reason: pain level 8-10 Stop: 04/27/18 16:47 Pantoprazole Sodium (Protonix Ec Tab) 20 mg PO DAILY [facility] Sertraline HCl (Zoloft) 50 mg PO DAILY [facility] Tamsulosin HCl (Flomax) 0.4 mg PO DAILY [facility] Tiotropium [place] (Spiriva) 18 mcg INH DAILY [facility] Tramadol HCl (Ultram) 50 mg PO Q6 PRN PRN Reason: pain Physical Exam - Constitutional Appears: Well - Head Exam Head Exam: ATRAUMATIC, NORMAL INSPECTION, NORMOCEPHALIC - Eye Exam Eye Exam: EOMI, Normal appearance, PERRL Pupil Exam: NORMAL ACCOMODATION, PERRL - ENT Exam ENT Exam: Mucous Membranes Moist, Normal Exam - Neck Exam Neck exam: Positive for: Normal Inspection - Respiratory Exam Respiratory Exam: Clear to Auscultation Bilateral, NORMAL BREATHING PATTERN - Cardiovascular Exam Cardiovascular Exam: REGULAR RHYTHM - GI/Abdominal Exam GI & Abdominal Exam: Normal Bowel Sounds, Soft. absent: Tenderness - Extremities Exam Extremities exam: Positive for: normal inspection - Back Exam Back exam: NORMAL INSPECTION - Neurological Exam Neurological exam: Alert, CN II-XII Intact, Normal Gait, Oriented x3, Reflexes Normal - Psychiatric Exam Psychiatric exam: Normal Affect, Normal Mood - Skin Skin Exam: Dry, Intact, Normal Color, Warm Results - Vital Signs Recent Vital Signs: Last Vital Signs Temp 97.5 F L 04/24/18 19:59 Pulse 72 04/24/18 19:59 Resp 20 04/24/18 19:59 BP 141/73 04/24/18 19:59 Pulse Ox 98 04/24/18 19:59 - Labs Labs: Laboratory Results - last 24 hr 04/24/18 16:01 POC Glucose (mg/dL) 126 H Assessment & Plan (1) NSTEMI (non-ST elevated myocardial infarction) Assessment and Plan: cont dapt cont bb, arb cont statins plan for cath on Saturday at Status: Acute (2) CAD (coronary artery disease) Status: Acute (3) CHF exacerbation Status: Acute Priority: High (4) COPD (chronic obstructive pulmonary disease) Status: Acute (5) HLD (hyperlipidemia) Status: Acute
[2018-04-24] MEDS ORDERED: Enoxaparin 60 mg Syringe SC SCH (21:00)
[2018-04-24] MEDS ORDERED: ACETAMINOPHEN 325 MG PO SCH (22:00)
[2018-04-25] MEDS: Oxycodone/Acetaminophen 5/325 mg Tab PO PRN ×2 (08:46→20:14)
[2018-04-25] MEDS: Pantoprazole 20 mg EC Tab PO SCH (08:47)
[2018-04-25] MEDS: Metoprolol Succinate 25 mg XL Tab PO SCH (08:47)
[2018-04-25] MEDS: Tiotropium 18 mcg Cap For Inhalation INH SCH (08:48)
[2018-04-25] MEDS: Enoxaparin 40 mg Syringe SC SCH (08:48)
--- NOTE | 2018-04-25 10:16 | CP.PCM.CON ---
History of Present Illness - History of Present Illness History of Present Illness: THE PATIENT IS A 72 YEAR OLD MALE WITH A HISTORY OF CAD. HE HAD AN IWMI ABOUT 4 YEARS AGO AND A CODE HEART WAS CALLED FROM THE [facility] ER AND HE WAS TRANSFERRED TO [facility] FOR AN EMERGENCY CARDIAC CATH AND HAD STENTS INSERTED. HE NOW HAD THREE NSTEMIS THIS YEAR AND REFUSED TO GO FOR INVASIVE TREATMENT OPTING FOR CONSERVATIVE MEDICAL TREATMENT. HIS LAST NSTEMI WAS 5 DAYS AGO AND HE AGAIN REFUSED A CARDIAC CATH ON ADMISSION. HE HAD CHEST PAIN AGAIN MID WEEK AND THEN DECIDED TO HAVE A CARDIAC CATH AND IT WILL BE DONE SATURDAY. HE WAS SENT TO TCU UNTIL THEN. I WAS CALLED TO FOLLOW HIM. HE DENIES CHEST PAIN OR SOB AT THE PRESENT TIME. 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 Past Patient History - Infectious Disease Hx of Infectious Diseases: None - Tetanus Immunizations Tetanus Immunization: Unknown - Past Medical History & Family History Past Medical History?: Yes - Past Social History Smoking Status: Light Smoker < 10 Cigarettes Daily - CARDIAC Hx Cardiac Disorders: Yes Hx Cardia Arrhythmia: Yes Hx Congestive Heart Failure: Yes Hx Heart Attack: Yes Hx Hypercholesterolemia: Yes Hx Hypertension: Yes - PULMONARY Hx Respiratory Disorders: Yes Hx Asthma: Yes Hx Bronchitis: No Hx Chronic Obstructive Pulmonary Disease (COPD): Yes Hx Emphysema: Yes Hx Pneumonia: Yes - NEUROLOGICAL Hx Neurological Disorder: Yes Hx Multiple Sclerosis: Yes Hx Transient Ischemic Attacks (TIA): Yes - HEENT Hx HEENT Problems: No Hx Cataracts: Yes - RENAL Hx Chronic Kidney Disease: No - ENDOCRINE/METABOLIC Hx Endocrine Disorders: Yes Hx Diabetes Mellitus Type 2: Yes - HEMATOLOGICAL/ONCOLOGICAL Hx AIDS: No Hx Human Immunodeficiency Virus (HIV): No - INTEGUMENTARY Hx Dermatological Problems: No - MUSCULOSKELETAL/RHEUMATOLOGICAL Hx Arthritis: Yes Hx Falls: No - GASTROINTESTINAL Hx Gastrointestinal Disorders: No - GENITOURINARY/GYNECOLOGICAL Hx Genitourinary Disorders: Yes - PSYCHIATRIC Hx Anxiety: Yes Hx Depression: Yes Hx Substance Use: No - SURGICAL HISTORY Hx Surgeries: Yes Hx Cholecystectomy: Yes Hx Coronary Artery Bypass Graft: No Hx Coronary Stent: Yes (x3) Other/Comment: cataract surgery - ANESTHESIA Hx Anesthesia: Yes Hx Anesthesia Reactions: No Hx Malignant Hyperthermia: No Meds Allergies/Adverse Reactions: Allergies Allergy/AdvReac Type Severity Reaction Status Date / Time codeine Allergy Intermediate HEADACHE Verified 11/01/18 14:54 ampicillin Allergy RASH Verified 04/20/18 14:24 - Medications Medications: Current Medications Acetaminophen (Tylenol 325mg Tab) 325 mg PO Q6 PRN PRN Reason: for pain level 1-3, temp 100.4 Albuterol/Ipratropium (Duoneb 3 Mg/0.5 Mg (3 Ml) Ud) 3 ml IH Q6 PRN PRN Reason: Wheezing Aspirin (Ecotrin) 81 mg PO DAILY [facility] Last Admin: 04/25/18 08:47 Dose: 81 mg Atorvastatin Calcium (Lipitor) 20 mg PO DAILY [facility] Last Admin: 04/25/18 08:48 Dose: Not Given Clopidogrel Bisulfate (Plavix) 75 mg PO DAILY [facility] Last Admin: 04/25/18 08:47 Dose: 75 mg Digoxin (Digoxin) 0.125 mg PO QOTHERDAY [facility] Docusate Sodium (Colace) 100 mg PO DAILY [facility] Last Admin: 04/25/18 08:46 Dose: 100 mg Enoxaparin Sodium (Lovenox) 40 mg SC DAILY [facility]; Protocol Last Admin: 04/25/18 08:48 Dose: 40 mg Isosorbide Mononitrate (Imdur Er) 30 mg PO DAILY [facility] Last Admin: 04/25/18 08:47 Dose: 30 mg Losartan Potassium (Cozaar) 25 mg PO DAILY [facility] Last Admin: 04/25/18 08:47 Dose: 25 mg Metoprolol Succinate (Toprol Xl) 25 mg PO DAILY [facility] Last Admin: 04/25/18 08:47 Dose: 25 mg Nicotine (Nicoderm Cq) 1 patch TD DAILY [facility] Last Admin: 04/25/18 08:47 Dose: 1 patch Nitroglycerin (Nitrostat Sl Tab) 0.4 mg SL Q5M PRN PRN Reason: CP Oxycodone/Acetaminophen (Percocet 5/325 Mg Tab) 1 tab PO Q4 PRN PRN Reason: pain level 8-10 Stop: 04/27/18 16:47 Last Admin: 04/25/18 08:46 Dose: 1 tab Pantoprazole Sodium (Protonix Ec Tab) 20 mg PO DAILY [facility] Last Admin: 04/25/18 08:47 Dose: 20 mg Sertraline HCl (Zoloft) 50 mg PO DAILY [facility] Last Admin: 04/25/18 08:48 Dose: 50 mg Tamsulosin HCl (Flomax) 0.4 mg PO DAILY [facility] Last Admin: 04/25/18 08:47 Dose: 0.4 mg Tiotropium [place] (Spiriva) 18 mcg INH DAILY [facility] Last Admin: 04/25/18 08:48 Dose: 18 mcg Tramadol HCl (Ultram) 50 mg PO Q6 PRN PRN Reason: pain Physical Exam - Respiratory Exam Respiratory Exam: Clear to Auscultation Bilateral - Cardiovascular Exam Cardiovascular Exam: REGULAR RHYTHM, +S1, +S2 - Extremities Exam Additional comments: NO LE EDEMA Results - Vital Signs Recent Vital Signs: Last Vital Signs Temp 97.5 F L 04/24/18 19:59 Pulse 72 04/24/18 19:59 Resp 20 04/24/18 19:59 BP 141/73 04/24/18 19:59 Pulse Ox 98 04/24/18 19:59 - Labs Labs: Laboratory Results - last 24 hr 04/24/18 04/24/18 04/25/18 16:01 21:16 06:26 POC Glucose (mg/dL) 126 H 127 H 154 H Assessment & Plan - Assessment and Plan (Free Text) Assessment: CAD WITH RECENT NSTEMI HYPERTENSION HYPERLIPIDEMIA TYPE 2 DM Plan: CONTINUE ASPIRIN, CLOPIDOGREL, LOVENOX, METOPROLOL, LOSARTAN, DIGOXIN, ATORVASTATIN, NITRATES I SPOKE TO THE HOSPITALIST AND THE PHYSICAL THERAPIST AND WE WILL ONLY DO LOW LEVEL PT AND OT DUE TO HIS RECENT NSTEMI FOR CARDIAC CATH ON SATURDAY
--- NOTE | 2018-04-25 11:40 | CP.PCM.HP ---
History of Present Illness - History of Present Illness History of Present Illness: 72 y/o male with PMH [place] , CAD s/p stents, HTN ,DM, active smoker , COPD, chronic anemia presented with midsternal pressure like chest pain, elevated troponins and EKG changes . He was admitted in telemetry with NSTEMI , started on medical management and cardiology consulted . Patient initially refused cardiac cath but now agreeable for the procedure. At present chest pain free and Troponins trending down PT consulted and recommended PT for ADL-s. Patient transferred to TCU for physical therapy . Plan is for cardiac cath next week At present feeling weak, denies any chest pain or SOB . Allergies ; Codeine , ampicillin PMH :[place] , CAD s/p stents, HTN ,DM, active smoker , COPD, chronic anemia, cardiac arrythmia Surgery : PTCA with stents in 2016, cholecystectomy , cataract surgery Medications; Losartan, Digoxin , metoprolol,ASA, plavix, statin, Spiriva, Nicotine patch,Ultram,Metformin,Flomax,Zoloft Social history ; Lives in [place] by himself Smokes 2-3 cig/day, denies ETOH or drug abuse,Surrogate decision maker is his brother , Full code now Father at 92 y/o of [place] PMD: Dr House Code status: Full code TOS ; 10 point review of system negative except above Present on Admission - Present on Admission Any Indicators Present on Admission: No Review of Systems - Review of Systems All systems: reviewed and no additional remarkable complaints except Past Patient History - Infectious Disease Hx of Infectious Diseases: None - Tetanus Immunizations Tetanus Immunization: Unknown - Past Medical History & Family History Past Medical History?: Yes - Past Social History Smoking Status: Light Smoker < 10 Cigarettes Daily Alcohol: None Drugs: Denies Home Situation {Lives}: Alone Domestic Violence: Negative - CARDIAC Hx Cardiac Disorders: Yes Hx Cardia Arrhythmia: Yes Hx Congestive Heart Failure: Yes Hx Heart Attack: Yes Hx Hypercholesterolemia: Yes Hx Hypertension: Yes - PULMONARY Hx Respiratory Disorders: Yes Hx Asthma: Yes Hx Bronchitis: No Hx Chronic Obstructive Pulmonary Disease (COPD): Yes Hx Emphysema: Yes Hx Pneumonia: Yes - NEUROLOGICAL Hx Neurological Disorder: Yes Hx Multiple Sclerosis: Yes Hx Transient Ischemic Attacks (TIA): Yes - HEENT Hx HEENT Problems: No Hx Cataracts: Yes - RENAL Hx Chronic Kidney Disease: No - ENDOCRINE/METABOLIC Hx Endocrine Disorders: Yes Hx Diabetes Mellitus Type 2: Yes - HEMATOLOGICAL/ONCOLOGICAL Hx AIDS: No Hx Human Immunodeficiency Virus (HIV): No - INTEGUMENTARY Hx Dermatological Problems: No - MUSCULOSKELETAL/RHEUMATOLOGICAL Hx Arthritis: Yes Hx Falls: No - GASTROINTESTINAL Hx Gastrointestinal Disorders: No - GENITOURINARY/GYNECOLOGICAL Hx Genitourinary Disorders: Yes - PSYCHIATRIC Hx Anxiety: Yes Hx Depression: Yes Hx Substance Use: No - SURGICAL HISTORY Hx Surgeries: Yes Hx Cholecystectomy: Yes Hx Coronary Artery Bypass Graft: No Hx Coronary Stent: Yes (x3) Other/Comment: cataract surgery - ANESTHESIA Hx Anesthesia: Yes Hx Anesthesia Reactions: No Hx Malignant Hyperthermia: No Meds Allergies/Adverse Reactions: Allergies Allergy/AdvReac Type Severity Reaction Status Date / Time codeine Allergy Intermediate HEADACHE Verified 04/24/18 14:54 ampicillin Allergy RASH Verified 04/20/18 14:24 Physical Exam - Constitutional Appears: Well, Non-toxic, No Acute Distress, Cachectic, Chronically Ill - Head Exam Head Exam: ATRAUMATIC, NORMAL INSPECTION, NORMOCEPHALIC - Eye Exam Eye Exam: EOMI, Normal appearance, PERRL Pupil Exam: NORMAL ACCOMODATION - ENT Exam ENT Exam: Mucous Membranes Moist, Normal Exam - Neck Exam Neck exam: Positive for: Full Rom, Normal Inspection - Respiratory Exam Respiratory Exam: Clear to Auscultation Bilateral, NORMAL BREATHING PATTERN. absent: Rales, Rhonchi, Wheezes, Respiratory Distress - Cardiovascular Exam Cardiovascular Exam: REGULAR RHYTHM, RRR, +S1, +S2. absent: JVD - GI/Abdominal Exam GI & Abdominal Exam: Normal Bowel Sounds, Soft. absent: Distended, Guarding, Rebound, Tenderness - Rectal Exam Rectal Exam: Deferred - Extremities Exam Extremities exam: Positive for: normal capillary refill, normal inspection, pedal pulses present. Negative for: pedal edema - Back Exam Back exam: NORMAL INSPECTION - Neurological Exam Neurological exam: Alert, CN II-XII Intact, Oriented x3 - Psychiatric Exam Psychiatric exam: Flat Affect - Skin Skin Exam: Dry, Normal Color, Warm Results - Vital Signs Recent Vital Signs: Last Vital Signs Temp 97.5 F L 04/24/18 19:59 Pulse 72 04/24/18 19:59 Resp 20 04/24/18 19:59 BP 141/73 04/24/18 19:59 Pulse Ox 98 04/24/18 19:59 - Labs Labs: Laboratory Results - last 24 hr 04/24/18 04/24/18 04/25/18 16:01 21:16 06:26 POC Glucose (mg/dL) 126 H 127 H 154 H 04/25/18 11:02 POC Glucose (mg/dL) 192 H Assessment & Plan - Assessment and Plan (Free Text) Assessment: 72 y/p male with PMH [place] , CAD s/p stents, HTN ,DM, active smoker , COPD, chronic anemia presented with midsternal pressure like chest pain, elevated troponins and EKG changes . He was admitted in telemetry witH NSTEMI , started on medical management and cardiology consulted . Patient initially refused cardiac cath b ut now agreeable for the procedure. At presenty chest pain free and Troponin trending down PT consulted and recommended PT for ADL-s. Patient transferred to TCU fopr physical therapy . Plan is for cardiac cath next week 1. Generalized weakness / deconditioning Admit to TCU Start light therapy for ADL-s 2. Un stable angina/ NSTEMI Continue medical management with ASA, plavix , statin,Metoprolol, Isosorbide Cardiology consult on board , following Plan for cardiac cath on Saturday . Patient in agreement Nitro PRN for chest pain O2 via NC PRN 3.Chronic CHF , systolic dysfunction Last echo in 12/2017 shows EF =20 with LVH continue Losartan, Metoprolol, Digoxin 4.DM type II chronic On Metformin at home Last Hgb A1xc 7.4 continue accuchecks, insulin coverage and diabetic diet on Losartan 5.COPD stable Duonebs PRN , Spiriva 6. Active smoker nicotine patch 7.Hypertension controlled chronic Resume home meds 8.Anxiety and depression on zoloft 9. BPH on Flomax 10.DVT prophylaxis Lovenox 40 mg SQ daily
[2018-04-26] MEDS: Tiotropium 18 mcg Cap For Inhalation INH SCH (08:16)
[2018-04-26] MEDS: Digoxin 125 mcg (0.125 mg) Tab PO SCH (08:17)
[2018-04-26] MEDS: Pantoprazole 20 mg EC Tab PO SCH (08:18)
[2018-04-26] MEDS: Enoxaparin 40 mg Syringe SC SCH (08:18)
[2018-04-26] MEDS: Metoprolol Succinate 25 mg XL Tab PO SCH (08:18)
[2018-04-26 15:28] LABS: MEAN CELL VOLUME 95.1 fl (80.0-94.0); MEAN CORPUSCULAR HEMOGLOBIN 31.2 pg (27.0-31.0); MEAN CORPUSCULAR HGB CONC 32.8 g/dL (33.0-37.0); RBC 3.53 Mil/uL (4.40-5.90); RED CELL DISTRIBUTION WIDTH 14.4 % (11.5-14.5); WHITE BLOOD COUNT 6.8 K/uL (4.8-10.8)
[2018-04-27] MEDS: Enoxaparin 40 mg Syringe SC SCH (09:32)
[2018-04-27] MEDS: Metoprolol Succinate 25 mg XL Tab PO SCH (09:33)
[2018-04-27] MEDS: Pantoprazole 20 mg EC Tab PO SCH (09:33)
[2018-04-27] MEDS: Tiotropium 18 mcg Cap For Inhalation INH SCH (09:33)
--- NOTE | 2018-04-27 11:33 | CP.PCM.PN ---
Subjective - Date & Time of Evaluation Date of Evaluation: 04/27/18 Time of Evaluation: 09:20 - Subjective Subjective: NO CHEST PAIN OR SOB Objective - Vital Signs/Intake and Output Vital Signs (last 24 hours): Temp Pulse Resp BP Pulse Ox 98.2 F 66 20 125/60 100 04/27/18 09:10 04/27/18 09:33 04/27/18 09:10 04/27/18 09:33 04/27/18 09:10 - Medications Medications: Current Medications Acetaminophen (Tylenol 325mg Tab) 325 mg PO Q6 PRN PRN Reason: for pain level 1-3, temp 100.4 Albuterol/Ipratropium (Duoneb 3 Mg/0.5 Mg (3 Ml) Ud) 3 ml IH Q6 PRN PRN Reason: Wheezing Aspirin (Ecotrin) 81 mg PO DAILY [facility] Last Admin: 04/27/18 09:32 Dose: 81 mg Atorvastatin Calcium (Lipitor) 20 mg PO DAILY@2100 [facility] Last Admin: 04/26/18 21:02 Dose: 20 mg Clopidogrel Bisulfate (Plavix) 75 mg PO DAILY [facility] Last Admin: 04/27/18 09:33 Dose: 75 mg Digoxin (Digoxin) 0.125 mg PO QOTHERDAY [facility] Last Admin: 04/26/18 08:17 Dose: 0.125 mg Docusate Sodium (Colace) 100 mg PO DAILY [facility] Last Admin: 04/27/18 09:31 Dose: 100 mg Enoxaparin Sodium (Lovenox) 40 mg SC DAILY [facility]; Protocol Last Admin: 04/27/18 09:32 Dose: 40 mg Isosorbide Mononitrate (Imdur Er) 30 mg PO DAILY [facility] Last Admin: 04/27/18 09:32 Dose: 30 mg Lactulose (Enulose) 20 gm PO DAILY PRN PRN Reason: Constipation Last Admin: 04/26/18 14:07 Dose: 20 gm Losartan Potassium (Cozaar) 25 mg PO DAILY [facility] Last Admin: 04/27/18 09:31 Dose: 25 mg Metoprolol Succinate (Toprol Xl) 25 mg PO DAILY [facility] Last Admin: 04/27/18 09:33 Dose: 25 mg Nicotine (Nicoderm Cq) 1 patch TD DAILY [facility] Last Admin: 04/27/18 09:32 Dose: 1 patch Nitroglycerin (Nitrostat Sl Tab) 0.4 mg SL Q5M PRN PRN Reason: CP Pantoprazole Sodium (Protonix Ec Tab) 20 mg PO DAILY [facility] Last Admin: 04/27/18 09:33 Dose: 20 mg Sertraline HCl (Zoloft) 50 mg PO DAILY [facility] Last Admin: 04/27/18 09:33 Dose: 50 mg Tamsulosin HCl (Flomax) 0.4 mg PO DAILY [facility] Last Admin: 04/27/18 09:32 Dose: 0.4 mg Tiotropium [place] (Spiriva) 18 mcg INH DAILY [facility] Last Admin: 04/27/18 09:33 Dose: 18 mcg Tramadol HCl (Ultram) 50 mg PO Q6 PRN PRN Reason: pain Last Admin: 04/27/18 06:34 Dose: 50 mg - Labs Labs: 04/26/18 14:06 - Respiratory Exam Respiratory Exam: Clear to Ausculation Bilateral - Cardiovascular Exam Cardiovascular Exam: REGULAR RHYTHM, +S1, +S2 - Extremities Exam Additional comments: NO LE EDEMA Assessment and Plan - Assessment and Plan (Free Text) Assessment: CAD HYPERTENSION HYPERLIPIDEMIA Plan: FOR CARDIAC CATH IN AM
[2018-04-28] MEDS: Tiotropium 18 mcg Cap For Inhalation INH SCH (08:13)
[2018-04-28] MEDS: Enoxaparin 40 mg Syringe SC SCH (08:14)
[2018-04-28] MEDS: Metoprolol Succinate 25 mg XL Tab PO SCH (08:17)
[2018-04-28] MEDS: Pantoprazole 20 mg EC Tab PO SCH (08:17)
[2018-04-28] MEDS: Digoxin 125 mcg (0.125 mg) Tab PO SCH (08:17)
[2018-04-28 08:18] VITALS: PULSE 61
[2018-04-28 08:21] VITALS: BP 122/66; PULSE 61; RESP 20; TEMP 97.8; O2SAT 100
--- NOTE | 2018-04-28 08:49 | CP.PCM.PN ---
Subjective - Date & Time of Evaluation Date of Evaluation: 04/28/18 Time of Evaluation: 08:20 - Subjective Subjective: PATIENT IS NOW REFUSING TO GO FOR CARDIAC CATH NO CHEST PAIN OR SOB Objective - Vital Signs/Intake and Output Vital Signs (last 24 hours): Temp Pulse Resp BP Pulse Ox 97.8 F 61 20 122/66 100 04/28/18 08:20 04/28/18 08:20 04/28/18 08:20 04/28/18 08:20 04/28/18 08:20 - Medications Medications: Current Medications Acetaminophen (Tylenol 325mg Tab) 325 mg PO Q6 PRN PRN Reason: for pain level 1-3, temp 100.4 Albuterol/Ipratropium (Duoneb 3 Mg/0.5 Mg (3 Ml) Ud) 3 ml IH Q6 PRN PRN Reason: Wheezing Aspirin (Ecotrin) 81 mg PO DAILY [facility] Last Admin: 04/28/18 08:18 Dose: 81 mg Atorvastatin Calcium (Lipitor) 20 mg PO DAILY@2100 [facility] Last Admin: 04/27/18 20:33 Dose: 20 mg Clopidogrel Bisulfate (Plavix) 75 mg PO DAILY [facility] Last Admin: 04/28/18 08:18 Dose: 75 mg Digoxin (Digoxin) 0.125 mg PO QOTHERDAY [facility] Last Admin: 04/28/18 08:17 Dose: 0.125 mg Docusate Sodium (Colace) 100 mg PO DAILY [facility] Last Admin: 04/28/18 08:17 Dose: 100 mg Enoxaparin Sodium (Lovenox) 40 mg SC DAILY [facility]; Protocol Last Admin: 04/28/18 08:14 Dose: 40 mg Isosorbide Mononitrate (Imdur Er) 30 mg PO DAILY [facility] Last Admin: 04/28/18 08:17 Dose: 30 mg Lactulose (Enulose) 20 gm PO DAILY PRN PRN Reason: Constipation Last Admin: 04/26/18 14:07 Dose: 20 gm Losartan Potassium (Cozaar) 25 mg PO DAILY [facility] Last Admin: 04/28/18 08:17 Dose: 25 mg Metoprolol Succinate (Toprol Xl) 25 mg PO DAILY [facility] Last Admin: 04/28/18 08:17 Dose: 25 mg Nicotine (Nicoderm Cq) 1 patch TD DAILY [facility] Last Admin: 04/28/18 08:14 Dose: 1 patch Nitroglycerin (Nitrostat Sl Tab) 0.4 mg SL Q5M PRN PRN Reason: CP Pantoprazole Sodium (Protonix Ec Tab) 20 mg PO DAILY [facility] Last Admin: 04/28/18 08:17 Dose: 20 mg Sertraline HCl (Zoloft) 50 mg PO DAILY [facility] Last Admin: 04/28/18 08:17 Dose: 50 mg Tamsulosin HCl (Flomax) 0.4 mg PO DAILY [facility] Last Admin: 04/28/18 08:17 Dose: 0.4 mg Tiotropium [place] (Spiriva) 18 mcg INH DAILY [facility] Last Admin: 04/28/18 08:13 Dose: 18 mcg Tramadol HCl (Ultram) 50 mg PO Q6 PRN PRN Reason: pain Last Admin: 04/28/18 08:16 Dose: 50 mg - Labs Labs: 04/26/18 14:06 - Respiratory Exam Respiratory Exam: Clear to Ausculation Bilateral - Cardiovascular Exam Cardiovascular Exam: REGULAR RHYTHM, +S1, +S2 - Extremities Exam Additional comments: NO LE EDEMA Assessment and Plan - Assessment and Plan (Free Text) Assessment: CAD WITH RECENT NSTEMI HYPERTENSION HYPERLIPIDEMIA TYPE 2 DM Plan: THE PATIENT WILL PROBABLY BE DISCHARGED TODAY HE DOESN'T WANT TO GO FOR A CARDIAC CATH
--- NOTE | 2018-04-28 09:03 | PCM.RRT ---
<Deangelo Day - Last Filed: 04/28/18 10:03> [facility] [employer] Nurse Assessment - Situation [facility] [employer] Responder Arrival Time: 08:41 - Ventilator Settings Peak Flow: 200 I.Reason for [facility] [employer] - A) Acute Change in Patient: Subjective: [facility] [employer] Time: 8:40AM [facility] [employer] Arrival Time: 8:41 AM [facility] [employer] Location: TCU 710-2 [facility] VS on Arrival: BP 128/74, HR 78, O2 Sat97%, Temp 97.3, RR 17 S: [facility] called by RN after patient started c/o sharp substernal chest pain, 5/10 in intensity, as per patient the pain was brief and lasted approximately 1 minute and disappeared, was located in the center of chest with no radiation to neck, arms, back or any other area. The pain was not associated with SOB, palpitations, breathing, nausea or other complain. Mr Blakely is a 72 y/o male with PMHx of [place], CAD s/p stents, HTN ,DM, active s moker, COPD, he has a history of a recent NSTEMI with elevated troponin and EKG changes on 04/20 and was admitted in tele, after evaluated by cardiology and plan for cardiac cath that patient refused and was transfer to TCU chest pain free and stable for further PT treatment and cath at later time to which he was agreeable for today and now he is refusing again. Patient at this time after eval by [facility] [employer] team denies chest pain, N/V, abdominal pain or any other acute complain. O: HEENT: Normocephalic and atraumatic Chest: Normal inspection, no tenderness to palp CV: RRR, S1, S2. RESP:CTA b/l, no wheezing. ABD: Soft, no tenderness EXT: No Edema NEURO: AAOx3. A/P Mr Blakely is a 72 y/o male with PMHx of [place], CAD s/p stents, HTN ,DM, active smoker, COPD, he has a history of a recent NSTEMI with elevated troponin and EKG changes on 04/20 and was admitted in tele, after evaluated by cardiology and plan for cardiac cath that patient refused and was transferred to TCU chest pain free and stable for further PT treatment and cath procedure at a later time to which he was agreeable for today 04/28 and now he is refusing again. Patient at this time after eval by [facility] [employer] team denies chest pain, N/V, abdominal pain or any other acute complain. [facility] [employer] intervention and Plan: -Stat EKG -Stat Troponin I and second set Q6h x 1 -Cardiology Dr House notified, recommendations appreciated. Condition at the end of [employer] [employer]: Patient stable, chest pain free, VS : BP 139/83, HR 75, RR16. <Lana Corona - Last Filed: 04/28/18 16:21> Attending/Attestation - Attestation I have personally seen and examined this patient.: Yes I have fully participated in the care of the patient.: Yes I have reviewed all pertinent clinical information, including history, physical exam and plan: Yes Notes (Text): 04/28/18 16:20 agree with findings and plan as above. pt found to have elevated troponin 0.5, discussed with cardiology, will transfer to TELE for 48 hours AC lovenox 1 mg /kg q12. patient is refusing cardiac catheterization, was scheduled for this morning however refused to go. as per interventional, after obs on tele, patient should be discharged home with asa brilinta bb acei statin.
--- NOTE | 2018-04-28 18:17 | CARD ---
APPROVED REPORT Date of service: 04/28/2018 EKG Measurement Heart [id number] <Conclusion> Normal sinus rhythm Left anterior fascicular block ST & T wave abnormality, consider anterolateral ischemia Abnormal ECG
== END 2018-04-28 11:10 | disposition short-term general hospital (02) | DRG 281 ==
LOC: H.TCU 15:18
PROC: F07Z9FZ Gait Training/Functional Ambulation Treatment using Assistive, Adaptive, Supportive or Protective Equipment (ICD-10-PCS; principal; 2018-04-24)
PROC: F07Z8FZ Transfer Training Treatment using Assistive, Adaptive, Supportive or Protective Equipment (ICD-10-PCS; 2018-04-24)
PROC: F07Z5ZZ Bed Mobility Treatment (ICD-10-PCS; 2018-04-24)
DX: I21.4 Non-ST elevation (NSTEMI) myocardial infarction (principal); I50.22 Chronic systolic (congestive) heart failure; E11.9 Type 2 diabetes mellitus without complications; E78.00 Pure hypercholesterolemia, unspecified; E78.5 Hyperlipidemia, unspecified; F32.9 Major depressive disorder, single episode, unspecified; F41.9 Anxiety disorder, unspecified; G35 Multiple sclerosis; I25.2 Old myocardial infarction; I11.0 Hypertensive heart disease with heart failure; I25.10 Atherosclerotic heart disease of native coronary artery without angina pectoris; Z95.5 Presence of coronary angioplasty implant and graft; Z86.73 Personal history of transient ischemic attack (TIA), and cerebral infarction without residual deficits; F17.210 Nicotine dependence, cigarettes, uncomplicated; Z88.6 Allergy status to analgesic agent; Z88.0 Allergy status to penicillin; J44.9 Chronic obstructive pulmonary disease, unspecified; N40.0 Benign prostatic hyperplasia without lower urinary tract symptoms

== ENCOUNTER 2018-04-28 11:14 | Inpatient (IN) | payer MEDICARE, OTHER ==
--- NOTE | 2018-04-28 11:34 | ED PDOC ---
HPI: Chest Pain Time Seen by Provider: 04/28/18 11:25 Chief Complaint (Provider): chest pain History Per: Patient History/Exam Limitations: no limitations Onset/Duration Of Symptoms: Hrs (today) Additional Complaint(s): Xenia Blakely is a 72 year old male, with a past medical history of COPD, who was transferred to the emergency department from TCU after experiencing mild substernal chest pain that radiates to back. Patient's troponin was found to be elevated. He also reports a mild chronic shortness of breath but denies any other medical complaints. PMD: None provided. Past Medical History Reviewed: Historical Data, Nursing Documentation, Vital Signs - Medical History PMH: Anemia, Anxiety, Arthritis, Asthma, CAD, Cardia Arrhythmia, CHF, COPD, CVA, Depression, Diabetes, Emphysema, Fractures (bilateral feet), HTN, Hypercholesterolemia, Hyperlipidemia, Multiple Sclerosis, Pneumonia, TIA Denies: Bronchitis, HIV, Chronic Kidney Disease - Surgical History Surgical History: Cholecystectomy, Coronary Stent (x3) Denies: CABG - Family History Family History: States: Unknown Family Hx, Diabetes - Home Medications Home Medications: Ambulatory Orders Medication Instructions Recorded Aspirin [Ecotrin] 81 mg PO DAILY #100 tabec 09/18/17 Atorvastatin [Lipitor] 20 mg PO DAILY #30 tab 09/18/17 Clopidogrel [Plavix] 75 mg PO DAILY #30 tab 09/18/17 Metoprolol Succinate XL [Toprol XL] 25 mg PO DAILY #30 tab 09/18/17 Sertraline [Zoloft] 50 mg PO DAILY #30 tab 09/18/17 Tamsulosin [Flomax] 0.4 mg PO DAILY #30 cap 09/18/17 Tiotropium [Spiriva] 18 mcg INH DAILY #100 cap 09/18/17 Albuterol/Ipratropium [Duoneb 3 3 ml IH Q6 PRN #30 neb 10/16/17 mg/0.5 mg (3 ml) UD] Digoxin 0.125 mg PO QOTHERDAY tab 12/30/17 Losartan [Cozaar] 25 mg PO DAILY #30 tab 12/30/17 Isosorbide Mononitrate ER [Imdur 30 mg PO DAILY tab 04/04/18 ER] traMADol [Ultram] 50 mg PO Q6 PRN #20 tab 04/04/18 Acetaminophen [Tylenol] 325 mg PO Q6 04/24/18 Docusate [Colace] 100 mg PO DAILY 04/24/18 Enoxaparin [Lovenox] 50 mg SQ Q12 04/24/18 Metoprolol Succinate XL [Toprol XL] 25 ng PO DAILY 04/24/18 Nicotine 7 mg/24 hr [Nicoderm CQ] 21 mg DAILY 04/24/18 Nitroglycerin [Nitrostat SL Tab] 0.4 mg SL Q5MIN PRN 04/24/18 Pantoprazole Sodium [Protonix] 20 mg PO DAILY 04/24/18 oxyCODONE/Acetaminophen [Percocet 1 tab PO Q4 PRN 04/24/18 5/325 mg Tab] - Allergies Allergies/Adverse Reactions: Allergies Allergy/AdvReac Type Severity Reaction Status Date / Time codeine Allergy Intermediate HEADACHE Verified 04/24/18 14:54 ampicillin Allergy RASH Verified 04/20/18 14:24 Review of Systems ROS Statement: Except As Marked, All Systems Reviewed And Found Negative Cardiovascular: Positive for: Chest Pain Respiratory: Positive for: Shortness of Breath (chronic) Physical Exam - Reviewed Nursing Documentation Reviewed: Yes Vital Signs Reviewed: Yes - Physical Exam Appears: Positive for: No Acute Distress Head Exam: Positive for: ATRAUMATIC, NORMAL INSPECTION, NORMOCEPHALIC Skin: Positive for: Normal Color, Warm, Dry Eye Exam: Positive for: Normal appearance, EOMI, PERRL Neck: Positive for: Normal, Painless ROM, Supple Cardiovascular/Chest: Positive for: Regular Rate, Rhythm. Negative for: Murmur Respiratory: Positive for: Decreased Breath Sounds. Negative for: Respiratory Distress Gastrointestinal/Abdominal: Positive for: Normal Exam, Soft. Negative for: Tenderness, Guarding, Rebound Back: Positive for: Normal Inspection. Negative for: L CVA Tenderness, R CVA Tenderness, Vertebral Tenderness Extremity: Positive for: Normal ROM (upper and lower extremities). Negative for: Deformity, Swelling Neurologic/Psych: Positive for: Alert, Oriented Medical Decision Making Medical Decision Making: Time: 11:25 Initial Plan: --EKG --CMP --Troponin I --CBC w/ differential --Admit to hospital Scribe Attestation: Documented by Elian Mckeon, acting as a scribe for Pete Coats MD. Provider Scribe Attestation: All medical record entries made by the Scribe were at my direction and personally dictated by me. I have reviewed the chart and agree that the record accurately reflects my personal performance of the history, physical exam, medical decision making, and the department course for this patient. I have also personally directed, reviewed, and agree with the discharge instructions and disposition. Disposition - Clinical Impression Clinical Impression: NSTEMI (non-ST elevated myocardial infarction) - Patient ED Disposition Is Patient to be Admitted: Yes - Disposition Disposition Time: 11:37 Condition: FAIR - Pt Status Changed To: Hospital Disposition Of: Inpatient - Admit Certification Admit to Inpatient:: After my assessment, the patient will require hospitalization for at least two midnights. This is because of the severity of symptoms shown, intensity of services needed, and/or the medical risk in this patient being treated as an outpatient. - POA Present On Arrival: None
[2018-04-28 12:04] LABS: BASO # 0.1 K/uL (0.0-0.2); BASO % 1.2 % (0.0-2.0); EOS # 0.5 K/uL (0.0-0.7); EOS % 7.5 % (0.0-4.0); HEMOGLOBIN 11.2 g/dL (12.0-18.0); LYMPH # 1.8 K/uL (1.0-4.3); LYMPH % 26.4 % (20.0-40.0); MEAN CORPUSCULAR HEMOGLOBIN 31.1 pg (27.0-31.0); MEAN CORPUSCULAR HGB CONC 32.4 g/dL (33.0-37.0); MEAN PLATELET VOLUME 8.5 fl (7.2-11.7); MONO # 0.5 K/uL (0.0-0.8); MONO % 7.8 % (0.0-10.0); NEUT # 3.9 K/uL (1.8-7.0); NEUT % 57.1 % (50.0-75.0); NRBC % 0.1 % (0.0-0.0); RBC 3.59 Mil/uL (4.40-5.90); RED CELL DISTRIBUTION WIDTH 14.8 % (11.5-14.5); WHITE BLOOD COUNT 6.8 K/uL (4.8-10.8)
[2018-04-28 12:20] LABS: ALB/GLOB RATIO 1.3 (1.0-2.1); ALBUMIN 3.8 g/dL (3.5-5.0); ALT/SGPT 38 U/L (21-72); AST/SGOT 34 U/L (17-59); BLOOD UREA NITROGEN 14 mg/dl (9-20); CALCIUM 8.8 mg/dL (8.4-10.2); GFR NON-AFRICAN AMERICAN > 60
--- NOTE | 2018-04-28 14:11 | CP.PCM.HP ---
<Deangelo Day - Last Filed: 04/28/18 17:18> History of Present Illness - History of Present Illness History of Present Illness: CC: Chest pain Mr Blakely is a 72 y/o male with PMHx of [place], CAD (s/p 3 stents 2016), HTN ,DM, active smoker, COPD and Chronic anemia. Patient has history of NSTEMI with elevated troponin and EKG changes on 04/20 requiring admission to telemetry, he was evaluated by cardiology and was planned for cardiac cath last week that patient refused during his last admission, he was transferred to TCU stable and chest pain free on 04/24/18 for PT treatment for ADLs with cardiac cath procedure scheduled for today 04/28 to which he was agreeable, and then refused earlier in this morning. The patient started c/o sharp substernal moderate 5/10 chest pain today of brief duration, with no radiation at 8:40AM and BRICK WASHER was called on him by nurse, troponin I were ordered and found elevated and patient was transferred to ED for evaluation. Patient denies chest pain at this time, abdominal pain, N/V, headache, or cough. Patient c/o pain sharp 4/10 in her right upper back close to the shoulder area, with some occasional radiation to the neck, states he has had that pain present for long time. PMD: Dr House ROS: 10 point review of system negative except above PMH: [place], CAD s/p stentsx3, HTN ,DM, active smoker ,COPD, Chronic anemia, Cardiac arrhythmia. PSH: Cholecystectomy-2013, Coronary Stent (x3-2016); Cataract surgery SH: Lives alone, reports smokes 5-6 Cigarettes daily for 40yrs; denies illegal drug use; denies Alcohol use FH: Father had NH age 92, mother 96 y/o after hip fracture. Allergies: Ampicillin(rash/sob), Codeine-H/A Code status: Full code ED course: ED course: VS stable Labs + troponin I 9:36AM- 0.517, 11:55AM 0.388 EKG NSR RBBB, left anterior fasciclar block, inferior [place] age undetermined. Present on Admission - Present on Admission Any Indicators Present on Admission: No History of DVT/PE: No History of Uncontrolled Diabetes: No Urinary Catheter: No Decubitus Ulcer Present: No Past Patient History - Infectious Disease Hx of Infectious Diseases: None - Tetanus Immunizations Tetanus Immunization: Unknown - Past Medical History & Family History Past Medical History?: Yes - Past Social History Smoking Status: Light Smoker < 10 Cigarettes Daily - CARDIAC Hx Cardia Arrhythmia: Yes Hx Congestive Heart Failure: Yes Hx Hypercholesterolemia: Yes Hx Hypertension: Yes - PULMONARY Hx Asthma: Yes Hx Bronchitis: No Hx Chronic Obstructive Pulmonary Disease (COPD): Yes Hx Emphysema: Yes Hx Pneumonia: Yes - NEUROLOGICAL Hx Multiple Sclerosis: Yes Hx Transient Ischemic Attacks (TIA): Yes - HEENT Hx HEENT Problems: No Hx Cataracts: Yes - RENAL Hx Chronic Kidney Disease: No - ENDOCRINE/METABOLIC Hx Endocrine Disorders: Yes Hx Diabetes Mellitus Type 2: Yes - HEMATOLOGICAL/ONCOLOGICAL Hx Anemia: Yes Hx Human Immunodeficiency Virus (HIV): No - INTEGUMENTARY Hx Dermatological Problems: No - MUSCULOSKELETAL/RHEUMATOLOGICAL Hx Arthritis: Yes Hx Fractures: Yes (bilateral feet) - GASTROINTESTINAL Hx Gastrointestinal Disorders: No - GENITOURINARY/GYNECOLOGICAL Hx Genitourinary Disorders: Yes - PSYCHIATRIC Hx Anxiety: Yes Hx Depression: Yes Hx Substance Use: No - SURGICAL HISTORY Hx Cholecystectomy: Yes Hx Coronary Artery Bypass Graft: No Hx Coronary Stent: Yes (x3) - ANESTHESIA Hx Anesthesia: Yes Hx Anesthesia Reactions: No Hx Malignant Hyperthermia: No Meds Allergies/Adverse Reactions: Allergies Allergy/AdvReac Type Severity Reaction Status Date / Time codeine Allergy Intermediate HEADACHE Verified 04/24/18 14:54 ampicillin Allergy RASH Verified 04/20/18 14:24 Physical Exam - Constitutional Appears: No Acute Distress - Head Exam Head Exam: ATRAUMATIC, NORMOCEPHALIC - Eye Exam Eye Exam: EOMI, PERRL - ENT Exam ENT Exam: Mucous Membranes Moist - Neck Exam Neck exam: Positive for: Tenderness Additional comments: there is tenderness to point palpation of upper right back area close to the neck on the right side - Respiratory Exam Respiratory Exam: Clear to Auscultation Bilateral. absent: Wheezes - Cardiovascular Exam Cardiovascular Exam: RRR, +S1, +S2 - GI/Abdominal Exam GI & Abdominal Exam: Normal Bowel Sounds, Soft. absent: Mass, Tenderness - Extremities Exam Extremities exam: Negative for: calf tenderness, pedal edema - Neurological Exam Neurological exam: Alert, Oriented x3 Additional comments: Gait with cane - Psychiatric Exam Psychiatric exam: Normal Affect, Normal Mood - Skin Skin Exam: Normal Color, Warm Results - Vital Signs Recent Vital Signs: Last Vital Signs Temp 98.3 F 04/28/18 11:40 Pulse 79 04/28/18 11:40 Resp 20 04/28/18 11:40 BP 121/75 04/28/18 11:40 Pulse Ox 99 04/28/18 11:40 - Labs Result Diagrams: 04/28/18 11:55 04/28/18 11:55 Labs: Laboratory Results - last 24 hr 04/28/18 04/28/18 11:55 11:55 WBC 6.8 RBC 3.59 L Hgb 11.2 L Hct 34.5 L MCV 96.0 H MCH 31.1 H MCHC 32.4 L RDW 14.8 H Plt Count 175 MPV 8.5 Neut % (Auto) 57.1 Lymph % (Auto) 26.4 [place] % (Auto) 7.8 Eos % (Auto) 7.5 H Baso % (Auto) 1.2 Neut # (Auto) 3.9 Lymph # (Auto) 1.8 [place] # (Auto) 0.5 Eos # (Auto) 0.5 Baso # (Auto) 0.1 Sodium 137 Potassium 5.0 Chloride 101 Carbon Dioxide 26 Anion Gap 15 BUN 14 Creatinine 0.9 Est GFR ( Amer) > 60 Est GFR (Non-Af Amer) > 60 Random Glucose 229 H Calcium 8.8 Total Bilirubin 0.4 AST 34 ALT 38 Alkaline Phosphatase 62 Troponin I 0.3880 H* Total Protein 6.8 Albumin 3.8 Globulin 3.0 Albumin/Globulin Ratio 1.3 Assessment & Plan - Assessment and Plan (Free Text) Assessment: 72 y/o male with PMHx of NH, CAD (s/p 3 2015), HTN ,DM, active smoker, COPD and Chronic anemia. The patient started c/o sharp substernal moderate 5/10 chest pain today of brief duration, with no radiation at 8:40 AM and BRICK WASHER was called on him by TCU nurse, troponin I were ordered and found elevated again and patient was transferred to ED for evaluation, and was decided to admit him with NSTEMI to telemetry unit. At this time patient is hemodinamically stable and denies chest pain. Plan: NSTEMI -Midsternal chest pain: stable, chest pain free at this time -Monitor chest pain - Trop x1 positive 0.59674, tropo 2nd 0.3880 - EKG NSR, Left ant fascicular block, inferior NH age undetermined, ST, T wave abnormality - Consult Dr House cardiology reccommendations appreciated -Therapeutic Lovenox 60 mg SC Q 12h - ASA 81 QD - Plavix 75 PO QD CAD -Isosorbide [place] 30 PO QD Systolic CHF - Last echo in 12/2017 shows EF =20 with LVH - c/w Lisinopril - c/w Metoprolol - c/w Digoxin DM -chronic - Lispro Insulin sliding scale according to accucheck, low scale - Hypoglycemia protocol - Last HgA1c- 7.4 on 03/24/18 COPD -c/w Spiriva 18 QD -Ox 2 L nc PRN BPH -Flomax 0.4 mg QD Anxiety/depression -zoloft 50 PO QD DVT prophylaxis -Therapeutic Lovenox 60mg Q12h Code Status -Full code <Lana Corona - Last Filed: 04/29/18 16:00> Results - Vital Signs Recent Vital Signs: Last Vital Signs Temp 98.3 F 04/29/18 12:25 Pulse 53 L 04/29/18 12:25 Resp 20 04/29/18 12:25 BP 101/52 L 04/29/18 12:25 Pulse Ox 99 04/29/18 12:25 - Labs Result Diagrams: 04/29/18 04:20 04/29/18 04:20 Labs: Laboratory Results - last 24 hr 04/28/18 04/28/18 04/28/18 16:29 17:02 21:43 WBC RBC Hgb Hct MCV MCH MCHC RDW Plt Count Sodium Potassium Chloride Carbon Dioxide Anion Gap BUN Creatinine Est GFR ( Amer) Est GFR (Non-Af Amer) POC Glucose (mg/dL) 182 H 147 H Random Glucose Calcium Total Bilirubin AST ALT Alkaline Phosphatase Troponin I 0.3670 H* Total Protein Albumin Globulin Albumin/Globulin Ratio 04/29/18 04/29/18 04/29/18 04:20 04:20 05:29 WBC 6.6 RBC 3.70 L Hgb 11.5 L Hct 35.9 MCV 97.0 H MCH 31.1 H MCHC 32.1 L RDW 15.0 H Plt Count 199 Sodium 139 Potassium 4.5 Chloride 102 Carbon Dioxide 29 Anion Gap 13 BUN 17 Creatinine 1.1 Est GFR ( Amer) > 60 Est GFR (Non-Af Amer) > 60 POC Glucose (mg/dL) 188 H Random Glucose 157 H Calcium 8.8 Total Bilirubin 0.3 AST 26 ALT 35 Alkaline Phosphatase 66 Troponin I Total Protein 6.8 Albumin 3.9 Globulin 3.0 Albumin/Globulin Ratio 1.3 04/29/18 11:03 WBC RBC Hgb Hct MCV MCH MCHC RDW Plt Count Sodium Potassium Chloride Carbon Dioxide Anion Gap BUN Creatinine Est GFR ( Amer) Est GFR (Non-Af Amer) POC Glucose (mg/dL) 132 H Random Glucose Calcium Total Bilirubin AST ALT Alkaline Phosphatase Troponin I Total Protein Albumin Globulin Albumin/Globulin Ratio Attending/Attestation - Attestation I have personally seen and examined this patient.: Yes I have fully participated in the care of the patient.: Yes I have reviewed all pertinent clinical information: Yes Notes (Text): 04/29/18 16:00 Seen examined and discussed with resident. Agree with findings and plan as above.
--- NOTE | 2018-04-28 14:52 | CARD ---
APPROVED REPORT Date of service: 04/28/2018 EKG Measurement Heart [id number] <Conclusion> Normal sinus rhythm Left anterior fascicular block Inferior infarct, age undetermined ST & T wave abnormality, consider anterolateral ischemia Abnormal ECG
[2018-04-28] MEDS: Enoxaparin 60 mg Syringe SC SCH ×2 (16:26→20:34)
[2018-04-28] MEDS ORDERED: Glucagon Recombinant 1 mg Inj IM PRN (17:12)
[2018-04-28] MEDS ORDERED: Dextrose 50% SYRINGE Inj (50 ml) IV PRN (17:12)
[2018-04-28] MEDS ORDERED: Enoxaparin 60 mg Syringe SC SCH ×2 (21:00)
[2018-04-28] MEDS: Insulin Lispro (humaLOG) 100 Units/ml Inj SC SCH (22:19)
[2018-04-29 05:36] LABS: HEMOGLOBIN 11.5 g/dL (12.0-18.0); MEAN CORPUSCULAR HEMOGLOBIN 31.1 pg (27.0-31.0); MEAN CORPUSCULAR HGB CONC 32.1 g/dL (33.0-37.0); RBC 3.7 Mil/uL (4.40-5.90); WHITE BLOOD COUNT 6.6 K/uL (4.8-10.8)
[2018-04-29 05:49] LABS: ALB/GLOB RATIO 1.3 (1.0-2.1); ALBUMIN 3.9 g/dL (3.5-5.0); ALT/SGPT 35 U/L (21-72); AST/SGOT 26 U/L (17-59); BLOOD UREA NITROGEN 17 mg/dl (9-20); CALCIUM 8.8 mg/dL (8.4-10.2); GFR NON-AFRICAN AMERICAN > 60
[2018-04-29] MEDS: Insulin Lispro (humaLOG) 100 Units/ml Inj SC SCH ×4 (07:01→23:10)
--- NOTE | 2018-04-29 08:12 | CP.PCM.PN ---
<Deangelo Day - Last Filed: 04/29/18 11:12> Subjective - Date & Time of Evaluation Date of Evaluation: 04/29/18 Time of Evaluation: 07:52 - Subjective Subjective: Patient seen today resting comfortable in bed, NAD, patient is using Ox 2L NC in bed and c/o some SOB when he gets OOB to go to the bathroom, he states he was not feeling SOB before when going to the bathroom. He denies HANSON, chest pain, back pain, abdominal pain, left arm pain, nausea, vomiting or SOB at the time of this encounter. Objective - Vital Signs/Intake and Output Vital Signs (last 24 hours): Temp Pulse Resp BP Pulse Ox 98.2 F 58 L 18 120/70 100 04/29/18 05:00 04/29/18 05:00 04/29/18 05:00 04/29/18 05:00 04/29/18 05:00 - Medications Medications: Current Medications Acetaminophen (Tylenol 325mg Tab) 650 mg PO Q6 PRN PRN Reason: Pain, moderate (4-7) Last Admin: 04/29/18 05:13 Dose: 650 mg Aspirin (Aspirin Chewable) 81 mg PO DAILY [facility] Last Admin: 04/28/18 16:25 Dose: Not Given Atorvastatin Calcium (Lipitor) 40 mg PO HS [facility] Last Admin: 04/28/18 21:09 Dose: 40 mg Clopidogrel Bisulfate (Plavix) 75 mg PO DAILY [facility] Dextrose (Dextrose 50% Inj) 0 ml IV STAT PRN; Protocol PRN Reason: Hypoglycemia Protocol Dextrose (Glutose 15) 0 gm PO ONCE PRN; Protocol PRN Reason: Hypoglycemia Protocol Digoxin (Digoxin) 0.125 mg PO QOTHERDAY [facility] Enoxaparin Sodium (Lovenox) 60 mg SC Q12 [facility]; Protocol Last Admin: 04/28/18 20:34 Dose: 60 mg Glucagon (Glucagen Diagnostic Kit) 0 mg IM STAT PRN; Protocol PRN Reason: Hypoglycemia Protocol Insulin Human Lispro (Humalog) 0 units SC ACCU-CHECK [facility]; Protocol Last Admin: 04/29/18 07:01 Dose: 1 unit Isosorbide Mononitrate (Imdur Er) 30 mg PO DAILY [facility] Lisinopril (Zestril) 10 mg PO DAILY [facility] Last Admin: 04/28/18 17:32 Dose: 10 mg Metoprolol Tartrate (Lopressor) 100 mg PO Q12 [facility] Last Admin: 04/28/18 20:33 Dose: 100 mg Morphine Sulfate (Morphine) 2 mg IVP Q6 PRN PRN Reason: Pain, severe (8-10) Nicotine (Nicoderm Cq) 1 patch TD DAILY [facility] Nitroglycerin (Nitrostat Sl Tab) 0.4 mg SL Q5MIN PRN PRN Reason: chest pain Ondansetron HCl (Zofran Inj) 4 mg IVP Q6 PRN PRN Reason: Nausea/Vomiting Sertraline HCl (Zoloft) 50 mg PO DAILY [facility] Tamsulosin HCl (Flomax) 0.4 mg PO DAILY [facility] Tiotropium [place] (Spiriva) 18 mcg INH DAILY [facility] - Labs Labs: 04/29/18 04:20 04/29/18 04:20 - Constitutional Appears: No Acute Distress - Head Exam Head Exam: ATRAUMATIC, NORMOCEPHALIC - Eye Exam Eye Exam: EOMI, PERRL - ENT Exam ENT Exam: Mucous Membranes Moist - Respiratory Exam Respiratory Exam: Clear to Ausculation Bilateral. absent: Wheezes - Cardiovascular Exam Cardiovascular Exam: RRR, +S1, +S2 - GI/Abdominal Exam GI & Abdominal Exam: Soft, Normal Bowel Sounds. absent: Tenderness - Extremities Exam Extremities Exam: absent: Pedal Edema - Neurological Exam Neurological Exam: Alert, Awake, Oriented x3 - Psychiatric Exam Psychiatric exam: Normal Affect - Skin Skin Exam: Normal Color, Warm Assessment and Plan - Assessment and Plan (Free Text) Assessment: 72 y/o male with PMHx of [place], CAD (s/p 3 2015), HTN ,DM, active smoker, COPD and Chronic anemia. The patient started c/o sharp substernal moderate 5/10 chest pain today of brief duration, with no radiation at 8:40 AM and ANIMAL TECHNICIAN was called on him by TCU nurse, troponin I were ordered and found elevated again and patient was transferred to ED for evaluation, and was decided to admit him with NSTEMI to telemetry unit. Plan: 1.NSTEMI -Midsternal chest pain: stable, chest pain free at this time -Monitor chest pain - Trop x1 positive 0.18251, tropo 2nd 0.3880, 3rd 0.3670 - EKG NSR, Left ant fascicular block, inferior [place] age undetermined, ST, T wave abnormality - Consult Dr House cardiology reccommendations appreciated - - Therapeutic Lovenox 60 mg SC Q 12h - ASA 81 QD - Plavix 75 PO QD 2.CAD -Isosorbide [place] 30 PO QD 3.Systolic CHF - Last echo in 12/2017 shows EF =20 with LVH - c/w Lisinopril - c/w Metoprolol - c/w Digoxin 4.DM -chronic - Lispro Insulin sliding scale according to accucheck low scale - Hypoglycemia protocol - Last HgA1c- 7.4 on 03/24/18 5.COPD -c/w Spiriva 18 QD -Ox 2 L nc PRN 6.BPH -Flomax 0.4 mg QD 7.Anxiety/depression -zoloft 50 PO QD DVT prophylaxis -Therapeutic Lovenox 60mg Q12h Code Status -Full code <Lana Corona - Last Filed: 04/29/18 16:07> Objective - Vital Signs/Intake and Output Vital Signs (last 24 hours): Temp Pulse Resp BP Pulse Ox 99.5 F 58 L 20 102/58 L 96 04/29/18 16:00 04/29/18 16:00 04/29/18 16:00 04/29/18 16:00 04/29/18 16:00 - Medications Medications: Current Medications Acetaminophen (Tylenol 325mg Tab) 650 mg PO Q6 PRN PRN Reason: Pain, moderate (4-7) Last Admin: 04/29/18 13:35 Dose: 650 mg Aspirin (Aspirin Chewable) 81 mg PO DAILY DAVID Last Admin: 04/29/18 09:15 Dose: 81 mg Atorvastatin Calcium (Lipitor) 80 mg PO HS DAVDI Dextrose (Dextrose 50% Inj) 0 ml IV STAT PRN; Protocol PRN Reason: Hypoglycemia Protocol Dextrose (Glutose 15) 0 gm PO ONCE PRN; Protocol PRN Reason: Hypoglycemia Protocol Digoxin (Digoxin) 0.125 mg PO QOTHERDAY DAVID Enoxaparin Sodium (Lovenox) 60 mg SC Q12 DAVID; Protocol Last Admin: 04/29/18 09:11 Dose: 60 mg Glucagon (Glucagen Diagnostic Kit) 0 mg IM STAT PRN; Protocol PRN Reason: Hypoglycemia Protocol Insulin Human Lispro (Humalog) 0 units SC ACCU-CHECK DAVID; Protocol Last Admin: 04/29/18 13:37 Dose: Not Given Isosorbide Mononitrate (Imdur) 60 mg PO DAILY [facility] Lisinopril (Zestril) 10 mg PO DAILY [facility] Last Admin: 04/29/18 09:13 Dose: 10 mg Metoprolol Tartrate (Lopressor) 100 mg PO Q12 [facility] Last Admin: 04/29/18 09:10 Dose: Not Given Morphine Sulfate (Morphine) 2 mg IVP Q6 PRN PRN Reason: Pain, severe (8-10) Nicotine (Nicoderm Cq) 1 patch TD DAILY [facility] Last Admin: 04/29/18 09:12 Dose: Not Given Nitroglycerin (Nitrostat Sl Tab) 0.4 mg SL Q5MIN PRN PRN Reason: chest pain Ondansetron HCl (Zofran Inj) 4 mg IVP Q6 PRN PRN Reason: Nausea/Vomiting Sertraline HCl (Zoloft) 50 mg PO DAILY [facility] Last Admin: 04/29/18 09:13 Dose: 50 mg Tamsulosin HCl (Flomax) 0.4 mg PO DAILY [facility] Last Admin: 04/29/18 09:15 Dose: 0.4 mg Ticagrelor (Brilinta) 90 mg PO BID@0900,2100 [facility] Tiotropium [place] (Spiriva) 18 mcg INH DAILY [facility] Last Admin: 04/29/18 09:12 Dose: 18 mcg - Labs Labs: 04/29/18 04:20 04/29/18 04:20 Attending/Attestation - Attestation I have personally seen and examined this patient.: Yes I have fully participated in the care of the patient.: Yes I have reviewed all pertinent clinical information, including history, physical exam and plan: Yes Notes (Text): 04/29/18 16:07 Seen examined and discussed with resident. Agree with findings and plan as above.
[2018-04-29] MEDS: Enoxaparin 60 mg Syringe SC SCH ×2 (09:11→21:24)
[2018-04-29] MEDS: Tiotropium 18 mcg Cap For Inhalation INH SCH (09:12)
--- NOTE | 2018-04-29 09:14 | CP.PCM.CON ---
History of Present Illness - History of Present Illness History of Present Illness: THE PATIENT IS A 72 YEAR OLD MALE WITH A HISTORY OF CAD WITH AN IWMI A FEW YEAR AGO WHEB HE PRESENTED TO [facility] ER WITH CHEST PAIN AND A CODE HEART WAS CALLED AND HE WENT TO [facility] AND HAD AN EMERGENCY CARDIAC CATH FOLLOWED [place] STENT INSERTIONS AND HAD A LVEF OF ~ 40%. HE HAS THREE NSTEMIS THIS YEAR AND REFUSED A CARDIAC CATH AND INSISTED ON JUST CONSERVATIVE MEDICAL TREATMENT AND A RECENT LVEF WAS ~ 10-15%. HE WAS JUST ADMITTED TO [facility] ON 04/20/18 FOR HIS THIRD NSTEMI AND REFUSED A CARDIAC CATH LAST WEEK. HE WAS SENT TO TCU AND INTIALLY AGREED TO A CARDIAC CATH YESTERDAY BUT AGAIN CHANGED HIS MIND. LATER IN THE MORNING HE HAD CHEST PAIN AGAIN AND BUMPED UP HIS TROPONIN LEVEL AND WAS SENT TO THE ER AND ADMITTED AGAIN TO [facility] AND I WAS CALLED TO SEE HIM. HE DENIES CHEST PAIN TODAY. Past Patient History - Infectious Disease Hx of Infectious Diseases: None - Tetanus Immunizations Tetanus Immunization: Unknown - Past Medical History & Family History Past Medical History?: Yes - Past Social History Smoking Status: Light Smoker < 10 Cigarettes Daily - CARDIAC Hx Cardia Arrhythmia: Yes Hx Congestive Heart Failure: Yes Hx Hypercholesterolemia: Yes Hx Hypertension: Yes - PULMONARY Hx Asthma: Yes Hx Bronchitis: No Hx Chronic Obstructive Pulmonary Disease (COPD): Yes Hx Emphysema: Yes Hx Pneumonia: Yes - NEUROLOGICAL Hx Multiple Sclerosis: Yes Hx Transient Ischemic Attacks (TIA): Yes - HEENT Hx HEENT Problems: No Hx Cataracts: Yes - RENAL Hx Chronic Kidney Disease: No - ENDOCRINE/METABOLIC Hx Endocrine Disorders: Yes Hx Diabetes Mellitus Type 2: Yes - HEMATOLOGICAL/ONCOLOGICAL Hx Anemia: Yes Hx Human Immunodeficiency Virus (HIV): No - INTEGUMENTARY Hx Dermatological Problems: No - MUSCULOSKELETAL/RHEUMATOLOGICAL Hx Arthritis: Yes Hx Fractures: Yes (bilateral feet) - GASTROINTESTINAL Hx Gastrointestinal Disorders: No - GENITOURINARY/GYNECOLOGICAL Hx Genitourinary Disorders: Yes - PSYCHIATRIC Hx Anxiety: Yes Hx Depression: Yes Hx Substance Use: No - SURGICAL HISTORY Hx Cholecystectomy: Yes Hx Coronary Artery Bypass Graft: No Hx Coronary Stent: Yes (x3) - ANESTHESIA Hx Anesthesia: Yes Hx Anesthesia Reactions: No Hx Malignant Hyperthermia: No Meds Allergies/Adverse Reactions: Allergies Allergy/AdvReac Type Severity Reaction Status Date / Time codeine Allergy Intermediate HEADACHE Verified 04/24/18 14:54 ampicillin Allergy RASH Verified 04/20/18 14:24 - Medications Medications: Current Medications Acetaminophen (Tylenol 325mg Tab) 650 mg PO Q6 PRN PRN Reason: Pain, moderate (4-7) Last Admin: 04/29/18 05:13 Dose: 650 mg Aspirin (Aspirin Chewable) 81 mg PO DAILY [facility] Last Admin: 04/28/18 16:25 Dose: Not Given Atorvastatin Calcium (Lipitor) 40 mg PO [facility] Last Admin: 04/28/18 21:09 Dose: 40 mg Clopidogrel Bisulfate (Plavix) 75 mg PO DAILY [facility] Dextrose (Dextrose 50% Inj) 0 ml IV STAT PRN; Protocol PRN Reason: Hypoglycemia Protocol Dextrose (Glutose 15) 0 gm PO ONCE PRN; Protocol PRN Reason: Hypoglycemia Protocol Digoxin (Digoxin) 0.125 mg PO QOTHERDAY [facility] Enoxaparin Sodium (Lovenox) 60 mg SC Q12 [facility]; Protocol Last Admin: 04/28/18 20:34 Dose: 60 mg Glucagon (Glucagen Diagnostic Kit) 0 mg IM STAT PRN; Protocol PRN Reason: Hypoglycemia Protocol Insulin Human Lispro (Humalog) 0 units SC ACCU-CHECK [facility]; Protocol Last Admin: 04/29/18 07:01 Dose: 1 unit Isosorbide Mononitrate (Imdur Er) 30 mg PO DAILY [facility] Lisinopril (Zestril) 10 mg PO DAILY [facility] Last Admin: 04/28/18 17:32 Dose: 10 mg Metoprolol Tartrate (Lopressor) 100 mg PO Q12 [facility] Last Admin: 04/28/18 20:33 Dose: 100 mg Morphine Sulfate (Morphine) 2 mg IVP Q6 PRN PRN Reason: Pain, severe (8-10) Nicotine (Nicoderm Cq) 1 patch TD DAILY [facility] Nitroglycerin (Nitrostat Sl Tab) 0.4 mg SL Q5MIN PRN PRN Reason: chest pain Ondansetron HCl (Zofran Inj) 4 mg IVP Q6 PRN PRN Reason: Nausea/Vomiting Sertraline HCl (Zoloft) 50 mg PO DAILY [facility] Tamsulosin HCl (Flomax) 0.4 mg PO DAILY [facility] Tiotropium [place] (Spiriva) 18 mcg INH DAILY [facility] Physical Exam - Respiratory Exam Respiratory Exam: Clear to Auscultation Bilateral - Cardiovascular Exam Cardiovascular Exam: REGULAR RHYTHM, +S1, +S2 - Extremities Exam Additional comments: NO LE EDEMA - Additional Findings Additional findings: EKG NSR, LAHB, NSSTT CHANGES TROPONINS ELEVATED AT O.38 AND 0.36 Results - Vital Signs Recent Vital Signs: Last Vital Signs Temp 98.4 F 04/29/18 08:26 Pulse 53 L 04/29/18 08:26 Resp 20 04/29/18 08:26 BP 129/75 04/29/18 08:26 Pulse Ox 99 04/29/18 08:26 - Labs Result Diagrams: 04/29/18 04:20 04/29/18 04:20 Labs: Laboratory Results - last 24 hr 04/28/18 04/28/18 04/28/18 11:55 11:55 16:29 WBC 6.8 RBC 3.59 L Hgb 11.2 L Hct 34.5 L MCV 96.0 H MCH 31.1 H MCHC 32.4 L RDW 14.8 H Plt Count 175 MPV 8.5 Neut % (Auto) 57.1 Lymph % (Auto) 26.4 [place] % (Auto) 7.8 Eos % (Auto) 7.5 H Baso % (Auto) 1.2 Neut # (Auto) 3.9 Lymph # (Auto) 1.8 [place] # (Auto) 0.5 Eos # (Auto) 0.5 Baso # (Auto) 0.1 Sodium 137 Potassium 5.0 Chloride 101 Carbon Dioxide 26 Anion Gap 15 BUN 14 Creatinine 0.9 Est GFR ( Amer) > 60 Est GFR (Non-Af Amer) > 60 POC Glucose (mg/dL) 182 H Random Glucose 229 H Calcium 8.8 Total Bilirubin 0.4 AST 34 ALT 38 Alkaline Phosphatase 62 Troponin I 0.3880 H* Total Protein 6.8 Albumin 3.8 Globulin 3.0 Albumin/Globulin Ratio 1.3 04/28/18 04/28/18 04/29/18 17:02 21:43 04:20 WBC 6.6 RBC 3.70 L Hgb 11.5 L Hct 35.9 MCV 97.0 H MCH 31.1 H MCHC 32.1 L RDW 15.0 H Plt Count 199 MPV Neut % (Auto) Lymph % (Auto) [place] % (Auto) Eos % (Auto) Baso % (Auto) Neut # (Auto) Lymph # (Auto) [place] # (Auto) Eos # (Auto) Baso # (Auto) Sodium Potassium Chloride Carbon Dioxide Anion Gap BUN Creatinine Est GFR ( Amer) Est GFR (Non-Af Amer) POC Glucose (mg/dL) 147 H Random Glucose Calcium Total Bilirubin AST ALT Alkaline Phosphatase Troponin I 0.3670 H* Total Protein Albumin Globulin Albumin/Globulin Ratio 04/29/18 04/29/18 04:20 05:29 WBC RBC Hgb Hct MCV MCH MCHC RDW Plt Count MPV Neut % (Auto) Lymph % (Auto) [place] % (Auto) Eos % (Auto) Baso % (Auto) Neut # (Auto) Lymph # (Auto) [place] # (Auto) Eos # (Auto) Baso # (Auto) Sodium 139 Potassium 4.5 Chloride 102 Carbon Dioxide 29 Anion Gap 13 BUN 17 Creatinine 1.1 Est GFR ( Amer) > 60 Est GFR (Non-Af Amer) > 60 POC Glucose (mg/dL) 188 H Random Glucose 157 H Calcium 8.8 Total Bilirubin 0.3 AST 26 ALT 35 Alkaline Phosphatase 66 Troponin I Total Protein 6.8 Albumin 3.9 Globulin 3.0 Albumin/Globulin Ratio 1.3 Assessment & Plan - Assessment and Plan (Free Text) Assessment: CAD WITH OLD MT WITH STENT INSERTIONS, NSTEMIS AND NOW WITH NEW NSTEMI YESTERDAY HYPERTENSION HYPERLIPIDEMIA MS OLD TIA/INFARCT Plan: THE PATIENT WAS ADMITTED TO [facility] ON TELEMETRY O2, ASPIRIN, THERAPEUTIC LOVENOX, METOPROLOL, LOSARTAN, AND LISINOPRIL PLAVIX GIVEN TODAY AND WILL START BRILINTA IN AM TOMORROW IMDUR INCREASED TO 60 MGS DAILY AND ATORVASTATIN INCREASED TO 80 MGS DAILY SERIAL EKGS AND TROPONINS PATIENT AGAIN TOLD THAT HE SHOULD HAVE A CARDIAC CATH FOR POSSIBLE CORONARY REVASCULARIZATION AND HE STILL REFUSES AND UNDERSTANDS THAT HE MAY A RESULT OF NOT HAVING INVASIVE CARDIAC TREATMENT
--- NOTE | 2018-04-29 13:47 | PQF ---
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 Please document the acuity: Such as: Acuity: -- Acute -- Chronic -- Acute on chronic -- Other, please specify H and P: Systolic CHF - Last echo in 12/2017 shows EF =20 with LVH - c/w Lisinopril - c/w Metoprol ol - c/w Digoxin The patient's Clinical Indicators include: - Query created by: Elmira Mendieta on 04/29/2018 11:29 AM Electronically signed by: Lana Corona MD 04/29/2018 1:44 PM
--- NOTE | 2018-04-29 17:58 | CARD ---
APPROVED REPORT Date of service: 04/29/2018 EKG Measurement Heart [id number] <Conclusion> Sinus bradycardia Left anterior fascicular block Left ventricular hypertrophy with repolarization abnormality T wave changes, consider anterolateral ischemia Abnormal ECG
[2018-04-30] MEDS ORDERED: Digoxin 125 mcg (0.125 mg) Tab PO SCH (09:00)
[2018-04-30] MEDS: Insulin Lispro (humaLOG) 100 Units/ml Inj SC SCH ×4 (09:33→22:04)
[2018-04-30] MEDS: Tiotropium 18 mcg Cap For Inhalation INH SCH (09:34)
[2018-04-30] MEDS: Enoxaparin 60 mg Syringe SC SCH (09:35)
[2018-04-30 09:37] VITALS: PULSE 65
--- NOTE | 2018-04-30 09:53 | CP.PCM.PN ---
Subjective - Date & Time of Evaluation Date of Evaluation: 04/30/18 Time of Evaluation: 09:15 - Subjective Subjective: NO CHEST PAIN TODAY Objective - Vital Signs/Intake and Output Vital Signs (last 24 hours): Temp Pulse Resp BP Pulse Ox 98.3 F 65 20 114/68 100 04/30/18 05:13 04/30/18 09:35 04/30/18 05:13 04/30/18 09:35 04/30/18 05:13 - Medications Medications: Current Medications Acetaminophen (Tylenol 325mg Tab) 650 mg PO Q6 PRN PRN Reason: Pain, moderate (4-7) Last Admin: 04/30/18 09:47 Dose: 650 mg Aspirin (Aspirin Chewable) 81 mg PO DAILY [facility] Last Admin: 04/30/18 09:36 Dose: 81 mg Atorvastatin Calcium (Lipitor) 80 mg PO HS [facility] Last Admin: 04/30/18 09:35 Dose: 80 mg Dextrose (Dextrose 50% Inj) 0 ml IV STAT PRN; Protocol PRN Reason: Hypoglycemia Protocol Dextrose (Glutose 15) 0 gm PO ONCE PRN; Protocol PRN Reason: Hypoglycemia Protocol Digoxin (Digoxin) 0.125 mg PO QOTHERDAY [facility] Last Admin: 04/30/18 09:36 Dose: 0.125 mg Enoxaparin Sodium (Lovenox) 60 mg SC Q12 [facility]; Protocol Last Admin: 04/30/18 09:35 Dose: 60 mg Glucagon (Glucagen Diagnostic Kit) 0 mg IM STAT PRN; Protocol PRN Reason: Hypoglycemia Protocol Insulin Human Lispro (Humalog) 0 units SC ACCU-CHECK [facility]; Protocol Last Admin: 04/30/18 09:33 Dose: Not Given Isosorbide Mononitrate (Imdur) 60 mg PO DAILY [facility] Last Admin: 04/30/18 09:34 Dose: 60 mg Lisinopril (Zestril) 10 mg PO DAILY [facility] Last Admin: 04/30/18 09:34 Dose: 10 mg Metoprolol Tartrate (Lopressor) 100 mg PO Q12 [facility] Last Admin: 04/30/18 09:35 Dose: 100 mg Morphine Sulfate (Morphine) 2 mg IVP Q6 PRN PRN Reason: Pain, severe (8-10) Nicotine (Nicoderm Cq) 1 patch TD DAILY [facility] Last Admin: 04/30/18 09:34 Dose: Not Given Nitroglycerin (Nitrostat Sl Tab) 0.4 mg SL Q5MIN PRN PRN Reason: chest pain Ondansetron HCl (Zofran Inj) 4 mg IVP Q6 PRN PRN Reason: Nausea/Vomiting Sertraline HCl (Zoloft) 50 mg PO DAILY [facility] Last Admin: 04/30/18 09:35 Dose: 50 mg Tamsulosin HCl (Flomax) 0.4 mg PO DAILY [facility] Last Admin: 04/30/18 09:36 Dose: 0.4 mg Ticagrelor (Brilinta) 90 mg PO BID@0900,2100 [facility] Tiotropium [place] (Spiriva) 18 mcg INH DAILY [facility] Last Admin: 04/30/18 09:34 Dose: 18 mcg - Labs Labs: 04/29/18 04:20 04/29/18 04:20 - Respiratory Exam Respiratory Exam: Clear to Ausculation Bilateral - Cardiovascular Exam Cardiovascular Exam: REGULAR RHYTHM, +S1, +S2 - Extremities Exam Additional comments: NO EDEMA OF LE - Additional Findings Additional findings: [employer] O[employer] NSR Assessment and Plan - Assessment and Plan (Free Text) Assessment: CAD HYPERTENSION HYPERLIPIDEMIA MS Plan: FOR DISCHARGE TODAY CONTINUE PRESENT TX OV WITH ME IN ABOUT ONE WEEK
--- NOTE | 2018-04-30 11:22 | CP.PCM.DIS ---
Provider - Provider Date of Admission: 04/28/18 11:32 Attending physician: Lana Corona DO Time Spent in preparation of Discharge (in minutes): 33 Diagnosis - Discharge Diagnosis (1) Non-ST elevation (NSTEMI) myocardial infarction Status: Acute (2) Acute chest pain Status: Acute (3) COPD (chronic obstructive pulmonary disease) Status: Chronic Hospital Course - Lab Results Lab Results: Most Recent Lab Values WBC 6.6 K/uL (4.8-10.8) 04/29/18 04:20 RBC 3.70 Mil/uL (4.40-5.90) L 04/29/18 04:20 Hgb 11.5 g/dL (12.0-18.0) L 04/29/18 04:20 Hct 35.9 % (35.0-51.0) 04/29/18 04:20 MCV 97.0 fl (80.0-94.0) H 04/29/18 04:20 MCH 31.1 pg (27.0-31.0) H 04/29/18 04:20 MCHC 32.1 g/dL (33.0-37.0) L 04/29/18 04:20 RDW 15.0 % (11.5-14.5) H 04/29/18 04:20 Plt Count 199 K/uL (130-400) 04/29/18 04:20 MPV 8.5 fl (7.2-11.7) 04/28/18 11:55 Neut % (Auto) 57.1 % (50.0-75.0) 04/28/18 11:55 Lymph % (Auto) 26.4 % (20.0-40.0) 04/28/18 11:55 [place] % (Auto) 7.8 % (0.0-10.0) 04/28/18 11:55 Eos % (Auto) 7.5 % (0.0-4.0) H 04/28/18 11:55 Baso % (Auto) 1.2 % (0.0-2.0) 04/28/18 11:55 Neut # (Auto) 3.9 K/uL (1.8-7.0) 04/28/18 11:55 Lymph # (Auto) 1.8 K/uL (1.0-4.3) 04/28/18 11:55 [place] # (Auto) 0.5 K/uL (0.0-0.8) 04/28/18 11:55 Eos # (Auto) 0.5 K/uL (0.0-0.7) 04/28/18 11:55 Baso # (Auto) 0.1 K/uL (0.0-0.2) 04/28/18 11:55 Sodium 139 mmol/l (132-148) 04/29/18 04:20 Potassium 4.5 MMOL/L (3.6-5.0) 04/29/18 04:20 Chloride 102 mmol/L (98-107) 04/29/18 04:20 Carbon Dioxide 29 mmol/L (22-30) 04/29/18 04:20 Anion Gap 13 (10-20) 04/29/18 04:20 BUN 17 mg/dl (9-20) 04/29/18 04:20 Creatinine 1.1 mg/dl (0.8-1.5) 04/29/18 04:20 Est GFR ( Amer) > 60 04/29/18 04:20 Est GFR (Non-Af Amer) > 60 04/29/18 04:20 POC Glucose (mg/dL) 115 mg/dL (65-110) H 04/30/18 05:44 Random Glucose 157 mg/dL (75-110) H 04/29/18 04:20 Calcium 8.8 mg/dL (8.4-10.2) 04/29/18 04:20 Total Bilirubin 0.3 mg/dl (0.2-1.3) 04/29/18 04:20 AST 26 U/L (17-59) 04/29/18 04:20 ALT 35 U/L (21-72) 04/29/18 04:20 Alkaline Phosphatase 66 U/L (38-126) 04/29/18 04:20 Troponin I 0.3670 ng/mL (0.00-0.120) H* 04/28/18 17:02 Total Protein 6.8 G/DL (6.3-8.2) 04/29/18 04:20 Albumin 3.9 g/dL (3.5-5.0) 04/29/18 04:20 Globulin 3.0 gm/dL (2.2-3.9) 04/29/18 04:20 Albumin/Globulin Ratio 1.3 (1.0-2.1) 04/29/18 04:20 - Hospital Course Hospital Course: 72 y/o male with PMHx of CO, CAD (s/p 3 stents 2015), HTN ,DM, active smoker, COPD and Chronic anemia. Patient has history of NSTEMI with elevated troponin and EKG changes on 04/20 admitted to telemetry, he was evaluated by food production machine operator Dr House and was planned for cardiac cath that patient refused twice during his previous admission last week, he was then transferred to TCU stable and chest pain free on 04/24/18 for PT treatment for ADLs, while in TCU patient had recurrence of chest pain with elevated troponin I and was readmitted to [facility] with diagnosis of NSTEMI on 04/28/18. Patient was reevaluated by cardiologis Dr House, patient requires a cardiac cath procedure and he has been refusing several times, he has been explained by food production machine operator and attending MD the risks of not having the procedure done including , patient understands and continues refusing. Patient at this time is hemdinamically stable, denies chest pain. Patient is stable to be discharge home and continue f/u as outpatient with food production machine operator Dr House within a week. After this hospital stay I have also evaluated Mr Blakely on 04/30/18, and due to patient's advanced CAD, COPD, he requires the head of the bed to be elevated more than 30 degrees most of the time. Furthermore patient requires position of the body not feasible with an ordinary bed to alleviate SOB due COPD. Discharge Exam - Head Exam Head Exam: ATRAUMATIC, NORMOCEPHALIC - Eye Exam Eye Exam: EOMI - ENT Exam ENT Exam: Mucous Membranes Moist - Respiratory Exam Respiratory Exam: Clear to PA & Lateral. absent: Wheezes - Cardiovascular Exam Cardiovascular Exam: RRR, +S1, +S2 - Neurological Exam Neurological exam: Alert, Oriented x3 - Psychiatric Exam Psychiatric exam: Normal Affect, Normal Mood - Skin Skin Exam: Normal Color, Warm Discharge Plan - Discharge Medications Prescriptions: Aspirin [Ecotrin] 81 mg PO DAILY #100 tabec Atorvastatin [Lipitor] 80 mg PO HS #30 tab Clopidogrel [Plavix] 75 mg PO DAILY #30 tab Losartan [Cozaar] 25 mg PO DAILY #30 tab Metoprolol Succinate XL [Toprol XL] 25 ng PO DAILY #30 tab - Follow Up Plan Condition: FAIR Disposition: HOME/ ROUTINE Instructions: Heart Attack (DC), Chest Pain (DC) Additional Instructions: Follow up with your PMD within a week. Follow up with your food production machine operator within a week or as recommended by your food production machine operator Dr House. Referrals: Maximo House MD [Family Provider] -
[2018-05-01] MEDS: Insulin Lispro (humaLOG) 100 Units/ml Inj SC SCH ×2 (07:09→12:42)
[2018-05-01] MEDS: Tiotropium 18 mcg Cap For Inhalation INH SCH (08:59)
--- NOTE | 2018-05-01 09:28 | CP.PCM.PN ---
Subjective - Date & Time of Evaluation Date of Evaluation: 05/01/18 Time of Evaluation: 09:10 - Subjective Subjective: NO CHEST PAIN BREATHING A LITTLE BETTER THIS AM Objective - Vital Signs/Intake and Output Vital Signs (last 24 hours): Temp Pulse Resp BP Pulse Ox 98.8 F 56 L 18 131/80 96 05/01/18 04:32 05/01/18 09:07 05/01/18 04:32 05/01/18 09:07 05/01/18 04:32 - Medications Medications: Current Medications Acetaminophen (Tylenol 325mg Tab) 650 mg PO Q6 PRN PRN Reason: Pain, moderate (4-7) Last Admin: 05/01/18 09:08 Dose: 650 mg Aspirin (Aspirin Chewable) 81 mg PO DAILY [facility] Last Admin: 05/01/18 08:56 Dose: 81 mg Atorvastatin Calcium (Lipitor) 80 mg PO HS [facility] Last Admin: 05/01/18 07:05 Dose: 80 mg Dextrose (Dextrose 50% Inj) 0 ml IV STAT PRN; Protocol PRN Reason: Hypoglycemia Protocol Dextrose (Glutose 15) 0 gm PO ONCE PRN; Protocol PRN Reason: Hypoglycemia Protocol Digoxin (Digoxin) 0.125 mg PO QOTHERDAY [facility] Last Admin: 04/30/18 09:36 Dose: 0.125 mg Glucagon (Glucagen Diagnostic Kit) 0 mg IM STAT PRN; Protocol PRN Reason: Hypoglycemia Protocol Insulin Human Lispro (Humalog) 0 units SC ACCU-CHECK [facility]; Protocol Last Admin: 05/01/18 07:09 Dose: 1 unit Isosorbide Mononitrate (Imdur) 60 mg PO DAILY [facility] Last Admin: 05/01/18 08:57 Dose: 60 mg Lisinopril (Zestril) 10 mg PO DAILY [facility] Last Admin: 05/01/18 09:07 Dose: 10 mg Metoprolol Tartrate (Lopressor) 100 mg PO Q12 [facility] Last Admin: 05/01/18 08:58 Dose: Not Given Nicotine (Nicoderm Cq) 1 patch TD DAILY [facility] Last Admin: 05/01/18 08:59 Dose: Not Given Nitroglycerin (Nitrostat Sl Tab) 0.4 mg SL Q5MIN PRN PRN Reason: chest pain Ondansetron HCl (Zofran Inj) 4 mg IVP Q6 PRN PRN Reason: Nausea/Vomiting Sertraline HCl (Zoloft) 50 mg PO DAILY [facility] Last Admin: 05/01/18 09:01 Dose: 50 mg Tamsulosin HCl (Flomax) 0.4 mg PO DAILY [facility] Last Admin: 05/01/18 08:57 Dose: 0.4 mg Ticagrelor (Brilinta) 90 mg PO BID@0900,2100 [facility] Last Admin: 05/01/18 08:56 Dose: 90 mg Tiotropium [place] (Spiriva) 18 mcg INH DAILY [facility] Last Admin: 05/01/18 08:59 Dose: 18 mcg - Labs Labs: 04/29/18 04:20 04/29/18 04:20 - Respiratory Exam Respiratory Exam: Clear to Ausculation Bilateral - Cardiovascular Exam Cardiovascular Exam: REGULAR RHYTHM, +S1, +S2 - Extremities Exam Additional comments: NO SIGNIFICANT LE EDEMA - Additional Findings 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
[2018-05-01 10:48] VITALS: O2SAT 100
[2018-05-01 14:16] VITALS: BP 154/85; PULSE 69; RESP 20; TEMP 97.4
== END 2018-05-01 15:45 | DRG 281 ==
LOC: H.ER 11:14 → H.ERHOLD 11:32 → H.TEL 13:43
PROVIDERS: ADMIT Student in an Organized Health Care Education/Training Program; ATTEND Student in an Organized Health Care Education/Training Program
DX: I21.4 Non-ST elevation (NSTEMI) myocardial infarction (principal); I50.22 Chronic systolic (congestive) heart failure; I22.2 Subsequent non-ST elevation (NSTEMI) myocardial infarction; G35 Multiple sclerosis; I11.0 Hypertensive heart disease with heart failure; I25.10 Atherosclerotic heart disease of native coronary artery without angina pectoris; Z95.5 Presence of coronary angioplasty implant and graft; Z86.73 Personal history of transient ischemic attack (TIA), and cerebral infarction without residual deficits; J43.9 Emphysema, unspecified; Z88.6 Allergy status to analgesic agent; Z88.0 Allergy status to penicillin; I25.2 Old myocardial infarction; F41.9 Anxiety disorder, unspecified; F32.9 Major depressive disorder, single episode, unspecified; F17.210 Nicotine dependence, cigarettes, uncomplicated; E11.9 Type 2 diabetes mellitus without complications; E78.00 Pure hypercholesterolemia, unspecified; E78.5 Hyperlipidemia, unspecified; I50.9 Heart failure, unspecified; Z79.82 Long term (current) use of aspirin; D64.9 Anemia, unspecified; Z79.02 Long term (current) use of antithrombotics/antiplatelets; Z53.20 Procedure and treatment not carried out because of patient's decision for unspecified reasons

== ENCOUNTER 2018-05-16 05:56 | Observation (INO) | payer MEDICARE ==
--- NOTE | 2018-05-16 06:35 | ED PDOC ---
HPI: Chest Pain Time Seen by Provider: 05/16/18 06:09 Chief Complaint (Nursing): Chest Pain Chief Complaint (Provider): Chest pain History Per: Patient History/Exam Limitations: no limitations Onset/Duration Of Symptoms: Hrs Current Symptoms Are (Timing): Still Present Quality: "Pain" Nitro Therapy Administered: 3, Per EMS, Complete Relief Additional History Per: Shelter Additional Complaint(s): 72yo male with history of COPD, hypertension, CAD, CHF, high cholesterol, NSTEMI, presents to ER with chest pain since 2 am today. Patient states he was sleeping at onset of symptom and reports associated shortness of breath. Per EMS, patient received 3 NTG treatments and a Tramadol at 4am; patient states the chest pain is now minimal. Otherwise, no fever, chills, cough, vomiting, sweats, and other medical complaints. PMD: Mike Farah I Past Medical History Reviewed: Historical Data, Nursing Documentation, Vital Signs Vital Signs: Last Vital Signs Temp 98.2 F 05/16/18 06:02 Pulse 77 05/16/18 06:02 Resp 16 05/16/18 06:02 BP 139/80 05/16/18 06:02 Pulse Ox 100 05/16/18 06:02 - Medical History PMH: Anemia, Anxiety, Arthritis, Asthma, CAD, Cardia Arrhythmia, CHF, COPD, CVA, Depression, Diabetes, Emphysema, Fractures (bilateral feet), HTN, Hypercholesterolemia, Hyperlipidemia, Multiple Sclerosis, Pneumonia, TIA Denies: Bronchitis, HIV, Chronic Kidney Disease - Surgical History Surgical History: Cholecystectomy, Coronary Stent (x3) Denies: CABG - Family History Family History: States: Unknown Family Hx, Diabetes - Home Medications Home Medications: Ambulatory Orders Medication Instructions Recorded Sertraline [Zoloft] 50 mg PO DAILY #30 tab 09/18/17 Tamsulosin [Flomax] 0.4 mg PO DAILY #30 cap 09/18/17 Nitroglycerin [Nitrostat SL Tab] 0.4 mg SL Q5MIN PRN 04/24/18 Acetaminophen [Tylenol 325mg tab] 650 mg PO Q4H PRN 04/28/18 Aspirin [Ecotrin] 81 mg PO DAILY #100 tabec 04/30/18 Atorvastatin [Lipitor] 80 mg PO HS #30 tab 04/30/18 Acetaminophen [Tylenol 325mg tab] 650 mg PO Q4H PRN 05/16/18 Digoxin 0.125 mg PO DAILY 05/16/18 Insulin Lispro [humALOG] 05/16/18 Insulin Lispro [humALOG] 05/16/18 Isosorbide Mononitrate ER [Imdur 60 mg PO DAILY 05/16/18 ER] Lactulose 20 gm PO DAILY PRN 05/16/18 Lisinopril [Zestril] 10 mg PO DAILY 05/16/18 Melatonin [Melatin] 3 mg PO HS 05/16/18 Metoprolol Tartrate [Lopressor] 100 mg PO Q12 05/16/18 Mupirocin 2% Oint UD [Bactroban 1 applic EXT HS 05/16/18 Ointment] Mupirocin 2% Oint UD [Bactroban 1 applic EXT HS 05/16/18 Ointment] Ondansetron HCl [Zofran] 4 mg PO Q6 PRN 05/16/18 Ticagrelor [Brilinta] 90 mg PO Q12 05/16/18 traMADol [Ultram] 50 mg PO Q8H PRN 05/16/18 - Allergies Allergies/Adverse Reactions: Allergies Allergy/AdvReac Type Severity Reaction Status Date / Time codeine Allergy Intermediate HEADACHE Verified 04/24/18 14:54 ampicillin Allergy RASH Verified 04/20/18 14:24 Review of Systems ROS Statement: Except As Marked, All Systems Reviewed And Found Negative (as per HPI) Constitutional: Negative for: Fever, Chills, Sweats Cardiovascular: Positive for: Chest Pain (now minimal) Respiratory: Positive for: Shortness of Breath Gastrointestinal: Negative for: Nausea, Vomiting Physical Exam - Reviewed Nursing Documentation Reviewed: Yes Vital Signs Reviewed: Yes - Physical Exam Appears: Positive for: Well (very well appearing), Non-toxic, No Acute Distress Head Exam: Positive for: ATRAUMATIC, NORMAL INSPECTION, NORMOCEPHALIC Skin: Positive for: Normal Color Eye Exam: Positive for: Normal appearance, EOMI, PERRL Neck: Positive for: Normal, Supple Cardiovascular/Chest: Positive for: Regular Rate, Rhythm, Chest Non Tender Respiratory: Positive for: Normal Breath Sounds. Negative for: Wheezing Gastrointestinal/Abdominal: Positive for: Normal Exam, Soft Back: Positive for: Normal Inspection Extremity: Positive for: Normal ROM Neurologic/Psych: Positive for: Alert, Oriented. Negative for: Motor/Sensory Deficits - Laboratory Results Result Diagrams: 05/16/18 06:25 05/16/18 06:25 - ECG ECG: Positive for: Interpreted By Me, Viewed By Me ECG Rhythm: Positive for: Sinus Rhythm Interpretation Of Abn EKG: Bifascicular block Interpretation Of ECG: Unchanged from prior Rate: 68 O2 Sat by Pulse Oximetry: 100 (RA) Pulse Ox Interpretation: Normal Medical Decision Making Medical Decision Making: Assessment: 72yo male with extensive medical history, comes to ER reporting chest pain. Given patient history, concerns for cardiac involvement. Plan: -- Labs -- EKG -- Chest x-ray 0700 Patient signed out to Dr. Coats pending labs, chest x-ray, and reassessment. Scribe Attestation: Documented by Jocelynn Lovelace, acting as a scribe for Kike Mancilla MD. Provider Scribe Attestation: All medical record entries made by the Scribe were at my direction and personally dictated by me. I have reviewed the chart and agree that the record accurately reflects my personal performance of the history, physical exam, medical decision making, and the department course for this patient. I have also personally directed, reviewed, and agree with the discharge instructions and disposition. Disposition - Clinical Impression Clinical Impression: CHF (congestive heart failure), Chest pain - Patient ED Disposition Is Patient to be Admitted: Transfer of Care - Disposition Disposition: Transfer of Care Disposition Time: 07:00 Condition: FAIR Patient Signed Over To: Pete Coats
[2018-05-16 07:01] LABS: BASO # 0.1 K/uL (0.0-0.2); BASO % 1.4 % (0.0-2.0); EOS # 0.2 K/uL (0.0-0.7); EOS % 3.2 % (0.0-4.0); HEMOGLOBIN 11.8 g/dL (12.0-18.0); LYMPH # 1.4 K/uL (1.0-4.3); LYMPH % 19.1 % (20.0-40.0); MEAN CELL VOLUME 93.9 fl (80.0-94.0); MEAN CORPUSCULAR HEMOGLOBIN 31.9 pg (27.0-31.0); MEAN CORPUSCULAR HGB CONC 33.9 g/dL (33.0-37.0); MEAN PLATELET VOLUME 8.1 fl (7.2-11.7); MONO # 0.5 K/uL (0.0-0.8); MONO % 7.1 % (0.0-10.0); NEUT % 69.2 % (50.0-75.0); NRBC % 0.1 % (0.0-0.0); RBC 3.72 Mil/uL (4.40-5.90); RED CELL DISTRIBUTION WIDTH 14.9 % (11.5-14.5); WHITE BLOOD COUNT 7.2 K/uL (4.8-10.8)
[2018-05-16 07:05] LABS: BLOOD UREA NITROGEN 15 mg/dl (9-20); CALCIUM 9.3 mg/dL (8.4-10.2); GFR NON-AFRICAN AMERICAN > 60
[2018-05-16 07:18] LABS: B-TYPE NATRIURETIC PEPTIDE 5120 pg/ml (0-900)
[2018-05-16 07:23] LABS: INR 1.3; PROTHROMBIN TIME 14.5 Seconds (9.8-13.1)
--- NOTE | 2018-05-16 07:29 | ED PDOC ---
- Laboratory Results Result Diagrams: 05/16/18 06:25 05/16/18 06:25 - ECG O2 Sat by Pulse Oximetry: 100 (RA) Pulse Ox Interpretation: Normal Medical Decision Making Medical Decision Making: Time: 07 Patient endorsed to provider by Dr. Mancilla, pending labs, chest x-ray and reassessment. Time:932 PROCEDURE: CHEST RADIOGRAPH, 1 VIEW HISTORY: cp COMPARISON: 04/20/2018 FINDINGS: LUNGS: Clear. PLEURA: No pneumothorax or pleural fluid seen. CARDIOVASCULAR: No aortic atherosclerotic calcification present. Normal. OSSEOUS STRUCTURES: No significant abnormalities. VISUALIZED UPPER ABDOMEN: Normal. OTHER FINDINGS: None. IMPRESSION: No active disease. -------- Scribe Attestation: Documented by Mohit Berkowitz, acting as a scribe for Pete Coats MD. Provider Scribe Attestation: All medical record entries made by the Scribe were at my direction and personally dictated by me. I have reviewed the chart and agree that the record accurately reflects my personal performance of the history, physical exam, medical decision making, and the department course for this patient. I have also personally directed, reviewed, and agree with the discharge instructions and disposition. Disposition - Clinical Impression Clinical Impression: CHF (congestive heart failure), Chest pain - POA Present On Arrival: None - Disposition Disposition: Hospitalized as Observation Patient Disposition Time: 11:10 Condition: FAIR Forms: [employer] (T[place]anian)
--- NOTE | 2018-05-16 09:34 | CARD ---
APPROVED REPORT Date of service: 05/16/2018 EKG Measurement Heart [id number] CT [id number] <Conclusion> Normal sinus rhythm Right bundle branch block Left anterior fascicular block Bifascicular block T wave abnormality, consider anterolateral ischemia Abnormal ECG
--- NOTE | 2018-05-16 09:37 | RAD ---
Date of service: 05/16/2018 PROCEDURE: CHEST RADIOGRAPH, 1 VIEW HISTORY: cp COMPARISON: 04/20/2018 FINDINGS: LUNGS: Clear. PLEURA: No pneumothorax or pleural fluid seen. CARDIOVASCULAR: No aortic atherosclerotic calcification present. Normal. OSSEOUS STRUCTURES: No significant abnormalities. VISUALIZED UPPER ABDOMEN: Normal. OTHER FINDINGS: None. IMPRESSION: No active disease.
--- NOTE | 2018-05-16 11:52 | CP.PCM.HP ---
<Dagoberto Camarena - Last Filed: 05/16/18 15:57> History of Present Illness - History of Present Illness History of Present Illness: A 72 yo male with Hx of COPD, hypertension, CAD, CHF, high cholesterol, NSTEMI, presents to ER with chest pain since 2 am today that woke him up. Patient State pain was located in his chest and radiate to the back. Patient state chest pain have improved but still have back pain, otherwise patient have no other complain. Patient state he was also SOB but thats his baseline as he use Oxygen for his COPD, Denies any SOB exacerbation, headache, fever, chills, cough, vomiting, sweats, and other medical complaints. PMD: Dr House. Dr Farah ROS: Negative except what mentioned in HPI PMH: [place], CAD s/p stentsx3, HTN ,DM, active smoker ,COPD, Chronic anemia, Cardiac arrhythmia. PSH: S/P coronary stent (x3-2016) Cholecystectomy-2013, Cataract surgery SH: Lives alone, reports smokes 5-6 Cigarettes daily for 40yrs; denies illegal drug use; denies Alcohol use FH: Father had [place] age 92, mother 96 y/o after hip fracture. Allergies: Ampicillin(rash/sob), Codeine Code status: Full code ED course: Vital: WNL except for BP of 153/63 Labs: CBC WNL, Troponin 0.20539 (neg) Pro-B 5120H(chronic high) EKG NSR RBBB, left anterior fasciclar block, inferior [place] age undetermined.( unchanged from last EKG) X-Ray: negative for disease Patient received Toradol Lasix given Nitrostat given Patient admitted to Tele to evaluated for ACS Present on Admission - Present on Admission Any Indicators Present on Admission: No Past Patient History - Infectious Disease Hx of Infectious Diseases: None - Tetanus Immunizations Tetanus Immunization: Unknown - Past Medical History & Family History Past Medical History?: Yes - Past Social History Smoking Status: Light Smoker < 10 Cigarettes Daily - CARDIAC Hx Cardia Arrhythmia: Yes Hx Congestive Heart Failure: Yes Hx Hypercholesterolemia: Yes Hx Hypertension: Yes - PULMONARY Hx Asthma: Yes Hx Bronchitis: No Hx Chronic Obstructive Pulmonary Disease (COPD): Yes Hx Emphysema: Yes Hx Pneumonia: Yes - NEUROLOGICAL Hx Multiple Sclerosis: Yes Hx Transient Ischemic Attacks (TIA): Yes - HEENT Hx HEENT Problems: No Hx Cataracts: Yes - RENAL Hx Chronic Kidney Disease: No - ENDOCRINE/METABOLIC Hx Endocrine Disorders: Yes Hx Diabetes Mellitus Type 2: Yes - HEMATOLOGICAL/ONCOLOGICAL Hx Anemia: Yes Hx Human Immunodeficiency Virus (HIV): No - INTEGUMENTARY Hx Dermatological Problems: No - MUSCULOSKELETAL/RHEUMATOLOGICAL Hx Arthritis: Yes Hx Fractures: Yes (bilateral feet) - GASTROINTESTINAL Hx Gastrointestinal Disorders: No - GENITOURINARY/GYNECOLOGICAL Hx Genitourinary Disorders: Yes - PSYCHIATRIC Hx Anxiety: Yes Hx Depression: Yes - SURGICAL HISTORY Hx Cholecystectomy: Yes Hx Coronary Artery Bypass Graft: No Hx Coronary Stent: Yes (x3) - ANESTHESIA Hx Anesthesia: Yes Hx Anesthesia Reactions: No Hx Malignant Hyperthermia: No Meds Allergies/Adverse Reactions: Allergies Allergy/AdvReac Type Severity Reaction Status Date / Time codeine Allergy Intermediate HEADACHE Verified 04/24/18 14:54 ampicillin Allergy RASH Verified 04/20/18 14:24 Physical Exam - Constitutional Appears: Well, Non-toxic, No Acute Distress - Head Exam Head Exam: ATRAUMATIC, NORMAL INSPECTION, NORMOCEPHALIC - Eye Exam Eye Exam: EOMI, Normal appearance, PERRL Pupil Exam: NORMAL ACCOMODATION, PERRL - ENT Exam ENT Exam: Mucous Membranes Moist, Normal Exam - Neck Exam Neck exam: Positive for: Full Rom, Normal Inspection - Respiratory Exam Respiratory Exam: Clear to Auscultation Bilateral, NORMAL BREATHING PATTERN - Cardiovascular Exam Cardiovascular Exam: REGULAR RHYTHM, +S1, +S2 - GI/Abdominal Exam GI & Abdominal Exam: Normal Bowel Sounds, Soft - Extremities Exam Extremities exam: Positive for: normal inspection. Negative for: calf tenderness - Back Exam Back exam: NORMAL INSPECTION - Neurological Exam Neurological exam: Alert, Normal Gait, Oriented x3 - Psychiatric Exam Psychiatric exam: Normal Affect, Normal Mood - Skin Skin Exam: Dry, Intact, Normal Color, Warm Results - Vital Signs Recent Vital Signs: Last Vital Signs Temp 98.3 F 05/16/18 11:28 Pulse 78 05/16/18 11:28 Resp 20 05/16/18 11:28 BP 129/60 05/16/18 11:28 Pulse Ox 99 05/16/18 11:28 - Labs Result Diagrams: 05/16/18 06:25 05/16/18 06:25 Labs: Laboratory Results - last 24 hr 05/16/18 05/16/18 05/16/18 06:25 06:25 06:25 WBC 7.2 RBC 3.72 L Hgb 11.8 L Hct 34.9 L MCV 93.9 D MCH 31.9 H MCHC 33.9 RDW 14.9 H Plt Count 208 MPV 8.1 Neut % (Auto) 69.2 Lymph % (Auto) 19.1 L [place] % (Auto) 7.1 Eos % (Auto) 3.2 Baso % (Auto) 1.4 Neut # (Auto) 5.0 Lymph # (Auto) 1.4 [place] # (Auto) 0.5 Eos # (Auto) 0.2 Baso # (Auto) 0.1 PT 14.5 H INR 1.3 APTT 35.0 Sodium 137 Potassium 4.2 Chloride 101 Carbon Dioxide 26 Anion Gap 14 BUN 15 Creatinine 0.9 Est GFR ( Amer) > 60 Est GFR (Non-Af Amer) > 60 Random Glucose 159 H Calcium 9.3 Troponin I 0.0590 NT-Pro-B Natriuret Pep 5120 H Assessment & Plan - Assessment and Plan (Free Text) Assessment: 72 yo male with Hx of COPD, hypertension, CAD, CHF, high cholesterol, NSTEMI presented to ER Due to chest pain, Admitted to tele to evaluate for ACS Chest Pain need to be evaluated for ACS -Chest pain improved -EKG un change from last EKG -Chest X-Ray negative for acute disease -Troponin x1 negative -ASA 81 QD -Brilinta 90mg q12h -Nitrostat PRN chest pain Monitor for pain Monitor for exacerbation F/U CBC, CMP CAD -Isosorbide [place] 30 PO QD Systolic CHF - Last echo in 12/2017 shows EF =20 with LVH -P-bro 5400 Chronic -Continue Home medication DM -chronic - Sliding scale - Hypoglycemia protocol COPD -Continue Spiriva 18 QD -Ox 2 L nc PRN BPH -Flomax 0.4 mg QD Anxiety/depression -zoloft 50 PO QD DVT prophylaxis -Lovenox 40mg SC Code Status -Full code <Miguel Childers D - Last Filed: 05/16/18 18:21> Results - Vital Signs Recent Vital Signs: Last Vital Signs Temp 97.7 F 05/16/18 15:37 Pulse 61 05/16/18 15:37 Resp 18 05/16/18 15:37 BP 138/71 11/23/18 15:37 Pulse Ox 99 05/16/18 15:37 - Labs Result Diagrams: 05/16/18 06:25 05/16/18 06:25 Labs: Laboratory Results - last 24 hr 05/16/18 05/16/18 05/16/18 06:25 06:25 06:25 WBC 7.2 RBC 3.72 L Hgb 11.8 L Hct 34.9 L MCV 93.9 D MCH 31.9 H MCHC 33.9 RDW 14.9 H Plt Count 208 MPV 8.1 Neut % (Auto) 69.2 Lymph % (Auto) 19.1 L [place] % (Auto) 7.1 Eos % (Auto) 3.2 Baso % (Auto) 1.4 Neut # (Auto) 5.0 Lymph # (Auto) 1.4 [place] # (Auto) 0.5 Eos # (Auto) 0.2 Baso # (Auto) 0.1 PT 14.5 H INR 1.3 APTT 35.0 Sodium 137 Potassium 4.2 Chloride 101 Carbon Dioxide 26 Anion Gap 14 BUN 15 Creatinine 0.9 Est GFR ( Amer) > 60 Est GFR (Non-Af Amer) > 60 Random Glucose 159 H Calcium 9.3 Troponin I 0.0590 NT-Pro-B Natriuret Pep 5120 H Attending/Attestation - Attestation I have personally seen and examined this patient.: Yes I have fully participated in the care of the patient.: Yes I have reviewed all pertinent clinical information: Yes Notes (Text): 05/16/18 16:09 Patient seen and examined with resident. Case discussed and agreed with assessme nt and plan of management.
[2018-05-16] MEDS ORDERED: Dextrose 50% SYRINGE Inj (50 ml) IV PRN (12:19)
[2018-05-16] MEDS ORDERED: Glucagon Recombinant 1 mg Inj IM PRN (12:19)
[2018-05-16] MEDS ORDERED: Digoxin 125 mcg (0.125 mg) Tab ONE (12:52)
[2018-05-16] MEDS: Digoxin 125 mcg (0.125 mg) Tab PO SCH (12:52)
[2018-05-16] MEDS ORDERED: MELATONIN 3 MG PO SCH (22:00)
[2018-05-17 00:52] VITALS: RESP 20
[2018-05-17 07:00] LABS: BASO # 0.1 K/uL (0.0-0.2); BASO % 1.1 % (0.0-2.0); EOS # 0.3 K/uL (0.0-0.7); EOS % 4.4 % (0.0-4.0); HEMOGLOBIN 11.2 g/dL (12.0-18.0); LYMPH # 1.8 K/uL (1.0-4.3); LYMPH % 25.4 % (20.0-40.0); MEAN CELL VOLUME 93.7 fl (80.0-94.0); MEAN CORPUSCULAR HEMOGLOBIN 31.3 pg (27.0-31.0); MEAN CORPUSCULAR HGB CONC 33.5 g/dL (33.0-37.0); MEAN PLATELET VOLUME 8.4 fl (7.2-11.7); MONO # 0.6 K/uL (0.0-0.8); MONO % 8.9 % (0.0-10.0); NEUT # 4.3 K/uL (1.8-7.0); NEUT % 60.2 % (50.0-75.0); RBC 3.57 Mil/uL (4.40-5.90); RED CELL DISTRIBUTION WIDTH 15.2 % (11.5-14.5); WHITE BLOOD COUNT 7.1 K/uL (4.8-10.8)
[2018-05-17 07:16] LABS: ALB/GLOB RATIO 1.2 (1.0-2.1); ALBUMIN 3.7 g/dL (3.5-5.0); ALT/SGPT 30 U/L (21-72); AST/SGOT 24 U/L (17-59); BLOOD UREA NITROGEN 17 mg/dl (9-20); CALCIUM 8.9 mg/dL (8.4-10.2); GFR NON-AFRICAN AMERICAN > 60
[2018-05-17] MEDS: Digoxin 125 mcg (0.125 mg) Tab PO SCH (08:16)
[2018-05-17 08:19] VITALS: PULSE 58
[2018-05-17] MEDS ORDERED: Enoxaparin 40 mg Syringe SC SCH (09:00)
[2018-05-17 11:57] VITALS: BP 94/54; PULSE 64; TEMP 98.4; O2SAT 98
--- NOTE | 2018-05-17 13:24 | CP.PCM.DIS ---
<Gaurav Tierney - Last Filed: 05/17/18 13:27> Provider - Provider Date of Admission: 05/16/18 11:11 Attending physician: Miguel Childers MD Time Spent in preparation of Discharge (in minutes): 15 Diagnosis - Discharge Diagnosis (1) Chest pain Status: Acute Priority: High Hospital Course - Lab Results Lab Results: Most Recent Lab Values WBC 7.1 K/uL (4.8-10.8) 05/17/18 05:18 RBC 3.57 Mil/uL (4.40-5.90) L 05/17/18 05:18 Hgb 11.2 g/dL (12.0-18.0) L 05/17/18 05:18 Hct 33.5 % (35.0-51.0) L 05/17/18 05:18 MCV 93.7 fl (80.0-94.0) 05/17/18 05:18 MCH 31.3 pg (27.0-31.0) H 05/17/18 05:18 MCHC 33.5 g/dL (33.0-37.0) 05/17/18 05:18 RDW 15.2 % (11.5-14.5) H 05/17/18 05:18 Plt Count 210 K/uL (130-400) 05/17/18 05:18 MPV 8.4 fl (7.2-11.7) 05/17/18 05:18 Neut % (Auto) 60.2 % (50.0-75.0) 05/17/18 05:18 Lymph % (Auto) 25.4 % (20.0-40.0) 05/17/18 05:18 [place] % (Auto) 8.9 % (0.0-10.0) 05/17/18 05:18 Eos % (Auto) 4.4 % (0.0-4.0) H 05/17/18 05:18 Baso % (Auto) 1.1 % (0.0-2.0) 05/17/18 05:18 Neut # (Auto) 4.3 K/uL (1.8-7.0) 05/17/18 05:18 Lymph # (Auto) 1.8 K/uL (1.0-4.3) 05/17/18 05:18 [place] # (Auto) 0.6 K/uL (0.0-0.8) 05/17/18 05:18 Eos # (Auto) 0.3 K/uL (0.0-0.7) 05/17/18 05:18 Baso # (Auto) 0.1 K/uL (0.0-0.2) 05/17/18 05:18 PT 14.5 Seconds (9.8-13.1) H 05/16/18 06:25 INR 1.3 05/16/18 06:25 APTT 35.0 Seconds (25.6-37.1) 05/16/18 06:25 Sodium 137 mmol/l (132-148) 05/17/18 05:18 Potassium 4.1 MMOL/L (3.6-5.0) 05/17/18 05:18 Chloride 100 mmol/L (98-107) 05/17/18 05:18 Carbon Dioxide 25 mmol/L (22-30) 05/17/18 05:18 Anion Gap 16 (10-20) 05/17/18 05:18 BUN 17 mg/dl (9-20) 05/17/18 05:18 Creatinine 0.9 mg/dl (0.8-1.5) 05/17/18 05:18 Est GFR ( Amer) > 60 05/17/18 05:18 Est GFR (Non-Af Amer) > 60 05/17/18 05:18 POC Glucose (mg/dL) 206 mg/dL (65-110) H 05/16/18 20:56 Random Glucose 134 mg/dL (75-110) H 05/17/18 05:18 Calcium 8.9 mg/dL (8.4-10.2) 05/17/18 05:18 Total Bilirubin 0.6 mg/dl (0.2-1.3) 05/17/18 05:18 AST 24 U/L (17-59) 05/17/18 05:18 ALT 30 U/L (21-72) 05/17/18 05:18 Alkaline Phosphatase 51 U/L (38-126) 05/17/18 05:18 Troponin I 0.0460 ng/mL (0.00-0.120) 05/17/18 05:18 NT-Pro-B Natriuret Pep 5120 pg/ml (0-900) H 05/16/18 06:25 Total Protein 6.8 G/DL (6.3-8.2) 05/17/18 05:18 Albumin 3.7 g/dL (3.5-5.0) 05/17/18 05:18 Globulin 3.0 gm/dL (2.2-3.9) 05/17/18 05:18 Albumin/Globulin Ratio 1.2 (1.0-2.1) 05/17/18 05:18 - Hospital Course Hospital Course: 72 y/o man w/ pmh of COPD, hypertension, CAD, CHF, high cholesterol, NSTEMI, presents to ER with chest pain since 2 am yesterday that woke him up from sleep. In ED patient vitals were WNL except elevated BP 153/63, CBC WNL, Trop Negative x3, ProB 5120 ( chronic) EKG had no acute changes, Xray negative. Patient received Lasix and Nitrostat. Pain improved and was sent to Telemetry for observation and Evaluate for ACS. Pt was put on ASA 81, Brilinta 90mg q12h, nitrostat PRN, and his home medication. Patient seen and examined at bedside. No acute event overnight. Patient denies any chest pain, his symptoms improved, vitals WNL, EKG negative for changes X2, Troponin negative X3 , CBC/CMP no changes. Patient feels comfortable to go home. Patient chart have been reviewed, physical exam no new finding, patient is ready to be discharged. Medical team has cleared patient. Follow up with PCP in 1-2 days. EKG NSR RBBB, left anterior fasciclar block, inferior [place] age undetermined.( unchanged from last EKG) X-Ray: negative for disease Discharge Exam - Head Exam Head Exam: ATRAUMATIC, NORMAL INSPECTION, NORMOCEPHALIC - Eye Exam Eye Exam: Normal appearance - ENT Exam ENT Exam: Mucous Membranes Moist - Respiratory Exam Respiratory Exam: Clear to PA & Lateral, NORMAL BREATHING PATTERN, UNREMARKABLE. absent: Decreased Breath Sounds, Rales, Rhonchi, Wheezes, Respiratory Distress - Cardiovascular Exam Cardiovascular Exam: REGULAR RHYTHM. absent: Tachycardia - GI/Abdominal Exam GI & Abdominal Exam: Normal Bowel Sounds, Soft. absent: Distended, Tenderness - Extremities Exam Extremities exam: normal inspection - Neurological Exam Neurological exam: Alert, Oriented x3 - Psychiatric Exam Psychiatric exam: Normal Affect, Normal Mood - Skin Skin Exam: Dry, Intact, Normal Color, Warm Discharge Plan - Follow Up Plan Condition: FAIR Disposition: HOME/ ROUTINE Instructions: Shortness of Breath (Dyspnea) (DC), Chest Pain (DC) <Miguel Childers - Last Filed: 05/17/18 14:11> Provider - Provider Date of Admission: 05/16/18 11:11 Attending physician: Miguel Childers MD Hospital Course - Lab Results Lab Results: Most Recent Lab Values WBC 7.1 K/uL (4.8-10.8) 05/17/18 05:18 RBC 3.57 Mil/uL (4.40-5.90) L 05/17/18 05:18 Hgb 11.2 g/dL (12.0-18.0) L 05/17/18 05:18 Hct 33.5 % (35.0-51.0) L 05/17/18 05:18 MCV 93.7 fl (80.0-94.0) 05/17/18 05:18 MCH 31.3 pg (27.0-31.0) H 05/17/18 05:18 MCHC 33.5 g/dL (33.0-37.0) 05/17/18 05:18 RDW 15.2 % (11.5-14.5) H 05/17/18 05:18 Plt Count 210 K/uL (130-400) 05/17/18 05:18 MPV 8.4 fl (7.2-11.7) 05/17/18 05:18 Neut % (Auto) 60.2 % (50.0-75.0) 05/17/18 05:18 Lymph % (Auto) 25.4 % (20.0-40.0) 05/17/18 05:18 [place] % (Auto) 8.9 % (0.0-10.0) 05/17/18 05:18 Eos % (Auto) 4.4 % (0.0-4.0) H 05/17/18 05:18 Baso % (Auto) 1.1 % (0.0-2.0) 05/17/18 05:18 Neut # (Auto) 4.3 K/uL (1.8-7.0) 05/17/18 05:18 Lymph # (Auto) 1.8 K/uL (1.0-4.3) 05/17/18 05:18 [place] # (Auto) 0.6 K/uL (0.0-0.8) 05/17/18 05:18 Eos # (Auto) 0.3 K/uL (0.0-0.7) 05/17/18 05:18 Baso # (Auto) 0.1 K/uL (0.0-0.2) 05/17/18 05:18 PT 14.5 Seconds (9.8-13.1) H 05/16/18 06:25 INR 1.3 05/16/18 06:25 APTT 35.0 Seconds (25.6-37.1) 05/16/18 06:25 Sodium 137 mmol/l (132-148) 05/17/18 05:18 Potassium 4.1 MMOL/L (3.6-5.0) 05/17/18 05:18 Chloride 100 mmol/L (98-107) 05/17/18 05:18 Carbon Dioxide 25 mmol/L (22-30) 05/17/18 05:18 Anion Gap 16 (10-20) 05/17/18 05:18 BUN 17 mg/dl (9-20) 05/17/18 05:18 Creatinine 0.9 mg/dl (0.8-1.5) 05/17/18 05:18 Est GFR ( Amer) > 60 05/17/18 05:18 Est GFR (Non-Af Amer) > 60 05/17/18 05:18 POC Glucose (mg/dL) 206 mg/dL (65-110) H 05/16/18 20:56 Random Glucose 134 mg/dL (75-110) H 05/17/18 05:18 Calcium 8.9 mg/dL (8.4-10.2) 05/17/18 05:18 Total Bilirubin 0.6 mg/dl (0.2-1.3) 05/17/18 05:18 AST 24 U/L (17-59) 05/17/18 05:18 ALT 30 U/L (21-72) 05/17/18 05:18 Alkaline Phosphatase 51 U/L (38-126) 05/17/18 05:18 Troponin I 0.0460 ng/mL (0.00-0.120) 05/17/18 05:18 NT-Pro-B Natriuret Pep 5120 pg/ml (0-900) H 05/16/18 06:25 Total Protein 6.8 G/DL (6.3-8.2) 05/17/18 05:18 Albumin 3.7 g/dL (3.5-5.0) 05/17/18 05:18 Globulin 3.0 gm/dL (2.2-3.9) 05/17/18 05:18 Albumin/Globulin Ratio 1.2 (1.0-2.1) 05/17/18 05:18 Attending/Attestation - Attestation I have personally seen and examined this patient.: Yes I have fully participated in the care of the patient.: Yes I have reviewed all pertinent clinical information, including history, physical exam and plan: Yes Notes (Text): 05/17/18 14:10 Patient seen and examined with resident. Case discussed and agreed with assessment. Patient discharged in stable condition.
== END 2018-05-17 14:20 ==
LOC: H.ER 05:56 → H.ERHOLD 11:11 → H.TEL 13:40
DX: R07.89 Other chest pain (principal); I11.0 Hypertensive heart disease with heart failure; I50.20 Unspecified systolic (congestive) heart failure; I25.2 Old myocardial infarction; I45.10 Unspecified right bundle-branch block; J43.9 Emphysema, unspecified; N40.0 Benign prostatic hyperplasia without lower urinary tract symptoms; Z79.82 Long term (current) use of aspirin; Z82.49 Family history of ischemic heart disease and other diseases of the circulatory system; Z86.73 Personal history of transient ischemic attack (TIA), and cerebral infarction without residual deficits; Z87.01 Personal history of pneumonia (recurrent); Z90.49 Acquired absence of other specified parts of digestive tract; Z95.5 Presence of coronary angioplasty implant and graft; D64.9 Anemia, unspecified; H26.9 Unspecified cataract; I49.9 Cardiac arrhythmia, unspecified; E78.5 Hyperlipidemia, unspecified; M19.90 Unspecified osteoarthritis, unspecified site; Z79.899 Other long term (current) drug therapy; M54.9 Dorsalgia, unspecified; E11.9 Type 2 diabetes mellitus without complications; E78.00 Pure hypercholesterolemia, unspecified; F32.9 Major depressive disorder, single episode, unspecified; F41.9 Anxiety disorder, unspecified; G35 Multiple sclerosis; I25.10 Atherosclerotic heart disease of native coronary artery without angina pectoris; F17.210 Nicotine dependence, cigarettes, uncomplicated
CPT/HCPCS: 36415; 71045; 80048; 80053; 82948; 83880; 84484; 85025; 85610; 85730; 93005; 96374; 99285; G0378; J1650; J1940

== ENCOUNTER 2018-08-12 13:38 | Observation (INO) | payer MEDICARE ==
--- NOTE | 2018-08-12 15:31 | ED PDOC ---
HPI: Chest Pain Time Seen by Provider: 08/12/18 14:35 Chief Complaint (Nursing): Chest Pain Chief Complaint (Provider): chest pain History Per: Patient History/Exam Limitations: no limitations Onset/Duration Of Symptoms: Days Current Symptoms Are (Timing): Still Present Quality: "Pain" Nitro Therapy Administered: Per Own Supply, Partial Relief Additional History Per: Patient Additional Complaint(s): 72yo male, with history of CAD, coronary stents, diabetes, COPD on home 02, comes to ER reporting persistent chest pain x 4 days. Patient states he used 4x topical nitro with some relief of symptoms. He denies any fever, chills, shortness of breath or vomiting. Patient does state the pain radiates to his right upper back. No additional complaints. PMD: Dr. House Past Medical History Reviewed: Historical Data, Nursing Documentation, Vital Signs Vital Signs: Last Vital Signs Temp 98.7 F 08/12/18 13:49 Pulse 89 08/12/18 13:49 Resp 20 08/12/18 13:49 BP 113/70 08/12/18 13:49 Pulse Ox 99 08/12/18 13:49 - Medical History PMH: Anemia, Anxiety, Arthritis, Asthma, Benign Prostatic Hyperplasia, CAD, Cardia Arrhythmia, CHF, COPD, CVA, Depression, Diabetes, Emphysema, Fractures (bilateral feet), HTN, Hypercholesterolemia, Hyperlipidemia, Multiple Sclerosis, Pneumonia, TIA Denies: Bronchitis, HIV, Chronic Kidney Disease - Surgical History Surgical History: Cholecystectomy, Coronary Stent (x3) Denies: CABG - Family History Family History: States: No Known Family Hx, Diabetes - Living Arrangements Living Arrangements: With Family - Social History Current smoker - smoking cessation education provided: Yes (< 1 cigarette a day) Alcohol: None Drugs: Denies - Home Medications Home Medications: Ambulatory Orders Medication Instructions Recorded RX: Sertraline [Zoloft] 50 mg PO DAILY #30 tab 09/18/17 RX: Tamsulosin [Flomax] 0.4 mg PO DAILY #30 cap 09/18/17 RX: Nitroglycerin [Nitrostat SL 0.4 mg SL Q5MIN PRN 04/24/18 Tab] RX: Aspirin [Ecotrin] 81 mg PO DAILY #100 tabec 04/30/18 RX: Digoxin 0.125 mg PO DAILY 05/16/18 RX: Isosorbide Mononitrate ER 60 mg PO DAILY 05/16/18 [Imdur ER] RX: Lisinopril [Zestril] 10 mg PO DAILY 05/16/18 RX: Melatonin [Melatin] 3 mg PO HS 05/16/18 RX: Metoprolol Tartrate [Lopressor] 100 mg PO Q12 05/16/18 RX: Ticagrelor [Brilinta] 90 mg PO Q12 05/16/18 RX: traMADol [Ultram] 50 mg PO Q8H PRN 05/16/18 RX: Atorvastatin [Lipitor] 20 mg PO HS 08/12/18 RX: metFORMIN [glucOPHAGE] 500 mg PO DAILY 08/12/18 - Allergies Allergies/Adverse Reactions: Allergies Allergy/AdvReac Type Severity Reaction Status Date / Time codeine Allergy Intermediate HEADACHE Verified 08/12/18 13:49 ampicillin Allergy RASH Verified 08/12/18 13:49 CARMEN Risk Score for UA/NSTEMI - CARMEN Risk Score Age > 64: YES 3 or more CAD Risk Factors: YES Known CAD (Stenosis greater than 50%): YES Aspirin use in past 7 days: YES Severe Angina: NO EKG ST changes greater than 0.5mm: NO Positive Cardiac Marker: NO CARMEN Score: 4 Risk %: 20% Review of Systems ROS Statement: Except As Marked, All Systems Reviewed And Found Negative Constitutional: Negative for: Fever, Chills Cardiovascular: Positive for: Chest Pain Respiratory: Negative for: Cough, Shortness of Breath Gastrointestinal: Negative for: Vomiting Physical Exam - Reviewed Nursing Documentation Reviewed: Yes Vital Signs Reviewed: Yes - Physical Exam Appears: Positive for: Non-toxic, No Acute Distress. Negative for: Well (chronically ill, cachectic, on ) Head Exam: Positive for: ATRAUMATIC, NORMAL INSPECTION, NORMOCEPHALIC Skin: Positive for: Normal Color Eye Exam: Positive for: Normal appearance ENT: Positive for: Normal ENT Inspection Neck: Positive for: Supple Cardiovascular/Chest: Positive for: Regular Rate, Rhythm. Negative for: Murmur Respiratory: Positive for: Normal Breath Sounds. Negative for: Rales, Rhonchi, Wheezing Gastrointestinal/Abdominal: Positive for: Normal Exam, Soft Back: Positive for: Normal Inspection Extremity: Positive for: Normal ROM. Negative for: Pedal Edema Neurologic/Psych: Positive for: Alert, Oriented - Laboratory Results Result Diagrams: 08/13/18 05:00 08/13/18 05:00 - ECG ECG: Positive for: Interpreted By Me, Viewed By Me ECG Rhythm: Positive for: Sinus Rhythm Rate: 75 O2 Sat by Pulse Oximetry: 99 (O2 via NC) Pulse Ox Interpretation: Normal Medical Decision Making Medical Decision Making: Impression: Chest pain, history of CAD vs COPD exacerbation Plan: -- Labs -- EKG -- Chest x-ray -- Tramadol 50mg PO 1600 Patient signed out to Dr. Jackson pending labs, ER workup ---- Scribe Attestation: Documented by Jocelynn Lovelace acting as a scribe for Susie Clemons MD. Provider Attestation: All medical record entries made by the Scribe were at my direction and p ersonally dictated by me. I have reviewed the chart and agree that the record accurately reflects my personal performance of the history, physical exam, medical decision making, and the department course for this patient. I have also personally directed, reviewed, and agree with the discharge instructions and disposition. Disposition - Clinical Impression Clinical Impression: Chest pain, COPD exacerbation, CAD (coronary artery disease) - Patient ED Disposition Is Patient to be Admitted: Transfer of Care - Disposition Disposition: Transfer of Care Disposition Time: 16:00 Condition: STABLE Patient Signed Over To: Jazmyne Jackson
[2018-08-12 15:56] LABS: BASO # 0.1 K/uL (0.0-0.2); BASO % 1.5 % (0.0-2.0); EOS # 0.3 K/uL (0.0-0.7); EOS % 3.8 % (0.0-4.0); HEMOGLOBIN 10.7 g/dL (12.0-18.0); LYMPH # 1.4 K/uL (1.0-4.3); LYMPH % 19.1 % (20.0-40.0); MEAN CELL VOLUME 92.5 fl (80.0-94.0); MEAN CORPUSCULAR HEMOGLOBIN 30.9 pg (27.0-31.0); MEAN CORPUSCULAR HGB CONC 33.4 g/dL (33.0-37.0); MEAN PLATELET VOLUME 8.3 fl (7.2-11.7); MONO # 0.5 K/uL (0.0-0.8); MONO % 6.5 % (0.0-10.0); NEUT % 69.1 % (50.0-75.0); NRBC % 0.1 % (0.0-0.0); RBC 3.45 Mil/uL (4.40-5.90); WHITE BLOOD COUNT 7.3 K/uL (4.8-10.8)
[2018-08-12 16:05] LABS: ALB/GLOB RATIO 1.2 (1.0-2.1); ALBUMIN 3.7 g/dL (3.5-5.0); ALT/SGPT 28 U/L (21-72); AST/SGOT 27 U/L (17-59); BLOOD UREA NITROGEN 14 mg/dl (9-20); CALCIUM 8.9 mg/dL (8.4-10.2); GFR NON-AFRICAN AMERICAN > 60
--- NOTE | 2018-08-12 16:13 | ED PDOC ---
- Laboratory Results Result Diagrams: 08/13/18 05:00 08/13/18 05:00 Lab Results: Total Bilirubin 0.2 mg/dl (0.2-1.3) 08/12/18 15:20 AST 27 U/L (17-59) 08/12/18 15:20 ALT 28 U/L (21-72) 08/12/18 15:20 Alkaline Phosphatase 69 U/L (38-126) 08/12/18 15:20 Total Protein 6.7 G/DL (6.3-8.2) 08/12/18 15:20 Albumin 3.7 g/dL (3.5-5.0) 08/12/18 15:20 Globulin 3.0 gm/dL (2.2-3.9) 08/12/18 15:20 Albumin/Globulin Ratio 1.2 (1.0-2.1) 08/12/18 15:20 - ECG O2 Sat by Pulse Oximetry: 99 (O2 via NC) Medical Decision Making Medical Decision Making: Receiving sign out: Patient signed out to me by Dr. Rodgers at 1600 pending labs, chest x-ray, reassessment. 1650 Chest x-ray FINDINGS: LUNGS: No active pulmonary disease. PLEURA: No significant pleural effusion identified. No pneumothorax apparent. CARDIOVASCULAR: No aortic atherosclerotic calcification present. Normal cardiac size. No pulmonary vascular congestion. OSSEOUS STRUCTURES: No significant abnormalities. VISUALIZED UPPER ABDOMEN: Gastric distension with large air-fluid level. No visible free air OTHER FINDINGS: None. IMPRESSION: No active disease. No significant interval change compared to the prior examination(s). [address] House, who states patient to be admitted. Labs reviewed, patient's first troponin is 0.0290 Plan of care including admission discussed with patient, who is agreeable. 1755 Case discussed with hospitalist healthcare market consultant, who accepts patient for admission. Scribe Attestation: Documented by Jocelynn Lovelace acting as a scribe for Jazmyne Jackson MD. Provider Attestation: All medical record entries made by the Scribe were at my direction and personally dictated by me. I have reviewed the chart and agree that the record accurately reflects my personal performance of the history, physical exam, medical decision making, and the department course for this patient. I have also personally directed, reviewed, and agree with the discharge instructions and disposition. Disposition Counseled Patient/Family Regarding: Studies Performed - Clinical Impression Clinical Impression: Chest pain, COPD exacerbation, CAD (coronary artery disease) - POA Present On Arrival: None - Disposition Disposition: Admitted as In-Patient Disposition Time: 17:55 Condition: STABLE
--- NOTE | 2018-08-12 16:26 | RAD ---
Date of service: 08/12/2018 HISTORY: chest pain COMPARISON: 05/16/2018. TECHNIQUE: Chest PA and lateral FINDINGS: LUNGS: No active pulmonary disease. PLEURA: No significant pleural effusion identified. No pneumothorax apparent. CARDIOVASCULAR: No aortic atherosclerotic calcification present. Normal cardiac size. No pulmonary vascular congestion. OSSEOUS STRUCTURES: No significant abnormalities. VISUALIZED UPPER ABDOMEN: Gastric distension with large air-fluid level. No visible free air OTHER FINDINGS: None. IMPRESSION: No active disease. No significant interval change compared to the prior examination(s).
[2018-08-12] MEDS ORDERED: Insulin Regular 100 units/ml IV STA (16:56)
[2018-08-12] MEDS ORDERED: Insulin Regular 100 units/ml ONE (17:36)
--- NOTE | 2018-08-12 20:09 | CP.PCM.HP ---
History of Present Illness - History of Present Illness History of Present Illness: 72 y/o male with history of NE, COPD, DM, HTN, CAD with 3 PCI ,arthritis, CHF ,chronic anemia ,just discharged home on 07/25/18 after being 4 months in [facility] ,presented to the ED with complaints of 4 day history mid sternal chest pain radiating to the right shoulder and his back with exercise . Pain is sharp in nature , severe 7/10 relieved with tramadol, not associated with any SOB.He denies any cough, fever , chills. States that quit smoking for the duration of rehab stay and now after returning home has been smoking very rarely Denies any abdominal pain , dysuria, frequency , diarrhea, chills, nausea or vomiting. Allergies ; Ampicillin, codeine PMH: Anemia, Anxiety, Arthritis,CAD, Cardiac Arrhythmia, CHF, COPD, DM II; Emphysema, Fractures (bilateral feet), HTN, HLD Medications : see med rec Surgeries : Cholecystectomy, Coronary Stent (x3); Cataract surgery Social history : lives in [place] alone, quit smoking for the duration of rehab stay and now after returning home has been smoking very rarely , No illegal drug use; No Alcohol Family history ; None PMD ; Dr. House ROS ; 10 point review of system negative except above Code status : full Present on Admission - Present on Admission Any Indicators Present on Admission: No Review of Systems - Review of Systems All systems: reviewed and no additional remarkable complaints except Past Patient History - Infectious Disease Hx of Infectious Diseases: None - Tetanus Immunizations Tetanus Immunization: Unknown - Past Medical History & Family History Past Medical History?: Yes Past Family History: Reviewed and not pertinent - Past Social History Smoking Status: Heavy Smoker > 10 Cigarettes Daily Chewing Tobacco Use: No Cigar Use: No Alcohol: None Drugs: Denies Home Situation {Lives}: Alone - CARDIAC Hx Cardia Arrhythmia: Yes Hx Congestive Heart Failure: Yes Hx Hypercholesterolemia: Yes Hx Hypertension: Yes - PULMONARY Hx Asthma: Yes Hx Bronchitis: No Hx Chronic Obstructive Pulmonary Disease (COPD): Yes Hx Emphysema: Yes Hx Pneumonia: Yes - NEUROLOGICAL Hx Multiple Sclerosis: Yes Hx Transient Ischemic Attacks (TIA): Yes - HEENT Hx HEENT Problems: No Hx Cataracts: Yes - RENAL Hx Chronic Kidney Disease: No - ENDOCRINE/METABOLIC Hx Endocrine Disorders: Yes Hx Diabetes Mellitus Type 2: Yes - HEMATOLOGICAL/ONCOLOGICAL Hx Anemia: Yes Hx Human Immunodeficiency Virus (HIV): No - INTEGUMENTARY Hx Dermatological Problems: No - MUSCULOSKELETAL/RHEUMATOLOGICAL Hx Arthritis: Yes Hx Fractures: Yes (bilateral feet) - GASTROINTESTINAL Hx Gastrointestinal Disorders: No - GENITOURINARY/GYNECOLOGICAL Hx Genitourinary Disorders: Yes - PSYCHIATRIC Hx Anxiety: Yes Hx Depression: Yes - SURGICAL HISTORY Hx Cholecystectomy: Yes Hx Coronary Artery Bypass Graft: No Hx Coronary Stent: Yes (x3) - ANESTHESIA Hx Anesthesia: Yes Hx Anesthesia Reactions: No Hx Malignant Hyperthermia: No Meds Allergies/Adverse Reactions: Allergies Allergy/AdvReac Type Severity Reaction Status Date / Time codeine Allergy Intermediate HEADACHE Verified 08/12/18 13:49 ampicillin Allergy RASH Verified 08/12/18 13:49 Physical Exam - Constitutional Appears: Non-toxic, No Acute Distress, Cachectic, Chronically Ill - Head Exam Head Exam: ATRAUMATIC, NORMAL INSPECTION, NORMOCEPHALIC - Eye Exam Eye Exam: EOMI, Normal appearance, PERRL Pupil Exam: NORMAL ACCOMODATION - ENT Exam ENT Exam: Mucous Membranes Moist, Normal Exam - Neck Exam Neck exam: Positive for: Full Rom, Normal Inspection - Respiratory Exam Respiratory Exam: Clear to Auscultation Bilateral, NORMAL BREATHING PATTERN. absent: Rales, Rhonchi, Wheezes - Cardiovascular Exam Cardiovascular Exam: REGULAR RHYTHM, RRR, +S1, +S2. absent: JVD - GI/Abdominal Exam GI & Abdominal Exam: Normal Bowel Sounds, Soft. absent: Distended, Guarding, Rebound, Tenderness - Rectal Exam Rectal Exam: Deferred - Extremities Exam Extremities exam: Positive for: normal capillary refill, normal inspection, pedal pulses present. Negative for: calf tenderness, pedal edema - Back Exam Back exam: NORMAL INSPECTION - Neurological Exam Neurological exam: Alert, CN II-XII Intact, Oriented x3, Reflexes Normal - Psychiatric Exam Psychiatric exam: Normal Affect, Normal Mood - Skin Skin Exam: Dry, Intact, Normal Color, Warm Results - Vital Signs Recent Vital Signs: Last Vital Signs Temp 97.6 F 08/12/18 18:33 Pulse 76 08/12/18 18:33 Resp 19 08/12/18 18:33 BP 130/76 08/12/18 18:33 Pulse Ox 98 08/12/18 18:33 - Labs Result Diagrams: 08/12/18 15:20 08/12/18 15:20 Labs: Laboratory Results - last 24 hr 08/12/18 08/12/18 08/12/18 15:20 15:20 17:20 WBC 7.3 RBC 3.45 L Hgb 10.7 L Hct 31.9 L MCV 92.5 MCH 30.9 MCHC 33.4 RDW 14.0 Plt Count 238 MPV 8.3 Neut % (Auto) 69.1 Lymph % (Auto) 19.[address] [place] % (Auto) 6.5 Eos % (Auto) 3.8 Baso % (Auto) 1.5 Neut # (Auto) 5.0 Lymph # (Auto) 1.4 [place] # (Auto) 0.5 Eos # (Auto) 0.3 Baso # (Auto) 0.1 Sodium 137 Potassium 4.6 Chloride 98 Carbon Dioxide 27 Anion Gap 17 BUN 14 Creatinine 1.0 Est GFR ( Amer) > 60 Est GFR (Non-Af Amer) > 60 Random Glucose 328 H Calcium 8.9 Total Bilirubin 0.2 AST 27 ALT 28 Alkaline Phosphatase 69 Troponin I 0.0290 NT-Pro-B Natriuret Pep 4360 H Total Protein 6.7 Albumin 3.7 Globulin 3.0 Albumin/Globulin Ratio 1.2 Assessment & Plan - Assessment and Plan (Free Text) Assessment: 72 y/o male with PMH NE , CAD s/p stents, HTN ,DM, smoker , COPD, chronic anemia presented with midsternal chest pain,radiating to his right shoulder and back not responding to Nitro. In ER Trop was negative and EKG showed no acute changes . Pain improved after Toradol and nitro was given. Due to his extensive PMH and risk factors will place patient under observation in telemetry for angina. Will place under tele monitor and Cyclew Trop q8 hours 1. Chest pain will place on observation in telemetry Cycle Trop q8 hours patient is high risk( had refused cardiac cath in the past) Continue ASA, Statin ,BB Nitro PRN for chest pain Tramadol for shoulder Pain PRN O2 via NC PRN 2.Chronic CHF , systolic dysfunction Last echo in 12/2017 shows EF =20 with LVH continue Lisinopril , Metoprolol, Digoxin 3. Osteoarthritis Tramadol PRN 4.DM type II chronic continue accuchecks, insulin coverage and diabetic diet 5.COPD stable Duonebs PRN , Spiriva 6.Hypertension controlled chronic Resume home meds 7.Anxiety and depression on zoloft 8. BPH on Flomax 9. Chronic anemia stable 10. Cachexia BMI 11.DVT prophylaxis On Brilinta ? will need to verify home meds
[2018-08-12] MEDS ORDERED: NITROGLYCERIN 0.4 MG SL PRN (20:40)
[2018-08-12] MEDS ORDERED: Glucagon Recombinant 1 mg Inj IM PRN (20:45)
[2018-08-12] MEDS ORDERED: Dextrose 50% SYRINGE Inj (50 ml) IV PRN (20:45)
[2018-08-12] MEDS ORDERED: MELATONIN 3 MG PO SCH (22:00)
[2018-08-12] MEDS: Insulin Lispro (humaLOG) 100 Units/ml Inj SC SCH (22:13)
[2018-08-13 05:33] LABS: BASO # 0.2 K/uL (0.0-0.2); BASO % 2.1 % (0.0-2.0); EOS # 0.4 K/uL (0.0-0.7); EOS % 4.3 % (0.0-4.0); HEMOGLOBIN 11.3 g/dL (12.0-18.0); LYMPH # 2.7 K/uL (1.0-4.3); LYMPH % 28.4 % (20.0-40.0); MEAN CELL VOLUME 92.1 fl (80.0-94.0); MEAN CORPUSCULAR HGB CONC 33.6 g/dL (33.0-37.0); MEAN PLATELET VOLUME 7.8 fl (7.2-11.7); MONO # 0.7 K/uL (0.0-0.8); MONO % 7.7 % (0.0-10.0); NEUT # 5.6 K/uL (1.8-7.0); NEUT % 57.5 % (50.0-75.0); RBC 3.64 Mil/uL (4.40-5.90); RED CELL DISTRIBUTION WIDTH 14.3 % (11.5-14.5); WHITE BLOOD COUNT 9.7 K/uL (4.8-10.8)
[2018-08-13 05:40] LABS: BLOOD UREA NITROGEN 17 mg/dl (9-20); CALCIUM 9.3 mg/dL (8.4-10.2); GFR NON-AFRICAN AMERICAN > 60; HDL CHOLESTEROL 27 MG/DL (30-70)
[2018-08-13 05:47] LABS: LDL CHOLESTEROL 63 mg/dL (0-129)
[2018-08-13 08:23] VITALS: RESP 18
[2018-08-13 08:27] VITALS: PULSE 72
[2018-08-13] MEDS: Insulin Lispro (humaLOG) 100 Units/ml Inj SC SCH ×2 (08:27→11:33)
[2018-08-13] MEDS ORDERED: Digoxin 125 mcg (0.125 mg) Tab PO SCH (09:00)
[2018-08-13] MEDS ORDERED: Pantoprazole 40 mg EC Tab PO SCH (09:00)
--- NOTE | 2018-08-13 09:07 | CARD ---
APPROVED REPORT Date of service: 08/12/2018 EKG Measurement Heart [id number] <Conclusion> Sinus rhythm with 1st degree AV block Left axis deviation Right bundle branch block T wave abnormality, consider lateral ischemia Abnormal ECG
--- NOTE | 2018-08-13 10:18 | CP.PCM.DIS ---
<Yulissa Nunez - Last Filed: 08/13/18 11:59> Provider - Provider Date of Admission: 08/12/18 17:56 Attending physician: Rojas Wu MD Primary care physician: Dr. House Consults: 08/12/18 20:38 Cardiology Consult Routine Comment: Consulting Provider: Maximo House Consulting Physician: Maximo House Reason for Consult: chest pain Time Spent in preparation of Discharge (in minutes): 15 Diagnosis - Discharge Diagnosis (1) Chest pain Status: Acute Priority: High Comment: Resolved. Troponin x3 negative, received Nitro. Pt refused cardiac cath in past. C/w ASA, statin BB (2) CAD (coronary artery disease) Status: Acute Comment: Pt refused cardiac cath in the past (3) CHF (congestive heart failure) Status: Acute Comment: Last echo in 12/2017 shows EF 20 with LVH, BNP 4360. continue Lisinopril , Metoprolol, Digoxin (4) Osteoarthritis Status: Acute Comment: Tramadol PRN (5) Diabetes Status: Acute Comment: chronic, controlled. c/w home meds (6) COPD (chronic obstructive pulmonary disease) Status: Acute Comment: Chronic, Stable. c/w home meds (7) HTN (hypertension) Status: Acute Comment: chronic, stable. c/w home meds (8) Anxiety and depression Status: Acute Comment: stable. c/w zoloft (9) BPH (benign prostatic hyperplasia) Status: Acute Comment: chronic, stable. c/w home meds (10) Chronic anemia Status: Acute Comment: stable Hospital Course - Lab Results Lab Results: Most Recent Lab Values WBC 9.7 K/uL (4.8-10.8) 08/13/18 05:00 RBC 3.64 Mil/uL (4.40-5.90) L 08/13/18 05:00 Hgb 11.3 g/dL (12.0-18.0) L 08/13/18 05:00 Hct 33.5 % (35.0-51.0) L 08/13/18 05:00 MCV 92.1 fl (80.0-94.0) 08/13/18 05:00 MCH 31.0 pg (27.0-31.0) 08/13/18 05:00 MCHC 33.6 g/dL (33.0-37.0) 08/13/18 05:00 RDW 14.3 % (11.5-14.5) 08/13/18 05:00 Plt Count 249 K/uL (130-400) 08/13/18 05:00 MPV 7.8 fl (7.2-11.7) 08/13/18 05:00 Neut % (Auto) 57.5 % (50.0-75.0) 08/13/18 05:00 Lymph % (Auto) 28.4 % (20.0-40.0) 08/13/18 05:00 [place] % (Auto) 7.7 % (0.0-10.0) 08/13/18 05:00 Eos % (Auto) 4.3 % (0.0-4.0) H 08/13/18 05:00 Baso % (Auto) 2.1 % (0.0-2.0) H 08/13/18 05:00 Neut # (Auto) 5.6 K/uL (1.8-7.0) 08/13/18 05:00 Lymph # (Auto) 2.7 K/uL (1.0-4.3) 08/13/18 05:00 [place] # (Auto) 0.7 K/uL (0.0-0.8) 08/13/18 05:00 Eos # (Auto) 0.4 K/uL (0.0-0.7) 08/13/18 05:00 Baso # (Auto) 0.2 K/uL (0.0-0.2) 08/13/18 05:00 Sodium 138 mmol/l (132-148) 08/13/18 05:00 Potassium 4.8 MMOL/L (3.6-5.0) 08/13/18 05:00 Chloride 99 mmol/L (98-107) 08/13/18 05:00 Carbon Dioxide 27 mmol/L (22-30) 08/13/18 05:00 Anion Gap 17 (10-20) 08/13/18 05:00 BUN 17 mg/dl (9-20) 08/13/18 05:00 Creatinine 1.0 mg/dl (0.8-1.5) 08/13/18 05:00 Est GFR ( Amer) > 60 08/13/18 05:00 Est GFR (Non-Af Amer) > 60 08/13/18 05:00 POC Glucose (mg/dL) 133 mg/dL (65-110) H 08/13/18 05:09 Random Glucose 145 mg/dL (75-110) H 08/13/18 05:00 Calcium 9.3 mg/dL (8.4-10.2) 08/13/18 05:00 Total Bilirubin 0.2 mg/dl (0.2-1.3) 08/12/18 15:20 AST 27 U/L (17-59) 08/12/18 15:20 ALT 28 U/L (21-72) 08/12/18 15:20 Alkaline Phosphatase 69 U/L (38-126) 08/12/18 15:20 Troponin I 0.0530 ng/mL (0.00-0.120) 08/13/18 09:18 NT-Pro-B Natriuret Pep 4360 pg/ml (0-900) H 08/12/18 17:20 Total Protein 6.7 G/DL (6.3-8.2) 08/12/18 15:20 Albumin 3.7 g/dL (3.5-5.0) 08/12/18 15:20 Globulin 3.0 gm/dL (2.2-3.9) 08/12/18 15:20 Albumin/Globulin Ratio 1.2 (1.0-2.1) 08/12/18 15:20 Triglycerides 124 mg/DL (0-149) D 08/13/18 05:00 Cholesterol 108 mg/dL (0-199) 08/13/18 05:00 LDL Cholesterol Direct 63 mg/dL (0-129) 08/13/18 05:00 HDL Cholesterol 27 MG/DL (30-70) L 08/13/18 05:00 - Hospital Course Hospital Course: 72 yo male with PMHx of [place], CAD (s/p 3 stents 2015), HTN ,DM, active smoker, COPD on home O2, OA and Chronic anemia admitted for chest pain for 4 days. Patient has history of multiple NSTEMI's and evaluated by cashier payments received Dr House was planned for cardiac cath that patient refused twice during his previous admission. During this admission EKG showed NSR, RBBB, T wave inversion, Troponins x3 normal, BNP 4360, CXR negative, CBC 11.3 . Patient at this time is hemodynamically stable, denies chest pain. Patient is stable to be discharge home and continue f/u as outpatient with cashier payments received Dr House within a week. - Date & Time of H&P Date of H&P: 08/12/18 Time of H&P: 19:58 Discharge Exam - Head Exam Head Exam: ATRAUMATIC, NORMAL INSPECTION, NORMOCEPHALIC - Eye Exam Eye Exam: EOMI - ENT Exam ENT Exam: Mucous Membranes Moist - Respiratory Exam Respiratory Exam: Clear to PA & Lateral, NORMAL BREATHING PATTERN. absent: Rales, Rhonchi, Wheezes - Cardiovascular Exam Cardiovascular Exam: RRR, +S1, +S2 - GI/Abdominal Exam GI & Abdominal Exam: Normal Bowel Sounds. absent: Tenderness - Extremities Exam Extremities exam: normal inspection - Neurological Exam Neurological exam: Alert, Oriented x3 Discharge Plan - Follow Up Plan Condition: STABLE Disposition: HOME/ ROUTINE Patient education suggested?: Yes Instructions: Chest Pain (DC) Additional Instructions: Follow up with PMD in 1 week, Return to ED if persistant chest pain, or worsening of symptoms Referrals: Maximo House MD [Staff Provider] - <Jayna Sher - Last Filed: 08/13/18 14:31> Provider - Provider Date of Admission: 08/12/18 17:56 Attending physician: Rojas Wu MD Consults: 08/12/18 20:38 Cardiology Consult Routine Comment: Consulting Provider: Maximo House Consulting Physician: Maximo House Reason for Consult: chest pain Hospital Course - Lab Results Lab Results: Most Recent Lab Values WBC 9.7 K/uL (4.8-10.8) 08/13/18 05:00 RBC 3.64 Mil/uL (4.40-5.90) L 08/13/18 05:00 Hgb 11.3 g/dL (12.0-18.0) L 08/13/18 05:00 Hct 33.5 % (35.0-51.0) L 08/13/18 05:00 MCV 92.1 fl (80.0-94.0) 08/13/18 05:00 MCH 31.0 pg (27.0-31.0) 08/13/18 05:00 MCHC 33.6 g/dL (33.0-37.0) 08/13/18 05:00 RDW 14.3 % (11.5-14.5) 08/13/18 05:00 Plt Count 249 K/uL (130-400) 08/13/18 05:00 MPV 7.8 fl (7.2-11.7) 08/13/18 05:00 Neut % (Auto) 57.5 % (50.0-75.0) 08/13/18 05:00 Lymph % (Auto) 28.4 % (20.0-40.0) 08/13/18 05:00 [place] % (Auto) 7.7 % (0.0-10.0) 08/13/18 05:00 Eos % (Auto) 4.3 % (0.0-4.0) H 08/13/18 05:00 Baso % (Auto) 2.1 % (0.0-2.0) H 08/13/18 05:00 Neut # (Auto) 5.6 K/uL (1.8-7.0) 08/13/18 05:00 Lymph # (Auto) 2.7 K/uL (1.0-4.3) 08/13/18 05:00 [place] # (Auto) 0.7 K/uL (0.0-0.8) 08/13/18 05:00 Eos # (Auto) 0.4 K/uL (0.0-0.7) 08/13/18 05:00 Baso # (Auto) 0.2 K/uL (0.0-0.2) 08/13/18 05:00 Sodium 138 mmol/l (132-148) 08/13/18 05:00 Potassium 4.8 MMOL/L (3.6-5.0) 08/13/18 05:00 Chloride 99 mmol/L (98-107) 08/13/18 05:00 Carbon Dioxide 27 mmol/L (22-30) 08/13/18 05:00 Anion Gap 17 (10-20) 08/13/18 05:00 BUN 17 mg/dl (9-20) 08/13/18 05:00 Creatinine 1.0 mg/dl (0.8-1.5) 08/13/18 05:00 Est GFR ( Amer) > 60 08/13/18 05:00 Est GFR (Non-Af Amer) > 60 08/13/18 05:00 POC Glucose (mg/dL) 109 mg/dL (65-110) 08/13/18 10:55 Random Glucose 145 mg/dL (75-110) H 08/13/18 05:00 Hemoglobin A1c 8.1 % (4.2-6.5) H 08/13/18 05:00 Calcium 9.3 mg/dL (8.4-10.2) 08/13/18 05:00 Total Bilirubin 0.2 mg/dl (0.2-1.3) 08/12/18 15:20 AST 27 U/L (17-59) 08/12/18 15:20 ALT 28 U/L (21-72) 08/12/18 15:20 Alkaline Phosphatase 69 U/L (38-126) 08/12/18 15:20 Troponin I 0.0480 ng/mL (0.00-0.120) 08/13/18 12:37 NT-Pro-B Natriuret Pep 4360 pg/ml (0-900) H 08/12/18 17:20 Total Protein 6.7 G/DL (6.3-8.2) 08/12/18 15:20 Albumin 3.7 g/dL (3.5-5.0) 08/12/18 15:20 Globulin 3.0 gm/dL (2.2-3.9) 08/12/18 15:20 Albumin/Globulin Ratio 1.2 (1.0-2.1) 08/12/18 15:20 Triglycerides 124 mg/DL (0-149) D 08/13/18 05:00 Cholesterol 108 mg/dL (0-199) 08/13/18 05:00 LDL Cholesterol Direct 63 mg/dL (0-129) 08/13/18 05:00 HDL Cholesterol 27 MG/DL (30-70) L 08/13/18 05:00 Attending/Attestation - Attestation I have personally seen and examined this patient.: Yes I have fully participated in the care of the patient.: Yes I have reviewed all pertinent clinical information, including history, physical exam and plan: Yes Notes (Text): Chest Pain ACS ruled out, more on the Right shoulder with pain reproducible with ROM of Shoulder - Trop x 3 negative - Pain mgt with Ultram prn - stressed need for cardiac med compliance and to stop smoking
--- NOTE | 2018-08-13 11:18 | CP.PCM.CON ---
History of Present Illness - History of Present Illness History of Present Illness: THE PATIENT IS A 72 YEAR OLD MALE WHO WAS ADMITTED TO [facility] YESTERDAY FOR CHEST PAIN. HE HAS A HISTORY OF CAD WITH AN ACUTE SD ABOUT FIVE YEARS AGO AND A [facility] WAS CALLED IN THE ER AND THE PATIENT WAS TRANSFERRED TO [facility] AND HAD AN EMERGENCY CARDIAC CATH WITH CORONARY STENT INSERTIONS. HE HAD THREE NSTEMIS IN 2018 AND REFUSED A CARDIAC CATH FOR INTERVENTION. HIS MOTHER ABOUT 2 YEARS AGO AND SINCE THEN HE HAS BEEN DEPRESSED AND IS REFUSING ANY INVASIVE CARDIAC FOSTER OR TREATMENT AND NOT ALWAYS TAKING HIS MEDICATIONS AND STILL CONTINUES TO SMOKE. HE ALSO HAD A HISTORY OF HYPERTENSION, HYPERLIPIDEMIA AND DM. HE RECEIVED HIS USUAL MEDICINES IN THE ER AND ALSO RECEIVED TRAMADOL AND IS CHEST PAIN FREE THIS AM. Past Patient History - Infectious Disease Hx of Infectious Diseases: None - Tetanus Immunizations Tetanus Immunization: Unknown - Past Medical History & Family History Past Medical History?: Yes - Past Social History Alcohol: None Drugs: Denies - CARDIAC Hx Cardia Arrhythmia: Yes Hx Congestive Heart Failure: Yes Hx Hypercholesterolemia: Yes Hx Hypertension: Yes - PULMONARY Hx Asthma: Yes Hx Bronchitis: No Hx Chronic Obstructive Pulmonary Disease (COPD): Yes Hx Emphysema: Yes Hx Pneumonia: Yes - NEUROLOGICAL Hx Multiple Sclerosis: Yes Hx Transient Ischemic Attacks (TIA): Yes - HEENT Hx HEENT Problems: No Hx Cataracts: Yes - RENAL Hx Chronic Kidney Disease: No - ENDOCRINE/METABOLIC Hx Endocrine Disorders: Yes Hx Diabetes Mellitus Type 2: Yes - HEMATOLOGICAL/ONCOLOGICAL Hx Anemia: Yes Hx Human Immunodeficiency Virus (HIV): No - INTEGUMENTARY Hx Dermatological Problems: No - MUSCULOSKELETAL/RHEUMATOLOGICAL Hx Arthritis: Yes Hx Fractures: Yes (bilateral feet) - GASTROINTESTINAL Hx Gastrointestinal Disorders: No - GENITOURINARY/GYNECOLOGICAL Hx Genitourinary Disorders: Yes - PSYCHIATRIC Hx Anxiety: Yes Hx Depression: Yes - SURGICAL HISTORY Hx Cholecystectomy: Yes Hx Coronary Artery Bypass Graft: No Hx Coronary Stent: Yes (x3) - ANESTHESIA Hx Anesthesia: Yes Hx Anesthesia Reactions: No Hx Malignant Hyperthermia: No Meds Allergies/Adverse Reactions: Allergies Allergy/AdvReac Type Severity Reaction Status Date / Time codeine Allergy Intermediate HEADACHE Verified 08/12/18 13:49 ampicillin Allergy RASH Verified 08/12/18 13:49 - Medications Medications: Current Medications Acetaminophen (Tylenol 325mg Tab) 650 mg PO Q6 PRN PRN Reason: Fever >100.4 F Aspirin (Ecotrin) 81 mg PO DAILY [facility] Last Admin: 08/13/18 08:27 Dose: 81 mg Atorvastatin Calcium (Lipitor) 20 mg PO HS [facility] Last Admin: 08/12/18 22:14 Dose: 20 mg Dextrose (Dextrose 50% Inj) 0 ml IV STAT PRN; Protocol PRN Reason: Hypoglycemia Protocol Dextrose (Glutose 15) 0 gm PO ONCE PRN; Protocol PRN Reason: Hypoglycemia Protocol Digoxin (Digoxin) 0.125 mg PO DAILY [facility] Last Admin: 08/13/18 08:27 Dose: 0.125 mg Glucagon (Glucagen Diagnostic Kit) 0 mg IM STAT PRN; Protocol PRN Reason: Hypoglycemia Protocol Home Med (Melatonin [Melatin]) 3 mg PO HS [facility] Insulin Human Lispro (Humalog) 0 units SC ACHS [facility]; Protocol Last Admin: 08/13/18 08:27 Dose: Not Given Isosorbide Mononitrate (Imdur) 60 mg PO DAILY [facility] Last Admin: 08/13/18 08:26 Dose: 60 mg Lisinopril (Zestril) 10 mg PO DAILY [facility] Last Admin: 08/13/18 08:26 Dose: 10 mg Metformin HCl (Glucophage) 500 mg PO DAILY [facility] Last Admin: 08/13/18 10:43 Dose: 500 mg Metoprolol Tartrate (Lopressor) 100 mg PO Q12 [facility] Last Admin: 08/13/18 08:26 Dose: 100 mg Nitroglycerin (Nitrostat Sl Tab) 0.4 mg SL Q5M PRN PRN Reason: chest pain Ondansetron HCl (Zofran Inj) 4 mg IVP Q6 PRN PRN Reason: Nausea/Vomiting Pantoprazole Sodium (Protonix Ec Tab) 40 mg PO DAILY [facility] Last Admin: 08/13/18 08:27 Dose: 40 mg Sertraline HCl (Zoloft) 50 mg PO DAILY [facility] Last Admin: 08/13/18 08:28 Dose: 50 mg Tamsulosin HCl (Flomax) 0.4 mg PO DAILY [facility] Last Admin: 08/13/18 08:27 Dose: 0.4 mg Ticagrelor (Brilinta) 90 mg PO Q12 [facility] Last Admin: 08/13/18 08:26 Dose: 90 mg Tramadol HCl (Ultram) 50 mg PO Q8H PRN PRN Reason: Pain, moderate (4-7) Last Admin: 08/13/18 08:25 Dose: 50 mg Physical Exam - Respiratory Exam Respiratory Exam: Clear to Auscultation Bilateral - Cardiovascular Exam Cardiovascular Exam: REGULAR RHYTHM, +S1, +S2 - Extremities Exam Additional comments: NO LE EDEMA - Additional Findings Additional findings: EKG NSR, RBBB, T WAVE INVERSIONS IN LIMB LEADS I AND L TROPONINS NORMAL X 3 ELEVATED PBNP(CHRONICALLY ELEVATED) CXR CLEAR LUNG YEBOAH, NO PULMONARY CONGESTION Results - Vital Signs Recent Vital Signs: Last Vital Signs Temp 98.1 F 08/13/18 08:00 Pulse 75 08/13/18 10:36 Resp 18 08/13/18 08:00 BP 141/81 08/13/18 08:26 Pulse Ox 99 08/13/18 10:36 - Labs Result Diagrams: 08/13/18 05:00 08/13/18 05:00 Labs: Laboratory Results - last 24 hr 08/12/18 08/12/18 08/12/18 15:20 15:20 17:20 WBC 7.3 RBC 3.45 L Hgb 10.7 L Hct 31.9 L MCV 92.5 MCH 30.9 MCHC 33.4 RDW 14.0 Plt Count 238 MPV 8.3 Neut % (Auto) 69.1 Lymph % (Auto) 19.1 L [place] % (Auto) 6.5 Eos % (Auto) 3.8 Baso % (Auto) 1.5 Neut # (Auto) 5.0 Lymph # (Auto) 1.4 [place] # (Auto) 0.5 Eos # (Auto) 0.3 Baso # (Auto) 0.1 Sodium 137 Potassium 4.6 Chloride 98 Carbon Dioxide 27 Anion Gap 17 BUN 14 Creatinine 1.0 Est GFR ( Amer) > 60 Est GFR (Non-Af Amer) > 60 POC Glucose (mg/dL) Random Glucose 328 H Calcium 8.9 Total Bilirubin 0.2 AST 27 ALT 28 Alkaline Phosphatase 69 Troponin I 0.0290 NT-Pro-B Natriuret Pep 4360 H Total Protein 6.7 Albumin 3.7 Globulin 3.0 Albumin/Globulin Ratio 1.2 Triglycerides Cholesterol LDL Cholesterol Direct HDL Cholesterol 08/12/18 08/13/18 08/13/18 21:26 05:00 05:00 WBC 9.7 RBC 3.64 L Hgb 11.3 L Hct 33.5 L MCV 92.1 MCH 31.0 MCHC 33.6 RDW 14.3 Plt Count 249 MPV 7.8 Neut % (Auto) 57.5 Lymph % (Auto) 28.4 [place] % (Auto) 7.7 Eos % (Auto) 4.3 H Baso % (Auto) 2.1 H Neut # (Auto) 5.6 Lymph # (Auto) 2.7 [place] # (Auto) 0.7 Eos # (Auto) 0.4 Baso # (Auto) 0.2 Sodium 138 Potassium 4.8 Chloride 99 Carbon Dioxide 27 Anion Gap 17 BUN 17 Creatinine 1.0 Est GFR ( Amer) > 60 Est GFR (Non-Af Amer) > 60 POC Glucose (mg/dL) 157 H Random Glucose 145 H Calcium 9.3 Total Bilirubin AST ALT Alkaline Phosphatase Troponin I 0.0560 NT-Pro-B Natriuret Pep Total Protein Albumin Globulin Albumin/Globulin Ratio Triglycerides 124 D Cholesterol 108 LDL Cholesterol Direct 63 HDL Cholesterol 27 L 08/13/18 08/13/18 08/13/18 05:09 09:18 10:55 WBC RBC Hgb Hct MCV MCH MCHC RDW Plt Count MPV Neut % (Auto) Lymph % (Auto) [place] % (Auto) Eos % (Auto) Baso % (Auto) Neut # (Auto) Lymph # (Auto) [place] # (Auto) Eos # (Auto) Baso # (Auto) Sodium Potassium Chloride Carbon Dioxide Anion Gap BUN Creatinine Est GFR ( Amer) Est GFR (Non-Af Amer) POC Glucose (mg/dL) 133 H 109 Random Glucose Calcium Total Bilirubin AST ALT Alkaline Phosphatase Troponin I 0.0530 NT-Pro-B Natriuret Pep Total Protein Albumin Globulin Albumin/Globulin Ratio Triglycerides Cholesterol LDL Cholesterol Direct HDL Cholesterol Assessment & Plan - Assessment and Plan (Free Text) Assessment: CAD WITH CHEST PAIN-CHEST PAIN FREE AT THE PRESENT TIME AND ALL TROPONINS ARE NORMAL HYPERTENSION HYPERLIPIDEMIA TYPE 2 DM Plan: CONTINUE BRILINTA, ASPIRIN, METOPROLOL, NITRATES, ATORVASTATIN, DIGOXIN AND METFORMEN COMPLIANCE WITH MEDICATIONS AND STOPPING SMOKING WERE DISCUSSED AND STRESSED TO THE PATIENT
[2018-08-13 12:38] VITALS: BP 131/73; PULSE 57; TEMP 98.7
[2018-08-13 17:10] VITALS: O2SAT 99
== END 2018-08-13 16:25 | disposition home or self-care (01) ==
LOC: H.ER 13:38 → H.ERHOLD 17:56 → H.TEL 21:16
PROVIDERS: ADMIT Hospitalist; ATTEND Hospitalist
DX: R07.9 Chest pain, unspecified (principal); I11.0 Hypertensive heart disease with heart failure; I50.22 Chronic systolic (congestive) heart failure; J43.9 Emphysema, unspecified; Z88.6 Allergy status to analgesic agent; Z88.0 Allergy status to penicillin; I25.10 Atherosclerotic heart disease of native coronary artery without angina pectoris; Z95.5 Presence of coronary angioplasty implant and graft; Z99.81 Dependence on supplemental oxygen; E78.00 Pure hypercholesterolemia, unspecified; E78.5 Hyperlipidemia, unspecified; G35 Multiple sclerosis; Z86.73 Personal history of transient ischemic attack (TIA), and cerebral infarction without residual deficits; F32.9 Major depressive disorder, single episode, unspecified; E11.9 Type 2 diabetes mellitus without complications; N40.0 Benign prostatic hyperplasia without lower urinary tract symptoms; F41.9 Anxiety disorder, unspecified; M19.90 Unspecified osteoarthritis, unspecified site; F17.210 Nicotine dependence, cigarettes, uncomplicated; R64 Cachexia; Z68.1 Body mass index [BMI] 19.9 or less, adult; D64.9 Anemia, unspecified; I25.2 Old myocardial infarction
CPT/HCPCS: 36415; 71046; 80048; 80053; 80061; 82948; 83036; 83880; 84484; 85025; 93005; 96374; 99285; G0378

== ENCOUNTER 2018-08-22 23:33 | Inpatient (IN) | payer MEDICARE ==
[2018-08-22 23:49] VITALS: BMI 19.5
--- NOTE | 2018-08-23 00:24 | ED PDOC ---
HPI: Chest Pain Time Seen by Provider: 08/22/18 23:51 Chief Complaint (Nursing): Chest Pain Chief Complaint (Provider): Chest Pain History Per: Patient History/Exam Limitations: no limitations Onset/Duration Of Symptoms: Days (x2) Current Symptoms Are (Timing): Better Additional Complaint(s): 72 year old male with pmHx of multiple sclerosis, coronary artery disease, di abetes, and chronic obstructive pulmonary disease, arrives to the emergency department via ambulance for an evaluation after "withdrawing" from Tramadol prescription 2 days ago. Patient states he experienced chest pain that radiated to his right arm, shoulder, and back. At present, patient reports resolution of chest pain. He denies nausea, vomiting, diarrhea, or decreased appetite. PCP: Dr. Maximo House Past Medical History Reviewed: Historical Data, Nursing Documentation, Vital Signs - Medical History PMH: Anemia, Anxiety, Arthritis, Asthma, Benign Prostatic Hyperplasia, CAD, C ardia Arrhythmia, CHF, COPD, CVA, Depression, Diabetes, Emphysema, Fractures (bilateral feet), HTN, Hypercholesterolemia, Hyperlipidemia, Multiple Sclerosis, Pneumonia, TIA Denies: Bronchitis, HIV, Chronic Kidney Disease - Surgical History Surgical History: Cholecystectomy, Coronary Stent (x3) Denies: CABG - Family History Family History: States: Unknown Family Hx, Diabetes - Social History Current smoker - smoking cessation education provided: Yes Alcohol: None Drugs: Denies - Home Medications Home Medications: Ambulatory Orders Medication Instructions Recorded Sertraline [Zoloft] 50 mg PO DAILY #30 tab 09/18/17 Tamsulosin [Flomax] 0.4 mg PO DAILY #30 cap 09/18/17 Nitroglycerin [Nitrostat SL Tab] 0.4 mg SL Q5MIN PRN 04/24/18 Aspirin [Ecotrin] 81 mg PO DAILY #100 tabec 04/30/18 Digoxin 0.125 mg PO DAILY 05/16/18 Isosorbide Mononitrate ER [Imdur 60 mg PO DAILY 05/16/18 ER] Lisinopril [Zestril] 10 mg PO DAILY 05/16/18 Melatonin [Melatin] 3 mg PO HS 05/16/18 Metoprolol Tartrate [Lopressor] 100 mg PO Q12 05/16/18 Ticagrelor [Brilinta] 90 mg PO Q12 05/16/18 traMADol [Ultram] 50 mg PO Q8H PRN 05/16/18 Atorvastatin [Lipitor] 20 mg PO HS 08/12/18 metFORMIN [glucOPHAGE] 500 mg PO DAILY 08/12/18 rOPINIRole [Requip] 0.25 mg PO BID 08/23/18 - Allergies Allergies/Adverse Reactions: Allergies Allergy/AdvReac Type Severity Reaction Status Date / Time codeine Allergy Intermediate HEADACHE Verified 08/22/18 23:49 ampicillin Allergy RASH Verified 08/22/18 23:49 Review of Systems ROS Statement: Except As Marked, All Systems Reviewed And Found Negative Cardiovascular: Positive for: Chest Pain (resolved) Gastrointestinal: Negative for: Nausea, Vomiting, Diarrhea, Other (decreased appetite) Musculoskeletal: Positive for: Shoulder Pain (right-sided), Arm Pain (right- sided), Back Pain (right-sided) Psych: Positive for: Withdrawal Physical Exam - Reviewed Nursing Documentation Reviewed: Yes Vital Signs Reviewed: Yes - Physical Exam Appears: Positive for: No Acute Distress (slightly dishelved) Head Exam: Positive for: ATRAUMATIC, NORMAL INSPECTION, NORMOCEPHALIC Skin: Positive for: Normal Color Eye Exam: Positive for: Normal appearance, EOMI, PERRL ENT: Positive for: Normal ENT Inspection Neck: Positive for: Normal Cardiovascular/Chest: Positive for: Regular Rate, Rhythm, Chest Non Tender Respiratory: Positive for: Normal Breath Sounds. Negative for: Wheezing, Respiratory Distress Gastrointestinal/Abdominal: Positive for: Normal Exam, Soft. Negative for: Tenderness Back: Positive for: Normal Inspection Extremity: Positive for: Other (bilateral ankles in brace secondary to Hx of MS). Negative for: Pedal Edema, Calf Tenderness Neurologic/Psych: Positive for: Alert, Oriented (x3). Negative for: Motor/Sensory Deficits, Aphasia - Laboratory Results Result Diagrams: 08/25/18 04:30 08/25/18 04:30 Medical Decision Making Medical Decision Making: Time: 3994 Initial Plan: work-up for chest pain of high risk patient. * EKG * Labs with troponin * CXR Time: 00:04 --EKG: irregular rhythm with PAC at sinus rhythm. Heart rate at 72 beats per minute. T-wave inversion in V3-V5. Right bundle branch block. Time: 0130 --Labs reviewed: (+) elevated troponin. Findings relayed to patient who is comfortable with admission to telemetry unit. Will repeat troponin at 0500. --------- Scribe Attestation: Documented by More Kimbrough, acting as a scribe for Kourtney Light MD. Provider Scribe Attestation: All medical record entries made by the Scribe were at my direction and personally dictated by me. I have reviewed the chart and agree that the record accurately reflects my personal performance of the history, physical exam, medical decision making, and the department course for this patient. I have also personally directed, reviewed, and agree with the discharge instructions and disposition. Disposition - Clinical Impression Clinical Impression: Chest pain, NSTEMI (non-ST elevated myocardial infarction) - Disposition Disposition Time: 01:30 Condition: GUARDED
[2018-08-23 01:06] LABS: BASO % 0.4 % (0.0-2.0); EOS # 0.4 K/uL (0.0-0.7); EOS % 5.2 % (0.0-4.0); HEMOGLOBIN 10.6 g/dL (12.0-18.0); LYMPH % 26.8 % (20.0-40.0); MEAN CELL VOLUME 92.8 fl (80.0-94.0); MEAN CORPUSCULAR HEMOGLOBIN 30.8 pg (27.0-31.0); MEAN CORPUSCULAR HGB CONC 33.2 g/dL (33.0-37.0); MONO # 0.7 K/uL (0.0-0.8); MONO % 8.7 % (0.0-10.0); NEUT # 4.5 K/uL (1.8-7.0); NEUT % 58.9 % (50.0-75.0); RBC 3.45 Mil/uL (4.40-5.90); RED CELL DISTRIBUTION WIDTH 14.1 % (11.5-14.5); WHITE BLOOD COUNT 7.6 K/uL (4.8-10.8)
[2018-08-23 01:13] LABS: BLOOD UREA NITROGEN 20 mg/dl (9-20); CALCIUM 9.4 mg/dL (8.4-10.2); GFR NON-AFRICAN AMERICAN > 60
[2018-08-23 01:38] LABS: INR 1.2; PROTHROMBIN TIME 13.2 Seconds (9.8-13.1)
[2018-08-23 01:41] LABS: PARTIAL THROMBOPLASTIN TIME 32.9 Seconds (25.6-37.1)
[2018-08-23] MEDS: Digoxin 125 mcg (0.125 mg) Tab PO SCH (08:39)
[2018-08-23] MEDS ORDERED: ROPINIROLE 0.25 MG PO SCH (09:00)
--- NOTE | 2018-08-23 10:26 | RAD ---
Date of service: 08/23/2018 PROCEDURE: CHEST RADIOGRAPH, 1 VIEW HISTORY: chest pain COMPARISON: Chest radiograph dated 08/12/2018. FINDINGS: LUNGS: Peripheral left lower lung atelectasis/scarring. No focal consolidation. PLEURA: No pneumothorax or pleural fluid seen. CARDIOVASCULAR: Aortic atherosclerotic calcifications. Cardiomediastinal silhouette stably enlarged. OSSEOUS STRUCTURES: Unchanged. VISUALIZED UPPER ABDOMEN: Right upper quadrant surgical clips redemonstrated. OTHER FINDINGS: None. IMPRESSION: No active disease.
--- NOTE | 2018-08-23 12:51 | CP.PCM.CON ---
History of Present Illness - History of Present Illness History of Present Illness: 72 year old male with known cad, ischemic cardiomyopathy , s/p AMI PTCA, multiple admissions for chest pain, Nonstemi's. Admitted with chest pain this am. Pt refuses cardiac catherization refused cath this am. Pt requesting Tramadol. Currently chest pain free in no distress. + troponin x2 with inferior lateral st-t changes. Past Patient History - Infectious Disease Hx of Infectious Diseases: None - Tetanus Immunizations Tetanus Immunization: Unknown - Past Medical History & Family History Past Medical History?: Yes - Past Social History Smoking Status: Light Smoker < 10 Cigarettes Daily - CARDIAC Hx Cardiac Disorders: Yes Hx Cardia Arrhythmia: Yes Hx Congestive Heart Failure: Yes Hx Hypercholesterolemia: Yes Hx Hypertension: Yes - PULMONARY Hx Respiratory Disorders: Yes Hx Asthma: Yes Hx Bronchitis: No Hx Chronic Obstructive Pulmonary Disease (COPD): Yes Hx Emphysema: Yes Hx Pneumonia: Yes - NEUROLOGICAL Hx Neurological Disorder: Yes Hx Multiple Sclerosis: Yes Hx Transient Ischemic Attacks (TIA): Yes - HEENT Hx HEENT Problems: Yes Hx Cataracts: Yes - RENAL Hx Chronic Kidney Disease: No - ENDOCRINE/METABOLIC Hx Endocrine Disorders: Yes Hx Diabetes Mellitus Type 2: Yes - HEMATOLOGICAL/ONCOLOGICAL Hx Blood Disorders: Yes Hx AIDS: No Hx Anemia: Yes Hx Human Immunodeficiency Virus (HIV): No - INTEGUMENTARY Hx Dermatological Problems: No - MUSCULOSKELETAL/RHEUMATOLOGICAL Hx Musculoskeletal Disorders: Yes Hx Arthritis: Yes Hx Falls: Yes Hx Fractures: Yes (bilateral feet) - GASTROINTESTINAL Hx Gastrointestinal Disorders: No - GENITOURINARY/GYNECOLOGICAL Hx Genitourinary Disorders: Yes Hx Prostate Problems: Yes (BPH) - PSYCHIATRIC Hx Psychophysiologic Disorder: Yes Hx Anxiety: Yes Hx Depression: Yes Hx Substance Use: No - SURGICAL HISTORY Hx Surgeries: Yes Hx Cholecystectomy: Yes Hx Coronary Artery Bypass Graft: No Hx Coronary Stent: Yes (x3) - ANESTHESIA Hx Anesthesia: Yes Hx Anesthesia Reactions: No Hx Malignant Hyperthermia: No Meds Allergies/Adverse Reactions: Allergies Allergy/AdvReac Type Severity Reaction Status Date / Time codeine Allergy Intermediate HEADACHE Verified 08/22/18 23:49 ampicillin Allergy RASH Verified 08/22/18 23:49 - Medications Medications: Current Medications Aspirin (Ecotrin) 81 mg PO DAILY [facility] Last Admin: 08/23/18 08:43 Dose: 81 mg Atorvastatin Calcium (Lipitor) 20 mg PO HS [facility] Digoxin (Digoxin) 0.125 mg PO DAILY [facility] Last Admin: 08/23/18 08:39 Dose: 0.125 mg Heparin Sodium (Porcine) (Heparin) 5,000 units SC Q8 [facility]; Protocol Last Admin: 08/23/18 08:44 Dose: 5,000 units Home Med (Melatonin [Melatin]) 3 mg PO HS [facility] Home Med (Ropinirole [Requip]) 0.25 mg PO BID [facility] Isosorbide Mononitrate (Imdur) 60 mg PO DAILY [facility] Last Admin: 08/23/18 08:48 Dose: 60 mg Lisinopril (Zestril) 10 mg PO DAILY [facility] Last Admin: 08/23/18 08:49 Dose: 10 mg Metformin HCl (Glucophage) 500 mg PO DAILY [facility] Last Admin: 08/23/18 08:44 Dose: 500 mg Metoprolol Tartrate (Lopressor) 100 mg PO Q12 [facility] Last Admin: 08/23/18 08:49 Dose: 100 mg Nitroglycerin (Nitrostat Sl Tab) 0.4 mg SL Q5M PRN PRN Reason: Pain, moderate (4-7) Sertraline HCl (Zoloft) 50 mg PO DAILY [facility] Last Admin: 08/23/18 08:49 Dose: 50 mg Tamsulosin HCl (Flomax) 0.4 mg PO DAILY [facility] Last Admin: 08/23/18 08:44 Dose: 0.4 mg Ticagrelor (Brilinta) 90 mg PO Q12 [facility] Last Admin: 08/23/18 10:58 Dose: 90 mg Tramadol HCl (Ultram) 50 mg PO Q8H PRN PRN Reason: Pain, moderate (4-7) Last Admin: 08/23/18 06:04 Dose: 50 mg Physical Exam - Head Exam Head Exam: NORMAL INSPECTION - Neck Exam Neck exam: Positive for: Normal Inspection - Respiratory Exam Respiratory Exam: Rhonchi - Cardiovascular Exam Cardiovascular Exam: REGULAR RHYTHM - GI/Abdominal Exam GI & Abdominal Exam: Normal Bowel Sounds - Extremities Exam Extremities exam: Positive for: normal inspection Results - Vital Signs Recent Vital Signs: Last Vital Signs Temp 97.6 F 08/23/18 11:53 Pulse 67 08/23/18 11:53 Resp 18 08/23/18 11:53 BP 135/71 08/23/18 11:53 Pulse Ox 99 08/23/18 11:53 - Labs Result Diagrams: 08/23/18 01:02 08/23/18 01:02 Labs: Laboratory Results - last 24 hr 08/23/18 08/23/18 08/23/18 01:02 01:02 01:02 WBC 7.6 RBC 3.45 L Hgb 10.6 L Hct 32.0 L MCV 92.8 MCH 30.8 MCHC 33.2 RDW 14.1 Plt Count 171 MPV 8.0 Neut % (Auto) 58.9 Lymph % (Auto) 26.8 [place] % (Auto) 8.7 Eos % (Auto) 5.2 H Baso % (Auto) 0.4 Neut # (Auto) 4.5 Lymph # (Auto) 2.0 [place] # (Auto) 0.7 Eos # (Auto) 0.4 Baso # (Auto) 0.0 PT 13.2 H INR 1.2 APTT 32.9 Sodium 136 Potassium 4.3 Chloride 96 L Carbon Dioxide 28 Anion Gap 16 BUN 20 Creatinine 1.0 Est GFR ( Amer) > 60 Est GFR (Non-Af Amer) > 60 Random Glucose 279 H Calcium 9.4 Troponin I 0.3490 H* 08/23/18 04:40 WBC RBC Hgb Hct MCV MCH MCHC RDW Plt Count MPV Neut % (Auto) Lymph % (Auto) [place] % (Auto) Eos % (Auto) Baso % (Auto) Neut # (Auto) Lymph # (Auto) [place] # (Auto) Eos # (Auto) Baso # (Auto) PT INR APTT Sodium Potassium Chloride Carbon Dioxide Anion Gap BUN Creatinine Est GFR ( Amer) Est GFR (Non-Af Amer) Random Glucose Calcium Troponin I 1.8300 H* Assessment & Plan - Assessment and Plan (Free Text) Assessment: 72 yo male nstemi , refusing definitive treatment for cad cardiac cath Currently stable On beta rufus, antiplatelet medications, ELINA-I Will treat medically and observe
--- NOTE | 2018-08-23 20:36 | HP ---
CHIEF COMPLAINT: Chest pain. HISTORY OF PRESENT ILLNESS: This is a 72-year-old male known case of coronary artery disease, diabetes, hypertension, COPD, BPH, anemia, anxiety, arthritis, asthma, CHF, CVA, depression, diabetes, elevated cholesterol, multiple sclerosis, TIA, who ran out of his tramadol and was not able to get his refills and started having chest pain, so the patient was brought to emergency room and was admitted for further management. REVIEW OF SYSTEMS: Positive for generalized malaise, weakness, fatigue, tired, and chest pain. Review of systems is otherwise negative for headache, dizziness, syncope, loss of consciousness, shortness of breath, nausea, vomiting, diarrhea, constipation, any new joint or extremity pain. Review of systems of all other organ system is unremarkable. PAST MEDICAL HISTORY: Significant for diabetes, hypertension, elevated cholesterol, coronary artery disease, benign prostatic hypertrophy, bronchial asthma, COPD, multiple sclerosis, and history of TIA. PAST SURGICAL HISTORY: Remarkable for coronary artery stenting for 3 times and cholecystectomy per surgical history. Otherwise it is unremarkable. PERSONAL HISTORY: The patient has a history of smoking, alcohol abuse, but no substance abuse. MEDICATIONS: The patient is on multiple medications, which include Zoloft, Flomax, sublingual nitro, Ecotrin, digoxin, , melatonin, Lopressor, Brilinta, Ultram, Lipitor, and metformin. ALLERGIES: THE PATIENT IS ALLERGIC TO CODEINE AND AMPICILLIN. FAMILY HISTORY: Noncontributory. PHYSICAL EXAMINATION: GENERAL: Well-built, well-nourished, chronically sick looking elderly male with nasal cannula. The patient in no acute distress. VITAL SIGNS: Temperature 98, pulse 60, respirations 19, blood pressure 156/74. HEENT: Pupils reacting to light. No JVD. No thyromegaly. No lymphadenopathy. No nystagmus. Normocephalic, atraumatic skull. HEART: S1 and S2, normal and regular. No significant murmur, gallop, or rub is heard. LUNGS: Shows good bilateral air exchange. No rales or rhonchi. ABDOMEN: Soft and nontender. No organomegaly. No fluid. Bowel sounds are plus and normal. GENITOURINARY: External genitalia is appropriate per the patient's age. EXTREMITIES: No edema. No calf swelling. No tenderness. No acute ischemia. . CENTRAL NERVOUS SYSTEM: Essentially unchanged and there is no sign of any acute gross focal motor or sensory or neurological deficits. DIAGNOSTIC DATA: Available diagnostic data reviewed. WBC 7.6, hemoglobin 10.6, hematocrit 32, platelets 171, PT 13.2, PTT 32.9. Sodium 136, potassium 4.3, chloride 96, bicarb 28, BUN 20, creatinine 1, calcium is 9.4. Troponin levels are 0.34 to 1.83. EKG did not reveal any acute ST-T changes. The patient's EKG is consistent with coronary artery disease. Chest x-ray is clear. ADMITTING IMPRESSION: Non-ST elevation acute myocardial infarction; coronary artery disease; hypertension; elevated cholesterol; diabetes type 2; chronic obstructive pulmonary disease, oxygen dependent; osteoarthritis; multiple sclerosis by history; and depression. PLAN: As ordered. Case and plan discussed with the patient at length. Telemetry monitoring does not reveal significant arrhythmias. Vito Carter MD
[2018-08-23] MEDS ORDERED: MELATONIN 3 MG PO SCH (22:00)
[2018-08-24 06:50] LABS: HEMOGLOBIN 11.4 g/dL (12.0-18.0); MEAN CELL VOLUME 93.2 fl (80.0-94.0); MEAN CORPUSCULAR HEMOGLOBIN 31.2 pg (27.0-31.0); MEAN CORPUSCULAR HGB CONC 33.5 g/dL (33.0-37.0); RBC 3.64 Mil/uL (4.40-5.90); RED CELL DISTRIBUTION WIDTH 14.6 % (11.5-14.5); WHITE BLOOD COUNT 7.6 K/uL (4.8-10.8)
[2018-08-24 07:14] LABS: ALB/GLOB RATIO 1.2 (1.0-2.1); ALBUMIN 3.9 g/dL (3.5-5.0); ALT/SGPT 34 U/L (21-72); AST/SGOT 31 U/L (17-59); BLOOD UREA NITROGEN 18 mg/dl (9-20); CALCIUM 9.2 mg/dL (8.4-10.2); GFR NON-AFRICAN AMERICAN 60
[2018-08-24] MEDS: Digoxin 125 mcg (0.125 mg) Tab PO SCH (09:24)
--- NOTE | 2018-08-24 10:08 | CARD ---
APPROVED REPORT Date of service: 08/22/2018 EKG Measurement Heart [id number] <Conclusion> Sinus rhythm with premature atrial complexes Right bundle branch block Left anterior fascicular block Bifascicular block Left ventricular hypertrophy with repolarization abnormality Abnormal ECG
--- NOTE | 2018-08-24 12:18 | PN ---
DATE: 08/24/2018 SUBJECTIVE: The patient is seen and examined. Interim events noted. Consults noted and appreciated. Cardiology intervention noted and appreciated. The patient remains in progressive care unit. Feels okay. Denies any chest pain or shortness of breath. PHYSICAL EXAMINATION: GENERAL: The patient is in no acute distress. VITAL SIGNS: Stable. HEART: S1 and S2, normal and regular. LUNGS: Good bilateral air exchange. ABDOMEN: Soft, nontender. EXTREMITIES: No edema. No calf swelling. No tenderness. No acute ischemia. CENTRAL NERVOUS SYSTEM: Essentially unchanged. DIAGNOSTIC DATA: Available diagnostic data reviewed. Telemetry monitoring does not show significant arrhythmias. ASSESSMENT AND PLAN: The patient refuses further cardiac workup. Understands the risks and consequences of same including but not limited to , but still refuses intervention, says he will rest a couple of days and he would be fine. The patient had refused the same with Cardiology as well. Plan as ordered. Vito Carter MD
[2018-08-25 05:36] LABS: HEMOGLOBIN 10.8 g/dL (12.0-18.0); MEAN CORPUSCULAR HEMOGLOBIN 30.6 pg (27.0-31.0); MEAN CORPUSCULAR HGB CONC 32.9 g/dL (33.0-37.0); RBC 3.52 Mil/uL (4.40-5.90); RED CELL DISTRIBUTION WIDTH 14.4 % (11.5-14.5); WHITE BLOOD COUNT 6.6 K/uL (4.8-10.8)
[2018-08-25 05:54] LABS: ALB/GLOB RATIO 1.2 (1.0-2.1); ALBUMIN 3.8 g/dL (3.5-5.0); ALT/SGPT 25 U/L (21-72); AST/SGOT 25 U/L (17-59); BLOOD UREA NITROGEN 17 mg/dl (9-20); CALCIUM 9.2 mg/dL (8.4-10.2); GFR NON-AFRICAN AMERICAN > 60
[2018-08-25] MEDS: Digoxin 125 mcg (0.125 mg) Tab PO SCH (08:23)
--- NOTE | 2018-08-25 09:16 | PN ---
DATE: 08/25/2018 SUBJECTIVE: The patient seen and examined. Interim events noted. Consults noted and appreciated. The patient remains in progressive care unit, on telemetry monitoring. The patient feels okay. Denies any chest pain or shortness of breath, but does complain of generalized weakness. Also worried about going home and not being able to do his ADLs due to weakness. The patient also refuses any further cardiac workup. PHYSICAL EXAMINATION: GENERAL: The patient is in no acute distress. VITAL SIGNS: Stable. HEART: S1 and S2, normal and regular. LUNGS: Good bilateral air exchange. ABDOMEN: Soft, nontender. EXTREMITIES: No edema. No calf swelling. No tenderness. No acute ischemia. CENTRAL NERVOUS SYSTEM: Essentially unchanged. DIAGNOSTIC DATA: Available diagnostic data reviewed. Telemetry monitoring does not show significant arrhythmias. ASSESSMENT AND PLAN: Overall, the patient's general medical condition is stable and improving. The patient might transitional care management. Plan as ordered. Case and plan discussed with patient. Vito Carter MD
--- NOTE | 2018-08-25 13:27 | CP.PCM.PN ---
Subjective - Date & Time of Evaluation Date of Evaluation: 08/25/18 Time of Evaluation: 13:22 - Subjective Subjective: pt doing well , no c/o of cp resting comfortably Objective - Vital Signs/Intake and Output Vital Signs (last 24 hours): Temp Pulse Resp BP Pulse Ox 98.1 F 62 18 96/57 L 97 08/25/18 12:38 08/25/18 12:38 08/25/18 12:38 08/25/18 12:38 08/25/18 12:38 - Medications Medications: Current Medications Acetaminophen (Tylenol 325mg Tab) 650 mg PO Q6 PRN PRN Reason: Pain, Mild (1-3) Last Admin: 08/24/18 21:20 Dose: 650 mg Aspirin (Ecotrin) 81 mg PO DAILY [facility] Last Admin: 08/25/18 08:24 Dose: 81 mg Atorvastatin Calcium (Lipitor) 20 mg PO HS [facility] Last Admin: 08/24/18 21:20 Dose: 20 mg Digoxin (Digoxin) 0.125 mg PO DAILY [facility] Last Admin: 08/25/18 08:23 Dose: 0.125 mg Docusate Sodium (Colace) 100 mg PO DAILY [facility] Last Admin: 08/25/18 08:23 Dose: 100 mg Heparin Sodium (Porcine) (Heparin) 5,000 units SC Q8 [facility]; Protocol Last Admin: 08/25/18 08:24 Dose: 5,000 units Home Med (Melatonin [Melatin]) 3 mg PO [facility] Isosorbide Mononitrate (Imdur) 60 mg PO DAILY [facility] Last Admin: 08/25/18 08:25 Dose: 60 mg Lisinopril (Zestril) 10 mg PO DAILY [facility] Last Admin: 08/25/18 08:26 Dose: 10 mg Metformin HCl (Glucophage) 500 mg PO DAILY [facility] Last Admin: 08/25/18 08:24 Dose: 500 mg Metoprolol Tartrate (Lopressor) 75 mg PO Q12 [facility] Last Admin: 08/25/18 08:27 Dose: Not Given Nitroglycerin (Nitrostat Sl Tab) 0.4 mg SL Q5M PRN PRN Reason: Pain, moderate (4-7) Sertraline HCl (Zoloft) 50 mg PO DAILY [facility] Last Admin: 08/25/18 08:26 Dose: 50 mg Tamsulosin HCl (Flomax) 0.4 mg PO DAILY [facility] Last Admin: 08/25/18 08:24 Dose: 0.4 mg Ticagrelor (Brilinta) 90 mg PO Q12 [facility] Last Admin: 08/25/18 08:22 Dose: 90 mg Tramadol HCl (Ultram) 50 mg PO Q8H PRN PRN Reason: Pain, moderate (4-7) Last Admin: 08/25/18 09:44 Dose: 50 mg - Labs Labs: 08/25/18 04:30 08/25/18 04:30 PT 13.2 Seconds (9.8-13.1) H 08/23/18 01:02 INR 1.2 08/23/18 01:02 APTT 32.9 Seconds (25.6-37.1) 08/23/18 01:02 - Neck Exam Neck Exam: Normal Inspection - Respiratory Exam Respiratory Exam: Clear to Ausculation Bilateral - Cardiovascular Exam Cardiovascular Exam: REGULAR RHYTHM - GI/Abdominal Exam GI & Abdominal Exam: Normal Bowel Sounds - Extremities Exam Extremities Exam: Normal Inspection Assessment and Plan - Assessment and Plan (Free Text) Assessment: pt stable no recurrent chest pain Can ambulate today and discharge in am if stable
[2018-08-26 04:52] VITALS: RESP 18
[2018-08-26 08:03] VITALS: TEMP 98.3
[2018-08-26] MEDS: Digoxin 125 mcg (0.125 mg) Tab PO SCH (08:26)
[2018-08-26 08:31] VITALS: PULSE 65
--- NOTE | 2018-08-26 08:49 | PN ---
DATE: 08/26/2018 SUBJECTIVE: The patient seen and examined. Interim events noted. Consults noted and appreciated. Cardiology followup and intervention noted and appreciated. The patient remains in progressive care unit on telemetry monitoring. Feels okay. Denies any chest pain or shortness of breath. Received his further cardiac workup. PHYSICAL EXAMINATION: GENERAL: The patient is in no acute distress. VITAL SIGNS: Stable. HEART: S1 and S2, normal and regular. LUNGS: Good bilateral air exchange. ABDOMEN: Soft, nontender. EXTREMITIES: No edema, no calf swelling, no tenderness. No acute ischemia. CENTRAL NERVOUS SYSTEM: Exam is essentially unchanged. DIAGNOSTIC DATA: Available diagnostic data reviewed. Telemetry monitoring does not show significant arrhythmias. ASSESSMENT AND PLAN: Overall, the patient is medically stable. Physical therapy evaluation is pending. Plan as ordered. Vito Carter MD
[2018-08-26 12:14] VITALS: BP 129/65; PULSE 75; O2SAT 98
--- NOTE | 2018-08-26 13:54 | PQF ---
PROVIDER RESPONSE TEXT: Hy of emphysema REVIEWER QUERY TEXT: Conflicting Documentation Clarification A hx. of Emphysema is documented in the ER record and the Cardiac consult. Please clarify if in agre ement with the diagnosis: -- Confirmed and current -- Ruled out -- Other, please specify H and P includes a hx of COPD The patient's Clinical Indicators include: --- Query created by: Elmira Mendieta on 08/26/2018 9:44 AM Electronically signed by: Vito Carter 08/26/2018 1:51 PM
--- NOTE | 2018-08-26 13:54 | PQF ---
PROVIDER RESPONSE TEXT: Diabetes with hyperglycemia REVIEWER QUERY TEXT: Diabetic Associated Manifestations Please specify any manifestations associated / due to diabetes Such as: --DM with hyperglycemia -- Diabetes with renal manifestation -- Diabetes with neurologic manifestation -- Diabetes with ophthalmic manifestation -- Diabetes with peripheral circulatory manifestation -- Other, please specify --OR: Disagree Serum glucose: 279->147->152 POC glucose:233 H and P: includes DM Type 2 -glucophage The patient's Clinical Indicators include: -- Query created by: Elmira Mendieta 08/25/2018 3:05 PM Electronically signed by: Vito Carter 08/26/2018 1:51 PM
--- NOTE | 2018-08-26 13:54 | PQF ---
PROVIDER RESPONSE TEXT: Chronic systolic chf REVIEWER QUERY TEXT: CHF Acuity and Type Congestive Heart Failure is documented in the Medical Record. Please document the type and acuity (in cludes probable or suspected) versus: No CHF: history only and not a chronic condition Such as: Type: -- Systolic -- Diastolic -- Combined -- Other, please specify Acuity: -- Acute -- Chronic -- Acute on chronic -- Other, please specify /2 CXR: Impression: No active disease. H and P: includes a hx. of CHF -digoxin PO daily The patient's Clinical Indicators include: --- Query created by: Elmira Mendieta on 08/25/2018 2:59 PM Electronically signed by: Vito Carter 08/26/2018 1:51 PM
== END 2018-08-26 18:00 | disposition home health service (06) | DRG 281 ==
LOC: H.ER 23:33 → H.ERHOLD 08-23 01:59 → H.TEL 08-23 04:25
PROVIDERS: ADMIT Internal Medicine; ATTEND Internal Medicine
PROC: 3E0F7GC Introduction of Other Therapeutic Substance into Respiratory Tract, Via Natural or Artificial Opening (ICD-10-PCS; principal; 2018-08-23)
DX: I21.4 Non-ST elevation (NSTEMI) myocardial infarction (principal); I50.22 Chronic systolic (congestive) heart failure; G35 Multiple sclerosis; I11.0 Hypertensive heart disease with heart failure; J43.9 Emphysema, unspecified; E11.65 Type 2 diabetes mellitus with hyperglycemia; I25.5 Ischemic cardiomyopathy; I25.10 Atherosclerotic heart disease of native coronary artery without angina pectoris; E78.5 Hyperlipidemia, unspecified; E78.00 Pure hypercholesterolemia, unspecified; D64.9 Anemia, unspecified; F41.9 Anxiety disorder, unspecified; F32.9 Major depressive disorder, single episode, unspecified; N40.0 Benign prostatic hyperplasia without lower urinary tract symptoms; M19.90 Unspecified osteoarthritis, unspecified site; Z53.29 Procedure and treatment not carried out because of patient's decision for other reasons; F17.210 Nicotine dependence, cigarettes, uncomplicated; Z95.5 Presence of coronary angioplasty implant and graft; Z99.81 Dependence on supplemental oxygen; Z86.73 Personal history of transient ischemic attack (TIA), and cerebral infarction without residual deficits; Z87.01 Personal history of pneumonia (recurrent); Z88.6 Allergy status to analgesic agent; Z88.0 Allergy status to penicillin; Z79.82 Long term (current) use of aspirin; Z79.84 Long term (current) use of oral hypoglycemic drugs

== ENCOUNTER 2018-08-26 22:39 | Inpatient (IN) | payer MEDICARE ==
[2018-08-26 22:39] VITALS: BMI 19.5
[2018-08-27 00:17] LABS: BASO # 0.1 K/uL (0.0-0.2); BASO % 0.9 % (0.0-2.0); EOS # 0.2 K/uL (0.0-0.7); EOS % 2.9 % (0.0-4.0); HEMOGLOBIN 10.4 g/dL (12.0-18.0); LYMPH # 1.1 K/uL (1.0-4.3); LYMPH % 15.1 % (20.0-40.0); MEAN CELL VOLUME 92.9 fl (80.0-94.0); MEAN CORPUSCULAR HEMOGLOBIN 31.2 pg (27.0-31.0); MEAN CORPUSCULAR HGB CONC 33.6 g/dL (33.0-37.0); MONO # 0.5 K/uL (0.0-0.8); MONO % 6.5 % (0.0-10.0); NEUT # 5.5 K/uL (1.8-7.0); NEUT % 74.6 % (50.0-75.0); NRBC % 0.1 % (0.0-0.0); RBC 3.32 Mil/uL (4.40-5.90); RED CELL DISTRIBUTION WIDTH 14.6 % (11.5-14.5); WHITE BLOOD COUNT 7.4 K/uL (4.8-10.8)
[2018-08-27 00:24] LABS: INR 1.1; PROTHROMBIN TIME 12.5 Seconds (9.8-13.1)
[2018-08-27 00:27] LABS: BLOOD UREA NITROGEN 20 mg/dl (9-20); GFR NON-AFRICAN AMERICAN > 60; PARTIAL THROMBOPLASTIN TIME 29.4 Seconds (25.6-37.1)
[2018-08-27 00:28] LABS: ALB/GLOB RATIO 1.3 (1.0-2.1); ALT/SGPT 28 U/L (21-72); AST/SGOT 27 U/L (17-59); CALCIUM 9.3 mg/dL (8.4-10.2)
--- NOTE | 2018-08-27 02:06 | ED PDOC ---
HPI: Chest Pain Time Seen by Provider: 08/26/18 22:52 Chief Complaint (Nursing): Chest Pain Chief Complaint (Provider): Chest Pain History Per: Patient History/Exam Limitations: no limitations Onset/Duration Of Symptoms: Days (x 2) Current Symptoms Are (Timing): Still Present Quality: "Pain" Associated Symptoms: denies: Nausea, Dyspnea, Diaphoresis Additional Complaint(s): 72 year old male with a history of HTN, CAD, hypercholesterolemia and CHF presents to the ED for evaluation of chest pain. Patient was discharged from this hospital earlier yesterday after a three day admission for a non- ST elevation myocardial infarction. He reports some shortness of breath, but felt better with the use of oxygen. Denies nausea, vomiting and diaphoresis PMD: [facility] - Risk Factors PE Risk Factors: Pos: Recent Hospitalization TAD Risk Factors: Pos: Hypertension Past Medical History Reviewed: Historical Data, Nursing Documentation, Vital Signs Vital Signs: Last Vital Signs Temp 98.3 F 08/26/18 22:41 Pulse 73 08/27/18 01:40 Resp 14 08/27/18 01:40 BP 138/85 08/27/18 01:40 Pulse Ox 100 08/27/18 01:40 MINERVA Report Viewed: Yes - Medical History PMH: Anemia, Anxiety, Arthritis, Asthma, Benign Prostatic Hyperplasia, CAD, Cardia Arrhythmia, CHF, COPD, CVA, Depression, Diabetes, Emphysema, Fractures (bilateral feet), HTN, Hypercholesterolemia, Hyperlipidemia, Multiple Sclerosis, Pneumonia, TIA Denies: Bronchitis, HIV, Chronic Kidney Disease - Surgical History Surgical History: Cholecystectomy, Coronary Stent (x3) Denies: CABG - Family History Family History: States: Unknown Family Hx, Diabetes - Social History Ex-Smoker (has not smoked in the last 12 months): Yes - Home Medications Home Medications: Ambulatory Orders Medication Instructions Recorded Sertraline [Zoloft] 50 mg PO DAILY #30 tab 09/18/17 Tamsulosin [Flomax] 0.4 mg PO DAILY #30 cap 09/18/17 Nitroglycerin [Nitrostat SL Tab] 0.4 mg SL Q5MIN PRN 04/24/18 Aspirin [Ecotrin] 81 mg PO DAILY #100 tabec 04/30/18 Digoxin 0.125 mg PO DAILY 05/16/18 Isosorbide Mononitrate ER [Imdur 60 mg PO DAILY 05/16/18 ER] Lisinopril [Zestril] 10 mg PO DAILY 05/16/18 Melatonin [Melatin] 3 mg PO HS 05/16/18 Metoprolol Tartrate [Lopressor] 100 mg PO Q12 05/16/18 Ticagrelor [Brilinta] 90 mg PO Q12 05/16/18 traMADol [Ultram] 50 mg PO Q8H PRN 05/16/18 Atorvastatin [Lipitor] 20 mg PO HS 08/12/18 metFORMIN [glucOPHAGE] 500 mg PO DAILY 08/12/18 rOPINIRole [Requip] 0.25 mg PO BID 08/23/18 Metoprolol Tartrate [Lopressor] 75 mg PO Q12 #60 tab 08/26/18 - Allergies Allergies/Adverse Reactions: Allergies Allergy/AdvReac Type Severity Reaction Status Date / Time codeine Allergy Intermediate HEADACHE Verified 08/26/18 22:47 ampicillin Allergy RASH Verified 08/26/18 22:47 Review of Systems ROS Statement: Except As Marked, All Systems Reviewed And Found Negative Constitutional: Negative for: Fever Cardiovascular: Positive for: Chest Pain Gastrointestinal: Negative for: Nausea, Vomiting Physical Exam - Reviewed Nursing Documentation Reviewed: Yes Vital Signs Reviewed: Yes - Physical Exam Appears: Positive for: Non-toxic, No Acute Distress Head Exam: Positive for: ATRAUMATIC, NORMAL INSPECTION, NORMOCEPHALIC Skin: Positive for: Normal Color, Warm, Dry Eye Exam: Positive for: Normal appearance, EOMI, PERRL Neck: Positive for: Normal, Painless ROM, Supple Cardiovascular/Chest: Positive for: Regular Rate, Rhythm. Negative for: Murmur Respiratory: Positive for: Normal Breath Sounds. Negative for: Respiratory Distress Gastrointestinal/Abdominal: Positive for: Normal Exam, Soft. Negative for: Tenderness Back: Positive for: Normal Inspection. Negative for: L CVA Tenderness, R CVA Tenderness Extremity: Positive for: Normal ROM. Negative for: Deformity Neurologic/Psych: Positive for: Alert, Oriented (x 3). Negative for: Olivia r/Sensory Deficits - Laboratory Results Result Diagrams: 08/26/18 23:48 08/26/18 23:48 Lab Results: PT 12.5 Seconds (9.8-13.1) 08/26/18 23:48 INR 1.1 08/26/18 23:48 APTT 29.4 Seconds (25.6-37.1) 08/26/18 23:48 Troponin I 0.5020 ng/mL (0.00-0.120) H* 08/26/18 23:48 Total Bilirubin 0.2 mg/dl (0.2-1.3) 08/26/18 23:48 AST 27 U/L (17-59) 08/26/18 23:48 ALT 28 U/L (21-72) 08/26/18 23:48 Alkaline Phosphatase 75 U/L (38-126) 08/26/18 23:48 Total Protein 7.1 G/DL (6.3-8.2) 08/26/18 23:48 Albumin 4.0 g/dL (3.5-5.0) 08/26/18 23:48 Globulin 3.1 gm/dL (2.2-3.9) 08/26/18 23:48 Albumin/Globulin Ratio 1.3 (1.0-2.1) 08/26/18 23:48 - ECG O2 Sat by Pulse Oximetry: 100 (RA) Pulse Ox Interpretation: Normal Medical Decision Making Medical Decision Makin:54 Impression: Chest pain in setting of risk factors and recent admission Initial Plan: --CBC --CMP --PTT --PT --CXR --Troponin 01:[address] Carter who will accept for admission Labs review no sign abnormlities with exception of elevated troponin Compared with one from admission three days ago does not indicate new ischemic event Scribe Attestation: Documented by Princess Bowman acting as a scribe for Omid Baca MD Provider Scribe Attestation: All medical record entries made by the Scribe were at my direction and personally dictated by me. I have reviewed the chart and agree that the record accurately reflects my personal performance of the history, physical exam, medical decision making, and the department course for this patient. I have also personally directed, reviewed, and agree with the discharge instructions and disposition. Disposition - Clinical Impression Clinical Impression: Chest pain - Disposition Disposition Time: 00:00 Condition: FAIR - Pt Status Changed To: Hospital Disposition Of: Observation
--- NOTE | 2018-08-27 06:36 | CP.PCM.HP ---
History of Present Illness - History of Present Illness History of Present Illness: 72 y/o male with history of multiple admissions for chest pain, [place], COPD, DM, HTN, CAD with 3 PCI ,arthritis, CHF , NSTEMI (Refused cath) and chronic anemia admitted to [facility] for evaluation and treatment of recurrent chest pain. Patient was recently d/c home 15 days ago after cleared by cardiology and primary team. Patient reports he was better after discharge. Patient presented to ER this time c/o 1 day hx of sharp right side side chest pain. Chest pain is radiating to right arm, 9/10 in severity, associated with diaphoresis. Denies any f/c/n/v/SOB, dizziness, palpitations or blurred vision. Patient has hx of chronic arthritis, including right shoulder. Allergies: Ampicillin, codeine PMH: Anemia, Anxiety, Arthritis,CAD, Cardiac Arrhythmia, CHF, COPD, DM II; Emphysema, Fractures (bilateral feet), HTN, HLD Medications : see med rec Surgeries : Cholecystectomy, Coronary Stent (x3); Cataract surgery Social history : lives in [place] alone, quit smoking for the duration of rehab stay and now after returning home has been smoking very rarely , No illegal drug use; No Alcohol Family history ; None PMD ; Dr. House ROS ; 10 point review of system negative except above Code status : full Present on Admission - Present on Admission Any Indicators Present on Admission: No History of Uncontrolled Diabetes: Yes Past Patient History - Infectious Disease Hx of Infectious Diseases: None - Tetanus Immunizations Tetanus Immunization: Unknown - Past Medical History & Family History Past Medical History?: Yes - Past Social History Smoking Status: Current Some Days Smoker - CARDIAC Hx Cardia Arrhythmia: Yes Hx Congestive Heart Failure: Yes Hx Hypercholesterolemia: Yes Hx Hypertension: Yes - PULMONARY Hx Asthma: Yes Hx Bronchitis: No Hx Chronic Obstructive Pulmonary Disease (COPD): Yes Hx Emphysema: Yes Hx Pneumonia: Yes - NEUROLOGICAL Hx Multiple Sclerosis: Yes Hx Transient Ischemic Attacks (TIA): Yes - HEENT Hx HEENT Problems: Yes - RENAL Hx Chronic Kidney Disease: No - ENDOCRINE/METABOLIC Hx Endocrine Disorders: Yes - HEMATOLOGICAL/ONCOLOGICAL Hx Anemia: Yes Hx Human Immunodeficiency Virus (HIV): No - INTEGUMENTARY Hx Dermatological Problems: No - MUSCULOSKELETAL/RHEUMATOLOGICAL Hx Arthritis: Yes Hx Falls: Yes Hx Fractures: Yes (bilateral feet) - GASTROINTESTINAL Hx Gastrointestinal Disorders: No - GENITOURINARY/GYNECOLOGICAL Hx Genitourinary Disorders: Yes - PSYCHIATRIC Hx Anxiety: Yes Hx Depression: Yes - SURGICAL HISTORY Hx Cholecystectomy: Yes Hx Coronary Artery Bypass Graft: No Hx Coronary Stent: Yes (x3) - ANESTHESIA Hx Anesthesia: Yes Hx Anesthesia Reactions: No Hx Malignant Hyperthermia: No Meds Allergies/Adverse Reactions: Allergies Allergy/AdvReac Type Severity Reaction Status Date / Time codeine Allergy Intermediate HEADACHE Verified 08/26/18 22:47 ampicillin Allergy RASH Verified 08/26/18 22:47 Physical Exam - Constitutional Appears: Non-toxic, No Acute Distress, Cachectic, Chronically Ill - Head Exam Head Exam: NORMAL INSPECTION - Eye Exam Eye Exam: Normal appearance, PERRL Pupil Exam: NORMAL ACCOMODATION - ENT Exam ENT Exam: Mucous Membranes Moist - Neck Exam Neck exam: Positive for: Full Rom, Normal Inspection - Respiratory Exam Respiratory Exam: Clear to Auscultation Bilateral, NORMAL BREATHING PATTERN. absent: Accessory Muscle Use, Wheezes - Cardiovascular Exam Cardiovascular Exam: REGULAR RHYTHM, RRR, +S1, +S2 - GI/Abdominal Exam GI & Abdominal Exam: Normal Bowel Sounds, Soft. absent: Tenderness - Extremities Exam Extremities exam: Positive for: normal inspection. Negative for: tenderness - Back Exam Back exam: absent: CVA tenderness (L), CVA tenderness (R) - Neurological Exam Neurological exam: Alert, CN II-XII Intact, Oriented x3 - Psychiatric Exam Psychiatric exam: Normal Affect - Skin Skin Exam: Normal Color Results - Vital Signs Recent Vital Signs: Last Vital Signs Temp 97.9 F 08/27/18 05:09 Pulse 71 08/27/18 05:09 Resp 18 08/27/18 05:09 BP 136/83 08/27/18 05:09 Pulse Ox 95 08/27/18 05:09 - Labs Result Diagrams: 08/26/18 23:48 08/26/18 23:48 Labs: Laboratory Results - last 24 hr 08/26/18 08/26/18 08/26/18 23:48 23:48 23:48 WBC 7.4 RBC 3.32 L Hgb 10.4 L Hct 30.9 L MCV 92.9 MCH 31.2 H MCHC 33.6 RDW 14.6 H Plt Count 168 MPV 8.0 Neut % (Auto) 74.6 Lymph % (Auto) 15.1 L [place] % (Auto) 6.5 Eos % (Auto) 2.9 Baso % (Auto) 0.9 Neut # (Auto) 5.5 Lymph # (Auto) 1.1 [place] # (Auto) 0.5 Eos # (Auto) 0.2 Baso # (Auto) 0.1 PT 12.5 INR 1.1 APTT 29.4 Sodium 139 Potassium 4.1 Chloride 96 L Carbon Dioxide 26 Anion Gap 21 H BUN 20 Creatinine 1.0 Est GFR ( Amer) > 60 Est GFR (Non-Af Amer) > 60 POC Glucose (mg/dL) Random Glucose 226 H Calcium 9.3 Total Bilirubin 0.2 AST 27 ALT 28 Alkaline Phosphatase 75 Troponin I 0.5020 H* Total Protein 7.1 Albumin 4.0 Globulin 3.1 Albumin/Globulin Ratio 1.3 08/27/18 05:21 WBC RBC Hgb Hct MCV MCH MCHC RDW Plt Count MPV Neut % (Auto) Lymph % (Auto) [place] % (Auto) Eos % (Auto) Baso % (Auto) Neut # (Auto) Lymph # (Auto) [place] # (Auto) Eos # (Auto) Baso # (Auto) PT INR APTT Sodium Potassium Chloride Carbon Dioxide Anion Gap BUN Creatinine Est GFR ( Amer) Est GFR (Non-Af Amer) POC Glucose (mg/dL) 143 H Random Glucose Calcium Total Bilirubin AST ALT Alkaline Phosphatase Troponin I Total Protein Albumin Globulin Albumin/Globulin Ratio Assessment & Plan - Assessment and Plan (Free Text) Assessment: A/P: 72 y/o male with history of multiple admissions for chest pain, [place], COPD, DM, HTN, CAD with 3 PCI ,arthritis, CHF , NSTEMI (Refused cath) and chronic anemia admitted to [facility] for evaluation and treatment of recurrent chest pain. Recurrent chest pain, History of NSTEMI, r/o ACS -Acute on Chronic -Admit to tele -EKG reviewed: Abnormal -Chest X-Ray reviewed by me: no acute changes, f/u official read -Troponin x1, elevated 0.50 but going down from 32 Trop 1.83 -ASA 81 QD -Brilinta 90mg q12h -Nitrostat PRN chest pain -C/w pain management -C/w NC O2 to keep Spo2 >92% -Consult cardio, f/u recommendations -F/u Trop -Continue tele monitoring Chronic Arthritis -C/w pain management CAD -Isosorbide [place] 60 PO daily -C/w ASA, Statin, BB and ELINA-I Systolic CHF -Last echo in 12/2017 shows EF =20 with LVH -Continue Home medication DM -chronic -Last A1C 8.1 on 07/2018 -C/w Metformin -Sliding scale -Hypoglycemia protocol COPD -Continue Spiriva 18 QD -Ox 2 L nc PRN BPH -Flomax 0.4 mg QD Anxiety/depression -zoloft 50 PO QD DVT prophylaxis -Brilinta and Heparin Code Status -Full code
[2018-08-27] MEDS ORDERED: Dextrose 50% SYRINGE Inj (50 ml) IV PRN (07:26)
[2018-08-27] MEDS ORDERED: Glucagon Recombinant 1 mg Inj IM PRN (07:26)
[2018-08-27 07:46] LABS: HEMOGLOBIN 10.8 g/dL (12.0-18.0); MEAN CELL VOLUME 92.1 fl (80.0-94.0); MEAN CORPUSCULAR HEMOGLOBIN 31.3 pg (27.0-31.0); RBC 3.43 Mil/uL (4.40-5.90); RED CELL DISTRIBUTION WIDTH 14.6 % (11.5-14.5); WHITE BLOOD COUNT 6.4 K/uL (4.8-10.8)
[2018-08-27 07:53] LABS: ALB/GLOB RATIO 1.3 (1.0-2.1); ALT/SGPT 28 U/L (21-72); AST/SGOT 50 U/L (17-59); BLOOD UREA NITROGEN 17 mg/dl (9-20); CALCIUM 9.6 mg/dL (8.4-10.2); GFR NON-AFRICAN AMERICAN > 60
--- NOTE | 2018-08-27 08:23 | RAD ---
Date of service: 08/26/2018 HISTORY: chest pain COMPARISON: 08/23/2017 FINDINGS: LUNGS: No active pulmonary disease. PLEURA: No significant pleural effusion identified, no pneumothorax apparent. CARDIOVASCULAR: There is presence of aortic atherosclerotic calcification on x-ray. Mild cardiomegaly-similar. Tortuous/unfolded thoracic aorta No pulmonary vascular congestion. OSSEOUS STRUCTURES: Thoracic spondylosis-similar bilateral shoulder arthrosis VISUALIZED UPPER ABDOMEN: Right upper quadrant post cholecystectomy clips. Probable pancreatic calcifications-chronic pancreatitis inferred. OTHER FINDINGS: None. IMPRESSION: No active disease. No interval pathology noted.
[2018-08-27] MEDS: Digoxin 125 mcg (0.125 mg) Tab PO SCH (08:35)
[2018-08-27] MEDS: Insulin Lispro (humaLOG) 100 Units/ml Inj SC SCH ×4 (08:37→22:00)
[2018-08-27] MEDS ORDERED: ROPINIROLE 0.25 MG PO SCH (09:00)
--- NOTE | 2018-08-27 11:41 | CP.PCM.CON ---
History of Present Illness - History of Present Illness History of Present Illness: 72 year old male with multiple admissions for chest pain recent NSTEMI , pt refused definitive treatment of his CAD 4 days ago and despite recurrent chest pain and + troponin suggestive of myocardial ischemia , refuses cardiac catheriz ation once again. Pt was discharged with resolution of his chest pain on maximal medical therapy without definitive treatment via cardiac catherization. He appears comfortable at rest without chest pain or dyspnea. Past Patient History - Infectious Disease Hx of Infectious Diseases: None - Tetanus Immunizations Tetanus Immunization: Unknown - Past Medical History & Family History Past Medical History?: Yes - Past Social History Smoking Status: Current Some Days Smoker - CARDIAC Hx Cardia Arrhythmia: Yes Hx Congestive Heart Failure: Yes Hx Hypercholesterolemia: Yes Hx Hypertension: Yes - PULMONARY Hx Asthma: Yes Hx Bronchitis: No Hx Chronic Obstructive Pulmonary Disease (COPD): Yes Hx Emphysema: Yes Hx Pneumonia: Yes - NEUROLOGICAL Hx Multiple Sclerosis: Yes Hx Transient Ischemic Attacks (TIA): Yes - HEENT Hx HEENT Problems: Yes - RENAL Hx Chronic Kidney Disease: No - ENDOCRINE/METABOLIC Hx Endocrine Disorders: Yes - HEMATOLOGICAL/ONCOLOGICAL Hx Anemia: Yes Hx Human Immunodeficiency Virus (HIV): No - INTEGUMENTARY Hx Dermatological Problems: No - MUSCULOSKELETAL/RHEUMATOLOGICAL Hx Arthritis: Yes Hx Falls: Yes Hx Fractures: Yes (bilateral feet) - GASTROINTESTINAL Hx Gastrointestinal Disorders: No - GENITOURINARY/GYNECOLOGICAL Hx Genitourinary Disorders: Yes - PSYCHIATRIC Hx Anxiety: Yes Hx Depression: Yes - SURGICAL HISTORY Hx Cholecystectomy: Yes Hx Coronary Artery Bypass Graft: No Hx Coronary Stent: Yes (x3) - ANESTHESIA Hx Anesthesia: Yes Hx Anesthesia Reactions: No Hx Malignant Hyperthermia: No Meds Allergies/Adverse Reactions: Allergies Allergy/AdvReac Type Severity Reaction Status Date / Time codeine Allergy Intermediate HEADACHE Verified 08/26/18 22:47 ampicillin Allergy RASH Verified 08/26/18 22:47 - Medications Medications: Current Medications Acetaminophen (Tylenol 325mg Tab) 650 mg PO Q6 PRN PRN Reason: Pain, Mild (1-3) Last Admin: 08/27/18 08:41 Dose: 650 mg Aspirin (Ecotrin) 81 mg PO DAILY [facility] Last Admin: 08/27/18 08:36 Dose: 81 mg Atorvastatin Calcium (Lipitor) 20 mg PO HS [facility] Dextrose (Dextrose 50% Inj) 0 ml IV STAT PRN; Protocol PRN Reason: Hypoglycemia Protocol Dextrose (Glutose 15) 0 gm PO ONCE PRN; Protocol PRN Reason: Hypoglycemia Protocol Digoxin (Digoxin) 0.125 mg PO DAILY [facility] Last Admin: 08/27/18 08:35 Dose: 0.125 mg Glucagon (Glucagen Diagnostic Kit) 0 mg IM STAT PRN; Protocol PRN Reason: Hypoglycemia Protocol Heparin Sodium (Porcine) (Heparin) 5,000 units SC Q8 [facility]; Protocol Last Admin: 08/27/18 08:36 Dose: 5,000 units Home Med (Ropinirole [Requip]) 0.25 mg PO BID [facility] Insulin Human Lispro (Humalog) 0 units SC ACHS [facility]; Protocol Last Admin: 08/27/18 08:37 Dose: Not Given Isosorbide Mononitrate (Imdur) 60 mg PO DAILY [facility] Last Admin: 08/27/18 08:36 Dose: 60 mg Lisinopril (Zestril) 10 mg PO DAILY [facility] Last Admin: 08/27/18 08:36 Dose: 10 mg Metformin HCl (Glucophage) 500 mg PO DAILY [facility] Last Admin: 08/27/18 08:36 Dose: 500 mg Metoprolol Tartrate (Lopressor) 75 mg PO Q12 [facility] Last Admin: 08/27/18 08:40 Dose: 75 mg Nitroglycerin (Nitrostat Sl Tab) 0.4 mg SL Q5MIN PRN PRN Reason: chest pain Sertraline HCl (Zoloft) 50 mg PO DAILY [facility] Last Admin: 08/27/18 08:35 Dose: 50 mg Tamsulosin HCl (Flomax) 0.4 mg PO DAILY [facility] Last Admin: 08/27/18 08:36 Dose: 0.4 mg Ticagrelor (Brilinta) 90 mg PO Q12 [facility] Last Admin: 08/27/18 08:35 Dose: 90 mg Tramadol HCl (Ultram) 50 mg PO Q6 PRN PRN Reason: Pain, severe (8-10) Physical Exam - Neck Exam Neck exam: Positive for: Normal Inspection - Respiratory Exam Respiratory Exam: Clear to Auscultation Bilateral - Cardiovascular Exam Cardiovascular Exam: REGULAR RHYTHM - GI/Abdominal Exam GI & Abdominal Exam: Normal Bowel Sounds - Extremities Exam Extremities exam: Positive for: normal inspection Results - Vital Signs Recent Vital Signs: Last Vital Signs Temp 98.3 F 08/27/18 08:11 Pulse 60 08/27/18 09:00 Resp 18 08/27/18 08:11 BP 133/83 08/27/18 08:40 Pulse Ox 97 08/27/18 08:11 - Labs Result Diagrams: 08/27/18 07:03 08/27/18 07:00 Labs: Laboratory Results - last 24 hr 08/26/18 08/26/18 08/26/18 23:48 23:48 23:48 WBC 7.4 RBC 3.32 L Hgb 10.4 L Hct 30.9 L MCV 92.9 MCH 31.2 H MCHC 33.6 RDW 14.6 H Plt Count 168 MPV 8.0 Neut % (Auto) 74.6 Lymph % (Auto) 15.1 L [place] % (Auto) 6.5 Eos % (Auto) 2.9 Baso % (Auto) 0.9 Neut # (Auto) 5.5 Lymph # (Auto) 1.1 [place] # (Auto) 0.5 Eos # (Auto) 0.2 Baso # (Auto) 0.1 PT 12.5 INR 1.1 APTT 29.4 Sodium 139 Potassium 4.1 Chloride 96 L Carbon Dioxide 26 Anion Gap 21 H BUN 20 Creatinine 1.0 Est GFR ( Amer) > 60 Est GFR (Non-Af Amer) > 60 POC Glucose (mg/dL) Random Glucose 226 H Calcium 9.3 Total Bilirubin 0.2 AST 27 ALT 28 Alkaline Phosphatase 75 Troponin I 0.5020 H* Total Protein 7.1 Albumin 4.0 Globulin 3.1 Albumin/Globulin Ratio 1.3 08/27/18 08/27/18 08/27/18 05:21 07:00 07:03 WBC 6.4 RBC 3.43 L Hgb 10.8 L Hct 31.6 L MCV 92.1 MCH 31.3 H MCHC 34.0 RDW 14.6 H Plt Count 165 MPV Neut % (Auto) Lymph % (Auto) [place] % (Auto) Eos % (Auto) Baso % (Auto) Neut # (Auto) Lymph # (Auto) [place] # (Auto) Eos # (Auto) Baso # (Auto) PT INR APTT Sodium 140 Potassium 4.2 Chloride 99 Carbon Dioxide 28 Anion Gap 17 BUN 17 Creatinine 0.9 Est GFR ( Amer) > 60 Est GFR (Non-Af Amer) > 60 POC Glucose (mg/dL) 143 H Random Glucose 132 H Calcium 9.6 Total Bilirubin 0.5 AST 50 ALT 28 Alkaline Phosphatase 77 Troponin I 6.8700 H* Total Protein 7.1 Albumin 4.0 Globulin 3.1 Albumin/Globulin Ratio 1.3 08/27/18 10:55 WBC RBC Hgb Hct MCV MCH MCHC RDW Plt Count MPV Neut % (Auto) Lymph % (Auto) [place] % (Auto) Eos % (Auto) Baso % (Auto) Neut # (Auto) Lymph # (Auto) [place] # (Auto) Eos # (Auto) Baso # (Auto) PT INR APTT Sodium Potassium Chloride Carbon Dioxide Anion Gap BUN Creatinine Est GFR ( Amer) Est GFR (Non-Af Amer) POC Glucose (mg/dL) 180 H Random Glucose Calcium Total Bilirubin AST ALT Alkaline Phosphatase Troponin I Total Protein Albumin Globulin Albumin/Globulin Ratio Assessment & Plan - Assessment and Plan (Free Text) Assessment: 72 year old male with known CAD, ischemic cardiomypathy, recurrent NSTEMI, EKG suggestive of anterior lateral ischemia, refusing definitive treatment with cardiac catherization. Would continue medical therapy pt currently chest pain free and observe on telemetry.
--- NOTE | 2018-08-27 13:36 | CARD ---
APPROVED REPORT Date of service: 08/27/2018 EKG Measurement Heart [id number] <Conclusion> Sinus bradycardia Left axis deviation Left ventricular hypertrophy with QRS widening and repolarization abnormality Inferior infarct, age undetermined ST & T wave abnormality, possible anterior ischemia Abnormal ECG
--- NOTE | 2018-08-27 15:16 | CARD ---
APPROVED REPORT Date of service: 08/26/2018 EKG Measurement Heart [id number] <Conclusion> Sinus rhythm with premature atrial complexes Left axis deviation Nonspecific intraventricular block Poor R wave progression in Precordial leads T wave abnormality, consider lateral ischemia Abnormal ECG
--- NOTE | 2018-08-28 07:27 | CP.PCM.PN ---
Subjective - Date & Time of Evaluation Date of Evaluation: 08/28/18 Time of Evaluation: 07:00 - Subjective Subjective: Patient seen and examined this morning at bedside with Dr. Carter. NAD, denies any chest pain, SOB, palpitations or dizziness. Tolerating PO intake. troponin 6.8700 on 08/27/18 Patient was explained about cardiac interventions and necessity in great detail. Patient understands risks associated with and with out any interventions, verbalizes and refuses any cardiac interventions. Objective - Vital Signs/Intake and Output Vital Signs (last 24 hours): Temp Pulse Resp BP Pulse Ox 98.0 F 65 16 132/65 98 08/28/18 05:46 08/28/18 05:46 08/28/18 05:46 08/28/18 05:46 08/28/18 05:46 - Medications Medications: Current Medications Acetaminophen (Tylenol 325mg Tab) 650 mg PO Q6 PRN PRN Reason: Pain, Mild (1-3) Last Admin: 08/27/18 13:45 Dose: 650 mg Aspirin (Ecotrin) 81 mg PO DAILY [facility] Last Admin: 08/27/18 08:36 Dose: 81 mg Atorvastatin Calcium (Lipitor) 20 mg PO HS [facility] Last Admin: 08/27/18 21:08 Dose: 20 mg Dextrose (Dextrose 50% Inj) 0 ml IV STAT PRN; Protocol PRN Reason: Hypoglycemia Protocol Dextrose (Glutose 15) 0 gm PO ONCE PRN; Protocol PRN Reason: Hypoglycemia Protocol Digoxin (Digoxin) 0.125 mg PO DAILY [facility] Last Admin: 08/27/18 08:35 Dose: 0.125 mg Glucagon (Glucagen Diagnostic Kit) 0 mg IM STAT PRN; Protocol PRN Reason: Hypoglycemia Protocol Heparin Sodium (Porcine) (Heparin) 5,000 units SC Q8 [facility]; Protocol Last Admin: 08/28/18 01:28 Dose: 5,000 units Home Med (Ropinirole [Requip]) 0.25 mg PO BID [facility] Insulin Human Lispro (Humalog) 0 units SC ACHS [facility]; Protocol Last Admin: 08/27/18 22:00 Dose: Not Given Isosorbide Mononitrate (Imdur) 60 mg PO DAILY [facility] Last Admin: 08/27/18 08:36 Dose: 60 mg Lisinopril (Zestril) 10 mg PO DAILY [facility] Last Admin: 08/27/18 08:36 Dose: 10 mg Metformin HCl (Glucophage) 500 mg PO DAILY [facility] Last Admin: 08/27/18 08:36 Dose: 500 mg Metoprolol Tartrate (Lopressor) 75 mg PO Q12 [facility] Last Admin: 08/27/18 21:10 Dose: Not Given Nitroglycerin (Nitrostat Sl Tab) 0.4 mg SL Q5MIN PRN PRN Reason: chest pain Sertraline HCl (Zoloft) 50 mg PO DAILY [facility] Last Admin: 08/27/18 08:35 Dose: 50 mg Tamsulosin HCl (Flomax) 0.4 mg PO DAILY [facility] Last Admin: 08/27/18 08:36 Dose: 0.4 mg Ticagrelor (Brilinta) 90 mg PO Q12 [facility] Last Admin: 08/27/18 21:08 Dose: 90 mg Tramadol HCl (Ultram) 50 mg PO Q6 PRN PRN Reason: Pain, severe (8-10) Last Admin: 08/28/18 06:55 Dose: 50 mg - Labs Labs: 08/27/18 07:03 08/27/18 07:00 PT 12.5 Seconds (9.8-13.1) 08/26/18 23:48 INR 1.1 08/26/18 23:48 APTT 29.4 Seconds (25.6-37.1) 08/26/18 23:48 - Constitutional Appears: No Acute Distress - Head Exam Head Exam: NORMAL INSPECTION - Eye Exam Eye Exam: Normal appearance Pupil Exam: NORMAL ACCOMODATION - ENT Exam ENT Exam: Mucous Membranes Moist - Neck Exam Neck Exam: Normal Inspection - Respiratory Exam Respiratory Exam: Clear to Ausculation Bilateral, NORMAL BREATHING PATTERN. absent: Wheezes - Cardiovascular Exam Cardiovascular Exam: REGULAR RHYTHM, +S1, +S2 - GI/Abdominal Exam GI & Abdominal Exam: Soft, Normal Bowel Sounds. absent: Tenderness - Extremities Exam Extremities Exam: absent: Tenderness - Back Exam Back Exam: NORMAL INSPECTION - Neurological Exam Neurological Exam: Alert, Awake, Oriented x3 - Psychiatric Exam Psychiatric exam: Normal Affect - Skin Skin Exam: Normal Color Assessment and Plan - Assessment and Plan (Free Text) Assessment: A/P: 72 y/o male with history of multiple admissions for chest pain, [place], COPD, DM, HTN, CAD with 3 PCI ,arthritis, CHF , NSTEMI (Refused cath) and chronic anemia admitted to [facility] for evaluation and treatment of recurrent chest pain. Recurrent chest pain, History of NSTEMI, r/o ACS -Acute on Chronic -Cardiac consult, recommendations appreciated -troponin 6.8700 on 08/27/18 -ASA 81 QD -Brilinta 90mg q12h -Nitrostat PRN chest pain -C/w pain management -C/w NC O2 to keep Spo2 >92% -Patient was explained about cardiac interventions and necessity in great detail. Patient understands risks associated with and with out any interventions, verbalizes and refuses any cardiac interventions. Chronic Arthritis -C/w pain management CAD -Isosorbide [place] 60 PO daily -C/w ASA, Statin, BB and ELINA-I Systolic CHF -Last echo in 12/2017 shows EF =20 with LVH -Continue Home medication DM -chronic -Last A1C 8.1 on 07/2018 -C/w Metformin -Sliding scale -Hypoglycemia protocol COPD -Continue Spiriva 18 QD -Ox 2 L nc PRN BPH -Flomax 0.4 mg QD Anxiety/depression -zoloft 50 PO QD DVT prophylaxis -Brilinta and Heparin Code Status -Full code
[2018-08-28] MEDS: Digoxin 125 mcg (0.125 mg) Tab PO SCH (08:39)
[2018-08-28] MEDS: Insulin Lispro (humaLOG) 100 Units/ml Inj SC SCH ×4 (08:40→22:00)
[2018-08-28 10:52] LABS: HEMOGLOBIN 10.5 g/dL (12.0-18.0); MEAN CELL VOLUME 93.5 fl (80.0-94.0); MEAN CORPUSCULAR HEMOGLOBIN 31.3 pg (27.0-31.0); MEAN CORPUSCULAR HGB CONC 33.5 g/dL (33.0-37.0); RBC 3.36 Mil/uL (4.40-5.90); RED CELL DISTRIBUTION WIDTH 14.8 % (11.5-14.5); WHITE BLOOD COUNT 5.9 K/uL (4.8-10.8)
[2018-08-28 11:09] LABS: BLOOD UREA NITROGEN 15 mg/dl (9-20); CALCIUM 9.3 mg/dL (8.4-10.2); GFR NON-AFRICAN AMERICAN > 60
--- NOTE | 2018-08-28 12:36 | CP.PCM.PN ---
Subjective - Date & Time of Evaluation Date of Evaluation: 08/28/18 Time of Evaluation: 12:34 - Subjective Subjective: no cp resting comfortably Objective - Vital Signs/Intake and Output Vital Signs (last 24 hours): Temp Pulse Resp BP Pulse Ox 97.9 F 67 18 116/57 L 96 08/28/18 11:58 08/28/18 11:58 08/28/18 11:58 08/28/18 11:58 08/28/18 11:58 - Medications Medications: Current Medications Acetaminophen (Tylenol 325mg Tab) 650 mg PO Q6 PRN PRN Reason: Pain, Mild (1-3) Last Admin: 08/27/18 13:45 Dose: 650 mg Aspirin (Ecotrin) 81 mg PO DAILY [facility] Last Admin: 08/28/18 08:39 Dose: 81 mg Atorvastatin Calcium (Lipitor) 20 mg PO HS [facility] Last Admin: 08/27/18 21:08 Dose: 20 mg Dextrose (Dextrose 50% Inj) 0 ml IV STAT PRN; Protocol PRN Reason: Hypoglycemia Protocol Dextrose (Glutose 15) 0 gm PO ONCE PRN; Protocol PRN Reason: Hypoglycemia Protocol Digoxin (Digoxin) 0.125 mg PO DAILY [facility] Last Admin: 08/28/18 08:39 Dose: 0.125 mg Glucagon (Glucagen Diagnostic Kit) 0 mg IM STAT PRN; Protocol PRN Reason: Hypoglycemia Protocol Heparin Sodium (Porcine) (Heparin) 5,000 units SC Q8 [facility]; Protocol Last Admin: 08/28/18 08:39 Dose: 5,000 units Home Med (Ropinirole [Requip]) 0.25 mg PO BID [facility] Insulin Human Lispro (Humalog) 0 units SC ACHS [facility]; Protocol Last Admin: 08/28/18 08:40 Dose: Not Given Isosorbide Mononitrate (Imdur) 60 mg PO DAILY [facility] Last Admin: 08/28/18 08:39 Dose: 60 mg Lisinopril (Zestril) 10 mg PO DAILY [facility] Last Admin: 08/28/18 08:38 Dose: 10 mg Metformin HCl (Glucophage) 500 mg PO DAILY [facility] Last Admin: 08/28/18 08:38 Dose: 500 mg Metoprolol Tartrate (Lopressor) 75 mg PO Q12 [facility] Last Admin: 08/28/18 08:40 Dose: 75 mg Nitroglycerin (Nitrostat Sl Tab) 0.4 mg SL Q5MIN PRN PRN Reason: chest pain Sertraline HCl (Zoloft) 50 mg PO DAILY [facility] Last Admin: 08/28/18 08:39 Dose: 50 mg Tamsulosin HCl (Flomax) 0.4 mg PO DAILY [facility] Last Admin: 08/28/18 08:40 Dose: 0.4 mg Ticagrelor (Brilinta) 90 mg PO Q12 [facility] Last Admin: 08/28/18 08:38 Dose: 90 mg Tramadol HCl (Ultram) 50 mg PO Q6 PRN PRN Reason: Pain, severe (8-10) Last Admin: 08/28/18 06:55 Dose: 50 mg - Labs Labs: 08/28/18 10:30 08/28/18 10:30 PT 12.5 Seconds (9.8-13.1) 08/26/18 23:48 INR 1.1 08/26/18 23:48 APTT 29.4 Seconds (25.6-37.1) 08/26/18 23:48 - Head Exam Head Exam: NORMAL INSPECTION - Neck Exam Neck Exam: Normal Inspection - Respiratory Exam Respiratory Exam: Clear to Ausculation Bilateral - Cardiovascular Exam Cardiovascular Exam: REGULAR RHYTHM - GI/Abdominal Exam GI & Abdominal Exam: Normal Bowel Sounds - Extremities Exam Extremities Exam: Normal Inspection Assessment and Plan - Assessment and Plan (Free Text) Assessment: stable no chest pain at rest Continue to observe telemetry Agree with Plans to transfer to TCU
[2018-08-29] MEDS: Insulin Lispro (humaLOG) 100 Units/ml Inj SC SCH ×4 (08:25→22:21)
[2018-08-29] MEDS: Digoxin 125 mcg (0.125 mg) Tab PO SCH (08:25)
--- NOTE | 2018-08-29 10:41 | CP.PCM.PN ---
Subjective - Date & Time of Evaluation Date of Evaluation: 08/29/18 Time of Evaluation: 08:00 - Subjective Subjective: Patient seen and examined this morning with Dr. Carter. NAD, No acute event overnight, denies any chest pain, SOB, palpitations, dizziness or abdominal pain. Objective - Vital Signs/Intake and Output Vital Signs (last 24 hours): Temp Pulse Resp BP Pulse Ox 98.3 F 64 18 129/73 99 08/29/18 07:44 08/29/18 08:24 08/29/18 07:44 08/29/18 08:24 08/29/18 07:44 - Medications Medications: Current Medications Acetaminophen (Tylenol 325mg Tab) 650 mg PO Q6 PRN PRN Reason: Pain, Mild (1-3) Last Admin: 08/27/18 13:45 Dose: 650 mg Aspirin (Ecotrin) 81 mg PO DAILY [facility] Last Admin: 08/29/18 08:24 Dose: 81 mg Atorvastatin Calcium (Lipitor) 20 mg PO HS [facility] Last Admin: 08/28/18 21:01 Dose: 20 mg Dextrose (Dextrose 50% Inj) 0 ml IV STAT PRN; Protocol PRN Reason: Hypoglycemia Protocol Dextrose (Glutose 15) 0 gm PO ONCE PRN; Protocol PRN Reason: Hypoglycemia Protocol Digoxin (Digoxin) 0.125 mg PO DAILY [facility] Last Admin: 08/29/18 08:25 Dose: 0.125 mg Glucagon (Glucagen Diagnostic Kit) 0 mg IM STAT PRN; Protocol PRN Reason: Hypoglycemia Protocol Heparin Sodium (Porcine) (Heparin) 5,000 units SC Q8 [facility]; Protocol Last Admin: 08/29/18 08:25 Dose: 5,000 units Insulin Human Lispro (Humalog) 0 units SC ACHS [facility]; Protocol Last Admin: 08/29/18 08:25 Dose: Not Given Isosorbide Mononitrate (Imdur) 60 mg PO DAILY [facility] Last Admin: 08/29/18 08:25 Dose: 60 mg Lisinopril (Zestril) 10 mg PO DAILY [facility] Last Admin: 08/29/18 08:23 Dose: 10 mg Metformin HCl (Glucophage) 500 mg PO DAILY [facility] Last Admin: 08/29/18 08:23 Dose: 500 mg Metoprolol Tartrate (Lopressor) 75 mg PO Q12 [facility] Last Admin: 08/29/18 08:24 Dose: 75 mg Nitroglycerin (Nitrostat Sl Tab) 0.4 mg SL Q5MIN PRN PRN Reason: chest pain Sertraline HCl (Zoloft) 50 mg PO DAILY [facility] Last Admin: 08/29/18 08:24 Dose: 50 mg Tamsulosin HCl (Flomax) 0.4 mg PO DAILY [facility] Last Admin: 08/29/18 08:24 Dose: 0.4 mg Ticagrelor (Brilinta) 90 mg PO Q12 [facility] Last Admin: 08/29/18 08:24 Dose: 90 mg Tramadol HCl (Ultram) 50 mg PO Q6 PRN PRN Reason: Pain, severe (8-10) Last Admin: 08/29/18 08:22 Dose: 50 mg - Labs Labs: 08/28/18 10:30 08/28/18 10:30 PT 12.5 Seconds (9.8-13.1) 08/26/18 23:48 INR 1.1 08/26/18 23:48 APTT 29.4 Seconds (25.6-37.1) 08/26/18 23:48 - Constitutional Appears: No Acute Distress - Head Exam Head Exam: NORMAL INSPECTION - Eye Exam Eye Exam: Normal appearance - ENT Exam ENT Exam: Mucous Membranes Moist - Neck Exam Neck Exam: Normal Inspection - Respiratory Exam Respiratory Exam: Clear to Ausculation Bilateral, NORMAL BREATHING PATTERN - Cardiovascular Exam Cardiovascular Exam: REGULAR RHYTHM, +S1, +S2 - GI/Abdominal Exam GI & Abdominal Exam: Soft, Normal Bowel Sounds. absent: Tenderness - Extremities Exam Extremities Exam: Normal Inspection - Back Exam Back Exam: NORMAL INSPECTION - Neurological Exam Neurological Exam: Alert, Awake, Oriented x3 - Psychiatric Exam Psychiatric exam: Normal Affect - Skin Skin Exam: Normal Color Assessment and Plan - Assessment and Plan (Free Text) Assessment: A/P: 72 y/o male with history of multiple admissions for chest pain, [place], COPD, DM, HTN, CAD with 3 PCI ,arthritis, CHF , NSTEMI (Refused cath) and chronic anemia admitted to [facility] for evaluation and treatment of recurrent chest pain. Recurrent chest pain, NSTEMI -Acute on Chronic -Cardiac consult, recommendations appreciated -C/w ASA 81 QD, Brilinta 90mg q12h, Nitrostat PRN chest pain -C/w pain management -C/w NC O2 to keep Spo2 >92% -Patient was explained about cardiac interventions and necessity in great detail. Patient understands risks associated with and with out any interventions, verbalizes and refuses any cardiac interventions -TCU transfer/management Chronic Arthritis -C/w pain management CAD -Isosorbide [place] 60 PO daily -C/w ASA, Statin, BB and ELINA-I Systolic CHF -Last echo in 12/2017 shows EF =20 with LVH -Continue Home medication DM -chronic -Last A1C 8.1 on 07/2018 -C/w Metformin -Sliding scale -Hypoglycemia protocol COPD -Continue Spiriva 18 QD -Ox 2 L nc PRN BPH -Flomax 0.4 mg QD Anxiety/depression -zoloft 50 PO QD DVT prophylaxis -Brilinta and Heparin Code Status -Full code
--- NOTE | 2018-08-29 13:02 | CP.PCM.PN ---
Subjective - Date & Time of Evaluation Date of Evaluation: 08/29/18 Time of Evaluation: 13:00 - Subjective Subjective: no cp awaiting transfer TCU Objective - Vital Signs/Intake and Output Vital Signs (last 24 hours): Temp Pulse Resp BP Pulse Ox 98.4 F 60 18 109/64 98 08/29/18 11:44 08/29/18 11:44 08/29/18 11:44 08/29/18 11:44 08/29/18 11:44 - Medications Medications: Current Medications Acetaminophen (Tylenol 325mg Tab) 650 mg PO Q6 PRN PRN Reason: Pain, Mild (1-3) Last Admin: 08/27/18 13:45 Dose: 650 mg Aspirin (Ecotrin) 81 mg PO DAILY [facility] Last Admin: 08/29/18 08:24 Dose: 81 mg Atorvastatin Calcium (Lipitor) 20 mg PO HS [facility] Last Admin: 08/28/18 21:01 Dose: 20 mg Dextrose (Dextrose 50% Inj) 0 ml IV STAT PRN; Protocol PRN Reason: Hypoglycemia Protocol Dextrose (Glutose 15) 0 gm PO ONCE PRN; Protocol PRN Reason: Hypoglycemia Protocol Digoxin (Digoxin) 0.125 mg PO DAILY [facility] Last Admin: 08/29/18 08:25 Dose: 0.125 mg Glucagon (Glucagen Diagnostic Kit) 0 mg IM STAT PRN; Protocol PRN Reason: Hypoglycemia Protocol Heparin Sodium (Porcine) (Heparin) 5,000 units SC Q8 [facility]; Protocol Last Admin: 08/29/18 08:25 Dose: 5,000 units Insulin Human Lispro (Humalog) 0 units SC ACHS [facility]; Protocol Last Admin: 08/29/18 08:25 Dose: Not Given Isosorbide Mononitrate (Imdur) 60 mg PO DAILY [facility] Last Admin: 08/29/18 08:25 Dose: 60 mg Lisinopril (Zestril) 10 mg PO DAILY [facility] Last Admin: 08/29/18 08:23 Dose: 10 mg Metformin HCl (Glucophage) 500 mg PO DAILY [facility] Last Admin: 08/29/18 08:23 Dose: 500 mg Metoprolol Tartrate (Lopressor) 75 mg PO Q12 [facility] Last Admin: 08/29/18 08:24 Dose: 75 mg Nitroglycerin (Nitrostat Sl Tab) 0.4 mg SL Q5MIN PRN PRN Reason: chest pain Sertraline HCl (Zoloft) 50 mg PO DAILY [facility] Last Admin: 08/29/18 08:24 Dose: 50 mg Tamsulosin HCl (Flomax) 0.4 mg PO DAILY [facility] Last Admin: 08/29/18 08:24 Dose: 0.4 mg Ticagrelor (Brilinta) 90 mg PO Q12 [facility] Last Admin: 08/29/18 08:24 Dose: 90 mg Tramadol HCl (Ultram) 50 mg PO Q6 PRN PRN Reason: Pain, severe (8-10) Last Admin: 08/29/18 08:22 Dose: 50 mg - Labs Labs: 08/28/18 10:30 08/28/18 10:30 PT 12.5 Seconds (9.8-13.1) 08/26/18 23:48 INR 1.1 08/26/18 23:48 APTT 29.4 Seconds (25.6-37.1) 08/26/18 23:48 - Head Exam Head Exam: NORMAL INSPECTION - Respiratory Exam Respiratory Exam: Clear to Ausculation Bilateral - Cardiovascular Exam Cardiovascular Exam: REGULAR RHYTHM - GI/Abdominal Exam GI & Abdominal Exam: Normal Bowel Sounds - Extremities Exam Extremities Exam: Normal Inspection Assessment and Plan - Assessment and Plan (Free Text) Plan: Stable s/p NSTEMI No cp Transfer to TCU to return on Saturday
--- NOTE | 2018-08-29 14:15 | PQF ---
PROVIDER RESPONSE TEXT: Systolic CHF, Chronic REVIEWER QUERY TEXT: CHF Acuity and Type Systolic Congestive Heart Failure is documented in the Medical Record. Please document the acuity: -- Acute -- Chronic -- Acute on chronic -- Other, please specify CXR: No active disease. No interval pathology noted. H and P and progress notes include: A/P: Systolic CHF: -Last echo in 12/2017 shows EF =20 with LVH -Continue Home medication The patient's Clinical Indicators include: --- Query created by: Elmira Mendieta on 08/29/2018 12:31 PM Electronically signed by: Herson Earl 08/29/2018 2:12 PM
--- NOTE | 2018-08-29 14:15 | PQF ---
PROVIDER RESPONSE TEXT: Anxiety and Depression, Chronic, Well Controlled REVIEWER QUERY TEXT: Depression Type Anxiety/Depression is documented in the Medical Record. Please specify the type Such as: -- Anxiety depression, mild or not persistent -- Anxiety depression, persistent -- Other, please specify H and P and progress notes include:Anxiety/depression -zoloft 50 PO QD The patient's Clinical Indicators include: --- Query created by: Elmira Mendieta on 08/29/2018 12:37 PM Electronically signed by: Herson Earl 08/29/2018 2:12 PM
--- NOTE | 2018-08-29 14:15 | PQF ---
PROVIDER RESPONSE TEXT: DM-II with hyperglycemia REVIEWER QUERY TEXT: Diabetic Associated Manifestations Please specify any manifestations associated / due to diabetes Such as: --DM with Hyperglycemia -- Diabetes with renal manifestation -- Diabetes with neurologic manifestation -- Diabetes with ophthalmic manifestation -- Diabetes with peripheral circulatory manifestation -- Other, please specify -- OR: Disagree Random glucose:226->132->234 POC:143->180->231->194->135->258 H and P and progress notes include:DM -chronic -Last A1C 8.1 on 07/2018 -C/w Metformin -Sliding scale -Hypoglycemia protocol The patient's Clinical Indicators include: --- Query created by: Elmira Mendieta on 08/29/2018 12:34 PM Electronically signed by: Herson Earl 08/29/2018 2:12 PM
[2018-08-30] MEDS: Insulin Lispro (humaLOG) 100 Units/ml Inj SC SCH ×4 (06:29→21:42)
--- NOTE | 2018-08-30 10:43 | PN ---
DATE: 08/30/2018 SUBJECTIVE: The patient was seen and examined. Interim events noted. Consults noted and appreciated. The patient remains in progressive care unit on telemetry monitoring. Denies any chest pain or shortness of breath. Complains of generalized weakness, anxious to get home. PHYSICAL EXAMINATION: GENERAL: The patient is in no acute distress. VITAL SIGNS: Stable. HEART: S1 and S2 normal and regular. LUNGS: Good bilateral air exchange. ABDOMEN: Soft, nontender. EXTREMITIES: No edema. No calf swelling. No tenderness. No acute ischemia. CENTRAL NERVOUS SYSTEM: Exam is essentially unchanged. LABORATORY DATA: Diagnostic data available. Diagnostic data reviewed. Telemetry monitoring shows episodes of bradycardia. ASSESSMENT AND PLAN: We will reduce Lopressor to 50 mg b.i.d. Overall, the patient's general medical condition is stable. Plan as ordered. Vito Carter MD
[2018-08-30] MEDS: Digoxin 125 mcg (0.125 mg) Tab PO SCH (14:10)
[2018-08-30] MEDS: Tiotropium 18 mcg Cap For Inhalation INH SCH (21:00)
[2018-08-31 06:06] LABS: HEMOGLOBIN 9.9 g/dL (12.0-18.0); MEAN CELL VOLUME 93.7 fl (80.0-94.0); MEAN CORPUSCULAR HEMOGLOBIN 31.3 pg (27.0-31.0); MEAN CORPUSCULAR HGB CONC 33.4 g/dL (33.0-37.0); RBC 3.18 Mil/uL (4.40-5.90); RED CELL DISTRIBUTION WIDTH 14.7 % (11.5-14.5); WHITE BLOOD COUNT 6.8 K/uL (4.8-10.8)
[2018-08-31 06:22] LABS: ALB/GLOB RATIO 1.2 (1.0-2.1); ALBUMIN 3.5 g/dL (3.5-5.0); ALT/SGPT 35 U/L (21-72); AST/SGOT 28 U/L (17-59); BLOOD UREA NITROGEN 16 mg/dl (9-20); GFR NON-AFRICAN AMERICAN > 60
[2018-08-31] MEDS: Insulin Lispro (humaLOG) 100 Units/ml Inj SC SCH ×4 (07:00→21:16)
[2018-08-31] MEDS: Digoxin 125 mcg (0.125 mg) Tab PO SCH (08:54)
[2018-08-31] MEDS: Tiotropium 18 mcg Cap For Inhalation INH SCH (08:59)
--- NOTE | 2018-08-31 09:10 | PN ---
DATE: 08/31/2018 SUBJECTIVE: The patient is seen and examined. Interim events noted. Consults noted and appreciated. The patient remains in progressive care unit with symptoms of dizziness and chest pain. No shortness of breath. PHYSICAL EXAMINATION: GENERAL: The patient is in no acute distress. VITAL SIGNS: Stable. HEART: S1 and S2, normal, regular. LUNGS: Good bilateral air exchange. ABDOMEN: Soft, nontender. EXTREMITIES: No edema. No calf swelling. No tenderness. No acute ischemia. CENTRAL NERVOUS SYSTEM: Essentially unchanged. DIAGNOSTIC DATA: Available diagnostic data reviewed. Telemetry monitoring does not show significant arrhythmias. ASSESSMENT AND PLAN: Overall, the patient's general medical condition is stable. Plan as ordered. Vito Carter MD
[2018-09-01 05:42] LABS: HEMOGLOBIN 10.4 g/dL (12.0-18.0); MEAN CORPUSCULAR HEMOGLOBIN 31.6 pg (27.0-31.0); MEAN CORPUSCULAR HGB CONC 33.6 g/dL (33.0-37.0); RBC 3.29 Mil/uL (4.40-5.90); RED CELL DISTRIBUTION WIDTH 14.6 % (11.5-14.5); WHITE BLOOD COUNT 6.9 K/uL (4.8-10.8)
[2018-09-01 05:52] LABS: ALB/GLOB RATIO 1.3 (1.0-2.1); ALBUMIN 3.8 g/dL (3.5-5.0); ALT/SGPT 35 U/L (21-72); AST/SGOT 38 U/L (17-59); BLOOD UREA NITROGEN 15 mg/dl (9-20); CALCIUM 9.4 mg/dL (8.4-10.2); GFR NON-AFRICAN AMERICAN > 60
[2018-09-01 08:04] VITALS: RESP 20
[2018-09-01] MEDS: Digoxin 125 mcg (0.125 mg) Tab PO SCH (08:36)
[2018-09-01] MEDS: Tiotropium 18 mcg Cap For Inhalation INH SCH (08:37)
[2018-09-01 08:43] VITALS: PULSE 60
[2018-09-01] MEDS: Insulin Lispro (humaLOG) 100 Units/ml Inj SC SCH ×2 (08:47→12:29)
--- NOTE | 2018-09-01 09:30 | CP.PCM.PN ---
Subjective - Date & Time of Evaluation Date of Evaluation: 09/01/18 Time of Evaluation: 08:30 - Subjective Subjective: NOTE: O WAS AWAY AND DR THEO BAPTISTE SAW THE PATIENT FOR ME AND I AM SEEING HIM OF TODAY. PATIENT WELL KNOWN TO ME AND DISCUSSED IN DETAIL WITH DR BAPTISTE NO CHEST PAIN OR SOB TODAY Objective - Vital Signs/Intake and Output Vital Signs (last 24 hours): Temp Pulse Resp BP Pulse Ox 98.3 F 60 20 122/69 98 09/01/18 08:02 09/01/18 08:42 09/01/18 08:02 09/01/18 08:42 09/01/18 08:02 - Medications Medications: Current Medications Acetaminophen (Tylenol 325mg Tab) 650 mg PO Q6 PRN PRN Reason: Pain, Mild (1-3) Last Admin: 08/29/18 20:48 Dose: 650 mg Aspirin (Ecotrin) 81 mg PO DAILY [facility] Last Admin: 09/01/18 08:36 Dose: 81 mg Atorvastatin Calcium (Lipitor) 20 mg PO HS [facility] Last Admin: 08/31/18 21:10 Dose: 20 mg Dextrose (Dextrose 50% Inj) 0 ml IV STAT PRN; Protocol PRN Reason: Hypoglycemia Protocol Dextrose (Glutose 15) 0 gm PO ONCE PRN; Protocol PRN Reason: Hypoglycemia Protocol Digoxin (Digoxin) 0.125 mg PO DAILY [facility] Last Admin: 09/01/18 08:36 Dose: 0.125 mg Glucagon (Glucagen Diagnostic Kit) 0 mg IM STAT PRN; Protocol PRN Reason: Hypoglycemia Protocol Heparin Sodium (Porcine) (Heparin) 5,000 units SC Q8 [facility]; Protocol Last Admin: 09/01/18 08:40 Dose: 5,000 units Insulin Human Lispro (Humalog) 0 units SC ACHS [facility]; Protocol Last Admin: 09/01/18 08:47 Dose: 1 units Isosorbide Mononitrate (Imdur) 60 mg PO DAILY [facility] Last Admin: 09/01/18 08:42 Dose: 60 mg Lisinopril (Zestril) 10 mg PO DAILY [facility] Last Admin: 09/01/18 08:42 Dose: 10 mg Metformin HCl (Glucophage) 500 mg PO DAILY [facility] Last Admin: 09/01/18 08:37 Dose: 500 mg Metoprolol Tartrate (Lopressor) 50 mg PO Q12 [facility] Last Admin: 09/01/18 08:38 Dose: 50 mg Nitroglycerin (Nitrostat Sl Tab) 0.4 mg SL Q5MIN PRN PRN Reason: chest pain Sertraline HCl (Zoloft) 50 mg PO DAILY [facility] Last Admin: 09/01/18 08:43 Dose: 50 mg Tamsulosin HCl (Flomax) 0.4 mg PO DAILY [facility] Last Admin: 09/01/18 08:39 Dose: 0.4 mg Ticagrelor (Brilinta) 90 mg PO Q12 [facility] Last Admin: 09/01/18 08:35 Dose: 90 mg Tiotropium [place] (Spiriva) 18 mcg INH DAILY [facility] Last Admin: 09/01/18 08:37 Dose: 18 mcg Tramadol HCl (Ultram) 50 mg PO Q6 PRN PRN Reason: Pain, severe (8-10) Last Admin: 09/01/18 07:24 Dose: 50 mg - Labs Labs: 09/01/18 04:20 09/01/18 04:20 PT 12.5 Seconds (9.8-13.1) 08/26/18 23:48 INR 1.1 08/26/18 23:48 APTT 29.4 Seconds (25.6-37.1) 08/26/18 23:48 - Respiratory Exam Respiratory Exam: Clear to Ausculation Bilateral - Cardiovascular Exam Cardiovascular Exam: REGULAR RHYTHM, +S1, +S2 - Extremities Exam Additional comments: NO LE EDEMA - Additional Findings Additional findings: 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 MULTIPLE NSTEMIS SINCE THEN INCLUDING THIS ADMISSION BUT THE PATIENT REFUSED A CARDIAC CATH FOR FURTHER INTERVENTION DESPITE BEING CLEARLY INFORMED OF MYOCARDIAL INJURY HYPERTENSION TYPE 2 DM CIGARETTE SMOKER Plan: I ALSO RECOMMENDED A CARDIAC CATH TO THE PATIENT BUT HE STILL REFUSES A CARDIAC CATH FOR CORONARY INTERVENTION DESPITE BEING TOLD OF POSSIBLY DYING BY REFUSING CORONARY INTERVENTION HE WANTS TO GO TO TCU CONTINUE ASPIRIN, BRILINTA, NITRATES, METOPROLOL, ATORVASTATIN, LISINOPRIL, DIGOXIN, METFORMEN, HEPARIN
[2018-09-01 12:11] VITALS: BP 112/54; PULSE 66; TEMP 97.7; O2SAT 97
--- NOTE | 2018-09-01 12:11 | PN ---
DATE: 09/01/2018 SUBJECTIVE: The patient seen and examined. Interim events noted. Consults noted and appreciated. The patient remains in progressive care unit on telemetry monitoring. Feels okay. Denies any chest pain or shortness of breath. Complains of generalized chronic arthritic pain. PHYSICAL EXAMINATION: GENERAL: The patient is in no acute distress. VITAL SIGNS: Stable. HEART: S1 and S2, normal and regular. LUNGS: Good bilateral air exchange. ABDOMEN: Soft, nontender. EXTREMITIES: No edema. No calf swelling. No tenderness. No acute ischemia. RN CARDIAC CATH: Exam is essentially unchanged. DIAGNOSTIC DATA: Available diagnostic data reviewed. Telemetry monitoring does not show significant arrhythmias. ASSESSMENT AND PLAN: Overall, the patient is medically stable. The patient is now in the transitional care unit. Case discussed with the patient's primary care physician, Dr. House. The patient adamantly refused cardiac catheterization. Understands the risks and consequences of the same. Plan as ordered. Vito Carter MD
--- NOTE | 2018-09-01 12:27 | CP.PCM.PCO ---
Assessment/Plan - Assessment and Plan (Free Text) Assessment: Patient seen and examined this morning. VSS, denies chest pain, shortness of breath nausea vomiting. Discussed with Dr House, patient cardiac cleared for discharge home. Has all his medications at home, rx for tramadol given last time he was discharg ed. Discussed with CLARISSE, patient has no more nedra days and will return home. Discussed with Dr. Carter who agrees with discharge home. Will dc home via ambulance.
== END 2018-09-01 12:41 | disposition home health service (06) | DRG 281 ==
LOC: H.ER 22:39 → H.ERHOLD 08-27 00:03 → H.TEL 08-27 02:17 → OBSVTOIN 08-28 16:45
PROVIDERS: ADMIT Internal Medicine; ATTEND Internal Medicine
DX: I22.2 Subsequent non-ST elevation (NSTEMI) myocardial infarction (principal); I50.22 Chronic systolic (congestive) heart failure; I21.4 Non-ST elevation (NSTEMI) myocardial infarction; G35 Multiple sclerosis; I11.0 Hypertensive heart disease with heart failure; I25.5 Ischemic cardiomyopathy; Z53.29 Procedure and treatment not carried out because of patient's decision for other reasons; E11.65 Type 2 diabetes mellitus with hyperglycemia; I25.10 Atherosclerotic heart disease of native coronary artery without angina pectoris; J43.9 Emphysema, unspecified; E78.5 Hyperlipidemia, unspecified; E78.00 Pure hypercholesterolemia, unspecified; F41.9 Anxiety disorder, unspecified; F32.9 Major depressive disorder, single episode, unspecified; M19.011 Primary osteoarthritis, right shoulder; D64.9 Anemia, unspecified; N40.0 Benign prostatic hyperplasia without lower urinary tract symptoms; F17.210 Nicotine dependence, cigarettes, uncomplicated; Z95.5 Presence of coronary angioplasty implant and graft; Z79.82 Long term (current) use of aspirin; Z79.84 Long term (current) use of oral hypoglycemic drugs; Z86.73 Personal history of transient ischemic attack (TIA), and cerebral infarction without residual deficits; Z87.01 Personal history of pneumonia (recurrent); Z88.6 Allergy status to analgesic agent; Z88.0 Allergy status to penicillin

== ENCOUNTER 2018-10-09 22:05 | Inpatient (IN) | payer MEDICARE ==
[2018-10-09 22:05] VITALS: BMI 19.5
[2018-10-09 22:52] LABS: BASO # 0.1 K/uL (0.0-0.2); BASO % 1.1 % (0.0-2.0); EOS # 0.4 K/uL (0.0-0.7); EOS % 4.6 % (0.0-4.0); HEMOGLOBIN 11.9 g/dL (12.0-18.0); LYMPH % 26.2 % (20.0-40.0); MEAN CELL VOLUME 91.8 fl (80.0-94.0); MEAN CORPUSCULAR HEMOGLOBIN 30.8 pg (27.0-31.0); MEAN CORPUSCULAR HGB CONC 33.6 g/dL (33.0-37.0); MEAN PLATELET VOLUME 8.5 fl (7.2-11.7); MONO # 0.7 K/uL (0.0-0.8); MONO % 8.8 % (0.0-10.0); NEUT # 4.5 K/uL (1.8-7.0); NEUT % 59.3 % (50.0-75.0); NRBC % 0.1 % (0.0-0.0); RBC 3.87 Mil/uL (4.40-5.90); RED CELL DISTRIBUTION WIDTH 14.6 % (11.5-14.5); WHITE BLOOD COUNT 7.6 K/uL (4.8-10.8)
[2018-10-09 22:57] LABS: INR 1.2; PROTHROMBIN TIME 13.5 Seconds (9.8-13.1)
[2018-10-09 23:00] LABS: PARTIAL THROMBOPLASTIN TIME 32.6 Seconds (25.6-37.1)
[2018-10-09 23:03] LABS: ALB/GLOB RATIO 1.4 (1.0-2.1); ALBUMIN 4.3 g/dL (3.5-5.0); ALT/SGPT 24 U/L (21-72); AST/SGOT 22 U/L (17-59); BLOOD UREA NITROGEN 14 mg/dl (9-20); CALCIUM 9.4 mg/dL (8.4-10.2); GFR NON-AFRICAN AMERICAN > 60
[2018-10-09 23:14] LABS: B-TYPE NATRIURETIC PEPTIDE 3320 pg/ml (0-900)
--- NOTE | 2018-10-09 23:49 | ED PDOC ---
HPI: Chest Pain Time Seen by Provider: 10/09/18 22:19 Chief Complaint (Nursing): Chest Pain Chief Complaint (Provider): Chest Pain History Per: Patient History/Exam Limitations: no limitations Onset/Duration Of Symptoms: Hrs (x4) Additional Complaint(s): 72 years old male presents to ER for evaluation of left sided chest pain associated with shortness of breath onset 4 hours ago. Patient reports radiation of pain to arm and reports taking Nitro and 2 baby Aspirin with no relief. He state he ran out of Digoxin and Tramadol 2 days ago. Patient was recently hospitalized for NSTEMI. PMD: Dr. Carter Past Medical History Reviewed: Historical Data, Nursing Documentation, Vital Signs Vital Signs: Last Vital Signs Temp 98.9 F 10/09/18 22:07 Pulse 75 10/09/18 22:14 Resp 18 10/09/18 22:07 BP 149/75 10/09/18 22:07 Pulse Ox 100 10/09/18 22:07 - Medical History PMH: Anemia, Anxiety, Arthritis, Asthma, Benign Prostatic Hyperplasia, CAD, Cardia Arrhythmia, CHF, COPD, CVA, Depression, Diabetes, Emphysema, Fractures (bilateral feet), HTN, Hypercholesterolemia, Hyperlipidemia, Multiple Sclerosis, Pneumonia, TIA Denies: Bronchitis, HIV, Chronic Kidney Disease - Surgical History Surgical History: Cholecystectomy, Coronary Stent (x3) Denies: CABG - Family History Family History: States: Unknown Family Hx, Diabetes - Home Medications Home Medications: Ambulatory Orders Medication Instructions Recorded Sertraline [Zoloft] 50 mg PO DAILY #30 tab 09/18/17 Tamsulosin [Flomax] 0.4 mg PO DAILY #30 cap 09/18/17 Nitroglycerin [Nitrostat SL Tab] 0.4 mg SL Q5MIN PRN 04/24/18 Aspirin [Ecotrin] 81 mg PO DAILY #100 tabec 04/30/18 Digoxin 0.125 mg PO DAILY 05/16/18 Isosorbide Mononitrate ER [Imdur 60 mg PO DAILY 05/16/18 ER] Lisinopril [Zestril] 10 mg PO DAILY 05/16/18 Melatonin [Melatin] 3 mg PO HS 05/16/18 Ticagrelor [Brilinta] 90 mg PO Q12 05/16/18 Atorvastatin [Lipitor] 20 mg PO HS 08/12/18 metFORMIN [glucOPHAGE] 500 mg PO DAILY 08/12/18 rOPINIRole [Requip] 0.25 mg PO BID 08/23/18 Metoprolol Tartrate [Lopressor] 75 mg PO Q12 #60 tab 08/26/18 traMADol [Ultram] 50 mg PO Q8 #15 tab 10/10/18 - Allergies Allergies/Adverse Reactions: Allergies Allergy/AdvReac Type Severity Reaction Status Date / Time codeine Allergy Intermediate HEADACHE Verified 10/09/18 22:07 ampicillin Allergy RASH Verified 10/09/18 22:07 CARMEN Risk Score for UA/NSTEMI - CARMEN Risk Score Age > 64: YES 3 or more CAD Risk Factors: YES Known CAD (Stenosis greater than 50%): YES Aspirin use in past 7 days: YES CARMEN Score: 4 Risk %: 20% Review of Systems ROS Statement: Except As Marked, All Systems Reviewed And Found Negative Cardiovascular: Positive for: Chest Pain (Left sided) Respiratory: Positive for: Shortness of Breath Physical Exam - Reviewed Nursing Documentation Reviewed: Yes Vital Signs Reviewed: Yes - Physical Exam Appears: Positive for: In Acute Distress (mild painful) Head Exam: Positive for: ATRAUMATIC, NORMOCEPHALIC Skin: Positive for: Warm, Dry Eye Exam: Positive for: EOMI, PERRL ENT: Negative for: Pharyngeal Erythema, Tonsillar Exudate Neck: Positive for: Painless ROM, Supple Cardiovascular/Chest: Positive for: Regular Rate, Rhythm. Negative for: Murmur Respiratory: Positive for: Rhonchi (Diffused). Negative for: Respiratory Distress Gastrointestinal/Abdominal: Positive for: Soft. Negative for: Tenderness Back: Positive for: Normal Inspection. Negative for: Muscle Spasm Extremity: Positive for: Normal ROM. Negative for: Pedal Edema, Swelling Lymphatic: Negative for: Adenopathy Neurological/Psych: Positive for: Awake, Alert, Oriented (x3) - Laboratory Results Result Diagrams: 10/12/18 04:30 10/12/18 04:30 Lab Results: PT 13.5 Seconds (9.8-13.1) H 10/09/18 22:49 INR 1.2 10/09/18 22:49 APTT 32.6 Seconds (25.6-37.1) 10/09/18 22:49 Troponin I 0.0350 ng/mL (0.00-0.120) 10/09/18 22:49 NT-Pro-B Natriuret Pep 3320 pg/ml (0-900) H 10/09/18 22:49 Total Bilirubin 0.4 mg/dl (0.2-1.3) 10/09/18 22:49 AST 22 U/L (17-59) 10/09/18 22:49 ALT 24 U/L (21-72) 10/09/18 22:49 Alkaline Phosphatase 77 U/L (38-126) 10/09/18 22:49 Total Protein 7.3 G/DL (6.3-8.2) 10/09/18 22:49 Albumin 4.3 g/dL (3.5-5.0) 10/09/18 22:49 Globulin 3.0 gm/dL (2.2-3.9) 10/09/18 22:49 Albumin/Globulin Ratio 1.4 (1.0-2.1) 10/09/18 22:49 - ECG ECG Rhythm: Positive for: Normal QRS, Normal ST Segment, Sinus Rhythm Interpretation Of Abn EKG: T wave inversion in anterolateral Rate: 75 O2 Sat by Pulse Oximetry: 100 (RA) Pulse Ox Interpretation: Normal Medical Decision Making Medical Decision Making: Time: 2219 Initial Impression: Chest pain with cardiac risk factors Initial Plan: --Type and screen --EKG --BNP --CMP --Digoxin --Magnesium --Phosphorus --Troponin --CBC --PTT --PT --Chest x-ray Patient needs hospitalization for serial troponin to rule out ACS. Similar EKG was done in August 2018. [address] Carter for admission. Scribe Attestation: Documented by Keyona Ramon, acting as a scribe for Kelli Sanchez MD. Provider Scribe Attestation: All medical record entries made by the Scribe were at my direction and personally dictated by me. I have reviewed the chart and agree that the record accurately reflects my personal performance of the history, physical exam, medical decision making, and the department course for this patient. I have also personally directed, reviewed, and agree with the discharge instructions and disposition. Disposition - Clinical Impression Clinical Impression: Chest pain Counseled Patient/Family Regarding: Studies Performed, Diagnosis - Disposition Disposition Time: 23:00 Condition: FAIR - Pt Status Changed To: Hospital Disposition Of: Observation - POA Present On Arrival: None
--- NOTE | 2018-10-10 07:16 | CP.PCM.HP ---
<Frantz Gaitan - Last Filed: 10/10/18 09:54> History of Present Illness - History of Present Illness History of Present Illness: 72 y/o M with a PMHx of multiple admissions for chest pain, NM, COPD, DM, HTN, CAD with 3 PCI ,arthritis, CHF , NSTEMI (Refused cath) and chronic anemia admitt ed to [facility] for evaluation and management of chest pain. Pt reports that severe left sided chest pain yesterday that pressure-like, radiated to back and L arm, and was associated with SOB. Pt was admitted 1 month ago due to NSTEMI, however, pt declined cardiac intervention. PMD: Dr Carter. Form Grader: Dr. House Allergies: Ampicillin, codeine Medications : see med rec -PMHx: Anemia, Anxiety, Arthritis,CAD, Cardiac Arrhythmia, CHF, COPD, DM II; Emphysema, Fractures (bilateral feet), HTN, HLD -PSHx: Cholecystectomy, Coronary Stent (x3); Cataract surgery -SHx : lives in [place] alone, inter smoking, No illegal drug use; No Alcohol Code status : full ED Course: --troponin neg x1 --EKG abnormal --Pro-BNP was elevated but decreasing from previous higher levels. --Ultram administered for pain relief. Present on Admission - Present on Admission Any Indicators Present on Admission: No Review of Systems - Constitutional Constitutional: Anorexia, Fever - EENT Eyes: absent: Blurred Vision Nose/Mouth/Throat: absent: Epistaxis, Nasal Congestion, Sore Throat, Neck Pain, Neck Mass - Cardiovascular Cardiovascular: Chest Pain, Dyspnea. absent: Palpitations - Respiratory Respiratory: absent: Cough, Dyspnea, Hemoptysis - Gastrointestinal Gastrointestinal: absent: Abdominal Pain, Bloating, Constipation, Diarrhea, Nausea, Vomiting Past Patient History - Infectious Disease Hx of Infectious Diseases: None - Tetanus Immunizations Tetanus Immunization: Unknown - Past Medical History & Family History Past Medical History?: Yes - Past Social History Smoking Status: Former Smoker - CARDIAC Hx Cardiac Disorders: Yes Hx Cardia Arrhythmia: Yes Hx Congestive Heart Failure: Yes Hx Hypercholesterolemia: Yes Hx Hypertension: Yes - PULMONARY Hx Respiratory Disorders: Yes Hx Asthma: Yes Hx Bronchitis: No Hx Chronic Obstructive Pulmonary Disease (COPD): Yes Hx Emphysema: Yes Hx Pneumonia: Yes - NEUROLOGICAL Hx Neurological Disorder: Yes Hx Multiple Sclerosis: Yes Hx Transient Ischemic Attacks (TIA): Yes - HEENT Hx HEENT Problems: No - RENAL Hx Chronic Kidney Disease: No - ENDOCRINE/METABOLIC Hx Endocrine Disorders: Yes Hx Diabetes Mellitus Type 2: Yes - HEMATOLOGICAL/ONCOLOGICAL Hx Blood Disorders: Yes Hx AIDS: No Hx Anemia: Yes Hx Human Immunodeficiency Virus (HIV): No - INTEGUMENTARY Hx Dermatological Problems: No - MUSCULOSKELETAL/RHEUMATOLOGICAL Hx Musculoskeletal Disorders: Yes Hx Arthritis: Yes Hx Falls: No Hx Fractures: Yes (bilateral feet) - GASTROINTESTINAL Hx Gastrointestinal Disorders: No - GENITOURINARY/GYNECOLOGICAL Hx Genitourinary Disorders: Yes - PSYCHIATRIC Hx Psychophysiologic Disorder: Yes Hx Anxiety: Yes Hx Depression: Yes Hx Substance Use: No - SURGICAL HISTORY Hx Surgeries: Yes Hx Cholecystectomy: Yes Hx Coronary Artery Bypass Graft: No Hx Coronary Stent: Yes (x3) - ANESTHESIA Hx Anesthesia: Yes Hx Anesthesia Reactions: No Hx Malignant Hyperthermia: No Has any member of the family had a problem w/ anesthesia?: No Meds Allergies/Adverse Reactions: Allergies Allergy/AdvReac Type Severity Reaction Status Date / Time codeine Allergy Intermediate HEADACHE Verified 10/09/18 22:07 ampicillin Allergy RASH Verified 10/09/18 22:07 Physical Exam - Constitutional Appears: No Acute Distress - Head Exam Head Exam: ATRAUMATIC, NORMAL INSPECTION - Eye Exam Eye Exam: EOMI, Normal appearance - ENT Exam ENT Exam: Mucous Membranes Moist - Respiratory Exam Respiratory Exam: NORMAL BREATHING PATTERN. absent: Rales, Rhonchi, Wheezes, Respiratory Distress - Cardiovascular Exam Cardiovascular Exam: +S1, +S2 - GI/Abdominal Exam GI & Abdominal Exam: Normal Bowel Sounds, Soft. absent: Guarding, Rebound, Rigid, Tenderness - Back Exam Back exam: absent: CVA tenderness (L), CVA tenderness (R) - Neurological Exam Neurological exam: Alert, Oriented x3 Results - Vital Signs Recent Vital Signs: Last Vital Signs Temp 99 F 10/10/18 05:04 Pulse 64 10/10/18 05:04 Resp 18 10/10/18 05:04 BP 138/78 10/10/18 05:04 Pulse Ox 100 10/10/18 05:04 - Labs Result Diagrams: 10/09/18 22:49 10/09/18 22:49 Labs: Laboratory Results - last 24 hr 10/09/18 10/09/18 10/09/18 22:33 22:49 22:49 WBC 7.6 RBC 3.87 L Hgb 11.9 L Hct 35.6 MCV 91.8 D MCH 30.8 MCHC 33.6 RDW 14.6 H Plt Count 242 MPV 8.5 Neut % (Auto) 59.3 Lymph % (Auto) 26.2 [place] % (Auto) 8.8 Eos % (Auto) 4.6 H Baso % (Auto) 1.1 Neut # (Auto) 4.5 Lymph # (Auto) 2.0 [place] # (Auto) 0.7 Eos # (Auto) 0.4 Baso # (Auto) 0.1 PT INR APTT Sodium 135 Potassium 3.7 Chloride 99 Carbon Dioxide 25 Anion Gap 15 BUN 14 Creatinine 0.8 Est GFR ( Amer) > 60 Est GFR (Non-Af Amer) > 60 Random Glucose 266 H Calcium 9.4 Phosphorus 3.6 Magnesium 1.7 Total Bilirubin 0.4 AST 22 ALT 24 Alkaline Phosphatase 77 Troponin I 0.0350 NT-Pro-B Natriuret Pep 3320 H Total Protein 7.3 Albumin 4.3 Globulin 3.0 Albumin/Globulin Ratio 1.4 Digoxin Blood Type A POSITIVE Antibody Screen Negative BBK History Checked Patient has bt 10/09/18 10/09/18 22:49 22:49 WBC RBC Hgb Hct MCV MCH MCHC RDW Plt Count MPV Neut % (Auto) Lymph % (Auto) [place] % (Auto) Eos % (Auto) Baso % (Auto) Neut # (Auto) Lymph # (Auto) [place] # (Auto) Eos # (Auto) Baso # (Auto) PT 13.5 H INR 1.2 APTT 32.6 Sodium Potassium Chloride Carbon Dioxide Anion Gap BUN Creatinine Est GFR ( Amer) Est GFR (Non-Af Amer) Random Glucose Calcium Phosphorus Magnesium Total Bilirubin AST ALT Alkaline Phosphatase Troponin I NT-Pro-B Natriuret Pep Total Protein Albumin Globulin Albumin/Globulin Ratio Digoxin 0.5 L Blood Type Antibody Screen BBK History Checked Assessment & Plan - Assessment and Plan (Free Text) Assessment: 72 y/o M with a PMHx of multiple admissions for chest pain, NM, COPD, DM, HTN, CAD with 3 PCI ,arthritis, CHF , NSTEMI (Refused cath) and chronic anemia admitted to [facility] for evaluation and management of chest pain. PLAN: >Acute chest pain --Hx of NSTEMI 1 month ago, pt currently declining cardiac procedures. --Admitted to telemetry --Repeat serum troponin Q6H x2 --Abnormal EKG. Will repeat EKG --C/w home meds: ASA 81 QD, Brilinta 90mg q12h, Nitrostat PRN chest pain --C/w O2 by NC, to keep Spo2 >92% --Continuous cardiac monitoring. --Heart Healthy diet --Cardiology consult, Dr House. >Chronic CHF, systolic dysfunction --Last echo in 12/2017: LVEF 20% with LVH --C/w home meds: Lisinopril , Metoprolol, Digoxin --Cardiology consult, Dr House. >Osteoarthritis --Chronic --Tramadol PRN >NIDDM --Chronic --Last A1C 8.1 on 07/2018 --Accuchecks. --Insulin Sliding scale and hypoglycemia protocol. >COPD --Stable --C/w O2 by NC, to keep Spo2 >92% --PRN Duonebs >Hypertension --Chronic, controlled --Resume home meds >Chronic normocytic anemia --Hgb 11.9-stable >DVT prophylaxis --On Brilinta --Good renal function, will initiate Lovenox 40mg SC daily Case discussed with Dr Emma Gaitan PGY-2 - Date & Time Date: 10/10/18 Time: 07:10 <Vito Carter - Last Filed: 10/11/18 15:10> Results - Vital Signs Recent Vital Signs: Last Vital Signs Temp 98.6 F 10/11/18 12:00 Pulse 67 10/11/18 12:39 Resp 20 10/11/18 12:00 BP 142/76 10/11/18 12:39 Pulse Ox 99 10/11/18 12:00 - Labs Result Diagrams: 10/09/18 22:49 10/09/18 22:49 Labs: Laboratory Results - last 24 hr 10/10/18 10/10/18 10/11/18 16:45 21:15 05:17 POC Glucose (mg/dL) 144 H 278 H 209 H 10/11/18 11:32 POC Glucose (mg/dL) 128 H Assessment & Plan - Assessment and Plan (Free Text) Assessment: Patient was personally seen and examined by me in rounds with residents. Available labs and diagnostic data reviewed. Case, Patient's condition and management plan discussed with residents in rounds. Agree with resident's progress note. Plan: As ordered.
[2018-10-10] MEDS ORDERED: ROPINIROLE 0.25 MG PO SCH (09:00)
[2018-10-10] MEDS: Digoxin 125 mcg (0.125 mg) Tab PO SCH (09:24)
--- NOTE | 2018-10-10 09:36 | CARD ---
APPROVED REPORT Date of service: 10/10/2018 EKG Measurement Heart [id number] <Conclusion> Normal sinus rhythm Left anterior fascicular block Left ventricular hypertrophy with QRS widening Poor R wave progression in Precordial leads ST & T wave abnormality, consider anterolateral ischemia Abnormal ECG
--- NOTE | 2018-10-10 09:42 | CARD ---
APPROVED REPORT Date of service: 10/09/2018 EKG Measurement Heart [id number] CT 288P [id number] <Conclusion> Sinus rhythm with 1st degree AV block with premature atrial complexes Right bundle branch block Left anterior fascicular block Bifascicular block Left ventricular hypertrophy with repolarization abnormality Poor R wave progression in Precordial leads Abnormal ECG
[2018-10-10] MEDS ORDERED: Dextrose 50% SYRINGE Inj (50 ml) IV PRN (10:25)
[2018-10-10] MEDS ORDERED: Glucagon Recombinant 1 mg Inj IM PRN (10:25)
[2018-10-10] MEDS ORDERED: Albuterol-Ipratrop 3 mg / 0.5 (3 ml) UD INH PRN (10:28)
--- NOTE | 2018-10-10 10:57 | RAD ---
Date of service: 10/09/2018 HISTORY: Chest pain COMPARISON: 08/26/2018. FINDINGS: LUNGS: The lungs are well inflated and clear. PLEURA: No pleural effusions or pneumothorax. CARDIOVASCULAR: There is mild cardiomegaly. There are aortic atherosclerotic calcifications present. OSSEOUS STRUCTURES: Within normal limits for the patient's age. VISUALIZED UPPER ABDOMEN: Normal. OTHER FINDINGS: None. IMPRESSION: No active pulmonary disease.
--- NOTE | 2018-10-10 11:02 | CP.PCM.CON ---
History of Present Illness - History of Present Illness History of Present Illness: THE PATIENT IS A 72 YEAR OLD MALE WITH A HISTORY OF CAD, HYPERTENSION, COPD, OLD CVA, TYPE 2 DM, MS AND HE IS STILL A SMOKER. HE HAD AN STEMI ABOUT 4 YEARS AGO AND WENT TO [facility] ER AND A CODE HEART WAS INITIATED AND HE WAS TRANSFERRED TO [facility] FOR AN EMERGENCY CARDIAC CATH AND HE HAD STENT INSERTIONS AND DID WELL WITH A RESIDUAL LVEF OF ~ 40%. HE HAD AT LEAST A FEW NSTEMIS SINCE THEN AND DECLINED EMERGENCY CARDIAC CATHS TO SEE IF HE NEEDED MORE STENTS AND HIS LAST LVEF WAS ABOUT 10-15%. HE IS ALSO ADDICTED TO TRAMADOL AND ALWAYS COMES TO THE ER FOR PAIN AND RECEIVES TRAMADOL. HE NOW STATES THAT HE HAS HAD CHEST, NECK AND RIGHT SHOULDER PAIN ON AND OFF 10/08 AND 10/09 AND CAME TO THE ER AND WAS ADMITTED. HE RECEIVED TRAMADOL AGAIN AND IS NOW PAIN FREE. I WAS ASKED TO SEE HIM. Past Patient History - Infectious Disease Hx of Infectious Diseases: None - Tetanus Immunizations Tetanus Immunization: Unknown - Past Medical History & Family History Past Medical History?: Yes - Past Social History Smoking Status: Former Smoker - CARDIAC Hx Cardiac Disorders: Yes Hx Cardia Arrhythmia: Yes Hx Congestive Heart Failure: Yes Hx Hypercholesterolemia: Yes Hx Hypertension: Yes - PULMONARY Hx Respiratory Disorders: Yes Hx Asthma: Yes Hx Bronchitis: No Hx Chronic Obstructive Pulmonary Disease (COPD): Yes Hx Emphysema: Yes Hx Pneumonia: Yes - NEUROLOGICAL Hx Neurological Disorder: Yes Hx Multiple Sclerosis: Yes Hx Transient Ischemic Attacks (TIA): Yes - HEENT Hx HEENT Problems: No - RENAL Hx Chronic Kidney Disease: No - ENDOCRINE/METABOLIC Hx Endocrine Disorders: Yes Hx Diabetes Mellitus Type 2: Yes - HEMATOLOGICAL/ONCOLOGICAL Hx Blood Disorders: Yes Hx AIDS: No Hx Anemia: Yes Hx Human Immunodeficiency Virus (HIV): No - INTEGUMENTARY Hx Dermatological Problems: No - MUSCULOSKELETAL/RHEUMATOLOGICAL Hx Musculoskeletal Disorders: Yes Hx Arthritis: Yes Hx Falls: No Hx Fractures: Yes (bilateral feet) - GASTROINTESTINAL Hx Gastrointestinal Disorders: No - GENITOURINARY/GYNECOLOGICAL Hx Genitourinary Disorders: Yes - PSYCHIATRIC Hx Psychophysiologic Disorder: Yes Hx Anxiety: Yes Hx Depression: Yes Hx Substance Use: No - SURGICAL HISTORY Hx Surgeries: Yes Hx Cholecystectomy: Yes Hx Coronary Artery Bypass Graft: No Hx Coronary Stent: Yes (x3) - ANESTHESIA Hx Anesthesia: Yes Hx Anesthesia Reactions: No Hx Malignant Hyperthermia: No Has any member of the family had a problem w/ anesthesia?: No Meds Home Medications: Home Medication List Medication Instructions Recorded Confirmed Type traMADol [Ultram] 50 mg PO Q8 #15 tab 10/10/18 Rx Digoxin 0.125 mg PO DAILY #30 tab 10/13/18 Rx rOPINIRole [Requip] 0.25 mg PO BID #60 tab 10/13/18 Rx Allergies/Adverse Reactions: Allergies Allergy/AdvReac Type Severity Reaction Status Date / Time codeine Allergy Intermediate HEADACHE Verified 10/09/18 22:07 ampicillin Allergy RASH Verified 10/09/18 22:07 - Medications Medications: Current Medications Albuterol/Ipratropium (Duoneb 3 Mg/0.5 Mg (3 Ml) Ud) 3 ml INH RQ4 PRN PRN Reason: Shortness of Breath Aspirin (Ecotrin) 81 mg PO DAILY [facility] Last Admin: 10/10/18 09:24 Dose: 81 mg Atorvastatin Calcium (Lipitor) 20 mg PO HS [facility] Dextrose (Dextrose 50% Inj) 0 ml IV STAT PRN; Protocol PRN Reason: Hypoglycemia Protocol Dextrose (Glutose 15) 0 gm PO ONCE PRN; Protocol PRN Reason: Hypoglycemia Protocol Digoxin (Digoxin) 0.125 mg PO DAILY [facility] Last Admin: 10/10/18 09:24 Dose: 0.125 mg Enoxaparin Sodium (Lovenox) 40 mg SC DAILY [facility]; Protocol Glucagon (Glucagen Diagnostic Kit) 0 mg IM STAT PRN; Protocol PRN Reason: Hypoglycemia Protocol Home Med (Melatonin [Melatin]) 3 mg PO HS [facility] Home Med (Ropinirole [Requip]) 0.25 mg PO BID [facility] Insulin Human Lispro (Humalog) 0 units SC ACCU-CHECK [facility]; Protocol Isosorbide Mononitrate (Imdur) 60 mg PO DAILY [facility] Last Admin: 10/10/18 09:25 Dose: 60 mg Lisinopril (Zestril) 10 mg PO DAILY [facility] Metformin HCl (Glucophage) 500 mg PO DAILY [facility] Last Admin: 10/10/18 09:24 Dose: 500 mg Metoprolol Tartrate (Lopressor) 75 mg PO Q12 [facility] Last Admin: 10/10/18 09:26 Dose: 75 mg Nitroglycerin (Nitrostat Sl Tab) 0.4 mg SL Q5MIN PRN PRN Reason: chest pain Sertraline HCl (Zoloft) 50 mg PO DAILY [facility] Last Admin: 10/10/18 09:27 Dose: 50 mg Tamsulosin HCl (Flomax) 0.4 mg PO DAILY [facility] Last Admin: 10/10/18 09:24 Dose: 0.4 mg Ticagrelor (Brilinta) 90 mg PO Q12 [facility] Last Admin: 10/10/18 09:23 Dose: 90 mg Tramadol HCl (Ultram) 50 mg PO Q8H PRN PRN Reason: Pain, moderate (4-7) Last Admin: 10/10/18 09:34 Dose: 50 mg Physical Exam - Respiratory Exam Respiratory Exam: Clear to Auscultation Bilateral - Cardiovascular Exam Cardiovascular Exam: REGULAR RHYTHM, +S1, +S2 - Extremities Exam Additional comments: NO LE EDEMA - Additional Findings Additional findings: EKG NSR, LVE, POOR R WAVE PROGRESSION IN THE V LEADS, AL TWAVE INVERSIONS(OLD FINDINGS) TROPONIN NORMAL X 3 Results - Vital Signs Recent Vital Signs: Last Vital Signs Temp 97.8 F 10/10/18 07:59 Pulse 65 10/10/18 09:26 Resp 20 10/10/18 07:59 BP 133/76 10/10/18 09:26 Pulse Ox 96 10/10/18 07:59 - Labs Result Diagrams: 10/12/18 04:30 10/12/18 04:30 Labs: Laboratory Results - last 24 hr 10/09/18 10/09/18 10/09/18 22:33 22:49 22:49 WBC 7.6 RBC 3.87 L Hgb 11.9 L Hct 35.6 MCV 91.8 D MCH 30.8 MCHC 33.6 RDW 14.6 H Plt Count 242 MPV 8.5 Neut % (Auto) 59.3 Lymph % (Auto) 26.2 [place] % (Auto) 8.8 Eos % (Auto) 4.6 H Baso % (Auto) 1.1 Neut # (Auto) 4.5 Lymph # (Auto) 2.0 [place] # (Auto) 0.7 Eos # (Auto) 0.4 Baso # (Auto) 0.1 PT INR APTT Sodium 135 Potassium 3.7 Chloride 99 Carbon Dioxide 25 Anion Gap 15 BUN 14 Creatinine 0.8 Est GFR ( Amer) > 60 Est GFR (Non-Af Amer) > 60 Random Glucose 266 H Calcium 9.4 Phosphorus 3.6 Magnesium 1.7 Total Bilirubin 0.4 AST 22 ALT 24 Alkaline Phosphatase 77 Troponin I 0.0350 NT-Pro-B Natriuret Pep 3320 H Total Protein 7.3 Albumin 4.3 Globulin 3.0 Albumin/Globulin Ratio 1.4 Digoxin Blood Type A POSITIVE Antibody Screen Negative BBK History Checked Patient has bt 10/09/18 10/09/18 10/10/18 22:49 22:49 07:25 WBC RBC Hgb Hct MCV MCH MCHC RDW Plt Count MPV Neut % (Auto) Lymph % (Auto) [place] % (Auto) Eos % (Auto) Baso % (Auto) Neut # (Auto) Lymph # (Auto) [place] # (Auto) Eos # (Auto) Baso # (Auto) PT 13.5 H INR 1.2 APTT 32.6 Sodium Potassium Chloride Carbon Dioxide Anion Gap BUN Creatinine Est GFR ( Amer) Est GFR (Non-Af Amer) Random Glucose Calcium Phosphorus Magnesium Total Bilirubin AST ALT Alkaline Phosphatase Troponin I 0.0930 NT-Pro-B Natriuret Pep Total Protein Albumin Globulin Albumin/Globulin Ratio Digoxin 0.5 L Blood Type Antibody Screen BBK History Checked Assessment & Plan - Assessment and Plan (Free Text) Assessment: CAD WITH OLD STEMI WITH CODE HEART AND CORONARY STENT INSERTIONS ABOUT FOUR YEARS AGO WITH AT LEAST A FEW NSTEMIS SINCE THEN AND HE REFUSED INVASIVE FOSTER AND TREATMENT ON THOSE TIMES. NOW WITH CHEST PAIN FOR TWO DAYS BUT HE IS CHEST PAIN FREE TODAY AND THERE ARE NOT ANY NEW EKG CHANGES AND THE TROPONINS ARE NORMAL. HYPERTENSION COPD AND STILL AN ACTIVE SMOKER TYPE 2 DM OLD CVA MS Plan: THE PATIENT WAS ADMITTED TO ON TELEMETRY O2, ASPIRIN, BRILINTA, LOVENOX, DIGOXIN, NITRATES, METOPROLOL, LISINOPRIL, ATORVASTATIN, METFORMEN, DUONEB THE PATIENT IS STILL REFUSING A CARDIAC CATH OR EVEN A NUCLEAR STRESS TEST
[2018-10-10] MEDS: Insulin Lispro (humaLOG) 100 Units/ml Inj SC SCH ×3 (13:00→22:07)
[2018-10-10] MEDS: Enoxaparin 40 mg Syringe SC SCH (17:34)
[2018-10-10] MEDS ORDERED: MELATONIN 3 MG PO SCH (22:00)
[2018-10-11] MEDS: Insulin Lispro (humaLOG) 100 Units/ml Inj SC SCH ×4 (08:30→23:07)
[2018-10-11] MEDS: Enoxaparin 40 mg Syringe SC SCH (08:31)
[2018-10-11] MEDS: Digoxin 125 mcg (0.125 mg) Tab PO SCH (08:37)
--- NOTE | 2018-10-11 09:42 | PN ---
DATE: 10/10/2018 SUBJECTIVE: The patient seen and examined. Interim events noted. Consults noted and appreciated. Cardiology followup and intervention noted and appreciated. The patient remains in progressive care unit on telemetry monitoring. The patient feels better, does not complain of chest pain, complains of back pain and other joint pain, no shortness of breath. PHYSICAL EXAMINATION: GENERAL: The patient is in no acute distress. VITAL SIGNS: Stable. HEART: S1 and S2. Normal and regular. LUNGS: Good bilateral air exchange. ABDOMEN: Soft, nontender. EXTREMITIES: No edema, no calf swelling, no tenderness, no acute ischemia. CENTRAL NERVOUS SYSTEM: Essentially unchanged. MUSCULOSKELETAL: Reveals signs of chronic arthritis without any acute change. DIAGNOSTIC DATA: Available diagnostic data reviewed. Telemetry monitoring does not show significant arrhythmia. ASSESSMENT: The patient adamantly refused further cardiac workup. PLAN: As ordered. Case and plan discussed with the patient. Vito Carter MD
[2018-10-12 06:35] LABS: HEMOGLOBIN 11.9 g/dL (12.0-18.0); MEAN CELL VOLUME 92.2 fl (80.0-94.0); MEAN CORPUSCULAR HEMOGLOBIN 31.2 pg (27.0-31.0); MEAN CORPUSCULAR HGB CONC 33.8 g/dL (33.0-37.0); RBC 3.81 Mil/uL (4.40-5.90); RED CELL DISTRIBUTION WIDTH 14.3 % (11.5-14.5); WHITE BLOOD COUNT 8.7 K/uL (4.8-10.8)
[2018-10-12 06:49] LABS: ALB/GLOB RATIO 1.3 (1.0-2.1); ALBUMIN 4.1 g/dL (3.5-5.0); ALT/SGPT 24 U/L (21-72); AST/SGOT 20 U/L (17-59); BLOOD UREA NITROGEN 24 mg/dl (9-20); CALCIUM 9.5 mg/dL (8.4-10.2); GFR NON-AFRICAN AMERICAN > 60
[2018-10-12] MEDS: Digoxin 125 mcg (0.125 mg) Tab PO SCH (08:39)
[2018-10-12] MEDS: Insulin Lispro (humaLOG) 100 Units/ml Inj SC SCH ×4 (08:41→23:12)
[2018-10-12] MEDS: Enoxaparin 40 mg Syringe SC SCH (08:43)
--- NOTE | 2018-10-12 09:12 | PN ---
DATE: 10/12/2018 SUBJECTIVE: The patient is seen and examined. Interim events noted. The patient remains in progressive care unit on telemetry monitoring. The patient still complains of chronic arthritis pain. No chest pain or shortness of breath. PHYSICAL EXAMINATION: GENERAL: The patient is in no acute distress. VITAL SIGNS: Stable. HEART: S1 and S2, normal and regular. LUNGS: Good bilateral air exchange. ABDOMEN: Soft and nontender. EXTREMITIES: No edema. No calf swelling. No tenderness. No acute ischemia. CENTRAL NERVOUS SYSTEM: Essentially unchanged. DIAGNOSTIC DATA: Available diagnostic data reviewed. Telemetry monitoring does reveal significant erythema. ASSESSMENT AND PLAN: Overall, the patient's general medical condition is stable. Plan as ordered. Vito Carter MD
--- NOTE | 2018-10-12 12:50 | CP.PCM.PN ---
Subjective - Date & Time of Evaluation Date of Evaluation: 10/12/18 Time of Evaluation: 11:00 - Subjective Subjective: NO CHEST PAIN OR SOB Objective - Vital Signs/Intake and Output Vital Signs (last 24 hours): Temp Pulse Resp BP Pulse Ox 98.3 F 70 20 104/54 L 96 10/12/18 08:21 10/12/18 08:43 10/12/18 08:21 10/12/18 08:43 10/12/18 08:21 - Medications Medications: Current Medications Albuterol/Ipratropium (Duoneb 3 Mg/0.5 Mg (3 Ml) Ud) 3 ml INH RQ4 PRN PRN Reason: Shortness of Breath Last Admin: 10/12/18 10:33 Dose: 3 ml Aspirin (Ecotrin) 81 mg PO DAILY [facility] Last Admin: 10/12/18 08:40 Dose: 81 mg Atorvastatin Calcium (Lipitor) 20 mg PO HS [facility] Last Admin: 10/11/18 21:51 Dose: 20 mg Dextrose (Dextrose 50% Inj) 0 ml IV STAT PRN; Protocol PRN Reason: Hypoglycemia Protocol Dextrose (Glutose 15) 0 gm PO ONCE PRN; Protocol PRN Reason: Hypoglycemia Protocol Digoxin (Digoxin) 0.125 mg PO DAILY [facility] Last Admin: 10/12/18 08:39 Dose: 0.125 mg Enoxaparin Sodium (Lovenox) 40 mg SC DAILY [facility]; Protocol Last Admin: 10/12/18 08:43 Dose: 40 mg Glucagon (Glucagen Diagnostic Kit) 0 mg IM STAT PRN; Protocol PRN Reason: Hypoglycemia Protocol Home Med (Melatonin [Melatin]) 3 mg PO [facility] Home Med (Ropinirole [Requip]) 0.25 mg PO BID [facility] Insulin Human Lispro (Humalog) 0 units SC ACCU-CHECK [facility]; Protocol Last Admin: 10/12/18 08:41 Dose: 2 units Isosorbide Mononitrate (Imdur) 60 mg PO DAILY [facility] Last Admin: 10/11/18 12:39 Dose: 60 mg Lisinopril (Zestril) 10 mg PO DAILY [facility] Last Admin: 10/12/18 08:43 Dose: 10 mg Metformin HCl (Glucophage) 1,000 mg PO DAILY [facility] Last Admin: 10/12/18 08:41 Dose: 1,000 mg Metoprolol Tartrate (Lopressor) 75 mg PO Q12 [facility] Last Admin: 10/11/18 21:51 Dose: 75 mg Nitroglycerin (Nitrostat Sl Tab) 0.4 mg SL Q5MIN PRN PRN Reason: chest pain Sertraline HCl (Zoloft) 50 mg PO DAILY [facility] Last Admin: 10/12/18 08:44 Dose: 50 mg Tamsulosin HCl (Flomax) 0.4 mg PO DAILY [facility] Last Admin: 10/12/18 08:40 Dose: 0.4 mg Ticagrelor (Brilinta) 90 mg PO Q12 [facility] Last Admin: 10/12/18 08:39 Dose: 90 mg Tramadol HCl (Ultram) 50 mg PO Q8H PRN PRN Reason: Pain, moderate (4-7) Last Admin: 10/12/18 08:52 Dose: 50 mg - Labs Labs: 10/12/18 04:30 10/12/18 04:30 PT 13.5 Seconds (9.8-13.1) H 10/09/18 22:49 INR 1.2 10/09/18 22:49 APTT 32.6 Seconds (25.6-37.1) 10/09/18 22:49 - Respiratory Exam Respiratory Exam: Clear to Ausculation Bilateral - Cardiovascular Exam Cardiovascular Exam: REGULAR RHYTHM, +S1, +S2 - Extremities Exam Additional comments: NO LE EDEMA - Additional Findings Additional findings: 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
[2018-10-13 00:31] VITALS: RESP 18
[2018-10-13] MEDS: Enoxaparin 40 mg Syringe SC SCH (08:37)
[2018-10-13] MEDS: Insulin Lispro (humaLOG) 100 Units/ml Inj SC SCH ×2 (08:38→12:17)
[2018-10-13] MEDS: Digoxin 125 mcg (0.125 mg) Tab PO SCH (08:44)
[2018-10-13 08:50] VITALS: PULSE 99
--- NOTE | 2018-10-13 09:30 | CP.PCM.PN ---
Subjective - Date & Time of Evaluation Date of Evaluation: 10/13/18 Time of Evaluation: 08:15 - Subjective Subjective: NO CHEST PAIN OR SOB THIS MORNING Objective - Vital Signs/Intake and Output Vital Signs (last 24 hours): Temp Pulse Resp BP Pulse Ox 98.1 F 99 H 18 95/55 L 99 10/13/18 08:03 10/13/18 08:43 10/13/18 08:03 10/13/18 08:43 10/13/18 08:03 - Medications Medications: Current Medications Albuterol/Ipratropium (Duoneb 3 Mg/0.5 Mg (3 Ml) Ud) 3 ml INH RQ4 PRN PRN Reason: Shortness of Breath Last Admin: 10/12/18 10:33 Dose: 3 ml Aspirin (Ecotrin) 81 mg PO DAILY [facility] Last Admin: 10/13/18 08:44 Dose: 81 mg Atorvastatin Calcium (Lipitor) 20 mg PO HS [facility] Last Admin: 10/12/18 21:32 Dose: 20 mg Dextrose (Dextrose 50% Inj) 0 ml IV STAT PRN; Protocol PRN Reason: Hypoglycemia Protocol Dextrose (Glutose 15) 0 gm PO ONCE PRN; Protocol PRN Reason: Hypoglycemia Protocol Digoxin (Digoxin) 0.125 mg PO DAILY [facility] Last Admin: 10/13/18 08:44 Dose: 0.125 mg Enoxaparin Sodium (Lovenox) 40 mg SC DAILY [facility]; Protocol Last Admin: 10/13/18 08:37 Dose: 40 mg Glucagon (Glucagen Diagnostic Kit) 0 mg IM STAT PRN; Protocol PRN Reason: Hypoglycemia Protocol Home Med (Melatonin [Melatin]) 3 mg PO [facility] Home Med (Ropinirole [Requip]) 0.25 mg PO BID [facility] Insulin Human Lispro (Humalog) 0 units SC ACCU-CHECK [facility]; Protocol Last Admin: 10/13/18 08:38 Dose: 1 units Isosorbide Mononitrate (Imdur) 60 mg PO DAILY [facility] Last Admin: 10/13/18 08:38 Dose: 60 mg Lisinopril (Zestril) 10 mg PO DAILY [facility] Last Admin: 10/13/18 08:43 Dose: 10 mg Metformin HCl (Glucophage) 1,000 mg PO DAILY [facility] Last Admin: 10/13/18 08:43 Dose: 1,000 mg Metoprolol Tartrate (Lopressor) 75 mg PO Q12 [facility] Last Admin: 10/13/18 08:42 Dose: Not Given Nitroglycerin (Nitrostat Sl Tab) 0.4 mg SL Q5MIN PRN PRN Reason: chest pain Sertraline HCl (Zoloft) 50 mg PO DAILY [facility] Last Admin: 10/13/18 08:39 Dose: 50 mg Tamsulosin HCl (Flomax) 0.4 mg PO DAILY [facility] Last Admin: 10/13/18 08:39 Dose: 0.4 mg Ticagrelor (Brilinta) 90 mg PO Q12 [facility] Last Admin: 10/13/18 08:44 Dose: 90 mg Tramadol HCl (Ultram) 50 mg PO Q8 PRN PRN Reason: Pain, moderate (4-7) Last Admin: 10/13/18 08:36 Dose: 50 mg - Labs Labs: 10/12/18 04:30 10/12/18 04:30 PT 13.5 Seconds (9.8-13.1) H 10/09/18 22:49 INR 1.2 10/09/18 22:49 APTT 32.6 Seconds (25.6-37.1) 10/09/18 22:49 - Respiratory Exam Respiratory Exam: Clear to Ausculation Bilateral - Cardiovascular Exam Cardiovascular Exam: REGULAR RHYTHM, +S1, +S2 - Extremities Exam Additional comments: NO LE EDEMA - Additional Findings 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
[2018-10-13 11:51] VITALS: BP 122/53; PULSE 74; TEMP 98.2; O2SAT 97
--- NOTE | 2018-10-13 20:03 | PN ---
DATE: 10/13/2018 SUBJECTIVE: The patient seen and examined. Interim events noted. Consults noted and appreciated. Cardiology followup and intervention noted and appreciated. The patient remains in progressive care unit, on telemetry monitoring. The patient feels okay. Denies any chest pain or shortness of breath. Chronic arthritis pain is present but controlled. No other complaints. PHYSICAL EXAMINATION: GENERAL: The patient is in no acute distress. VITAL SIGNS: Stable. HEART: S1 and S2 normal, regular. LUNGS: Good bilateral air exchange. ABDOMEN: Soft, nontender. EXTREMITIES: No edema. No calf swelling. No tenderness. No acute ischemia. 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 DIAGNOSTIC DATA: Available diagnostic data reviewed. Telemetry monitoring does not reveal significant arrhythmias. ASSESSMENT AND PLAN: Overall, the patient is medically stable. We will discharge the patient home. The patient will be followed up by Dr. House. Plan as ordered. Case and plan discussed with the patient. Vito Carter MD
--- NOTE | 2018-10-14 14:18 | PQF ---
PROVIDER RESPONSE TEXT: Chronic CHF, systolic dysfunction --Last echo in 12/2017: LVEF 20% with LVH --C/w home meds: Lisinopr il , Metoprolol, Digoxin --Cardiology consult, Dr House. REVIEWER QUERY TEXT: CHF Acuity and Type Physician?s Documentation Request This Form is Not a Permanent Document in the Medical Record Pt Name: MAURO GUTIERREZ MR #: [id number] Payor: MEDICARE PART A Unit/Bed: [id number].[id number] Adm Date: 10/09/2018 11:18:00 PM Reviewer: Gissel Carvalho Ext. Query Date: 10/14/2018 12:41:00 PM CHF Acuity and Type [id number] By submitting this query, we are merely seeking further clarification of documentation to accurately reflect all conditions that you are monitoring, evaluating, treating or that extend the hospitalizati on or utilize additional resources of care. Please utilize your independent clinical judgment when ad dressing the question(s) below. Dear Doctor Vito Carter, The patient?s Clinical Indicators include: XXX PLEASE CLARIFY TYPE AND ACUITY OF CHF? Congestive Heart Failure is documented in the Medical Record. Please document the type and acuity (in cludes probable or suspected) Such as: Type: -- Systolic -- Diastolic -- Combined -- Other, please specify Acuity: -- Acute -- Chronic -- Acute on chronic -- Other, please specify Also please document the underlying cause of the CHF (includes probable or suspected) PLEASE DOCUMENT ANY ADDITIONAL DIAGNOSES AND/OR SPECIFICITY IN THE PROGRESS NOTES AND/OR DISCHARGE MATHEWS MMARY. Clinically unable to determine/unknown Disagree with the above request Need to discuss Query created by: Gissel Carvalho on 10/14/2018 12:41 PM Electronically signed by: Vito Carter 10/14/2018 2:14 PM
--- NOTE | 2018-10-15 12:55 | PQF ---
PROVIDER RESPONSE TEXT: Chest pain most likely secondary to extensive cardiac history including CAD, STEMI with stents, sever al NSTEMIs, HTN, CHF, HL REVIEWER QUERY TEXT: Condition Necessitating Admission Physician?s Documentation Request This Form is Not a Permanent Document in the Medical Record Pt Name: MAURO GUTIERREZ MR #: [id number] Payor: MEDICARE PART A Unit/Bed: [id number].TEL-[id number] Adm Date: 10/09/2018 11:18:00 PM Reviewer: Gissel Carvalho Ext. Query Date: 10/14/2018 12:36:00 PM Condition Necessitating Admission [id number] By submitting this query, we are merely seeking further clarification of documentation to accurately reflect all conditions that you are monitoring, evaluating, treating or that extend the hospitalizati on or utilize additional resources of care. Please utilize your independent clinical judgment when ad dressing the question(s) below. Dear Doctor Vito Carter, The patient?s Clinical Indicators include: xxx PLEASE CLARIFY THE PRINCIPAL DIAGNOSIS NECESSITATING THE ADMISSION AFTER WORK-UP WAS COMPLETED? PLEASE CLARIFY THE POSSIBLE ETIOLOGY OF CHEST PAIN ? Please clarify the medical conditions and the associated clinical risk factors necessitating admissio n. PLEASE DOCUMENT ANY ADDITIONAL DIAGNOSES AND/OR SPECIFICITY IN THE PROGRESS NOTES AND/OR DISCHARGE MATHEWS MMARY. Clinically unable to determine/unknown Disagree with the above request Need to discuss Query created by: Gissel Carvalho on 10/14/2018 12:36 PM Electronically signed by: Vito Carter 10/15/2018 12:53 PM
== END 2018-10-13 12:50 | disposition home health service (06) | DRG 303 ==
LOC: H.ER 22:05 → OBSVTOIN 23:18 → H.ERHOLD 23:18 → H.TEL 10-10 02:36
PROVIDERS: ADMIT Internal Medicine; ATTEND Internal Medicine
DX: I25.10 Atherosclerotic heart disease of native coronary artery without angina pectoris (principal); I50.22 Chronic systolic (congestive) heart failure; I11.0 Hypertensive heart disease with heart failure; R07.89 Other chest pain; E11.9 Type 2 diabetes mellitus without complications; E78.00 Pure hypercholesterolemia, unspecified; E78.5 Hyperlipidemia, unspecified; F17.200 Nicotine dependence, unspecified, uncomplicated; G35 Multiple sclerosis; G89.29 Other chronic pain; I25.2 Old myocardial infarction; J43.9 Emphysema, unspecified; M19.90 Unspecified osteoarthritis, unspecified site; N40.0 Benign prostatic hyperplasia without lower urinary tract symptoms; Z79.82 Long term (current) use of aspirin; Z86.73 Personal history of transient ischemic attack (TIA), and cerebral infarction without residual deficits; Z87.01 Personal history of pneumonia (recurrent); Z90.49 Acquired absence of other specified parts of digestive tract; Z95.5 Presence of coronary angioplasty implant and graft; D64.9 Anemia, unspecified; F32.9 Major depressive disorder, single episode, unspecified; F41.9 Anxiety disorder, unspecified; Z79.84 Long term (current) use of oral hypoglycemic drugs; Z79.899 Other long term (current) drug therapy

== ENCOUNTER 2018-10-19 22:43 | Observation (INO) | payer MEDICARE ==
[2018-10-19 22:43] VITALS: BMI 19.5
[2018-10-19] MEDS ORDERED: Nitroglycerin 2% Ointment Foilpak UD TOP STA (23:49)
[2018-10-19 23:54] LABS: BASO % 0.2 % (0.0-2.0); EOS # 0.3 K/uL (0.0-0.7); EOS % 4.6 % (0.0-4.0); HEMOGLOBIN 11.5 g/dL (12.0-18.0); LYMPH # 1.9 K/uL (1.0-4.3); LYMPH % 26.3 % (20.0-40.0); MEAN CELL VOLUME 92.3 fl (80.0-94.0); MEAN CORPUSCULAR HGB CONC 33.6 g/dL (33.0-37.0); MEAN PLATELET VOLUME 7.9 fl (7.2-11.7); MONO # 0.6 K/uL (0.0-0.8); MONO % 7.8 % (0.0-10.0); NEUT # 4.4 K/uL (1.8-7.0); NEUT % 61.1 % (50.0-75.0); NRBC % 0.1 % (0.0-0.0); RBC 3.71 Mil/uL (4.40-5.90); RED CELL DISTRIBUTION WIDTH 13.8 % (11.5-14.5); WHITE BLOOD COUNT 7.2 K/uL (4.8-10.8)
[2018-10-19 23:55] LABS: INR 1.3; PROTHROMBIN TIME 14.3 Seconds (9.8-13.1)
[2018-10-19 23:58] LABS: PARTIAL THROMBOPLASTIN TIME 33.3 Seconds (25.6-37.1)
[2018-10-20 00:04] LABS: ALB/GLOB RATIO 1.4 (1.0-2.1); ALBUMIN 4.3 g/dL (3.5-5.0); ALT/SGPT 23 U/L (21-72); AST/SGOT 18 U/L (17-59); BLOOD UREA NITROGEN 13 mg/dl (9-20); CALCIUM 9.2 mg/dL (8.4-10.2); GFR NON-AFRICAN AMERICAN > 60
[2018-10-20 00:09] LABS: B-TYPE NATRIURETIC PEPTIDE 2900 pg/ml (0-900)
[2018-10-20] MEDS ORDERED: Nitroglycerin 2% Ointment Foilpak UD TOP ONE (00:16)
--- NOTE | 2018-10-20 00:32 | ED PDOC ---
HPI: Chest Pain Time Seen by Provider: 10/19/18 22:52 Chief Complaint (Nursing): Chest Pain Chief Complaint (Provider): Chest Pain History Per: Patient History/Exam Limitations: no limitations Onset/Duration Of Symptoms: Hrs (2) Past Medical History Vital Signs: Last Vital Signs Temp 98.2 F 10/19/18 22:45 Pulse 70 10/20/18 00:18 Resp 16 10/19/18 22:45 BP 133/74 10/20/18 00:18 Pulse Ox 97 10/19/18 22:45 Primary Care Physician: Vito Carter MD - Medical History PMH: Anemia, Anxiety, Arthritis, Asthma, Benign Prostatic Hyperplasia, CAD, Cardia Arrhythmia, CHF, COPD, CVA, Depression, Diabetes, Emphysema, Fractures (bilateral feet), HTN, Hypercholesterolemia, Hyperlipidemia, Multiple Sclerosis, Pneumonia, TIA Denies: Bronchitis, HIV, Chronic Kidney Disease - Surgical History Surgical History: Cholecystectomy, Coronary Stent (x3) Denies: CABG - Family History Family History: States: Unknown Family Hx, Diabetes - Home Medications Home Medications: Ambulatory Orders Medication Instructions Recorded Sertraline [Zoloft] 50 mg PO DAILY #30 tab 09/18/17 Tamsulosin [Flomax] 0.4 mg PO DAILY #30 cap 09/18/17 Nitroglycerin [Nitrostat SL Tab] 0.4 mg SL Q5MIN PRN 04/24/18 Aspirin [Ecotrin] 81 mg PO DAILY #100 tabec 04/30/18 Isosorbide Mononitrate ER [Imdur 60 mg PO DAILY 05/16/18 ER] Lisinopril [Zestril] 10 mg PO DAILY 05/16/18 Melatonin [Melatin] 3 mg PO HS 05/16/18 Ticagrelor [Brilinta] 90 mg PO Q12 05/16/18 Atorvastatin [Lipitor] 20 mg PO HS 08/12/18 metFORMIN [glucOPHAGE] 500 mg PO DAILY 08/12/18 Metoprolol Tartrate [Lopressor] 75 mg PO Q12 #60 tab 08/26/18 traMADol [Ultram] 50 mg PO Q8 #15 tab 10/10/18 Digoxin 0.125 mg PO DAILY #30 tab 10/13/18 rOPINIRole [Requip] 0.25 mg PO BID #60 tab 04/22/19 - Allergies Allergies/Adverse Reactions: Allergies Allergy/AdvReac Type Severity Reaction Status Date / Time codeine Allergy Intermediate HEADACHE Verified 10/20/18 00:21 ampicillin Allergy RASH Verified 10/20/18 00:21 Review of Systems ROS Statement: Except As Marked, All Systems Reviewed And Found Negative Cardiovascular: Positive for: Chest Pain Respiratory: Positive for: Shortness of Breath Gastrointestinal: Negative for: Nausea, Vomiting Physical Exam - Reviewed Nursing Documentation Reviewed: Yes Vital Signs Reviewed: Yes - Physical Exam Appears: Positive for: Well, Non-toxic, No Acute Distress Head Exam: Positive for: ATRAUMATIC, NORMAL INSPECTION, NORMOCEPHALIC Skin: Positive for: Normal Color, Warm, Dry Eye Exam: Positive for: EOMI, Normal appearance, PERRL ENT: Positive for: Normal ENT Inspection Neck: Positive for: Normal, Painless ROM Cardiovascular/Chest: Positive for: Regular Rate, Rhythm. Negative for: Murmur Respiratory: Positive for: Normal Breath Sounds. Negative for: Wheezing Gastrointestinal/Abdominal: Positive for: Normal Exam, Soft. Negative for: Tenderness Back: Positive for: Normal Inspection. Negative for: L CVA Tenderness, R CVA Tenderness Extremity: Positive for: Normal ROM Neurological/Psych: Positive for: Awake, Alert, Normal Tone, Oriented (x3). Negative for: Motor/Sensory Deficits - Laboratory Results Result Diagrams: 10/19/18 23:44 10/19/18 23:44 Lab Results: PT 14.3 Seconds (9.8-13.1) H 10/19/18 23:44 INR 1.3 10/19/18 23:44 APTT 33.3 Seconds (25.6-37.1) 10/19/18 23:44 Troponin I 0.0240 ng/mL (0.00-0.120) 10/19/18 23:44 NT-Pro-B Natriuret Pep 2900 pg/ml (0-900) H 10/19/18 23:44 Total Bilirubin 0.4 mg/dl (0.2-1.3) 10/19/18 23:44 AST 18 U/L (17-59) 10/19/18 23:44 ALT 23 U/L (21-72) 10/19/18 23:44 Alkaline Phosphatase 66 U/L (38-126) 10/19/18 23:44 Total Protein 7.4 G/DL (6.3-8.2) 10/19/18 23:44 Albumin 4.3 g/dL (3.5-5.0) 10/19/18 23:44 Globulin 3.1 gm/dL (2.2-3.9) 10/19/18 23:44 Albumin/Globulin Ratio 1.4 (1.0-2.1) 10/19/18 23:44 - ECG O2 Sat by Pulse Oximetry: 97 Medical Decision Making Medical Decision Making: Time: 2253 Initial Impression: Chest pain and multiple risk factors. Initial Plan: -EKG -CMP -B-type natriuretic peptide -Troponin -CBC -PTT -Prothrombin time -X-RAY -Aspirin 324mg PO -Nitro-BID 1 ea -Ultram 50mg PO 0020: Labs reviewed, no clinical abnormalities with exception of elevated BNP, Case referred to Dr Carter for placement on Obs status DX Chest Pain Fair Scribe Attestation: Documented by Mildred Greer, acting as a scribe for Omid Franklin. Provider Scribe Attestation: All medical record entries made by the Scribe were at my direction and personally dictated by me. I have reviewed the chart and agree that the record accurately reflects my personal performance of the history, physical exam, medical decision making, and the department course for this patient. I have also personally directed, reviewed, and agree with the discharge instructions and disposition. Disposition - Clinical Impression Clinical Impression: Chest pain - Disposition Disposition Time: 23:30 Condition: STABLE
[2018-10-20] MEDS ORDERED: Insulin Regular 100 units/ml IV ONE (01:13)
[2018-10-20] MEDS ORDERED: NITROGLYCERIN 0.4 MG SL PRN (06:27)
--- NOTE | 2018-10-20 08:02 | RAD ---
Date of service: 10/19/2018 HISTORY: chest pain COMPARISON: Portable chest 10/09/2018. TECHNIQUE: 1 view obtained. FINDINGS: LUNGS: No active pulmonary disease. PLEURA: No significant pleural effusion identified, no pneumothorax apparent. CARDIOVASCULAR: Calcific atherosclerotic changes are seen related to the thoracic aorta. Normal cardiac size. No pulmonary vascular congestion. OSSEOUS STRUCTURES: No significant abnormalities. VISUALIZED UPPER ABDOMEN: Surgical clips again noted right upper quadrant abdomen. OTHER FINDINGS: None. IMPRESSION: No interval acute cardiopulmonary disease appreciated.
[2018-10-20 08:43] LABS: HEMOGLOBIN 11.2 g/dL (12.0-18.0); MEAN CELL VOLUME 93.1 fl (80.0-94.0); MEAN CORPUSCULAR HEMOGLOBIN 31.4 pg (27.0-31.0); MEAN CORPUSCULAR HGB CONC 33.7 g/dL (33.0-37.0); RBC 3.58 Mil/uL (4.40-5.90); RED CELL DISTRIBUTION WIDTH 13.8 % (11.5-14.5)
[2018-10-20] MEDS: Enoxaparin 40 mg Syringe SC SCH (08:52)
[2018-10-20] MEDS: Digoxin 125 mcg (0.125 mg) Tab PO SCH (08:54)
[2018-10-20] MEDS ORDERED: ROPINIROLE 0.25 MG PO SCH (09:00)
[2018-10-20 09:02] LABS: ALB/GLOB RATIO 1.3 (1.0-2.1); ALBUMIN 3.9 g/dL (3.5-5.0); ALT/SGPT 25 U/L (21-72); AST/SGOT 21 U/L (17-59); BLOOD UREA NITROGEN 12 mg/dl (9-20); CALCIUM 8.8 mg/dL (8.4-10.2); GFR NON-AFRICAN AMERICAN > 60
--- NOTE | 2018-10-20 09:33 | CP.PCM.CON ---
History of Present Illness - History of Present Illness History of Present Illness: THE PATIENT IS A 73 YEAR OLD MALE WHO IS WELL KNOWN TO ME. HE HAS A HISTORY OF CAD, HYPERTENSION, HYPERLIPIDEMIA, TYPE 2 DM, OLD CAV, MS AND HE IS A CURRENT SMOKER. HE HAD AN STEMI ABOUT 5 YEARS AGO UPON PRESENTATION TO THE [facility] ER AND A [facility] WAS CALLED AND HE WENT TO [facility] FOR A CARDIAC CATH AND HAD CORONARY STENT INSERTIONS AND HAD A LVEF OF ~ 40%. HE HAD AT LEAST A FEW NSTEMIS SINCE THEN AND HAS REFUSED INVASIVE CARDIAC TREATMENT WITH A CARDIAC CATH AND POSSIBLY NEW STENT INSERTIONS AND HIS LVEF IS NOW ~ 10-15%. HE HAS BASICALLY GIVEN UP AND STILL SMOKES CIGARETTES DESPITE MULTIPLE COUNSELINGS AGAINST IT, HE IS OFTEN NON-COMPLIANT WITH HIS MEDICINES AND DOESN'T TAKE CARE OF HIMSELF. HE IS ALSO ADDICTED TO TRAMADOL AND NOBODY WILL PRESCRIBE IT TO HIM AN OUT PATIENT AND HE OFTEN COMES TO THE ER COMPLAINING OF CHEST PAIN SEEKING TRAMADOL. HE TOLD ME THAT IS THE REASON WHY HE CAME TO THE ER THIS TIME. I WAS CALLED TO SEE HIM. HE RECEIVED TRAMADOL IN THE ER AND IS NOW CHEST PAIN FREE. Past Patient History - Infectious Disease Hx of Infectious Diseases: None - Tetanus Immunizations Tetanus Immunization: Unknown - Past Medical History & Family History Past Medical History?: Yes - Past Social History Smoking Status: Light Smoker < 10 Cigarettes Daily - CARDIAC Hx Cardia Arrhythmia: Yes Hx Congestive Heart Failure: Yes Hx Hypercholesterolemia: Yes Hx Hypertension: Yes - PULMONARY Hx Asthma: Yes Hx Bronchitis: No Hx Chronic Obstructive Pulmonary Disease (COPD): Yes Hx Emphysema: Yes Hx Pneumonia: Yes - NEUROLOGICAL Hx Multiple Sclerosis: Yes Hx Transient Ischemic Attacks (TIA): Yes - HEENT Hx HEENT Problems: No - RENAL Hx Chronic Kidney Disease: No - ENDOCRINE/METABOLIC Hx Endocrine Disorders: Yes Hx Diabetes Mellitus Type 2: Yes - HEMATOLOGICAL/ONCOLOGICAL Hx Anemia: Yes Hx Human Immunodeficiency Virus (HIV): No - INTEGUMENTARY Hx Dermatological Problems: No - MUSCULOSKELETAL/RHEUMATOLOGICAL Hx Arthritis: Yes Hx Fractures: Yes (bilateral feet) - GASTROINTESTINAL Hx Gastrointestinal Disorders: No - GENITOURINARY/GYNECOLOGICAL Hx Genitourinary Disorders: Yes - PSYCHIATRIC Hx Anxiety: Yes Hx Depression: Yes - SURGICAL HISTORY Hx Cholecystectomy: Yes Hx Coronary Artery Bypass Graft: No Hx Coronary Stent: Yes (x3) - ANESTHESIA Hx Anesthesia: Yes Hx Anesthesia Reactions: No Hx Malignant Hyperthermia: No Meds Allergies/Adverse Reactions: Allergies Allergy/AdvReac Type Severity Reaction Status Date / Time codeine Allergy Intermediate HEADACHE Verified 10/20/18 00:21 ampicillin Allergy RASH Verified 10/20/18 00:21 - Medications Medications: Current Medications Aspirin (Ecotrin) 81 mg PO DAILY [facility] Last Admin: 10/20/18 08:55 Dose: 81 mg Atorvastatin Calcium (Lipitor) 20 mg PO HS [facility] Digoxin (Digoxin) 0.125 mg PO DAILY [facility] Last Admin: 10/20/18 08:54 Dose: 0.125 mg Enoxaparin Sodium (Lovenox) 40 mg SC DAILY [facility]; Protocol Last Admin: 10/20/18 08:52 Dose: 40 mg Home Med (Melatonin [Melatin]) 3 mg PO HS [facility] Home Med (Ropinirole [Requip]) 0.25 mg PO BID [facility] Isosorbide Mononitrate (Imdur) 60 mg PO DAILY [facility] Last Admin: 10/20/18 08:56 Dose: 60 mg Lisinopril (Zestril) 10 mg PO DAILY [facility] Last Admin: 10/20/18 08:57 Dose: 10 mg Metformin HCl (Glucophage) 500 mg PO DAILYWM [facility] Last Admin: 10/20/18 08:55 Dose: 500 mg Metoprolol Tartrate (Lopressor) 75 mg PO Q12 [facility] Nitroglycerin (Nitrostat Sl Tab) 0.4 mg SL Q5M PRN PRN Reason: chest pain Sertraline HCl (Zoloft) 50 mg PO DAILY [facility] Last Admin: 10/20/18 08:55 Dose: 50 mg Spironolactone (Aldactone) 25 mg PO DAILY [facility] Last Admin: 10/20/18 08:53 Dose: 25 mg Tamsulosin HCl (Flomax) 0.4 mg PO DAILY [facility] Last Admin: 10/20/18 08:54 Dose: 0.4 mg Ticagrelor (Brilinta) 90 mg PO Q12 [facility] Last Admin: 10/20/18 08:56 Dose: 90 mg Tramadol HCl (Ultram) 50 mg PO Q8 [facility] Last Admin: 10/20/18 09:05 Dose: 50 mg Physical Exam - Respiratory Exam Respiratory Exam: Clear to Auscultation Bilateral - Cardiovascular Exam Cardiovascular Exam: REGULAR RHYTHM, +S1, +S2 - Extremities Exam Additional comments: NO LE EDEMA - Additional Findings Additional findings: EKG NSR, RBBB, OLD ASWMI TROPONINS NORMAL X 2 Results - Vital Signs Recent Vital Signs: Last Vital Signs Temp 98.2 F 10/20/18 08:02 Pulse 68 10/20/18 08:57 Resp 18 10/20/18 08:02 BP 144/71 10/20/18 08:57 Pulse Ox 100 10/20/18 08:02 - Labs Result Diagrams: 10/20/18 07:15 10/20/18 07:15 Labs: Laboratory Results - last 24 hr 10/19/18 10/19/18 10/19/18 23:44 23:44 23:44 WBC 7.2 RBC 3.71 L Hgb 11.5 L Hct 34.3 L MCV 92.3 MCH 31.0 MCHC 33.6 RDW 13.8 Plt Count 215 MPV 7.9 Neut % (Auto) 61.1 Lymph % (Auto) 26.3 [place] % (Auto) 7.8 Eos % (Auto) 4.6 H Baso % (Auto) 0.2 Neut # (Auto) 4.4 Lymph # (Auto) 1.9 [place] # (Auto) 0.6 Eos # (Auto) 0.3 Baso # (Auto) 0.0 PT 14.3 H INR 1.3 APTT 33.3 Sodium 134 Potassium 4.2 Chloride 97 L Carbon Dioxide 27 Anion Gap 14 BUN 13 Creatinine 0.8 Est GFR ( Amer) > 60 Est GFR (Non-Af Amer) > 60 POC Glucose (mg/dL) Random Glucose 388 H Calcium 9.2 Total Bilirubin 0.4 AST 18 ALT 23 Alkaline Phosphatase 66 Troponin I 0.0240 NT-Pro-B Natriuret Pep 2900 H Total Protein 7.4 Albumin 4.3 Globulin 3.1 Albumin/Globulin Ratio 1.4 10/20/18 10/20/18 10/20/18 07:15 07:15 07:15 WBC 7.0 RBC 3.58 L Hgb 11.2 L Hct 33.3 L MCV 93.1 MCH 31.4 H MCHC 33.7 RDW 13.8 Plt Count 216 MPV Neut % (Auto) Lymph % (Auto) [place] % (Auto) Eos % (Auto) Baso % (Auto) Neut # (Auto) Lymph # (Auto) [place] # (Auto) Eos # (Auto) Baso # (Auto) PT INR APTT Sodium 137 Potassium 4.1 Chloride 101 Carbon Dioxide 28 Anion Gap 12 BUN 12 Creatinine 0.8 Est GFR ( Amer) > 60 Est GFR (Non-Af Amer) > 60 POC Glucose (mg/dL) Random Glucose 200 H Calcium 8.8 Total Bilirubin 0.4 AST 21 ALT 25 Alkaline Phosphatase 60 Troponin I 0.0530 NT-Pro-B Natriuret Pep Total Protein 6.9 Albumin 3.9 Globulin 3.0 Albumin/Globulin Ratio 1.3 10/20/18 07:37 WBC RBC Hgb Hct MCV MCH MCHC RDW Plt Count MPV Neut % (Auto) Lymph % (Auto) [place] % (Auto) Eos % (Auto) Baso % (Auto) Neut # (Auto) Lymph # (Auto) [place] # (Auto) Eos # (Auto) Baso # (Auto) PT INR APTT Sodium Potassium Chloride Carbon Dioxide Anion Gap BUN Creatinine Est GFR ( Amer) Est GFR (Non-Af Amer) POC Glucose (mg/dL) 199 H Random Glucose Calcium Total Bilirubin AST ALT Alkaline Phosphatase Troponin I NT-Pro-B Natriuret Pep Total Protein Albumin Globulin Albumin/Globulin Ratio Assessment & Plan - Assessment and Plan (Free Text) Assessment: CAD WITH OLD STEMI WITH CORONARY STENT INSERTIONS AND MORE RECENT NSTEMIS HYPERTENSION HYPERLIPIDEMIA TYPE 2 DM Plan: THE PATIENT WAS ADMITTED TO ON TELEMETRY O2, METOPROLOL, NITRATES, ASPIRIN, BRILINTA, LISINOPRIL, ALDACTONE, LOVENOX, DM MEDICINES RECOMMEND W[employer] WORKER CONSULT PATIENT IS NOT ABLE TO TAKE CARE OF HIMSELF, IS NON-COMPLIANT WITH MEDICINES, HE STILL SMOKES CIGARETTES AND HE IS ADDICTED TO TRAMADOL
--- NOTE | 2018-10-20 10:14 | CARD ---
APPROVED REPORT Date of service: 10/19/2018 EKG Measurement Heart [id number] <Conclusion> Sinus rhythm with 1st degree AV block Right bundle branch block Left anterior fascicular block Bifascicular block Left ventricular hypertrophy with repolarization abnormality Poor R wave progression in Precordial leads Abnormal ECG
[2018-10-20] MEDS: Insulin Lispro (humaLOG) 100 Units/ml Inj SC SCH ×3 (12:06→22:19)
--- NOTE | 2018-10-20 12:38 | CP.PCM.CON ---
History of Present Illness - History of Present Illness History of Present Illness: Palliative Care consult Patient is a 73 year old male who came to the ED on 10/19/18 complaining of chest pain on that day. He has a history of non compliance, multiple hospitalizations. He was admitted to the telemetry unit for chest pain. PMH: anemia, anxiety, arthritis, CAD, Cardiac arrthymia, CHF, COPD, DMII, Emphy sema, HTN, HLD, MS Soc hx: Lives alone, current everyday smoker, Denies drug or etoh abuse Fam hx: Unknown 10/19 CXR: No interval acute cardiopulmonary disease Review of Systems - Review of Systems Review of Systems: obtained from the patient in bed - Musculoskeletal Musculoskeletal: Muscle Weakness Additional comments: reports weakness on the right side Past Patient History - Infectious Disease Hx of Infectious Diseases: None - Tetanus Immunizations Tetanus Immunization: Unknown - Past Medical History & Family History Past Medical History?: Yes - Past Social History Smoking Status: Light Smoker < 10 Cigarettes Daily - CARDIAC Hx Cardia Arrhythmia: Yes Hx Congestive Heart Failure: Yes Hx Hypercholesterolemia: Yes Hx Hypertension: Yes - PULMONARY Hx Asthma: Yes Hx Bronchitis: No Hx Chronic Obstructive Pulmonary Disease (COPD): Yes Hx Emphysema: Yes Hx Pneumonia: Yes - NEUROLOGICAL Hx Multiple Sclerosis: Yes Hx Transient Ischemic Attacks (TIA): Yes - HEENT Hx HEENT Problems: No - RENAL Hx Chronic Kidney Disease: No - ENDOCRINE/METABOLIC Hx Endocrine Disorders: Yes Hx Diabetes Mellitus Type 2: Yes - HEMATOLOGICAL/ONCOLOGICAL Hx Anemia: Yes Hx Human Immunodeficiency Virus (HIV): No - INTEGUMENTARY Hx Dermatological Problems: No - MUSCULOSKELETAL/RHEUMATOLOGICAL Hx Arthritis: Yes Hx Fractures: Yes (bilateral feet) - GASTROINTESTINAL Hx Gastrointestinal Disorders: No - GENITOURINARY/GYNECOLOGICAL Hx Genitourinary Disorders: Yes - PSYCHIATRIC Hx Anxiety: Yes Hx Depression: Yes - SURGICAL HISTORY Hx Cholecystectomy: Yes Hx Coronary Artery Bypass Graft: No Hx Coronary Stent: Yes (x3) - ANESTHESIA Hx Anesthesia: Yes Hx Anesthesia Reactions: No Hx Malignant Hyperthermia: No Meds Allergies/Adverse Reactions: Allergies Allergy/AdvReac Type Severity Reaction Status Date / Time codeine Allergy Intermediate HEADACHE Verified 10/20/18 00:21 ampicillin Allergy RASH Verified 10/20/18 00:21 - Medications Medications: Current Medications Aspirin (Ecotrin) 81 mg PO DAILY [facility] Last Admin: 10/20/18 08:55 Dose: 81 mg Atorvastatin Calcium (Lipitor) 20 mg PO HS [facility] Digoxin (Digoxin) 0.125 mg PO DAILY [facility] Last Admin: 10/20/18 08:54 Dose: 0.125 mg Enoxaparin Sodium (Lovenox) 40 mg SC DAILY [facility]; Protocol Last Admin: 10/20/18 08:52 Dose: 40 mg Home Med (Melatonin [Melatin]) 3 mg PO HS [facility] Home Med (Ropinirole [Requip]) 0.25 mg PO BID [facility] Insulin Human Lispro (Humalog) 0 units SC [facility]; Protocol Last Admin: 10/20/18 12:06 Dose: 6 units Isosorbide Mononitrate (Imdur) 60 mg PO DAILY [facility] Last Admin: 10/20/18 08:56 Dose: 60 mg Lisinopril (Zestril) 10 mg PO DAILY [facility] Last Admin: 10/20/18 08:57 Dose: 10 mg Metformin HCl (Glucophage) 500 mg PO DAILYWM [facility] Last Admin: 10/20/18 08:55 Dose: 500 mg Metoprolol Tartrate (Lopressor) 75 mg PO Q12 [facility] Last Admin: 10/20/18 12:08 Dose: 75 mg Nitroglycerin (Nitrostat Sl Tab) 0.4 mg SL Q5M PRN PRN Reason: chest pain Sertraline HCl (Zoloft) 50 mg PO DAILY [facility] Last Admin: 10/20/18 08:55 Dose: 50 mg Spironolactone (Aldactone) 25 mg PO DAILY [facility] Last Admin: 10/20/18 08:53 Dose: 25 mg Tamsulosin HCl (Flomax) 0.4 mg PO DAILY [facility] Last Admin: 10/20/18 08:54 Dose: 0.4 mg Ticagrelor (Brilinta) 90 mg PO Q12 [facility] Last Admin: 10/20/18 08:56 Dose: 90 mg Tramadol HCl (Ultram) 50 mg PO Q8 [facility] Last Admin: 10/20/18 09:05 Dose: 50 mg Physical Exam - Constitutional Appears: No Acute Distress, Chronically Ill - Head Exam Head Exam: ATRAUMATIC, NORMAL INSPECTION, NORMOCEPHALIC - Eye Exam Eye Exam: Normal appearance, PERRL - Neck Exam Neck exam: Positive for: Normal Inspection - Respiratory Exam Respiratory Exam: Decreased Breath Sounds, Clear to Auscultation Bilateral - Cardiovascular Exam Cardiovascular Exam: REGULAR RHYTHM - Extremities Exam Extremities exam: Positive for: pedal pulses present - Back Exam Back exam: muscle spasm - Neurological Exam Neurological exam: Alert, Oriented x3 - Psychiatric Exam Psychiatric exam: Normal Affect, Normal Mood - Skin Skin Exam: Dry, Pallor, Warm Results - Vital Signs Recent Vital Signs: Last Vital Signs Temp 97.8 F 10/20/18 12:18 Pulse 58 L 10/20/18 12:18 Resp 18 10/20/18 12:18 BP 107/56 L 10/20/18 12:18 Pulse Ox 100 10/20/18 12:18 - Labs Result Diagrams: 10/20/18 07:15 10/20/18 07:15 Labs: Laboratory Results - last 24 hr 10/19/18 10/19/18 10/19/18 23:44 23:44 23:44 WBC 7.2 RBC 3.71 L Hgb 11.5 L Hct 34.3 L MCV 92.3 MCH 31.0 MCHC 33.6 RDW 13.8 Plt Count 215 MPV 7.9 Neut % (Auto) 61.1 Lymph % (Auto) 26.3 [place] % (Auto) 7.8 Eos % (Auto) 4.6 H Baso % (Auto) 0.2 Neut # (Auto) 4.4 Lymph # (Auto) 1.9 [place] # (Auto) 0.6 Eos # (Auto) 0.3 Baso # (Auto) 0.0 PT 14.3 H INR 1.3 APTT 33.3 Sodium 134 Potassium 4.2 Chloride 97 L Carbon Dioxide 27 Anion Gap 14 BUN 13 Creatinine 0.8 Est GFR ( Amer) > 60 Est GFR (Non-Af Amer) > 60 POC Glucose (mg/dL) Random Glucose 388 H Calcium 9.2 Total Bilirubin 0.4 AST 18 ALT 23 Alkaline Phosphatase 66 Troponin I 0.0240 NT-Pro-B Natriuret Pep 2900 H Total Protein 7.4 Albumin 4.3 Globulin 3.1 Albumin/Globulin Ratio 1.4 10/20/18 10/20/18 10/20/18 01:12 07:15 07:15 WBC 7.0 RBC 3.58 L Hgb 11.2 L Hct 33.3 L MCV 93.1 MCH 31.4 H MCHC 33.7 RDW 13.8 Plt Count 216 MPV Neut % (Auto) Lymph % (Auto) [place] % (Auto) Eos % (Auto) Baso % (Auto) Neut # (Auto) Lymph # (Auto) [place] # (Auto) Eos # (Auto) Baso # (Auto) PT INR APTT Sodium Potassium Chloride Carbon Dioxide Anion Gap BUN Creatinine Est GFR ( Amer) Est GFR (Non-Af Amer) POC Glucose (mg/dL) 368 H Random Glucose Calcium Total Bilirubin AST ALT Alkaline Phosphatase Troponin I 0.0530 NT-Pro-B Natriuret Pep Total Protein Albumin Globulin Albumin/Globulin Ratio 10/20/18 10/20/18 10/20/18 07:15 07:37 11:10 WBC RBC Hgb Hct MCV MCH MCHC RDW Plt Count MPV Neut % (Auto) Lymph % (Auto) [place] % (Auto) Eos % (Auto) Baso % (Auto) Neut # (Auto) Lymph # (Auto) [place] # (Auto) Eos # (Auto) Baso # (Auto) PT INR APTT Sodium 137 Potassium 4.1 Chloride 101 Carbon Dioxide 28 Anion Gap 12 BUN 12 Creatinine 0.8 Est GFR ( Amer) > 60 Est GFR (Non-Af Amer) > 60 POC Glucose (mg/dL) 199 H 328 H Random Glucose 200 H Calcium 8.8 Total Bilirubin 0.4 AST 21 ALT 25 Alkaline Phosphatase 60 Troponin I NT-Pro-B Natriuret Pep Total Protein 6.9 Albumin 3.9 Globulin 3.0 Albumin/Globulin Ratio 1.3 Assessment & Plan - Assessment and Plan (Free Text) Assessment: There is no advanced directive in the chart Palliative performance Scale 60% I reviewed medical records, diagnostic tests, examined and interviewed the patient in bed Examined patient in bed, AAOx3, no acute distress, no complaints of pain at this moment but states that he gets upper back pain that radiates to right arm. Goals of Care: Patient states that he is aware of his multiple comorbidities and desires full treatment at this time. During conversation, patient showed an extreme lack of knowledge related to his multiple illnesses. He was not willing to be fully educated at this time. He says that he only came to hospital because he needed pain pills (tramadol) and says he will continue to do so when he runs out of pain medication. The patient also says that he was setup with [facility] care for some home assistance during the last admission. He states that long time friend Yojana Webb should be the decision maker if ever he is no longer able to make his own decisions. He says that the designated, Yojana Wong, is aware of all his healthcare wishes. Her contact information is [phone]. He documented this information on POLST form and form placed in chart. Primary RN made aware Code Status: Full Code as documented on POLST form Impression Pain decreased mobility-says he uses walker at home Needs continued Goals of Care discussions Suggestion assess for pain, (PO meds available as needed) Assist with ADLs, Physical Therapy Will continue Goals of Care discussion Palliative Care will remain on board as needed Time spent with patient 60 min
--- NOTE | 2018-10-20 18:15 | HP ---
CHIEF COMPLAINT: Chest pain. HISTORY OF PRESENT ILLNESS: This is a 73-year-old male with known case of coronary artery disease, congestive heart failure, osteoarthritis, diabetes, COPD, and history of SC in the past who was recently discharged from this hospital for similar complaint after the patient refused further workup. The patient went home, ran out of his medications and did not get to go to his doctor and started having similar symptoms again of chest pain and was brought to the emergency room and was admitted for further management. REVIEW OF SYSTEMS: Positive for arthritis pain and chest pain. Review of system otherwise is negative for headache, dizziness, syncope, loss of consciousness, nausea, vomiting, diarrhea, constipation, any new joint or extremity pain. Review of system of all other organ system is unremarkable except chronic arthritis pain. PAST MEDICAL HISTORY: Significant for coronary artery disease, hypertension, congestive heart failure, cardiac arrhythmia, arthritis, anemia, and emphysema. PAST SURGICAL HISTORY: Remarkable for cataract surgery and coronary artery stenting. PERSONAL HISTORY: The patient is currently nonsmoker, nondrinker. No substance abuse. MEDICATIONS: The patient is on multiple medication which is as per reconciliation sheet, which was reviewed and ordered. ALLERGIES: THE PATIENT IS NOT ALLERGIC TO ANY MEDICATIONS. FAMILY HISTORY: Noncontributory. PHYSICAL EXAMINATION: GENERAL: Well-developed and well-nourished 73-year-old elderly male, in no acute distress. VITAL SIGNS: Temperature 97.8, pulse 61, respirations 18, and blood pressure 130/76. HEENT: Pupils reacting to light. No JVD. No thyromegaly. No lymphadenopathy. No nystagmus. Normocephalic and atraumatic skull. HEART: S1, S2 normal and regular. No significant murmur, gallop or rubs are heard. LUNGS: Shows good bilateral air entry. No rales or rhonchi. ABDOMEN: Soft and nontender. No organomegaly. No fluids. Bowel sounds are plus and normal. EXTREMITIES: No edema. No calf swelling. No tenderness. No acute ischemia. CENTRAL NERVOUS SYSTEM: Essentially unchanged. There is no sign of any acute gross focal, motor, sensory or neurological deficits. DIAGNOSTIC DATA: Available diagnostic data reviewed. Telemetry monitoring does not show significant arrhythmia. EKG does not reveal any acute ST-T changes. The patient is in normal sinus rhythm with T inversion in anterior leads. WBC 7.2, hemoglobin 11.5, hematocrit 34.2, and platelets 215. PT 14.3, PTT 33. Sodium 134, potassium 4.2, chloride 97, bicarbonate 27, BUN 13, creatinine 0.8. BNP level is 2900. Troponin is 0.02. ADMITTING IMPRESSION: Chest pain, rule out acute coronary syndrome; decompensated heart failure; type 2 diabetes with hyperglycemia; hypertension; anemia; and chronic obstructive pulmonary disease. PLAN: As ordered. Case and plan discussed with the patient. Vito Carter MD
[2018-10-20] MEDS ORDERED: MELATONIN 3 MG PO SCH (22:00)
[2018-10-21 04:59] VITALS: O2SAT 100
[2018-10-21 05:36] LABS: HEMOGLOBIN 10.6 g/dL (12.0-18.0); MEAN CELL VOLUME 92.8 fl (80.0-94.0); MEAN CORPUSCULAR HGB CONC 33.4 g/dL (33.0-37.0); RBC 3.42 Mil/uL (4.40-5.90); WHITE BLOOD COUNT 7.4 K/uL (4.8-10.8)
[2018-10-21 05:58] LABS: ALB/GLOB RATIO 1.3 (1.0-2.1); ALBUMIN 3.7 g/dL (3.5-5.0); ALT/SGPT 23 U/L (21-72); AST/SGOT 23 U/L (17-59); BLOOD UREA NITROGEN 19 mg/dl (9-20); CALCIUM 9.3 mg/dL (8.4-10.2); GFR NON-AFRICAN AMERICAN > 60
[2018-10-21] MEDS: Insulin Lispro (humaLOG) 100 Units/ml Inj SC SCH ×2 (08:10→12:20)
[2018-10-21 08:15] VITALS: RESP 18
[2018-10-21] MEDS: Enoxaparin 40 mg Syringe SC SCH (08:43)
--- NOTE | 2018-10-21 09:38 | CP.PCM.PN ---
Subjective - Date & Time of Evaluation Date of Evaluation: 10/21/18 Time of Evaluation: 07:00 - Subjective Subjective: 73 y/o M was seen and examined by bedside with Dr Carter. Pt complains of chest pain and upper back pain which is only relieved with PO Tramadol. Pt afebrile, toelratinf PO with No acute events overnight. Palliative care team on board. Objective - Vital Signs/Intake and Output Vital Signs (last 24 hours): Temp Pulse Resp BP Pulse Ox 98.2 F 54 L 18 107/52 L 100 10/21/18 08:15 10/21/18 08:15 10/21/18 08:15 10/21/18 08:15 10/21/18 08:15 - Medications Medications: Current Medications Aspirin (Ecotrin) 81 mg PO DAILY [facility] Last Admin: 10/21/18 08:45 Dose: 81 mg Atorvastatin Calcium (Lipitor) 20 mg PO HS [facility] Last Admin: 10/20/18 21:27 Dose: 20 mg Digoxin (Digoxin) 0.125 mg PO DAILY [facility] Last Admin: 10/20/18 08:54 Dose: 0.125 mg Docusate Sodium (Colace) 100 mg PO BID [facility] Last Admin: 10/21/18 08:56 Dose: 100 mg Enoxaparin Sodium (Lovenox) 40 mg SC DAILY [facility]; Protocol Last Admin: 10/21/18 08:43 Dose: 40 mg Home Med (Melatonin [Melatin]) 3 mg PO HS [facility] Home Med (Ropinirole [Requip]) 0.25 mg PO BID [facility] Insulin Human Lispro (Humalog) 0 units SC [facility]; Protocol Last Admin: 10/21/18 08:10 Dose: 2 units Isosorbide Mononitrate (Imdur) 60 mg PO DAILY [facility] Last Admin: 10/21/18 08:44 Dose: 60 mg Lisinopril (Zestril) 10 mg PO DAILY [facility] Last Admin: 10/20/18 08:57 Dose: 10 mg Metformin HCl (Glucophage) 500 mg PO DAILYWM [facility] Last Admin: 10/21/18 08:44 Dose: 500 mg Metoprolol Tartrate (Lopressor) 75 mg PO Q12 [facility] Last Admin: 10/21/18 08:45 Dose: 75 mg Nitroglycerin (Nitrostat Sl Tab) 0.4 mg SL Q5M PRN PRN Reason: chest pain Sertraline HCl (Zoloft) 50 mg PO DAILY [facility] Last Admin: 10/21/18 08:44 Dose: 50 mg Spironolactone (Aldactone) 25 mg PO DAILY [facility] Last Admin: 10/21/18 08:44 Dose: 25 mg Tamsulosin HCl (Flomax) 0.4 mg PO DAILY [facility] Last Admin: 10/21/18 08:43 Dose: 0.4 mg Ticagrelor (Brilinta) 90 mg PO Q12 [facility] Last Admin: 10/21/18 08:44 Dose: 90 mg Tramadol HCl (Ultram) 50 mg PO Q8 [facility] Last Admin: 10/21/18 08:56 Dose: 50 mg - Labs Labs: 10/21/18 04:40 10/21/18 04:40 PT 14.3 Seconds (9.8-13.1) H 10/19/18 23:44 INR 1.3 10/19/18 23:44 APTT 33.3 Seconds (25.6-37.1) 10/19/18 23:44 - Additional Findings Additional findings: - Constitutional Appears: No Acute Distress - Head Exam Head Exam: ATRAUMATIC, NORMAL INSPECTION - Eye Exam Eye Exam: EOMI, Normal appearance - ENT Exam ENT Exam: Mucous Membranes Moist - Respiratory Exam Respiratory Exam: NORMAL BREATHING PATTERN. absent: Rales, Rhonchi, Wheezes, Respiratory Distress - Cardiovascular Exam Cardiovascular Exam: +S1, +S2 - GI/Abdominal Exam GI & Abdominal Exam: Normal Bowel Sounds, Soft. absent: Guarding, Rebound, Rigid, Tenderness - Back Exam Back exam: absent: CVA tenderness (L), CVA tenderness (R) - Neurological Exam Neurological exam: Alert, Oriented x3 Assessment and Plan - Assessment and Plan (Free Text) Assessment: 73 y/o M with a PMHx of multiple admissions for chest pain, NM, COPD, DM, HTN, CAD with 3 PCI ,arthritis, CHF , NSTEMI (Refused cath) and chronic anemia admitted to [facility] for evaluation and management of chest pain. PLAN: >Acute chest pain --Stable --Palliative care team on board. --Hx of multiples NM, last one was NSTEMI 1 month ago. --Pt currently declining cardiac procedures. --Troponin negative x3 --C/w home meds: ASA 81 QD, Brilinta 90mg q12h, Nitrostat PRN chest pain --C/w O2 by NC, to keep Spo2 >92% --Continuous cardiac monitoring. --Heart Healthy diet --Cardiology consult, Dr House. --Tramadol PRN >Chronic CHF, systolic dysfunction --Last echo in 12/2017: LVEF 20% with LVH --C/w home meds: Lisinopril , Metoprolol, Digoxin --Cardiology consult, Dr House. >Osteoarthritis --Chronic --Tramadol PRN >NIDDM --Chronic, uncontrolled --Last A1C 8.1 on 07/2018 --Accuchecks. --Insulin Sliding scale and hypoglycemia protocol. >COPD --Stable --C/w O2 by NC, to keep Spo2 >92% >Hypertension --Chronic, controlled --Resume home meds >Chronic normocytic anemia --Hgb 11.9-stable >DVT prophylaxis --Lovenox 40mg SC daily Case discussed with Dr Emma Gaitan PGY-2
[2018-10-21] MEDS: Digoxin 125 mcg (0.125 mg) Tab PO SCH (10:00)
--- NOTE | 2018-10-21 10:42 | CP.PCM.PN ---
Subjective - Date & Time of Evaluation Date of Evaluation: 10/21/18 Time of Evaluation: 09:00 - Subjective Subjective: NO CHEST PAIN PRESENTLY BUT PATIENT COMPLAINS OF PAIN EVERYWHERE AND IS ASKING FOR TRAMADOL Objective - Vital Signs/Intake and Output Vital Signs (last 24 hours): Temp Pulse Resp BP Pulse Ox 98.2 F 54 L 18 107/52 L 100 10/21/18 08:15 10/21/18 08:15 10/21/18 08:15 10/21/18 08:15 10/21/18 08:15 - Medications Medications: Current Medications Aspirin (Ecotrin) 81 mg PO DAILY [facility] Last Admin: 10/21/18 08:45 Dose: 81 mg Atorvastatin Calcium (Lipitor) 20 mg PO HS [facility] Last Admin: 10/20/18 21:27 Dose: 20 mg Digoxin (Digoxin) 0.125 mg PO DAILY [facility] Last Admin: 10/20/18 08:54 Dose: 0.125 mg Docusate Sodium (Colace) 100 mg PO BID [facility] Last Admin: 10/21/18 08:56 Dose: 100 mg Enoxaparin Sodium (Lovenox) 40 mg SC DAILY [facility]; Protocol Last Admin: 10/21/18 08:43 Dose: 40 mg Home Med (Melatonin [Melatin]) 3 mg PO [facility] Home Med (Ropinirole [Requip]) 0.25 mg PO BID [facility] Insulin Human Lispro (Humalog) 0 units [place] [facility]; Protocol Last Admin: 10/21/18 08:10 Dose: 2 units Isosorbide Mononitrate (Imdur) 60 mg PO DAILY [facility] Last Admin: 10/21/18 08:44 Dose: 60 mg Lisinopril (Zestril) 10 mg PO DAILY [facility] Last Admin: 10/20/18 08:57 Dose: 10 mg Metformin HCl (Glucophage) 500 mg PO DAILYWM [facility] Last Admin: 10/21/18 08:44 Dose: 500 mg Metoprolol Tartrate (Lopressor) 75 mg PO Q12 [facility] Last Admin: 10/21/18 08:45 Dose: 75 mg Nitroglycerin (Nitrostat Sl Tab) 0.4 mg SL Q5M PRN PRN Reason: chest pain Sertraline HCl (Zoloft) 50 mg PO DAILY [facility] Last Admin: 10/21/18 08:44 Dose: 50 mg Spironolactone (Aldactone) 25 mg PO DAILY [facility] Last Admin: 10/21/18 08:44 Dose: 25 mg Tamsulosin HCl (Flomax) 0.4 mg PO DAILY [facility] Last Admin: 10/21/18 08:43 Dose: 0.4 mg Ticagrelor (Brilinta) 90 mg PO Q12 [facility] Last Admin: 10/21/18 08:44 Dose: 90 mg Tramadol HCl (Ultram) 50 mg PO Q8 [facility] Last Admin: 10/21/18 08:56 Dose: 50 mg - Labs Labs: 10/21/18 04:40 10/21/18 04:40 PT 14.3 Seconds (9.8-13.1) H 10/19/18 23:44 INR 1.3 10/19/18 23:44 APTT 33.3 Seconds (25.6-37.1) 10/19/18 23:44 - Respiratory Exam Respiratory Exam: Clear to Ausculation Bilateral - Cardiovascular Exam Cardiovascular Exam: REGULAR RHYTHM, +S1, +S2 - Extremities Exam Additional comments: NO LE EDEMA - Additional Findings Additional findings: EKG MONOTOR SHOWS NSR PALLIATIVE CARE NOTE REVIEWED Assessment and Plan - Assessment and Plan (Free Text) Assessment: CAD-STABLE HYPERTENSION HYPERLIPIDEMIA TYPE 2 DM CURRENT SMOKER Plan: CONTINUE ALDACTONE, BRILINTA, DIGOXIN, ASPIRIN, ATORVASTATIN, ISOSORBIDE MONONITRATE, METOPROLOL, LISINOPRIL, LOVENOX
--- NOTE | 2018-10-21 11:13 | CP.PCM.PCO ---
Assessment/Plan - Assessment and Plan (Free Text) Assessment: Patient seen and examined today VSS. chest pain free Cleared by PMD and Dr House on his home regimen. Referred to Dr Dodson office for home visits since patient is unable to follow up at the office anymore. Discussed with Dr Gaitan working with Dr Carter who agrees with plan. rx for ultram given for 5 day supply.
--- NOTE | 2018-10-21 11:43 | CP.PCM.DIS ---
Provider - Provider Date of Admission: 10/19/18 23:50 Attending physician: Vito Carter MD Primary care physician: Vito Carter MD Consults: 10/20/18 06:36 Cardiology Consult Routine Comment: Consulting Provider: Maximo House Consulting Physician: Maximo House Reason for Consult: Chest pain 10/20/18 10:56 Palliative Care Consult Routine Comment: Consulting Provider: Domenica Suarez Physician Instructions: Reason For Exam: advance directive Time Spent in preparation of Discharge (in minutes): 35 Diagnosis - Discharge Diagnosis (1) Chest pain Status: Acute Priority: High Hospital Course - Lab Results Lab Results: Most Recent Lab Values WBC 7.4 K/uL (4.8-10.8) 10/21/18 04:40 RBC 3.42 Mil/uL (4.40-5.90) L 10/21/18 04:40 Hgb 10.6 g/dL (12.0-18.0) L 10/21/18 04:40 Hct 31.7 % (35.0-51.0) L 10/21/18 04:40 MCV 92.8 fl (80.0-94.0) 10/21/18 04:40 MCH 31.0 pg (27.0-31.0) 10/21/18 04:40 MCHC 33.4 g/dL (33.0-37.0) 10/21/18 04:40 RDW 14.0 % (11.5-14.5) 10/21/18 04:40 Plt Count 241 K/uL (130-400) 10/21/18 04:40 MPV 7.9 fl (7.2-11.7) 10/19/18 23:44 Neut % (Auto) 61.1 % (50.0-75.0) 10/19/18 23:44 Lymph % (Auto) 26.3 % (20.0-40.0) 10/19/18 23:44 Thomas % (Auto) 7.8 % (0.0-10.0) 10/19/18 23:44 Eos % (Auto) 4.6 % (0.0-4.0) H 10/19/18 23:44 Baso % (Auto) 0.2 % (0.0-2.0) 10/19/18 23:44 Neut # (Auto) 4.4 K/uL (1.8-7.0) 10/19/18 23:44 Lymph # (Auto) 1.9 K/uL (1.0-4.3) 10/19/18 23:44 Thomas # (Auto) 0.6 K/uL (0.0-0.8) 10/19/18 23:44 Eos # (Auto) 0.3 K/uL (0.0-0.7) 10/19/18 23:44 Baso # (Auto) 0.0 K/uL (0.0-0.2) 10/19/18 23:44 PT 14.3 Seconds (9.8-13.1) H 10/19/18 23:44 INR 1.3 10/19/18 23:44 APTT 33.3 Seconds (25.6-37.1) 10/19/18 23:44 Sodium 137 mmol/l (132-148) 10/21/18 04:40 Potassium 4.7 MMOL/L (3.6-5.0) 10/21/18 04:40 Chloride 100 mmol/L (98-107) 10/21/18 04:40 Carbon Dioxide 30 mmol/L (22-30) 10/21/18 04:40 Anion Gap 12 (10-20) 10/21/18 04:40 BUN 19 mg/dl (9-20) 10/21/18 04:40 Creatinine 1.1 mg/dl (0.8-1.5) 10/21/18 04:40 Est GFR ( Amer) > 60 10/21/18 04:40 Est GFR (Non-Af Amer) > 60 10/21/18 04:40 POC Glucose (mg/dL) 105 mg/dL (65-110) 10/21/18 10:58 Random Glucose 157 mg/dL (75-110) H 10/21/18 04:40 Calcium 9.3 mg/dL (8.4-10.2) 10/21/18 04:40 Phosphorus 4.7 mg/dl (2.5-4.5) H 10/21/18 04:40 Magnesium 1.7 MG/DL (1.6-2.3) 10/21/18 04:40 Total Bilirubin 0.4 mg/dl (0.2-1.3) 10/21/18 04:40 AST 23 U/L (17-59) 10/21/18 04:40 ALT 23 U/L (21-72) 10/21/18 04:40 Alkaline Phosphatase 55 U/L (38-126) 10/21/18 04:40 Troponin I 0.0400 ng/mL (0.00-0.120) 10/20/18 16:04 NT-Pro-B Natriuret Pep 2900 pg/ml (0-900) H 10/19/18 23:44 Total Protein 6.5 G/DL (6.3-8.2) 10/21/18 04:40 Albumin 3.7 g/dL (3.5-5.0) 10/21/18 04:40 Globulin 2.8 gm/dL (2.2-3.9) 10/21/18 04:40 Albumin/Globulin Ratio 1.3 (1.0-2.1) 10/21/18 04:40 - Hospital Course Hospital Course: 73 y/o M with a PMHx of multiple admissions for chest pain, AR, COPD, DM, HTN, CAD with 3 PCI ,arthritis, CHF , NSTEMI (Refused cath) and chronic anemia admitted to [facility] for evaluation and management of chest pain. Hx of multiples AR, last one was NSTEMI 1 month ago. Pt currently declining cardiac procedures. palliative care team evaluated patient. Pt's designated decision maker, Yojana Wong, is aware of all his healthcare wishes. Her contact information is [phone]. Today, pt was seen and examined with Dr Carter by bedside. Pt is stable, tolerating PO, pain improves with PO Tramadol, is discharged home with home visit set up and 5 days supply for Tramadol . Discharge Exam - Additional Findings Additional findings: - Constitutional Appears: No Acute Distress - Head Exam Head Exam: ATRAUMATIC, NORMAL INSPECTION - Eye Exam Eye Exam: EOMI, Normal appearance - ENT Exam ENT Exam: Mucous Membranes Moist - Respiratory Exam Respiratory Exam: NORMAL BREATHING PATTERN. absent: Rales, Rhonchi, Wheezes, Respiratory Distress - Cardiovascular Exam Cardiovascular Exam: +S1, +S2 - GI/Abdominal Exam GI & Abdominal Exam: Normal Bowel Sounds, Soft. absent: Guarding, Rebound, Rigid, Tenderness - Back Exam Back exam: absent: CVA tenderness (L), CVA tenderness (R) - Neurological Exam Neurological exam: Alert, Oriented x3 Discharge Plan - Discharge Medications Prescriptions: Tramadol HCl [Ultram] 50 mg PO Q8 #15 tablet - Follow Up Plan Condition: STABLE Disposition: HOME/ ROUTINE Instructions: Chest Pain (DC) Additional Instructions: will follow up with pt at home. Referrals: Vito Carter MD [Primary Care Provider] - Estuardo Pastrana MD [Staff Provider] - Maximo House MD [Staff Provider] -
[2018-10-21 12:22] VITALS: BP 106/50; PULSE 62; TEMP 97.9
[2018-10-21 13:32] VITALS: PULSE 61
== END 2018-10-21 15:37 | disposition home health service (06) ==
LOC: H.ER 22:43 → H.ERHOLD 23:50 → H.TEL 10-20 01:57
PROVIDERS: ADMIT Internal Medicine; ATTEND Internal Medicine
DX: R07.9 Chest pain, unspecified (principal); E11.9 Type 2 diabetes mellitus without complications; E78.00 Pure hypercholesterolemia, unspecified; E78.5 Hyperlipidemia, unspecified; F17.210 Nicotine dependence, cigarettes, uncomplicated; G35 Multiple sclerosis; I11.0 Hypertensive heart disease with heart failure; I25.10 Atherosclerotic heart disease of native coronary artery without angina pectoris; I25.2 Old myocardial infarction; I50.9 Heart failure, unspecified; J43.9 Emphysema, unspecified; N40.0 Benign prostatic hyperplasia without lower urinary tract symptoms; Z51.5 Encounter for palliative care; Z79.82 Long term (current) use of aspirin; Z86.73 Personal history of transient ischemic attack (TIA), and cerebral infarction without residual deficits; Z87.01 Personal history of pneumonia (recurrent); Z90.49 Acquired absence of other specified parts of digestive tract; Z91.19 Patient's noncompliance with other medical treatment and regimen; Z95.5 Presence of coronary angioplasty implant and graft; D64.9 Anemia, unspecified; F32.9 Major depressive disorder, single episode, unspecified; F41.9 Anxiety disorder, unspecified; M19.90 Unspecified osteoarthritis, unspecified site; Z79.84 Long term (current) use of oral hypoglycemic drugs; Z79.899 Other long term (current) drug therapy
CPT/HCPCS: 36415; 71045; 80053; 82948; 83735; 83880; 84100; 84484; 85025; 85027; 85610; 85730; 93005; 99285; G0378; J1650

== ENCOUNTER 2018-11-23 21:46 | Observation (INO) | payer MEDICARE ==
[2018-11-23 21:46] VITALS: BMI 19.5
--- NOTE | 2018-11-23 22:31 | ED PDOC ---
HPI: Chest Pain Time Seen by Provider: 11/23/18 21:54 Chief Complaint (Nursing): Chest Pain Chief Complaint (Provider): Chest Pain History Per: Patient History/Exam Limitations: no limitations Onset/Duration Of Symptoms: Days Current Symptoms Are (Timing): Still Present Additional Complaint(s): 73 y/o male with a PMHx of Asthma, HTN, CAD, CHF, COPD, Pneumonia, MS, DM, TIA, HLD and Hypercholesterolemia presents to the ED for evaluation of chest pain, onset earlier tonight. Patient states pain begins in the left side of the chest and radiates to the right side of the back. Patient notes of taking Nitro with no relief of symptoms. Of note, patient reports of having run out of tramadol two days ago. Otherwise, patient denies shortness of breath, fever, and any jovita tional URI symptoms. Patient known to ED staff and provider for frequent visits of the same complaint. PMD: Estuardo Pastrana Past Medical History Reviewed: Historical Data, Nursing Documentation, Vital Signs Vital Signs: Last Vital Signs Temp 98.3 F 11/23/18 21:47 Pulse 78 11/23/18 21:47 Resp 18 11/23/18 21:47 BP 122/83 11/23/18 21:47 Pulse Ox 96 11/23/18 21:47 Primary Care Provider: Estuardo Pastrana - Medical History PMH: Anemia, Anxiety, Arthritis, Asthma, Benign Prostatic Hyperplasia, CAD, Cardia Arrhythmia, CHF, COPD, CVA, Depression, Diabetes, Emphysema, Fractures (bilateral feet), HTN, Hypercholesterolemia, Hyperlipidemia, Multiple Sclerosis, Pneumonia, TIA Denies: Bronchitis, HIV, Chronic Kidney Disease - Surgical History Surgical History: Cholecystectomy, Coronary Stent (x3) Denies: CABG - Family History Family History: States: Unknown Family Hx, Diabetes - Home Medications Home Medications: Ambulatory Orders Medication Instructions Recorded Sertraline [Zoloft] 50 mg PO DAILY #30 tab 09/18/17 Tamsulosin [Flomax] 0.4 mg PO DAILY #30 cap 09/18/17 Nitroglycerin [Nitrostat SL Tab] 0.4 mg SL Q5MIN PRN 04/24/18 Aspirin [Ecotrin] 81 mg PO DAILY #100 tabec 04/30/18 Isosorbide Mononitrate ER [Imdur 60 mg PO DAILY 05/16/18 ER] Lisinopril [Zestril] 10 mg PO DAILY 05/16/18 Melatonin [Melatin] 3 mg PO HS 05/16/18 Ticagrelor [Brilinta] 90 mg PO Q12 05/16/18 Atorvastatin [Lipitor] 20 mg PO HS 08/12/18 metFORMIN [glucOPHAGE] 500 mg PO DAILY 08/12/18 Metoprolol Tartrate [Lopressor] 75 mg PO Q12 #60 tab 08/26/18 Digoxin 0.125 mg PO DAILY #30 tab 10/13/18 rOPINIRole [Requip] 0.25 mg PO BID #60 tab 10/13/18 Tramadol HCl [Ultram] 50 mg PO Q8 #15 tablet 10/21/18 - Allergies Allergies/Adverse Reactions: Allergies Allergy/AdvReac Type Severity Reaction Status Date / Time codeine Allergy Intermediate HEADACHE Verified 10/20/18 00:21 ampicillin Allergy RASH Verified 10/20/18 00:21 CARMEN Risk Score for UA/NSTEMI - CARMEN Risk Score Age > 64: YES 3 or more CAD Risk Factors: YES Known CAD (Stenosis greater than 50%): YES Aspirin use in past 7 days: YES Severe Angina: NO EKG ST changes greater than 0.5mm: NO Positive Cardiac Marker: NO CARMEN Score: 4 Risk %: 20% Review of Systems ROS Statement: Except As Marked, All Systems Reviewed And Found Negative Constitutional: Negative for: Fever ENT: Negative for: Nose Discharge, Nose Congestion, Throat Pain Cardiovascular: Positive for: Chest Pain Respiratory: Negative for: Cough, Shortness of Breath Physical Exam - Reviewed Nursing Documentation Reviewed: Yes Vital Signs Reviewed: Yes - Physical Exam Appears: Positive for: No Acute Distress Head Exam: Positive for: ATRAUMATIC, NORMOCEPHALIC Skin: Positive for: Normal Color, Warm, Dry Eye Exam: Positive for: Normal appearance, EOMI, PERRL ENT: Positive for: Normal ENT Inspection Neck: Positive for: Normal, Painless ROM, Supple Cardiovascular/Chest: Positive for: Regular Rate, Rhythm. Negative for: Murmur Respiratory: Positive for: Normal Breath Sounds. Negative for: Respiratory Distress Gastrointestinal/Abdominal: Positive for: Normal Exam, Soft. Negative for: Tenderness Back: Positive for: Normal Inspection. Negative for: L CVA Tenderness, R CVA Tenderness, Vertebral Tenderness Extremity: Positive for: Normal ROM. Negative for: Pedal Edema, Deformity Neurological/Psych: Positive for: Awake, Alert, Oriented (x3). Negative for: Motor/Sensory Deficits - Laboratory Results Result Diagrams: 11/23/18 22:40 11/23/18 22:40 - ECG ECG: Positive for: Interpreted By Me, Viewed By Me ECG Rhythm: Positive for: Sinus Rhythm (normal at 71bpm), Right Bundle Branch Block Interpretation Of ECG: Left ventricular hypertrophy O2 Sat by Pulse Oximetry: 96 (RA) Pulse Ox Interpretation: Normal Medical Decision Making Medical Decision Making: Time: 2225 Impression: Chest Pain rule out cardiac etiology, copd, muscular chest pain Plan: -- EKG -- CMP -- Troponin I -- CBC with Differentials -- CXR Two Views -- Ultram 50 mg PO 0059 Labs reviewed and sugar slightly elevated. Patient notes pain has improved. pt given ASA. Case discussed with Dr. Preston and pt to be admitted under Dr. Pastrana as obs/tele. Scribe Attestation: Documented by Angel Evans, acting as a scribe forSusie Clemons MD. Provider Scribe Attestation: All medical record entries made by the Scribe were at my direction and personally dictated by me. I have reviewed the chart and agree that the record accurately reflects my personal performance of the history, physical exam, medical decision making, and the department course for this patient. I have also personally directed, reviewed, and agree with the discharge instructions and disposition. Disposition - Clinical Impression Clinical Impression: COPD (chronic obstructive pulmonary disease) with emphysema, Chest pain - Patient ED Disposition Is Patient to be Admitted: Yes Counseled Patient/Family Regarding: Studies Performed, Diagnosis - Disposition Disposition Time: 00:00 Condition: STABLE - Pt Status Changed To: Hospital Disposition Of: Observation
[2018-11-23 23:06] LABS: BASO # 0.1 K/uL (0.0-0.2); BASO % 1.3 % (0.0-2.0); EOS # 0.3 K/uL (0.0-0.7); EOS % 4.6 % (0.0-4.0); HEMOGLOBIN 10.8 g/dL (12.0-18.0); LYMPH # 1.8 K/uL (1.0-4.3); LYMPH % 25.3 % (20.0-40.0); MEAN CELL VOLUME 91.9 fl (80.0-94.0); MEAN CORPUSCULAR HEMOGLOBIN 31.2 pg (27.0-31.0); MEAN CORPUSCULAR HGB CONC 33.9 g/dL (33.0-37.0); MONO # 0.5 K/uL (0.0-0.8); MONO % 7.5 % (0.0-10.0); NEUT # 4.3 K/uL (1.8-7.0); NEUT % 61.3 % (50.0-75.0); NRBC % 0.1 % (0.0-0.0); RBC 3.45 Mil/uL (4.40-5.90); RED CELL DISTRIBUTION WIDTH 13.5 % (11.5-14.5)
[2018-11-23 23:12] LABS: ALB/GLOB RATIO 1.4 (1.0-2.1); ALBUMIN 3.9 g/dL (3.5-5.0); ALT/SGPT 17 U/L (21-72); AST/SGOT 18 U/L (17-59); BLOOD UREA NITROGEN 12 mg/dl (9-20); CALCIUM 8.7 mg/dL (8.4-10.2); GFR NON-AFRICAN AMERICAN > 60
[2018-11-24] MEDS ORDERED: Insulin Regular 100 units/ml SC STA (01:00)
[2018-11-24] MEDS ORDERED: Insulin Regular 100 units/ml ONE (01:10)
[2018-11-24 05:25] VITALS: RESP 18
--- NOTE | 2018-11-24 08:36 | RAD ---
Date of service: 11/23/2018 HISTORY: chest pain COMPARISON: Portable chest 10/19/2018. TECHNIQUE: Chest PA and lateral views FINDINGS: LUNGS: No active pulmonary disease. PLEURA: No significant pleural effusion identified. No pneumothorax apparent. CARDIOVASCULAR: Calcific atherosclerotic changes are seen related to the thoracic aorta. Normal cardiac size. No pulmonary vascular congestion. OSSEOUS STRUCTURES: No significant abnormalities. VISUALIZED UPPER ABDOMEN: Surgical clips reiterated right upper quadrant abdomen. OTHER FINDINGS: None. IMPRESSION: No interval acute cardiopulmonary disease appreciated.
[2018-11-24] MEDS ORDERED: ROPINIROLE 0.25 MG PO SCH (09:00)
[2018-11-24] MEDS ORDERED: Digoxin 125 mcg (0.125 mg) Tab PO SCH (09:00)
[2018-11-24 09:48] VITALS: PULSE 54
--- NOTE | 2018-11-24 10:13 | CP.PCM.CON ---
History of Present Illness - History of Present Illness History of Present Illness: THE PATIENT IS A 73 YEAR OLD MALE WITH A HISTORY OF AN ACUTE STEMI ABOUT 5 YEARS AGO WITH A CODE HEART BEING CALLED AT [facility] ER AND THE PATIENT WAS TRANSFERRED TO [facility] AND HAD STENT INSERTIONS. HE WAS ADMITTED OVER THE PAST 2 YEARS WITH NSTEMI AND HAD REFUSED A CARDIAC CATH FOR INVASIVE CARDIAC TREATMENT AND HAS OPTED FOR JUST MEDICAL TREATMENT DESPITE BEING TOLD OF LV DAMAGE THE POSSIBILITY OF . HE ALSO HAS A HISTORY OF HYPERTENSION, HYPERLIPIDEMIA, TYPE 2 DM, AN OLD TIA/CVA AND MS. HE IS ALSO ADDICTED TO TRAMADOL AND ALWAYS COMES TO THE ER WHEN HE RUNS OUT OF IT AND COMPLAINS OF CHEST PAIN AND HE RECEIVES TRAMADOL AND IS ADMITTED. HE RAN OUT OF TRAMADOL A COUPLE OF DAYS AGO AND CAME TO THE ER YESTERDAY COMPLAINING OF CHEST PAIN AND WAS ADMITTED. HE STATES THAT HIS CHEST PAIN IS BETTER AFTER RECEIVING TRAMADOL. HE DENIES NAUSEA, VOMITING OR DIAPHORESIS. IWAS CALLED TO SEE HIM. Past Patient History - Infectious Disease Hx of Infectious Diseases: None - Tetanus Immunizations Tetanus Immunization: Unknown - Past Medical History & Family History Past Medical History?: Yes - Past Social History Smoking Status: Light Smoker < 10 Cigarettes Daily - CARDIAC Hx Cardiac Disorders: Yes (HTN, CHF, hyperlipidemia, [place], CAD) Hx Heart Attack: Yes Hx Hypertension: Yes - PULMONARY Hx Respiratory Disorders: Yes (COPD) Hx Chronic Obstructive Pulmonary Disease (COPD): Yes - NEUROLOGICAL Hx Neurological Disorder: Yes (MS) Hx Multiple Sclerosis: Yes - HEENT Hx HEENT Problems: No - RENAL Hx Chronic Kidney Disease: No - ENDOCRINE/METABOLIC Hx Endocrine Disorders: Yes (DM) Hx Diabetes Mellitus Type 2: Yes - HEMATOLOGICAL/ONCOLOGICAL Hx Blood Disorders: Yes (anemia) Hx AIDS: No Hx Anemia: Yes Hx Human Immunodeficiency Virus (HIV): No - INTEGUMENTARY Hx Dermatological Problems: No - MUSCULOSKELETAL/RHEUMATOLOGICAL Hx Musculoskeletal Disorders: Yes (osteoarthritis) Hx Falls: No Hx Osteoarthritis: Yes - GASTROINTESTINAL Hx Gastrointestinal Disorders: No - GENITOURINARY/GYNECOLOGICAL Hx Genitourinary Disorders: Yes (BPH) Hx Prostate Problems: Yes - PSYCHIATRIC Hx Psychophysiologic Disorder: Yes (anxiety, depression) Hx Anxiety: Yes Hx Depression: Yes Hx Substance Use: No - SURGICAL HISTORY Hx Surgeries: Yes Hx Cholecystectomy: Yes Hx Coronary Artery Bypass Graft: No Hx Coronary Stent: Yes (x3) - ANESTHESIA Hx Anesthesia: Yes Hx Anesthesia Reactions: No Hx Malignant Hyperthermia: No Has any member of the family had a problem w/ anesthesia?: No Meds Allergies/Adverse Reactions: Allergies Allergy/AdvReac Type Severity Reaction Status Date / Time codeine Allergy Intermediate HEADACHE Verified 10/20/18 00:21 ampicillin Allergy RASH Verified 10/20/18 00:21 - Medications Medications: Current Medications Aspirin (Ecotrin) 81 mg PO DAILY [facility] Last Admin: 11/24/18 09:46 Dose: 81 mg Atorvastatin Calcium (Lipitor) 20 mg PO HS [facility] Digoxin (Digoxin) 0.125 mg PO DAILY [facility] Last Admin: 11/24/18 09:46 Dose: Not Given Home Med (Ropinirole [Requip]) 0.25 mg PO BID [facility] Isosorbide Mononitrate (Imdur) 60 mg PO DAILY [facility] Lisinopril (Zestril) 10 mg PO DAILY [facility] Last Admin: 11/24/18 09:46 Dose: Not Given Metformin HCl (Glucophage) 500 mg PO DAILY [facility] Last Admin: 11/24/18 09:44 Dose: 500 mg Metoprolol Tartrate (Lopressor) 75 mg PO Q12 [facility] Last Admin: 11/24/18 09:46 Dose: Not Given Sertraline HCl (Zoloft) 50 mg PO DAILY [facility] Last Admin: 11/24/18 09:45 Dose: 50 mg Tamsulosin HCl (Flomax) 0.4 mg PO DAILY [facility] Last Admin: 11/24/18 09:45 Dose: 0.4 mg Ticagrelor (Brilinta) 90 mg PO Q12 [facility] Last Admin: 11/24/18 09:45 Dose: 90 mg Tramadol HCl (Ultram) 50 mg PO Q8 PRN PRN Reason: pain Last Admin: 11/24/18 09:45 Dose: 50 mg Physical Exam - Respiratory Exam Respiratory Exam: Clear to Auscultation Bilateral - Cardiovascular Exam Cardiovascular Exam: REGULAR RHYTHM, +S1, +S2 - Extremities Exam Additional comments: NO LE EDEMA OR CALF TENDERNESS - Additional Findings Additional findings: EKG NSR, RBBB, T WAVE INVERSIONS IN THE ANTERIOR-LATERAL LEADS(OLD FINDINGS) TROPONIN NORMAL X 2 Results - Vital Signs Recent Vital Signs: Last Vital Signs Temp 98.0 F 11/24/18 08:00 Pulse 54 L 06/03/19 09:46 Resp 18 11/24/18 08:00 BP 113/75 11/24/18 09:46 Pulse Ox 99 11/24/18 08:00 - Labs Result Diagrams: 11/23/18 22:40 11/23/18 22:40 Labs: Laboratory Results - last 24 hr 11/23/18 11/23/18 11/24/18 22:40 22:40 01:17 WBC 7.0 RBC 3.45 L Hgb 10.8 L Hct 31.7 L MCV 91.9 MCH 31.2 H MCHC 33.9 RDW 13.5 Plt Count 177 MPV 8.0 Neut % (Auto) 61.3 Lymph % (Auto) 25.3 [place] % (Auto) 7.5 Eos % (Auto) 4.6 H Baso % (Auto) 1.3 Neut # (Auto) 4.3 Lymph # (Auto) 1.8 [place] # (Auto) 0.5 Eos # (Auto) 0.3 Baso # (Auto) 0.1 Sodium 134 Potassium 4.0 Chloride 98 Carbon Dioxide 26 Anion Gap 14 BUN 12 Creatinine 0.9 Est GFR ( Amer) > 60 Est GFR (Non-Af Amer) > 60 POC Glucose (mg/dL) 273 H Random Glucose 345 H Calcium 8.7 Total Bilirubin 0.4 AST 18 ALT 17 L D Alkaline Phosphatase 59 Troponin I 0.0340 Total Protein 6.7 Albumin 3.9 Globulin 2.8 Albumin/Globulin Ratio 1.4 11/24/18 11/24/18 05:10 05:55 WBC RBC Hgb Hct MCV MCH MCHC RDW Plt Count MPV Neut % (Auto) Lymph % (Auto) [place] % (Auto) Eos % (Auto) Baso % (Auto) Neut # (Auto) Lymph # (Auto) [place] # (Auto) Eos # (Auto) Baso # (Auto) Sodium Potassium Chloride Carbon Dioxide Anion Gap BUN Creatinine Est GFR ( Amer) Est GFR (Non-Af Amer) POC Glucose (mg/dL) 80 Random Glucose Calcium Total Bilirubin AST ALT Alkaline Phosphatase Troponin I 0.0380 Total Protein Albumin Globulin Albumin/Globulin Ratio Assessment & Plan - Assessment and Plan (Free Text) Assessment: CAD WITH MULTIPLE CO'S IN THE PAST WITH STENT INSERTIONS. NOW WITH CHEST PAIN RELIEVED BY TORADOL. HYPERTENSION HYPERLIPIDEMIA TYPE 2 DM Plan: CONTINUE ASPIRIN, BRILINTA, METOPROLOL, ISOSORBIDE, ATORVASTATIN, DIGOXIN AND LISINOPRIL SERIAL EKGS AND TROPONINS ECHOCARDIOGRAM THE PATIENT ONLY WANTS CONSERVATIVE MEDICAL TREATMENT
--- NOTE | 2018-11-24 10:39 | CP.PCM.HP ---
History of Present Illness - History of Present Illness History of Present Illness: 73 y/o male with a PMHx of Asthma, HTN, CAD, CHF, COPD, Pneumonia, MS, DM, TIA, HLD and Hypercholesterolemia presented to the ED for evaluation of chest pain x 1 day. Patient stated pain begins in the left side of the chest and radiates to the right side of the back. Patient notes of taking Nitro with no relief of symptoms. Patient admitted for further evaluation/management of chest pain. Patient states chest pain improved. Denies sob, abdominal pain, headache, palpitations, n/v/d/c. Meds: as per chart Allergies: as per chart Fam hx: non contributory Present on Admission - Present on Admission Any Indicators Present on Admission: No Review of Systems - Review of Systems All systems: reviewed and no additional remarkable complaints except (mentioned above) Past Patient History - Infectious Disease Hx of Infectious Diseases: None - Tetanus Immunizations Tetanus Immunization: Unknown - Past Medical History & Family History Past Medical History?: Yes - Past Social History Smoking Status: Light Smoker < 10 Cigarettes Daily - CARDIAC Hx Cardiac Disorders: Yes (HTN, CHF, hyperlipidemia, [place], CAD) Hx Heart Attack: Yes Hx Hypertension: Yes - PULMONARY Hx Respiratory Disorders: Yes (COPD) Hx Chronic Obstructive Pulmonary Disease (COPD): Yes - NEUROLOGICAL Hx Neurological Disorder: Yes (MS) Hx Multiple Sclerosis: Yes - HEENT Hx HEENT Problems: No - RENAL Hx Chronic Kidney Disease: No - ENDOCRINE/METABOLIC Hx Endocrine Disorders: Yes (DM) Hx Diabetes Mellitus Type 2: Yes - HEMATOLOGICAL/ONCOLOGICAL Hx Blood Disorders: Yes (anemia) Hx AIDS: No Hx Anemia: Yes Hx Human Immunodeficiency Virus (HIV): No - INTEGUMENTARY Hx Dermatological Problems: No - MUSCULOSKELETAL/RHEUMATOLOGICAL Hx Musculoskeletal Disorders: Yes (osteoarthritis) Hx Falls: No Hx Osteoarthritis: Yes - GASTROINTESTINAL Hx Gastrointestinal Disorders: No - GENITOURINARY/GYNECOLOGICAL Hx Genitourinary Disorders: Yes (BPH) Hx Prostate Problems: Yes - PSYCHIATRIC Hx Psychophysiologic Disorder: Yes (anxiety, depression) Hx Anxiety: Yes Hx Depression: Yes Hx Substance Use: No - SURGICAL HISTORY Hx Surgeries: Yes Hx Cholecystectomy: Yes Hx Coronary Artery Bypass Graft: No Hx Coronary Stent: Yes (x3) - ANESTHESIA Hx Anesthesia: Yes Hx Anesthesia Reactions: No Hx Malignant Hyperthermia: No Has any member of the family had a problem w/ anesthesia?: No Meds Allergies/Adverse Reactions: Allergies Allergy/AdvReac Type Severity Reaction Status Date / Time codeine Allergy Intermediate HEADACHE Verified 10/20/18 00:21 ampicillin Allergy RASH Verified 10/20/18 00:21 Physical Exam - Constitutional Appears: Non-toxic, No Acute Distress - Head Exam Head Exam: NORMAL INSPECTION - Eye Exam Eye Exam: Normal appearance - Neck Exam Neck exam: Positive for: Normal Inspection - Respiratory Exam Respiratory Exam: NORMAL BREATHING PATTERN - Cardiovascular Exam Cardiovascular Exam: +S1, +S2 - GI/Abdominal Exam GI & Abdominal Exam: Soft - Extremities Exam Extremities exam: Positive for: normal inspection - Neurological Exam Neurological exam: Alert, Oriented x3 - Psychiatric Exam Psychiatric exam: Normal Affect, Normal Mood - Skin Skin Exam: Normal Color, Warm Results - Vital Signs Recent Vital Signs: Last Vital Signs Temp 98.0 F 11/24/18 08:00 Pulse 54 L 11/24/18 09:46 Resp 18 11/24/18 08:00 BP 113/75 11/24/18 09:46 Pulse Ox 99 11/24/18 08:00 - Labs Result Diagrams: 11/23/18 22:40 11/23/18 22:40 Labs: Laboratory Results - last 24 hr 11/23/18 11/23/18 11/24/18 22:40 22:40 01:17 WBC 7.0 RBC 3.45 L Hgb 10.8 L Hct 31.7 L MCV 91.9 MCH 31.2 H MCHC 33.9 RDW 13.5 Plt Count 177 MPV 8.0 Neut % (Auto) 61.3 Lymph % (Auto) 25.3 [place] % (Auto) 7.5 Eos % (Auto) 4.6 H Baso % (Auto) 1.3 Neut # (Auto) 4.3 Lymph # (Auto) 1.8 [place] # (Auto) 0.5 Eos # (Auto) 0.3 Baso # (Auto) 0.1 Sodium 134 Potassium 4.0 Chloride 98 Carbon Dioxide 26 Anion Gap 14 BUN 12 Creatinine 0.9 Est GFR ( Amer) > 60 Est GFR (Non-Af Amer) > 60 POC Glucose (mg/dL) 273 H Random Glucose 345 H Calcium 8.7 Total Bilirubin 0.4 AST 18 ALT 17 L D Alkaline Phosphatase 59 Troponin I 0.0340 Total Protein 6.7 Albumin 3.9 Globulin 2.8 Albumin/Globulin Ratio 1.4 11/24/18 11/24/18 05:10 05:55 WBC RBC Hgb Hct MCV MCH MCHC RDW Plt Count MPV Neut % (Auto) Lymph % (Auto) [place] % (Auto) Eos % (Auto) Baso % (Auto) Neut # (Auto) Lymph # (Auto) [place] # (Auto) Eos # (Auto) Baso # (Auto) Sodium Potassium Chloride Carbon Dioxide Anion Gap BUN Creatinine Est GFR ( Amer) Est GFR (Non-Af Amer) POC Glucose (mg/dL) 80 Random Glucose Calcium Total Bilirubin AST ALT Alkaline Phosphatase Troponin I 0.0380 Total Protein Albumin Globulin Albumin/Globulin Ratio Assessment & Plan (1) Chest pain Status: Acute Priority: High - Assessment and Plan (Free Text) Plan: monitor labs monitor vitals trend troponins cardiology consulted, appreciate recommendations rest of plan as ordered
--- NOTE | 2018-11-24 11:29 | CARD ---
APPROVED REPORT Date of service: 11/24/2018 EKG Measurement Heart [id number] AR 240P [id number] <Conclusion> Sinus bradycardia with 1st degree AV block Left anterior fascicular block Left ventricular hypertrophy with repolarization abnormality T wave abnormality, consider anterolateral ischemia Abnormal ECG
--- NOTE | 2018-11-24 11:33 | CARD ---
APPROVED REPORT Date of service: 11/23/2018 EKG Measurement Heart [id number] <Conclusion> Normal sinus rhythm Left axis deviation Left ventricular hypertrophy with repolarization abnormality Abnormal ECG
--- NOTE | 2018-11-24 13:21 | CARD ---
APPROVED REPORT Date of service: 11/24/2018 EXAM: Two-dimensional and M-mode echocardiogram with Doppler and color Doppler. Other Information Quality : AverageRhythm : Pacemaker INDICATION Cardiac Disease: CAD Surgery/Intervention Pacemaker: Status/Post Intervention: Stent 2D DIMENSIONS IVSd0.99 (0.7-1.1cm)LVDd5.46 (3.9-5.9cm) PWd0.97 (0.7-1.1cm)IVSs0.92 (0.8-1.2cm) LVDs5.83 (2.5-4.0cm)FS (%) 6.9 % PWs0.83 (0.8-1.2cm) Aortic Valve AoV Peak Qhlubpwq711.7cm/sAoV VTI24.3cmAO Peak GR.6mmHg LVOT Peak Xvoofncp97.2cm/sLVOT VTI14.95cmAO Mean GR.3mmHg Mitral Valve MV E Repyibch49.5cm/sMV DECEL [id number] A Adurtqdw59.9cm/s MV ZQA47tmH/A ratio0.5MVA (PHT)2.58cm2 TDI Lateral E' Peak V3.26cm/sMedial E' Peak V2.85cm/sE/Lateral E'12.7 E/Medial E'14.6 LEFT VENTRICLE The left ventricle is normal size. There is normal left ventricular wall thickness. The systolic function is severely impaired. The estimated ejection fraction is 25-30% There is global hypokinesis of the left ventricle. Transmitral Doppler flow pattern is Grade I-abnormal relaxation pattern. No left ventricle thrombus noted on this study. There is no ventricular septal defect visualized. There is no left ventricular aneurysm. There is no mass noted in the left ventricle. RIGHT VENTRICLE The right ventricle is normal size. There is normal right ventricular wall thickness. The right ventricular systolic function is normal. ATRIA The left atrium is moderately dilated. The right atrium size is normal. The interatrial septum is intact with no evidence for an atrial septal defect. AORTIC VALVE The aortic valve is normal in structure. No aortic regurgitation is present. There is no aortic valvular stenosis. There is no aortic valvular vegetation. MITRAL VALVE The mitral valve is normal in structure. There is no evidence of mitral valve prolapse. There is no mitral valve stenosis. There is mild mitral valve regurgitation noted. TRICUSPID VALVE The tricuspid valve is normal in structure. There is trace tricuspid valve regurgitation noted. There is no tricuspid valve prolapse or vegetation. There is no tricuspid valve stenosis. PULMONIC VALVE The pulmonary valve is normal in structure. There is no pulmonic valvular regurgitation. There is no pulmonic valvular stenosis. GREAT VESSELS The aortic root is normal in size. The ascending aorta is normal in size. The pulmonary artery is normal. The IVC is normal in size and collapses >50% with inspiration. PERICARDIAL EFFUSION There is no pericardial effusion. There is no pleural effusion. <Conclusion> The systolic function is severely impaired. The estimated ejection fraction is 25-30% There is severe global hypokinesis of the left ventricle. Transmitral Doppler flow pattern is Grade I-abnormal relaxation pattern. The left atrium is moderately dilated. There is mild mitral valve regurgitation noted. There is trace tricuspid valve regurgitation noted.
[2018-11-24 16:14] VITALS: BP 128/70; PULSE 68; TEMP 98.1
[2018-11-26 11:05] VITALS: O2SAT 96
== END 2018-11-24 16:45 | disposition home or self-care (01) ==
LOC: H.ER 21:46 → H.ERHOLD 11-24 00:58 → H.TEL 11-24 02:36
PROVIDERS: ADMIT Family Medicine; ATTEND Family Medicine
DX: R07.9 Chest pain, unspecified (principal); E11.9 Type 2 diabetes mellitus without complications; Z87.01 Personal history of pneumonia (recurrent); E78.00 Pure hypercholesterolemia, unspecified; Z86.73 Personal history of transient ischemic attack (TIA), and cerebral infarction without residual deficits; E78.5 Hyperlipidemia, unspecified; G35 Multiple sclerosis; I11.0 Hypertensive heart disease with heart failure; I25.10 Atherosclerotic heart disease of native coronary artery without angina pectoris; I25.2 Old myocardial infarction; I50.9 Heart failure, unspecified; J43.9 Emphysema, unspecified; N40.0 Benign prostatic hyperplasia without lower urinary tract symptoms; Z79.82 Long term (current) use of aspirin; Z90.49 Acquired absence of other specified parts of digestive tract; Z95.5 Presence of coronary angioplasty implant and graft; D64.9 Anemia, unspecified; F32.9 Major depressive disorder, single episode, unspecified; F41.9 Anxiety disorder, unspecified; M19.90 Unspecified osteoarthritis, unspecified site; Z79.84 Long term (current) use of oral hypoglycemic drugs; Z79.899 Other long term (current) drug therapy; F17.210 Nicotine dependence, cigarettes, uncomplicated
CPT/HCPCS: 36415; 71046; 80053; 82948; 84484; 85025; 93005; 93306; 96372; 99285; G0378